=== PATIENT | female | born 2000 | race Caucasian/White ===

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

== ENCOUNTER 2021-09-24 14:06 | Inpatient (IN) ==
--- NOTE | 2021-09-24 14:42 | Emergency Department Note ---
Impression & Plan Depression with suicidal ideation, Grief reaction ED Provider Note NAME: BAUTISTA ALLRED AGE: 20 SEX: F : 2000 ARRIVES VIA: Walk-In INFORMANT: Patient, ED PROVIDER(S): Pedro Weinberg MD Chief Complaint: Suicidal ideation, depressed mood, grief HPI: Patient presents from home and states that she has been having suicidal thoughts fairly frequently and states that it is at least 5 out of 7 days a week. Patient has been taking jumping off of a parking garage to her . Patient recently is suffering grief of losing a close friend several weeks ago which is also been traumatizing. Patient has had depressed mood SI and plan. No current SI at this very moment but states that it has been very frequent. Patient states her appetite has been appropriate but the patient sleep is been poor and not sleeping as well. Patient does not have any access to guns or weapons. The patient denies any alcohol tobacco or drug use. Patient denies any HI or AVH. The patient is seeking inpatient treatment at this time. ROS: See HPI for pertinent positives and negatives. A total of 10 systems were reviewed and otherwise negative. Past medical history: See below Surgical history: See below Social history: See below Physical Exam: GENERAL: Well appearing, well nourished, NAD, wearing glasses, wearing a mask, non-toxic. EYE EXAM: Normal conjunctiva. PERRL, no anisocoria and EOM's grossly intact w/o pain. NECK: Supple, no nuchal rigidity, no adenopathy, non-tender. No signs of meningismus. LUNGS: Clear to auscultation. Normal chest wall mechanics. HEART: NSR, no MRG. ABDOMEN: Abdomen soft, non-tender, normo-active bowel sounds, no masses, no rebound or guarding. BACK: No CVA TTP. SKIN: No rashes and no bruising. UPPER EXTREMITIES: Upper extremities are grossly normal. LOWER EXTREMITIES: Grossly normal, no edema. NEURO EXAM: A&O x3, cranial nerves II-XII grossly intact, normal speech, moves all 4 extremities on command w/o issue. Good finger to nose, no drift, no sensory deficits. Psych: Positive SI, negative HI or AVH. Differential diagnoses: Mood disorder, infection, hypoglycemia, electrolyte abnormalities, cardiac sources, intracerebral event, toxicologic, trauma, neurologic, as well as other pathologies. Course: Patient was seen and evaluated the bedside. Full history physical exam was performed. MDM: Patient was seen and evaluate due to concern for mental wellness. Blood work was obtained he was deemed medically cleared. She was seen and evaluated by the classification case manager. Referral was made and the patient was accepted to [facility] for [facility] psychiatric treatment. Past Med/Surg History Medical History Gastric polyp MDD (major depressive disorder) No pertinent past medical history Surgical History H/O esophagogastroduodenoscopy No pertinent past surgical history Family History Unknown Adopted Social History Smoking Status: Never smoker Hx Alcohol Use: No Hx Substance Use: No Preferred Language: Telugu Communication Ability: Effective Paper Products Inspector Required: No Beliefs That Will Affect Care: None Feels Safe at Home: Yes Assistive Devices: Glasses Allergies Allergies Allergy/AdvReac Type Severity Reaction Status Date / Time risperidone Allergy Unknown CAN'T Verified 09/24/21 15:30 REMEMBER Home Meds Home Medications Medication Instructions Recorded Confirmed aripiprazole 400 mg intramuscular 400 mg IM MONTHLY 04/07/21 09/24/21 suspension,extended release (Abilify Maintena) benztropine 0.5 mg tablet 0.5 mg PO BID 04/07/21 09/24/21 bupropion HCl 200 mg tablet,12 hr 200 mg PO DAILY 04/07/21 09/24/21 sustained-release hydroxyzine HCl 10 mg tablet 10 mg PO HS 04/07/21 09/24/21 lithium carbonate 450 mg 450 mg PO BID 04/07/21 09/24/21 tablet,extended release prazosin 1 mg capsule 1 mg PO HS 09/24/21 09/24/21 Results & Data (ED) Vital Signs Vital Signs - 24 hr 09/24/21 14:36 09/24/21 18:05 Temperature 36.3 C L Temperature Source Temporal Artery Scan Pulse Rate 88 88 Respiratory Rate 16 16 Blood Pressure 145/72 H 108/74 Blood Pressure Mean 96 Pulse Oximetry 100 98 Oxygen Delivery Method Room Air Sepsis Recent Fever Within 48 Hours No Sepsis New/Unexplained Change in Mental Status No Sepsis Action Taken by Nursing No Action Required Home Medications Current Medication List: was personally reviewed by me Laboratory Data Attestation: I reviewed the patient's lab results. Result diagrams: 09/24/21 15:07 09/24/21 15:07 Lab Results 09/24/21 09/24/21 09/24/21 Range/Units 14:47 14:47 14:47 WBC (4.8-10.8) K/uL RBC (4.2-5.4) M/uL Hgb (12.0-16.0) g/dL Hct (37-47) % MCV (80-100) fL MCH (25-34) pg MCHC (32-36) g/dL RDW Std Deviation (36.4-46.3) fL RDW Coeff of Anali (11.5-14.5) % Plt Count (130-400) K/uL MPV (7.4-10.4) fL Immature Gran % (Auto) % Neut % (Auto) % Lymph % (Auto) % [place] % (Auto) % Eos % (Auto) % Baso % (Auto) % Neut # (Auto) (1.4-6.5) K/uL Lymph # (Auto) (1.2-3.4) K/uL [place] # (Auto) (0.11-0.59) K/uL Eos # (Auto) (0-0.5) K/uL Baso # (Auto) (0-0.2) K/uL Immature Gran # (Auto) (0.00-0.02) K/uL Sodium (136-145) mmol/L Potassium (3.5-5.1) mmol/L Chloride (98-107) mmol/L Carbon Dioxide (21-32) mmol/L Anion Gap (3-11) BUN (6-23) mg/dl Creatinine (0.6-1.2) mg/dl Est Cr Clr Drug Dosing ml/min Est GFR ( Amer) ml/min Est GFR (Non-Af Amer) ml/min BUN/Creatinine Ratio (10-20) Glucose (70-99(Fasting)) mg/dl Calcium (8.5-10.1) mg/dl Total Bilirubin (0.2-1.0) mg/dl AST (13-39) U/L ALT (7-52) U/L Alkaline Phosphatase (34-104) U/L Total Protein (6.0-8.3) gm/dl Albumin (3.4-5.0) gm/dl Globulin (2.5-4.0) gm/dl Albumin/Globulin Ratio (0.9-2) TSH (0.300-4.500) uIu/ml HCG, Qual (Negative) Urine Color Yellow Urine Appearance Clear (Clear) Urine pH 8.0 H (4.5-7.5) Ur Specific [place] 1.006 (1.000-1.030) Urine Protein Negative (Negative) Urine Glucose (UA) Negative (Negative) Urine Ketones Negative (Negative) Urine Blood Negative (Negative) Urine Nitrite Negative (Negative) Urine Bilirubin Negative (Negative) Urine Urobilinogen Negative (Negative) Ur Leukocyte Esterase 1+ H (Negative) Urine WBC (Auto) 1-5 (0-5) /hpf Urine RBC (Auto) 0-4 (0-4) /hpf U Hyaline Cast (Auto) 0 (0-5) /lpf U Epithel Cells (Auto) >30 H (0-5) /lpf Urine Bacteria (Auto) Negative (Negative) Urine Test Negative (Negative) Salicylates (3.0-30) mg/dl Urine Opiates Screen Neg (Neg) Ur Methadone, Qual Neg (Neg) Acetaminophen (10-30) ug/ml Urine Barbiturates Neg (Neg) Ur Phencyclidine (PCP) Neg (Neg) U Amphetamin/Meth Scrn Neg (Neg) MDMA (Ecstasy) Screen Neg (Neg) U Benzodiazepines Scrn Neg (Neg) Ur Cocaine Metabolite Neg (Neg) U Marijuana (THC) Screen Neg (Neg) Ethyl Alcohol mg/dL (<10.0) mg/dl 09/24/21 09/24/21 09/24/21 Range/Units 15:07 15:07 15:07 WBC 10.98 H (4.8-10.8) K/uL RBC 4.32 (4.2-5.4) M/uL Hgb 13.6 (12.0-16.0) g/dL Hct 42.1 (37-47) % MCV 97.5 (80-100) fL MCH 31.5 (25-34) pg MCHC 32.3 (32-36) g/dL RDW Std Deviation 48.1 H (36.4-46.3) fL RDW Coeff of Anali 13.5 (11.5-14.5) % Plt Count 383 (130-400) K/uL MPV 9.6 (7.4-10.4) fL Immature Gran % (Auto) 0.1 % Neut % (Auto) 81.6 % Lymph % (Auto) 10.5 % [place] % (Auto) 7.2 % Eos % (Auto) 0.4 % Baso % (Auto) 0.2 % Neut # (Auto) 8.97 H (1.4-6.5) K/uL Lymph # (Auto) 1.15 L (1.2-3.4) K/uL [place] # (Auto) 0.79 H (0.11-0.59) K/uL Eos # (Auto) 0.04 (0-0.5) K/uL Baso # (Auto) 0.02 (0-0.2) K/uL Immature Gran # (Auto) 0.01 (0.00-0.02) K/uL Sodium 138 (136-145) mmol/L Potassium 4.1 (3.5-5.1) mmol/L Chloride 106 (98-107) mmol/L Carbon Dioxide 25 (21-32) mmol/L Anion Gap 7 (3-11) BUN 10 (6-23) mg/dl Creatinine 0.81 (0.6-1.2) mg/dl Est Cr Clr Drug Dosing 90.2 ml/min Est GFR ( Amer) 121.2 ml/min Est GFR (Non-Af Amer) 104.6 ml/min BUN/Creatinine Ratio 12.3 (10-20) Glucose 92 (70-99(Fasting)) mg/dl Calcium 9.5 (8.5-10.1) mg/dl Total Bilirubin 0.4 (0.2-1.0) mg/dl AST 16 (13-39) U/L ALT 14 (7-52) U/L Alkaline Phosphatase 85 (34-104) U/L Total Protein 6.9 (6.0-8.3) gm/dl Albumin 4.3 (3.4-5.0) gm/dl Globulin 2.6 (2.5-4.0) gm/dl Albumin/Globulin Ratio 1.7 (0.9-2) TSH 0.678 (0.300-4.500) uIu/ml HCG, Qual (Negative) Urine Color Urine Appearance (Clear) Urine pH (4.5-7.5) Ur Specific [place] (1.000-1.030) Urine Protein (Negative) Urine Glucose (UA) (Negative) Urine Ketones (Negative) Urine Blood (Negative) Urine Nitrite (Negative) Urine Bilirubin (Negative) Urine Urobilinogen (Negative) Ur Leukocyte Esterase (Negative) Urine WBC (Auto) (0-5) /hpf Urine RBC (Auto) (0-4) /hpf U Hyaline Cast (Auto) (0-5) /lpf U Epithel Cells (Auto) (0-5) /lpf Urine Bacteria (Auto) (Negative) Urine Test (Negative) Salicylates (3.0-30) mg/dl Urine Opiates Screen (Neg) Ur Methadone, Qual (Neg) Acetaminophen (10-30) ug/ml Urine Barbiturates (Neg) Ur Phencyclidine (PCP) (Neg) U Amphetamin/Meth Scrn (Neg) MDMA (Ecstasy) Screen (Neg) U Benzodiazepines Scrn (Neg) Ur Cocaine Metabolite (Neg) U Marijuana (THC) Screen (Neg) Ethyl Alcohol mg/dL (<10.0) mg/dl 09/24/21 09/24/21 09/24/21 Range/Units 15:07 15:07 15:07 WBC (4.8-10.8) K/uL RBC (4.2-5.4) M/uL Hgb (12.0-16.0) g/dL Hct (37-47) % MCV (80-100) fL MCH (25-34) pg MCHC (32-36) g/dL RDW Std Deviation (36.4-46.3) fL RDW Coeff of Anali (11.5-14.5) % Plt Count (130-400) K/uL MPV (7.4-10.4) fL Immature Gran % (Auto) % Neut % (Auto) % Lymph % (Auto) % [place] % (Auto) % Eos % (Auto) % Baso % (Auto) % Neut # (Auto) (1.4-6.5) K/uL Lymph # (Auto) (1.2-3.4) K/uL [place] # (Auto) (0.11-0.59) K/uL Eos # (Auto) (0-0.5) K/uL Baso # (Auto) (0-0.2) K/uL Immature Gran # (Auto) (0.00-0.02) K/uL Sodium (136-145) mmol/L Potassium (3.5-5.1) mmol/L Chloride (98-107) mmol/L Carbon Dioxide (21-32) mmol/L Anion Gap (3-11) BUN (6-23) mg/dl Creatinine (0.6-1.2) mg/dl Est Cr Clr Drug Dosing ml/min Est GFR ( Amer) ml/min Est GFR (Non-Af Amer) ml/min BUN/Creatinine Ratio (10-20) Glucose (70-99(Fasting)) mg/dl Calcium (8.5-10.1) mg/dl Total Bilirubin (0.2-1.0) mg/dl AST (13-39) U/L ALT (7-52) U/L Alkaline Phosphatase (34-104) U/L Total Protein (6.0-8.3) gm/dl Albumin (3.4-5.0) gm/dl Globulin (2.5-4.0) gm/dl Albumin/Globulin Ratio (0.9-2) TSH (0.300-4.500) uIu/ml HCG, Qual Negative (Negative) Urine Color Urine Appearance (Clear) Urine pH (4.5-7.5) Ur Specific [place] (1.000-1.030) Urine Protein (Negative) Urine Glucose (UA) (Negative) Urine Ketones (Negative) Urine Blood (Negative) Urine Nitrite (Negative) Urine Bilirubin (Negative) Urine Urobilinogen (Negative) Ur Leukocyte Esterase (Negative) Urine WBC (Auto) (0-5) /hpf Urine RBC (Auto) (0-4) /hpf U Hyaline Cast (Auto) (0-5) /lpf U Epithel Cells (Auto) (0-5) /lpf Urine Bacteria (Auto) (Negative) Urine Test (Negative) Salicylates < 3.0 L (3.0-30) mg/dl Urine Opiates Screen (Neg) Ur Methadone, Qual (Neg) Acetaminophen < 3 L (10-30) ug/ml Urine Barbiturates (Neg) Ur Phencyclidine (PCP) (Neg) U Amphetamin/Meth Scrn (Neg) MDMA (Ecstasy) Screen (Neg) U Benzodiazepines Scrn (Neg) Ur Cocaine Metabolite (Neg) U Marijuana (THC) Screen (Neg) Ethyl Alcohol mg/dL < 10.0 (<10.0) mg/dl Administered Medications Benztropine Mesylate (Benztropine Mesylate 0.5 Mg Tab) 0.5 mg PO BID IFEOMA Stop: 10/24/21 20:59 Last Admin: 09/24/21 21:28 Dose: 0.5 mg Documented by: [id number] Hydroxyzine HCl (Hydroxyzine Hcl 10 Mg Tab) 10 mg PO HS IFEOMA Stop: 10/24/21 21:59 Last Admin: 09/24/21 21:27 Dose: 10 mg Documented by: [id number] Vona Carbonate (Vona Carbonate 450 Mg Tabcr) 450 mg PO BID IFEOMA Stop: 10/24/21 20:59 Last Admin: 09/24/21 21:28 Dose: 450 mg Documented by: [id number] Prazosin HCl (Prazosin Hcl 1 Mg Cap) 1 mg PO HS IFEOMA Stop: 10/24/21 21:59 Last Admin: 09/24/21 21:49 Dose: 1 mg Documented by: [id number] Discontinued Medications Acetaminophen (Acetaminophen 325 Mg Tab) 650 mg PO NOW STA Stop: 09/24/21 16:34 Last Admin: 09/24/21 16:41 Dose: 650 mg Documented by: [id number] Discharge Plan Visit Data Chief Complaint: Mental Health Evaluation Stated Complaint: MENTAL HEALTH EVALUATION ED Provider: Pedro Weinberg Discharge Problem: Depression with suicidal ideation, Grief reaction Patient Disposition: Admitted As Inpatient Discharge Instructions Interventions: ED Discharge Assessment Last Done: 09/24/21 18:05
[2021-09-24 15:10] LABS: Appearance Urine Clear (Clear); Bacteria Urine Automated Negative (Negative); Bilirubin Urine Negative (Negative); Blood Urine Negative (Negative); Cast Urine Automated 0 /lpf (0-5); Color Urine Yellow; Epithelial Cell Urine Auto >30 /lpf (0-5); Glucose Urine UA Negative (Negative); Ketones Urine Negative (Negative); Leukocyte Esterase Urine 1+ (Negative); Nitrite Urine Negative (Negative); Protein Urine Negative (Negative); RBC Urine Automated 0-4 /hpf (0-4); Specific Gravity Urine 1.006 (1.000-1.030); Urobilinogen Urine Negative (Negative)
[2021-09-24 15:23] LABS: Basophils # (auto) 0.02 K/uL (0-0.2); Basophils % (auto) 0.2 %; Eosinophils # (auto) 0.04 K/uL (0-0.5); Eosinophils % (auto) 0.4 %; Hematocrit (blood only) 42.1 % (37-47); Hemoglobin 13.6 g/dL (12.0-16.0); Immature Granulocytes # (auto) 0.01 K/uL (0.00-0.02); Immature Granulocytes % (auto) 0.1 %; Lymphocytes # (auto) 1.15 K/uL (1.2-3.4); Lymphocytes % (auto) 10.5 %; Mean Corpuscular Hemoglobin 31.5 pg (25-34); Mean Corpuscular Hgb Conc 32.3 g/dL (32-36); Mean Corpuscular Volume 97.5 fL (80-100); Mean Platelet Volume 9.6 fL (7.4-10.4); Monocytes # (auto) 0.79 K/uL (0.11-0.59); Monocytes % (auto) 7.2 %; Neutrophils # (auto) 8.97 K/uL (1.4-6.5); Neutrophils % (auto) 81.6 %; Platelet Count 383 K/uL (130-400); RDW Coefficient of Variation 13.5 % (11.5-14.5); RDW Standard Deviation 48.1 fL (36.4-46.3); Red Blood Count 4.32 M/uL (4.2-5.4); White Blood Count 10.98 K/uL (4.8-10.8)
[2021-09-24 15:52] LABS: Pregnancy Test, Serum Negative (Negative)
[2021-09-24 16:01] LABS: Acetaminophen < 3 ug/ml (10-30); Salicylate < 3.0 mg/dl (3.0-30)
[2021-09-24 16:04] LABS: Albumin Globulin Ratio 1.7 (0.9-2); Albumin Level 4.3 gm/dl (3.4-5.0); BUN Creatinine Ratio 12.3 (10-20); Bilirubin,Total 0.4 mg/dl (0.2-1.0); Calcium 9.5 mg/dl (8.5-10.1); Creatinine Clr Calc Pharmacy 90.2 ml/min; Est GFR (African American) 121.2 ml/min; Est GFR (Non-African American) 104.6 ml/min; Globulin 2.6 gm/dl (2.5-4.0); Potassium 4.1 mmol/L (3.5-5.1); Total Protein 6.9 gm/dl (6.0-8.3)
[2021-09-24 16:06] LABS: Amphetamines+Metham, Urine Neg (Neg); Barbiturates, Urine Neg (Neg); Benzodiazepine, Urine Neg (Neg); Cocaine, Urine Neg (Neg); MDMA (Ecstacy), Urine Neg (Neg); Methadone, Urine Neg (Neg); Opiate, Urine Neg (Neg); Phencyclidine, Urine Neg (Neg)
[2021-09-24 16:29] LABS: Pregnancy Test, Urine Negative (Negative)
[2021-09-24] MEDS ORDERED: ACETAMINOPHEN 325 MG TAB PO STA (16:33)
[2021-09-24] MEDS ORDERED: hydrOXYzine HCl 25 MG TAB PO PRN ×2 (18:09)
[2021-09-24] MEDS ORDERED: ALUMINUM/MAGNESIUM SUSP 30 ML UDC PO PRN (18:09)
[2021-09-24] MEDS ORDERED: BISMUTH SUBSALICYLATE LIQD 236 ML PO PRN (18:09)
[2021-09-24] MEDS ORDERED: MAGNESIUM HYDROXIDE SUSP 30 ML UDC PO PRN (18:09)
[2021-09-24] MEDS ORDERED: ACETAMINOPHEN 325 MG TAB PO PRN (18:09)
[2021-09-24] MEDS ORDERED: SODIUM CHLORIDE 0.65% NA SOLN 45 ML (OCEAN) PRN (18:09)
[2021-09-24] MEDS: BENZTROPINE MESYLATE 0.5 MG TAB PO SCH (21:28)
[2021-09-24] MEDS: LITHIUM CARBONATE 450 MG TABCR PO SCH (21:28)
[2021-09-24] MEDS ORDERED: hydrOXYzine HCl 10 MG TAB PO SCH (22:00)
[2021-09-24] MEDS ORDERED: PRAZOSIN HCL 1 MG CAP PO SCH (22:00)
[2021-09-24] MEDS ORDERED: FLUARIX QUADRIVALENT 0.5 ML SYR IM ONE (23:00)
[2021-09-25] MEDS: LITHIUM CARBONATE 450 MG TABCR PO SCH ×2 (08:51→20:59)
[2021-09-25] MEDS: BENZTROPINE MESYLATE 0.5 MG TAB PO SCH ×2 (08:51→20:53)
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
[2021-09-25] MEDS: buPROPion SR 100 MG TABCR PO SCH (11:58)
[2021-09-25] MEDS: PRAZOSIN HCL 1 MG CAP PO SCH (20:54)
[2021-09-26 09:54] LABS: Chol HDL Ratio 4.1 (0-5)
[2021-09-26] MEDS: BENZTROPINE MESYLATE 0.5 MG TAB PO SCH ×2 (10:55→20:44)
[2021-09-26] MEDS: buPROPion SR 100 MG TABCR PO SCH (10:55)
[2021-09-26] MEDS: LITHIUM CARBONATE 450 MG TABCR PO SCH ×2 (10:55→20:44)
--- NOTE | 2021-09-26 15:53 | Psychiatric Progress Note ---
Date of Service September 26, 2021 Impression / Recommendations Impression The patient is a 20 year old with a history of MDD with psychotic features and PTSD who was admitted for worsening depression and SI with plan to jump from parking garage. 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 The patient is deemed unstable and requires psychiatric hospitalization for diagnostic clarification, safety and stabilization, medicati on management and development of further coping skills. 09/26/21: Mood remains depressed with periods of lability. Fasting lipid panel and glucose were reviewed and normal. Li level 0.7 mmol/L and within therapeutic range for depression and encouragingly normal even in the context of her recent use of ibuprofen prior to admission. Given that lithium level is within normal range will provide prn low dose ibuprofen for pain relief though discussed risks with Hope included by not limited to interactions between Li and Ibuprofen and higher risk for renal side effects and higher risk for lithium toxicity and reviewed lithium toxicity symptoms to be aware of. She consents to have ibuprofen as a prn. (1) Grief reaction: (2) Depression with suicidal ideation: (3) MDD (major depressive disorder), recurrent episode, moderate: (4) Post traumatic stress disorder (PTSD): 09/26/21: Continue current medications. Will add low dose ibuprofen po given stable lithium level and NSAID use prior to admission and adding external cream diclofenac in effort to further minimize necessity for po NSAIDs. 09/25/21: The patient was admitted to the [facility] ([facility] mental health unit) on q15 min checks (behavioral with suicide precautions) for safety. The patient will participate in group, recreational, and milieu therapies and will be offered additional individual and family sessions as clinically appropriate. She just had her Wellbutrin increased by her outpatient psychiatric provider. Will monitor her response to this before considering further titration. Will check lithium level; Cr, TSH normal, EKG from Apr nml. She has been taking ibuprofen for ACL pain, after Li level will determine if this can be safely continued at low dose, for now having her utilize acetaminophen. -Li level qAM and fasting glucose/lipid panel -Continue current medications Inventory Assets Strengths: good outpt supports, resilient, driven Needs: acute stabilization for safety, coping skills, support processing grief Risk Factors Assessment : Yes Do You Have Access To A Gun?: No Health Problems: Yes Mental Health Diagnoses: Yes Substance Use Disorders: No Previous Attempt: Yes Previous Psychiatric Hospitalization: Yes Hopelessness: Yes Smoker: No Protective Factors Assessment Employed: Yes ([id number]) Stable Relationships: Yes Supportive Family: No Good Rapport with Provider: Yes Interval History Identifying Information BAUTISTA ALLRED is a 20-year-old woman who currently lives in [place] in an apartment through the [facility] independent living program, has a history of MDD with psychotic features and PTSD, and was admitted on 09/24/21 18:21 on a 201 voluntary commitment for worsening depression and SI with plan to jump from a parking garage. Chief Complaint "I don't think my lithium is working". Review of Systems Sleep Information Total Hours of Sleep: 6 Sleep Comments: pt on q-15 minute checks Meal Information Percent Meal Consumed - Breakfast: 100 Percent Meal Consumed - Lunch: 90 Percent Meal Consumed - Dinner: 100 Subjective Subjective Patient was seen & assessed and interval progress reviewed with treatment team nursing and social work. Bautista reported lower mood today with more depression. She had a visit with her disease case manager rn Rossana this morning on the unit. This afternoon reports her mood is "sad" and expresses concern about her lithium. Reviewed that her concern is related to frequent mood changes from minute to minute and hour to hour and discussed that lithium is not very helpful for that but rather helps with stabilization of mood from week to week. Discussed that utilizing coping skills will be most helpful for more rapid mood shifts as well as continuing to optimize treatment for depression. She continues to tolerate medications with any side effects. She experienced some SI earlier today after visit with her CM due to feeling "like I don't deserve all of these supports", processed this with her and she was able to identify struggling with "pushing people away when they get close and care about me". Her knee continues to cause a lot of pain with limited relief from acetaminophen. She was taking ibuprofen for it prior to admission and found that helpful. Physical Exam Psychiatric Orientation: alert and oriented x 3 Apperance: appropriately dressed and appropriately groomed Eye Contact: good eye contact Motor Behavior: no abnormal motor movements Speech: normal rate/rhythm/volume of speech Affect: + tearful affect and + labile affect Mood: + depressed mood and + anxious mood Thought Process: goal directed thought process and + concrete thought process Thought Content: reality based without delusions Suicidal Thoughts: denies suicidal thoughts Homicidal Thoughts: denies homicidal thoughts Hallucinations: no auditory hallucinations and no visual hallucinations Cognition: recent memory grossly intact, remote memory grossly intact, attention grossly intact and language grossly intact Estimated Intelligence: consistent with education level Insight: + limited insight Judgement: + limited judgement Vital Signs (Past 24 Hours) Last Vital Signs Temp 36.5 C 09/26/21 06:00 Pulse 105 H 09/26/21 06:23 Resp 16 09/26/21 06:00 BP 114/77 09/26/21 06:23 Pulse Ox 100 09/25/21 09:57 Results & Data ([facility]) Laboratory Results Laboratory Results - last 24 hr 09/26/21 09/26/21 09:17 09:17 Fasting Glucose 84 Triglycerides 134 Cholesterol 172 LDL Cholesterol, Calc 103 VLDL Cholesterol, Calc 27 HDL Cholesterol 42 Cholesterol/HDL Ratio 4.1 [place] 0.7 Current Inpatient Medications Current Inpatient Medications: Current Inpatient Medications Acetaminophen (Acetaminophen 325 Mg Tab) 650 mg PO Q4H PRN PRN Reason: Headache or Minor Fever Stop: 10/24/21 18:08 Al Hydrox/Mg Hydrox/Simethicone (Aluminum/Magnesium Susp 30 Ml Udc) 30 ml PO Q4H PRN PRN Reason: GI Upset Stop: 10/24/21 18:08 Benztropine Mesylate (Benztropine Mesylate 0.5 Mg Tab) 0.5 mg PO BID IFEOMA Stop: 10/25/21 20:59 Last Admin: 09/26/21 10:55 Dose: 0.5 mg Documented by: Bismuth Subsalicylate (Bismuth Subsalicylate Liqd 236 Ml) 15 ml PO PRN PRN PRN Reason: Loose Stool Stop: 10/24/21 18:08 Bupropion HCl (Bupropion Sr 100 Mg Tabcr) 200 mg PO DAILY IFEOMA Stop: 10/25/21 09:44 Last Admin: 09/26/21 10:55 Dose: 200 mg Documented by: Hydroxyzine HCl (Hydroxyzine Hcl 25 Mg Tab) 50 mg PO HSZ PRN PRN Reason: Insomnia Stop: 10/24/21 18:08 Hydroxyzine HCl (Hydroxyzine Hcl 25 Mg Tab) 25 mg PO Q4H PRN PRN Reason: Anxiety Stop: 10/24/21 18:08 [place] Carbonate ([place] Carbonate 450 Mg Tabcr) 450 mg PO BID IFEOAM Stop: 10/25/21 20:59 Last Admin: 09/26/21 10:55 Dose: 450 mg Documented by: Magnesium Hydroxide (Magnesium Hydroxide Susp 30 Ml Udc) 30 ml PO DAILY PRN PRN Reason: Constipation Stop: 10/24/21 18:08 Prazosin HCl (Prazosin Hcl 1 Mg Cap) 1 mg PO HS IFEOMA Stop: 10/25/21 21:59 Last Admin: 09/25/21 20:54 Dose: 1 mg Documented by: Sodium Chloride (Sodium Chloride 0.65% Na Soln 45 Ml ([place])) 1 - 2 sprays NA PRN PRN PRN Reason: Nasal Dryness/Congestion Stop: 10/24/21 18:08 Mental Health & Subst Abuse Tx Psychiatrist Name of Psychiatrist: Nayely Randall Psychiatrist's Date of Appointment with Psychiatrist: 10/25/21 Time of Appointment with Psychiatrist: 2:40 p.m. Psychiatric Appointment Comment: [address] [facility] Therapist Name of Therapist: Nayely Canales Therapist's Date of Therapist Appointment: 09/30/21 Time of Therapist Appointment: 9:00 a.m. Therapy Appointment Comment: [address] [facility] Bag Builder Name of Bag Builder: LEONEL Lamb Post Discharge Appointments Primary Care Physician Name Of Family Doctor: Hubert Mcpherson Primary Care Provider Appointment Comment: [address] [facility]
[2021-09-26] MEDS ORDERED: IBUPROFEN 200 MG TAB PO PRN (16:10)
[2021-09-26] MEDS: PRAZOSIN HCL 1 MG CAP PO SCH (20:44)
[2021-09-27] MEDS: buPROPion SR 100 MG TABCR PO SCH (08:03)
[2021-09-27] MEDS: LITHIUM CARBONATE 450 MG TABCR PO SCH ×2 (08:04→20:44)
[2021-09-27] MEDS: BENZTROPINE MESYLATE 0.5 MG TAB PO SCH ×2 (08:04→20:44)
--- NOTE | 2021-09-27 13:32 | Psychiatric Progress Note ---
Date of Service September 27, 2021 Impression / Recommendations Impression The patient is a 20 year old with a history of MDD with psychotic features and PTSD who was admitted for worsening depression and SI with plan to jump from parking garage. 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 The patient is deemed unstable and requires psychiatric hospitalization for diagnostic clarification, safety and stabilization, medicati on management and development of further coping skills. 09/27/21: Mood remains depressed but slowly improving, still with periods of intermittent SI driven by thoughts of friend who recently by suicide. Lower stomach pain likely due to constipation discussed miralax and colace which she consents to. Continues to tolerate medications well including recently increased Wellbutrin, could consider transition from SR to XL in coming days. (1) Grief reaction: (2) Depression with suicidal ideation: (3) MDD (major depressive disorder), recurrent episode, moderate: (4) Post traumatic stress disorder (PTSD): 09/27/21: Added miralax and colace for constipation. Consider transition from Wellbutrin SR to XL given good tolerance so far from recent SR dose increase. 09/26/21: Continue current medications. Will add low dose ibuprofen po given stable lithium level and NSAID use prior to admission and adding external cream diclofenac in effort to further minimize necessity for po NSAIDs. 09/25/21: The patient was admitted to the [facility] ([facility] mental health unit) on q15 min checks (behavioral with suicide precautions) for safety. The patient will participate in group, recreational, and milieu therapies and will be offered additional individual and family sessions as clinically appropriate. She just had her Wellbutrin increased by her outpatient psychiatric provider. Will monitor her response to this before considering further titration. Will check lithium level; Cr, TSH normal, EKG from Apr nml. She has been taking ibuprofen for ACL pain, after Li level will determine if this can be safely continued at low dose, for now having her utilize acetaminophen. -Li level qAM and fasting glucose/lipid panel -Continue current medications Inventory Assets Strengths: good outpt supports, resilient, driven Needs: acute stabilization for safety, coping skills, support processing grief Risk Factors Assessment : Yes Do You Have Access To A Gun?: No Health Problems: Yes Mental Health Diagnoses: Yes Substance Use Disorders: No Previous Attempt: Yes Previous Psychiatric Hospitalization: Yes Hopelessness: Yes Smoker: No Protective Factors Assessment Employed: Yes ([id number] Stable Relationships: Yes Supportive Family: No Good Rapport with Provider: Yes Interval History Identifying Information BAUTISTA ALLRED is a 20-year-old woman who currently lives in [place] in an apartment through the [facility] independent living program, has a history of MDD with psychotic features and PTSD, and was admitted on 09/24/21 18:21 on a 201 voluntary commitment for worsening depression and SI with plan to jump from a parking garage. Chief Complaint "I'm ok". Review of Systems Sleep Information Total Hours of Sleep: 8 Sleep Comments: pt on q-15 minute checks Meal Information Percent Meal Consumed - Breakfast: 100 Percent Meal Consumed - Lunch: 90 Percent Meal Consumed - Dinner: 90 Subjective Subjective Patient was seen & assessed and interval progress reviewed with treatment team nursing and social work. She reports feeling "ok" today. Experienced SI last night due to "thinking about my friend who ". No SI so far today. She's been having some lower stomach pain: no nausea, continues to have good appetite but hasn't had bowel movement in more than 2 days and she usually goes every day. Denies any other complaints nor medication side effects. Discussed a public affairs specialist she made with memories from her friend who by suicide recently. Physical Exam Psychiatric Orientation: alert and oriented x 3 Apperance: appropriately dressed and appropriately groomed Eye Contact: good eye contact Motor Behavior: no abnormal motor movements Speech: normal rate/rhythm/volume of speech Affect: + depressed affect Mood: + depressed mood and + anxious mood Thought Process: goal directed thought process and + concrete thought process Thought Content: reality based without delusions Suicidal Thoughts: denies suicidal plan and denies suicidal intent; + reports suicidal thoughts (intermittent SI, last in evening yesterday, feels safe in hospital ) Homicidal Thoughts: denies homicidal thoughts Hallucinations: no auditory hallucinations and no visual hallucinations Cognition: recent memory grossly intact, remote memory grossly intact, attention grossly intact and language grossly intact Estimated Intelligence: consistent with education level Insight: + limited insight Judgement: + limited judgement Vital Signs (Past 24 Hours) Last Vital Signs Temp 36.5 C 09/27/21 06:00 Pulse 99 H 09/27/21 06:11 Resp 16 09/27/21 06:00 BP 96/67 L 09/27/21 06:11 Pulse Ox 100 09/25/21 09:57 Results & Data ([facility]) Current Inpatient Medications Current Inpatient Medications: Current Inpatient Medications Acetaminophen (Acetaminophen 325 Mg Tab) 650 mg PO Q4H PRN PRN Reason: Headache or Minor Fever Stop: 10/24/21 18:08 Al Hydrox/Mg Hydrox/Simethicone (Aluminum/Magnesium Susp 30 Ml Udc) 30 ml PO Q4H PRN PRN Reason: GI Upset Stop: 10/24/21 18:08 Benztropine Mesylate (Benztropine Mesylate 0.5 Mg Tab) 0.5 mg PO BID IFEOMA Stop: 10/25/21 20:59 Last Admin: 09/27/21 08:04 Dose: 0.5 mg Documented by: Bismuth Subsalicylate (Bismuth Subsalicylate Liqd 236 Ml) 15 ml PO PRN PRN PRN Reason: Loose Stool Stop: 10/24/21 18:08 Bupropion HCl (Bupropion Sr 100 Mg Tabcr) 200 mg PO DAILY IFEOMA Stop: 10/25/21 09:44 Last Admin: 09/27/21 08:03 Dose: 200 mg Documented by: Diclofenac Sodium (Diclofenac Sod 1% Gel 100 Gm Tube) 2 gm EXT QID PRN PRN Reason: right knee pain Stop: 10/26/21 16:59 Docusate Sodium (Docusate Sodium 100 Mg Cap) 100 mg PO BID IFEOMA Stop: 10/27/21 20:59 Hydroxyzine HCl (Hydroxyzine Hcl 25 Mg Tab) 50 mg PO HSZ PRN PRN Reason: Insomnia Stop: 10/24/21 18:08 Hydroxyzine HCl (Hydroxyzine Hcl 25 Mg Tab) 25 mg PO Q4H PRN PRN Reason: Anxiety Stop: 10/24/21 18:08 Ibuprofen (Ibuprofen 200 Mg Tab) 200 mg PO BID PRN PRN Reason: right knee pain Stop: 10/26/21 16:09 [place] Carbonate ([place] Carbonate 450 Mg Tabcr) 450 mg PO BID IFEOMA Stop: 10/25/21 20:59 Last Admin: 09/27/21 08:04 Dose: 450 mg Documented by: Magnesium Hydroxide (Magnesium Hydroxide Susp 30 Ml Udc) 30 ml PO DAILY PRN PRN Reason: Constipation Stop: 10/24/21 18:08 Last Admin: 09/26/21 18:44 Dose: 30 ml Documented by: Polyethylene Glycol (Polyethylene (Miralax) 17 Gm Pack) 17 gm PO DAILY IFEOMA Stop: 10/28/21 08:59 Prazosin HCl (Prazosin Hcl 1 Mg Cap) 1 mg PO HS IFEOMA Stop: 10/25/21 21:59 Last Admin: 09/26/21 20:44 Dose: 1 mg Documented by: Sodium Chloride (Sodium Chloride 0.65% Na Soln 45 Ml ([place])) 1 - 2 sprays NA PRN PRN PRN Reason: Nasal Dryness/Congestion Stop: 10/24/21 18:08 Mental Health & Subst Abuse Tx Psychiatrist Name of Psychiatrist: Nayely Randall Psychiatrist's Date of Appointment with Psychiatrist: 10/25/21 Time of Appointment with Psychiatrist: 2:40 p.m. Psychiatric Appointment Comment: [address] [facility] Therapist Name of Therapist: Nayely Canales Therapist's Date of Therapist Appointment: 09/30/21 Time of Therapist Appointment: 12pm Therapy Appointment Comment: [address] [facility] Piler Name of Piler: LEONEL Lamb Phone Number for Piler: [phone] Post Discharge Appointments Primary Care Physician Name Of Family Doctor: Hubert Mcpherson Primary Care Provider Appointment Comment: [address] [facility] Specialist Name of Specialist: [facility]- Dr. Avila Phone Number for Specialist: Date of Appointment with Specialist: 10/16/21 Time of Appointment with Specialist: 9:45am Specialty Appointment Comment: [address], [place] [address]
[2021-09-27] MEDS: DICLOFENAC SOD 1% GEL 100 GM TUBE EXT PRN (15:17)
[2021-09-27] MEDS: PRAZOSIN HCL 1 MG CAP PO SCH (20:44)
[2021-09-27] MEDS: DOCUSATE SODIUM 100 MG CAP PO SCH (20:44)
[2021-09-28] MEDS: POLYETHYLENE (MIRALAX) 17 GM PACK PO SCH (07:59)
[2021-09-28] MEDS: DOCUSATE SODIUM 100 MG CAP PO SCH ×2 (08:00→21:34)
[2021-09-28] MEDS: buPROPion SR 100 MG TABCR PO SCH (08:01)
[2021-09-28] MEDS: LITHIUM CARBONATE 450 MG TABCR PO SCH ×2 (08:01→21:35)
[2021-09-28] MEDS: BENZTROPINE MESYLATE 0.5 MG TAB PO SCH ×2 (08:03→21:34)
--- NOTE | 2021-09-28 10:33 | Psychiatric Progress Note ---
Date of Service September 28, 2021 Impression / Recommendations Impression The patient is a 20 year old with a history of MDD with psychotic features and PTSD who was admitted for worsening depression and SI with plan to jump from parking garage. 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 The patient is deemed unstable and requires psychiatric hospitalization for diagnostic clarification, safety and stabilization, medicat ion management and development of further coping skills. 09/28/21: as per Dr. Sadler. Improving (1) MDD (major depressive disorder), recurrent episode, moderate: (2) Grief reaction: (3) Post traumatic stress disorder (PTSD): 09/28/21: Reviewed care 09/25-09/[address] Sadler. Continue current meds and tx plan. 09/27/21: Added miralax and colace for constipation. Consider transition from Wellbutrin SR to XL given good tolerance so far from recent SR dose increase. 09/26/21: Continue current medications. Will add low dose ibuprofen po given stable lithium level and NSAID use prior to admission and adding external cream diclofenac in effort to further minimize necessity for po NSAIDs. 09/25/21: The patient was admitted to the [facility] ([facility]) on q15 min checks (behavioral with suicide precautions) for safety. The patient will participate in group, recreational, and milieu therapies and will be offered additional individual and family sessions as clinically appropriate. She just had her Wellbutrin increased by her outpatient psychiatric provider. Will monitor her response to this before considering further titration. Will check lithium level; Cr, TSH normal, EKG from Apr nml. She has been taking ibuprofen for ACL pain, after Li level will determine if this can be safely continued at low dose, for now having her utilize acetaminophen. -Li level qAM and fasting glucose/lipid panel -Continue current medications Inventory Assets Strengths: good outpt supports, resilient, driven Needs: acute stabilization for safety, coping skills, support processing grief Risk Factors Assessment : Yes Do You Have Access To A Gun?: No Health Problems: Yes Mental Health Diagnoses: Yes Substance Use Disorders: No Previous Attempt: Yes Previous Psychiatric Hospitalization: Yes Hopelessness: Yes Smoker: No Protective Factors Assessment Employed: Yes ([id number]) Stable Relationships: Yes Supportive Family: No Good Rapport with Provider: Yes Interval History Identifying Information BAUTISTA ALLRED is a 20-year-old woman who currently lives in [place] in an apartment through the [facility] independent living program, has a history of MDD with psychotic features and PTSD, and was admitted on 09/24/21 18:21 on a 201 voluntary commitment for worsening depression and SI with plan to jump from a parking garage. Chief Complaint "I feel like I'm gaining coping skills, I still have a harder time in the evening". Review of Systems Sleep Information Total Hours of Sleep: 6 Sleep Comments: pt on q-15 minute checks Meal Information Percent Meal Consumed - Breakfast: 100 Percent Meal Consumed - Lunch: 50 Percent Meal Consumed - Dinner: 100 Subjective Subjective Patient was seen & assessed and interval progress reviewed with nursing and social work. She reports feeling "hyper but a heaviness" as the day goes on. Slept OK. Denies SI. Would like to transition back to her independent living soon. child protective services social worker would like a meeting around safety plan. Physical Exam Psychiatric Orientation: alert and oriented x 3 Apperance: appropriately dressed and appropriately groomed Eye Contact: good eye contact Motor Behavior: no abnormal motor movements Speech: normal rate/rhythm/volume of speech Mood: + anxious mood Thought Process: goal directed thought process Thought Content: reality based without delusions Suicidal Thoughts: denies suicidal thoughts and denies suicidal plan Homicidal Thoughts: denies homicidal thoughts Hallucinations: no auditory hallucinations and no visual hallucinations Cognition: recent memory grossly intact, remote memory grossly intact, attention grossly intact and language grossly intact Estimated Intelligence: consistent with education level Insight: + limited insight Judgement: + limited judgement Vital Signs (Past 24 Hours) Last Vital Signs Temp 36.8 C 09/28/21 06:32 Pulse 72 09/28/21 06:33 Resp 16 09/28/21 06:32 BP 107/74 09/28/21 06:33 Pulse Ox 100 09/25/21 09:57 Results & Data ([facility]) Current Inpatient Medications Current Inpatient Medications: Current Inpatient Medications Acetaminophen (Acetaminophen 325 Mg Tab) 650 mg PO Q4H PRN PRN Reason: Headache or Minor Fever Stop: 10/24/21 18:08 Al Hydrox/Mg Hydrox/Simethicone (Aluminum/Magnesium Susp 30 Ml Udc) 30 ml PO Q4H PRN PRN Reason: GI Upset Stop: 10/24/21 18:08 Benztropine Mesylate (Benztropine Mesylate 0.5 Mg Tab) 0.5 mg PO BID [facility] Stop: 10/25/21 20:59 Last Admin: 09/28/21 08:03 Dose: 0.5 mg Documented by: Bismuth Subsalicylate (Bismuth Subsalicylate Liqd 236 Ml) 15 ml PO PRN PRN PRN Reason: Loose Stool Stop: 10/24/21 18:08 Bupropion HCl (Bupropion Sr 100 Mg Tabcr) 200 mg PO DAILY [facility] Stop: 10/25/21 09:44 Last Admin: 09/28/21 08:01 Dose: 200 mg Documented by: Diclofenac Sodium (Diclofenac Sod 1% Gel 100 Gm Tube) 2 gm EXT QID PRN PRN Reason: right knee pain Stop: 10/26/21 16:59 Last Admin: 09/27/21 15:17 Dose: 2 gm Documented by: Docusate Sodium (Docusate Sodium 100 Mg Cap) 100 mg PO BID [facility] Stop: 10/27/21 20:59 Last Admin: 09/28/21 08:00 Dose: 100 mg Documented by: Hydroxyzine HCl (Hydroxyzine Hcl 25 Mg Tab) 50 mg PO HSZ PRN PRN Reason: Insomnia Stop: 10/24/21 18:08 Hydroxyzine HCl (Hydroxyzine Hcl 25 Mg Tab) 25 mg PO Q4H PRN PRN Reason: Anxiety Stop: 10/24/21 18:08 Ibuprofen (Ibuprofen 200 Mg Tab) 200 mg PO BID PRN PRN Reason: right knee pain Stop: 10/26/21 16:09 Last Admin: 09/28/21 09:40 Dose: 200 mg Documented by: Irene Carbonate (Irene Carbonate 450 Mg Tabcr) 450 mg PO BID [facility] Stop: 10/25/21 20:59 Last Admin: 09/28/21 08:01 Dose: 450 mg Documented by: Magnesium Hydroxide (Magnesium Hydroxide Susp 30 Ml Udc) 30 ml PO DAILY PRN PRN Reason: Constipation Stop: 10/24/21 18:08 Last Admin: 09/26/21 18:44 Dose: 30 ml Documented by: Polyethylene Glycol (Polyethylene (Miralax) 17 Gm Pack) 17 gm PO DAILY [facility] Stop: 10/28/21 08:59 Last Admin: 09/28/21 07:59 Dose: 17 gm Documented by: Prazosin HCl (Prazosin Hcl 1 Mg Cap) 1 mg PO HS [facility] Stop: 10/25/21 21:59 Last Admin: 09/27/21 20:44 Dose: 1 mg Documented by: Sodium Chloride (Sodium Chloride 0.65% Na Soln 45 Ml ([place])) 1 - 2 sprays NA PRN PRN PRN Reason: Nasal Dryness/Congestion Stop: 10/24/21 18:08 Mental Health & Subst Abuse Tx Psychiatrist Name of Psychiatrist: Nayely Randall Psychiatrist's Date of Appointment with Psychiatrist: 10/25/21 Time of Appointment with Psychiatrist: 2:40 p.m. Psychiatric Appointment Comment: [address] [facility] Therapist Name of Therapist: Nayely Canales Therapist's Date of Therapist Appointment: 09/30/21 Time of Therapist Appointment: 12pm Therapy Appointment Comment: [address] [facility] Property Field Adjuster Name of Property Field Adjuster: LEONEL Lamb Phone Number for Property Field Adjuster: [phone] Post Discharge Appointments Primary Care Physician Name Of Family Doctor: Hubert Mcpherson Primary Care Provider Appointment Comment: [address] [facility] Specialist Name of Specialist: [facility]- Dr. Avila Phone Number for Specialist: Date of Appointment with Specialist: 10/16/21 Time of Appointment with Specialist: 9:45am Specialty Appointment Comment: [address], [place] [address]
[2021-09-28] MEDS: DICLOFENAC SOD 1% GEL 100 GM TUBE EXT PRN (11:56)
[2021-09-28] MEDS: PRAZOSIN HCL 1 MG CAP PO SCH (21:34)
[2021-09-29] MEDS: DOCUSATE SODIUM 100 MG CAP PO SCH ×2 (07:38→21:16)
[2021-09-29] MEDS: BENZTROPINE MESYLATE 0.5 MG TAB PO SCH ×2 (07:38→21:15)
[2021-09-29] MEDS: LITHIUM CARBONATE 450 MG TABCR PO SCH ×2 (07:38→21:16)
[2021-09-29] MEDS: POLYETHYLENE (MIRALAX) 17 GM PACK PO SCH (07:38)
[2021-09-29] MEDS: buPROPion SR 100 MG TABCR PO SCH (07:38)
--- NOTE | 2021-09-29 09:10 | Psychiatric Progress Note ---
Date of Service September 29, 2021 Impression / Recommendations Impression The patient is a 20 year old with a history of MDD with psychotic features and PTSD who was admitted for worsening depression and SI with plan to jump from parking garage. 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 09/29/21: as per Dr. Sadler. Improving (1) MDD (major depressive disorder), recurrent episode, moderate: (2) Grief reaction: (3) Post traumatic stress disorder (PTSD): 09/29/21: Patient wants more time to adjust to Wellbutrin SR, continue current meds and tx plan. Safety planning. 09/28/21: Reviewed care 09/25-09/[address] Sadler. Continue current meds and tx plan. 09/27/21: Added miralax and colace for constipation. Consider transition from Wellbutrin SR to XL given good tolerance so far from recent SR dose increase. 09/26/21: Continue current medications. Will add low dose ibuprofen po given stable lithium level and NSAID use prior to admission and adding external cream diclofenac in effort to further minimize necessity for po NSAIDs. 09/25/21: The patient was [facility] on q15 min checks (behavioral with suicide precautions) for safety. The patient will participate in group, recreational, and milieu therapies and will be offered additional individual and family sessions as clinically appropriate. She just had her Wellbutrin increased by her outpatient psychiatric provider. Will monitor her response to this before considering further titration. Will check lithium level; Cr, TSH normal, EKG from Apr nml. She has been taking ibuprofen for ACL pain, after Li level will determine if this can be safely continued at low dose, for now having her utilize acetaminophen. -Li level qAM and fasting glucose/lipid panel -Continue current medications Inventory Assets Strengths: good outpt supports, resilient, driven Needs: acute stabilization for safety, coping skills, support processing grief Risk Factors Assessment : Yes Do You Have Access To A Gun?: No Health Problems: Yes Mental Health Diagnoses: Yes Substance Use Disorders: No Previous Attempt: Yes Previous Psychiatric Hospitalization: Yes Hopelessness: Yes Smoker: No Protective Factors Assessment Employed: Yes ([id number]) Stable Relationships: Yes Supportive Family: No Good Rapport with Provider: Yes Interval History Identifying Information BAUTISTA ALLRED is a 20-year-old woman who currently lives in [place] in an apartment through the [facility] independent living program, has a history of MDD with psychotic features and PTSD, and was admitted on 09/24/21 18:21 on a 201 voluntary commitment for worsening depression and SI with plan to jump from a parking garage. Chief Complaint "I like doing adult stuff". Review of Systems Sleep Information Total Hours of Sleep: 6.75 Sleep Comments: pt given vistaril per rn. pt on q-15 minute checks Meal Information Percent Meal Consumed - Breakfast: 100 Percent Meal Consumed - Lunch: 100 Percent Meal Consumed - Dinner: 90 Subjective Subjective Patient was seen & assessed and interval progress reviewed with nursing and social work. Patient states that father left her without food, etc when in school and so she feels in control by managing her appointments, meetings, getting groceries, and working. Her advocate is requesting in person meeting to review safety plan prior to discharge. c/o some N earlier but has since resolved and was active with peers. Physical Exam Psychiatric Orientation: alert and oriented x 3 Apperance: appropriately dressed and appropriately groomed Eye Contact: good eye contact Motor Behavior: no abnormal motor movements Speech: normal rate/rhythm/volume of speech Affect: euthymic affect Mood: + anxious mood Thought Process: goal directed thought process Thought Content: reality based without delusions Suicidal Thoughts: denies suicidal thoughts Homicidal Thoughts: denies homicidal thoughts Hallucinations: no auditory hallucinations and no visual hallucinations Cognition: recent memory grossly intact, remote memory grossly intact, attention grossly intact and language grossly intact Estimated Intelligence: consistent with education level Insight: + fair insight Vital Signs (Past 24 Hours) Last Vital Signs Temp 36.8 C 09/29/21 06:42 Pulse 96 H 09/29/21 06:42 Resp 16 09/29/21 06:42 BP 92/68 L 09/29/21 06:42 Pulse Ox 100 09/25/21 09:57 Results & Data ([facility]) Current Inpatient Medications Current Inpatient Medications: Current Inpatient Medications Acetaminophen (Acetaminophen 325 Mg Tab) 650 mg PO Q4H PRN PRN Reason: Headache or Minor Fever Stop: 10/24/21 18:08 Al Hydrox/Mg Hydrox/Simethicone (Aluminum/Magnesium Susp 30 Ml Udc) 30 ml PO Q4H PRN PRN Reason: GI Upset Stop: 10/24/21 18:08 Benztropine Mesylate (Benztropine Mesylate 0.5 Mg Tab) 0.5 mg PO BID [facility] Stop: 10/25/21 20:59 Last Admin: 09/29/21 07:38 Dose: 0.5 mg Documented by: Bismuth Subsalicylate (Bismuth Subsalicylate Liqd 236 Ml) 15 ml PO PRN PRN PRN Reason: Loose Stool Stop: 10/24/21 18:08 Bupropion HCl (Bupropion Sr 100 Mg Tabcr) 200 mg PO DAILY [facility] Stop: 10/25/21 09:44 Last Admin: 09/29/21 07:38 Dose: 200 mg Documented by: Diclofenac Sodium (Diclofenac Sod 1% Gel 100 Gm Tube) 2 gm EXT QID PRN PRN Reason: right knee pain Stop: 10/26/21 16:59 Last Admin: 09/28/21 11:56 Dose: 2 gm Documented by: Docusate Sodium (Docusate Sodium 100 Mg Cap) 100 mg PO BID [facility] Stop: 10/27/21 20:59 Last Admin: 09/29/21 07:38 Dose: 100 mg Documented by: Hydroxyzine HCl (Hydroxyzine Hcl 25 Mg Tab) 50 mg PO HSZ PRN PRN Reason: Insomnia Stop: 10/24/21 18:08 Last Admin: 09/29/21 02:35 Dose: 50 mg Documented by: Hydroxyzine HCl (Hydroxyzine Hcl 25 Mg Tab) 25 mg PO Q4H PRN PRN Reason: Anxiety Stop: 10/24/21 18:08 Ibuprofen (Ibuprofen 200 Mg Tab) 200 mg PO BID PRN PRN Reason: right knee pain Stop: 10/26/21 16:09 Last Admin: 09/28/21 09:40 Dose: 200 mg Documented by: Iatan Carbonate (Iatan Carbonate 450 Mg Tabcr) 450 mg PO BID [facility] Stop: 10/25/21 20:59 Last Admin: 09/29/21 07:38 Dose: 450 mg Documented by: Magnesium Hydroxide (Magnesium Hydroxide Susp 30 Ml Udc) 30 ml PO DAILY PRN PRN Reason: Constipation Stop: 10/24/21 18:08 Last Admin: 09/26/21 18:44 Dose: 30 ml Documented by: Polyethylene Glycol (Polyethylene (Miralax) 17 Gm Pack) 17 gm PO DAILY [facility] Stop: 10/28/21 08:59 Last Admin: 09/29/21 07:38 Dose: 17 gm Documented by: Prazosin HCl (Prazosin Hcl 1 Mg Cap) 1 mg PO HS [facility] Stop: 10/25/21 21:59 Last Admin: 09/28/21 21:34 Dose: 1 mg Documented by: Sodium Chloride (Sodium Chloride 0.65% Na Soln 45 Ml ([place])) 1 - 2 sprays NA PRN PRN PRN Reason: Nasal Dryness/Congestion Stop: 10/24/21 18:08 Mental Health & Subst Abuse Tx Psychiatrist Name of Psychiatrist: Nayely Randall Psychiatrist's Date of Appointment with Psychiatrist: 10/25/21 Time of Appointment with Psychiatrist: 2:40 p.m. Psychiatric Appointment Comment: [address] [facility] Therapist Name of Therapist: Nayely Canales Therapist's Date of Therapist Appointment: 09/30/21 Time of Therapist Appointment: 12pm Therapy Appointment Comment: [address] [facility] Clinical Technologist Name of Clinical Technologist: LEONEL Lamb Phone Number for Clinical Technologist: [phone] Case Management Appointment Comment: Follow up with [facility] per your regular schedule. Post Discharge Appointments Primary Care Physician Name Of Family Doctor: Hubert Mcpherson Primary Care Time of Appointment with PCP: Follow up as needed. Provider Appointment Comment: [address] [facility] Specialist Name of Specialist: [facility]- Dr. Avila Phone Number for Specialist: Date of Appointment with Specialist: 10/16/21 Time of Appointment with Specialist: 9:45am Specialty Appointment Comment: [address], [place] [address] Contact Information Discharge Discharge Address: [address] [place] [id number]
[2021-09-29] MEDS: DICLOFENAC SOD 1% GEL 100 GM TUBE EXT PRN (11:42)
[2021-09-29] MEDS: PRAZOSIN HCL 1 MG CAP PO SCH (21:15)
[2021-09-30] MEDS: buPROPion SR 100 MG TABCR PO SCH (08:02)
[2021-09-30] MEDS: BENZTROPINE MESYLATE 0.5 MG TAB PO SCH (08:03)
[2021-09-30] MEDS: LITHIUM CARBONATE 450 MG TABCR PO SCH (08:03)
[2021-09-30] MEDS: DOCUSATE SODIUM 100 MG CAP PO SCH (08:03)
[2021-09-30] MEDS: POLYETHYLENE (MIRALAX) 17 GM PACK PO SCH (08:16)
--- NOTE | 2021-09-30 09:13 | Discharge Summary ---
Date of Service September 30, 2021 History of Present Illness As per Dr. Sadler on admission: Liberty has been experiencing SI for the last three weeks which occurs 4-5 days per day lasting for about 3 hours per day but her SI has intensified in recent weeks to the point of SI with plan of jumping from a parking garage in the context of multiple stressors including recent of a close friend by suicide, ACL tear (right knee about 4 weeks ago) and conflict with her roommates. She's been having worsening depression with decreased appetite. She has many outpatient services including a fish machine feeder through [facility], therapy, case management and psychiatric provider and they encouraged her to seek inpatient care due to her intensifying SI and worsening depression. A couple days ago she was coming home from work and "had this feeling" of wanting to go to the top of the parking garage downtown and jump and . She attributes this to the fact that she's working to become more independent which has been stressful and her best friend, her peer support, by suicide which has been really difficult. She's having more SI but also can speak to deterrents including her strong supports and not wanting to upset them. She likes her job and feels well supported by her outpatient providers. She continues to have intermittent SI but feels safe in the hospital and is relieved to be here. She endorses depression with symptoms of tearfulness "crying spells", increased sleep, lower energy, decreased appetite, lower self-esteem, has been able to concentrate at work, still enjoying drawing/listening to music. She also states she can be good at "hiding her depression" so that sometimes others don't realize she is depressed unless she talks about it. She is currently prescribed [place], Wellbutrin (recently increased on 09/23/21), Cogentin, Hydroxyzine, Prazosin and abilify MORELOS (last injection was 09/23/21). She hasn't noticed any side effects from increased Wellbutrin so far. No side effects to any of her other medications except that sometimes she has dry mouth. Psychiatric ROS notable for: denies anxiety; denies any current symptoms of psychosis, in past experienced difficulty talking/writing/paranoia/romantic delusions; no history of francis; no hx violence; no OCD; no hx eating disorder; no hx self-harm. Physical Exam Psychiatric See admission H&P and DOD assessment. Vital Signs (Past 24 Hours) Last Vital Signs Temp 36.6 C 09/30/21 06:46 Pulse 91 H 09/30/21 06:47 Resp 18 09/30/21 06:46 BP 106/74 09/30/21 06:47 Pulse Ox 100 09/25/21 09:57 Principal Diagnosis major depressive disorder Psychiatric Data See daily stay summary. In short, safety was maintained and the patient was cooperative with care. As her Wellbutrin was just increased prior to admission her outpatient medications were continued. She did take stool softener and Miralax while hospitalized. She met with representatives from her independent living program on the am of discharge. A safety plan was completed prior to discharge. Day of Discharge Assessment Today the patient voices readiness for discharge. They note improvement in mood and deny thoughts to harm self or others. Thoughts remain organized and they are improved from admission. There is no evidence of psychosis. They agree to take mediations as prescribed and keep follow-up appointments. They are stable for discharge to outpatient level of care. Transition of Care Transition Of Care Record: was reviewed with the patient Advance Directives Advance Directives Information Provided: Yes Advance Directives: No Mental Health Advance Directive: No Advance Directives on File: No Living Will: No Power of Concaving Machine Operator: No Advance Directives Reason:: Declines as Mental Health Visit. Risk Factors Assessment : Yes Do You Have Access To A Gun?: No Health Problems: Yes Mental Health Diagnoses: Yes Substance Use Disorders: No Previous Attempt: Yes Previous Psychiatric Hospitalization: Yes Hopelessness: Yes Smoker: No Protective Factors Assessment Employed: Yes ([id number]) Stable Relationships: Yes Supportive Family: No Good Rapport with Provider: Yes Tobacco Cessation at Discharge Tobacco Cessation Medication Prescribed at Discharge: Not Applicable/Non-Smoker Total Time Total Time Spent: Greater Than 30 Minutes Total Time Includes: Examination of the patient, Discharge Planning and Medication Reconciliation Discharge Data Lab Results 09/24/21 09/24/21 09/24/21 14:47 14:47 14:47 WBC RBC Hgb Hct MCV MCH MCHC RDW Std Deviation RDW Coeff of Anali Plt Count MPV Immature Gran % (Auto) Neut % (Auto) Lymph % (Auto) Cecil % (Auto) Eos % (Auto) Baso % (Auto) Neut # (Auto) Lymph # (Auto) Cecil # (Auto) Eos # (Auto) Baso # (Auto) Immature Gran # (Auto) Sodium Potassium Chloride Carbon Dioxide Anion Gap BUN Creatinine Est Cr Clr Drug Dosing Est GFR ( Amer) Est GFR (Non-Af Amer) BUN/Creatinine Ratio Glucose Fasting Glucose Calcium Total Bilirubin AST ALT Alkaline Phosphatase Total Protein Albumin Globulin Albumin/Globulin Ratio Triglycerides Cholesterol LDL Cholesterol, Calc VLDL Cholesterol, Calc HDL Cholesterol Cholesterol/HDL Ratio TSH HCG, Qual Urine Color Yellow Urine Appearance Clear Urine pH 8.0 H Ur Specific [place] 1.006 Urine Protein Negative Urine Glucose (UA) Negative Urine Ketones Negative Urine Blood Negative Urine Nitrite Negative Urine Bilirubin Negative Urine Urobilinogen Negative Ur Leukocyte Esterase 1+ H Urine WBC (Auto) 1-5 Urine RBC (Auto) 0-4 U Hyaline Cast (Auto) 0 U Epithel Cells (Auto) >30 H Urine Bacteria (Auto) Negative Urine Test Negative Salicylates Urine Opiates Screen Neg Ur Methadone, Qual Neg Acetaminophen Urine Barbiturates Neg Ur Phencyclidine (PCP) Neg U Amphetamin/Meth Scrn Neg MDMA (Ecstasy) Screen Neg U Benzodiazepines Scrn Neg [place] Ur Cocaine Metabolite Neg U Marijuana (THC) Screen Neg Ethyl Alcohol mg/dL SARS-CoV-2, RNA, NAAT 09/24/21 09/24/21 09/24/21 15:07 15:07 15:07 WBC 10.98 H RBC 4.32 Hgb 13.6 Hct 42.1 MCV 97.5 MCH 31.5 MCHC 32.3 RDW Std Deviation 48.1 H RDW Coeff of Anali 13.5 Plt Count 383 MPV 9.6 Immature Gran % (Auto) 0.1 Neut % (Auto) 81.6 Lymph % (Auto) 10.5 Cecil % (Auto) 7.2 Eos % (Auto) 0.4 Baso % (Auto) 0.2 Neut # (Auto) 8.97 H Lymph # (Auto) 1.15 L Cecil # (Auto) 0.79 H Eos # (Auto) 0.04 Baso # (Auto) 0.02 Immature Gran # (Auto) 0.01 Sodium 138 Potassium 4.1 Chloride 106 Carbon Dioxide 25 Anion Gap 7 BUN 10 Creatinine 0.81 Est Cr Clr Drug Dosing 90.2 Est GFR ( Amer) 121.2 Est GFR (Non-Af Amer) 104.6 BUN/Creatinine Ratio 12.3 Glucose 92 Fasting Glucose Calcium 9.5 Total Bilirubin 0.4 AST 16 ALT 14 Alkaline Phosphatase 85 Total Protein 6.9 Albumin 4.3 Globulin 2.6 Albumin/Globulin Ratio 1.7 Triglycerides Cholesterol LDL Cholesterol, Calc VLDL Cholesterol, Calc HDL Cholesterol Cholesterol/HDL Ratio TSH 0.678 HCG, Qual Urine Color Urine Appearance Urine pH Ur Specific [place] Urine Protein Urine Glucose (UA) Urine Ketones Urine Blood Urine Nitrite Urine Bilirubin Urine Urobilinogen Ur Leukocyte Esterase Urine WBC (Auto) Urine RBC (Auto) U Hyaline Cast (Auto) U Epithel Cells (Auto) Urine Bacteria (Auto) Urine Test Salicylates Urine Opiates Screen Ur Methadone, Qual Acetaminophen Urine Barbiturates Ur Phencyclidine (PCP) U Amphetamin/Meth Scrn MDMA (Ecstasy) Screen U Benzodiazepines Scrn [place] Ur Cocaine Metabolite U Marijuana (THC) Screen Ethyl Alcohol mg/dL SARS-CoV-2, RNA, NAAT 09/24/21 09/24/21 09/24/21 15:07 15:07 15:07 WBC RBC Hgb Hct MCV MCH MCHC RDW Std Deviation RDW Coeff of Anali Plt Count MPV Immature Gran % (Auto) Neut % (Auto) Lymph % (Auto) Cecil % (Auto) Eos % (Auto) Baso % (Auto) Neut # (Auto) Lymph # (Auto) Cecil # (Auto) Eos # (Auto) Baso # (Auto) Immature Gran # (Auto) Sodium Potassium Chloride Carbon Dioxide Anion Gap BUN Creatinine Est Cr Clr Drug Dosing Est GFR ( Amer) Est GFR (Non-Af Amer) BUN/Creatinine Ratio Glucose Fasting Glucose Calcium Total Bilirubin AST ALT Alkaline Phosphatase Total Protein Albumin Globulin Albumin/Globulin Ratio Triglycerides Cholesterol LDL Cholesterol, Calc VLDL Cholesterol, Calc HDL Cholesterol Cholesterol/HDL Ratio TSH HCG, Qual Negative Urine Color Urine Appearance Urine pH Ur Specific [place] Urine Protein Urine Glucose (UA) Urine Ketones Urine Blood Urine Nitrite Urine Bilirubin Urine Urobilinogen Ur Leukocyte Esterase Urine WBC (Auto) Urine RBC (Auto) U Hyaline Cast (Auto) U Epithel Cells (Auto) Urine Bacteria (Auto) Urine Test Salicylates < 3.0 L Urine Opiates Screen Ur Methadone, Qual Acetaminophen < 3 L Urine Barbiturates Ur Phencyclidine (PCP) U Amphetamin/Meth Scrn MDMA (Ecstasy) Screen U Benzodiazepines Scrn [place] Ur Cocaine Metabolite U Marijuana (THC) Screen Ethyl Alcohol mg/dL < 10.0 SARS-CoV-2, RNA, NAAT 09/24/21 09/26/21 09/26/21 Unknown 09:17 09:17 WBC RBC Hgb Hct MCV MCH MCHC RDW Std Deviation RDW Coeff of Anali Plt Count MPV Immature Gran % (Auto) Neut % (Auto) Lymph % (Auto) Cecil % (Auto) Eos % (Auto) Baso % (Auto) Neut # (Auto) Lymph # (Auto) Cecil # (Auto) Eos # (Auto) Baso # (Auto) Immature Gran # (Auto) Sodium Potassium Chloride Carbon Dioxide Anion Gap BUN Creatinine Est Cr Clr Drug Dosing Est GFR ( Amer) Est GFR (Non-Af Amer) BUN/Creatinine Ratio Glucose Fasting Glucose 84 Calcium Total Bilirubin AST ALT Alkaline Phosphatase Total Protein Albumin Globulin Albumin/Globulin Ratio Triglycerides 134 Cholesterol 172 LDL Cholesterol, Calc 103 VLDL Cholesterol, Calc 27 HDL Cholesterol 42 Cholesterol/HDL Ratio 4.1 TSH HCG, Qual Urine Color Urine Appearance Urine pH Ur Specific [place] Urine Protein Urine Glucose (UA) Urine Ketones Urine Blood Urine Nitrite Urine Bilirubin Urine Urobilinogen Ur Leukocyte Esterase Urine WBC (Auto) Urine RBC (Auto) U Hyaline Cast (Auto) U Epithel Cells (Auto) Urine Bacteria (Auto) Urine Test Salicylates Urine Opiates Screen Ur Methadone, Qual Acetaminophen Urine Barbiturates Ur Phencyclidine (PCP) U Amphetamin/Meth Scrn MDMA (Ecstasy) Screen U Benzodiazepines Scrn [place] 0.7 Ur Cocaine Metabolite U Marijuana (THC) Screen Ethyl Alcohol mg/dL SARS-CoV-2, RNA, NAAT NEGATIVE Hospital Course (1) MDD (major depressive disorder), recurrent episode, moderate: (2) Grief reaction: (3) Post traumatic stress disorder (PTSD): 09/29/21: Patient wants more time to adjust to Wellbutrin SR, continue current meds and tx plan. Safety planning. 09/28/21: Reviewed care 09/25-09/[address] Sadler. Continue current meds and tx plan. 09/27/21: Added miralax and colace for constipation. Consider transition from Wellbutrin SR to XL given good tolerance so far from recent SR dose increase. 09/26/21: Continue current medications. Will add low dose ibuprofen po given stable lithium level and NSAID use prior to admission and adding external cream diclofenac in effort to further minimize necessity for po NSAIDs. 09/25/21: The patient was admitted to the [facility] ([facility] mental health unit) on q15 min checks (behavioral with suicide precautions) for safety. The patient will participate in group, recreational, and milieu therapies and will be offered additional individual and family sessions as clinically appropriate. She just had her Wellbutrin increased by her outpatient psychiatric provider. Will monitor her response to this before considering further titration. Will check lithium level; Cr, TSH normal, EKG from Apr nml. She has been taking ibuprofen for ACL pain, after Li level will determine if this can be safely continued at low dose, for now having her utilize acetaminophen. -Li level qAM and fasting glucose/lipid panel -Continue current medications Mental Health & Subst Abuse Tx Psychiatrist Name of Psychiatrist: Nayely Randall Psychiatrist's Date of Appointment with Psychiatrist: 10/25/21 Time of Appointment with Psychiatrist: 2:40 p.m. Psychiatric Appointment Comment: [facility] Psychiatrist Release of Information: Obtained, Reviewed and Signed Therapist Name of Therapist: Nayely Canales Therapist's Date of Therapist Appointment: 09/30/21 Time of Therapist Appointment: 12pm Therapy Appointment Comment: [facility] Therapist Release of Information: Obtained, Reviewed and Signed Glass Toughening Operator Name of Glass Toughening Operator: LEONEL Lamb Phone Number for Glass Toughening Operator: [phone] Case Management Appointment Comment: Follow up with Roro per your regular schedule. Glass Toughening Operator Release of Information: Obtained, Reviewed and Signed Post Discharge Appointments Primary Care Physician Name Of Family Doctor: Hubert Mcpherson Primary Care Time of Appointment with PCP: Follow up as needed. Provider Appointment Comment: [facility] Primary Care Release of Information: Obtained, Reviewed and Signed Specialist Name of Specialist: [facility]- Dr. Avila Phone Number for Specialist: Date of Appointment with Specialist: 10/16/21 Time of Appointment with Specialist: 9:45am Specialty Appointment Comment: [address], [place] [address] Specialist Release of Information: Obtained, Reviewed and Signed Smoking Cessation Counseling Tobacco Cessation Medication Prescribed at Discharge: Not Applicable/Non-Smoker Contact Information Discharge Discharge Address: [address] [place] [address], [facility] [address] Discharge Plan Discharge Items Patient Disposition: Home - Self-Care Reason For Visit: MENTAL HEALTH EVALUATION Discharge Diagnosis: major depressive disorder Activity: Resume your previous activity Non-emergency contact: Primary Care Provider, Psychiatrist, Therapist and Facialist Call non-emergency contact if: you have any medication questions and your symptoms worsen Follow-up/Referrals: Melody Mcpherson DO [Primary Care Provider] - Diet: Regular Addtl Attending Provider Instructions: SPECIAL CARE INSTRUCTIONS: 1. Follow through with your scheduled aftercare appointments. If unable to keep an appointment, please call to reschedule. 2. Take your medication only as prescribed. Medication should not be changed or stopped without the approval of your doctor. In the event of worsening symptoms or concerns about side effects, contact your doctor immediately. 3. Utilize new healthy coping skills, anger management skills, and stress management skills learned during your hospitalization. Journal feelings and process them with a support person. Identify stressors or situations that may result in relapse, deterioration or inappropriate behaviors and develop a plan to deal with those issues. 4. If your coping skills are ineffective and you are in crisis, contact your outpatient providers for direction. If unable to reach your providers, please call the [facility] CRISIS LINE AT , go to the [facility] walk-in center at [address], [address], [place], or go to the closest Emergency Room. 5. Avoid alcohol and un-prescribed drugs. 6. You have been provided with the Mental Health Advance Directives Pamphlet for your review. 7. Your condition is stable for discharge to outpatient level of care, but recovery is an ongoing process. Ifthoughts to harm yourself or others return, follow the safety plan developed during your stay. Planning for a safe return home includes securing weapons. Our treatment team recommends weaponsbe removed from the home until your outpatient provider reassesses your progress. In rare cases where the items themselvescannot be removed, guns and ammunitionshould be secured separatelyand keys stored by a reliable personoutside of the home. If you were admitted on an involuntary commitment, the police or other legal authorities may be involved in this process. AFTERCARE APPOINTMENTS: * Please call your insurance company prior to your scheduled appointment to confirm your aftercare providers are covered. Take your insurance information to your appointments. WHO TO CALL AND WHEN: Medical Emergencies: For questions or emergencies related to your hospital stay, please contact the Inpatient Behavioral Health Unit at [phone]. A financial solutions advisor is on-call 23/02 for the Behavioral Health Unit for emergencies At any time you feel your situation is an emergency, you may also call 911 immediately. Pending Studies at Discharge: No Stand-Alone Forms: My [facility] [place], Smoking Cessation Medications and DC Order Prescriptions: Continued lithium carbonate 450 mg tablet extended release 450 mg PO BID RF: 0 hydroxyzine HCl 10 mg tablet 10 mg PO HS RF: 0 Abilify Maintena 400 mg suspension,extended rel recon 400 mg IM MONTHLY RF: 0 prazosin 1 mg capsule 1 mg PO HS RF: 0 benztropine 0.5 mg tablet 0.5 mg PO BID 30 Days Qty: 60 RF: 0 bupropion HCl 200 mg tablet sustained-release 12 hr 200 mg PO DAILY 30 Days Qty: 30 RF: 0 Discharge Orders: Discharge Order (Routine); Ordered 09/30/21 Ordered By: Kierra Call Admission Data Admit Date/Time: 09/24/21 18:21 Attending Provider: Kierra Call Admit Provider: Kierra Call Primary Care Provider: Melody Mcpherson Other Interventions: PSY Interdisciplinary Discharge Planning Last Done: 09/29/21 07:57 Coding Level of Care Code 71662 D/C day mgmt > 30 min Diagnoses MDD (major depressive disorder), recurrent episode, moderate F33.1 Grief reaction F43.21 Post traumatic stress disorder (PTSD) F43.10
== END 2021-09-30 10:00 | disposition home or self-care (01) | DRG 885 ==
LOC: ED 14:06 → 3S 18:21

== ENCOUNTER 2022-01-02 11:59 | Inpatient (IN) ==
--- NOTE | 2022-01-02 13:01 | Emergency Department Note ---
Impression & Plan Suicidal thoughts ADMIT ED Provider Note HPI: The patient is a 21-year-old female with history of major depressive disorder, presents the emergency department voluntarily with thoughts of suicidal ideation. Patient states she was having a thought of jumping off a parking garage. She states she is previously had these thoughts as well. Patient states that she is feeling very frustrated over her inability to get a job that pays enough money for her to live the life that she would like to live. She denies any recent alcohol or drug use, denies any actual attempt to harm her self, denies any intentional drug ingestion. On arrival patient is hemodynamically stable, she is calm and cooperative on my initial assessment and otherwise in no acute distress. ROS: -Psychiatric: Suicidal thoughts *10 point review systems was conducted and is otherwise negative unless stated above *Outpatient medications and allergy history reviewed PE: General: Alert, NAD HEENT: Normocephalic, atraumatic Eyes: Extraocular eye movement is intact, no scleral erythema Pulmonary: Clear to auscultation bilaterally, no wheezing Cardio: Regular rate and rhythm GI: Abdomen is soft, nontender : No suprapubic tenderness MSK: No evidence of trauma or malformation of the extremities, no edema Skin: No evidence of rash Neuro: Alert, no focal deficits Psychiatric: Cooperative Medical Decision Making: Patient presented to the emergency department with suicidal thoughts, she has a history of major depressive disorder. She states that she was having thoughts of jumping off of a parking garage to kill herself. On arrival here to the ED she is calm and cooperative, she is otherwise in no acute distress. Patient was medically cleared for case management assessment, she will be signed and is a 201 and was accepted for admission at [facility] for inpatient [facility] care. Patient was admitted in stable condition for further management. Diagnosis: 1. Suicidal thoughts 2. Depression Disposition: ADMIT, 201 Rommel Raygoza DO Emergency Medicine Past Med/Surg History Medical History Acute medial meniscus tear of right knee Depression with suicidal ideation Gastric polyp Grief reaction Major depressive disorder with psychotic features MDD (major depressive disorder) No pertinent past medical history Partial tear of anterior cruciate ligament of knee Post traumatic stress disorder (PTSD) Right ACL tear Surgical History H/O esophagogastroduodenoscopy No pertinent past surgical history No pertinent past surgical history Family History Unknown Adopted Social History Smoking Status: Never smoker Hx Alcohol Use: No Hx Substance Use: No Preferred Language: Yakut Communication Ability: Effective Student Advisor Required: No Beliefs That Will Affect Care: None Feels Safe at Home: Yes Assistive Devices: Glasses Allergies Allergies Allergy/AdvReac Type Severity Reaction Status Date / Time risperidone Allergy Unknown Verified 11/29/21 11:44 Home Meds Home Medications Medication Instructions Recorded Confirmed aripiprazole 400 mg intramuscular 400 mg IM MONTHLY 04/07/21 10/17/21 suspension,extended release (Abilify Maintena) hydroxyzine HCl 10 mg tablet 10 mg PO HS 04/07/21 10/17/21 lithium carbonate 450 mg 450 mg PO BID 04/07/21 10/17/21 tablet,extended release prazosin 1 mg capsule 1 mg PO HS 09/24/21 10/17/21 Previous Rx's Medication Instructions Recorded benztropine 0.5 mg tablet 0.5 mg PO BID 30 Days #60 tab 09/30/21 bupropion HCl 200 mg tablet,12 hr 200 mg PO DAILY 30 Days #30 ea 09/30/21 sustained-release Results & Data (ED) Vital Signs Vital Signs - 24 hr 01/02/22 12:19 01/02/22 14:00 Temperature 36.8 C Temperature Source Temporal Artery Scan Pulse Rate 78 Pulse Rate [Finger] 80 Respiratory Rate 18 14 Respiratory Effort / Characteristics Non-Labored Respiratory Depth Normal Blood Pressure 129/76 Blood Pressure [Right Arm] 109/61 Blood Pressure Mean 93 Blood Pressure Mean [Right Arm] 77 Pulse Oximetry 97 99 Oxygen Delivery Method Room Air Room Air Sepsis Recent Fever Within 48 Hours No Sepsis New/Unexplained Change in Mental Status N/A Sepsis Action Taken by Nursing No Action Required Laboratory Data Result diagrams: 01/02/22 12:48 01/02/22 12:48 Lab Results 01/02/22 01/02/22 01/02/22 Range/Units 12:34 12:48 12:48 WBC 11.50 H (4.8-10.8) K/uL RBC 4.63 (4.2-5.4) M/uL Hgb 14.2 (12.0-16.0) g/dL Hct 42.9 (37-47) % MCV 92.7 (80-100) fL MCH 30.7 (25-34) pg MCHC 33.1 (32-36) g/dL RDW Std Deviation 52.1 H (36.4-46.3) fL RDW Coeff of Anali 15.4 H (11.5-14.5) % Plt Count 415 H (130-400) K/uL MPV 9.5 (7.4-10.4) fL Immature Gran % (Auto) 0.3 % Neut % (Auto) 74.7 % Lymph % (Auto) 17.1 % [place] % (Auto) 6.7 % Eos % (Auto) 1.0 % Baso % (Auto) 0.2 % Neut # (Auto) 8.59 H (1.4-6.5) K/uL Lymph # (Auto) 1.97 (1.2-3.4) K/uL [place] # (Auto) 0.77 H (0.11-0.59) K/uL Eos # (Auto) 0.12 (0-0.5) K/uL Baso # (Auto) 0.02 (0-0.2) K/uL Immature Gran # (Auto) 0.03 H (0.00-0.02) K/uL Sodium 139 (136-145) mmol/L Potassium 3.8 (3.5-5.1) mmol/L Chloride 106 (98-107) mmol/L Carbon Dioxide 25 (21-32) mmol/L Anion Gap 8 (3-11) BUN 12 (6-23) mg/dl Creatinine 0.92 (0.6-1.2) mg/dl Est Cr Clr Drug Dosing 80.6 ml/min Est GFR ( Amer) 103.2 ml/min Est GFR (Non-Af Amer) 89.0 ml/min BUN/Creatinine Ratio 13.0 (10-20) Glucose 90 (70-99(Fasting)) mg/dl Calcium 9.8 (8.5-10.1) mg/dl Total Bilirubin 0.3 (0.2-1.0) mg/dl AST 29 (13-39) U/L ALT 20 (7-52) U/L Alkaline Phosphatase 81 (34-104) U/L Total Protein 7.2 (6.0-8.3) gm/dl Albumin 4.4 (3.4-5.0) gm/dl Globulin 2.8 (2.5-4.0) gm/dl Albumin/Globulin Ratio 1.6 (0.9-2) TSH (0.300-4.500) uIu/ml Salicylates (3.0-30) mg/dl Urine Opiates Screen Neg (Neg) Ur Methadone, Qual Neg (Neg) Acetaminophen (10-30) ug/ml Urine Barbiturates Neg (Neg) Ur Phencyclidine (PCP) Neg (Neg) U Amphetamin/Meth Scrn Neg (Neg) MDMA (Ecstasy) Screen Neg (Neg) U Benzodiazepines Scrn Neg (Neg) Ur Cocaine Metabolite Neg (Neg) U Marijuana (THC) Screen Neg (Neg) Ethyl Alcohol mg/dL (<10.0) mg/dl SARS-CoV-2, RNA, NAAT (NEGATIVE) 01/02/22 01/02/22 01/02/22 Range/Units 12:48 12:48 12:48 WBC (4.8-10.8) K/uL RBC (4.2-5.4) M/uL Hgb (12.0-16.0) g/dL Hct (37-47) % MCV (80-100) fL MCH (25-34) pg MCHC (32-36) g/dL RDW Std Deviation (36.4-46.3) fL RDW Coeff of Anali (11.5-14.5) % Plt Count (130-400) K/uL MPV (7.4-10.4) fL Immature Gran % (Auto) % Neut % (Auto) % Lymph % (Auto) % [place] % (Auto) % Eos % (Auto) % Baso % (Auto) % Neut # (Auto) (1.4-6.5) K/uL Lymph # (Auto) (1.2-3.4) K/uL [place] # (Auto) (0.11-0.59) K/uL Eos # (Auto) (0-0.5) K/uL Baso # (Auto) (0-0.2) K/uL Immature Gran # (Auto) (0.00-0.02) K/uL Sodium (136-145) mmol/L Potassium (3.5-5.1) mmol/L Chloride (98-107) mmol/L Carbon Dioxide (21-32) mmol/L Anion Gap (3-11) BUN (6-23) mg/dl Creatinine (0.6-1.2) mg/dl Est Cr Clr Drug Dosing ml/min Est GFR ( Amer) ml/min Est GFR (Non-Af Amer) ml/min BUN/Creatinine Ratio (10-20) Glucose (70-99(Fasting)) mg/dl Calcium (8.5-10.1) mg/dl Total Bilirubin (0.2-1.0) mg/dl AST (13-39) U/L ALT (7-52) U/L Alkaline Phosphatase (34-104) U/L Total Protein (6.0-8.3) gm/dl Albumin (3.4-5.0) gm/dl Globulin (2.5-4.0) gm/dl Albumin/Globulin Ratio (0.9-2) TSH 1.428 (0.300-4.500) uIu/ml Salicylates < 3.0 L (3.0-30) mg/dl Urine Opiates Screen (Neg) Ur Methadone, Qual (Neg) Acetaminophen < 3 L (10-30) ug/ml Urine Barbiturates (Neg) Ur Phencyclidine (PCP) (Neg) U Amphetamin/Meth Scrn (Neg) MDMA (Ecstasy) Screen (Neg) U Benzodiazepines Scrn (Neg) Ur Cocaine Metabolite (Neg) U Marijuana (THC) Screen (Neg) Ethyl Alcohol mg/dL < 10.0 (<10.0) mg/dl SARS-CoV-2, RNA, NAAT (NEGATIVE) 01/02/22 Range/Units 14:10 WBC (4.8-10.8) K/uL RBC (4.2-5.4) M/uL Hgb (12.0-16.0) g/dL Hct (37-47) % MCV (80-100) fL MCH (25-34) pg MCHC (32-36) g/dL RDW Std Deviation (36.4-46.3) fL RDW Coeff of Anali (11.5-14.5) % Plt Count (130-400) K/uL MPV (7.4-10.4) fL Immature Gran % (Auto) % Neut % (Auto) % Lymph % (Auto) % [place] % (Auto) % Eos % (Auto) % Baso % (Auto) % Neut # (Auto) (1.4-6.5) K/uL Lymph # (Auto) (1.2-3.4) K/uL [place] # (Auto) (0.11-0.59) K/uL Eos # (Auto) (0-0.5) K/uL Baso # (Auto) (0-0.2) K/uL Immature Gran # (Auto) (0.00-0.02) K/uL Sodium (136-145) mmol/L Potassium (3.5-5.1) mmol/L Chloride (98-107) mmol/L Carbon Dioxide (21-32) mmol/L Anion Gap (3-11) BUN (6-23) mg/dl Creatinine (0.6-1.2) mg/dl Est Cr Clr Drug Dosing ml/min Est GFR ( Amer) ml/min Est GFR (Non-Af Amer) ml/min BUN/Creatinine Ratio (10-20) Glucose (70-99(Fasting)) mg/dl Calcium (8.5-10.1) mg/dl Total Bilirubin (0.2-1.0) mg/dl AST (13-39) U/L ALT (7-52) U/L Alkaline Phosphatase (34-104) U/L Total Protein (6.0-8.3) gm/dl Albumin (3.4-5.0) gm/dl Globulin (2.5-4.0) gm/dl Albumin/Globulin Ratio (0.9-2) TSH (0.300-4.500) uIu/ml Salicylates (3.0-30) mg/dl Urine Opiates Screen (Neg) Ur Methadone, Qual (Neg) Acetaminophen (10-30) ug/ml Urine Barbiturates (Neg) Ur Phencyclidine (PCP) (Neg) U Amphetamin/Meth Scrn (Neg) MDMA (Ecstasy) Screen (Neg) U Benzodiazepines Scrn (Neg) Ur Cocaine Metabolite (Neg) U Marijuana (THC) Screen (Neg) Ethyl Alcohol mg/dL (<10.0) mg/dl SARS-CoV-2, RNA, NAAT NEGATIVE (NEGATIVE) Discharge Plan Visit Data Chief Complaint: Mental Health Evaluation Stated Complaint: MENTAL HEALTH, SUICIDIAL THOUGHTS ED Provider: Rommel Raygoza Discharge Problem: Suicidal thoughts Forms Stand Alone Forms: [facility], Suicide Prevention Resources Prescriptions Prescriptions: No Action lithium carbonate 450 mg tablet extended release 450 mg PO BID RF: 0 hydroxyzine HCl 10 mg tablet 10 mg PO HS RF: 0 Abilify Maintena 400 mg suspension,extended rel recon 400 mg IM MONTHLY RF: 0 prazosin 1 mg capsule 1 mg PO HS RF: 0 benztropine 0.5 mg tablet 0.5 mg PO BID 30 Days Qty: 60 RF: 0 bupropion HCl 200 mg tablet sustained-release 12 hr 200 mg PO DAILY 30 Days Qty: 30 RF: 0 Referrals Referrals: Melody Mcpherson DO [Primary Care Provider] -
[2022-01-02 13:04] LABS: Basophils # (auto) 0.02 K/uL (0-0.2); Basophils % (auto) 0.2 %; Eosinophils # (auto) 0.12 K/uL (0-0.5); Hematocrit (blood only) 42.9 % (37-47); Hemoglobin 14.2 g/dL (12.0-16.0); Immature Granulocytes # (auto) 0.03 K/uL (0.00-0.02); Immature Granulocytes % (auto) 0.3 %; Lymphocytes # (auto) 1.97 K/uL (1.2-3.4); Lymphocytes % (auto) 17.1 %; Mean Corpuscular Hemoglobin 30.7 pg (25-34); Mean Corpuscular Hgb Conc 33.1 g/dL (32-36); Mean Corpuscular Volume 92.7 fL (80-100); Mean Platelet Volume 9.5 fL (7.4-10.4); Monocytes # (auto) 0.77 K/uL (0.11-0.59); Monocytes % (auto) 6.7 %; Neutrophils # (auto) 8.59 K/uL (1.4-6.5); Neutrophils % (auto) 74.7 %; Platelet Count 415 K/uL (130-400); RDW Coefficient of Variation 15.4 % (11.5-14.5); RDW Standard Deviation 52.1 fL (36.4-46.3); Red Blood Count 4.63 M/uL (4.2-5.4)
[2022-01-02 13:35] LABS: Acetaminophen < 3 ug/ml (10-30); Salicylate < 3.0 mg/dl (3.0-30)
[2022-01-02 13:36] LABS: Amphetamines+Metham, Urine Neg (Neg); Barbiturates, Urine Neg (Neg); Benzodiazepine, Urine Neg (Neg); Cocaine, Urine Neg (Neg); MDMA (Ecstacy), Urine Neg (Neg); Methadone, Urine Neg (Neg); Opiate, Urine Neg (Neg); Phencyclidine, Urine Neg (Neg)
[2022-01-02 13:37] LABS: Albumin Globulin Ratio 1.6 (0.9-2); Albumin Level 4.4 gm/dl (3.4-5.0); Bilirubin,Total 0.3 mg/dl (0.2-1.0); Calcium 9.8 mg/dl (8.5-10.1); Creatinine Clr Calc Pharmacy 80.6 ml/min; Est GFR (African American) 103.2 ml/min; Globulin 2.8 gm/dl (2.5-4.0); Potassium 3.8 mmol/L (3.5-5.1); Total Protein 7.2 gm/dl (6.0-8.3)
[2022-01-02] MEDS ORDERED: SODIUM CHLORIDE 0.65% NA SOLN 45 ML (OCEAN) PRN (16:05)
[2022-01-02] MEDS ORDERED: MAGNESIUM HYDROXIDE SUSP 30 ML UDC PO PRN (16:05)
[2022-01-02] MEDS ORDERED: ALUMINUM/MAGNESIUM SUSP 30 ML UDC PO PRN (16:05)
[2022-01-02] MEDS ORDERED: hydrOXYzine HCl 25 MG TAB PO PRN ×2 (16:05)
[2022-01-02] MEDS ORDERED: BISMUTH SUBSALICYLATE LIQD 236 ML PO PRN (16:05)
[2022-01-02] MEDS: BENZTROPINE MESYLATE 0.5 MG TAB PO SCH (20:48)
[2022-01-02] MEDS: MIRTAZAPINE TAB 15 MG TAB PO SCH (20:48)
[2022-01-02] MEDS: LITHIUM CARBONATE 450 MG TABCR PO SCH (20:48)
[2022-01-02] MEDS: ARIPiprazole 10 MG TAB PO SCH (20:48)
[2022-01-02] MEDS: hydrOXYzine HCl 10 MG TAB PO SCH (20:48)
[2022-01-02] MEDS ORDERED: PRAZOSIN HCL 1 MG CAP PO SCH (22:00)
[2022-01-02] MEDS ORDERED: cloNIDine HCL 0.1 MG TAB PO SCH (22:00)
[2022-01-03] MEDS: BENZTROPINE MESYLATE 0.5 MG TAB PO SCH ×2 (08:47→20:15)
[2022-01-03] MEDS: LITHIUM CARBONATE 450 MG TABCR PO SCH ×2 (08:48→20:15)
[2022-01-03] MEDS: hydrOXYzine HCl 10 MG TAB PO SCH ×2 (08:48→20:15)
[2022-01-03] MEDS: ACETAMINOPHEN 325 MG TAB PO PRN (08:51)
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
[2022-01-03] MEDS: MIRTAZAPINE TAB 15 MG TAB PO SCH (20:16)
[2022-01-03] MEDS: ARIPiprazole 10 MG TAB PO SCH (20:36)
[2022-01-04] MEDS: LITHIUM CARBONATE 450 MG TABCR PO SCH ×2 (08:30→21:00)
[2022-01-04] MEDS: hydrOXYzine HCl 10 MG TAB PO SCH ×2 (08:31→21:00)
[2022-01-04] MEDS: ESCITALOPRAM OXALATE 10 MG TAB PO SCH (08:31)
[2022-01-04] MEDS: BENZTROPINE MESYLATE 0.5 MG TAB PO SCH ×2 (08:32→21:00)
--- NOTE | 2022-01-04 09:07 | Psychiatric Progress Note ---
Date of Service January 04, 2022 Impression / Recommendations Impression 20 year old woman with significant trauma, MDD with psychotic features and PTSD presenting with worsening depression and SI with plan and recent command AH in the context of ACL tear and need for surgery adding to recent stress. Diagnostically consistent with MDD with psychotic features vs MDD and complex trauma. Suspect mild intellectual disability vs specific learning disability vs unspecified developmental delay superimposed on chronic childhood trauma and PTSD contributing to concrete thought process and difficulty adpating to changes/new stressors such as ACL injury and need for treatment. The patient is deemed unstable and requires psychiatric hospitalization for diagnostic clarification, safety and stabilization, medication management and development of further coping skills. 01/04/22: Continues to have depression with intermittent SI. Tolerating first dose of escitalopram. Less dizziness last night with discontinuation of clonidine. Reviewed fasting lipid panel and glucose which are normal. Last Li level was 0.9 in October 2021. No dose changes since that time and no side effects from [place] so not felt to need a new level. (1) Major depressive disorder with psychotic features: (2) MDD (major depressive disorder), recurrent episode, moderate: (3) Suicidal thoughts: (4) Acute medial meniscus tear of right knee: (5) Post traumatic stress disorder (PTSD): 01/04/22: Continue with escitalopram 5mg qd and other medications and tx plan. 01/03/2022: The patient was admitted to the [facility] ([facility] mental [facility] unit) on q15 min checks (behavioral with suicide precautions) for safety. The patient will participate in group, recreational, and milieu therapies and will be offered additional individual and family sessions as clinically appropriate. -start escitalopram 5mg qd -discontinue clonidine due to suspected orthostatic hypotension -fasting lipid panel and glucose in the morning Inventory Assets Strengths: trauma survivor, strong outpatient supports, resilient, good rapport with providers Needs: additional coping skills, medication adjustments, stabilization Suicide Risk Level Suicide Risk Level: High (q15 min suicide checks) (High-Moderate) Suicide Risk Level Comments: Current SI but feels safe in the hospital, no plans in this setting but still with SI and about jumping from parking garage if she returned to outpatient setting, able to safety contract and will alert nursing if SI intensifies/changes/she feels unable to remain safe or if command AH occur. Risk Factors Assessment : Yes Do You Have Access To A Gun?: No Health Problems: Yes Mental Health Diagnoses: Yes Substance Use Disorders: No Previous Attempt: Yes Previous Psychiatric Hospitalization: Yes Hopelessness: Yes Protective Factors Assessment Employed: No Stable Relationships: Yes Supportive Family: No Good Rapport with Provider: Yes Interval History Identifying Information BAUTISTA ALLRED is a 21-year-old woman who currently lives in [place] in an apartment through the [facility] independent living program, has a history of MDD with psychotic features and PTSD, and was admitted on 01/02/22 16:05 on a 201 voluntary commitment for worsening depression and SI with plan of jumping from a parking garage roof. Chief Complaint "I'm ok". Review of Systems Sleep Information Total Hours of Sleep: 8 Sleep Comments: pt on q-15 minute checks Meal Information Percent Meal Consumed - Breakfast: 100 Percent Meal Consumed - Lunch: 100 Percent Meal Consumed - Dinner: 100 Subjective Subjective Patient was seen & assessed and interval progress reviewed with treatment team nursing and social work. [facility] CM noted that a potential stressful trigger may have been a discussion they had with Bautista last week about eventually needing to transition out of the independent [facility] where she lives. Bautista denies that this was a stressor though later reported it a concern of hers to social work. had some SI without plan or intent yesterday evening. None so far today. Tolerating initial dose of escitalopram without any side effects. Had some dizziness yesterday evening but none after taking her qhs meds. Slept well even without the clonidine. Physical Exam Psychiatric Orientation: alert and oriented x 3 Apperance: appropriately dressed and appropriately groomed Eye Contact: good eye contact Motor Behavior: no abnormal motor movements Speech: normal rate/rhythm/volume of speech Affect: + depressed affect and + anxious affect Mood: + depressed mood and + anxious mood Thought Process: + concrete thought process Thought Content: reality based without delusions Suicidal Thoughts: denies suicidal plan and denies suicidal intent; + reports suicidal thoughts Homicidal Thoughts: denies homicidal thoughts Hallucinations: no auditory hallucinations and no visual hallucinations Cognition: recent memory grossly intact, remote memory grossly intact, attention grossly intact and language grossly intact Estimated Intelligence: consistent with education level Insight: + limited insight Judgement: + limited judgement Vital Signs (Past 24 Hours) Last Vital Signs Temp 36.5 C 01/04/22 06:39 Pulse 78 01/04/22 06:40 Resp 16 01/04/22 06:39 BP 107/76 01/04/22 06:40 Pulse Ox 100 01/02/22 16:16 Results & Data ([facility]) Laboratory Results Laboratory Results - last 24 hr 01/04/22 07:52 Fasting Glucose Pending Triglycerides Pending Cholesterol Pending LDL Cholesterol, Calc Pending VLDL Cholesterol, Calc Pending HDL Cholesterol Pending Cholesterol/HDL Ratio Pending Current Inpatient Medications Current Inpatient Medications: Current Inpatient Medications Acetaminophen (Acetaminophen 325 Mg Tab) 650 mg PO Q4H PRN PRN Reason: Headache or Minor Fever Stop: 02/01/22 16:04 Last Admin: 01/03/22 08:51 Dose: 650 mg Documented by: Al Hydrox/Mg Hydrox/Simethicone (Aluminum/Magnesium Susp 30 Ml Udc) 30 ml PO Q4H PRN PRN Reason: GI Upset Stop: 02/01/22 16:04 Aripiprazole (Aripiprazole 10 Mg Tab) 10 mg PO HS [facility] Stop: 02/01/22 21:59 Last Admin: 01/03/22 20:36 Dose: 10 mg Documented by: Benztropine Mesylate (Benztropine Mesylate 0.5 Mg Tab) 0.5 mg PO BID [facility]EOMA Stop: 02/01/22 20:59 Last Admin: 01/04/22 08:32 Dose: 0.5 mg Documented by: Bismuth Subsalicylate (Bismuth Subsalicylate Liqd 236 Ml) 15 ml PO PRN PRN PRN Reason: Loose Stool Stop: 02/01/22 16:04 Escitalopram Oxalate (Escitalopram Oxalate 10 Mg Tab) 5 mg PO QAM [facility] Stop: 02/03/22 08:59 Last Admin: 01/04/22 08:31 Dose: 5 mg Documented by: Hydroxyzine HCl (Hydroxyzine Hcl 25 Mg Tab) 50 mg PO HSZ PRN PRN Reason: Insomnia Stop: 02/01/22 16:04 Hydroxyzine HCl (Hydroxyzine Hcl 25 Mg Tab) 25 mg PO Q4H PRN PRN Reason: Anxiety Stop: 02/01/22 16:04 Hydroxyzine HCl (Hydroxyzine Hcl 10 Mg Tab) 10 mg PO BID [facility] Stop: 02/01/22 20:59 Last Admin: 01/04/22 08:31 Dose: 10 mg Documented by: [place] Carbonate ([place] Carbonate 450 Mg Tabcr) 450 mg PO BID [facility] Stop: 02/01/22 20:59 Last Admin: 01/04/22 08:30 Dose: 450 mg Documented by: Magnesium Hydroxide (Magnesium Hydroxide Susp 30 Ml Udc) 30 ml PO DAILY PRN PRN Reason: Constipation Stop: 02/01/22 16:04 Mirtazapine (Mirtazapine Tab 15 Mg Tab) 15 mg PO HS [facility] Stop: 02/01/22 21:59 Last Admin: 01/03/22 20:16 Dose: 15 mg Documented by: Sodium Chloride (Sodium Chloride 0.65% Na Soln 45 Ml ([place])) 1 - 2 sprays NA PRN PRN PRN Reason: Nasal Dryness/Congestion Stop: 02/01/22 16:04 Mental Health & Subst Abuse Tx Therapist Name of Therapist: Nayely Ashton [facility] Name of Finisher Denture: MARGARITO Dunne [facility] Post Discharge Appointments Primary Care Physician Name Of Family Doctor: Melody Mcpherson
[2022-01-04] MEDS: ARIPiprazole 10 MG TAB PO SCH (21:01)
[2022-01-04] MEDS: MIRTAZAPINE TAB 15 MG TAB PO SCH (21:01)
[2022-01-05] MEDS: hydrOXYzine HCl 10 MG TAB PO SCH ×2 (08:44→20:17)
[2022-01-05] MEDS: LITHIUM CARBONATE 450 MG TABCR PO SCH ×2 (08:44→20:17)
[2022-01-05] MEDS: ESCITALOPRAM OXALATE 10 MG TAB PO SCH (08:44)
[2022-01-05] MEDS: BENZTROPINE MESYLATE 0.5 MG TAB PO SCH ×2 (08:44→20:18)
--- NOTE | 2022-01-05 09:10 | Psychiatric Progress Note ---
Date of Service January 05, 2022 Impression / Recommendations Impression 20 year old woman with significant trauma, MDD with psychotic features and PTSD presenting with worsening depression and SI with plan and recent command AH in the context of ACL tear and need for surgery adding to recent stress. Diagnostically consistent with MDD with psychotic features vs MDD and complex trauma. Suspect mild intellectual disability vs specific learning disability vs unspecified developmental delay superimposed on chronic childhood trauma and PTSD contributing to concrete thought process and difficulty adpating to changes/new stressors such as ACL injury and need for treatment. The patient is deemed unstable and requires psychiatric hospitalization for diagnostic clarification, safety and stabilization, medication management and development of further coping skills. 01/05/22: Continues to have depression with intermittent SI. Some nausea since starting escitalopram so will hold off on dose titration for at least one more day. Some sleep difficulty but no dizziness with discontinuation of clonidine. Ongoing discussion about ways to seek support during times of stress and behavioral activation strategies. (1) Major depressive disorder with psychotic features: (2) MDD (major depressive disorder), recurrent episode, moderate: (3) Suicidal thoughts: (4) Acute medial meniscus tear of right knee: (5) Post traumatic stress disorder (PTSD): 01/05/22: Continue with current medications and tx plan. 01/04/22: Continue with escitalopram 5mg qd and other medications and tx plan. 01/03/2022: The patient was admitted to the [facility] ([facility] mental health unit) on q15 min checks (behavioral with suicide precautions) for safety. The patient will participate in group, recreational, and milieu therapies and will be offered additional individual and family sessions as clinically appropriate. -start escitalopram 5mg qd -discontinue clonidine due to suspected orthostatic hypotension -fasting lipid panel and glucose in the morning Inventory Assets Strengths: trauma survivor, strong outpatient supports, resilient, good rapport with providers Needs: additional coping skills, medication adjustments, stabilization Suicide Risk Level Suicide Risk Level: High (q15 min suicide checks) (High-Moderate) Suicide Risk Level Comments: Current SI but feels safe in the hospital, no plans in this setting but still with SI and about jumping from parking garage if she returned to outpatient setting, able to safety contract and will alert nursing if SI intensifies/changes/she feels unable to remain safe or if command AH occur. Risk Factors Assessment : Yes Do You Have Access To A Gun?: No Health Problems: Yes Mental Health Diagnoses: Yes Substance Use Disorders: No Previous Attempt: Yes Previous Psychiatric Hospitalization: Yes Hopelessness: Yes Protective Factors Assessment Employed: No Stable Relationships: Yes Supportive Family: No Good Rapport with Provider: Yes Interval History Identifying Information BAUTISTA ALLRED is a 21-year-old woman who currently lives in [place] in an apartment through the [facility] independent living program, has a history of MDD with psychotic features and PTSD, and was admitted on 01/02/22 16:05 on a 201 voluntary commitment for worsening depression and SI with plan of jumping from a parking garage roof. Chief Complaint "I'm a little better than when I first came in". Review of Systems Sleep Information Total Hours of Sleep: 7.25 Sleep Comments: pt on q-15 minute checks Meal Information Percent Meal Consumed - Breakfast: 90 Percent Meal Consumed - Lunch: 75 Percent Meal Consumed - Dinner: 75 Subjective Subjective Patient was seen & assessed and interval progress reviewed with treatment team nursing and social work. She had some nausea yesterday and again a little bit today. No other medication side effects. She continues to have intermittent SI. No dizziness last night with evening medications. Had some awakenings overnight but feels rested. Denies any knee pain. Discussed that she is recognizing she needs to spend more time "taking care of myself" and we discussed things that would be helpful for her mood such as going for walks, listening to music or playing with a new [place] car she got for her birthday. Physical Exam Psychiatric Orientation: alert and oriented x 3 Apperance: appropriately dressed and appropriately groomed Eye Contact: good eye contact Motor Behavior: no abnormal motor movements Speech: normal rate/rhythm/volume of speech Affect: + depressed affect and + anxious affect Mood: + depressed mood and + anxious mood Thought Process: + concrete thought process Thought Content: reality based without delusions Suicidal Thoughts: denies suicidal plan and denies suicidal intent; + reports suicidal thoughts Homicidal Thoughts: denies homicidal thoughts Hallucinations: no auditory hallucinations and no visual hallucinations Cognition: recent memory grossly intact, remote memory grossly intact, attention grossly intact and language grossly intact Estimated Intelligence: consistent with education level Insight: + limited insight Judgement: + limited judgement Vital Signs (Past 24 Hours) Last Vital Signs Temp 36.3 C L 01/05/22 06:38 Pulse 88 01/05/22 06:39 Resp 16 01/05/22 06:38 BP 109/72 01/05/22 06:39 Pulse Ox 100 01/02/22 16:16 Results & Data ([facility]) Laboratory Results Laboratory Results - last 24 hr 01/04/22 07:52 Fasting Glucose 95 Triglycerides 109 Cholesterol 169 LDL Cholesterol, Calc 91 VLDL Cholesterol, Calc 22 HDL Cholesterol 56 Cholesterol/HDL Ratio 3.0 Current Inpatient Medications Current Inpatient Medications: Current Inpatient Medications Acetaminophen (Acetaminophen 325 Mg Tab) 650 mg PO Q4H PRN PRN Reason: Headache or Minor Fever Stop: 02/01/22 16:04 Last Admin: 01/03/22 08:51 Dose: 650 mg Documented by: Al Hydrox/Mg Hydrox/Simethicone (Aluminum/Magnesium Susp 30 Ml Udc) 30 ml PO Q4H PRN PRN Reason: GI Upset Stop: 02/01/22 16:04 Aripiprazole (Aripiprazole 10 Mg Tab) 10 mg PO HS IFEOMA Stop: 02/01/22 21:59 Last Admin: 01/04/22 21:01 Dose: 10 mg Documented by: Benztropine Mesylate (Benztropine Mesylate 0.5 Mg Tab) 0.5 mg PO BID IFEOMA Stop: 02/01/22 20:59 Last Admin: 01/05/22 08:44 Dose: 0.5 mg Documented by: Bismuth Subsalicylate (Bismuth Subsalicylate Liqd 236 Ml) 15 ml PO PRN PRN PRN Reason: Loose Stool Stop: 02/01/22 16:04 Escitalopram Oxalate (Escitalopram Oxalate 10 Mg Tab) 5 mg PO QAM IFEOMA Stop: 02/03/22 08:59 Last Admin: 01/05/22 08:44 Dose: 5 mg Documented by: Hydroxyzine HCl (Hydroxyzine Hcl 25 Mg Tab) 50 mg PO HSZ PRN PRN Reason: Insomnia Stop: 02/01/22 16:04 Hydroxyzine HCl (Hydroxyzine Hcl 25 Mg Tab) 25 mg PO Q4H PRN PRN Reason: Anxiety Stop: 02/01/22 16:04 Hydroxyzine HCl (Hydroxyzine Hcl 10 Mg Tab) 10 mg PO BID IFEOMA Stop: 02/01/22 20:59 Last Admin: 01/05/22 08:44 Dose: 10 mg Documented by: [place] Carbonate ([place] Carbonate 450 Mg Tabcr) 450 mg PO BID IFEOMA Stop: 02/01/22 20:59 Last Admin: 01/05/22 08:44 Dose: 450 mg Documented by: Magnesium Hydroxide (Magnesium Hydroxide Susp 30 Ml Udc) 30 ml PO DAILY PRN PRN Reason: Constipation Stop: 02/01/22 16:04 Mirtazapine (Mirtazapine Tab 15 Mg Tab) 15 mg PO HS IFEOMA Stop: 02/01/22 21:59 Last Admin: 01/04/22 21:01 Dose: 15 mg Documented by: Sodium Chloride (Sodium Chloride 0.65% Na Soln 45 Ml ([place])) 1 - 2 sprays NA PRN PRN PRN Reason: Nasal Dryness/Congestion Stop: 02/01/22 16:04 Mental Health & Subst Abuse Tx Therapist Name of Therapist: Nayely Ashton [facility] Inside Sales Supervisor Name of Inside Sales Supervisor: MARGARITO Dunne [facility] Post Discharge Appointments Primary Care Physician Name Of Family Doctor: Melody Mcpherson
[2022-01-05] MEDS: MIRTAZAPINE TAB 15 MG TAB PO SCH (20:16)
[2022-01-05] MEDS: ARIPiprazole 10 MG TAB PO SCH (20:16)
[2022-01-06] MEDS: LITHIUM CARBONATE 450 MG TABCR PO SCH ×2 (08:39→20:11)
[2022-01-06] MEDS: ESCITALOPRAM OXALATE 10 MG TAB PO SCH (08:40)
[2022-01-06] MEDS: hydrOXYzine HCl 10 MG TAB PO SCH ×2 (08:40→20:11)
[2022-01-06] MEDS: BENZTROPINE MESYLATE 0.5 MG TAB PO SCH ×2 (08:41→20:11)
--- NOTE | 2022-01-06 09:12 | Psychiatric Progress Note ---
Date of Service January 06, 2022 Impression / Recommendations Impression 20 year old woman with significant trauma, MDD with psychotic features and PTSD presenting with worsening depression and SI with plan and recent command AH in the context of ACL tear and need for surgery adding to recent stress. Diagnostically consistent with MDD with psychotic features vs MDD and complex trauma. Suspect mild intellectual disability vs specific learning disability vs unspecified developmental delay superimposed on chronic childhood trauma and PTSD contributing to concrete thought process and difficulty adpating to changes/new stressors such as ACL injury and need for treatment. The patient is deemed unstable and requires psychiatric hospitalization for diagnostic clarification, safety and stabilization, medication management and development of further coping skills. 01/06/22: Continues to have depression with intermittent SI, mood improving a little bit and sleep improved. No nausea, agrees to titrate escitalopram to 10mg qd for depression. Ongoing discussion about ways to seek support during times of stress and behavioral activation strategies and incorporating gratitude practices. (1) Major depressive disorder with psychotic features: (2) MDD (major depressive disorder), recurrent episode, moderate: (3) Suicidal thoughts: (4) Acute medial meniscus tear of right knee: (5) Post traumatic stress disorder (PTSD): 01/06/22: Increase escitalopram to 10mg qd. 01/05/22: Continue with current medications and tx plan. 01/04/22: Continue with escitalopram 5mg qd and other medications and tx plan. 01/03/2022: The patient was admitted to the [facility] ([facility] mental health unit) on q15 min checks (behavioral with suicide precautions) for safety. The patient will participate in group, recreational, and milieu therapies and will be offered additional individual and family sessions as clinically appropriate. -start escitalopram 5mg qd -discontinue clonidine due to suspected orthostatic hypotension -fasting lipid panel and glucose in the morning Inventory Assets Strengths: trauma survivor, strong outpatient supports, resilient, good rapport with providers Needs: additional coping skills, medication adjustments, stabilization Suicide Risk Level Suicide Risk Level: High (q15 min suicide checks) (High-Moderate) Suicide Risk Level Comments: Current SI but feels safe in the hospital, no plans in this setting but still with SI and about jumping from parking garage if she returned to outpatient setting, able to safety contract and will alert nursing if SI intensifies/changes/she feels unable to remain safe or if command AH occur. Risk Factors Assessment : Yes Do You Have Access To A Gun?: No Health Problems: Yes Mental Health Diagnoses: Yes Substance Use Disorders: No Previous Attempt: Yes Previous Psychiatric Hospitalization: Yes Hopelessness: Yes Protective Factors Assessment Employed: No Stable Relationships: Yes Supportive Family: No Good Rapport with Provider: Yes Interval History Identifying Information BAUTISTA ALLRED is a 21-year-old woman who currently lives in [place] in an apartment through the [facility] independent living program, has a history of MDD with psychotic features and PTSD, and was admitted on 01/02/22 16:05 on a 201 voluntary commitment for worsening depression and SI with plan of jumping from a parking garage roof. Chief Complaint "Yes I still have those thoughts I'm trying to cope with it". Review of Systems Sleep Information Total Hours of Sleep: 6.75 Sleep Comments: pt on q-15 minute checks Meal Information Percent Meal Consumed - Breakfast: 90 Percent Meal Consumed - Lunch: 100 Percent Meal Consumed - Dinner: 100 Nutrition Comment: pt ate 100% of dinner and ordered additional food Subjective Subjective Patient was seen & assessed and interval progress reviewed with treatment team nursing and social work. Bautista reports some improvement in mood but continues to have intermittent SI. She does feel that the escitalopram is helping noting "I think it's working". She denies any nausea today, agreeable to increasing dose tomorrow. Attending groups. Slept well last night and no dizziness since stopping clonidine. Physical Exam Psychiatric Orientation: alert and oriented x 3 Apperance: appropriately dressed and appropriately groomed Eye Contact: good eye contact Motor Behavior: no abnormal motor movements Speech: normal rate/rhythm/volume of speech Affect: + depressed affect and + anxious affect Mood: + depressed mood and + anxious mood Thought Process: + concrete thought process Thought Content: reality based without delusions Suicidal Thoughts: denies suicidal plan and denies suicidal intent; + reports suicidal thoughts Homicidal Thoughts: denies homicidal thoughts Hallucinations: no auditory hallucinations and no visual hallucinations Cognition: recent memory grossly intact, remote memory grossly intact, attention grossly intact and language grossly intact Estimated Intelligence: consistent with education level Insight: + limited insight Judgement: + limited judgement Vital Signs (Past 24 Hours) Last Vital Signs Temp 36.5 C 01/06/22 06:00 Pulse 82 01/06/22 06:44 Resp 16 01/06/22 06:00 BP 98/76 L 01/06/22 06:44 Pulse Ox 99 01/06/22 06:00 Results & Data ([facility]) Current Inpatient Medications Current Inpatient Medications: Current Inpatient Medications Acetaminophen (Acetaminophen 325 Mg Tab) 650 mg PO Q4H PRN PRN Reason: Headache or Minor Fever Stop: 02/01/22 16:04 Last Admin: 01/03/22 08:51 Dose: 650 mg Documented by: Al Hydrox/Mg Hydrox/Simethicone (Aluminum/Magnesium Susp 30 Ml Udc) 30 ml PO Q4H PRN PRN Reason: GI Upset Stop: 02/01/22 16:04 Aripiprazole (Aripiprazole 10 Mg Tab) 10 mg PO HS IFEOMA Stop: 02/01/22 21:59 Last Admin: 01/05/22 20:16 Dose: 10 mg Documented by: Benztropine Mesylate (Benztropine Mesylate 0.5 Mg Tab) 0.5 mg PO BID IFEOMA Stop: 02/01/22 20:59 Last Admin: 01/06/22 08:41 Dose: 0.5 mg Documented by: Bismuth Subsalicylate (Bismuth Subsalicylate Liqd 236 Ml) 15 ml PO PRN PRN PRN Reason: Loose Stool Stop: 02/01/22 16:04 Escitalopram Oxalate (Escitalopram Oxalate 10 Mg Tab) 5 mg PO QAM IFEOMA Stop: 02/03/22 08:59 Last Admin: 01/06/22 08:40 Dose: 5 mg Documented by: Hydroxyzine HCl (Hydroxyzine Hcl 25 Mg Tab) 50 mg PO HSZ PRN PRN Reason: Insomnia Stop: 02/01/22 16:04 Hydroxyzine HCl (Hydroxyzine Hcl 25 Mg Tab) 25 mg PO Q4H PRN PRN Reason: Anxiety Stop: 02/01/22 16:04 Hydroxyzine HCl (Hydroxyzine Hcl 10 Mg Tab) 10 mg PO BID IFEOMA Stop: 02/01/22 20:59 Last Admin: 01/06/22 08:40 Dose: 10 mg Documented by: [place] Carbonate ([place] Carbonate 450 Mg Tabcr) 450 mg PO BID IFEOMA Stop: 02/01/22 20:59 Last Admin: 01/06/22 08:39 Dose: 450 mg Documented by: Magnesium Hydroxide (Magnesium Hydroxide Susp 30 Ml Udc) 30 ml PO DAILY PRN PRN Reason: Constipation Stop: 02/01/22 16:04 Mirtazapine (Mirtazapine Tab 15 Mg Tab) 15 mg PO HS IFEOMA Stop: 02/01/22 21:59 Last Admin: 01/05/22 20:16 Dose: 15 mg Documented by: Sodium Chloride (Sodium Chloride 0.65% Na Soln 45 Ml ([place])) 1 - 2 sprays NA PRN PRN PRN Reason: Nasal Dryness/Congestion Stop: 02/01/22 16:04 Mental Health & Subst Abuse Tx Therapist Name of Therapist: Nayely Ashton [facility] Datastage Developer Name of Datastage Developer: MARGARITO Dnune MHID Post Discharge Appointments Primary Care Physician Name Of Family Doctor: Melody Mcpherson
[2022-01-06] MEDS: ARIPiprazole 10 MG TAB PO SCH (20:11)
[2022-01-06] MEDS: MIRTAZAPINE TAB 15 MG TAB PO SCH (20:11)
--- NOTE | 2022-01-07 09:05 | Psychiatric Progress Note ---
Date of Service January 07, 2022 Impression / Recommendations Impression 20 year old woman with significant trauma, MDD with psychotic features and PTSD presenting with worsening depression and SI with plan and recent command AH in the context of ACL tear and need for surgery adding to recent stress. Diagnostically consistent with MDD with psychotic features vs MDD and complex trauma. Suspect mild intellectual disability vs specific learning disability vs unspecified developmental delay superimposed on chronic childhood trauma and PTSD contributing to concrete thought process and difficulty adpating to changes/new stressors such as ACL injury and need for treatment. The patient is deemed unstable and requires psychiatric hospitalization for diagnostic clarification, safety and stabilization, medication management and development of further coping skills. 01/07/22: Worsening of depression, anxiety and SI after diffcult meeting with her outpatient CM and YSB advocate. Unsafe to safety plan outside hospital setting. Tolerating higher dose of escitalopram 10mg. (1) Major depressive disorder with psychotic features: (2) MDD (major depressive disorder), recurrent episode, moderate: (3) Suicidal thoughts: (4) Acute medial meniscus tear of right knee: (5) Post traumatic stress disorder (PTSD): 01/07/22: Continue current medications and tx plan. 01/06/22: Increase escitalopram to 10mg qd. 01/05/22: Continue with current medications and tx plan. 01/04/22: Continue with escitalopram 5mg qd and other medications and tx plan. 01/03/2022: The patient was admitted to the [facility] ([facility] mental health unit) on q15 min checks (behavioral with suicide precautions) for safety. The patient will participate in group, recreational, and milieu therapies and will be offered additional individual and family sessions as clinically appropriate. -start escitalopram 5mg qd -discontinue clonidine due to suspected orthostatic hypotension -fasting lipid panel and glucose in the morning Inventory Assets Strengths: trauma survivor, strong outpatient supports, resilient, good rapport with providers Needs: additional coping skills, medication adjustments, stabilization Suicide Risk Level Suicide Risk Level: High (q15 min suicide checks) (High-Moderate) Suicide Risk Level Comments: Current SI but feels safe in the hospital, no plans in this setting but still with SI and about jumping from parking garage if she returned to outpatient setting, able to safety contract and will alert nursing if SI intensifies/changes/she feels unable to remain safe or if command AH occur. Risk Factors Assessment : Yes Do You Have Access To A Gun?: No Health Problems: Yes Mental Health Diagnoses: Yes Substance Use Disorders: No Previous Attempt: Yes Previous Psychiatric Hospitalization: Yes Hopelessness: Yes Protective Factors Assessment Employed: No Stable Relationships: Yes Supportive Family: No Good Rapport with Provider: Yes Interval History Identifying Information BAUTISTA ALLRED is a 21-year-old woman who currently lives in [place] in an apartment through the [facility] independent living program, has a history of MDD with psychotic features and PTSD, and was admitted on 01/02/22 16:05 on a 201 voluntary commitment for worsening depression and SI with plan of jumping from a parking garage roof. Chief Complaint "I feel like a failure". Review of Systems Sleep Information Total Hours of Sleep: 9.25 Sleep Comments: pt on q-15 minute checks Meal Information Percent Meal Consumed - Breakfast: 100 Percent Meal Consumed - Lunch: 100 Percent Meal Consumed - Dinner: 75 Nutrition Comment: pt ate 100% of dinner and ordered additional food Subjective Subjective Patient was seen & assessed and interval progress reviewed with treatment team nursing and social work. Increased distress after a call with her outpatient piano case maker yesterday. Slept well overnight. She has been able to reflect on what aspects of group are helpful. Her outpatient YSB advocate and CM visited this morning. They told her she will need to transition out of the [facility] due to her mental health needs. She was very tearful regarding this with increased SI stating "I feel like a failure" and noting that "I feel like I'm trying so hard and it's just not working" and that "It feels like I'm at work and crawling across a battlefield just trying not to get hit". She was very tearful and spoke of ongoing grief related to friend who by suicide and that she thinks she would have acted on her SI with plan had she not come to the hospital because "I'm so tired, I can't keep trying". Validated her grief and depression and efforts and praised her for seeking help and support when needed. She denies any side effects from escitalopram though asked "I think I need more of the medication, can we go higher"-reviewed that it will take time for the increased dose to take effect and she agreed with this plan. Physical Exam Psychiatric Orientation: alert and oriented x 3 Apperance: appropriately dressed and appropriately groomed Eye Contact: good eye contact Motor Behavior: no abnormal motor movements Speech: normal rate/rhythm/volume of speech Affect: + depressed affect, + anxious affect and + tearful affect Mood: + depressed mood and + anxious mood Thought Process: + concrete thought process Thought Content: reality based without delusions Suicidal Thoughts: denies suicidal plan and denies suicidal intent; + reports suicidal thoughts Homicidal Thoughts: denies homicidal thoughts Hallucinations: no auditory hallucinations and no visual hallucinations Cognition: recent memory grossly intact, remote memory grossly intact, attention grossly intact and language grossly intact Estimated Intelligence: consistent with education level Insight: + limited insight Judgement: + limited judgement Vital Signs (Past 24 Hours) Last Vital Signs Temp 36.5 C 01/07/22 06:53 Pulse 89 01/07/22 06:53 Resp 16 01/07/22 06:53 BP 100/68 01/07/22 06:53 Pulse Ox 99 01/06/22 06:00 Results & Data ([facility]) Current Inpatient Medications Current Inpatient Medications: Current Inpatient Medications Acetaminophen (Acetaminophen 325 Mg Tab) 650 mg PO Q4H PRN PRN Reason: Headache or Minor Fever Stop: 02/01/22 16:04 Last Admin: 01/03/22 08:51 Dose: 650 mg Documented by: Al Hydrox/Mg Hydrox/Simethicone (Aluminum/Magnesium Susp 30 Ml Udc) 30 ml PO Q4H PRN PRN Reason: GI Upset Stop: 02/01/22 16:04 Aripiprazole (Aripiprazole 10 Mg Tab) 10 mg PO HS IFEOMA Stop: 02/01/22 21:59 Last Admin: 01/06/22 20:11 Dose: 10 mg Documented by: Benztropine Mesylate (Benztropine Mesylate 0.5 Mg Tab) 0.5 mg PO BID IFEOMA Stop: 02/01/22 20:59 Last Admin: 01/06/22 20:11 Dose: 0.5 mg Documented by: Bismuth Subsalicylate (Bismuth Subsalicylate Liqd 236 Ml) 15 ml PO PRN PRN PRN Reason: Loose Stool Stop: 02/01/22 16:04 Escitalopram Oxalate (Escitalopram Oxalate 10 Mg Tab) 10 mg PO QAM IFEOMA Stop: 02/06/22 08:59 Hydroxyzine HCl (Hydroxyzine Hcl 25 Mg Tab) 50 mg PO HSZ PRN PRN Reason: Insomnia Stop: 02/01/22 16:04 Hydroxyzine HCl (Hydroxyzine Hcl 25 Mg Tab) 25 mg PO Q4H PRN PRN Reason: Anxiety Stop: 02/01/22 16:04 Hydroxyzine HCl (Hydroxyzine Hcl 10 Mg Tab) 10 mg PO BID IFEOMA Stop: 02/01/22 20:59 Last Admin: 01/06/22 20:11 Dose: 10 mg Documented by: [place] Carbonate ([place] Carbonate 450 Mg Tabcr) 450 mg PO BID IFEOMA Stop: 02/01/22 20:59 Last Admin: 01/06/22 20:11 Dose: 450 mg Documented by: Magnesium Hydroxide (Magnesium Hydroxide Susp 30 Ml Udc) 30 ml PO DAILY PRN PRN Reason: Constipation Stop: 02/01/22 16:04 Mirtazapine (Mirtazapine Tab 15 Mg Tab) 15 mg PO HS IFEOMA Stop: 02/01/22 21:59 Last Admin: 01/06/22 20:11 Dose: 15 mg Documented by: Sodium Chloride (Sodium Chloride 0.65% Na Soln 45 Ml ([place])) 1 - 2 sprays NA PRN PRN PRN Reason: Nasal Dryness/Congestion Stop: 02/01/22 16:04 Mental Health & Subst Abuse Tx Therapist Name of Therapist: Nayely Ashton [facility] Land Surveying Party Chief Name of Land Surveying Party Chief: MARGARITO Dunne MHID Post Discharge Appointments Primary Care Physician Name Of Family Doctor: Meloyd Mcpherson
[2022-01-07] MEDS: BENZTROPINE MESYLATE 0.5 MG TAB PO SCH ×2 (09:33→20:35)
[2022-01-07] MEDS: ESCITALOPRAM OXALATE 10 MG TAB PO SCH (09:33)
[2022-01-07] MEDS: hydrOXYzine HCl 10 MG TAB PO SCH ×2 (09:34→20:36)
[2022-01-07] MEDS: LITHIUM CARBONATE 450 MG TABCR PO SCH ×2 (09:34→20:36)
[2022-01-07] MEDS: ACETAMINOPHEN 325 MG TAB PO PRN (16:13)
[2022-01-07] MEDS: ARIPiprazole 10 MG TAB PO SCH (20:36)
[2022-01-07] MEDS: MIRTAZAPINE TAB 15 MG TAB PO SCH (20:36)
[2022-01-08] MEDS: BENZTROPINE MESYLATE 0.5 MG TAB PO SCH ×2 (08:48→20:26)
[2022-01-08] MEDS: ESCITALOPRAM OXALATE 10 MG TAB PO SCH (08:48)
[2022-01-08] MEDS: LITHIUM CARBONATE 450 MG TABCR PO SCH ×2 (08:49→20:26)
[2022-01-08] MEDS: hydrOXYzine HCl 10 MG TAB PO SCH ×2 (08:49→20:26)
--- NOTE | 2022-01-08 09:14 | Psychiatric Progress Note ---
Date of Service January 08, 2022 Impression / Recommendations Impression 20 year old woman with significant trauma, MDD with psychotic features and PTSD presenting with worsening depression and SI with plan and recent command AH in the context of ACL tear and need for surgery adding to recent stress. Diagnostically consistent with MDD with psychotic features vs MDD and complex trauma. Suspect mild intellectual disability vs specific learning disability vs unspecified developmental delay superimposed on chronic childhood trauma and PTSD contributing to concrete thought process and difficulty adpating to changes/new stressors such as ACL injury and need for treatment. The patient is deemed unstable and requires psychiatric hospitalization for diagnostic clarification, safety and stabilization, medication management and development of further coping skills. 01/08/22: Mood is improving but still with SI today (intrusive ego-dystonic thoughts today) and working on coping skills to manage this. Less tearful and anxious today. Tolerating the escitalopram. (1) Major depressive disorder with psychotic features: (2) MDD (major depressive disorder), recurrent episode, moderate: (3) Suicidal thoughts: (4) Acute medial meniscus tear of right knee: (5) Post traumatic stress disorder (PTSD): 01/08/22: Continue current medications and tx plan. 01/07/22: Continue current medications and tx plan. 01/06/22: Increase escitalopram to 10mg qd. 01/05/22: Continue with current medications and tx plan. 01/04/22: Continue with escitalopram 5mg qd and other medications and tx plan. 01/03/2022: The patient was admitted to the [facility] ([facility] unit) on q15 min checks (behavioral with suicide precautions) for safety. The patient will participate in group, recreational, and milieu therapies and will be offered additional individual and family sessions as clinically appropriate. -start escitalopram 5mg qd -discontinue clonidine due to suspected orthostatic hypotension -fasting lipid panel and glucose in the morning Inventory Assets Strengths: trauma survivor, strong outpatient supports, resilient, good rapport with providers Needs: additional coping skills, medication adjustments, stabilization Suicide Risk Level Suicide Risk Level: High (q15 min suicide checks) Suicide Risk Level Comments: Current SI but feels safe in the hospital and now thoughts are more ego-dystonic and she is better able to distract from them, able to safety contract and will alert nursing if SI intensifies/changes/she feels unable to remain safe or if command AH occur. Risk Factors Assessment : Yes Do You Have Access To A Gun?: No Health Problems: Yes Mental Health Diagnoses: Yes Substance Use Disorders: No Previous Attempt: Yes Previous Psychiatric Hospitalization: Yes Hopelessness: Yes Protective Factors Assessment Employed: No Stable Relationships: Yes Supportive Family: No Good Rapport with Provider: Yes Interval History Identifying Information BAUTISTA ALLRED is a 21-year-old woman who currently lives in [place] in an apartment through the [facility] independent living program, has a history of MDD with psychotic features and PTSD, and was admitted on 01/02/22 16:05 on a 201 voluntary commitment for worsening depression and SI with plan of jumping from a parking garage roof. Chief Complaint "I feel better today, I'm trying not to listen to the thoughts of suicide". Review of Systems Sleep Information Total Hours of Sleep: 8.75 Sleep Comments: pt on q-15 minute checks Meal Information Percent Meal Consumed - Breakfast: 100 Percent Meal Consumed - Lunch: 25 Percent Meal Consumed - Dinner: 75 Nutrition Comment: pt ate 100% of dinner and ordered additional food Subjective Subjective Patient was seen & assessed and interval progress reviewed with treatment team nursing and social work. She notes stress from upcoming transition away from [facility] services but has been able to process this more and feels better able to cope with this. She denies any active SI, notes at times she has intrusive SI but feels she has some coping skills to help keep these thoughts out of her mind. Tearful at one point when discussing the challenge of this. Reviewed ways to challenge intrusive thoughts and trying not to label or electrotype molder thoughts or emotions as good or bad or feel guilty about but rather to focus on what we do with these thoughts i.e. not acting on them, seeking support, utilizing coping skills like distraction. 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 No side effects from the escitalopram today. Had a LOUIS yesterday evening but this resolved. Physical Exam Psychiatric Orientation: alert and oriented x 3 Apperance: appropriately dressed and appropriately groomed Eye Contact: good eye contact Motor Behavior: no abnormal motor movements Speech: normal rate/rhythm/volume of speech Affect: + depressed affect, + anxious affect and + tearful affect Mood: + depressed mood and + anxious mood Thought Process: + concrete thought process Thought Content: reality based without delusions Suicidal Thoughts: denies suicidal plan and denies suicidal intent; + reports suicidal thoughts Homicidal Thoughts: denies homicidal thoughts Hallucinations: no auditory hallucinations and no visual hallucinations Cognition: recent memory grossly intact, remote memory grossly intact, attention grossly intact and language grossly intact Estimated Intelligence: consistent with education level Insight: + fair insight Judgement: + fair judgement Vital Signs (Past 24 Hours) Last Vital Signs Temp 36.9 C 01/08/22 06:53 Pulse 81 01/08/22 06:54 Resp 16 01/08/22 06:53 BP 101/70 01/08/22 06:54 Pulse Ox 99 01/06/22 06:00 Results & Data ([facility]) Current Inpatient Medications Current Inpatient Medications: Current Inpatient Medications Acetaminophen (Acetaminophen 325 Mg Tab) 650 mg PO Q4H PRN PRN Reason: Headache or Minor Fever Stop: 02/01/22 16:04 Last Admin: 01/07/22 16:13 Dose: 650 mg Documented by: Al Hydrox/Mg Hydrox/Simethicone (Aluminum/Magnesium Susp 30 Ml Udc) 30 ml PO Q4H PRN PRN Reason: GI Upset Stop: 02/01/22 16:04 Aripiprazole (Aripiprazole 10 Mg Tab) 10 mg PO HS IFEOMA Stop: 02/01/22 21:59 Last Admin: 01/07/22 20:36 Dose: 10 mg Documented by: Benztropine Mesylate (Benztropine Mesylate 0.5 Mg Tab) 0.5 mg PO BID IFEOMA Stop: 02/01/22 20:59 Last Admin: 01/08/22 08:48 Dose: 0.5 mg Documented by: Bismuth Subsalicylate (Bismuth Subsalicylate Liqd 236 Ml) 15 ml PO PRN PRN PRN Reason: Loose Stool Stop: 02/01/22 16:04 Escitalopram Oxalate (Escitalopram Oxalate 10 Mg Tab) 10 mg PO QAM IFEOMA Stop: 02/06/22 08:59 Last Admin: 01/08/22 08:48 Dose: 10 mg Documented by: Hydroxyzine HCl (Hydroxyzine Hcl 25 Mg Tab) 50 mg PO HSZ PRN PRN Reason: Insomnia Stop: 02/01/22 16:04 Hydroxyzine HCl (Hydroxyzine Hcl 25 Mg Tab) 25 mg PO Q4H PRN PRN Reason: Anxiety Stop: 02/01/22 16:04 Hydroxyzine HCl (Hydroxyzine Hcl 10 Mg Tab) 10 mg PO BID IFEOMA Stop: 02/01/22 20:59 Last Admin: 01/08/22 08:49 Dose: 10 mg Documented by: [place] Carbonate ([place] Carbonate 450 Mg Tabcr) 450 mg PO BID IFEOMA Stop: 02/01/22 20:59 Last Admin: 01/08/22 08:49 Dose: 450 mg Documented by: Magnesium Hydroxide (Magnesium Hydroxide Susp 30 Ml Udc) 30 ml PO DAILY PRN PRN Reason: Constipation Stop: 02/01/22 16:04 Mirtazapine (Mirtazapine Tab 15 Mg Tab) 15 mg PO HS IFEOMA Stop: 02/01/22 21:59 Last Admin: 01/07/22 20:36 Dose: 15 mg Documented by: Sodium Chloride (Sodium Chloride 0.65% Na Soln 45 Ml ([place])) 1 - 2 sprays NA PRN PRN PRN Reason: Nasal Dryness/Congestion Stop: 02/01/22 16:04 Mental Health & Subst Abuse Tx Therapist Name of Therapist: Nayely Ashton [facility] Name of [facility]: MARGARITO Dunne [facility] Post Discharge Appointments Primary Care Physician Name Of Family Doctor: Melody Mcpherson
[2022-01-08] MEDS: MIRTAZAPINE TAB 15 MG TAB PO SCH (20:26)
[2022-01-08] MEDS: ARIPiprazole 10 MG TAB PO SCH (20:26)
[2022-01-09] MEDS: ESCITALOPRAM OXALATE 10 MG TAB PO SCH (08:28)
[2022-01-09] MEDS: BENZTROPINE MESYLATE 0.5 MG TAB PO SCH (08:28)
[2022-01-09] MEDS: hydrOXYzine HCl 10 MG TAB PO SCH (08:28)
[2022-01-09] MEDS: LITHIUM CARBONATE 450 MG TABCR PO SCH (08:29)
--- NOTE | 2022-01-09 09:14 | Discharge Summary ---
Date of Service January 09, 2022 History of Present Illness Hope is familiar to me from her admission to [facility] in September 2021 and presents for admission to inpatient psychiatry with similar symptoms of worsening depression, intensifying SI with plan and ongoing stress related to possible ACL surgery. She states she is stressed about wanting to get ACL surgery but feeling that her employment case manager won't be able to support her if that happens. She worries about not being able to function at home because her apartment with a lot of steps. She started to have thoughts of SI two weeks ago she doesn't know why she's been having those feelings, only stressors is possible ACL surgery. She also endorses feelings of worthlessness, "that I don't mean a lot", "I feel horrible" "I have so much mental pain, I can't take the pain anymore". Sleep has been good. Appetite has been "off and on". Denies hearing any voices currently. Prior to admission, two days ago she experienced command AH which were telling her to kill herself and that "I'm not worth anything and I don't mean anything to anyone". Continues to have SI with thoughts of jumping from the parking garage. She notes these thoughts are "all day and all night". She feels safe in the hospital "This is the most safest place I've ever been to". She denies any recent self-harm. She is currently prescribed [place], Cogentin, Hydroxyzine, clonidine, abilify po and abilify MORELOS (last injection was 01/01/22). No side effects to any of her other medications except that she gets very dizzy and "my whole gets light inside" after she takes her nighttime medications. The dizziness gets worse when she tries to move around. Psychiatric ROS notable for: denies anxiety;in past experienced difficulty talking/writing/paranoia/romantic delusions; no history of francis; no hx violence; no OCD; no hx eating disorder; no hx self-harm. Physical Exam Vital Signs (Past 24 Hours) Last Vital Signs Temp 36.3 C L 01/09/22 06:57 Pulse 96 H 01/09/22 06:58 Resp 16 01/09/22 06:57 BP 103/70 01/09/22 06:58 Pulse Ox 99 01/06/22 06:00 See admission H&P and DOD summary. Principal Diagnosis Major Depressive Disorder with psychotic features Psychiatric Data See daily stay summary. In short, patient was engaged with the social/therapeut ic milieu of the unit, safety was maintained and the patient was cooperative with care. Medication changes included discontinuation of clonidine due to orthostatic hypotension/dizziness and initiation of escitalopram for depression and they tolerated this well. A support session was held with her outpatient CM and her B advocate who came in to meet with Hope. She found out she will need to transition out of [facility] housing and services given her psychiatric needs and this was upsetting for her but she coped with the news of this transition well and processed CBT and behavioral strategies she can use to deal with the uncertainty and anxiety that this change brings up for her. and safety plan was completed prior to discharge. In the days leading up to discharge her SI became less intensive and intrusive, no longer had thoughts of a plan, she felt better able to manage these thoughts and on the day of discharge she denied any SI. She actively and insightfully participated in safety planning and in discussions about ways to seek support and recognizing warning signs and utilizing coping skills. Reviewed mobile apps that could be used for additional ways to have their safety plan and contacts easily available should thoughts of SI re-emerge in the future. Reviewed importance of seeking emergency care should SI intensify, worsen or should they feel unsafe in the future which they agree to do. On the day of discharge she stated her mood was "very good" and noted her readiness for discharge stating "I feel like I could never be more ready" and remained future-oriented including us ing a new bath shower product she loves, going for walks, playing with her car, reaching out to start training for her new job and engaging in aftercare appointments for psychiatry, therapy and meeting with her top case assembler. Day of Discharge Assessment Today the patient voices readiness for discharge. They note improvement in mood and anxiety. They deny thoughts of harm to self or others. Thoughts are organized and they are clinically improved from admission. There is no evidence of psychosis. They improved in the hospital with support and medication adjustments. They agree to take medications as prescribed and keep follow-up appointments. At the time of the discharge they are deemed to be stable and appropriate for outpatient level of care. They are not deemed to be at imminent risk of harm to self or others. They are aware of emergency and crisis services. Knows to call 911 or go to nearest emergency care center if in a crisis which cannot be handled as an outpatient. Transition of Care Transition Of Care Record: was reviewed with the patient Advance Directives Advance Directives Information Provided: Yes Advance Directives: No Mental Health Advance Directive: No Advance Directives on File: No Living Will: No Power of Hvac Engineer: No Advance Directives Reason:: Declines as Mental Health Visit. Suicide Risk Level Suicide Risk Level: Low (q15 min observation checks) Suicide Risk Level Comments: Acute risk is low given improvement in mood and denial of SI, lack of access to lethal means,plan to avoid substance use,improvement in sleep,hopefulness and improvement in psychosis. Chronic risk is moderate given psychiatric co-morbid diagnoses , periods of impulsivity ,prior attempt, emotional reactivity , prior psychiatric hospitalizations ,poor social support, mood disorder, childhood trauma , but also with protective factors including resiliency, many outpatient services, stable relationships, and new job. Counseled on ways to reduce acute and chronic risk including engaging with outpatient providers, using safety plan if needed, utilizing supports, taking medication, and using coping skills. Modifiable risk factors of SI, psychosis and depression were addressed during hospitalization through development of new coping skills, family meeting, safety planning, and medication adjustments. Risk Factors Assessment : Yes Do You Have Access To A Gun?: No Health Problems: Yes Mental Health Diagnoses: Yes Substance Use Disorders: No Previous Attempt: Yes Previous Psychiatric Hospitalization: Yes Hopelessness: No Protective Factors Assessment Employed: Yes (will be starting new job soon) Stable Relationships: Yes Supportive Family: No Good Rapport with Provider: Yes Discharge Data Lab Results 01/02/22 01/02/22 01/02/22 12:34 12:48 12:48 WBC 11.50 H RBC 4.63 Hgb 14.2 Hct 42.9 MCV 92.7 MCH 30.7 MCHC 33.1 RDW Std Deviation 52.1 H RDW Coeff of Anali 15.4 H Plt Count 415 H MPV 9.5 Immature Gran % (Auto) 0.3 Neut % (Auto) 74.7 Lymph % (Auto) 17.1 [place] % (Auto) 6.7 Eos % (Auto) 1.0 Baso % (Auto) 0.2 Neut # (Auto) 8.59 H Lymph # (Auto) 1.97 [place] # (Auto) 0.77 H Eos # (Auto) 0.12 Baso # (Auto) 0.02 Immature Gran # (Auto) 0.03 H Sodium 139 Potassium 3.8 Chloride 106 Carbon Dioxide 25 Anion Gap 8 BUN 12 Creatinine 0.92 Est Cr Clr Drug Dosing 80.6 Est GFR ( Amer) 103.2 Est GFR (Non-Af Amer) 89.0 BUN/Creatinine Ratio 13.0 Glucose 90 Fasting Glucose Calcium 9.8 Total Bilirubin 0.3 AST 29 ALT 20 Alkaline Phosphatase 81 Total Protein 7.2 Albumin 4.4 Globulin 2.8 Albumin/Globulin Ratio 1.6 Triglycerides Cholesterol LDL Cholesterol, Calc VLDL Cholesterol, Calc HDL Cholesterol Cholesterol/HDL Ratio TSH Salicylates Urine Opiates Screen Neg Ur Methadone, Qual Neg Acetaminophen Urine Barbiturates Neg Ur Phencyclidine (PCP) Neg U Amphetamin/Meth Scrn Neg MDMA (Ecstasy) Screen Neg U Benzodiazepines Scrn Neg Ur Cocaine Metabolite Neg U Marijuana (THC) Screen Neg Ethyl Alcohol mg/dL SARS-CoV-2, RNA, NAAT 01/02/22 01/02/22 01/02/22 12:48 12:48 12:48 WBC RBC Hgb Hct MCV MCH MCHC RDW Std Deviation RDW Coeff of Anali Plt Count MPV Immature Gran % (Auto) Neut % (Auto) Lymph % (Auto) [place] % (Auto) Eos % (Auto) Baso % (Auto) Neut # (Auto) Lymph # (Auto) [place] # (Auto) Eos # (Auto) Baso # (Auto) Immature Gran # (Auto) Sodium Potassium Chloride Carbon Dioxide Anion Gap BUN Creatinine Est Cr Clr Drug Dosing Est GFR ( Amer) Est GFR (Non-Af Amer) BUN/Creatinine Ratio Glucose Fasting Glucose Calcium Total Bilirubin AST ALT Alkaline Phosphatase Total Protein Albumin Globulin Albumin/Globulin Ratio Triglycerides Cholesterol LDL Cholesterol, Calc VLDL Cholesterol, Calc HDL Cholesterol Cholesterol/HDL Ratio TSH 1.428 Salicylates < 3.0 L Urine Opiates Screen Ur Methadone, Qual Acetaminophen < 3 L Urine Barbiturates Ur Phencyclidine (PCP) U Amphetamin/Meth Scrn MDMA (Ecstasy) Screen U Benzodiazepines Scrn Ur Cocaine Metabolite U Marijuana (THC) Screen Ethyl Alcohol mg/dL < 10.0 SARS-CoV-2, RNA, NAAT 01/02/22 01/04/22 14:10 07:52 WBC RBC Hgb Hct MCV MCH MCHC RDW Std Deviation RDW Coeff of Anali Plt Count MPV Immature Gran % (Auto) Neut % (Auto) Lymph % (Auto) [place] % (Auto) Eos % (Auto) Baso % (Auto) Neut # (Auto) Lymph # (Auto) [place] # (Auto) Eos # (Auto) Baso # (Auto) Immature Gran # (Auto) Sodium Potassium Chloride Carbon Dioxide Anion Gap BUN Creatinine Est Cr Clr Drug Dosing Est GFR ( Amer) Est GFR (Non-Af Amer) BUN/Creatinine Ratio Glucose Fasting Glucose 95 Calcium Total Bilirubin AST ALT Alkaline Phosphatase Total Protein Albumin Globulin Albumin/Globulin Ratio Triglycerides 109 Cholesterol 169 LDL Cholesterol, Calc 91 VLDL Cholesterol, Calc 22 HDL Cholesterol 56 Cholesterol/HDL Ratio 3.0 TSH Salicylates Urine Opiates Screen Ur Methadone, Qual Acetaminophen Urine Barbiturates Ur Phencyclidine (PCP) U Amphetamin/Meth Scrn MDMA (Ecstasy) Screen U Benzodiazepines Scrn Ur Cocaine Metabolite U Marijuana (THC) Screen Ethyl Alcohol mg/dL SARS-CoV-2, RNA, NAAT NEGATIVE Hospital Course (1) Major depressive disorder with psychotic features: (2) MDD (major depressive disorder), recurrent episode, moderate: (3) Suicidal thoughts: (4) Acute medial meniscus tear of right knee: (5) Post traumatic stress disorder (PTSD): 01/09/22: Remains stable with no medication side effects. Completed safety plan. Eager for discharge and feels safe and ready. 01/08/22: Continue current medications and tx plan. 01/07/22: Continue current medications and tx plan. 01/06/22: Increase escitalopram to 10mg qd. 01/05/22: Continue with current medications and tx plan. 01/04/22: Continue with escitalopram 5mg qd and other medications and tx plan. 01/03/2022: [facility] on q15 min checks (behavioral with suicide precautions) for safety. The patient will participate in group, recreational, and milieu therapies and will be offered additional individual and family sessions as clinically appropriate. -start escitalopram 5mg qd -discontinue clonidine due to suspected orthostatic hypotension -fasting lipid panel and glucose in the morning Mental Health & Subst Abuse Tx Psychiatrist Name of Psychiatrist: Lewis Randall Psychiatrist's Phone Number: [phone] Date of Appointment with Psychiatrist: 01/16/22 Time of Appointment with Psychiatrist: 11am Psychiatric Appointment Comment: [address] [facility] Therapist Name of Therapist: [facility] Date of Therapist Appointment: 01/10/22 Time of Therapist Appointment: 10am Therapy Appointment Comment: [address] [facility] Founder And President Name of Founder And President: MARGARITO Dunne MHID, FEP cm Phone Number for Founder And President: [phone] Post Discharge Appointments Primary Care Physician Name Of Family Doctor: Mackenzie Mcpherson Primary Care Phone Number: Provider Appointment Comment: schedule as needed Primary Care Release of Information: Obtained, Reviewed and Signed Partial or Psych Rehab Name of Partial or Psych Rehab: [facility] Partial or Psych Rehab Appointment Comment: patient will contact Rice Milling Supervisor Name of Rice Milling Supervisor: Esther Alcantar Rice Milling Supervisor Appointment Comment: patient will contact- home/community Neurologist Name of Neurologist: [facility] Date of Appointment with Neurologist: 01/28/22 Time of Appointment with Neurologist: 10am Neurology Appointment Comment: [id number] Specialist Name of Specialist: [facility]- Dr. Avila Phone Number for Specialist: Date of Appointment with Specialist: 01/24/22 Time of Appointment with Specialist: 8am Specialty Appointment Comment: [address] [facility], [place] [address] Discharge Plan Discharge Items Patient Disposition: Home - Self-Care Reason For Visit: SI, MDD Discharge Diagnosis: Major Depressive Disorder with psychotic features Activity: Resume your previous activity Non-emergency contact: Primary Care Provider, Psychiatrist, Therapist and Orthopedic Shoe Maker Call non-emergency contact if: you have any medication questions and your symptoms worsen Follow-up/Referrals: Melody Mcpherson DO [Primary Care Provider] - Diet: Regular Addtl Attending Provider Instructions: Optional Mobile Apps: -Suicide Safety Plan -Virtual Hope Box SPECIAL CARE INSTRUCTIONS: 1. Follow through with your scheduled aftercare appointments. If unable to keep an appointment, please call to reschedule. 2. Take your medication only as prescribed. Medication should not be changed or stopped without the approval of your doctor. In the event of worsening symptoms or concerns about side effects, contact your doctor immediately. 3. Utilize new healthy coping skills, anger management skills, and stress management skills learned during your hospitalization. Journal feelings and process them with a support person. Identify stressors or situations that may result in relapse, deterioration or inappropriate behaviors and develop a plan to deal with those issues. 4. If your coping skills are ineffective and you are in crisis, contact your outpatient providers for direction. If unable to reach your providers, please call the [facility] CRISIS LINE AT , go to the [facility] walk-in center at [address], [address], [place], or go to the closest Emergency Room. 5. Avoid alcohol and un-prescribed drugs. 6. You have been provided with the Mental Health Advance Directives Pamphlet for your review. 7. Your condition is stable for discharge to outpatient level of care, but recovery is an ongoing process. Ifthoughts to harm yourself or others return, follow the safety plan developed during your stay. Planning for a safe return home includes securing weapons. Our treatment team recommends weaponsbe removed from the home until your outpatient provider reassesses your progress. In rare cases where the items themselvescannot be removed, guns and ammunitionshould be secured separatelyand keys stored by a reliable personoutside of the home. If you were admitted on an involuntary commitment, the police or other legal authorities may be involved in this process. AFTERCARE APPOINTMENTS: * Please call your insurance company prior to your scheduled appointment to confirm your aftercare providers are covered. Take your insurance information to your appointments. WHO TO CALL AND WHEN: Medical Emergencies: For questions or emergencies related to your hospital stay, please contact the Inpatient Behavioral Health Unit at [phone]. A speech assistant is on-call 23/02 for the Behavioral Health Unit for emergencies At any time you feel your situation is an emergency, you may also call 911 immediately. Pending Studies at Discharge: No Stand-Alone Forms: My [facility] Medications and DC Order Prescriptions: New escitalopram oxalate 10 mg Tablet 10 mg PO QAM 30 Days Qty: 30 RF: 0 Continued lithium carbonate 450 mg tablet extended release 450 mg PO BID RF: 0 hydroxyzine HCl 10 mg tablet 10 mg PO BID RF: 0 Abilify Maintena 400 mg suspension,extended rel recon 400 mg IM MONTHLY RF: 0 benztropine 0.5 mg tablet 0.5 mg PO BID 30 Days Qty: 60 RF: 0 mirtazapine 15 mg tablet 15 mg PO HS RF: 0 aripiprazole [Abilify] 10 mg Tablet 10 mg PO HS RF: 0 Discontinued clonidine HCl 0.1 mg tablet 0.1 mg PO HS RF: 0 Discharge Orders: Discharge Order (Routine); Ordered 01/09/22 Ordered By: Millie Coello/Other Patient Handouts: Depression: Tips to Help Yourself Admission Data Admit Date/Time: 01/02/22 16:05 Attending Provider: Millie Sadler Admit Provider: Millie Sadler Primary Care Provider: Melody Mcpherson Other Interventions: Discharge Summary Assessment (RN) Last Done: 01/09/22 10:09 PSY Interdisciplinary Discharge Planning Last Done: 01/09/22 11:16 Coding Level of Care Code 60525 D/C day mgmt > 30 min Diagnoses Major depressive disorder with psychotic features F32.3 MDD (major depressive disorder), recurrent episode, moderate F33.1 Suicidal thoughts R45.851 Acute medial meniscus tear of right knee S83.241A Post traumatic stress disorder (PTSD) F43.10 Time Spent (min) 35
== END 2022-01-09 13:02 | disposition home or self-care (01) | DRG 885 ==
LOC: ED 11:59 → 3S 16:05

== ENCOUNTER 2022-06-02 14:22 | Inpatient (IN) ==
--- NOTE | 2022-06-02 14:47 | Emergency Department Note ---
History of Present Illness General Chief complaint: Mental Health Evaluation Time Seen by Provider: 06/02/22 14:24 Source: patient Mode of arrival: ambulatory Limitations: no limitations History of Present Illness Provider complaint: Mental health evaluation This is a 21-year-old female who presents emergency department due to concern for suicidal ideation. Patient was seen by crisis and we were notified of her a rrival. Patient states her best friend committed suicide the beginning of the year and she has had increasing sadness since that time. She states she did previously try to overdose. She states suicidal thoughts began approximately 3 weeks ago. No homicidal ideation. She states no recent change in medications. She denies any recent illness or change in medications. Home Medications Medication Instructions Recorded Confirmed Type aripiprazole 400 mg intramuscular 400 mg IM MONTHLY 04/07/21 06/02/22 History suspension,extended release (Abilify Maintena) sertraline 50 mg DAILY 02/10/22 06/02/22 History olanzapine 5 mg tablet (Zyprexa) 5 mg PO DAILY 06/02/22 History Allergies Allergy/AdvReac Type Severity Reaction Status Date / Time risperidone Allergy Unknown Verified 05/09/22 09:23 Past Med/Surg History Medical History Acute medial meniscus tear of right knee Depression with suicidal ideation Gastric polyp Grief reaction Major depressive disorder with psychotic features MDD (major depressive disorder) No pertinent past medical history Partial tear of anterior cruciate ligament of knee Post traumatic stress disorder (PTSD) Right ACL tear Suicidal thoughts Surgical History H/O esophagogastroduodenoscopy No pertinent past surgical history No pertinent past surgical history Family History Unknown Adopted Social History Smoking Status: Never smoker Hx Alcohol Use: No Hx Substance Use: No Preferred Language: [place] Communication Ability: Effective Plug Drill Operator Required: No Beliefs That Will Affect Care: None Feels Safe at Home: Yes Assistive Devices: Brace/Splint/Immobilizer and Glasses Review of Systems A total of 10 systems reviewed and were otherwise negative All systems reviewed & are unremarkable except as noted in HPI & below Physical Exam Vital Signs Vital Signs - 24 hr 06/02/22 15:27 06/02/22 15:29 06/02/22 15:29 Temperature 37.2 C 37 C Temperature Source Oral Oral Pulse Rate 87 Pulse Rate [Left Brachial] 87 89 Pulse Rhythm [Left Brachial] Regular Pulse Strength [Left Brachial] Normal Respiratory Rate 19 18 18 Respiratory Effort / Characteristics Non-Labored Respiratory Depth Normal Blood Pressure 112/69 Blood Pressure [Left Arm] 120/76 Blood Pressure Mean 83 Blood Pressure Mean [Left Arm] 90 Pulse Oximetry 95 99 Oxygen Delivery Method Room Air Sepsis Recent Fever Within 48 Hours No Sepsis New/Unexplained Change in Mental Status No Sepsis Action Taken by Nursing No Action Required GENERAL: alert, well appearing, well nourished, no distress, non-toxic EYE EXAM: normal conjunctiva, PERRL and EOM's grossly intact OROPHARYNX: no exudate, no erythema, lips, buccal mucosa, and tongue normal and mucous membranes are moist NECK: supple, no nuchal rigidity, no adenopathy, non-tender LUNGS: Clear to auscultation. Normal chest wall mechanics, no w/r/r HEART: no murmurs, S1 normal and S2 normal ABDOMEN: abdomen soft, non-tender, normo-active bowel sounds, no masses, no rebound or guarding. BACK: Back is symmetrical on inspection and there is no deformity, no midline tenderness, no CVA tenderness. SKIN: no rashes and no bruising UPPER EXTREMITIES: upper extremities are grossly normal. FROM, nml pulses b/l. LOWER EXTREMITIES: No pitting edema. FROM, nml pulses b/l. Brace noted to right lower extremity due to partially torn ACL. Patient states she is awaiting surgery. NEURO EXAM: Normal sensorium, cranial nerves II-XII grossly intact, normal speech, no gross weakness of arms, no gross weakness of legs. Gross sensation intact. Course Administered Medications Enoxaparin Sodium (Enoxaparin Inj 40 Mg/0.4 Ml Syr) 40 mg SQ TODAY@2100 IFEOMA Stop: 07/02/22 20:59 Last Admin: 06/02/22 20:56 Dose: Not Given Documented By: BILLIE Medical Decision Making Differential Diagnosis Differential diagnoses considered include mood disorder, infection, hypoglycemia, electrolyte abnormalities, cardiac sources, intracerebral event, toxicologic, neurologic, as well as others. Medical Records Attestation: I reviewed the patient's medical records. Home Medications Current Medication List: was personally reviewed by me Laboratory Data Attestation: I reviewed the patient's lab results. Result diagrams: 06/02/22 15:20 06/02/22 15:20 Lab Results 06/02/22 06/02/22 06/02/22 Range/Units 14:35 14:35 14:47 WBC (4.8-10.8) K/ul RBC (3.93-5.22) M/uL Hgb (12.0-16.0) g/dl Hct (34.1-44.9) % MCV (80.0-100.0) fL MCH (25.0-34.0) pg MCHC (32.0-36.0) g/dL RDW Std Deviation (36.4-46.3) fL RDW Coeff of Anali (11.5-14.5) % Plt Count (130-400) K/uL MPV (9.4-12.3) fL Immature Gran % (Auto) % Neut % (Auto) % Lymph % (Auto) % [place] % (Auto) % Eos % (Auto) % Baso % (Auto) % Neut # (Auto) (1.4-6.5) K/uL Lymph # (Auto) (1.2-3.4) K/uL [place] # (Auto) (0.24-0.82) K/uL Eos # (Auto) (0-0.50) K/uL Baso # (Auto) (0-0.2) K/uL Immature Gran # (Auto) (0.00-0.02) K/uL Sodium (136-145) mmol/L Potassium (3.5-5.1) mmol/L Chloride (98-107) mmol/L Carbon Dioxide (21-32) mmol/L Anion Gap (3-11) BUN (6-23) mg/dl Creatinine (0.6-1.2) mg/dl Est Cr Clr Drug Dosing Est GFR ( Amer) ml/min Est GFR (Non-Af Amer) ml/min BUN/Creatinine Ratio (10-20) Glucose (70-99(Fasting)) mg/dl Calcium (8.5-10.1) mg/dl Total Bilirubin (0.2-1.0) mg/dl AST (13-39) U/L ALT (7-52) U/L Alkaline Phosphatase (34-104) U/L C-Reactive Protein (0-0.5) mg/dl Total Protein (6.0-8.3) gm/dl Albumin (3.4-5.0) gm/dl Globulin (2.5-4.0) gm/dl Albumin/Globulin Ratio (0.9-2) TSH (0.300-4.500) uIu/ml Free T4 (0.61-1.60) ng/dl Urine Color Yellow Urine Appearance Clear (Clear) Urine pH 5.0 (4.5-7.5) Ur Specific [place] 1.014 (1.000-1.030) Urine Protein Negative (Negative) Urine Glucose (UA) Negative (Negative) Urine Ketones Negative (Negative) Urine Blood Negative (Negative) Urine Nitrite Negative (Negative) Urine Bilirubin Negative (Negative) Urine Urobilinogen Negative (Negative) Ur Leukocyte Esterase Trace H (Negative) Urine WBC (Auto) 1-5 (0-5) /hpf Urine RBC (Auto) 0-4 (0-4) /hpf U Hyaline Cast (Auto) 0 (0-5) /lpf U Epithel Cells (Auto) 20-30 H (0-5) /lpf Urine Bacteria (Auto) Negative (Negative) Urine Test Negative (Negative) Salicylates (3.0-30) mg/dl Urine Opiates Screen Neg (Neg) Ur Methadone, Qual Neg (Neg) Acetaminophen (10-30) ug/ml Urine Barbiturates Neg (Neg) Ur Phencyclidine (PCP) Neg (Neg) U Amphetamin/Meth Scrn Neg (Neg) MDMA (Ecstasy) Screen Neg (Neg) U Benzodiazepines Scrn Neg (Neg) Ur Cocaine Metabolite Neg (Neg) U Marijuana (THC) Screen Neg (Neg) Ethyl Alcohol mg/dL (<10.0) mg/dl SARS-CoV-2, RNA, NAAT (NEGATIVE) 06/02/22 06/02/22 06/02/22 Range/Units 15:20 15:20 15:20 WBC 6.38 (4.8-10.8) K/ul RBC 4.40 (3.93-5.22) M/uL Hgb 13.1 (12.0-16.0) g/dl Hct 38.9 (34.1-44.9) % MCV 88.4 (80.0-100.0) fL MCH 29.8 (25.0-34.0) pg MCHC 33.7 (32.0-36.0) g/dL RDW Std Deviation 43.2 (36.4-46.3) fL RDW Coeff of Anali 13.2 (11.5-14.5) % Plt Count 358 (130-400) K/uL MPV 9.3 L (9.4-12.3) fL Immature Gran % (Auto) 0.3 % Neut % (Auto) 71.5 % Lymph % (Auto) 14.6 % [place] % (Auto) 10.8 % Eos % (Auto) 2.0 % Baso % (Auto) 0.8 % Neut # (Auto) 4.56 (1.4-6.5) K/uL Lymph # (Auto) 0.93 L (1.2-3.4) K/uL [place] # (Auto) 0.69 (0.24-0.82) K/uL Eos # (Auto) 0.13 (0-0.50) K/uL Baso # (Auto) 0.05 (0-0.2) K/uL Immature Gran # (Auto) 0.02 (0.00-0.02) K/uL Sodium 140 (136-145) mmol/L Potassium 3.5 (3.5-5.1) mmol/L Chloride 109 H (98-107) mmol/L Carbon Dioxide 21 (21-32) mmol/L Anion Gap 10 (3-11) BUN 5 L (6-23) mg/dl Creatinine 0.86 (0.6-1.2) mg/dl Est Cr Clr Drug Dosing Not Reportable Est GFR ( Amer) 111.9 ml/min Est GFR (Non-Af Amer) 96.6 ml/min BUN/Creatinine Ratio 5.8 L (10-20) Glucose 82 (70-99(Fasting)) mg/dl Calcium 8.8 (8.5-10.1) mg/dl Total Bilirubin 0.3 (0.2-1.0) mg/dl AST 14 (13-39) U/L ALT 21 (7-52) U/L Alkaline Phosphatase 84 (34-104) U/L C-Reactive Protein (0-0.5) mg/dl Total Protein 7.1 (6.0-8.3) gm/dl Albumin 4.1 (3.4-5.0) gm/dl Globulin 3.0 (2.5-4.0) gm/dl Albumin/Globulin Ratio 1.4 (0.9-2) TSH 0.039 L (0.300-4.500) uIu/ml Free T4 0.71 (0.61-1.60) ng/dl Urine Color Urine Appearance (Clear) Urine pH (4.5-7.5) Ur Specific [place] (1.000-1.030) Urine Protein (Negative) Urine Glucose (UA) (Negative) Urine Ketones (Negative) Urine Blood (Negative) Urine Nitrite (Negative) Urine Bilirubin (Negative) Urine Urobilinogen (Negative) Ur Leukocyte Esterase (Negative) Urine WBC (Auto) (0-5) /hpf Urine RBC (Auto) (0-4) /hpf U Hyaline Cast (Auto) (0-5) /lpf U Epithel Cells (Auto) (0-5) /lpf Urine Bacteria (Auto) (Negative) Urine Test (Negative) Salicylates (3.0-30) mg/dl Urine Opiates Screen (Neg) Ur Methadone, Qual (Neg) Acetaminophen (10-30) ug/ml Urine Barbiturates (Neg) Ur Phencyclidine (PCP) (Neg) U Amphetamin/Meth Scrn (Neg) MDMA (Ecstasy) Screen (Neg) U Benzodiazepines Scrn (Neg) Ur Cocaine Metabolite (Neg) U Marijuana (THC) Screen (Neg) Ethyl Alcohol mg/dL (<10.0) mg/dl SARS-CoV-2, RNA, NAAT (NEGATIVE) 06/02/22 06/02/22 06/02/22 Range/Units 15:20 15:20 15:20 WBC (4.8-10.8) K/ul RBC (3.93-5.22) M/uL Hgb (12.0-16.0) g/dl Hct (34.1-44.9) % MCV (80.0-100.0) fL MCH (25.0-34.0) pg MCHC (32.0-36.0) g/dL RDW Std Deviation (36.4-46.3) fL RDW Coeff of Anali (11.5-14.5) % Plt Count (130-400) K/uL MPV (9.4-12.3) fL Immature Gran % (Auto) % Neut % (Auto) % Lymph % (Auto) % [place] % (Auto) % Eos % (Auto) % Baso % (Auto) % Neut # (Auto) (1.4-6.5) K/uL Lymph # (Auto) (1.2-3.4) K/uL [place] # (Auto) (0.24-0.82) K/uL Eos # (Auto) (0-0.50) K/uL Baso # (Auto) (0-0.2) K/uL Immature Gran # (Auto) (0.00-0.02) K/uL Sodium (136-145) mmol/L Potassium (3.5-5.1) mmol/L Chloride (98-107) mmol/L Carbon Dioxide (21-32) mmol/L Anion Gap (3-11) BUN (6-23) mg/dl Creatinine (0.6-1.2) mg/dl Est Cr Clr Drug Dosing Est GFR ( Amer) ml/min Est GFR (Non-Af Amer) ml/min BUN/Creatinine Ratio (10-20) Glucose (70-99(Fasting)) mg/dl Calcium (8.5-10.1) mg/dl Total Bilirubin (0.2-1.0) mg/dl AST (13-39) U/L ALT (7-52) U/L Alkaline Phosphatase (34-104) U/L C-Reactive Protein 3.22 H (0-0.5) mg/dl Total Protein (6.0-8.3) gm/dl Albumin (3.4-5.0) gm/dl Globulin (2.5-4.0) gm/dl Albumin/Globulin Ratio (0.9-2) TSH (0.300-4.500) uIu/ml Free T4 (0.61-1.60) ng/dl Urine Color Urine Appearance (Clear) Urine pH (4.5-7.5) Ur Specific [place] (1.000-1.030) Urine Protein (Negative) Urine Glucose (UA) (Negative) Urine Ketones (Negative) Urine Blood (Negative) Urine Nitrite (Negative) Urine Bilirubin (Negative) Urine Urobilinogen (Negative) Ur Leukocyte Esterase (Negative) Urine WBC (Auto) (0-5) /hpf Urine RBC (Auto) (0-4) /hpf U Hyaline Cast (Auto) (0-5) /lpf U Epithel Cells (Auto) (0-5) /lpf Urine Bacteria (Auto) (Negative) Urine Test (Negative) Salicylates < 3.0 L (3.0-30) mg/dl Urine Opiates Screen (Neg) Ur Methadone, Qual (Neg) Acetaminophen 3 L (10-30) ug/ml Urine Barbiturates (Neg) Ur Phencyclidine (PCP) (Neg) U Amphetamin/Meth Scrn (Neg) MDMA (Ecstasy) Screen (Neg) U Benzodiazepines Scrn (Neg) Ur Cocaine Metabolite (Neg) U Marijuana (THC) Screen (Neg) Ethyl Alcohol mg/dL < 10.0 (<10.0) mg/dl SARS-CoV-2, RNA, NAAT (NEGATIVE) 06/02/22 06/02/22 Range/Units 16:06 17:12 WBC (4.8-10.8) K/ul RBC (3.93-5.22) M/uL Hgb (12.0-16.0) g/dl Hct (34.1-44.9) % MCV (80.0-100.0) fL MCH (25.0-34.0) pg MCHC (32.0-36.0) g/dL RDW Std Deviation (36.4-46.3) fL RDW Coeff of Anali (11.5-14.5) % Plt Count (130-400) K/uL MPV (9.4-12.3) fL Immature Gran % (Auto) % Neut % (Auto) % Lymph % (Auto) % [place] % (Auto) % Eos % (Auto) % Baso % (Auto) % Neut # (Auto) (1.4-6.5) K/uL Lymph # (Auto) (1.2-3.4) K/uL [place] # (Auto) (0.24-0.82) K/uL Eos # (Auto) (0-0.50) K/uL Baso # (Auto) (0-0.2) K/uL Immature Gran # (Auto) (0.00-0.02) K/uL Sodium (136-145) mmol/L Potassium (3.5-5.1) mmol/L Chloride (98-107) mmol/L Carbon Dioxide (21-32) mmol/L Anion Gap (3-11) BUN (6-23) mg/dl Creatinine (0.6-1.2) mg/dl Est Cr Clr Drug Dosing Est GFR ( Amer) ml/min Est GFR (Non-Af Amer) ml/min BUN/Creatinine Ratio (10-20) Glucose (70-99(Fasting)) mg/dl Calcium (8.5-10.1) mg/dl Total Bilirubin (0.2-1.0) mg/dl AST (13-39) U/L ALT (7-52) U/L Alkaline Phosphatase (34-104) U/L C-Reactive Protein (0-0.5) mg/dl Total Protein (6.0-8.3) gm/dl Albumin (3.4-5.0) gm/dl Globulin (2.5-4.0) gm/dl Albumin/Globulin Ratio (0.9-2) TSH (0.300-4.500) uIu/ml Free T4 (0.61-1.60) ng/dl Urine Color Urine Appearance (Clear) Urine pH (4.5-7.5) Ur Specific [place] (1.000-1.030) Urine Protein (Negative) Urine Glucose (UA) (Negative) Urine Ketones (Negative) Urine Blood (Negative) Urine Nitrite (Negative) Urine Bilirubin (Negative) Urine Urobilinogen (Negative) Ur Leukocyte Esterase (Negative) Urine WBC (Auto) (0-5) /hpf Urine RBC (Auto) (0-4) /hpf U Hyaline Cast (Auto) (0-5) /lpf U Epithel Cells (Auto) (0-5) /lpf Urine Bacteria (Auto) (Negative) Urine Test (Negative) Salicylates (3.0-30) mg/dl Urine Opiates Screen (Neg) Ur Methadone, Qual (Neg) Acetaminophen (10-30) ug/ml Urine Barbiturates (Neg) Ur Phencyclidine (PCP) (Neg) U Amphetamin/Meth Scrn (Neg) MDMA (Ecstasy) Screen (Neg) U Benzodiazepines Scrn (Neg) Ur Cocaine Metabolite (Neg) U Marijuana (THC) Screen (Neg) Ethyl Alcohol mg/dL (<10.0) mg/dl SARS-CoV-2, RNA, NAAT POSITIVE A* POSITIVE A* (NEGATIVE) MDM Narrative This is a 21 yo female here for mental health evaluation and desiring inpatient mental health treatment for her depression and SI. VS stable. Labs sent, UA/UDS performed. Patient found to be covid positive thus necessitating a medical admission and psych consult. Case discussed with hospitalist for admission. Impression & Plan Depression, Suicidal ideation, COVID-19 Discharge Plan Visit Data Chief Complaint: Mental Health Evaluation ED Provider: Julisa Verde Discharge Problem: Depression, Suicidal ideation, COVID-19 Patient Disposition: Admitted As Inpatient Discharge Instructions Interventions: ED Discharge Assessment Last Done: 06/02/22 20:58
[2022-06-02 15:01] LABS: Appearance Urine Clear (Clear); Bacteria Urine Automated Negative (Negative); Bilirubin Urine Negative (Negative); Blood Urine Negative (Negative); Cast Urine Automated 0 /lpf (0-5); Color Urine Yellow; Epithelial Cell Urine Auto 20-30 /lpf (0-5); Glucose Urine UA Negative (Negative); Ketones Urine Negative (Negative); Leukocyte Esterase Urine Trace (Negative); Nitrite Urine Negative (Negative); Protein Urine Negative (Negative); RBC Urine Automated 0-4 /hpf (0-4); Specific Gravity Urine 1.014 (1.000-1.030); Urobilinogen Urine Negative (Negative)
[2022-06-02 15:36] LABS: Amphetamines+Metham, Urine Neg (Neg); Barbiturates, Urine Neg (Neg); Benzodiazepine, Urine Neg (Neg); Cocaine, Urine Neg (Neg); MDMA (Ecstacy), Urine Neg (Neg); Methadone, Urine Neg (Neg); Opiate, Urine Neg (Neg); Phencyclidine, Urine Neg (Neg)
[2022-06-02 15:48] LABS: Basophils # (auto) 0.05 K/uL (0-0.2); Basophils % (auto) 0.8 %; Eosinophils # (auto) 0.13 K/uL (0-0.50); Hematocrit (blood only) 38.9 % (34.1-44.9); Hemoglobin 13.1 g/dl (12.0-16.0); Immature Granulocytes # (auto) 0.02 K/uL (0.00-0.02); Immature Granulocytes % (auto) 0.3 %; Lymphocytes # (auto) 0.93 K/uL (1.2-3.4); Lymphocytes % (auto) 14.6 %; Mean Corpuscular Hemoglobin 29.8 pg (25.0-34.0); Mean Corpuscular Hgb Conc 33.7 g/dL (32.0-36.0); Mean Corpuscular Volume 88.4 fL (80.0-100.0); Mean Platelet Volume 9.3 fL (9.4-12.3); Monocytes # (auto) 0.69 K/uL (0.24-0.82); Monocytes % (auto) 10.8 %; Neutrophils # (auto) 4.56 K/uL (1.4-6.5); Neutrophils % (auto) 71.5 %; Platelet Count 358 K/uL (130-400); RDW Coefficient of Variation 13.2 % (11.5-14.5); RDW Standard Deviation 43.2 fL (36.4-46.3); White Blood Count 6.38 K/ul (4.8-10.8)
[2022-06-02 15:59] LABS: Alanine Aminotransferase 21 U/L (7-52); Albumin Globulin Ratio 1.4 (0.9-2); Albumin Level 4.1 gm/dl (3.4-5.0); Alkaline Phosphatase 84 U/L (34-104); Anion Gap 10 (3-11); Aspartate Aminotransferase 14 U/L (13-39); BUN Creatinine Ratio 5.8 (10-20); Bilirubin,Total 0.3 mg/dl (0.2-1.0); Blood Urea Nitrogen 5 mg/dl (6-23); Calcium 8.8 mg/dl (8.5-10.1); Carbon Dioxide 21 mmol/L (21-32); Chloride 109 mmol/L (98-107); Est GFR (African American) 111.9 ml/min; Est GFR (Non-African American) 96.6 ml/min; Glucose 82 mg/dl (70-99(Fasting)); Potassium 3.5 mmol/L (3.5-5.1); Sodium 140 mmol/L (136-145); Total Protein 7.1 gm/dl (6.0-8.3)
[2022-06-02 16:00] LABS: Acetaminophen 3 ug/ml (10-30); Salicylate < 3.0 mg/dl (3.0-30)
[2022-06-02 16:29] LABS: Thyroid Stimulating Hormone 0.039 uIu/ml (0.300-4.500)
[2022-06-02 16:51] LABS: Pregnancy Test, Urine Negative (Negative)
[2022-06-02 17:08] LABS: T4 Free Thyroxine 0.71 ng/dl (0.61-1.60)
--- NOTE | 2022-06-02 17:58 | History & Physical Report ---
Date of Service June 02, 2022 Assessment & Plan (1) COVID-19: Plan: -Admit to med/surge -Patient is afebrile, hemodynamically stable, and stable on RA -Has been vaccinated and received 2 boosters -Has some chest congestion, will get Chest xray now -Monitor for hypoxia -PRN tyleno, albuterol, and incentive spirometry ordered (2) Suicidal ideation: Plan: -Suicide precautions ordered -Will consult psychiatry -Continue Zyprexa and sertraline for now (3) Post traumatic stress disorder (PTSD): Plan: -See suicidal ideations (4) MDD (major depressive disorder), recurrent episode, moderate: Plan: -See suicidal ideations Plan The patient was discussed with Dr. Fishman at the time of the admisison History of Present Illness Chief Complaint: Suicidal ideations Primary Care Provider: Melody Mcpherson DO [place] is a 21 year old female with a PMH significant for PTSD, depression, history of cardiac Murmur and shortened LA interval who presented to the [facility] ED on 06/02/22 with a chief complaint of suicidal ideations. In the Ed the patient was found to be afebrile, hemodynamically stable, and stable on RA. Labs were remarkable for TSH of 0.039 with free T4 of 0.71, negative urine tox screen and alcohol level, but the patient was Covid +. B ecause of this she cannot be transferred to an inpatient psychiatric facility at this time. At the time of the exam the patient was resting comfortably in bed in no acute distress. She states that for the past 2 weeks she has been having suicidal ideations. Today it was so bad that she had plans to go home and overdose on her Zyprexa and Sertraline but decided to call the crisis line instead. She states that her best friend committed suicide in August and she has been having a very hard time since. When asked, she states that she has been vaccinated and received 2 covid boosters with her last being approximately 6 months ago. She stats that she has some slight congestion in her chest otherwise is asymptomatic. Allergies Allergy/AdvReac Type Severity Reaction Status Date / Time risperidone Allergy Unknown Verified 05/09/22 09:23 Home Medications Medication Instructions Recorded Confirmed Type aripiprazole 400 mg intramuscular 400 mg IM MONTHLY 04/07/21 06/02/22 History suspension,extended release (Abilify Maintena) sertraline 50 mg DAILY 02/10/22 06/02/22 History olanzapine 5 mg tablet (Zyprexa) 5 mg PO DAILY 06/02/22 History Past Med/Surg History Medical History Acute medial meniscus tear of right knee Depression with suicidal ideation Gastric polyp Grief reaction Major depressive disorder with psychotic features MDD (major depressive disorder) No pertinent past medical history Partial tear of anterior cruciate ligament of knee Post traumatic stress disorder (PTSD) Right ACL tear Suicidal thoughts Surgical History H/O esophagogastroduodenoscopy No pertinent past surgical history No pertinent past surgical history Family History Unknown Adopted Social History Smoking Status: Never smoker Hx Alcohol Use: No Hx Substance Use: No Preferred Language: [place] Communication Ability: Effective Grab Jack Man Required: No Beliefs That Will Affect Care: None Feels Safe at Home: Yes Assistive Devices: Brace/Splint/Immobilizer and Glasses Review of Systems Review of Systems: Denies current fever, chills, headache, changes in vision, hearing, taste, and smell, chest pain, SOB, cough, abdominal pain, nausea, vomiting, diarrhea, hematemesis, melena, dysuria, hematuria, and recent falls. All systems have been reviewed and are otherwise negative. Physical Exam Physical Exam: Physical Exam: General: In no acute distress, stated age, well-nourished, good hygiene HEENT: Normocephalic, atraumatic, no scleral icterus, pupils around round, symmetrical, and reactive to light, moist mucus membranes, trachea midline, no thyromegaly Chest/Pulm: No respiratory distress, symmetrical chest expansion, clear breath sounds throughout Cardiac: RRR, systolic murmur noted Abdomen: Negative for ascites and bruising, normoactive bowel sounds, soft, non-tender to palpation throughout Musculoskeletal: Symmetrical and without signs of acute trauma, upper and lower extremities with full ROM, no atrophy, spasticity, or flaccidity Extremities: Radial, dorsalis pedis, and posterior tibial pulses are intact and symmetrical, no edema noted in the BL LE's Skin: Warm, dry, no rashes , lesions, or scars noted Neuro: Alert and oriented to person, place, month, year, and president, no focal defects, CN II-XII tested and intact, finger to nose test negative, no tremors noted Psych: No acute distress, calm and cooperative during the exam Results & Data Results & Data ([facility]) Vital Signs (Past 12 Hours) Vital Signs Temp Pulse Pulse Resp BP BP Pulse Ox 06/02/22 15:29 89 18 06/02/22 15:29 37 C 87 18 112/69 99 06/02/22 15:27 37.2 C 87 19 120/76 95 O2 Del Method 06/02/22 15:29 06/02/22 15:29 06/02/22 15:27 Room Air Laboratory Results Abnormal lab results 06/02/22 06/02/22 06/02/22 Range/Units 14:35 15:20 15:20 MPV 9.3 L (9.4-12.3) fL Lymph # (Auto) 0.93 L (1.2-3.4) K/uL Chloride 109 H (98-107) mmol/L BUN 5 L (6-23) mg/dl BUN/Creatinine Ratio 5.8 L (10-20) TSH (0.300-4.500) uIu/ml Ur Leukocyte Esterase Trace H (Negative) U Epithel Cells (Auto) 20-30 H (0-5) /lpf Salicylates (3.0-30) mg/dl Acetaminophen (10-30) ug/ml SARS-CoV-2, RNA, NAAT (NEGATIVE) 06/02/22 06/02/22 06/02/22 Range/Units 15:20 15:20 16:06 MPV (9.4-12.3) fL Lymph # (Auto) (1.2-3.4) K/uL Chloride (98-107) mmol/L BUN (6-23) mg/dl BUN/Creatinine Ratio (10-20) TSH 0.039 L (0.300-4.500) uIu/ml Ur Leukocyte Esterase (Negative) U Epithel Cells (Auto) (0-5) /lpf Salicylates < 3.0 L (3.0-30) mg/dl Acetaminophen 3 L (10-30) ug/ml SARS-CoV-2, RNA, NAAT POSITIVE A* (NEGATIVE) 06/02/22 Range/Units 17:12 MPV (9.4-12.3) fL Lymph # (Auto) (1.2-3.4) K/uL Chloride (98-107) mmol/L BUN (6-23) mg/dl BUN/Creatinine Ratio (10-20) TSH (0.300-4.500) uIu/ml Ur Leukocyte Esterase (Negative) U Epithel Cells (Auto) (0-5) /lpf Salicylates (3.0-30) mg/dl Acetaminophen (10-30) ug/ml SARS-CoV-2, RNA, NAAT POSITIVE A* (NEGATIVE) ECG Additional Comments: No ECG available at the time of the admission, will order one now Code Status & VTE Plan Code Status FUll code VTE Prophylaxis Plan VTE Prophylaxis will be ordered: Yes Supervising Physician Co-Signing Physician Notes Patient seen and examined, chart reviewed, case discussed with Eligio Petersen PA-C and I agree with the assessment and plan as above except as otherwise noted Labs and images reviewed Was a 21-year-old female with history of PTSD and depression who presented for suicidal ideation but he was found to be COVID-positive limiting ability to transfer to [facility]. From a COVID standpoint she has had no distress with no shortness of breath and satting normally on room air. Mild congestion, otherwise asymptomatic. She has had suicidal ideations for 2 weeks with plans to overdose on her antidepressant medication called crisis and was brought to the ER. Seen at bedside, endorses sinus congestion with no other symptoms. No shortness of breath, difficulty breathing, lightheadedness, chest pain, chest pressure, leg swelling. Does endorse suicidal ideation, and notes a close friend first recently committed suicide which has been challenging for her emotionally. Does feel safe reaching out to medical staff for worsening thoughts. Lungs are clear, heart rate is regular, skin is warm and dry, speech is fluent with normal volume and prosody. COVID-positive Some congestion, otherwise asymptomatic. Vaccinated. Mild sinus congestion x1 day CXR without acute findings or effusion No hypoxia, remdesivir/steroids not indicated at this time Renal function normal, no transaminitis CRP pending Supportive care, COVID DVT prophylaxis with Lovenox Suicidal ideation Psychiatry consulted With plans to overdose at home on her antidepressants Continue Zyprexa 5 mg daily, sertraline 50 mg daily Patient also on Abilify IM monthly Appreciate behavioral health recommendations One-to-one, suicide precautions Agree with management above PG Care Time/CCT Total # of Minutes Spent Total Time Spent with Patient: Total time spent is greater than 50% in coordination of care (as documented) at patient's floor/unit and/or counseling patient: [place] [address] Initial Inpt Care Lvl 2 Patient Type Established Medical Decision Making Moderate Complexity Diagnoses COVID-19 U07.1 Suicidal ideation R45.851 Post traumatic stress disorder (PTSD) F43.10 MDD (major depressive disorder), recurrent episode, moderate F33.1
[2022-06-02] MEDS ORDERED: ALBUTEROL 0.5% NEB SOLN 2.5 MG/0.5 ML VIAL NEB PRN (18:15)
--- NOTE | 2022-06-02 18:37 | XRay Report ---
XR chest 1V portable CLINICAL HISTORY: Covid + TECHNIQUE: Single frontal radiograph of the chest was obtained. Comparison: None available at the time of this dictation. FINDINGS: No lines and tubes are seen. The cardiomediastinal silhouette is normal. The lungs are clear. No evid ence of pleural effusion or pneumothorax. IMPRESSION: No acute chest disease. ACT 112: Negative or not required by law. Electronically signed by: Adin Steel M.D. 06/02/2022 6:36 PM
[2022-06-02] MEDS ORDERED: ENOXAPARIN 0.5 MG/KG SQ SCH (18:45)
[2022-06-02] MEDS: ENOXAPARIN INJ 40 MG/0.4 ML SYR SQ SCH (20:56)
[2022-06-02] MEDS ORDERED: ACETAMINOPHEN 325 MG TAB PO PRN (20:59)
[2022-06-03] MEDS ORDERED: OLANZAPINE 2.5 MG TAB PO SCH (09:00)
[2022-06-03] MEDS ORDERED: SERTRALINE HCL 50 MG TABLET PO SCH (09:00)
[2022-06-03] MEDS ORDERED: OLANZapine 5 MG TABLET PO SCH ×2 (09:00→21:00)
--- NOTE | 2022-06-03 11:08 | Electrocardiogram Report ---
Test Reason : Blood Pressure : / mmHG Vent. Rate : 093 BPM Atrial Rate : 093 BPM P-R Int : 110 ms QRS Dur : 078 ms QT Int : 368 ms P-R-T Axes : 044 048 034 degrees QTc Int : 457 ms Sinus rhythm Otherwise normal ECG When compared with ECG of 07-APR-2021 09:43, No significant change was found Confirmed by Vlad Tate ([id number]) on 06/03/2022 11:08:38 AM Referred By: REFERRED SELF Confirmed By:Sohail Tate
--- NOTE | 2022-06-03 14:42 | Hospitalist Progress Note ---
Date of Service June 03, 2022 Assessment & Plan (1) COVID-19: Plan: -Admit to med/surge -Patient is afebrile, hemodynamically stable, and stable on RA -Has been vaccinated and received 2 boosters -Chest x-ray with no acute chest disease -Monitor for hypoxia -PRN tyleno, albuterol, and incentive spirometry ordered Patient is medically cleared for discharge however unfortunately cannot be taken by any psychiatry facility due to her being COVID-positive therefore she remained in inpatient under medicine per current protocol. (2) Suicidal ideation: Plan: -Suicide precautions ordered -Appreciate psychiatry consult -will defer changing medications to psychiatry (3) Post traumatic stress disorder (PTSD): Plan: -See suicidal ideations (4) MDD (major depressive disorder), recurrent episode, moderate: Plan: -See suicidal ideations (5) Low TSH level: Plan: Patient is not on any thyroid medications. Free T4 within normal limits. This represents subclinical hypothyroidism. Patient has no risk factors for complications of subclinical hypothyroidism. Recommend repeating TSH with free T4 in 4 to 6 weeks when she is recovered from COVID-19. Plan VTE prophylaxis -low risk Diet -regular safe tray [facility] by or admitted to [facility]ry Admission and Anticipated Discharge Date Admission Date: June 02, 2022 Subjective Patient has symptoms of COVID starting a few days before admission with nasal congestion, cough, diarrhea, loss of smell. She denies any shortness of breath, chest pain, loss of taste. She has no significant risk factors of severe disease other than her BMI of 38.6. She is vaccinated and boosted as of a year ago. Review of Systems Review of Systems: All systems reviewed & are unremarkable except as noted in Subjective Physical Exam Constitutional: WD/WN, vitals as above ENMT: external ear and nose normal, oropharynx normal Respiratory: normal respiratory effort, lungs clear to auscultation Cardiovascular: RRR, no murmur, no edema Gastrointestinal (Abdomen): normal bowel sounds, soft, nontender, no hepatosplenomegaly Musculoskeletal: no cyanosis or clubbing, extremities motor strength 5/5 Skin: no rashes, warm and dry Neurologic: moves all extremities and awake; not confused Psychiatric: A+Ox3, euthymic affect Results & Data Results & Data ([facility]) Vital Signs (Past 12 Hours) Vital Signs Temp Pulse Pulse Resp BP Pulse Ox O2 Del Method 06/03/22 13:50 Room Air 06/03/22 13:44 36.9 C 112 H 16 114/72 98 Room Air 06/03/22 04:07 Room Air 06/03/22 04:07 36.9 C 97 H 18 133/75 98 Room Air PG Care Time/CCT Total # of Minutes Spent Total Time Spent with Patient: Total time spent is greater than 50% in coordination of care (as documented) at patient's floor/unit and/or counseling patient: Coding Level of Care Code 01795 Subseq Hosp Care Lvl 1 Diagnoses COVID-19 U07.1 Suicidal ideation R45.851 Post traumatic stress disorder (PTSD) F43.10 MDD (major depressive disorder), recurrent episode, moderate F33.1 Low TSH level R79.89
--- NOTE | 2022-06-03 14:59 | Psychiatric Consultation ---
Date of Consultation June 03, 2022 Impression / Recommendations Impression 21 yo woman with history of significant trauma, MDD with psychotic features and PTSD admitted medically for COVID+ status after presenting with worsening depression and SI with plan of overdosing. Today reports some improvement in mood and denies SI. Will clarify outpatient medications, may consider re- initiation of sertraline if confirmed that this was discontinued in March. Has extensive outpatient supports. If remains stable can consider discharge in coming days. Acute risk of harm to self is low given denial of SI but given intense thoughts yesterday requires ongoing monitoring to ensure stabilization and safety via medical admission due to COVID+ status. (1) Depression: (2) Post traumatic stress disorder (PTSD): (3) Adjustment disorder with depressed mood: Plan -Reviewed with Dr. Peralta, not felt to need 1-on-1 as now denying SI and able to safety contract to alert nurses should SI re-occur or she feel unsafe -Adjust medications to zyprexa 5mg qhs and hold sertraline until current medications confirmed as differing reports from [facility] versus medical team's med rec Risk Factors Assessment Do You Have Access To A Gun?: No Protective Factors Assessment Employed: No Telehealth Telehealth Options: Telephone only For the duration of the visit, provider was performing the assessment from: The same facility as the patient After establishing a telemedicine visit, patient was: Patient was verified with two unique identifiers, Patient/authorized rep acknowledged consent and understanding and Gave permission to continue telehealth session Total Time Spent (minutes): 30 Psych History Identifying Data Liberty is a 21 yo woman who lives alone in [place] admitted medically due to being COVID+ after presenting to the ED with SI with plan of overdosing on her medication. Psychiatry consulted for recommendations. Chief Complaint "I've been feeling pretty good mood-salguero today as now my thoughts are focused on having COVID". History of Present Illness Liberty is well known to me from her prior inpatient psychiatric admissions at [facility] in Sep 2021 and January 2022. She presented to the ED yesterday afternoon at recommendation of Crisis after reporting an increase in SI with plan of overdosing on her medication in context of recent stressors including thinking more about the of her friend (he in Aug 2021 from suicide) and feeling nervous about her upcoming ACL surgery which is planned for the end of June. She has been having SI for two weeks but it increased yesterday to point of thinking of taking her medications to . She was hospitalized at [facility] in March and since then has been on zyprexa 5 mg qhs and Abilify 400mg MORELOS, last injection ~ 3weeks ago. She has been eating well but decreased sleep. Has psychiatry with Nona Randall at [place], therapy with Juan at [facility], CM with KARSTEN with [facility], psych rehab twice weekly and [facility] weekly. She notes improvement in SI today denying any SI which she attributes to being now focused on COVID and thinking of other things. She notes "this is a little bump in the road" but remains hopeful and future-focused. Agrees to alert nursing if SI re-emerges and feels safe currently. Past Psychiatric History Current Psychiatric Diagnosis: Bipolar disorder Outpatient Services: see HPI-extensive Previous Psych Admissions: see HPI Do You Have Access To A Gun?: No History of Previous Suicide Attempt: Yes Past Medication Trials: multiple most recently Li and sertraline stopped during admission to [facility] in March Allergies Allergy/AdvReac Type Severity Reaction Status Date / Time risperidone Allergy Unknown Verified 05/09/22 09:23 Home Medications Medication Instructions Recorded Confirmed Type aripiprazole 400 mg intramuscular 400 mg IM MONTHLY 04/07/21 06/02/22 History suspension,extended release (Abilify Maintena) escitalopram oxalate 20 mg tablet 20 mg 06/03/22 History lamotrigine 25 mg tablet 25 mg 06/03/22 History naltrexone 50 mg tablet 50 mg 06/03/22 History olanzapine 7.5 mg tablet 7.5 mg 06/03/22 History topiramate 25 mg tablet 25 mg 06/03/22 History Personal History Living Arrangements: Apartment Highest Grade Completed: High School Graduate Employment Status: Unemployed Beliefs That Will Affect Care: None Patient History Medical History Acute medial meniscus tear of right knee Depression with suicidal ideation Gastric polyp Grief reaction Major depressive disorder with psychotic features MDD (major depressive disorder) No pertinent past medical history Partial tear of anterior cruciate ligament of knee Post traumatic stress disorder (PTSD) Right ACL tear Suicidal thoughts Surgical History H/O esophagogastroduodenoscopy No pertinent past surgical history No pertinent past surgical history Family History Unknown Adopted Social History Smoking Status: Never smoker Second Hand Exposure: No; Hx Alcohol Use: No Hx Substance Use: No Preferred Language: Turkish Communication Ability: Effective Washtub Worker Required: No Beliefs That Will Affect Care: None Current Living Situation: Alone Feels Safe at Home: Yes Assistive Devices: None Physical Exam Psychiatric: Orientation: alert and oriented x 3 Speech: normal rate/rhythm/volume of speech Mood: + depressed mood Thought Process: goal directed thought process Thought Content: reality based without delusions Suicidal Thoughts: denies suicidal thoughts, denies suicidal plan and denies suicidal intent Homicidal Thoughts: denies homicidal thoughts Hallucinations: no auditory hallucinations and no visual hallucinations In sight: + limited insight Judgement: + limited judgement Vital Signs (Past 24 Hours): Last Vital Signs Temp 36.9 C 06/03/22 13:44 Pulse 112 H 06/03/22 13:44 Resp 16 06/03/22 13:44 BP 114/72 06/03/22 13:44 Pulse Ox 98 06/03/22 13:44 O2 Del Method 06/03/22 13:50 Review of Systems All systems reviewed & are unremarkable except as noted in HPI & below (cough) Results & Data ([facility]) Medications Administered Enoxaparin Sodium (Enoxaparin Inj 40 Mg/0.4 Ml Syr) 40 mg SQ TODAY@2100 IFEOMA Stop: 07/02/22 20:59 Last Admin: 06/02/22 20:56 Dose: Not Given Documented By: BILLIE Olanzapine (Olanzapine 2.5 Mg Tab) 7.5 mg PO QAM IFEOMA Stop: 07/03/22 08:59 Last Admin: 06/03/22 10:08 Dose: 7.5 mg Documented By: WENDY Sertraline HCl (Sertraline Hcl 50 Mg Tablet) 50 mg PO DAILY IFEOMA Stop: 07/03/22 08:59 Last Admin: 06/03/22 09:41 Dose: 50 mg Documented By: WENDY Coding Level of Care Code 63837 Inpt Consult Level 3 Diagnoses Depression F32.A Post traumatic stress disorder (PTSD) F43.10 Adjustment disorder with depressed mood F43.21
[2022-06-03] MEDS: ENOXAPARIN INJ 40 MG/0.4 ML SYR SQ SCH (21:46)
--- NOTE | 2022-06-04 15:02 | Psychiatric Progress Note ---
Date of Service June 04, 2022 Impression / Recommendations Impression 21 yo woman with history of significant trauma, MDD with psychotic features and PTSD admitted medically for COVID+ status after presenting with worsening depression and SI with plan of overdosing. Today reports some improvement in mood and denies SI. Will clarify outpatient medications, may consider re- initiation of sertraline if confirmed that this was discontinued in March. Has extensive outpatient supports. If remains stable can consider discharge in coming days. Acute risk of harm to self is low given denial of SI but given intense thoughts yesterday requires ongoing monitoring to ensure stabilization and safety via medical admission due to COVID+ status. 06/04/22: Mood continues to improve, no longer endorsing depression, affect bright on interaction in-person with psych liason and no further suicidal ideation and future-oriented. Acute risk of harm to self is low given denial of SI, strong outpatient support, future-oriented and no access to lethal means. No longer in need of inpatient treatment as she desires discharge and doesn't meet involuntary criteria/302 as denying SI, HI, no evidence of francis nor psychosis nor inability to care for self. [place] to be safe for discharge from psychiatric standpoint. Medications reviewed and adjustments made to current inpatient medications ordered. She completed safety plan and reviewed this with psych liason. (1) Depression: (2) Post traumatic stress disorder (PTSD): (3) Adjustment disorder with depressed mood: Plan -Safe for discharge from psychiatric standpoint -No longer requires suicide risk/safety precautions. -Outpatient follow-up appointments confirmed by psych liason -Safety planning completed -Continue psychiatric medications as ordered in outpatient setting, she knows she needs to attend upcoming appointment for Renetta MORELOS. Risk Factors Assessment Do You Have Access To A Gun?: No Protective Factors Assessment Employed: No Interval History Identifying Information Hope is a 21 yo woman who lives alone in [place] admitted medically due to being COVID+ after presenting to the ED with SI with plan of overdosing on her medication. Psychiatry consulted for recommendations. Chief Complaint "I'm doing good, I'm ready to go home". Review of Systems Notes reports stable sleep and appetite Telehealth Telehealth Options: Telephone only For the duration of the visit, provider was performing the assessment from: The same facility as the patient After establishing a telemedicine visit, patient was: Patient was verified with two unique identifiers, Patient/authorized rep acknowledged consent and understanding and Gave permission to continue telehealth session Total Time Spent (minutes): 15 Subjective Subjective Patient was seen & assessed and interval progress reviewed with treatment team nursing and social work via interdisciplinary psychiatric standard of care. She reports her mood is "good" and denies any SI within the last 24 hours. She feels these have improved because "I've realized the positives in life". She denies any symptoms from COVID. Re-reviewed her medications with her: she confirms only taking zyprexa 7.5mg qhs, topimax 25mg qd for headaches, naltrexone 50mg qd for "my bipolar". She denies taking lamictal or sertraline or lexapro recently. Re viewed her outpatient appointments that are upcoming at [facility]. She's been talking to her outpatient CM. She is future-oriented about her surgery later this month, seeing her boyfriend, and attending follow-up appointments. Physical Exam Psychiatric Orientation: alert and oriented x 3 Speech: normal rate/rhythm/volume of speech Mood: no depressed mood and no anxious mood Thought Process: goal directed thought process Thought Content: reality based without delusions Suicidal Thoughts: denies suicidal thoughts Homicidal Thoughts: denies homicidal thoughts Hallucinations: no auditory hallucinations and no visual hallucinations Insight: + limited insight Judgement: + fair judgement Vital Signs (Past 24 Hours) Last Vital Signs Temp 36.7 C 06/04/22 07:15 Pulse 94 H 06/04/22 07:15 Resp 18 06/04/22 07:15 BP 101/72 06/04/22 07:15 Pulse Ox 99 06/04/22 07:15 O2 Del Method 06/04/22 07:15 Results & Data ([facility]) Current Inpatient Medications Current Inpatient Medications: Current Inpatient Medications Acetaminophen (Acetaminophen 325 Mg Tab) 650 mg PO Q4H PRN PRN Reason: Pain (1,2,3) Or Fever Stop: 07/02/22 20:58 Albuterol (Albuterol 0.5% Neb Soln 2.5 Mg/0.5 Ml Vial) 2.5 mg NEB Q6R PRN; Protocol PRN Reason: Wheezing Stop: 07/02/22 18:59 Enoxaparin Sodium (Enoxaparin Inj 40 Mg/0.4 Ml Syr) 40 mg SQ TODAY@2100 IFEOMA Stop: 07/02/22 20:59 Last Admin: 06/03/22 21:46 Dose: 40 mg Olanzapine (Olanzapine 5 Mg Tablet) 5 mg PO HS IFEOMA Stop: 07/03/22 20:59 Last Admin: 06/03/22 21:45 Dose: 5 mg Mental Health & Subst Abuse Tx Therapist Name of Therapist: Juan waite [facility] [employer]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 Melody Mcpherson
--- NOTE | 2022-06-04 19:16 | Hospitalist Progress Note ---
Date of Service June 04, 2022 Assessment & Plan (1) COVID-19: Plan: -Patient is afebrile, hemodynamically stable, and stable on RA -Has been vaccinated and received 2 boosters -Chest x-ray with no acute chest disease -Monitor for hypoxia -PRN tyleno, albuterol, and incentive spirometry ordered Patient is medically cleared for discharge however unfortunately cannot be taken by any psychiatry facility due to her being COVID-positive therefore she remained in inpatient under medicine per current protocol. (2) Suicidal ideation: Plan: -Suicide precautions ordered -Appreciate psychiatry consult -will defer changing medications to psychiatry (3) Post traumatic stress disorder (PTSD): Plan: -See suicidal ideations (4) MDD (major depressive disorder), recurrent episode, moderate: Plan: -See suicidal ideations (5) Low TSH level: Plan: Patient is not on any thyroid medications. Free T4 within normal limits. This represents subclinical hypothyroidism. Patient has no risk factors for complications of subclinical hypothyroidism. Recommend repeating TSH with free T4 in 4 to 6 weeks when she is recovered from COVID-19. Plan VTE prophylaxis -low risk Diet -regular safe tray Disposition -continued admission on [facility] until cleared by or admitted to psychiatry Admission and Anticipated Discharge Date Admission Date: June 02, 2022 Supervising Physician Co-Signing Physician Notes Subjective Patient has symptoms of COVID starting a few days before admission with nasal congestion, cough, diarrhea, loss of smell. She denies any shortness of breath, chest pain, loss of taste. slight improvement in sob Physical Exam Physical Exam: Head and ENT nasal congestion Cardiovascular S1-S2 heard normally Lungs bilateral air entry slightly decreased at bases Abdomen soft Extremity no edema Results & Data Results & Data ([facility]) Vital Signs (Past 12 Hours) Vital Signs Temp Pulse Resp BP Pulse Ox O2 Del Method 06/04/22 17:50 37.0 C 89 16 110/78 99 Room Air 06/04/22 07:15 36.7 C 94 H 18 101/72 99 Room Air PG Care Time/CCT Total # of Minutes Spent Total Time Spent with Patient: Total time spent is greater than 50% in coordination of care (as documented) at patient's floor/unit and/or counseling patient: Coding Level of Care Code 39345 Subseq Hosp Care Lvl 1 Diagnoses COVID-19 U07.1 Suicidal ideation R45.851 Post traumatic stress disorder (PTSD) F43.10 MDD (major depressive disorder), recurrent episode, moderate F33.1 Low TSH level R79.89
[2022-06-04] MEDS ORDERED: OLANZAPINE 2.5 MG TAB PO SCH (21:00)
[2022-06-04] MEDS: ENOXAPARIN INJ 40 MG/0.4 ML SYR SQ SCH (21:22)
[2022-06-05 07:07] LABS: Hematocrit (blood only) 40.8 % (34.1-44.9); Hemoglobin 13.7 g/dl (12.0-16.0); Mean Corpuscular Hemoglobin 29.9 pg (25.0-34.0); Mean Corpuscular Hgb Conc 33.6 g/dL (32.0-36.0); Mean Corpuscular Volume 89.1 fL (80.0-100.0); Platelet Count 310 K/uL (130-400); RDW Coefficient of Variation 13.2 % (11.5-14.5); RDW Standard Deviation 43.5 fL (36.4-46.3); Red Blood Count 4.58 M/uL (3.93-5.22); White Blood Count 5.27 K/ul (4.8-10.8)
[2022-06-05 07:35] LABS: BUN Creatinine Ratio 15.9 (10-20); Calcium 9.2 mg/dl (8.5-10.1); Creatinine Clr Calc Pharmacy 118.2 ml/min; Est GFR (African American) 144.2 ml/min; Est GFR (Non-African American) 124.4 ml/min; Potassium 4.2 mmol/L (3.5-5.1)
[2022-06-05] MEDS ORDERED: TOPIRAMATE 25 MG TAB PO SCH (09:00)
[2022-06-05] MEDS ORDERED: NALTREXONE HCL 50 MG TAB PO SCH (09:00)
--- NOTE | 2022-06-05 21:06 | Discharge Summary ---
Date of Service June 05, 2022 Admission HPI Per Admitting Provider Liberty is a 21 year old female with a PMH significant for PTSD, depression, history of cardiac Murmur and shortened CA interval who presented to the [facility] ED on 06/02/22 with a chief complaint of suicidal ideations. In the Ed the patient was found to be afebrile, hemodynamically stable, and stable on RA. Labs were remarkable for TSH of 0.039 with free T4 of 0.71, negative urine tox screen and alcohol level, but the patient was Covid +. Because of this she cannot be transferred to an inpatient psychiatric facility at this time. At the time of the exam the patient was resting comfortably in bed in no acute distress. She states that for the past 2 weeks she has been having suicidal ideations. Today it was so bad that she had plans to go home and overdose on her Zyprexa and Sertraline but decided to call the crisis line instead. She states that her best friend committed suicide in August and she has been having a very hard time since. When asked, she states that she has been vaccinated and received 2 covid boosters with her last being approximately 6 months ago. She stats that she has some slight congestion in her chest otherwise is asymptomatic. Principal Diagnosis Suicidal ideation and COVID-19 infection Discharge Exam Head and ENT nasal congestion Cardiovascular S1-S2 heard normally Lungs bilateral air entry slightly decreased at bases Abdomen soft Extremity no edema Discharge Data Allergies Allergy/AdvReac Type Severity Reaction Status Date / Time risperidone Allergy Unknown Verified 05/09/22 09:23 Consultations 06/02/22 18:08 ED Decision to Admit Stat 06/02/22 18:18 Consult Psychiatry Routine Hospital Course (1) COVID-19: -Patient is afebrile, hemodynamically stable, and stable on RA -Has been vaccinated and received 2 boosters -Chest x-ray with no acute chest disease -Monitor for hypoxia -PRN tyleno, albuterol, and incentive spirometry ordered Patient is medically cleared for discharge however unfortunately cannot be taken by any psychiatry facility due to her being COVID-positive therefore she remained in inpatient under medicine per current protocol. (2) Suicidal ideation: -Suicide precautions ordered -Appreciate psychiatry consult -will defer changing medications to psychiatry Patient seen by psychiatry and deemed to be safe to be discharged with follow-up with counseling and psychiatry (3) Post traumatic stress disorder (PTSD): -See suicidal ideations (4) MDD (major depressive disorder), recurrent episode, moderate: -See suicidal ideations (5) Low TSH level: Patient is not on any thyroid medications. Free T4 within normal limits. This represents subclinical hypothyroidism. Patient has no risk factors for complications of subclinical hypothyroidism. Recommend repeating TSH with free T4 in 4 to 6 weeks when she is recovered from COVID-19. Plan VTE prophylaxis -low risk Diet -regular safe tray Disposition -continued admission on [facility] until cleared by or admitted to psychiatry Total Time Total Time Spent Total Time Spent (In Minutes): 25 minutes Discharge Plan Discharge Items Patient Disposition: Home - Self-Care Reason For Visit: SUICIDAL IDEATIONS Discharge Diagnosis: COVID and depression disorder Activity: Resume your previous activity Lifting: Gradually increase as tolerated Bathing: No limitations Non-emergency contact: Primary Care Provider and Therapist Call non-emergency contact if: your symptoms worsen Follow-up/Referrals: [facility] [Other] - 06/18/22 2:40 pm (Abilify injection at 2:40PM then therapy at 3:00PM) [facility] - Psychiatry [Other] - 07/01/22 10:00 am Melody Mcpherson DO [Primary Care Provider] - 06/17/22 9:20 am Diet: Heart Healthy Addtl Attending Provider Instructions: f/u pschiatry appt and PCP Pending Studies at Discharge: No Stand-Alone Forms: My [place], Smoking Cessation Medications and DC Order Prescriptions: Continued Abilify Maintena 400 mg suspension,extended rel recon 400 mg IM MONTHLY lamotrigine 25 mg tablet 25 mg topiramate 25 mg tablet 25 mg olanzapine 7.5 mg tablet 7.5 mg escitalopram oxalate 20 mg tablet 20 mg naltrexone 50 mg tablet 50 mg Discharge Orders: Discharge Order (Routine); Ordered 06/05/22 Ordered By: Michael Coello/Other Patient Handouts: Disinfecting Your Home of COVID-19, 2019 Novel Coronavirus, COVID-19 Home Care, Suicide Recognize Own Warnings Admission Data Admit Date/Time: 06/02/22 17:57 Attending Provider: Yeison Peralta Admit Provider: Param Fishman Primary Care Provider: Melody Mcpherson Other Providers: Param Fishman ; Millie Sadler ; Kierra Call ; Carmen Molina ; Yeison Peralta ; Michael Hernandez Other Interventions: Discharge Summary Assessment (RN) Last Done: 06/05/22 14:20 Coding Level of Care Code D/C DAY MANAGEMENT <30 MINS Diagnoses COVID-19 U07.1 Suicidal ideation R45.851 Post traumatic stress disorder (PTSD) F43.10 MDD (major depressive disorder), recurrent episode, moderate F33.1 Low TSH level R79.89
== END 2022-06-05 16:05 | disposition home or self-care (01) | DRG 178 ==
LOC: ED 14:22 → SUATTDRO 17:57 → EDINP 17:57 → 3E 06-03 13:34

== ENCOUNTER 2022-07-07 17:38 | Inpatient (IN) ==
[2022-07-07 19:03] LABS: Basophils # (auto) 0.03 K/uL (0-0.2); Basophils % (auto) 0.3 %; Eosinophils % (auto) 1.1 %; Hematocrit (blood only) 37.3 % (34.1-44.9); Hemoglobin 12.4 g/dl (12.0-16.0); Immature Granulocytes # (auto) 0.05 K/uL (0.00-0.02); Immature Granulocytes % (auto) 0.6 %; Lymphocytes # (auto) 1.87 K/uL (1.2-3.4); Lymphocytes % (auto) 20.9 %; Mean Corpuscular Hemoglobin 29.2 pg (25.0-34.0); Mean Corpuscular Hgb Conc 33.2 g/dL (32.0-36.0); Mean Platelet Volume 9.3 fL (9.4-12.3); Monocytes # (auto) 0.77 K/uL (0.24-0.82); Monocytes % (auto) 8.6 %; Neutrophils # (auto) 6.14 K/uL (1.4-6.5); Neutrophils % (auto) 68.5 %; Platelet Count 721 K/uL (130-400); RDW Coefficient of Variation 14.1 % (11.5-14.5); RDW Standard Deviation 45.6 fL (36.4-46.3); Red Blood Count 4.24 M/uL (3.93-5.22); White Blood Count 8.96 K/ul (4.8-10.8)
[2022-07-07 19:26] LABS: Albumin Globulin Ratio 1.1 (0.9-2); Albumin Level 3.9 gm/dl (3.4-5.0); BUN Creatinine Ratio 21.1 (10-20); Bilirubin,Total 0.3 mg/dl (0.2-1.0); Calcium 9.3 mg/dl (8.5-10.1); Est GFR (Non-African American) 112.1 ml/min; Globulin 3.6 gm/dl (2.5-4.0); Potassium 3.6 mmol/L (3.5-5.1); Total Protein 7.5 gm/dl (6.0-8.3)
[2022-07-07 19:30] LABS: Acetaminophen < 3 ug/ml (10-30); Salicylate < 3.0 mg/dl (3.0-30)
--- NOTE | 2022-07-07 19:55 | Emergency Department Note ---
History of Present Illness General Chief complaint: Mental Health Evaluation Time Seen by Provider: 07/07/22 18:34 History of Present Illness Provider complaint: Mental health evaluation 21-year-old female presents emergency department for mental health evaluation. Patient reports she has been having increased auditory loose Nations and is having thoughts of wanting kill her self by overdosing on her psychiatric medications. No drugs or alcohol. No access to firearms. No chance of per patient. Home Medications Medication Instructions Recorded Confirmed Type aripiprazole 400 mg intramuscular 400 mg IM MONTHLY 04/07/21 07/07/22 History suspension,extended release (Abilify Maintena) olanzapine 7.5 mg tablet 7.5 mg PO HS 06/03/22 07/07/22 History topiramate 25 mg tablet 25 mg PO QAM 06/03/22 07/07/22 History ondansetron HCl 4 mg tablet 4 mg PO Q6H PRN nausea and 06/25/22 07/07/22 Rx vomiting #12 tabs acetaminophen 500 mg tablet 500 mg PO Q6H PRN pain #30 tabs 07/04/22 07/07/22 Rx tramadol 100 mg tablet 100 mg PO Q6H #30 tabs 07/04/22 07/07/22 Rx escitalopram oxalate 20 mg PO QAM 07/07/22 07/07/22 History hydroxyzine pamoate 25 mg PO TID PRN Anxiety 07/07/22 07/07/22 History Allergies Allergy/AdvReac Type Severity Reaction Status Date / Time risperidone Allergy Intermediate Verified 06/25/22 09:14 Past Med/Surg History Medical History Acute medial meniscus tear of right knee Adjustment disorder with depressed mood COVID-19 diagnosed 06/02/22 @ [facility]--states she hospitalized at [facility] for 3 days at the time for suicidal ideations--severe cough with mucous, headache--no symptoms now Depression Depression with suicidal ideation recent admission for this @ [facility] 06/02/22 Gastric polyp History of anesthesia reaction difficulty waking after EGD Low TSH level Major depressive disorder with psychotic features Partial tear of anterior cruciate ligament of knee Post traumatic stress disorder (PTSD) Right ACL tear Suicidal ideation recent admission to [facility] for this 06/02/22 Surgical History H/O esophagogastroduodenoscopy Family History Unknown Adopted Other Family history not known due to adoption Social History Smoking Status: Never smoker Second Hand Exposure: No; Hx Alcohol Use: No Hx Substance Use: No Preferred Language: Georgian Communication Ability: Effective Business Services Tech Required: No Beliefs That Will Affect Care: None Current Living Situation: Alone Feels Safe at Home: Yes Assistive Devices: None Review of Systems Unobtainable due to mental health condition Physical Exam Vital Signs Vital Signs - 24 hr 07/07/22 18:46 07/07/22 23:20 Temperature 36.7 C 36.8 C Temperature Source Oral Oral Pulse Rate 97 H Pulse Rate [Apical] 99 H Respiratory Rate 18 18 Respiratory Effort / Characteristics Non-Labored Respiratory Depth Normal Blood Pressure 117/87 Blood Pressure [Left Arm] 107/56 L Blood Pressure Mean 97 Blood Pressure Mean [Left Arm] 73 Pulse Oximetry 97 98 Oxygen Delivery Method Room Air Room Air Sepsis Recent Fever Within 48 Hours No Sepsis New/Unexplained Change in Mental Status No Sepsis Action Taken by Nursing No Action Required Physical Exam HENT: Exam performed. -Head: Normocephalic and atraumatic. -Right Ear: External ear normal. No mastoid tenderness. -Left Ear: External ear normal. No mastoid tenderness. -Mouth/Throat: The oropharynx is clear and moist. No trismus in the jaw. No dental abscesses or uvula swelling. No oropharyngeal exudate or tonsillar abscesses. EYES: Conjunctivae and EOM are normal. Pupils are equal, round, and reactive to light. Right eye exhibits no discharge. Left eye exhibits no discharge. No scleral icterus. NECK: Normal range of motion. Neck supple. No JVD present. No spinous process tenderness present. No carotid bruit present. No rigidity. No tracheal deviation and normal range of motion present. No Brudzinski's sign and no Kernig's sign noted. CV: Normal rate, regular rhythm, normal heart sounds and intact distal pulses. There is no peripheral edema. Palpable radial pulses bue. PULM/CHEST: Effort normal and breath sounds normal. No respiratory distress. No stridor. She has no wheezes. She has no rales. -Chest Wall: She exhibits no tenderness. ABD: The abdomen is soft and obese MUSC/SKEL: Right lower extremity is in knee brace. LYMPH: No cervical adenopathy. NEURO: SGCS eye subscore is 4. GCS verbal subscore is 5. GCS motor subscore is 6. PSYCH: Patient reports suicidal ideation and auditory hallucination. Course Course 1833: The patient was evaluated in room C2. A complete history and physical exam was performed 1954: Patient medically cleared. Awaiting psychiatric evaluation and possible placement. Patient placed in observation at this time. 0230: Vital signs stable. Awaiting placement. Night medications ordered for the patient. Case signed out to Dr. Verde. Administered Medications Discontinued Medications Olanzapine (Olanzapine 2.5 Mg Tab) 7.5 mg PO NOW STA Stop: 07/08/22 00:01 Last Admin: 07/08/22 00:22 Dose: 7.5 mg Documented By: LALO Medical Decision Making Laboratory Data Result diagrams: 07/07/22 18:38 07/07/22 18:38 Lab Results 07/07/22 07/07/22 07/07/22 Range/Units 18:38 18:38 18:38 WBC 8.96 (4.8-10.8) K/ul RBC 4.24 (3.93-5.22) M/uL Hgb 12.4 (12.0-16.0) g/dl Hct 37.3 (34.1-44.9) % MCV 88.0 (80.0-100.0) fL MCH 29.2 (25.0-34.0) pg MCHC 33.2 (32.0-36.0) g/dL RDW Std Deviation 45.6 (36.4-46.3) fL RDW Coeff of Anali 14.1 (11.5-14.5) % Plt Count 721 H (130-400) K/uL MPV 9.3 L (9.4-12.3) fL Immature Gran % (Auto) 0.6 % Neut % (Auto) 68.5 % Lymph % (Auto) 20.9 % [place] % (Auto) 8.6 % Eos % (Auto) 1.1 % Baso % (Auto) 0.3 % Neut # (Auto) 6.14 (1.4-6.5) K/uL Lymph # (Auto) 1.87 (1.2-3.4) K/uL Candler # (Auto) 0.77 (0.24-0.82) K/uL Eos # (Auto) 0.10 (0-0.50) K/uL Baso # (Auto) 0.03 (0-0.2) K/uL Immature Gran # (Auto) 0.05 H (0.00-0.02) K/uL Sodium 141 (136-145) mmol/L Potassium 3.6 (3.5-5.1) mmol/L Chloride 106 (98-107) mmol/L Carbon Dioxide 22 (21-32) mmol/L Anion Gap 13 H (3-11) BUN 16 (6-23) mg/dl Creatinine 0.76 (0.6-1.2) mg/dl Est Cr Clr Drug Dosing 106.0 ml/min Est GFR ( Amer) 130.0 ml/min Est GFR (Non-Af Amer) 112.1 ml/min BUN/Creatinine Ratio 21.1 H (10-20) Glucose 112 H (70-99(Fasting)) mg/dl Calcium 9.3 (8.5-10.1) mg/dl Total Bilirubin 0.3 (0.2-1.0) mg/dl AST 17 (13-39) U/L ALT 18 (7-52) U/L Alkaline Phosphatase 72 (34-104) U/L Total Protein 7.5 (6.0-8.3) gm/dl Albumin 3.9 (3.4-5.0) gm/dl Globulin 3.6 (2.5-4.0) gm/dl Albumin/Globulin Ratio 1.1 (0.9-2) TSH 3.687 (0.300-4.500) uIu/ml Urine Color Urine Appearance (Clear) Urine pH (4.5-7.5) Ur Specific [place] (1.000-1.030) Urine Protein (Negative) Urine Glucose (UA) (Negative) Urine Ketones (Negative) Urine Blood (Negative) Urine Nitrite (Negative) Urine Bilirubin (Negative) Urine Urobilinogen (Negative) Ur Leukocyte Esterase (Negative) Urine WBC (Auto) (0-5) /hpf Urine RBC (Auto) (0-4) /hpf U Hyaline Cast (Auto) (0-5) /lpf U Epithel Cells (Auto) (0-5) /lpf Urine Bacteria (Auto) (Negative) Urine Crystals Calcium Oxalate Crystal (None Prsent) Urine Yeast Salicylates (3.0-30) mg/dl Urine Opiates Screen (Neg) Ur Methadone, Qual (Neg) Acetaminophen (10-30) ug/ml Urine Barbiturates (Neg) Ur Phencyclidine (PCP) (Neg) U Amphetamin/Meth Scrn (Neg) MDMA (Ecstasy) Screen (Neg) U Benzodiazepines Scrn (Neg) Ur Cocaine Metabolite (Neg) U Marijuana (THC) Screen (Neg) Ethyl Alcohol mg/dL (<10.0) mg/dl SARS-CoV-2, RNA, NAAT (NEGATIVE) 07/07/22 07/07/22 07/07/22 Range/Units 18:38 18:38 18:38 WBC (4.8-10.8) K/ul RBC (3.93-5.22) M/uL Hgb (12.0-16.0) g/dl Hct (34.1-44.9) % MCV (80.0-100.0) fL MCH (25.0-34.0) pg MCHC (32.0-36.0) g/dL RDW Std Deviation (36.4-46.3) fL RDW Coeff of Anali (11.5-14.5) % Plt Count (130-400) K/uL MPV (9.4-12.3) fL Immature Gran % (Auto) % Neut % (Auto) % Lymph % (Auto) % Cand[place] % (Auto) % Eos % (Auto) % Baso % (Auto) % Neut # (Auto) (1.4-6.5) K/uL Lymph # (Auto) (1.2-3.4) K/uL Cand[place] # (Auto) (0.24-0.82) K/uL Eos # (Auto) (0-0.50) K/uL Baso # (Auto) (0-0.2) K/uL Immature Gran # (Auto) (0.00-0.02) K/uL Sodium (136-145) mmol/L Potassium (3.5-5.1) mmol/L Chloride (98-107) mmol/L Carbon Dioxide (21-32) mmol/L Anion Gap (3-11) BUN (6-23) mg/dl Creatinine (0.6-1.2) mg/dl Est Cr Clr Drug Dosing ml/min Est GFR ( Amer) ml/min Est GFR (Non-Af Amer) ml/min BUN/Creatinine Ratio (10-20) Glucose (70-99(Fasting)) mg/dl Calcium (8.5-10.1) mg/dl Total Bilirubin (0.2-1.0) mg/dl AST (13-39) U/L ALT (7-52) U/L Alkaline Phosphatase (34-104) U/L Total Protein (6.0-8.3) gm/dl Albumin (3.4-5.0) gm/dl Globulin (2.5-4.0) gm/dl Albumin/Globulin Ratio (0.9-2) TSH (0.300-4.500) uIu/ml Urine Color Urine Appearance (Clear) Urine pH (4.5-7.5) Ur Specific [place] (1.000-1.030) Urine Protein (Negative) Urine Glucose (UA) (Negative) Urine Ketones (Negative) Urine Blood (Negative) Urine Nitrite (Negative) Urine Bilirubin (Negative) Urine Urobilinogen (Negative) Ur Leukocyte Esterase (Negative) Urine WBC (Auto) (0-5) /hpf Urine RBC (Auto) (0-4) /hpf U Hyaline Cast (Auto) (0-5) /lpf U Epithel Cells (Auto) (0-5) /lpf Urine Bacteria (Auto) (Negative) Urine Crystals Calcium Oxalate Crystal (None Prsent) Urine Yeast Salicylates < 3.0 L (3.0-30) mg/dl Urine Opiates Screen (Neg) Ur Methadone, Qual (Neg) Acetaminophen < 3 L (10-30) ug/ml Urine Barbiturates (Neg) Ur Phencyclidine (PCP) (Neg) U Amphetamin/Meth Scrn (Neg) MDMA (Ecstasy) Screen (Neg) U Benzodiazepines Scrn (Neg) Ur Cocaine Metabolite (Neg) U Marijuana (THC) Screen (Neg) Ethyl Alcohol mg/dL < 10.0 (<10.0) mg/dl SARS-CoV-2, RNA, NAAT NEGATIVE (NEGATIVE) 07/07/22 07/07/22 Range/Units 20:57 20:57 WBC (4.8-10.8) K/ul RBC (3.93-5.22) M/uL Hgb (12.0-16.0) g/dl Hct (34.1-44.9) % MCV (80.0-100.0) fL MCH (25.0-34.0) pg MCHC (32.0-36.0) g/dL RDW Std Deviation (36.4-46.3) fL RDW Coeff of Anali (11.5-14.5) % Plt Count (130-400) K/uL MPV (9.4-12.3) fL Immature Gran % (Auto) % Neut % (Auto) % Lymph % (Auto) % Cand[place] % (Auto) % Eos % (Auto) % Baso % (Auto) % Neut # (Auto) (1.4-6.5) K/uL Lymph # (Auto) (1.2-3.4) K/uL [place] # (Auto) (0.24-0.82) K/uL Eos # (Auto) (0-0.50) K/uL Baso # (Auto) (0-0.2) K/uL Immature Gran # (Auto) (0.00-0.02) K/uL Sodium (136-145) mmol/L Potassium (3.5-5.1) mmol/L Chloride (98-107) mmol/L Carbon Dioxide (21-32) mmol/L Anion Gap (3-11) BUN (6-23) mg/dl Creatinine (0.6-1.2) mg/dl Est Cr Clr Drug Dosing ml/min Est GFR ( Amer) ml/min Est GFR (Non-Af Amer) ml/min BUN/Creatinine Ratio (10-20) Glucose (70-99(Fasting)) mg/dl Calcium (8.5-10.1) mg/dl Total Bilirubin (0.2-1.0) mg/dl AST (13-39) U/L ALT (7-52) U/L Alkaline Phosphatase (34-104) U/L Total Protein (6.0-8.3) gm/dl Albumin (3.4-5.0) gm/dl Globulin (2.5-4.0) gm/dl Albumin/Globulin Ratio (0.9-2) TSH (0.300-4.500) uIu/ml Urine Color Yellow Urine Appearance Clear (Clear) Urine pH 5.5 (4.5-7.5) Ur Specific [place] 1.026 (1.000-1.030) Urine Protein Negative (Negative) Urine Glucose (UA) Negative (Negative) Urine Ketones Negative (Negative) Urine Blood Negative (Negative) Urine Nitrite Negative (Negative) Urine Bilirubin Negative (Negative) Urine Urobilinogen Negative (Negative) Ur Leukocyte Esterase 2+ H (Negative) Urine WBC (Auto) >30 H (0-5) /hpf Urine RBC (Auto) 0-4 (0-4) /hpf U Hyaline Cast (Auto) 0 (0-5) /lpf U Epithel Cells (Auto) 20-30 H (0-5) /lpf Urine Bacteria (Auto) Negative (Negative) Urine Crystals Not Reportable Calcium Oxalate Crystal Present A (None Prsent) Urine Yeast Not Reportable Salicylates (3.0-30) mg/dl Urine Opiates Screen Neg (Neg) Ur Methadone, Qual Neg (Neg) Acetaminophen (10-30) ug/ml Urine Barbiturates Neg (Neg) Ur Phencyclidine (PCP) Neg (Neg) U Amphetamin/Meth Scrn Neg (Neg) MDMA (Ecstasy) Screen Neg (Neg) U Benzodiazepines Scrn Neg (Neg) Ur Cocaine Metabolite Neg (Neg) U Marijuana (THC) Screen Neg (Neg) Ethyl Alcohol mg/dL (<10.0) mg/dl SARS-CoV-2, RNA, NAAT (NEGATIVE) MDM Narrative Observation note Indication: Psych eval/placement Patient, with depression, was first seen at 1834 hrs and the observation time began at 1955 hrs and was necessary in order to have psych evaluation completed . Impression & Plan Depression with suicidal ideation Discharge Plan Visit Data Chief Complaint: Mental Health Evaluation ED Provider: Oleg Palza Discharge Problem: Depression with suicidal ideation Patient Disposition: Still a Patient Forms Stand Alone Forms: [facility], Suicide Prevention Resources Prescriptions Prescriptions: No Action Abilify Maintena 400 mg suspension,extended rel recon 400 mg IM MONTHLY hydroxyzine pamoate 25 mg 25 mg PO TID PRN (Reason: Anxiety) escitalopram oxalate 20 mg 20 mg PO QAM topiramate 25 mg tablet 25 mg PO QAM olanzapine 7.5 mg tablet 7.5 mg PO HS ondansetron HCl 4 mg tablet 4 mg PO Q6H PRN (Reason: nausea and vomiting) Qty: 12 0RF tramadol 100 mg tablet 100 mg PO Q6H Qty: 30 0RF acetaminophen 500 mg tablet 500 mg PO Q6H PRN (Reason: pain) Qty: 30 0RF Referrals Referrals: Melody Mcpherson DO [Primary Care Provider] -
[2022-07-07 22:10] LABS: Appearance Urine Clear (Clear); Bacteria Urine Automated Negative (Negative); Bilirubin Urine Negative (Negative); Blood Urine Negative (Negative); Color Urine Yellow; Epithelial Cell Urine Auto 20-30 /lpf (0-5); Glucose Urine UA Negative (Negative); Ketones Urine Negative (Negative); Leukocyte Esterase Urine 2+ (Negative); Nitrite Urine Negative (Negative); Protein Urine Negative (Negative); RBC Urine Automated 0-4 /hpf (0-4); Specific Gravity Urine 1.026 (1.000-1.030); Urobilinogen Urine Negative (Negative); WBC Urine Automated >30 /hpf (0-5); pH Urine 5.5 (4.5-7.5)
[2022-07-07 22:14] LABS: Amphetamines+Metham, Urine Neg (Neg); Barbiturates, Urine Neg (Neg); Benzodiazepine, Urine Neg (Neg); Cocaine, Urine Neg (Neg); MDMA (Ecstacy), Urine Neg (Neg); Methadone, Urine Neg (Neg); Opiate, Urine Neg (Neg); Phencyclidine, Urine Neg (Neg)
[2022-07-07 22:27] LABS: Calcium Oxalate Crystals Urine Present (None Prsent); Cast Urine Automated 0 /lpf (0-5)
[2022-07-08] MEDS ORDERED: OLANZAPINE 2.5 MG TAB PO STA
[2022-07-08] MEDS ORDERED: ACETAMINOPHEN 325 MG TAB PO STA (08:48)
--- NOTE | 2022-07-08 09:08 | Emergency Department Note ---
ED Visit Note Patient signed out to me at change of shift Dr. Plaza. Patient here with depression, auditory hallucinations, and plan to overdose. Patient medically cleared at time of signout. Patient plan for admission to [facility] in the morning. No issues reported during my shift. Patient being reviewed by Nikita. Case signed out to Dr. Herzog. .
--- NOTE | 2022-07-08 10:03 | Emergency Department Note ---
ED Visit Note Patient is a 21-year-old female who presents the ER for suicidal ideations with a plan to overdose. She was seen evaluated and medically cleared overnight. She signed out to me by Dr. Verde awaiting placement. Currently being referred for placement on a 201 with suicidal ideations. Patient resting comfortably under my care and was excepted to 3 S. under 201. .
[2022-07-08 12:18] LABS: Pregnancy Test, Urine Negative (Negative)
[2022-07-08] MEDS ORDERED: ALUMINUM/MAGNESIUM SUSP 30 ML UDC PO PRN (13:48)
[2022-07-08] MEDS ORDERED: BISMUTH SUBSALICYLATE LIQD 236 ML PO PRN (13:48)
[2022-07-08] MEDS ORDERED: SODIUM CHLORIDE 0.65% NA SOLN 45 ML (OCEAN) PRN (13:48)
[2022-07-08] MEDS ORDERED: MAGNESIUM HYDROXIDE SUSP 30 ML UDC PO PRN (13:48)
[2022-07-08] MEDS ORDERED: hydrOXYzine HCl 25 MG TAB PO PRN (13:48)
[2022-07-08] MEDS ORDERED: ONDANSETRON 4 MG OD TAB PO PRN (14:36)
[2022-07-08] MEDS ORDERED: FLUARIX QUADRIVALENT 0.5 ML SYR IM ONE (14:59)
[2022-07-08] MEDS: traMADol HCL 50 MG TABLET PO PRN (16:28)
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
[2022-07-08] MEDS: OLANZAPINE 2.5 MG TAB PO SCH (20:34)
[2022-07-09] MEDS: ESCITALOPRAM OXALATE 20 MG TAB PO SCH (09:06)
[2022-07-09] MEDS: TOPIRAMATE 25 MG TAB PO SCH (09:06)
[2022-07-09] MEDS: traMADol HCL 50 MG TABLET PO PRN ×2 (10:09→21:13)
--- NOTE | 2022-07-09 13:09 | Psychiatric Progress Note ---
Date of Service July 09, 2022 Impression / Recommendations Impression 21 yo female with a history of a variety of diagnoses (PTSD, bipolar do, psychosis) currently having SI in the context of post op pain. MNPR due to wound, limited coping at this time 07/09/22: ongoing overwhelm and SI. (1) Depression with suicidal ideation: (2) S/P ACL reconstruction: Plan 07/09/22: There is now a report of patient taking lamictal and CM states plan was for titration, records pending. Last rx appears to be early May. 07/08/22: The patient was admitted to the [facility] ([facility] health unit) on q15 min checks (behavioral with suicide precautions) for safety. The patient will participate in group, recreational, and milieu therapies and will be offered additional individual and family sessions as clinically appropriate. Risks/benefits/alternatives reviewed re: current medications. Will confirm date of last Abilify injection. Inventory Assets Strengths: accepting of services, follows crisis protocols Needs: post op care, improve coping Suicide Risk Level Suicide Risk Level: High-Moderate (q15 min suicide checks) (safety plans on unit) Risk Factors Assessment : Yes Do You Have Access To A Gun?: No Health Problems: Yes Mental Health Diagnoses: Yes Substance Use Disorders: No Previous Psychiatric Hospitalization: Yes Protective Factors Assessment Employed: No Stable Relationships: Yes Good Rapport with Provider: Yes Interval History Identifying Information BAUTISTA ALLRED is a 21-year-old F from [place], extensive psych hx, was admitted on 07/08/22 13:48 on a 201 voluntary commitment for SI. Chief Complaint "I just don't have a reason to live". Review of Systems Sleep Information Total Hours of Sleep: 6 Meal Information Percent Meal Consumed - Dinner: 100 Subjective Subjective Patient was seen & assessed and interval progress reviewed with treatment team. Patient admits she had difficulty managing her pain alone at home. She feels that her CM criticized her food choices when went shopping with her in the community. Patient has no tv or computer and [place] in [place]. She appears bright in interactions with groups but easily tearful in meeting with SW. She states the visual jaimes of arrows on the lights started before surgery/tramadol. Physical Exam Psychiatric Orientation: alert and oriented x 3 Apperance: appropriately dressed and appropriately groomed Eye Contact: good eye contact Motor Behavior: no abnormal motor movements ((just gait shift due to surgery)) Speech: normal rate/rhythm/volume of speech Affect: euthymic affect Mood: + depressed mood Thought Process: + concrete thought process Thought Content: reality based without delusions Suicidal Thoughts: denies suicidal intent; + reports suicidal thoughts (intermittent) and + reports suicidal plan (OD on meds) Homicidal Thoughts: denies homicidal thoughts Hallucinations: no auditory hallucinations and no visual hallucinations Cognition: attention grossly intact and language grossly intact Estimated Intelligence: consistent with education level Insight: + limited insight Judgement: + limited judgement Vital Signs (Past 24 Hours) Last Vital Signs Temp 36.4 C L 07/09/22 06:42 Pulse 102 H 07/09/22 06:42 Resp 18 07/09/22 06:42 BP 105/71 07/09/22 06:42 Pulse Ox 97 07/08/22 09:10 O2 Del Method 07/08/22 14:28 Results & Data ([facility]) Current Inpatient Medications Current Inpatient Medications: Current Inpatient Medications Acetaminophen (Acetaminophen 325 Mg Tab) 650 mg PO Q4H PRN PRN Reason: Headache or Minor Fever Stop: 08/07/22 13:47 Al Hydrox/Mg Hydrox/Simethicone (Aluminum/Magnesium Susp 30 Ml Udc) 30 ml PO Q4H PRN PRN Reason: GI Upset Stop: 08/07/22 13:47 Bismuth Subsalicylate (Bismuth Subsalicylate Liqd 236 Ml) 15 ml PO PRN PRN PRN Reason: Loose Stool Stop: 08/07/22 13:47 Last Admin: 07/09/22 07:54 Dose: 15 ml Escitalopram Oxalate (Escitalopram Oxalate 20 Mg Tab) 20 mg PO QAM IFEOMA Stop: 08/08/22 08:59 Last Admin: 07/09/22 09:06 Dose: 20 mg Hydroxyzine HCl (Hydroxyzine Hcl 25 Mg Tab) 50 mg PO HSZ PRN PRN Reason: Insomnia Stop: 08/07/22 13:47 Hydroxyzine HCl (Hydroxyzine Hcl 25 Mg Tab) 25 mg PO Q4H PRN PRN Reason: Anxiety Stop: 08/07/22 13:47 Magnesium Hydroxide (Magnesium Hydroxide Susp 30 Ml Udc) 30 ml PO DAILY PRN PRN Reason: Constipation Stop: 08/07/22 13:47 Olanzapine (Olanzapine 2.5 Mg Tab) 7.5 mg PO HS IFEOMA Stop: 08/07/22 21:59 Last Admin: 07/08/22 20:34 Dose: 7.5 mg Ondansetron HCl (Ondansetron 4 Mg Od Tab) 4 mg PO Q6H PRN PRN Reason: nausea and vomiting Stop: 08/07/22 14:35 Sodium Chloride (Sodium Chloride 0.65% Na Soln 45 Ml ([place])) 1 - 2 sprays NA PRN PRN PRN Reason: Nasal Dryness/Congestion Stop: 08/07/22 13:47 Topiramate (Topiramate 25 Mg Tab) 25 mg PO QAM IFEOMA Stop: 08/08/22 08:59 Last Admin: 07/09/22 09:06 Dose: 25 mg Tramadol HCl (Tramadol Hcl 50 Mg Tablet) 100 mg PO Q6H PRN PRN Reason: Pain Stop: 08/07/22 14:55 Last Admin: 07/09/22 10:09 Dose: 100 mg Mental Health & Subst Abuse Tx Psychiatrist Name of Psychiatrist: Nayely Null Psychiatrist's Date of Appointment with Psychiatrist: 07/23/22 Time of Appointment with Psychiatrist: 10am Psychiatric Appointment Comment: [address] [place], [place] Therapist Name of Therapist: Nayely Martinez Therapist's Date of Therapist Appointment: 07/14/22 Time of Therapist Appointment: 3pm Therapy Appointment Comment: [address] [place], [place] Social Worker Name of Social Worker: [facility]Rivka Keating Phone Number for Social Worker: [phone] Post Discharge Appointments Primary Care Physician Name Of Family Doctor: Nayely Mcpherson Primary Care Provider Appointment Comment: [address] [place], [place] Scrap Dealer Name of Scrap Dealer: Kris Specialist Name of Specialist: [facility] Phone Number for Specialist: Date of Appointment with Specialist: 07/16/22 Time of Appointment with Specialist: 11am Specialty Appointment Comment: [address], [place] [address] Contact Information Discharge Discharge Address: [address] [place] [address] DEJUAN Hassan [id number]
[2022-07-09] MEDS: lamoTRIgine 25 MG TAB PO SCH (16:18)
[2022-07-09] MEDS: OLANZAPINE 2.5 MG TAB PO SCH (21:10)
[2022-07-10] MEDS: ESCITALOPRAM OXALATE 20 MG TAB PO SCH (09:01)
[2022-07-10] MEDS: TOPIRAMATE 25 MG TAB PO SCH (09:01)
[2022-07-10] MEDS: lamoTRIgine 25 MG TAB PO SCH (09:01)
--- NOTE | 2022-07-10 13:13 | Psychiatric Progress Note ---
Date of Service July 10, 2022 Impression / Recommendations Impression 21 yo female with a history of a variety of diagnoses (PTSD, bipolar do, psychosis) currently having SI in the context of post op pain. MNPR due to wound, limited coping at this time 07/10/22: unchanged plus monitor for D (1) Depression with suicidal ideation: (2) S/P ACL reconstruction: Plan 07/10/22: Risks/benefits/alternatives reviewed re: Lamictal for mood stabilization. Discussion included but was not limited to slow titration to decrease risks of Kyle's Taran syndrome. Patient agrees to hold med/notify current prescriber of rash immediately. Patient is essentially a restart as couldn't picket [employer] script after rehab. First dose yesterday. 07/09/22: There is now a report of patient taking lamictal and CM states plan was for titration, records pending. Last rx appears to be early May. 07/08/22: The patient was admitted to the [facility] ([facility]) on q15 min checks (behavioral with suicide precautions) for safety. The patient will participate in group, recreational, and milieu therapies and will be offered additional individual and family sessions as clinically appropriate. Risks/benefits/alternatives reviewed re: current medications. Will confirm date of last Abilify injection. Inventory Assets Strengths: accepting of services, follows crisis protocols Needs: post op care, improve coping Suicide Risk Level Suicide Risk Level: High-Moderate (q15 min suicide checks) (safety plans on unit) Risk Factors Assessment : Yes Do You Have Access To A Gun?: No Health Problems: Yes Mental Health Diagnoses: Yes Substance Use Disorders: No Previous Psychiatric Hospitalization: Yes Protective Factors Assessment Employed: No Stable Relationships: Yes Good Rapport with Provider: Yes Interval History Identifying Information BAUTISTA ALLRED is a 21-year-old F from [place], extensive psych hx, was admitted on 07/08/22 13:48 on a 201 voluntary commitment for SI. Chief Complaint "I don't feel good". Review of Systems Sleep Information Total Hours of Sleep: 6.5 Meal Information Percent Meal Consumed - Breakfast: 100 Percent Meal Consumed - Lunch: 40 Percent Meal Consumed - Dinner: 90 Subjective Subjective Patient was seen & assessed and interval progress reviewed with nursing and social work. Patient was awake and eating 100% of breakfast, later told nursing she had had 2 loose stools overnight and is feeling tired today. She does not attribute the GI issue to starting Lamictal as took before during brief [facility] stay without incident. SW communicating with CM and hopefully payee to discuss options to increase after hours activities/support. Physical Exam Psychiatric Orientation: alert and oriented x 3 Apperance: appropriately dressed and appropriately groomed Eye Contact: good eye contact Motor Behavior: no abnormal motor movements ((just gait shift due to surgery)) Speech: normal rate/rhythm/volume of speech Affect: euthymic affect Mood: + depressed mood Thought Process: + concrete thought process Thought Content: reality based without delusions Suicidal Thoughts: denies suicidal intent; + reports suicidal thoughts (intermittent) and + reports suicidal plan (OD on meds) Homicidal Thoughts: denies homicidal thoughts Hallucinations: no auditory hallucinations and no visual hallucinations Cognition: attention grossly intact and language grossly intact Estimated Intelligence: consistent with education level Insight: + limited insight Judgement: + limited judgement Vital Signs (Past 24 Hours) Last Vital Signs Temp 36.8 C 07/10/22 06:44 Pulse 91 H 07/10/22 06:45 Resp 16 07/10/22 06:44 BP 100/70 07/10/22 06:45 Pulse Ox 97 07/08/22 09:10 O2 Del Method 07/08/22 14:28 Results & Data ([facility]) Current Inpatient Medications Current Inpatient Medications: Current Inpatient Medications Acetaminophen (Acetaminophen 325 Mg Tab) 650 mg PO Q4H PRN PRN Reason: Headache or Minor Fever Stop: 08/07/22 13:47 Al Hydrox/Mg Hydrox/Simethicone (Aluminum/Magnesium Susp 30 Ml Udc) 30 ml PO Q4H PRN PRN Reason: GI Upset Stop: 08/07/22 13:47 Bismuth Subsalicylate (Bismuth Subsalicylate Liqd 236 Ml) 15 ml PO PRN PRN PRN Reason: Loose Stool Stop: 08/07/22 13:47 Last Admin: 07/09/22 07:54 Dose: 15 ml Escitalopram Oxalate (Escitalopram Oxalate 20 Mg Tab) 20 mg PO QAM IFEOMA Stop: 08/08/22 08:59 Last Admin: 07/10/22 09:01 Dose: 20 mg Hydroxyzine HCl (Hydroxyzine Hcl 25 Mg Tab) 50 mg PO HSZ PRN PRN Reason: Insomnia Stop: 08/07/22 13:47 Hydroxyzine HCl (Hydroxyzine Hcl 25 Mg Tab) 25 mg PO Q4H PRN PRN Reason: Anxiety Stop: 08/07/22 13:47 Lamotrigine (Lamotrigine 25 Mg Tab) 25 mg PO QAM IFEOMA Stop: 08/08/22 13:59 Last Admin: 07/10/22 09:01 Dose: 25 mg Magnesium Hydroxide (Magnesium Hydroxide Susp 30 Ml Udc) 30 ml PO DAILY PRN PRN Reason: Constipation Stop: 08/07/22 13:47 Olanzapine (Olanzapine 2.5 Mg Tab) 7.5 mg PO HS IFEOMA Stop: 08/07/22 21:59 Last Admin: 07/09/22 21:10 Dose: 7.5 mg Ondansetron HCl (Ondansetron 4 Mg Od Tab) 4 mg PO Q6H PRN PRN Reason: nausea and vomiting Stop: 08/07/22 14:35 Sodium Chloride (Sodium Chloride 0.65% Na Soln 45 Ml ([place])) 1 - 2 sprays NA PRN PRN PRN Reason: Nasal Dryness/Congestion Stop: 08/07/22 13:47 Topiramate (Topiramate 25 Mg Tab) 25 mg PO QAM IFEOMA Stop: 08/08/22 08:59 Last Admin: 07/10/22 09:01 Dose: 25 mg Tramadol HCl (Tramadol Hcl 50 Mg Tablet) 100 mg PO Q6H PRN PRN Reason: Pain Stop: 08/07/22 14:55 Last Admin: 07/09/22 21:13 Dose: 100 mg Mental Health & Subst Abuse Tx Psychiatrist Name of Psychiatrist: Nayely Null Psychiatrist's Date of Appointment with Psychiatrist: 07/23/22 Time of Appointment with Psychiatrist: 10am Psychiatric Appointment Comment: [address] [place], [place] Therapist Name of Therapist: Nayely Martinez Therapist's Date of Therapist Appointment: 07/14/22 Time of Therapist Appointment: 3pm Therapy Appointment Comment: [address] [place], [place] Naval Architect Name of Naval Architect: [place] Ryann LAWTON/Chaparrita Keating Phone Number for Naval Architect: [phone] Post Discharge Appointments Primary Care Physician Name Of Family Doctor: Nayely Nlul- Melody Mcpherson Primary Care Provider Appointment Comment: [address] [place], [place] Chicken Hanger Name of Chicken Hanger: Kris Specialist Name of Specialist: [facility] Phone Number for Specialist: Date of Appointment with Specialist: 07/16/22 Time of Appointment with Specialist: 11am Specialty Appointment Comment: [address], [place] [address] Contact Information Discharge Discharge Address: [address] [place] [id number]
[2022-07-10] MEDS: traMADol HCL 50 MG TABLET PO PRN ×2 (14:48→22:09)
[2022-07-10] MEDS: OLANZAPINE 2.5 MG TAB PO SCH (22:09)
[2022-07-11] MEDS: lamoTRIgine 25 MG TAB PO SCH (10:03)
[2022-07-11] MEDS: TOPIRAMATE 25 MG TAB PO SCH (10:03)
[2022-07-11] MEDS: ESCITALOPRAM OXALATE 20 MG TAB PO SCH (10:03)
--- NOTE | 2022-07-11 11:12 | Psychiatric Progress Note ---
Date of Service July 11, 2022 Impression / Recommendations Impression 21 yo female with a history of a variety of diagnoses (PTSD, bipolar do, psychosis) currently having SI in the context of post op pain. MNPR due to wound, limited coping at this time 07/11/22: concrete in interactions, immediately hopeless outside of structured activities. (1) Depression with suicidal ideation: (2) S/P ACL reconstruction: Plan 07/11/22: continue current meds and tx plan. 07/10/22: Risks/benefits/alternatives reviewed re: Lamictal for mood stabilization. Discussion included but was not limited to slow titration to decrease risks of Kyle's Taran syndrome. Patient agrees to hold med/notify current prescriber of rash immediately. Patient is essentially a restart as couldn't sampler pickup script after rehab. First dose yesterday. 07/09/22: There is now a report of patient taking lamictal and CM states plan was for titration, records pending. Last rx appears to be early May. 07/08/22: The patient was admitted to the [facility] ([facility] mental health unit) on q15 min checks (behavioral with suicide precautions) for safety. The patient will participate in group, recreational, and milieu therapies and will be offered additional individual and family sessions as clinically appropriate. Risks/benefits/alternatives reviewed re: current medications. Will confirm date of last Abilify injection. Inventory Assets Strengths: accepting of services, follows crisis protocols Needs: post op care, improve coping Suicide Risk Level Suicide Risk Level: High-Moderate (q15 min suicide checks) Risk Factors Assessment : Yes Do You Have Access To A Gun?: No Health Problems: Yes Mental Health Diagnoses: Yes Substance Use Disorders: No Previous Psychiatric Hospitalization: Yes Protective Factors Assessment Employed: No Stable Relationships: Yes Good Rapport with Provider: Yes Interval History Identifying Information BAUTISTA ALLRED is a 21-year-old F from [place], extensive psych hx, was admitted on 07/08/22 13:48 on a 201 voluntary commitment for SI. Chief Complaint wants to be more honest, doesn't feel she is doing well. Review of Systems Sleep Information Total Hours of Sleep: 6.5 Meal Information Percent Meal Consumed - Breakfast: 100 Percent Meal Consumed - Lunch: 75 Percent Meal Consumed - Dinner: 100 Subjective Subjective Patient was seen & assessed and interval progress reviewed with treatment team. Continues to report "bathroom issues" but seems less and not impacting her activities or her eating. She was seen by PT and is ambulating well with brace/able to stand for unit activities prn. Physical Exam Psychiatric Orientation: alert and oriented x 3 Apperance: appropriately dressed and appropriately groomed Eye Contact: good eye contact Motor Behavior: no abnormal motor movements ((just gait shift due to surgery)) Speech: normal rate/rhythm/volume of speech Affect: euthymic affect Thought Process: + concrete thought process Thought Content: reality based without delusions Suicidal Thoughts: denies suicidal intent; + reports suicidal thoughts (intermittent) and + reports suicidal plan (OD on meds) Homicidal Thoughts: denies homicidal thoughts Hallucinations: no auditory hallucinations and no visual hallucinations Cognition: attention grossly intact and language grossly intact Estimated Intelligence: consistent with education level Insight: + limited insight Judgement: + limited judgement Vital Signs (Past 24 Hours) Last Vital Signs Temp 36.9 C 07/11/22 06:32 Pulse 94 H 07/11/22 06:33 Resp 16 07/11/22 06:32 BP 96/65 L 07/11/22 06:33 Pulse Ox 97 07/08/22 09:10 O2 Del Method 07/08/22 14:28 Results & Data ([facility]) Current Inpatient Medications Current Inpatient Medications: Current Inpatient Medications Acetaminophen (Acetaminophen 325 Mg Tab) 650 mg PO Q4H PRN PRN Reason: Headache or Minor Fever Stop: 08/07/22 13:47 Al Hydrox/Mg Hydrox/Simethicone (Aluminum/Magnesium Susp 30 Ml Udc) 30 ml PO Q4H PRN PRN Reason: GI Upset Stop: 08/07/22 13:47 Bismuth Subsalicylate (Bismuth Subsalicylate Liqd 236 Ml) 15 ml PO PRN PRN PRN Reason: Loose Stool Stop: 08/07/22 13:47 Last Admin: 07/09/22 07:54 Dose: 15 ml Escitalopram Oxalate (Escitalopram Oxalate 20 Mg Tab) 20 mg PO QAM IFEOMA Stop: 08/08/22 08:59 Last Admin: 07/11/22 10:03 Dose: 20 mg Hydroxyzine HCl (Hydroxyzine Hcl 25 Mg Tab) 50 mg PO HSZ PRN PRN Reason: Insomnia Stop: 08/07/22 13:47 Hydroxyzine HCl (Hydroxyzine Hcl 25 Mg Tab) 25 mg PO Q4H PRN PRN Reason: Anxiety Stop: 08/07/22 13:47 Lamotrigine (Lamotrigine 25 Mg Tab) 25 mg PO QAM IFEOMA Stop: 08/08/22 13:59 Last Admin: 07/11/22 10:03 Dose: 25 mg Magnesium Hydroxide (Magnesium Hydroxide Susp 30 Ml Udc) 30 ml PO DAILY PRN PRN Reason: Constipation Stop: 08/07/22 13:47 Olanzapine (Olanzapine 2.5 Mg Tab) 7.5 mg PO HS IFEOMA Stop: 08/07/22 21:59 Last Admin: 07/10/22 22:09 Dose: 7.5 mg Ondansetron HCl (Ondansetron 4 Mg Od Tab) 4 mg PO Q6H PRN PRN Reason: nausea and vomiting Stop: 08/07/22 14:35 Sodium Chloride (Sodium Chloride 0.65% Na Soln 45 Ml ([place])) 1 - 2 sprays NA PRN PRN PRN Reason: Nasal Dryness/Congestion Stop: 08/07/22 13:47 Topiramate (Topiramate 25 Mg Tab) 25 mg PO QAM IFEOMA Stop: 08/08/22 08:59 Last Admin: 07/11/22 10:03 Dose: 25 mg Tramadol HCl (Tramadol Hcl 50 Mg Tablet) 100 mg PO Q6H PRN PRN Reason: Pain Stop: 08/07/22 14:55 Last Admin: 07/10/22 22:09 Dose: 100 mg Mental Health & Subst Abuse Tx Psychiatrist Name of Psychiatrist: Nayely Null Psychiatrist's Date of Appointment with Psychiatrist: 07/23/22 Time of Appointment with Psychiatrist: 10am Psychiatric Appointment Comment: [address] [place], [place] Therapist Name of Therapist: Nayely Martinez Therapist's Date of Therapist Appointment: 07/14/22 Time of Therapist Appointment: 3pm Therapy Appointment Comment: [address] [place], [place] Clinical Exercise Physiologist Name of Clinical Exercise Physiologist: [facility] Annette Keating Phone Number for Clinical Exercise Physiologist: [phone] Time of Appointment with Clinical Exercise Physiologist: continued scheduled meetings as usual Post Discharge Appointments Primary Care Physician Name Of Family Doctor: Nayely Null- Melody Mcpherson Primary Care Time of Appointment with PCP: please follow up as needed Provider Appointment Comment: [address] [place], [place] Allergist/Immunologist Physician Name of Allergist/Immunologist Physician: Kris Time of Appointment with Allergist/Immunologist Physician: contunue regular schedule as usual Specialist Name of Specialist: [facility] Phone Number for Specialist: Date of Appointment with Specialist: 07/16/22 Time of Appointment with Specialist: 11am Specialty Appointment Comment: [address], [place] [address] Contact Information Discharge Discharge Address: [address] [place], [place] [address] [id number]
[2022-07-11] MEDS: traMADol HCL 50 MG TABLET PO PRN (20:49)
[2022-07-11] MEDS: OLANZAPINE 2.5 MG TAB PO SCH (20:50)
--- NOTE | 2022-07-12 09:09 | Psychiatric Progress Note ---
Date of Service July 12, 2022 Impression / Recommendations Impression 21 yo female with a history of a variety of diagnoses (PTSD, bipolar do, psychosis) currently having SI in the context of post op pain and limited social support. Diagnostically consistent with major depressive episode versus bipolar depression. She is deemed unstable and requires psychiatric hospitalization for diagnostic clarification, safety and stabilization, medication management and development of further coping skills. MNPR due to wound, limited coping at this time 07/12/22: Remains severely depressed with SI and social isolation. Reviewed interim progress per Dr. Call. Tolerating initiation of lamictal. Seems symptoms are largely driven by recent psychosocial stressors of surgery and social isolation especially as no longer has tablet to connect with others virtually/online. (1) Depression with suicidal ideation: (2) S/P ACL reconstruction: Plan 07/12/22: Continue current medications and tx plan. Recheck fasting lipid panel given she remains on abilify and olanzapine with 22 lb weight gain since last admission in January 2022. 07/11/22: continue current meds and tx plan. 07/10/22: Risks/benefits/alternatives reviewed re: Lamictal for mood stabilization. Discussion included but was not limited to slow titration to decrease risks of Kyle's Taran syndrome. Patient agrees to hold med/notify current prescriber of rash immediately. Patient is essentially a restart as couldn't pharmacy picking tech script after rehab. First dose yesterday. 07/09/22: There is now a report of patient taking lamictal and CM states plan was for titration, records pending. Last rx appears to be early May. 07/08/22: The patient was admitted to the [facility] ([facility] mental health unit) on q15 min checks (behavioral with suicide precautions) for safety. The patient will participate in group, recreational, and milieu therapies and will be offered additional individual and family sessions as clinically appropriate. Risks/benefits/alternatives reviewed re: current medications. Will confirm date of last Abilify injection. Inventory Assets Strengths: accepting of services, follows crisis protocols Needs: post op care, improve coping Suicide Risk Level Suicide Risk Level: High-Moderate (q15 min suicide checks) (severe depression with SI with plan prior to admission, feels safe in hospital and agrees to alert nursing should she feel unable to remain safe or should SI intensify to point of plan or intent for in hospital ) Risk Factors Assessment : Yes Do You Have Access To A Gun?: No Health Problems: Yes Mental Health Diagnoses: Yes Substance Use Disorders: No Previous Psychiatric Hospitalization: Yes Protective Factors Assessment Employed: No Stable Relationships: Yes Good Rapport with Provider: Yes Interval History Identifying Information BAUTISTA ALLRED is a 21-year-old F from [place], extensive psych hx, was admitted on 07/08/22 13:48 on a 201 voluntary commitment for SI. Chief Complaint "I feel really depressed". Review of Systems Sleep Information Total Hours of Sleep: 8 Meal Information Percent Meal Consumed - Breakfast: 100 Percent Meal Consumed - Lunch: 100 Percent Meal Consumed - Dinner: 100 Subjective Subjective Patient was seen & assessed and interval progress reviewed with treatment team nursing and social work. Bautista continues to feel very depressed. Today is lying in bed during mid-day and appears sad and flat. Continues to have some knee pain but finding tramadol helpful. No diarrhea today. Continues to have SI. Denies side effects from lamictal. Physical Exam Psychiatric Orientation: alert and oriented x 3 Apperance: appropriately dressed and appropriately groomed Eye Contact: + fair eye contact Motor Behavior: no abnormal motor movements ((just gait shift due to surgery)) Speech: normal rate/rhythm/volume of speech Affect: + depressed affect and + flat affect Mood: + depressed mood Thought Process: + concrete thought process Thought Content: reality based without delusions Suicidal Thoughts: denies suicidal intent; + reports suicidal thoughts (intermittent) and + reports suicidal plan (OD on meds) Homicidal Thoughts: denies homicidal thoughts Hallucinations: no auditory hallucinations and no visual hallucinations Cognition: attention grossly intact and language grossly intact Estimated Intelligence: consistent with education level Insight: + limited insight Judgement: + limited judgement Vital Signs (Past 24 Hours) Last Vital Signs Temp 36.8 C 07/12/22 06:00 Pulse 102 H 07/12/22 06:45 Resp 16 07/12/22 06:00 BP 97/51 L 07/12/22 06:45 Pulse Ox 99 07/12/22 06:00 O2 Del Method 07/12/22 06:00 Results & Data ([facility]) Current Inpatient Medications Current Inpatient Medications: Current Inpatient Medications Acetaminophen (Acetaminophen 325 Mg Tab) 650 mg PO Q4H PRN PRN Reason: Headache or Minor Fever Stop: 08/07/22 13:47 Al Hydrox/Mg Hydrox/Simethicone (Aluminum/Magnesium Susp 30 Ml Udc) 30 ml PO Q4H PRN PRN Reason: GI Upset Stop: 08/07/22 13:47 Bismuth Subsalicylate (Bismuth Subsalicylate Liqd 236 Ml) 15 ml PO PRN PRN PRN Reason: Loose Stool Stop: 08/07/22 13:47 Last Admin: 07/09/22 07:54 Dose: 15 ml Escitalopram Oxalate (Escitalopram Oxalate 20 Mg Tab) 20 mg PO [facility] Stop: 08/08/22 08:59 Last Admin: 07/11/22 10:03 Dose: 20 mg Hydroxyzine HCl (Hydroxyzine Hcl 25 Mg Tab) 50 mg PO HSZ PRN PRN Reason: Insomnia Stop: 08/07/22 13:47 Hydroxyzine HCl (Hydroxyzine Hcl 25 Mg Tab) 25 mg PO Q4H PRN PRN Reason: Anxiety Stop: 08/07/22 13:47 Lamotrigine (Lamotrigine 25 Mg Tab) 25 mg PO [facility] Stop: 08/08/22 13:59 Last Admin: 07/11/22 10:03 Dose: 25 mg Magnesium Hydroxide (Magnesium Hydroxide Susp 30 Ml Udc) 30 ml PO DAILY PRN PRN Reason: Constipation Stop: 08/07/22 13:47 Olanzapine (Olanzapine 2.5 Mg Tab) 7.5 mg PO HS [facility] Stop: 08/07/22 21:59 Last Admin: 07/11/22 20:50 Dose: 7.5 mg Ondansetron HCl (Ondansetron 4 Mg Od Tab) 4 mg PO Q6H PRN PRN Reason: nausea and vomiting Stop: 08/07/22 14:35 Sodium Chloride (Sodium Chloride 0.65% Na Soln 45 Ml ([place])) 1 - 2 sprays NA PRN PRN PRN Reason: Nasal Dryness/Congestion Stop: 08/07/22 13:47 Topiramate (Topiramate 25 Mg Tab) [facility] Stop: 08/08/22 08:59 Last Admin: 07/11/22 10:03 Dose: 25 mg Tramadol HCl (Tramadol Hcl 50 Mg Tablet) 100 mg PO Q6H PRN PRN Reason: Pain Stop: 08/07/22 14:55 Last Admin: 07/11/22 20:49 Dose: 100 mg Mental Health & Subst Abuse Tx Psychiatrist Name of Psychiatrist: Nayely Null Psychiatrist's Date of Appointment with Psychiatrist: 07/23/22 Time of Appointment with Psychiatrist: 10am Psychiatric Appointment Comment: [address] [place], [place] Therapist Name of Therapist: Nayely Null- Juan Therapist's Date of Therapist Appointment: 07/14/22 Time of Therapist Appointment: 3pm Therapy Appointment Comment: [address] [place], [place] Php Lamp Developer Name of Php Lamp Developer: [facility] JERED/IDEddie Keating Phone Number for Php Lamp Developer: [phone] Time of Appointment with Php Lamp Developer: continued scheduled meetings as usual Post Discharge Appointments Primary Care Physician Name Of Family Doctor: Nayely Mcpherson Primary Care Time of Appointment with PCP: please follow up as needed Provider Appointment Comment: [address] [place], [place] Waste Elimination Name of Waste Elimination: Kris Time of Appointment with Waste Elimination: contunue regular schedule as usual Specialist Name of Specialist: [facility] Phone Number for Specialist: Date of Appointment with Specialist: 07/16/22 Time of Appointment with Specialist: 11am Specialty Appointment Comment: [address], [place] [address] Contact Information Discharge Discharge Address: [address] [place] [id number]
[2022-07-12] MEDS: TOPIRAMATE 25 MG TAB PO SCH (09:37)
[2022-07-12] MEDS: ESCITALOPRAM OXALATE 20 MG TAB PO SCH (09:37)
[2022-07-12] MEDS: lamoTRIgine 25 MG TAB PO SCH (09:37)
[2022-07-12] MEDS: traMADol HCL 50 MG TABLET PO PRN (10:49)
[2022-07-12] MEDS: hydrOXYzine HCl 25 MG TAB PO PRN (17:32)
[2022-07-12] MEDS: OLANZAPINE 2.5 MG TAB PO SCH (21:08)
[2022-07-13 08:39] LABS: Chol HDL Ratio 4.3 (0-5)
--- NOTE | 2022-07-13 09:08 | Psychiatric Progress Note ---
Date of Service July 13, 2022 Impression / Recommendations Impression 21 yo female with a history of a variety of diagnoses (PTSD, bipolar do, psychosis) currently having SI in the context of post op pain and limited social support. Diagnostically consistent with major depressive episode versus bipolar depression. She is deemed unstable and requires psychiatric hospitalization for diagnostic clarification, safety and stabilization, medication management and development of further coping skills. MNPR due to wound, limited coping at this time 07/13/22: Remains severely depressed with SI, tearfulness, and isolative to her room at times. Reviewed fasting lipid panel which is normal with exception of low HDL. Will decrease olanzapine to see if this helps reduce daytime fatigue. Ongoing challenge of very limited psychosocial supports during holiday season which adds to her sense of loneliness and isolation. (1) Depression with suicidal ideation: (2) S/P ACL reconstruction: Plan 07/13/22: Decrease olanzapine to 5mg hs. 07/12/22: Continue current medications and tx plan. Recheck fasting lipid panel given she remains on abilify and olanzapine with 22 lb weight gain since last admission in January 2022. 07/11/22: continue current meds and tx plan. 07/10/22: Risks/benefits/alternatives reviewed re: Lamictal for mood stabilization. Discussion included but was not limited to slow titration to decrease risks of Kyle's Taran syndrome. Patient agrees to hold med/notify current prescriber of rash immediately. Patient is essentially a restart as couldn't lease picker script after rehab. First dose yesterday. 07/09/22: There is now a report of patient taking lamictal and CM states plan was for titration, records pending. Last rx appears to be early May. 07/08/22: The patient was admitted to the [facility] ([facility] mental health unit) on q15 min checks (behavioral with suicide precautions) for safety. The patient will participate in group, recreational, and milieu therapies and will be offered additional individual and family sessions as clinically appropriate. Risks/benefits/alternatives reviewed re: current medications. Will confirm date of last Abilify injection. Inventory Assets Strengths: accepting of services, follows crisis protocols Needs: post op care, improve coping Suicide Risk Level Suicide Risk Level: High-Moderate (q15 min suicide checks) (severe depression with SI with plan prior to admission, feels safe in hospital and agrees to alert nursing should she feel unable to remain safe or should SI intensify to point of plan or intent for in hospital ) Risk Factors Assessment : Yes Do You Have Access To A Gun?: No Health Problems: Yes Mental Health Diagnoses: Yes Substance Use Disorders: No Previous Psychiatric Hospitalization: Yes Protective Factors Assessment Employed: No Stable Relationships: Yes Good Rapport with Provider: Yes Interval History Identifying Information BAUTISTA ALLRED is a 21-year-old F from [place], extensive psych hx, was admitted on 07/08/22 13:48 on a 201 voluntary commitment for SI. Chief Complaint "I'm really tired". Review of Systems Sleep Information Total Hours of Sleep: 5.5 Meal Information Percent Meal Consumed - Breakfast: 90 Percent Meal Consumed - Lunch: 100 Percent Meal Consumed - Dinner: 100 Subjective Subjective Patient was seen & assessed and interval progress reviewed with treatment team nursing and social work. Very tearful suddenly during dinner last night with possible brief visual hallucination and got dose of prn Vistaril. Remains easily tearful during discussions all day with providers, SW, nursing. Isolative to her room intermittently, tells me this is due to feeling tired, even though reports good sleep last night, and due to depression with ongoing SI. Reviewed that she feels this time of year is very difficult as she is all alone for the holidays. Some knee pain today but feels tramadol is helping. Physical Exam Psychiatric Orientation: alert and oriented x 3 Apperance: appropriately dressed and appropriately groomed Eye Contact: good eye contact and + fair eye contact Motor Behavior: no abnormal motor movements ((just gait shift due to surgery)) Speech: normal rate/rhythm/volume of speech Affect: + depressed affect, + flat affect and + tearful affect Mood: + depressed mood Thought Process: + concrete thought process Thought Content: reality based without delusions Suicidal Thoughts: denies suicidal thoughts (intermittent) and denies suicidal intent; + reports suicidal plan (OD on meds outside the hospital) Homicidal Thoughts: denies homicidal thoughts Hallucinations: no auditory hallucinations and no visual hallucinations Cognition: attention grossly intact and language grossly intact Estimated Intelligence: consistent with education level Insight: + limited insight Judgement: + limited judgement Vital Signs (Past 24 Hours) Last Vital Signs Temp 37.1 C 07/13/22 06:00 Pulse 106 H 07/13/22 06:49 Resp 18 12/11/22 06:00 BP 121/78 07/13/22 06:49 Pulse Ox 97 07/13/22 06:00 O2 Del Method 07/13/22 06:00 Results & Data ([facility]) Laboratory Results Laboratory Results - last 24 hr 07/13/22 07:47 Triglycerides 132 Cholesterol 145 LDL Cholesterol, Calc 85 VLDL Cholesterol, Calc 26 HDL Cholesterol 34 Cholesterol/HDL Ratio 4.3 Current Inpatient Medications Current Inpatient Medications: Current Inpatient Medications Acetaminophen (Acetaminophen 325 Mg Tab) 650 mg PO Q4H PRN PRN Reason: Headache or Minor Fever Stop: 08/07/22 13:47 Al Hydrox/Mg Hydrox/Simethicone (Aluminum/Magnesium Susp 30 Ml Udc) 30 ml PO Q4H PRN PRN Reason: GI Upset Stop: 08/07/22 13:47 Bismuth Subsalicylate (Bismuth Subsalicylate Liqd 236 Ml) 15 ml PO PRN PRN PRN Reason: Loose Stool Stop: 08/07/22 13:47 Last Admin: 07/09/22 07:54 Dose: 15 ml Escitalopram Oxalate (Escitalopram Oxalate 20 Mg Tab) 20 mg PO QAM IFEOMA Stop: 08/08/22 08:59 Last Admin: 07/12/22 09:37 Dose: 20 mg Hydroxyzine HCl (Hydroxyzine Hcl 25 Mg Tab) 50 mg PO HSZ PRN PRN Reason: Insomnia Stop: 08/07/22 13:47 Hydroxyzine HCl (Hydroxyzine Hcl 25 Mg Tab) 25 mg PO Q4H PRN PRN Reason: Anxiety Stop: 08/07/22 13:47 Last Admin: 07/12/22 17:32 Dose: 25 mg Lamotrigine (Lamotrigine 25 Mg Tab) 25 mg PO QAM IFEOMA Stop: 08/08/22 13:59 Last Admin: 07/12/22 09:37 Dose: 25 mg Magnesium Hydroxide (Magnesium Hydroxide Susp 30 Ml Udc) 30 ml PO DAILY PRN PRN Reason: Constipation Stop: 08/07/22 13:47 Olanzapine (Olanzapine 2.5 Mg Tab) 7.5 mg PO HS IFEOMA Stop: 08/07/22 21:59 Last Admin: 07/12/22 21:08 Dose: 7.5 mg Ondansetron HCl (Ondansetron 4 Mg Od Tab) 4 mg PO Q6H PRN PRN Reason: nausea and vomiting Stop: 08/07/22 14:35 Sodium Chloride (Sodium Chloride 0.65% Na Soln 45 Ml ([place])) 1 - 2 sprays NA PRN PRN PRN Reason: Nasal Dryness/Congestion Stop: 08/07/22 13:47 Topiramate (Topiramate 25 Mg Tab) 25 mg PO QAM IFEOMA Stop: 08/08/22 08:59 Last Admin: 07/12/22 09:37 Dose: 25 mg Tramadol HCl (Tramadol Hcl 50 Mg Tablet) 100 mg PO Q6H PRN PRN Reason: Pain Stop: 08/07/22 14:55 Last Admin: 07/12/22 10:49 Dose: 100 mg Mental Health & Subst Abuse Tx Psychiatrist Name of Psychiatrist: Nayely Null Psychiatrist's Date of Appointment with Psychiatrist: 07/23/22 Time of Appointment with Psychiatrist: 10am Psychiatric Appointment Comment: [address] [place], [place] Therapist Name of Therapist: Nayely Martinez Therapist's Date of Therapist Appointment: 07/14/22 Time of Therapist Appointment: 3pm Therapy Appointment Comment: [address] [place], [place] Public Health Administrator Name of Public Health Administrator: Maggie LAWTON/IDEddie Keating Phone Number for Public Health Administrator: [phone] Time of Appointment with Public Health Administrator: continued scheduled meetings as usual Post Discharge Appointments Primary Care Physician Name Of Family Doctor: Nayely Mcpherson Primary Care Time of Appointment with PCP: please follow up as needed Provider Appointment Comment: [address] [place], [place] Security Engineer Name of Security Engineer: Kris Time of Appointment with Security Engineer: contunue regular schedule as usual Specialist Name of Specialist: [facility] Phone Number for Specialist: Date of Appointment with Specialist: 07/16/22 Time of Appointment with Specialist: 11am Specialty Appointment Comment: [address], [place] [address] Contact Information Discharge Discharge Address: [address] [place], [place] [id number]
[2022-07-13] MEDS: lamoTRIgine 25 MG TAB PO SCH (09:18)
[2022-07-13] MEDS: ESCITALOPRAM OXALATE 20 MG TAB PO SCH (09:18)
[2022-07-13] MEDS: TOPIRAMATE 25 MG TAB PO SCH (09:19)
[2022-07-13] MEDS: ACETAMINOPHEN 325 MG TAB PO PRN (12:38)
[2022-07-13] MEDS: traMADol HCL 50 MG TABLET PO PRN (17:02)
[2022-07-13] MEDS: hydrOXYzine HCl 25 MG TAB PO PRN (17:02)
[2022-07-13] MEDS: OLANZapine 5 MG TABLET PO SCH (22:03)
[2022-07-14] MEDS: traMADol HCL 50 MG TABLET PO PRN (04:39)
--- NOTE | 2022-07-14 08:59 | Psychiatric Progress Note ---
Date of Service July 14, 2022 Impression / Recommendations Impression 21 yo female with a history of a variety of diagnoses (PTSD, bipolar do, psychosis) currently having SI in the context of post op pain and limited social support. Diagnostically consistent with major depressive episode versus bipolar depression. She is deemed unstable and requires psychiatric hospitalization for diagnostic clarification, safety and stabilization, medication management and development of further coping skills. MNPR due to wound, limited coping at this time 07/14/22: Mood improving today, even with less sleep last night but not as tired today. Monitor to ensure ongoing trend toward improvement and stability. No new medication side effects. Re-engaged with her boyfriend last night by calling him and making more future-oriented plans. (1) Depression with suicidal ideation: (2) S/P ACL reconstruction: Plan 07/14/22: Continue with current medications and tx plan. 07/13/22: Decrease olanzapine to 5mg hs. 07/12/22: Continue current medications and tx plan. Recheck fasting lipid panel given she remains on abilify and olanzapine with 22 lb weight gain since last admission in January 2022. 07/11/22: continue current meds and tx plan. 07/10/22: Risks/benefits/alternatives reviewed re: Lamictal for mood stabilization. Discussion included but was not limited to slow titration to decrease risks of Kyle's Taran syndrome. Patient agrees to hold med/notify current prescriber of rash immediately. Patient is essentially a restart as couldn't quill picking machine operator script after rehab. First dose yesterday. 07/09/22: There is now a report of patient taking lamictal and CM states plan was for titration, records pending. Last rx appears to be early May. 07/08/22: The patient was admitted to the [facility] ([facility] mental health unit) on q15 min checks (behavioral with suicide precautions) for safety. The patient will participate in group, recreational, and milieu therapies and will be offered additional individual and family sessions as clinically appropriate. Risks/benefits/alternatives reviewed re: current medications. Will confirm date of last Abilify injection. Inventory Assets Strengths: accepting of services, follows crisis protocols Needs: post op care, improve coping Suicide Risk Level Suicide Risk Level: Moderate (q15 min suicide checks) (severe depression with SI with plan prior to admission, now mood improving and denies SI and feels safe in hospital and agrees to alert nursing should she feel unable to remain safe or should SI intensify to point of plan or intent for in hospital ) Risk Factors Assessment : Yes Do You Have Access To A Gun?: No Health Problems: Yes Mental Health Diagnoses: Yes Substance Use Disorders: No Previous Psychiatric Hospitalization: Yes Protective Factors Assessment Employed: No Stable Relationships: Yes Good Rapport with Provider: Yes Interval History Identifying Information BAUTISTA ALLRED is a 21-year-old F from [place], extensive psych hx, was admitted on 07/08/22 13:48 on a 201 voluntary commitment for SI. Chief Complaint "I'm feeling better today". Review of Systems Sleep Information Total Hours of Sleep: 4.5 Sleep Comments: Tramadol for pain @ 0430ish for foot pain and swelling Meal Information Percent Meal Consumed - Breakfast: 100 Percent Meal Consumed - Lunch: 100 Percent Meal Consumed - Dinner: 100 Subjective Subjective Patient was seen & assessed and interval progress reviewed with treatment team nursing and social work. Had support meeting this morning. Tells me her mood is improving today and denies SI. She attributes this to the slight reduction in olanzapine telling me "I think the medications are working". In discussion she also describes talking to her boyfriend on the phone last night and discussing spending time together later this week and celebrating [place] which seems to be improving her mood and hopefulness. She isn't sure if this is related but is glad she isn't feeling as lonely. Elevating her foot due to some mild swelling. Feels she slept well with exception of needing medication for foot pain. Physical Exam Psychiatric Orientation: alert and oriented x 3 Apperance: appropriately dressed and appropriately groomed Eye Contact: good eye contact and + fair eye contact Motor Behavior: no abnormal motor movements (just gait shift due to surgery) Speech: normal rate/rhythm/volume of speech Affect: euthymic affect Mood: + depressed mood Thought Process: + concrete thought process Thought Content: reality based without delusions Suicidal Thoughts: denies suicidal thoughts, denies suicidal plan and denies suicidal intent Homicidal Thoughts: denies homicidal thoughts Hallucinations: no auditory hallucinations and no visual hallucinations Cognition: attention grossly intact and language grossly intact Estimated Intelligence: consistent with education level Insight: + limited insight Judgement: + limited judgement Vital Signs (Past 24 Hours) Last Vital Signs Temp 36.8 C 07/14/22 06:36 Pulse 93 H 07/14/22 06:36 Resp 16 07/14/22 06:36 BP 98/63 L 07/14/22 06:36 Pulse Ox 97 07/13/22 06:00 O2 Del Method 07/13/22 06:00 Results & Data ([facility]) Current Inpatient Medications Current Inpatient Medications: Current Inpatient Medications Acetaminophen (Acetaminophen 325 Mg Tab) 650 mg PO Q4H PRN PRN Reason: Headache or Minor Fever Stop: 08/07/22 13:47 Last Admin: 07/13/22 12:38 Dose: 650 mg Al Hydrox/Mg Hydrox/Simethicone (Aluminum/Magnesium Susp 30 Ml Udc) 30 ml PO Q4H PRN PRN Reason: GI Upset Stop: 08/07/22 13:47 Bismuth Subsalicylate (Bismuth Subsalicylate Liqd 236 Ml) 15 ml PO PRN PRN PRN Reason: Loose Stool Stop: 08/07/22 13:47 Last Admin: 07/09/22 07:54 Dose: 15 ml Escitalopram Oxalate (Escitalopram Oxalate 20 Mg Tab) 20 mg PO QAM IFEOMA Stop: 08/08/22 08:59 Last Admin: 07/13/22 09:18 Dose: 20 mg Hydroxyzine HCl (Hydroxyzine Hcl 25 Mg Tab) 50 mg PO HSZ PRN PRN Reason: Insomnia Stop: 08/07/22 13:47 Hydroxyzine HCl (Hydroxyzine Hcl 25 Mg Tab) 25 mg PO Q4H PRN PRN Reason: Anxiety Stop: 08/07/22 13:47 Last Admin: 07/13/22 17:02 Dose: 25 mg Lamotrigine (Lamotrigine 25 Mg Tab) 25 mg PO QAM IFEOMA Stop: 08/08/22 13:59 Last Admin: 07/13/22 09:18 Dose: 25 mg Magnesium Hydroxide (Magnesium Hydroxide Susp 30 Ml Udc) 30 ml PO DAILY PRN PRN Reason: Constipation Stop: 08/07/22 13:47 Olanzapine (Olanzapine 5 Mg Tablet) 5 mg PO HS IFEOMA Stop: 08/12/22 21:59 Last Admin: 07/13/22 22:03 Dose: 5 mg Ondansetron HCl (Ondansetron 4 Mg Od Tab) 4 mg PO Q6H PRN PRN Reason: nausea and vomiting Stop: 08/07/22 14:35 Sodium Chloride (Sodium Chloride 0.65% Na Soln 45 Ml ([place])) 1 - 2 sprays NA PRN PRN PRN Reason: Nasal Dryness/Congestion Stop: 08/07/22 13:47 Topiramate (Topiramate 25 Mg Tab) 25 mg PO QAM IFEOMA Stop: 08/08/22 08:59 Last Admin: 07/13/22 09:19 Dose: 25 mg Tramadol HCl (Tramadol Hcl 50 Mg Tablet) 100 mg PO Q6H PRN PRN Reason: Pain Stop: 08/07/22 14:55 Last Admin: 07/14/22 04:39 Dose: 100 mg Mental Health & Subst Abuse Tx Psychiatrist Name of Psychiatrist: Nayely Null Psychiatrist's Date of Appointment with Psychiatrist: 07/23/22 Time of Appointment with Psychiatrist: 10am Psychiatric Appointment Comment: [address] [place], [place] Therapist Name of Therapist: Nayely Martinez Therapist's Date of Therapist Appointment: 07/14/22 Time of Therapist Appointment: 3pm Therapy Appointment Comment: [address] [place], [place] Laundry Press Operator Name of Laundry Press Operator: [facility]/ID-Rivka Keating Phone Number for Laundry Press Operator: [phone] Time of Appointment with Laundry Press Operator: continued scheduled meetings as usual Post Discharge Appointments Primary Care Physician Name Of Family Doctor: Nayely Mcpherson Primary Care Time of Appointment with PCP: please follow up as needed Provider Appointment Comment: [address] [place], [place] Vice President Of Software Development Name of Vice President Of Software Development: Kris Time of Appointment with Vice President Of Software Development: contunue regular schedule as usual Specialist Name of Specialist: [facility] Phone Number for Specialist: Date of Appointment with Specialist: 07/16/22 Time of Appointment with Specialist: 11am Specialty Appointment Comment: [address], [place] [address] Contact Information Discharge Discharge Address: [address] [place] [id number]
[2022-07-14] MEDS: ESCITALOPRAM OXALATE 20 MG TAB PO SCH (09:25)
[2022-07-14] MEDS: TOPIRAMATE 25 MG TAB PO SCH (09:26)
[2022-07-14] MEDS: lamoTRIgine 25 MG TAB PO SCH (09:26)
[2022-07-14] MEDS: hydrOXYzine HCl 25 MG TAB PO PRN (15:33)
[2022-07-14] MEDS: OLANZapine 5 MG TABLET PO SCH (20:41)
[2022-07-15] MEDS: lamoTRIgine 25 MG TAB PO SCH (08:01)
[2022-07-15] MEDS: ESCITALOPRAM OXALATE 20 MG TAB PO SCH (08:01)
[2022-07-15] MEDS: TOPIRAMATE 25 MG TAB PO SCH (08:02)
[2022-07-15] MEDS: hydrOXYzine HCl 25 MG TAB PO PRN ×2 (08:40→15:46)
[2022-07-15] MEDS: traMADol HCL 50 MG TABLET PO PRN (10:52)
[2022-07-15] MEDS: busPIRone 5 MG TAB PO SCH ×2 (12:19→21:36)
--- NOTE | 2022-07-15 13:34 | Psychiatric Progress Note ---
Date of Service July 15, 2022 Impression / Recommendations Impression 21 yo female with a history of a variety of diagnoses (PTSD, bipolar do, psychosis) currently having SI in the context of post op pain and limited social support. Diagnostically consistent with major depressive episode versus bipolar depression. She is deemed unstable and requires psychiatric hospitalization for diagnostic clarification, safety and stabilization, medication management and development of further coping skills. MNPR due to wound, limited coping at this time 07/15/22: Increased anxiety in context of discussions about transitioning out of the hospital. Sleep improved last night. Reviewed coping skills and ways to built more protective factors/supports in the community which she motivated to do such as finding a place to volunteer. Unclear what is causing visual hallucinations but seem most likely to be due to migraine aura versus anxiety, no signs of psychotic process contributing. Discussed medication treatment options and risks, benefits and alternatives. Patient would like to start and consented to buspar for anxiety. Reviewed side effects including but not limited to: dizziness, fatigue. (1) Depression with suicidal ideation: (2) S/P ACL reconstruction: Plan 07/15/22: Start buspar 5mg BID po. 07/14/22: Continue with current medications and tx plan. 07/13/22: Decrease olanzapine to 5mg hs. 07/12/22: Continue current medications and tx plan. Recheck fasting lipid panel given she remains on abilify and olanzapine with 22 lb weight gain since last admission in January 2022. 07/11/22: continue current meds and tx plan. 07/10/22: Risks/benefits/alternatives reviewed re: Lamictal for mood stabilization. Discussion included but was not limited to slow titration to decrease risks of Kyle's Taran syndrome. Patient agrees to hold med/notify current prescriber of rash immediately. 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 First dose yesterday. 07/09/22: There is now a report of patient taking lamictal and CM states plan was for titration, records pending. Last rx appears to be early May. 07/08/22: The patient was admitted to the [facility] ([facility]) on q15 min checks (behavioral with suicide precautions) for safety. The patient will participate in group, recreational, and milieu therapies and will be offered additional individual and family sessions as clinically appropriate. Risks/benefits/alternatives reviewed re: current medications. Will confirm date of last Abilify injection. Inventory Assets Strengths: accepting of services, follows crisis protocols Needs: post op care, improve coping Suicide Risk Level Suicide Risk Level: Moderate (q15 min suicide checks) (severe depression with SI with plan prior to admission, now mood improving and denies SI and feels safe in hospital and agrees to alert nursing should she feel unable to remain safe or should SI intensify to point of plan or intent for in hospital ) Risk Factors Assessment : Yes Do You Have Access To A Gun?: No Health Problems: Yes Mental Health Diagnoses: Yes Substance Use Disorders: No Previous Psychiatric Hospitalization: Yes Protective Factors Assessment Employed: No Stable Relationships: Yes Good Rapport with Provider: Yes Interval History Identifying Information BAUTISTA ALLRED is a 21-year-old F from [place], extensive psych hx, was admitted on 07/08/22 13:48 on a 201 voluntary commitment for SI. Chief Complaint "It's going to be really hard to be home alone". Review of Systems Sleep Information Total Hours of Sleep: 7.25 Sleep Comments: Meal Information Percent Meal Consumed - Breakfast: 100 Percent Meal Consumed - Lunch: 100 Percent Meal Consumed - Dinner: 50 Subjective Subjective Patient was seen & assessed and interval progress reviewed with treatment team nursing and social work. Bautista was anxious yesterday afternoon describing seeing shadows. This morning again with high levels of anxiety and tearful when describing concerns about being home with the type of support she has in the hospital. Discussed with her supports she does have like her outpatient providers and her boyfriend which she agrees are helpful. She identifies visual hallucinations as sometimes seeing shadows and often accompanied by a headache or fluttering at the edge of her vision. Reviewed possibility these could be due to migraines versus anxiety. She agrees to track her headaches to see if visual changes could be aura-type phenomenon. Is interested in an additional medication to help with anxiety. Started buspar and by afternoon she felt it was offering significant benefit. Physical Exam Psychiatric Orientation: alert and oriented x 3 Apperance: appropriately dressed and appropriately groomed Eye Contact: good eye contact and + fair eye contact Motor Behavior: no abnormal motor movements (just gait shift due to surgery) Speech: normal rate/rhythm/volume of speech Affect: + depressed affect, + anxious affect and + tearful affect Mood: + depressed mood and + anxious mood Thought Process: + concrete thought process Thought Content: reality based without delusions Suicidal Thoughts: denies suicidal thoughts, denies suicidal plan and denies suicidal intent Homicidal Thoughts: denies homicidal thoughts Hallucinations: no auditory hallucinations and no visual hallucinations Cognition: attention grossly intact and language grossly intact Estimated Intelligence: consistent with education level Insight: + limited insight Judgement: + limited judgement Vital Signs (Past 24 Hours) Last Vital Signs Temp 36.9 C 07/15/22 06:34 Pulse 120 H 07/15/22 06:35 Resp 16 07/15/22 06:34 BP 123/77 07/15/22 06:35 Pulse Ox 97 07/13/22 06:00 O2 Del Method 07/13/22 06:00 Results & Data ([facility]) Current Inpatient Medications Current Inpatient Medications: Current Inpatient Medications Acetaminophen (Acetaminophen 325 Mg Tab) 650 mg PO Q4H PRN PRN Reason: Headache or Minor Fever Stop: 08/07/22 13:47 Last Admin: 07/13/22 12:38 Dose: 650 mg Al Hydrox/Mg Hydrox/Simethicone (Aluminum/Magnesium Susp 30 Ml Udc) 30 ml PO Q4H PRN PRN Reason: GI Upset Stop: 08/07/22 13:47 Bismuth Subsalicylate (Bismuth Subsalicylate Liqd 236 Ml) 15 ml PO PRN PRN PRN Reason: Loose Stool Stop: 08/07/22 13:47 Last Admin: 07/09/22 07:54 Dose: 15 ml Buspirone HCl (Buspirone 5 Mg Tab) 5 mg PO BID [facility] Stop: 08/14/22 11:29 Last Admin: 07/15/22 12:19 Dose: 5 mg Escitalopram Oxalate (Escitalopram Oxalate 20 Mg Tab) 20 mg PO QAM IFEOMA Stop: 08/08/22 08:59 Last Admin: 07/15/22 08:01 Dose: 20 mg Hydroxyzine HCl (Hydroxyzine Hcl 25 Mg Tab) 50 mg PO HSZ PRN PRN Reason: Insomnia Stop: 08/07/22 13:47 Hydroxyzine HCl (Hydroxyzine Hcl 25 Mg Tab) 25 mg PO Q4H PRN PRN Reason: Anxiety Stop: 08/07/22 13:47 Last Admin: 07/15/22 08:40 Dose: 25 mg Lamotrigine (Lamotrigine 25 Mg Tab) 25 mg PO QAM IFEOMA Stop: 08/08/22 13:59 Last Admin: 07/15/22 08:01 Dose: 25 mg Magnesium Hydroxide (Magnesium Hydroxide Susp 30 Ml Udc) 30 ml PO DAILY PRN PRN Reason: Constipation Stop: 08/07/22 13:47 Olanzapine (Olanzapine 5 Mg Tablet) 5 mg PO HS IFEOMA Stop: 08/12/22 21:59 Last Admin: 07/14/22 20:41 Dose: 5 mg Ondansetron HCl (Ondansetron 4 Mg Od Tab) 4 mg PO Q6H PRN PRN Reason: nausea and vomiting Stop: 08/07/22 14:35 Sodium Chloride (Sodium Chloride 0.65% Na Soln 45 Ml (Mason)) 1 - 2 sprays NA PRN PRN PRN Reason: Nasal Dryness/Congestion Stop: 08/07/22 13:47 Topiramate (Topiramate 25 Mg Tab) 25 mg PO QAM IFEOMA Stop: 08/08/22 08:59 Last Admin: 07/15/22 08:02 Dose: 25 mg Tramadol HCl (Tramadol Hcl 50 Mg Tablet) 100 mg PO Q6H PRN PRN Reason: Pain Stop: 08/07/22 14:55 Last Admin: 07/15/22 10:52 Dose: 100 mg Mental Health & Subst Abuse Tx Psychiatrist Name of Psychiatrist: Nayely Randall Psychiatrist's Date of Appointment with Psychiatrist: 08/08/21 Time of Appointment with Psychiatrist: 11 AM Psychiatric Appointment Comment: [address] [place], [place] Therapist Name of Therapist: Nayely Martinez Therapist's Date of Therapist Appointment: 07/17/22 Time of Therapist Appointment: 9 am Therapy Appointment Comment: [address] [place], [place] Dye Tank Tender Name of Dye Tank Tender: Maggie LAWTON/Chaparrita Keating Phone Number for Dye Tank Tender: [phone] Time of Appointment with Dye Tank Tender: continued scheduled meetings as usual Post Discharge Appointments Primary Care Physician Name Of Family Doctor: Nayely Mcpherson Primary [facility] Date of Appointment with PCP: 07/23/22 Time of Appointment with PCP: 10 AM Provider Appointment Comment: [address] [place], [place] [employer]ator [employer] Name of Curator [employer]: Kris Time of Appointment with Curator [employer]: emperatriz regular schedule as usual Specialist Name of Specialist: [facility] Phone Number for Specialist: Date of Appointment with Specialist: 07/16/22 Time of Appointment with Specialist: 11am Specialty Appointment Comment: [address], [place] [address] Contact Information Discharge Discharge Address: [address] [place] [address] [id number]
[2022-07-15] MEDS: ACETAMINOPHEN 325 MG TAB PO PRN (19:04)
[2022-07-15] MEDS: OLANZapine 5 MG TABLET PO SCH (21:36)
[2022-07-16] MEDS: lamoTRIgine 25 MG TAB PO SCH (08:47)
[2022-07-16] MEDS: ESCITALOPRAM OXALATE 20 MG TAB PO SCH (08:47)
[2022-07-16] MEDS: TOPIRAMATE 25 MG TAB PO SCH (08:47)
[2022-07-16] MEDS: busPIRone 5 MG TAB PO SCH (08:47)
--- NOTE | 2022-07-16 09:16 | Discharge Summary ---
Date of Service July 16, 2022 History of Present Illness Patient was last seen by our service in late May, she was housed on the medical floor for SI due to COVID+. Since that time she has continued to follow up with multiple community services. She reports she was doing relatively well until her ACL surgery 06/25/22. Since that time she was seen in the ED on 07/04 for breakthrough pain with fleeting thoughts to OD on pain pills. The patient represented yesterday pm with Recycling Operations Manager and stated the thoughts were more persistent despite switch and did report some visual phenomena/jaimes of flashing light on the ceiling with sensitivity to light causing a LOUIS (?side effect of tramadol). Patient denies other symptoms of serotonin syndrome and appears bright and interactive on arrival to the unit. She denies complaints other than pain at surgical site at this time. She denies any intent or plan to harm herself on our unit. Physical Exam Vital Signs (Past 24 Hours) Last Vital Signs Temp 36.9 C 07/16/22 07:36 Pulse 96 H 07/16/22 07:36 Resp 16 07/16/22 07:36 BP 133/80 07/16/22 07:36 Pulse Ox 97 07/16/22 07:36 O2 Del Method 07/13/22 06:00 See admission H&P and DOD summary. Principal Diagnosis Major Depressive Disorder Psychiatric Data See daily stay summary. In short, patient was engaged with the social/therapeutic milieu of the unit, safety was maintained and the patient was cooperative with care. Medication changes included re-initiation of lamictal, dose reduction of olanzapine due to dayime fatigue and initiation of Buspar for anxiety and they tolerated this well. Baseline labs of fasting glucose, fasting lipid profile, and weight were preformed and WNL with exception of elevated fasting glucose (112 mg/dl) elevated BMI. Recommend repeat weight, fasting glucose and HbA1c in one month. Recommend goal of tapering olanzapine to disco ntinuation over the next 1-2 months as lamictal takes effect for mood stabilization and given ongoing use of abilify MORELOS. A support session was held and safety plan was completed prior to discharge. She participated in safety planning and in discussions about ways to seek support and recognizing warning signs and utilizing coping skills. Reviewed importance of seeking emergency care should SI intensify, worsen or should they feel unsafe in the future which they agree to do. On the day of discharge she stated her mood was "I feel great and I'm ready to go home" and remained future- oriented including spending time with her boyfriend,coloring, listening to music, seeing her cat and engaging in aftercare appointments for psychiatry, therapy, case management and orthopedics. Day of Discharge Assessment Today the patient voices readiness for discharge. They note improvement in mood and anxiety. They deny thoughts of harm to self or others. Thoughts are organized and they are clinically improved from admission. There is no evidence of psychosis. They improved in the hospital with support and medication adjustments. They agree to take medications as prescribed and keep follow-up appointments. At the time of the discharge they are deemed to be stable and appropriate for outpatient level of care. They are not deemed to be at imminent risk of harm to self or others. They are aware of emergency and crisis services. Knows to call 911 or go to nearest emergency care center if in a crisis which cannot be handled as an outpatient. Transition of Care Transition Of Care Record: was reviewed with the patient Advance Directives Advance Directives Information Provided: Yes Advance Directives: No Mental Health Advance Directive: No Advance Directives on File: No Living Will: No Power of Bath Mix Operator: No Advance Directives Reason:: Declines as Mental Health Visit. Suicide Risk Level Suicide Risk Level Comments: Acute risk is low given improvement in mood and denial of SI, lack of access to lethal means, improvement in sleep, hopefulness. Chronic risk is moderate given multiple non-modifiable risk factors including psychiatric co-morbid diagnoses, periods of impulsivity, prior attempt, emotional reactivity, prior psychiatric hospitalizations, poor social support, mood disorder, childhood trauma but also with protective factors including good potential for establishing positive rapport, boyfriend, outpatient providers, and desire to engage with more outpatient activities like volunteering. Counseled on ways to reduce acute and chronic risk including engaging with outpatient providers, using safety plan if needed, utilizing supports, taking medication, and using coping skills. Modifiable risk factors of SI and depression were addressed during hospitalization through development of new coping skills, family meeting, safety planning, and medication adjustments Encourage Hope and her outpatient team to find additional ways to get her involved in community groups through volunteeri ng or a part-time job. Risk Factors Assessment : Yes Do You Have Access To A Gun?: No Health Problems: Yes Mental Health Diagnoses: Yes Substance Use Disorders: No Previous Attempt: Yes Family History of Suicide: No Previous Psychiatric Hospitalization: Yes Hopelessness: No Protective Factors Assessment Employed: No Stable Relationships: Yes Good Rapport with Provider: Yes Antipsychotic Medications She has had three prior failed trials of antipsychotic monotherapy and recommendation is for ongoing cross-taper of olanzapine (this was started in the hospital) with goal of Abilify monotherapy. Discharge Data Lab Results 07/07/22 07/07/22 07/07/22 18:38 18:38 18:38 WBC 8.96 RBC 4.24 Hgb 12.4 Hct 37.3 MCV 88.0 MCH 29.2 MCHC 33.2 RDW Std Deviation 45.6 RDW Coeff of Anali 14.1 Plt Count 721 H MPV 9.3 L Immature Gran % (Auto) 0.6 Neut % (Auto) 68.5 Lymph % (Auto) 20.9 Hubbard % (Auto) 8.6 Eos % (Auto) 1.1 Baso % (Auto) 0.3 Neut # (Auto) 6.14 Lymph # (Auto) 1.87 Hubbard # (Auto) 0.77 Eos # (Auto) 0.10 Baso # (Auto) 0.03 Immature Gran # (Auto) 0.05 H Sodium 141 Potassium 3.6 Chloride 106 Carbon Dioxide 22 Anion Gap 13 H BUN 16 Creatinine 0.76 Est Cr Clr Drug Dosing 106.0 Est GFR ( Amer) 130.0 Est GFR (Non-Af Amer) 112.1 BUN/Creatinine Ratio 21.1 H Glucose 112 H Calcium 9.3 Total Bilirubin 0.3 AST 17 ALT 18 Alkaline Phosphatase 72 Total Protein 7.5 Albumin 3.9 Globulin 3.6 Albumin/Globulin Ratio 1.1 Triglycerides Cholesterol LDL Cholesterol, Calc VLDL Cholesterol, Calc HDL Cholesterol Cholesterol/HDL Ratio TSH 3.687 Urine Color Urine Appearance Urine pH Ur Specific Towson Urine Protein Urine Glucose (UA) Urine Ketones Urine Blood Urine Nitrite Urine Bilirubin Urine Urobilinogen Ur Leukocyte Esterase Urine WBC (Auto) Urine RBC (Auto) U Hyaline Cast (Auto) U Epithel Cells (Auto) Urine Bacteria (Auto) Urine Crystals Calcium Oxalate Crystal Urine Yeast Urine Test Salicylates Urine Opiates Screen Ur Methadone, Qual Acetaminophen Urine Barbiturates Ur Phencyclidine (PCP) U Amphetamin/Meth Scrn MDMA (Ecstasy) Screen U Benzodiazepines Scrn Ur Cocaine Metabolite U Marijuana (THC) Screen Ethyl Alcohol mg/dL SARS-CoV-2, RNA, NAAT 07/07/22 07/07/22 07/07/22 18:38 18:38 18:38 WBC RBC Hgb Hct MCV MCH MCHC RDW Std Deviation RDW Coeff of Anali Plt Count MPV Immature Gran % (Auto) Neut % (Auto) Lymph % (Auto) Hubbard % (Auto) Eos % (Auto) Baso % (Auto) Neut # (Auto) Lymph # (Auto) Hubbard # (Auto) Eos # (Auto) Baso # (Auto) Immature Gran # (Auto) Sodium Potassium Chloride Carbon Dioxide Anion Gap BUN Creatinine Est Cr Clr Drug Dosing Est GFR ( Amer) Est GFR (Non-Af Amer) BUN/Creatinine Ratio Glucose Calcium Total Bilirubin AST ALT Alkaline Phosphatase Total Protein Albumin Globulin Albumin/Globulin Ratio Triglycerides Cholesterol LDL Cholesterol, Calc VLDL Cholesterol, Calc HDL Cholesterol Cholesterol/HDL Ratio TSH Urine Color Urine Appearance Urine pH Ur Specific Towson Urine Protein Urine Glucose (UA) Urine Ketones Urine Blood Urine Nitrite Urine Bilirubin Urine Urobilinogen Ur Leukocyte Esterase Urine WBC (Auto) Urine RBC (Auto) U Hyaline Cast (Auto) U Epithel Cells (Auto) Urine Bacteria (Auto) Urine Crystals Calcium Oxalate Crystal Urine Yeast Urine Test Salicylates < 3.0 L Urine Opiates Screen Ur Methadone, Qual Acetaminophen < 3 L Urine Barbiturates Ur Phencyclidine (PCP) U Amphetamin/Meth Scrn MDMA (Ecstasy) Screen U Benzodiazepines Scrn Ur Cocaine Metabolite U Marijuana (THC) Screen Ethyl Alcohol mg/dL < 10.0 SARS-CoV-2, RNA, NAAT NEGATIVE 07/07/22 07/07/22 07/07/22 20:57 20:57 20:57 WBC RBC Hgb Hct MCV MCH MCHC RDW Std Deviation RDW Coeff of Anali Plt Count MPV Immature Gran % (Auto) Neut % (Auto) Lymph % (Auto) Hubbard % (Auto) Eos % (Auto) Baso % (Auto) Neut # (Auto) Lymph # (Auto) Hubbard # (Auto) Eos # (Auto) Baso # (Auto) Immature Gran # (Auto) Sodium Potassium Chloride Carbon Dioxide Anion Gap BUN Creatinine Est Cr Clr Drug Dosing Est GFR ( Amer) Est GFR (Non-Af Amer) BUN/Creatinine Ratio Glucose Calcium Total Bilirubin AST ALT Alkaline Phosphatase Total Protein Albumin Globulin Albumin/Globulin Ratio Triglycerides Cholesterol LDL Cholesterol, Calc VLDL Cholesterol, Calc HDL Cholesterol Cholesterol/HDL Ratio TSH Urine Color Yellow Urine Appearance Clear Urine pH 5.5 Ur Specific Towson 1.026 Urine Protein Negative Urine Glucose (UA) Negative Urine Ketones Negative Urine Blood Negative Urine Nitrite Negative Urine Bilirubin Negative Urine Urobilinogen Negative Ur Leukocyte Esterase 2+ H Urine WBC (Auto) >30 H Urine RBC (Auto) 0-4 U Hyaline Cast (Auto) 0 U Epithel Cells (Auto) 20-30 H Urine Bacteria (Auto) Negative Urine Crystals Not Reportable Calcium Oxalate Crystal Present A Urine Yeast Not Reportable Urine Test Negative Salicylates Urine Opiates Screen Neg Ur Methadone, Qual Neg Acetaminophen Urine Barbiturates Neg Ur Phencyclidine (PCP) Neg U Amphetamin/Meth Scrn Neg MDMA (Ecstasy) Screen Neg U Benzodiazepines Scrn Neg Ur Cocaine Metabolite Neg U Marijuana (THC) Screen Neg Ethyl Alcohol mg/dL SARS-CoV-2, RNA, NAAT 07/13/22 07:47 WBC RBC Hgb Hct MCV MCH MCHC RDW Std Deviation RDW Coeff of Anali Plt Count MPV Immature Gran % (Auto) Neut % (Auto) Lymph % (Auto) Hubbard % (Auto) Eos % (Auto) Baso % (Auto) Neut # (Auto) Lymph # (Auto) Hubbard # (Auto) Eos # (Auto) Baso # (Auto) Immature Gran # (Auto) Sodium Potassium Chloride Carbon Dioxide Anion Gap BUN Creatinine Est Cr Clr Drug Dosing Est GFR ( Amer) Est GFR (Non-Af Amer) BUN/Creatinine Ratio Glucose Calcium Total Bilirubin AST ALT Alkaline Phosphatase Total Protein Albumin Globulin Albumin/Globulin Ratio Triglycerides 132 Cholesterol 145 LDL Cholesterol, Calc 85 VLDL Cholesterol, Calc 26 HDL Cholesterol 34 Cholesterol/HDL Ratio 4.3 TSH Urine Color Urine Appearance Urine pH Ur Specific Towson Urine Protein Urine Glucose (UA) Urine Ketones Urine Blood Urine Nitrite Urine Bilirubin Urine Urobilinogen Ur Leukocyte Esterase Urine WBC (Auto) Urine RBC (Auto) U Hyaline Cast (Auto) U Epithel Cells (Auto) Urine Bacteria (Auto) Urine Crystals Calcium Oxalate Crystal Urine Yeast Urine Test Salicylates Urine Opiates Screen Ur Methadone, Qual Acetaminophen Urine Barbiturates Ur Phencyclidine (PCP) U Amphetamin/Meth Scrn MDMA (Ecstasy) Screen U Benzodiazepines Scrn Ur Cocaine Metabolite U Marijuana (THC) Screen Ethyl Alcohol mg/dL SARS-CoV-2, RNA, NAAT Hospital Course (1) MDD (major depressive disorder), recurrent episode, severe: (2) Post traumatic stress disorder (PTSD): (3) Depression with suicidal ideation: (4) S/P ACL reconstruction: Plan 07/15/22: Start buspar 5mg BID po. 07/14/22: Continue with current medications and tx plan. 07/13/22: Decrease olanzapine to 5mg hs. 07/12/22: Continue current medications and tx plan. Recheck fasting lipid panel given she remains on abilify and olanzapine with 22 lb weight gain since last ad mission in January 2022. 07/11/22: continue current meds and tx plan. 07/10/22: Risks/benefits/alternatives reviewed re: Lamictal for mood stabilization. Discussion included but was not limited to slow titration to decrease risks of Kyle's Taran syndrome. Patient agrees to hold med/notify current prescriber of rash immediately. Patient is essentially a restart as couldn't chart picker script after rehab. First dose yesterday. 07/09/22: There is now a report of patient taking lamictal and CM states plan was for titration, records pending. Last rx appears to be early May. 07/08/22: The patient was admitted to the [facility] ([facility] unit) on q15 min checks (behavioral with suicide precautions) for safety. The patient will participate in group, recreational, and milieu therapies and will be offered additional individual and family sessions as clinically appropriate. Risks/benefits/alternatives reviewed re: current medications. Will confirm date of last Abilify injection. Mental Health & Subst Abuse Tx Psychiatrist Name of Psychiatrist: Nayely Randall Psychiatrist's Date of Appointment with Psychiatrist: 08/08/21 Time of Appointment with Psychiatrist: 11 AM Psychiatric Appointment Comment: [address] [place], [place] Therapist Name of Therapist: Nayely Martinez Therapist's Date of Therapist Appointment: 07/17/22 Time of Therapist Appointment: 9 am Therapy Appointment Comment: [address] [place], [place] Potline Monitor Name of Potline Monitor: [facility] MH/ID-Rivka Keating Phone Number for Potline Monitor: [phone] Time of Appointment with Potline Monitor: continued scheduled meetings as usual Post Discharge Appointments Primary Care Physician Name Of Family Doctor: Nayely Null- Melody Mcpherson Primary Care Date of Appointment with PCP: 07/23/22 Time of Appointment with PCP: 10 AM Provider Appointment Comment: [address] [place], [place] Citrix Architect Name of Citrix Architect: Kris Time of Appointment with Citrix Architect: emperatriz regular schedule as usual Specialist Name of Specialist: [facility] Phone Number for Specialist: Date of Appointment with Specialist: 07/16/22 Time of Appointment with Specialist: 11am Specialty Appointment Comment: [address], [place] [address] Contact Information Discharge Discharge [address]: [address] [place] [address] Discharge Plan Discharge Items Patient Disposition: Home - Self-Care Reason For Visit: MDD Discharge Diagnosis: Major Depressive Disorder Activity: Resume your previous activity Non-emergency contact: Primary Care Provider, Psychiatrist, Therapist and Inside Sales Agent Call non-emergency contact if: you have any medication questions and your symptoms worsen Follow-up/Referrals: Melody Mcpherson DO [Primary Care Provider] - Diet: Regular Addtl Attending Provider Instructions: SPECIAL CARE INSTRUCTIONS: 1. Follow through with your scheduled aftercare appointments. If unable to keep an appointment, please call to reschedule. 2. Take your medication only as prescribed. Medication should not be changed or stopped without the approval of your doctor. In the event of worsening symptoms or concerns about side effects, contact your doctor immediately. 3. Utilize new healthy coping skills, anger management skills, and stress management skills learned during your hospitalization. Journal feelings and process them with a support person. Identify stressors or situations that may result in relapse, deterioration or inappropriate behaviors and develop a plan to deal with those issues. 4. If your coping skills are ineffective and you are in crisis, contact your outpatient providers for direction. If unable to reach your providers, please call the [facility] CRISIS LINE AT , go to the [facility] walk-in center at [address], [address], [place], or go to the closest Emergency Room. 5. Avoid alcohol and un-prescribed drugs. 6. You have been provided with the Mental Health Advance Directives Pamphlet for your review. 7. Your condition is stable for discharge to outpatient level of care, but recovery is an ongoing process. Ifthoughts to harm yourself or others return, follow the safety plan developed during your stay. Planning for a safe return home includes securing weapons. Our treatment team recommends weaponsbe removed from the home until your outpatient provider reassesses your progress. In rare cases where the items themselvescannot be removed, guns and ammunitionshould be secured separatelyand keys stored by a reliable personoutside of the home. If you were admitted on an involuntary commitment, the police or other legal authorities may be involved in this process. AFTERCARE APPOINTMENTS: * Please call your insurance company prior to your scheduled appointment to confirm your aftercare providers are covered. Take your insurance information to your appointments. WHO TO CALL AND WHEN: Medical Emergencies: For questions or emergencies related to your hospital stay, please contact the Inpatient Behavioral Health Unit at [phone]. A oven tender bagels is on-call 23/02 for the Behavioral Health Unit for emergencies At any time you feel your situation is an emergency, you may also call 911 immediately. Pending Studies at Discharge: No Stand-Alone Forms: My [facility] Medications and DC Order Prescriptions: New escitalopram oxalate 20 mg Tablet 20 mg PO QAM 30 Days Qty: 30 0RF olanzapine 5 mg Tablet 5 mg PO HS 30 Days Qty: 30 0RF topiramate 25 mg Tablet 25 mg PO QAM 30 Days Qty: 30 0RF buspirone 5 mg Tablet 5 mg PO BID 30 Days Qty: 60 0RF hydroxyzine HCl 25 mg Tablet 25 mg PO BID PRN (Reason: anxiety/insomnia) 30 Days Qty: 60 0RF lamotrigine [Lamictal] 25 mg Tablet 25 mg PO QAM 30 Days Qty: 30 0RF Continued Abilify Maintena 400 mg suspension,extended rel recon 400 mg IM MONTHLY ondansetron HCl 4 mg tablet 4 mg PO Q6H PRN (Reason: nausea and vomiting) Qty: 12 0RF tramadol 100 mg tablet 100 mg PO Q6H Qty: 30 0RF acetaminophen 500 mg tablet 500 mg PO Q6H PRN (Reason: pain) Qty: 30 0RF Discontinued hydroxyzine pamoate 25 mg Capsule 25 mg PO TID PRN (Reason: Anxiety) aripiprazole 10 mg tablet 10 mg PO HS naltrexone 50 mg tablet 50 mg PO QPM olanzapine 7.5 mg tablet 7.5 mg PO HS Discharge Orders: Discharge Order (Routine); Ordered 07/16/22 Ordered By: Millie Sadler Admission Data Admit Date/Time: 07/08/22 13:48 Attending Provider: Kierra Call Admit Provider: Kierra Call Primary Care Provider: Melody Mcpherson Other Interventions: Discharge Summary Assessment (RN) Last Done: 07/16/22 09:30 PSY Interdisciplinary Discharge Planning Last Done: 07/15/22 08:58 Coding Level of Care Code 67317 D/C day mgmt > 30 min Diagnoses MDD (major depressive disorder), recurrent episode, severe F33.2 Post traumatic stress disorder (PTSD) F43.10 Depression with suicidal ideation F32.A; R45.851 S/P ACL reconstruction Z98.890 Time Spent (min) 40
[2022-07-16] MEDS: traMADol HCL 50 MG TABLET PO PRN (09:51)
== END 2022-07-16 09:54 | disposition home or self-care (01) | DRG 885 ==
LOC: ED 17:38 → 3S 07-08 13:48

== ENCOUNTER 2022-07-19 15:25 | Inpatient (IN) ==
--- NOTE | 2022-07-19 15:53 | Emergency Department Note ---
History of Present Illness General Chief complaint: Overdose (Intentional) Time Seen by Provider: 07/19/22 15:32 Source: patient Mode of arrival: EMS Limitations: no limitations History of Present Illness Provider complaint: Intentional overdose This is a 21-year-old female presents emergency department following an intentional overdose. Patient states that approximately 2:45 PM she ingested the remaining pills in her bottle of escitalopram and hydroxyzine. Vitals at bedside show escitalopram 20 mg tablets just filled on July 16 and hydroxyzine 25 mg tablets also just filled on July 16. Patient admits to increased depression and suicidal ideation. Patient does have a history of MDD. Patient denies any additional coingestions including no other [id number] medications and no alcohol. Patient denies any current symptoms. Home Medications Medication Instructions Recorded Confirmed Type aripiprazole 400 mg intramuscular 400 mg IM MONTHLY 04/07/21 07/19/22 History suspension,extended release (Abilifnena Maintena) ondansetron HCl 4 mg tablet 4 mg PO Q6H PRN nausea and 06/25/22 07/19/22 Rx vomiting #12 tabs acetaminophen 500 mg tablet 500 mg PO Q6H PRN pain #30 tabs 07/04/22 07/19/22 Rx tramadol 100 mg tablet 100 mg PO Q6H #30 tabs 07/04/22 07/19/22 Rx buspirone 5 mg tablet 5 mg PO BID KYLIE 30 days #60 tabs 07/16/22 07/19/22 Rx escitalopram oxalate 20 mg tablet 20 mg PO QAM MDD 30 days #30 tabs 07/16/22 07/19/22 Rx hydroxyzine HCl 25 mg tablet 25 mg PO BID PRN anxiety/insomnia 07/16/22 07/19/22 Rx 30 days #60 tabs lamotrigine 25 mg tablet (Lamictal) 25 mg PO QAM BPAD 30 days #30 tabs 07/16/22 07/19/22 Rx olanzapine 5 mg tablet 5 mg PO HS MDD with psychosis 30 07/16/22 07/19/22 Rx days #30 tabs topiramate 25 mg tablet 25 mg PO QAM LOUIS 30 days #30 tabs 07/16/22 07/19/22 Rx Allergies Allergy/AdvReac Type Severity Reaction Status Date / Time risperidone Allergy Intermediate Verified 06/25/22 09:14 Past Med/Surg History Medical History Acute medial meniscus tear of right knee Adjustment disorder with depressed mood COVID-19 diagnosed 06/02/22 @ [facility]--states she hospitalized at [facility] for 3 days at the time for suicidal ideations--severe cough with mucous, headache--no symptoms now Depression Depression with suicidal ideation recent admission for this @ [facility] 06/02/22 Gastric polyp History of anesthesia reaction difficulty waking after EGD Low TSH level Major depressive disorder with psychotic features Partial tear of anterior cruciate ligament of knee Post traumatic stress disorder (PTSD) Right ACL tear Suicidal ideation recent admission to [facility] for this 06/02/22 Surgical History H/O esophagogastroduodenoscopy Family History Unknown Adopted Other Family history not known due to adoption Social History Smoking Status: Never smoker Second Hand Exposure: No; Hx Alcohol Use: No Hx Substance Use: No Preferred Language: Turkish Communication Ability: Effective Commercial [employer] Required: No Beliefs That Will Affect Care: None Current Living Situation: Alone Other Information That Helps Us Care for You: No Feels Safe at Home: No Is there a partner from a previous relationship who is making you feel unsafe now?: No Any Concerns about Your Family Situation: No Would You Like to Speak to Someone About Your Situation: Yes Safety Concerns: Afraid for Self Assistive Devices: Glasses Review of Systems A total of 10 systems reviewed and were otherwise negative All systems reviewed & are unremarkable except as noted in HPI & below Physical Exam Vital Signs Vital Signs - 24 hr 07/20/22 01:31 07/20/22 02:39 Pulse Rate [Radial] 77 76 Respiratory Rate 20 20 Blood Pressure [Left Arm] 103/89 117/79 Blood Pressure Mean [Left Arm] 93 91 Pulse Oximetry 97 97 Oxygen Delivery Method Room Air Room Air GENERAL: alert, well appearing, well nourished, no distress, non-toxic EYE EXAM: normal conjunctiva, PERRL and EOM's grossly intact OROPHARYNX: no exudate, no erythema, lips, buccal mucosa, and tongue normal and mucous membranes are moist NECK: supple, no nuchal rigidity, no adenopathy, non-tender LUNGS: Clear to auscultation. Normal chest wall mechanics, no w/r/r HEART: no murmurs, S1 normal and S2 normal ABDOMEN: abdomen soft, non-tender, normo-active bowel sounds, no masses, no rebound or guarding. BACK: Back is symmetrical on inspection and there is no deformity, no midline tenderness, no CVA tenderness. SKIN: no rashes and no bruising UPPER EXTREMITIES: upper extremities are grossly normal. FROM, nml pulses b/l. LOWER EXTREMITIES: No pitting edema. FROM, nml pulses b/l. Right lower extremity in a knee immobilizer. NEURO EXAM: Normal sensorium, cranial nerves II-XII grossly intact, normal speech, no gross weakness of arms, no gross weakness of legs. Gross sensation intact. Course Course 1629: Discussed with poison control. Recommends 8 hour obs. Repeat ekg at that time. 1644: Pt states she is now having intermittent chest pain. 1909: Vital signs stable. Patient updated on results. No new or evolving symptoms. 2057: Patient states she is feeling improved. She did vomit once while here though has no current nausea, abdominal pain, chest pain, shortness of breath, headaches, or fatigue. Patient signed out to Dr. Ashton awaiting mental health evaluation. Repeat EKG still with prolonged QTC. Additional magnesium ordered. 2129: Updated poison control. They state because her QTC is still prolonged, they would wait 4 hours before rechecking an EKG. If the EKG at that point in time shows a QTC less than 500 ms they would then deem her medically clear for psychiatric evaluation. Administered Medications Sodium Chloride (Nss 1000ml) 1,000 mls @ 125 mls/hr IV .Q8H IFEOMA Stop: 08/18/22 15:59 Last Admin: 07/20/22 18:22 Dose: 125 mls/hr Documented By: Infusion: 07/20/22 17:54 Dose: 125 mls/hr Documented By: Admin: 07/20/22 09:54 Dose: 125 mls/hr Documented By: Infusion: 07/20/22 07:32 Dose: 125 mls/hr Documented By: Admin: 07/19/22 23:32 Dose: 125 mls/hr Documented By: LUIS A Infusion: 07/19/22 23:32 Dose: 125 mls/hr Documented By: LUIS A Admin: 07/19/22 16:02 Dose: 125 mls/hr Documented By: MIKAELA Discontinued Medications Acetaminophen (Acetaminophen 325 Mg Tab) 650 mg PO NOW STA Stop: 07/20/22 06:19 Last Admin: 07/20/22 06:31 Dose: 650 mg Documented By: LISETTE Al Hydrox/Mg Hydrox/Simethicone (Gi Cocktail Ed Use) 1 dose PO ONE ONE Stop: 07/19/22 23:12 Last Admin: 07/19/22 23:29 Dose: 1 dose Documented By: LUIS A Magnesium Sulfate/Dextrose (Magnesium Sulfate / D5w) 1 gm in 100 mls @ 100 mls/hr IV NOW STA Stop: 07/19/22 17:35 Last Infusion: 07/19/22 17:45 Dose: 0 mls/hr Documented By: Admin: 07/19/22 16:42 Dose: 100 mls/hr Documented By: MIKAELA Famotidine (Pepcid 20mg Iv Push) 20 mg in 5 mls @ 2.5 mls/min IV NOW STA Stop: 07/19/22 20:15 Last Admin: 07/19/22 20:30 Dose: 2.5 mls/min Documented By: MIKAELA Sodium Chloride (Nss 1000ml) 500 mls @ 999 mls/hr IV .Q31M ONE Stop: 07/19/22 21:40 Last Infusion: 07/19/22 22:05 Dose: 0 mls/hr Documented By: Admin: 07/19/22 21:27 Dose: 999 mls/hr Documented By: MIKAELA Magnesium Sulfate/Dextrose (Magnesium Sulfate / D5w) 1 gm in 100 mls @ 100 mls/hr IV NOW STA Stop: 07/19/22 22:19 Last Infusion: 07/19/22 23:36 Dose: 0 mls/hr Documented By: LUIS A Admin: 07/19/22 21:28 Dose: 100 mls/hr Documented By: MIKAELA Magnesium Sulfate/Dextrose (Magnesium Sulfate / D5w) 1 gm in 100 mls @ 200 mls/hr IV Q30M IFEOMA Stop: 07/20/22 03:59 Last Infusion: 07/20/22 04:40 Dose: 0 mls/hr Documented By: Admin: 07/20/22 03:52 Dose: 200 mls/hr Documented By: Infusion: 07/20/22 03:52 Dose: 0 mls/hr Documented By: Admin: 07/20/22 03:07 Dose: 200 mls/hr Documented By: ZEKE Ioversol (Optiray 320 500ml) 115 ml IV ONCE ONE Stop: 07/19/22 17:57 Last Admin: 07/19/22 18:01 Dose: 115 ml Documented By: DEYVI Lorazepam (Lorazepam 1 Mg/1 Ml Syr) 0.5 mg IV NOW STA; Protocol Stop: 07/19/22 16:37 Last Admin: 07/19/22 16:42 Dose: 0.5 mg Documented By: KT Lorazepam (Lorazepam 1 Mg/1 Ml Syr) 1 mg IV NOW STA; Protocol Stop: 07/19/22 17:07 Last Admin: 07/19/22 17:21 Dose: 1 mg Documented By: KT Potassium Chloride (Potassium Chloride Crtab 20 Meq Tabcr) 40 meq PO NOW STA Stop: 07/20/22 22:33 Last Admin: 07/20/22 22:51 Dose: 40 meq Documented By: CF Critical Care Time Critical Care Time: Yes Total Critical Care Time: 52 Critical care of 52 min performed to assess and manage high likelihood of life- threatening intentional overdose, involving labs and imaging performed with assessment to evaluate intentional overdose and prolonged QTC diagnosis with frequent reassessment. This time includes bedside time, treatment discussions with patient/family/consultants, documentation time and excludes procedure time. Medical Decision Making Differential Diagnosis Overdose, toxicologic, infection, hypoglycemia, electrolyte abnormalities, cardiac sources, intracerebral event, neurologic, trauma, as well as other pathologies. Medical Records Attestation: I reviewed the patient's medical records. Home Medications Current Medication List: was personally reviewed by me Laboratory Data Attestation: I reviewed the patient's lab results. Result diagrams: 07/19/22 15:42 07/19/22 15:42 Lab Results 07/19/22 07/19/22 07/19/22 Range/Units 15:42 15:42 15:42 WBC 8.12 (4.8-10.8) K/ul RBC 4.36 (3.93-5.22) M/uL Hgb 13.4 (12.0-16.0) g/dl Hct 38.2 (34.1-44.9) % MCV 87.6 (80.0-100.0) fL MCH 30.7 (25.0-34.0) pg MCHC 35.1 (32.0-36.0) g/dL RDW Std Deviation 44.0 (36.4-46.3) fL RDW Coeff of Anali 13.7 (11.5-14.5) % Plt Count 495 H (130-400) K/uL MPV 9.1 L (9.4-12.3) fL Immature Gran % (Auto) 0.4 % Neut % (Auto) 66.6 % Lymph % (Auto) 24.8 % [place] % (Auto) 7.6 % Eos % (Auto) 0.5 % Baso % (Auto) 0.1 % Neut # (Auto) 5.41 (1.4-6.5) K/uL Lymph # (Auto) 2.01 (1.2-3.4) K/uL [place] # (Auto) 0.62 (0.24-0.82) K/uL Eos # (Auto) 0.04 (0-0.50) K/uL Baso # (Auto) 0.01 (0-0.2) K/uL Immature Gran # (Auto) 0.03 H (0.00-0.02) K/uL Sodium 138 (136-145) mmol/L Potassium 3.6 (3.5-5.1) mmol/L Chloride 106 (98-107) mmol/L Carbon Dioxide 23 (21-32) mmol/L Anion Gap 9 (3-11) BUN 13 (6-23) mg/dl Creatinine 0.73 (0.6-1.2) mg/dl Est Cr Clr Drug Dosing 115.0 ml/min Est GFR ( Amer) 136.5 ml/min Est GFR (Non-Af Amer) 117.7 ml/min BUN/Creatinine Ratio 17.8 (10-20) Glucose 119 H (70-99(Fasting)) mg/dl Calcium 8.8 (8.5-10.1) mg/dl Magnesium 2.1 (1.7-2.4) mg/dl Total Bilirubin 0.3 (0.2-1.0) mg/dl AST 12 L (13-39) U/L ALT 16 (7-52) U/L Alkaline Phosphatase 94 (34-104) U/L Total Protein 7.4 (6.0-8.3) gm/dl Albumin 4.0 (3.4-5.0) gm/dl Globulin 3.4 (2.5-4.0) gm/dl Albumin/Globulin Ratio 1.2 (0.9-2) HCG, Qual (Negative) Salicylates < 3.0 L (3.0-30) mg/dl Urine Opiates Screen (Neg) Ur Methadone, Qual (Neg) Acetaminophen < 3 L (10-30) ug/ml Urine Barbiturates (Neg) Ur Phencyclidine (PCP) (Neg) U Amphetamin/Meth Scrn (Neg) MDMA (Ecstasy) Screen (Neg) U Benzodiazepines Scrn (Neg) Ur Cocaine Metabolite (Neg) U Marijuana (THC) Screen (Neg) Ethyl Alcohol mg/dL (<10.0) mg/dl SARS-CoV-2, RNA, NAAT (NEGATIVE) 07/19/22 07/19/22 07/19/22 Range/Units 15:42 15:42 15:57 WBC (4.8-10.8) K/ul RBC (3.93-5.22) M/uL Hgb (12.0-16.0) g/dl Hct (34.1-44.9) % MCV (80.0-100.0) fL MCH (25.0-34.0) pg MCHC (32.0-36.0) g/dL RDW Std Deviation (36.4-46.3) fL RDW Coeff of Anali (11.5-14.5) % Plt Count (130-400) K/uL MPV (9.4-12.3) fL Immature Gran % (Auto) % Neut % (Auto) % Lymph % (Auto) % [place] % (Auto) % Eos % (Auto) % Baso % (Auto) % Neut # (Auto) (1.4-6.5) K/uL Lymph # (Auto) (1.2-3.4) K/uL [place] # (Auto) (0.24-0.82) K/uL Eos # (Auto) (0-0.50) K/uL Baso # (Auto) (0-0.2) K/uL Immature Gran # (Auto) (0.00-0.02) K/uL Sodium (136-145) mmol/L Potassium (3.5-5.1) mmol/L Chloride (98-107) mmol/L Carbon Dioxide (21-32) mmol/L Anion Gap (3-11) BUN (6-23) mg/dl Creatinine (0.6-1.2) mg/dl Est Cr Clr Drug Dosing ml/min Est GFR ( Amer) ml/min Est GFR (Non-Af Amer) ml/min BUN/Creatinine Ratio (10-20) Glucose (70-99(Fasting)) mg/dl Calcium (8.5-10.1) mg/dl Magnesium (1.7-2.4) mg/dl Total Bilirubin (0.2-1.0) mg/dl AST (13-39) U/L ALT (7-52) U/L Alkaline Phosphatase (34-104) U/L Total Protein (6.0-8.3) gm/dl Albumin (3.4-5.0) gm/dl Globulin (2.5-4.0) gm/dl Albumin/Globulin Ratio (0.9-2) HCG, Qual Negative (Negative) Salicylates (3.0-30) mg/dl Urine Opiates Screen (Neg) Ur Methadone, Qual (Neg) Acetaminophen (10-30) ug/ml Urine Barbiturates (Neg) Ur Phencyclidine (PCP) (Neg) U Amphetamin/Meth Scrn (Neg) MDMA (Ecstasy) Screen (Neg) U Benzodiazepines Scrn (Neg) Ur Cocaine Metabolite (Neg) U Marijuana (THC) Screen (Neg) Ethyl Alcohol mg/dL < 10.0 (<10.0) mg/dl SARS-CoV-2, RNA, NAAT NEGATIVE (NEGATIVE) 07/19/22 Range/Units 19:18 WBC (4.8-10.8) K/ul RBC (3.93-5.22) M/uL Hgb (12.0-16.0) g/dl Hct (34.1-44.9) % MCV (80.0-100.0) fL MCH (25.0-34.0) pg MCHC (32.0-36.0) g/dL RDW Std Deviation (36.4-46.3) fL RDW Coeff of Anali (11.5-14.5) % Plt Count (130-400) K/uL MPV (9.4-12.3) fL Immature Gran % (Auto) % Neut % (Auto) % Lymph % (Auto) % [place] % (Auto) % Eos % (Auto) % Baso % (Auto) % Neut # (Auto) (1.4-6.5) K/uL Lymph # (Auto) (1.2-3.4) K/uL [place] # (Auto) (0.24-0.82) K/uL Eos # (Auto) (0-0.50) K/uL Baso # (Auto) (0-0.2) K/uL Immature Gran # (Auto) (0.00-0.02) K/uL Sodium (136-145) mmol/L Potassium (3.5-5.1) mmol/L Chloride (98-107) mmol/L Carbon Dioxide (21-32) mmol/L Anion Gap (3-11) BUN (6-23) mg/dl Creatinine (0.6-1.2) mg/dl Est Cr Clr Drug Dosing ml/min Est GFR ( Amer) ml/min Est GFR (Non-Af Amer) ml/min BUN/Creatinine Ratio (10-20) Glucose (70-99(Fasting)) mg/dl Calcium (8.5-10.1) mg/dl Magnesium (1.7-2.4) mg/dl Total Bilirubin (0.2-1.0) mg/dl AST (13-39) U/L ALT (7-52) U/L Alkaline Phosphatase (34-104) U/L Total Protein (6.0-8.3) gm/dl Albumin (3.4-5.0) gm/dl Globulin (2.5-4.0) gm/dl Albumin/Globulin Ratio (0.9-2) HCG, Qual (Negative) Salicylates (3.0-30) mg/dl Urine Opiates Screen Neg (Neg) Ur Methadone, Qual Neg (Neg) Acetaminophen (10-30) ug/ml Urine Barbiturates Neg (Neg) Ur Phencyclidine (PCP) Neg (Neg) U Amphetamin/Meth Scrn Neg (Neg) MDMA (Ecstasy) Screen Neg (Neg) U Benzodiazepines Scrn Neg (Neg) Ur Cocaine Metabolite Neg (Neg) U Marijuana (THC) Screen Neg (Neg) Ethyl Alcohol mg/dL (<10.0) mg/dl SARS-CoV-2, RNA, NAAT (NEGATIVE) Imaging Data Radiologist's Impression: Chest CTA 07/19/22 17:39 CT ANGIOGRAM OF THE CHEST CLINICAL HISTORY: Atypical chest pain. COMPARISON STUDY: Chest x-ray dated 06/02/2022. TECHNIQUE: Following the IV administration of 115 cc of Optiray 320, CT mariano ogram of the chest was performed from the upper abdomen to the thoracic inlet utilizing the pulmonary embolus protocol. Images are reviewed in the axial, sagittal, and coronal planes. 3-D MIPS images are created and assessed. IV contrast was administered without complication. A dose lowering technique was utilized adhering to the principles of ALARA. The examination is compromised by motion artifact. CT DOSE: 406.83 mGy.cm FINDINGS: Thyroid: Mildly enlarged and heterogeneous. Thoracic aorta: The thoracic aorta is normal in caliber and demonstrates standard 3-vessel arch anatomy. No dissection is seen. Pulmonary vasculature: The pulmonary trunk is normal in caliber. There are no filling defects identified in main, lobar, or proximal segmental pulmonary branches to suggest pulmonary embolus. The segmental and subsegmental branches are suboptimally assessed due to motion artifact. Heart: There is cardiac enlargement. No pericardial effusion is seen. Lungs and pleural spaces: Evaluation of the lung parenchyma is significantly degraded by motion artifact. No airspace consolidation or pleural effusion is i dentified. The trachea and central airways appear clear. Mediastinum: There is no mediastinal lymphadenopathy. Camilla: Clear. Axillae: There is no axillary lymphadenopathy. Upper abdomen: Partially visualized upper abdominal viscera is within normal limits. Skeletal structures: There is an indeterminate lucency at the junction of the body and manubrium of the sternum. This is best seen on the sagittal images and measures up to 1.5 cm, and there is questionable adjacent bony erosion. There may be faint overlying induration. No additional similar appearing bone lesions are seen. IMPRESSION: 1. Motion compromised examination. 2. There is no evidence of central pulmonary embolus in the main, lobar, or proximal segmental pulmonary arteries. The segmental and subsegmental branches are not well assessed due to motion artifact. 3. The lungs are clear. 4. Mild cardiac enlargement. 5. An indeterminate lucency is seen at the sternomanubrial junction, with possible adjacent erosive change. This is of indeterminate etiology and significance. Although this could potentially represent a developmental variant, an infectious or neoplastic etiology would be impossible to exclude. Clinical correlation will be essential. Consider short-term (several weeks) CT follow-up for reassessment. 6. Additional findings as above. ACT 112: Negative or not required by law. Electronically signed by: Yossi Blanca M.D. 07/19/2022 6:26 PM ECG Data Attestation: I personally reviewed and interpreted this ECG as follows: Indication: + toxicologic Rate (beats per minute): 98 Rhythm: + normal sinus ECG Intervals/blocks: + Normal QRS and + Normal QT ECG Hagaman: + Normal ECG ST segments: + Nonspecific ST abnormalities Additional Comments: Repeat EKG with prolonged QTC, no other acute changes noted MDM Narrative An order was placed for continuous cardiac monitoring. The monitor shows a rate of _83__ with _normal sinus_ rhythm. This is a 21-year-old female presents following an intentional overdose. Patient initially asymptomatic although did develop some episodes of intermittent chest pain. Due to recent orthopedic surgery to the right knee she was sent for CT angiography which was reassuring. Patient's other labs reassuring. She was given a dose of Ativan here with improvement. Patient monitored for several hours, she was hydrated, and had no other worsening symptoms. Patient did unfortunately have borderline QTC prolongation initially. This was rechecked many hours later and was still found to be prolonged. Additional IV magnesium was added and case discussed again with poison control. They recommended additional observation time and repeat EKG. Patient signed out to Dr. Ashton pending this additional monitoring and repeat EKG prior to being able to be medically cleared and evaluated psychiatrically. Impression & Plan Intentional overdose, Depression with suicidal ideation, Right ACL tear, MDD (major depressive disorder), QT prolongation Discharge Plan Visit Data Chief Complaint: Overdose (Intentional) ED Provider: Seng Ashton Discharge Problem: Intentional overdose, Depression with suicidal ideation, Right ACL tear, MDD (major depressive disorder), QT prolongation Patient Disposition: Admitted As Inpatient Discharge Instructions Interventions: ED Discharge Assessment Last Done: 07/20/22 05:54
[2022-07-19 15:57] LABS: Basophils # (auto) 0.01 K/uL (0-0.2); Basophils % (auto) 0.1 %; Eosinophils # (auto) 0.04 K/uL (0-0.50); Eosinophils % (auto) 0.5 %; Hematocrit (blood only) 38.2 % (34.1-44.9); Hemoglobin 13.4 g/dl (12.0-16.0); Immature Granulocytes # (auto) 0.03 K/uL (0.00-0.02); Immature Granulocytes % (auto) 0.4 %; Lymphocytes # (auto) 2.01 K/uL (1.2-3.4); Lymphocytes % (auto) 24.8 %; Mean Corpuscular Hemoglobin 30.7 pg (25.0-34.0); Mean Corpuscular Hgb Conc 35.1 g/dL (32.0-36.0); Mean Corpuscular Volume 87.6 fL (80.0-100.0); Mean Platelet Volume 9.1 fL (9.4-12.3); Monocytes # (auto) 0.62 K/uL (0.24-0.82); Monocytes % (auto) 7.6 %; Neutrophils # (auto) 5.41 K/uL (1.4-6.5); Neutrophils % (auto) 66.6 %; Platelet Count 495 K/uL (130-400); RDW Coefficient of Variation 13.7 % (11.5-14.5); Red Blood Count 4.36 M/uL (3.93-5.22); White Blood Count 8.12 K/ul (4.8-10.8)
[2022-07-19] MEDS: SODIUM CHLORIDE 0.9% 1000ML 1,000 ML IV SCH ×2 (16:02→23:32)
[2022-07-19 16:17] LABS: Pregnancy Test, Serum Negative (Negative)
[2022-07-19 16:28] LABS: Acetaminophen < 3 ug/ml (10-30); Albumin Globulin Ratio 1.2 (0.9-2); BUN Creatinine Ratio 17.8 (10-20); Bilirubin,Total 0.3 mg/dl (0.2-1.0); Calcium 8.8 mg/dl (8.5-10.1); Est GFR (African American) 136.5 ml/min; Est GFR (Non-African American) 117.7 ml/min; Globulin 3.4 gm/dl (2.5-4.0); Magnesium 2.1 mg/dl (1.7-2.4); Potassium 3.6 mmol/L (3.5-5.1); Salicylate < 3.0 mg/dl (3.0-30); Total Protein 7.4 gm/dl (6.0-8.3)
[2022-07-19] MEDS ORDERED: LORazepam 2 MG/1 ML VIAL IV STA ×2 (16:36→17:06)
[2022-07-19] MEDS ORDERED: MAGNESIUM SULFATE / D5W 1 GM/100 ML BAG IV STA ×2 (16:36→21:20)
[2022-07-19] MEDS ORDERED: OPTIRAY 320 500ml IV ONE (17:56)
--- NOTE | 2022-07-19 18:28 | CT Scan Report ---
CT ANGIOGRAM OF THE CHEST CLINICAL HISTORY: Atypical chest pain. COMPARISON STUDY: Chest x-ray dated 06/02/2022. TECHNIQUE: Following the IV administration of 115 cc of Optiray 320, CT angiogram of the chest was pe rformed from the upper abdomen to the thoracic inlet utilizing the pulmonary embolus protocol. Images are reviewed in the axial, sagittal, and coronal planes. 3-D MIPS images are created and assessed. I V contrast was administered without complication. A dose lowering technique was utilized adhering to the principles of ALARA. The examination is compromised by motion artifact. CT DOSE: 406.83 mGy.cm FINDINGS: Thyroid: Mildly enlarged and heterogeneous. Thoracic aorta: The thoracic aorta is normal in caliber and demonstrates standard 3-vessel arch anato my. No dissection is seen. Pulmonary vasculature: The pulmonary trunk is normal in caliber. There are no filling defects identif ied in main, lobar, or proximal segmental pulmonary branches to suggest pulmonary embolus. The segmen hannah and subsegmental branches are suboptimally assessed due to motion artifact. Heart: There is cardiac enlargement. No pericardial effusion is seen. Lungs and pleural spaces: Evaluation of the lung parenchyma is significantly degraded by motion artif act. No airspace consolidation or pleural effusion is identified. The trachea and central airways ly ear clear. Mediastinum: There is no mediastinal lymphadenopathy. Camilla: Clear. Axillae: There is no axillary lymphadenopathy. Upper abdomen: Partially visualized upper abdominal viscera is within normal limits. Skeletal structures: There is an indeterminate lucency at the junction of the body and manubrium of t he sternum. This is best seen on the sagittal images and measures up to 1.5 cm, and there is question able adjacent bony erosion. There may be faint overlying induration. No additional similar appearing bone lesions are seen. IMPRESSION: 1. Motion compromised examination. 2. There is no evidence of central pulmonary embolus in the main, lobar, or proximal segmental pulmon romain arteries. The segmental and subsegmental branches are not well assessed due to motion artifact. 3. The lungs are clear. 4. Mild cardiac enlargement. 5. An indeterminate lucency is seen at the sternomanubrial junction, with possible adjacent erosive c hange. This is of indeterminate etiology and significance. Although this could potentially represent a developmental variant, an infectious or neoplastic etiology would be impossible to exclude. Clinica l correlation will be essential. Consider short-term (several weeks) CT follow-up for reassessment. 6. Additional findings as above. ACT 112: Negative or not required by law. Electronically signed by: Yossi Blanca M.D. 07/19/2022 6:26 PM
[2022-07-19] MEDS ORDERED: FAMOTIDINE 20MG IV PUSH 20 MG/5 ML SYR IV STA (20:14)
[2022-07-19 20:53] LABS: Amphetamines+Metham, Urine Neg (Neg); Barbiturates, Urine Neg (Neg); Benzodiazepine, Urine Neg (Neg); Cocaine, Urine Neg (Neg); MDMA (Ecstacy), Urine Neg (Neg); Methadone, Urine Neg (Neg); Opiate, Urine Neg (Neg); Phencyclidine, Urine Neg (Neg)
[2022-07-19] MEDS ORDERED: SODIUM CHLORIDE 0.9% 1000ML 500 ML IV ONE (21:10)
--- NOTE | 2022-07-19 22:20 | Emergency Department Note ---
ED Visit Note The patient was signed out to me awaiting placement. No placement during my shift. Signed out to Dr. Ashton. No issues during my shift. .
--- NOTE | 2022-07-19 22:22 | Emergency Department Note ---
ED Visit Note Received this patient in signout from Dr. Verde. Previously had blood work and EKGs here earlier after an intentional overdose. Awaiting medical clearance as she had a prolonged QTC. Repeat EKG later this evening from guidance of poison control to ensure QTC is improving. Patient resting. Plan for psychiatric evaluation and likely placement given the overdose attempt once medically clear. Patient later complaining of some nausea as well as a little bit of left chest discomfort. Similar to what she had earlier and she did vomit. 1 to be careful avoiding QTC prolonging medicines if possible. Repeat EKG was completed for some chest discomfort that showed sinus rhythm at 74 bpm. No PVC or PAC noted. No acute ST segment elevation with a QTC of 515. Similar morphologies compared to earlier EKGs this evening. We will try GI cocktail to see if this may help with symptoms. Repeat EKG around 1:30 AM showed QTC of 538 ms sinus rhythm. This corresponds with an increase in QTC as opposed to decrease we were hoping for. Still does not appear horribly serotonergic or in any distress. Has been resting. Poison control recommended again repeating EKG in 6 hours. Magnesium will be additionally supplemented. Given her continued prolonged QTC will discuss with the hospitalist for further observation. .
[2022-07-19] MEDS ORDERED: GI COCKTAIL ED USE PO ONE (23:11)
--- NOTE | 2022-07-20 02:49 | History & Physical Report ---
Date of Service July 20, 2022 Assessment & Plan (1) QT prolongation: Plan: Liberty Carlton is a 21-year-old with complicated psychiatric history including PTSD, bipolar disorder, psychosis, past instances of active SI who presented due to an intentional overdose with escitalopram and hydroxyzine. Admission recommended for monitoring of prolonged QT. 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 MDD with suicidal attempt Management as above Will require psych placement once medically stabilized DVT prophylaxis: SCDs Diet: Regular Dispo: Admit to telemetry for cardiac monitoring, placement pending medical stability CODE STATUS: Full (2) Intentional overdose: (3) MDD (major depressive disorder): (4) Post traumatic stress disorder (PTSD): (5) Depression with suicidal ideation: History of Present Illness Primary Care Provider: Melody Mcpherson DO Liberty Carlton is a 21-year-old female with complicated psychiatric history including PTSD, bipolar disorder, psychosis, past instances of active SI who presented due to an intentional overdose with escitalopram and hydroxyzine. The patient admitted to having ingested all her remaining escitalopram and hydroxyzine pills she had filled both prescriptions on July 16. She does admit to higher level of depression and suicidal ideation as of late. She denies any additional medication ingestion or any illicit drugs. She did complain of some nausea and chest discomfort, for which she had an initial EKG showing QT prolongation. Successive EKGs have shown worsening QT prolongation, for which the patient was administered a total of 4 g magnesium sulfate in the ED. Poison control was contacted and recommended serial EKGs every 6 hours. Patient's lab work was largely unremarkable with negative tox screen, normal electrolytes. Magnesium level of 2.1. At time of my evaluation, patient is resting comfortably. She is alert and conversing appropriately, still reporting some anterior chest discomfort. She mentioned that her pain was recreated even with light touch of my stethoscope. Also reports a mild headache. Currently denying nausea, palpitations, shortness of breath, weakness, numbness, tingling, fever, chills, diaphoresis, tremors. Allergies Allergy/AdvReac Type Severity Reaction Status Date / Time risperidone Allergy Intermediate Verified 06/25/22 09:14 Home Medications Medication Instructions Recorded Confirmed Type aripiprazole 400 mg intramuscular 400 mg IM MONTHLY 04/07/21 07/19/22 History suspension,extended release (Abilify Maintena) ondansetron HCl 4 mg tablet 4 mg PO Q6H PRN nausea and 06/25/22 07/19/22 Rx vomiting #12 tabs acetaminophen 500 mg tablet 500 mg PO Q6H PRN pain #30 tabs 07/04/22 07/19/22 Rx tramadol 100 mg tablet 100 mg PO Q6H #30 tabs 07/04/22 07/19/22 Rx buspirone 5 mg tablet 5 mg PO BID KYLIE 30 days #60 tabs 07/16/22 07/19/22 Rx escitalopram oxalate 20 mg tablet 20 mg PO QAM MDD 30 days #30 tabs 07/16/22 07/19/22 Rx hydroxyzine HCl 25 mg tablet 25 mg PO BID PRN anxiety/insomnia 07/16/22 07/19/22 Rx 30 days #60 tabs lamotrigine 25 mg tablet (Lamictal) 25 mg PO QAM BPAD 30 days #30 tabs 07/16/22 07/19/22 Rx olanzapine 5 mg tablet 5 mg PO HS MDD with psychosis 30 07/16/22 07/19/22 Rx days #30 tabs topiramate 25 mg tablet 25 mg PO QAM LOUIS 30 days #30 tabs 07/16/22 07/19/22 Rx Past Med/Surg History Medical History Acute medial meniscus tear of right knee Adjustment disorder with depressed mood COVID-19 diagnosed 06/02/22 @ [facility]--states she hospitalized at [facility] for 3 days at the time for suicidal ideations--severe cough with mucous, headache--no symptoms now Depression Depression with suicidal ideation recent admission for this @ [facility] 06/02/22 Gastric polyp History of anesthesia reaction difficulty waking after EGD Low TSH level Major depressive disorder with psychotic features Partial tear of anterior cruciate ligament of knee Post traumatic stress disorder (PTSD) Right ACL tear Suicidal ideation recent admission to [facility] for this 06/02/22 Surgical History H/O esophagogastroduodenoscopy Family History Unknown Adopted Other Family history not known due to adoption Social History Smoking Status: Never smoker Second Hand Exposure: No; Hx Alcohol Use: No Hx Substance Use: No Preferred Language: Portuguese Communication Ability: Effective Staff Genetic Counselor Required: No Beliefs That Will Affect Care: None Current Living Situation: Alone Other Information That Helps Us Care for You: No Feels Safe at Home: No Is there a partner from a previous relationship who is making you feel unsafe now?: No Any Concerns about Your Family Situation: No Would You Like to Speak to Someone About Your Situation: Yes Safety Concerns: Afraid for Self Assistive Devices: Glasses Physical Exam Physical Exam: GENERAL: A&Ox3. NAD. HEENT: PERRL, EOMI. Moist mucous membranes. CHEST/LUNGS: CTAB A/P. No crackles, wheezes, rales, rhonchi. HEART: RRR. No m/g/r. No carotid bruits. ABDOMEN: NT/ND, soft. BS+ x4 EXTREMITIES: No cyanosis, no clubbing, no edema SKIN: Warm and dry. No rashes or lesions. PSYCHIATRIC: Euthymic affect, no SI, no pressured speech, no hallucinations NEUROLOGIC: No FND. Results & Data Results & Data ([facility]) Vital Signs (Past 12 Hours) Vital Signs Temp Pulse Pulse Resp BP BP Pulse Ox 07/20/22 02:39 76 20 117/79 97 07/20/22 01:31 77 20 103/89 97 07/20/22 00:34 84 20 116/79 98 07/19/22 23:00 87 18 131/90 98 07/19/22 22:00 84 14 106/68 99 07/19/22 21:28 79 20 104/67 99 07/19/22 20:11 82 17 07/19/22 20:11 99/62 L 07/19/22 20:10 82 17 07/19/22 20:00 80 23 07/19/22 19:50 78 22 12/17/22 19:40 87 20 07/19/22 19:30 88 07/19/22 19:20 85 99 07/19/22 19:10 85 21 98 07/19/22 19:07 120/67 07/19/22 19:07 84 29 H 98 07/19/22 19:00 93 H 23 97 07/19/22 18:50 94 H 27 H 98 07/19/22 18:40 89 29 H 98 07/19/22 18:30 94 H 22 99 07/19/22 18:20 97 H 30 H 98 07/19/22 18:10 95 H 15 99 07/19/22 18:06 91 H 27 H 99 07/19/22 18:05 104/70 07/19/22 17:52 100 H 26 H 98 07/19/22 17:50 100 H 28 H 97 07/19/22 17:40 100 H 98 07/19/22 17:30 110 H 20 98 07/19/22 17:20 108 H 99 07/19/22 17:12 133/71 07/19/22 17:12 108 H 24 99 07/19/22 17:10 105 H 24 99 07/19/22 17:00 106 H 23 98 07/19/22 16:50 109 H 17 98 07/19/22 16:48 107/41 L 07/19/22 16:48 109 H 25 H 96 07/19/22 16:40 103 H 22 98 07/19/22 16:30 105 H 22 97 07/19/22 16:20 110 H 19 98 07/19/22 16:10 101 H 19 99 07/19/22 16:00 98 H 07/19/22 15:50 100 H 98 07/19/22 15:41 101 H 20 98 07/19/22 15:41 115/79 07/19/22 15:47 37 C 97 H 18 97 07/19/22 15:47 37 C 95 H 18 156/86 H 97 O2 Del Method 07/20/22 02:39 Room Air 07/20/22 01:31 Room Air 07/20/22 00:34 Room Air 07/19/22 23:00 07/19/22 22:00 07/19/22 21:28 07/19/22 20:11 07/19/22 20:11 07/19/22 20:10 07/19/22 20:00 07/19/22 19:50 07/19/22 19:40 07/19/22 19:30 07/19/22 19:20 07/19/22 19:10 07/19/22 19:07 07/19/22 19:07 07/19/22 19:00 07/19/22 18:50 07/19/22 18:40 07/19/22 18:30 07/19/22 18:20 07/19/22 18:10 07/19/22 18:06 07/19/22 18:05 07/19/22 17:52 07/19/22 17:50 07/19/22 17:40 07/19/22 17:30 07/19/22 17:20 07/19/22 17:12 07/19/22 17:12 07/19/22 17:10 07/19/22 17:00 07/19/22 16:50 07/19/22 16:48 07/19/22 16:48 07/19/22 16:40 07/19/22 16:30 07/19/22 16:20 07/19/22 16:10 07/19/22 16:00 07/19/22 15:50 07/19/22 15:41 07/19/22 15:41 07/19/22 15:47 07/19/22 15:47 Room Air Supervising Physician Co-Signing Physician Notes Patient seen and examined, chart reviewed, case discussed with Dr. Nicolasa Ramos and I agree with the assessment and plan as above. In brief, patient is a 21yo female with complex psychiatric history presenting with intentional overdose with escitalopram and hydrozyzine. Patient with QT prolongation which has been treated with Mg, is receiving serial EKGs. On exam she is resting comfortably, NAD Skin - intact HEENT - NC/AT, PERRL, MMM Heart - +S1/S2, regular, no m/r/g Lungs - CTA Abd - +BS, soft, NT/ND Labs and images reviewed Assessment/Plan -Continue to monitor EKGs -Mg and HCO3 as needed -Psychiatry consultation appreciated -Remainder as above Resident Activity Tracking Resident Involvement: Resident Care Provided Care Provided: [facility]
[2022-07-20] MEDS: MAGNESIUM SULFATE / D5W 1 GM/100 ML BAG IV SCH ×2 (03:07→03:52)
[2022-07-20] MEDS ORDERED: ACETAMINOPHEN 325 MG TAB PO STA (06:18)
[2022-07-20] MEDS ORDERED: ACETAMINOPHEN 325 MG TAB PO PRN (06:18)
--- NOTE | 2022-07-20 07:39 | Hospitalist Progress Note ---
Date of Service July 20, 2022 Assessment & Plan (1) QT prolongation: Plan: Liberty Carlton is a 21-year-old with complicated psychiatric history including PTSD, bipolar disorder, psychosis, past instances of active SI who presented due to an intentional overdose with escitalopram and hydroxyzine. Admission recommended for monitoring of prolonged QT. QT prolongation secondary to intentional escitalopram and hydroxyzine overdose Last QTC at 1300 on 07/20 was 548, further prolonged from 531 at 0700 on 07/20, recheck ekg in AM At time of admission had received 2 g magnesium sulfate Patient on compliance monitor showing NSR without signs of arrhythmia continue cardiac monitoring Half life of lexapro and hydroxyzine is approx 28 hours and 20 hours in adults respectively, expect decline in QT length over next 24 hours due to ingestion occurring at 1400 on 07/19 Continue to hold home medication regimen until QT normalizes IV fluids discontinued as patient is tolerating PO intake - Tox screen negative Magnesium level, BMP in a.m. - recheck ekg ordered for am. MDD with suicidal attempt PTSD Management as above Will require psych placement once medically stabilized - added prn lorazepam 0.5mgs tid for anxiety while routine meds on hold due to OD. DVT prophylaxis: SCDs Diet: Regular Dispo: telemetry for cardiac monitoring, placement pending medical stability CODE STATUS: Full (2) Intentional overdose: (3) MDD (major depressive disorder): (4) Post traumatic stress disorder (PTSD): (5) Depression with suicidal ideation: Admission and Anticipated Discharge Date Admission Date: July 20, 2022 Supervising Physician Co-Signing Physician Notes Resident Physician Supervision Note: I independently interviewed and examined the patient and verified the gallardo history and physical, reviewed labs and image studies and agree with resident findings and care plan. Subjective Patient seen at bedside this morning. Patient is awake and is pleasant this morning with euthymic affect. She is coloring with Avis with the one-to-one this morning. Patient reports that she felt very alone yesterday and hopeless which is why she decided to attempt overdosing. Overall she seems to be feeling well but she does have some weird chest sensation as she describes as chest lightness but she is not having any pain or shortness of breath. Patient ate breakfast this morning without difficulty. No nausea or vomiting. No headache. No other complaints this morning. Review of Systems Review of Systems: All systems reviewed & are unremarkable except as noted in HPI & below Physical Exam Constitutional: WD/WN, vitals as above + obese Eyes: + anicteric sclerae Neck: trachea midline, no thyromegaly Respiratory: normal respiratory effort, lungs clear to auscultation Cardiovascular: RRR, no murmur, no edema Gastrointestinal (Abdomen): normal bowel sounds, soft, nontender, no hepatosplenomegaly Musculoskeletal: Head/Neck/Chest: head atraumatic Skin: no rashes, warm and dry Psychiatric: Orientation: alert and oriented x 3 Eye Contact: good eye contact Results & Data Results & Data ([facility]) Vital Signs (Past 12 Hours) Vital Signs Temp Pulse Pulse Resp BP BP Pulse Ox 07/20/22 07:35 85 07/20/22 06:18 07/20/22 06:18 36.8 C 93 H 18 129/83 99 07/20/22 05:38 21 135/105 H 99 07/20/22 03:51 82 23 110/73 98 07/20/22 02:39 76 20 117/79 97 07/20/22 01:31 77 20 103/89 97 07/20/22 00:34 84 20 116/79 98 07/19/22 23:00 87 18 131/90 98 07/19/22 22:00 84 14 106/68 99 07/19/22 21:28 79 20 104/67 99 07/19/22 20:11 82 17 07/19/22 20:11 99/62 L 07/19/22 20:10 82 17 07/19/22 20:00 80 23 07/19/22 19:50 78 22 07/19/22 19:40 87 20 Pulse Ox O2 Del Method O2 Del Method 07/20/22 07:35 07/20/22 06:18 99 Room Air 07/20/22 06:18 Room Air 07/20/22 05:38 Room Air 07/20/22 03:51 Room Air 07/20/22 02:39 Room Air 07/20/22 01:31 Room Air 07/20/22 00:34 Room Air 07/19/22 23:00 07/19/22 22:00 07/19/22 21:28 07/19/22 20:11 07/19/22 20:11 07/19/22 20:10 07/19/22 20:00 12/17/22 19:50 07/19/22 19:40
[2022-07-20] MEDS: SODIUM CHLORIDE 0.9% 1000ML 1,000 ML IV SCH ×2 (09:54→18:22)
--- NOTE | 2022-07-20 15:27 | Psychiatric Consultation ---
Date of Consultation July 20, 2022 Impression / Recommendations Impression 21 yo female with a history of mood dysregulation, complex trauma hx, worsening depression on transition to living indpendently as an adult, limited coping skills tested by ACL repair. (1) QT prolongation: (2) Intentional overdose: (3) MDD (major depressive disorder), recurrent episode, severe: (4) Post traumatic stress disorder (PTSD): (5) S/P ACL reconstruction: Plan continue 1 on pending medical clearance and voluntary psych placement, given OD and risk factors is unable to leave AMA. I believe patient is almost due for Abilify MORELOS but will need to give late given OD agree with hold psych meds though if needs rx for anxiety would support low dose Ativan or Buspar prn. Psych History Identifying Data 21 yo female from [place], recent discharge from on 07/16/22, readmit to hospitalist service following intention OD Vistaril and Lexapro. Chief Complaint QTc prolongation History of Present Illness Patient has been experiencing gradual decline since her ACL repair last month. She lives alone and was relocated to [place] from [facility] and some of her personal items were misplaced (her i pad) so limited activities she can do at home. Despite compliance with MORELOS Abilify and meds she was having thoughts to OD on pain meds and/or reaction to toradol and presented to [facility] earlier this month with SI and visual fisher of seeing arrows around lights. She also doesn't get out as much as [place]. She has a variety of community supports (CM, med management, peers support) but otherwise no family support having aged out of services. She continued to feel hopeless and lonely following her discharge on 07/16/22 and ingested unclear amount of remaining Vistaril and Lexapro as an OD attempt and was admitted for telemetry monitoring for consistently prolonged QTc on EKG. Allergies Allergy/AdvReac Type Severity Reaction Status Date / Time risperidone Allergy Intermediate Verified 06/25/22 09:14 Home Medications Medication Instructions Recorded Confirmed Type aripiprazole 400 mg intramuscular 400 mg IM MONTHLY 04/07/21 07/19/22 History suspension,extended release (Abilify Maintena) ondansetron HCl 4 mg tablet 4 mg PO Q6H PRN nausea and 06/25/22 07/19/22 Rx vomiting #12 tabs acetaminophen 500 mg tablet 500 mg PO Q6H PRN pain #30 tabs 07/04/22 07/19/22 Rx tramadol 100 mg tablet 100 mg PO Q6H #30 tabs 07/04/22 07/19/22 Rx buspirone 5 mg tablet 5 mg PO BID KYLIE 30 days #60 tabs 07/16/22 07/19/22 Rx escitalopram oxalate 20 mg tablet 20 mg PO QAM MDD 30 days #30 tabs 07/16/22 07/19/22 Rx hydroxyzine HCl 25 mg tablet 25 mg PO BID PRN anxiety/insomnia 07/16/22 07/19/22 Rx 30 days #60 tabs lamotrigine 25 mg tablet (Lamictal) 25 mg PO QAM BPAD 30 days #30 tabs 07/16/22 07/19/22 Rx olanzapine 5 mg tablet 5 mg PO HS MDD with psychosis 30 07/16/22 07/19/22 Rx days #30 tabs topiramate 25 mg tablet 25 mg PO QAM LOUIS 30 days #30 tabs 07/16/22 07/19/22 Rx Personal History Beliefs That Will Affect Care: None Patient History Medical History Acute medial meniscus tear of right knee Adjustment disorder with depressed mood COVID-19 diagnosed 06/02/22 @ [facility]--states she hospitalized at [facility] for 3 days at the time for suicidal ideations--severe cough with mucous, headache--no symptoms now Depression Depression with suicidal ideation recent admission for this @ [facility] 06/02/22 Gastric polyp History of anesthesia reaction difficulty waking after EGD Low TSH level Major depressive disorder with psychotic features Partial tear of anterior cruciate ligament of knee Post traumatic stress disorder (PTSD) Right ACL tear Suicidal ideation recent admission to [facility] for this 06/02/22 Surgical History H/O esophagogastroduodenoscopy Family History Unknown Adopted Other Family history not known due to adoption Social History Smoking Status: Never smoker Second Hand Exposure: No; Hx Alcohol Use: No Hx Substance Use: No Preferred Language: Sierra Leonean Communication Ability: Effective Cigar Binder Required: No Beliefs That Will Affect Care: None Current Living Situation: Alone Other Information That Helps Us Care for You: No Feels Safe at Home: No Is there a partner from a previous relationship who is making you feel unsafe now?: No Any Concerns about Your Family Situation: No Would You Like to Speak to Someone About Your Situation: Yes Safety Concerns: Afraid for Self Assistive Devices: Glasses Physical Exam Psychiatric: Orientation: alert and oriented x 3 Apperance: appropriately groomed Eye Contact: good eye contact Motor Behavior: no abnormal motor movements Speech: normal rate/rhythm/volume of speech Affect: + depressed affect Mood: + depressed mood Thought Process: + concrete thought process Thought Content: reality based without delusions Suicidal Thoughts: denies suicidal thoughts (in hospital, can't safety plan) Homicidal Thoughts: denies homicidal thoughts Hallucinations: no auditory hallucinations and no visual hallucinations Cognition: attention grossly intact and language grossly intact Estimated Intelligence: consistent with education level Insight: + limited insight Judgement: + limited judgement Vital Signs (Past 24 Hours): Last Vital Signs Temp 36.9 C 07/20/22 15:15 Pulse 82 07/20/22 15:15 Resp 19 07/20/22 15:15 BP 113/76 07/20/22 15:15 Pulse Ox 99 07/20/22 15:15 O2 Del Method 07/20/22 15:15 Review of Systems All systems reviewed & are unremarkable except as noted in HPI & below Results & Data (PSY) Laboratory Results 07/19/22 07/19/22 07/19/22 Range/Units 19:18 15:57 15:42 WBC (4.8-10.8) K/ul RBC (3.93-5.22) M/uL Hgb (12.0-16.0) g/dl Hct (34.1-44.9) % MCV (80.0-100.0) fL MCH (25.0-34.0) pg MCHC (32.0-36.0) g/dL RDW Std Deviation (36.4-46.3) fL RDW Coeff of Anali (11.5-14.5) % Plt Count (130-400) K/uL MPV (9.4-12.3) fL Immature Gran % (Auto) % Neut % (Auto) % Lymph % (Auto) % Glasscock % (Auto) % Eos % (Auto) % Baso % (Auto) % Neut # (Auto) (1.4-6.5) K/uL Lymph # (Auto) (1.2-3.4) K/uL Glasscock # (Auto) (0.24-0.82) K/uL Eos # (Auto) (0-0.50) K/uL Baso # (Auto) (0-0.2) K/uL Immature Gran # (Auto) (0.00-0.02) K/uL Sodium (136-145) mmol/L Potassium (3.5-5.1) mmol/L Chloride (98-107) mmol/L Carbon Dioxide (21-32) mmol/L Anion Gap (3-11) BUN (6-23) mg/dl Creatinine (0.6-1.2) mg/dl Est Cr Clr Drug Dosing ml/min Est GFR ( Amer) ml/min Est GFR (Non-Af Amer) ml/min BUN/Creatinine Ratio (10-20) Glucose (70-99(Fasting)) mg/dl Calcium (8.5-10.1) mg/dl Magnesium (1.7-2.4) mg/dl Total Bilirubin (0.2-1.0) mg/dl AST (13-39) U/L ALT (7-52) U/L Alkaline Phosphatase (34-104) U/L Total Protein (6.0-8.3) gm/dl Albumin (3.4-5.0) gm/dl Globulin (2.5-4.0) gm/dl Albumin/Globulin Ratio (0.9-2) HCG, Qual (Negative) Salicylates (3.0-30) mg/dl Urine Opiates Screen Neg (Neg) Ur Methadone, Qual Neg (Neg) Acetaminophen (10-30) ug/ml Urine Barbiturates Neg (Neg) Lamotrigine Pending Ur Phencyclidine (PCP) Neg (Neg) U Amphetamin/Meth Scrn Neg (Neg) MDMA (Ecstasy) Screen Neg (Neg) U Benzodiazepines Scrn Neg (Neg) Ur Cocaine Metabolite Neg (Neg) U Marijuana (THC) Screen Neg (Neg) Ethyl Alcohol mg/dL (<10.0) mg/dl SARS-CoV-2, RNA, NAAT NEGATIVE (NEGATIVE) 07/19/22 07/19/22 07/19/22 Range/Units 15:42 15:42 15:42 WBC (4.8-10.8) K/ul RBC (3.93-5.22) M/uL Hgb (12.0-16.0) g/dl Hct (34.1-44.9) % MCV (80.0-100.0) fL MCH (25.0-34.0) pg MCHC (32.0-36.0) g/dL RDW Std Deviation (36.4-46.3) fL RDW Coeff of Anali (11.5-14.5) % Plt Count (130-400) K/uL MPV (9.4-12.3) fL Immature Gran % (Auto) % Neut % (Auto) % Lymph % (Auto) % Glasscock % (Auto) % Eos % (Auto) % Baso % (Auto) % Neut # (Auto) (1.4-6.5) K/uL Lymph # (Auto) (1.2-3.4) K/uL Glasscock # (Auto) (0.24-0.82) K/uL Eos # (Auto) (0-0.50) K/uL Baso # (Auto) (0-0.2) K/uL Immature Gran # (Auto) (0.00-0.02) K/uL Sodium (136-145) mmol/L Potassium (3.5-5.1) mmol/L Chloride (98-107) mmol/L Carbon Dioxide (21-32) mmol/L Anion Gap (3-11) BUN (6-23) mg/dl Creatinine (0.6-1.2) mg/dl Est Cr Clr Drug Dosing ml/min Est GFR ( Amer) ml/min Est GFR (Non-Af Amer) ml/min BUN/Creatinine Ratio (10-20) Glucose (70-99(Fasting)) mg/dl Calcium (8.5-10.1) mg/dl Magnesium (1.7-2.4) mg/dl Total Bilirubin (0.2-1.0) mg/dl AST (13-39) U/L ALT (7-52) U/L Alkaline Phosphatase (34-104) U/L Total Protein (6.0-8.3) gm/dl Albumin (3.4-5.0) gm/dl Globulin (2.5-4.0) gm/dl Albumin/Globulin Ratio (0.9-2) HCG, Qual Negative (Negative) Salicylates < 3.0 L (3.0-30) mg/dl Urine Opiates Screen (Neg) Ur Methadone, Qual (Neg) Acetaminophen < 3 L (10-30) ug/ml Urine Barbiturates (Neg) Lamotrigine Ur Phencyclidine (PCP) (Neg) U Amphetamin/Meth Scrn (Neg) MDMA (Ecstasy) Screen (Neg) U Benzodiazepines Scrn (Neg) Ur Cocaine Metabolite (Neg) U Marijuana (THC) Screen (Neg) Ethyl Alcohol mg/dL < 10.0 (<10.0) mg/dl SARS-CoV-2, RNA, NAAT (NEGATIVE) 07/19/22 07/19/22 Range/Units 15:42 15:42 WBC 8.12 (4.8-10.8) K/ul RBC 4.36 (3.93-5.22) M/uL Hgb 13.4 (12.0-16.0) g/dl Hct 38.2 (34.1-44.9) % MCV 87.6 (80.0-100.0) fL MCH 30.7 (25.0-34.0) pg MCHC 35.1 (32.0-36.0) g/dL RDW Std Deviation 44.0 (36.4-46.3) fL RDW Coeff of Anali 13.7 (11.5-14.5) % Plt Count 495 H (130-400) K/uL MPV 9.1 L (9.4-12.3) fL Immature Gran % (Auto) 0.4 % Neut % (Auto) 66.6 % Lymph % (Auto) 24.8 % Glasscock % (Auto) 7.6 % Eos % (Auto) 0.5 % Baso % (Auto) 0.1 % Neut # (Auto) 5.41 (1.4-6.5) K/uL Lymph # (Auto) 2.01 (1.2-3.4) K/uL Glasscock # (Auto) 0.62 (0.24-0.82) K/uL Eos # (Auto) 0.04 (0-0.50) K/uL Baso # (Auto) 0.01 (0-0.2) K/uL Immature Gran # (Auto) 0.03 H (0.00-0.02) K/uL Sodium 138 (136-145) mmol/L Potassium 3.6 (3.5-5.1) mmol/L Chloride 106 (98-107) mmol/L Carbon Dioxide 23 (21-32) mmol/L Anion Gap 9 (3-11) BUN 13 (6-23) mg/dl Creatinine 0.73 (0.6-1.2) mg/dl Est Cr Clr Drug Dosing 115.0 ml/min Est GFR ( Amer) 136.5 ml/min Est GFR (Non-Af Amer) 117.7 ml/min BUN/Creatinine Ratio 17.8 (10-20) Glucose 119 H (70-99(Fasting)) mg/dl Calcium 8.8 (8.5-10.1) mg/dl Magnesium 2.1 (1.7-2.4) mg/dl Total Bilirubin 0.3 (0.2-1.0) mg/dl AST 12 L (13-39) U/L ALT 16 (7-52) U/L Alkaline Phosphatase 94 (34-104) U/L Total Protein 7.4 (6.0-8.3) gm/dl Albumin 4.0 (3.4-5.0) gm/dl Globulin 3.4 (2.5-4.0) gm/dl Albumin/Globulin Ratio 1.2 (0.9-2) HCG, Qual (Negative) Salicylates (3.0-30) mg/dl Urine Opiates Screen (Neg) Ur Methadone, Qual (Neg) Acetaminophen (10-30) ug/ml Urine Barbiturates (Neg) Lamotrigine Ur Phencyclidine (PCP) (Neg) U Amphetamin/Meth Scrn (Neg) MDMA (Ecstasy) Screen (Neg) U Benzodiazepines Scrn (Neg) Ur Cocaine Metabolite (Neg) U Marijuana (THC) Screen (Neg) Ethyl Alcohol mg/dL (<10.0) mg/dl SARS-CoV-2, RNA, NAAT (NEGATIVE) Medications Administered Sodium Chloride (Nss 1000ml) 1,000 mls @ 125 mls/hr IV .Q8H IFEOMA Stop: 08/18/22 15:59 Last Admin: 07/20/22 09:54 Dose: 125 mls/hr Documented By: Infusion: 07/20/22 07:32 Dose: 125 mls/hr Documented By: Admin: 07/19/22 23:32 Dose: 125 mls/hr Documented By: Infusion: 07/19/22 23:32 Dose: 125 mls/hr Documented By: Admin: 07/19/22 16:02 Dose: 125 mls/hr Documented By: KT Coding Level of Care Code 26797 [facility] Intl Hosp Care Lvl 2 Diagnoses QT prolongation R94.31 Intentional overdose T50.902A MDD (major depressive disorder), recurrent episode, severe F33.2 Post traumatic stress disorder (PTSD) F43.10 S/P ACL reconstruction Z98.890
[2022-07-20] MEDS ORDERED: LORazepam 0.5 MG TAB PO PRN (16:19)
--- NOTE | 2022-07-20 19:38 | Billing Data ---
Date of Service July 20, 2022 Coding Level of Care Code 03046 Initial Inpt Care Lvl 2
[2022-07-20] MEDS ORDERED: POTASSIUM CHLORIDE CRTAB 20 MEQ TABCR PO STA (22:32)
[2022-07-21] MEDS: SODIUM CHLORIDE 0.9% 1000ML 1,000 ML IV SCH ×2 (01:38→10:13)
--- NOTE | 2022-07-21 05:22 | Electrocardiogram Report ---
Test Reason : Blood Pressure : / mmHG Vent. Rate : 098 BPM Atrial Rate : 098 BPM P-R Int : 102 ms QRS Dur : 078 ms QT Int : 384 ms P-R-T Axes : 041 054 039 degrees QTc Int : 490 ms Sinus rhythm with short NE Normal ECG When compared with ECG of 02-JUN-2022 18:52, No significant change was found Confirmed by Mau Hanna ([id number]) on 07/21/2022 5:22:37 AM Referred By: REFERRED SELF Confirmed By:Mau Hanna
--- NOTE | 2022-07-21 05:24 | Electrocardiogram Report ---
Test Reason : Blood Pressure : / mmHG Vent. Rate : 102 BPM Atrial Rate : 102 BPM P-R Int : 100 ms QRS Dur : 078 ms QT Int : 396 ms P-R-T Axes : 042 057 040 degrees QTc Int : 516 ms Sinus tachycardia with short NV Nonspecific T wave abnormality Abnormal ECG When compared with ECG of 19-JUL-2022 15:53, (unconfirmed) No significant change was found Confirmed by Mau Hanna ([id number]) on 07/21/2022 5:24:35 AM Referred By: REFERRED SELF Confirmed By:Mau Hanna
--- NOTE | 2022-07-21 05:31 | Electrocardiogram Report ---
Test Reason : Blood Pressure : / mmHG Vent. Rate : 110 BPM Atrial Rate : 110 BPM P-R Int : 096 ms QRS Dur : 084 ms QT Int : 488 ms P-R-T Axes : 007 -03 014 degrees QTc Int : 660 ms Poor data quality, interpretation may be adversely affected Suspect L arm L leg lead reversal Sinus tachycardia with short IL Moderate voltage criteria for LVH, may be normal variant Abnormal ECG When compared with ECG of 19-JUL-2022 16:25, (unconfirmed) No significant change taking lead reversal into account Confirmed by Mau Hanna ([id number]) on 07/21/2022 5:31:14 AM Referred By: REFERRED SELF Confirmed By:Mau Hanna
--- NOTE | 2022-07-21 05:44 | Electrocardiogram Report ---
Test Reason : Blood Pressure : / mmHG Vent. Rate : 074 BPM Atrial Rate : 074 BPM P-R Int : 098 ms QRS Dur : 086 ms QT Int : 464 ms P-R-T Axes : 004 054 033 degrees QTc Int : 515 ms Sinus rhythm with short NH Nonspecific T wave abnormality Prolonged QT Abnormal ECG When compared with ECG of 19-JUL-2022 17:27, (unconfirmed) Vent. rate has decreased BY 36 BPM Prior tracing has leas reversal Confirmed by Mau Hanna ([id number]) on 07/21/2022 5:43:37 AM Referred By: REFERRED SELF Confirmed By:Mau Hanna
--- NOTE | 2022-07-21 05:45 | Electrocardiogram Report ---
Test Reason : Blood Pressure : / mmHG Vent. Rate : 075 BPM Atrial Rate : 075 BPM P-R Int : 100 ms QRS Dur : 086 ms QT Int : 468 ms P-R-T Axes : 008 049 031 degrees QTc Int : 522 ms Sinus rhythm with short HI Prolonged QT Abnormal ECG When compared with ECG of 19-JUL-2022 22:41, (unconfirmed) No significant change was found Confirmed by Mau Hanna ([id number]) on 07/21/2022 5:45:47 AM Referred By: REFERRED SELF Confirmed By:Mau Hanna
--- NOTE | 2022-07-21 05:52 | Electrocardiogram Report ---
Test Reason : Blood Pressure : / mmHG Vent. Rate : 077 BPM Atrial Rate : 077 BPM P-R Int : 092 ms QRS Dur : 084 ms QT Int : 476 ms P-R-T Axes : 009 050 033 degrees QTc Int : 538 ms Sinus rhythm with short IN Nonspecific T wave abnormality Prolonged QT Abnormal ECG When compared with ECG of 19-JUL-2022 23:40, (unconfirmed) No significant change was found Confirmed by Mau Hanna ([id number]) on 07/21/2022 5:52:18 AM Referred By: REFERRED SELF Confirmed By:Mau Hanna
--- NOTE | 2022-07-21 06:01 | Electrocardiogram Report ---
Test Reason : Blood Pressure : / mmHG Vent. Rate : 084 BPM Atrial Rate : 084 BPM P-R Int : 120 ms QRS Dur : 088 ms QT Int : 450 ms P-R-T Axes : 045 046 032 degrees QTc Int : 531 ms Normal sinus rhythm Prolonged QT Abnormal ECG When compared with ECG of 20-JUL-2022 01:28, (unconfirmed) No significant change was found Confirmed by Mau Hanna ([id number]) on 07/21/2022 6:01:11 AM Referred By: REFERRED SELF Confirmed By:Mau Hanna
--- NOTE | 2022-07-21 06:20 | Electrocardiogram Report ---
Test Reason : Blood Pressure : / mmHG Vent. Rate : 084 BPM Atrial Rate : 084 BPM P-R Int : 106 ms QRS Dur : 084 ms QT Int : 464 ms P-R-T Axes : 049 060 049 degrees QTc Int : 548 ms Sinus rhythm with short KS Prolonged QT Abnormal ECG When compared with ECG of 20-JUL-2022 06:48, (unconfirmed) No significant change was found Confirmed by Mau Hanna ([id number]) on 07/21/2022 6:19:54 AM Referred By: REFERRED SELF Confirmed By:Mau Hanna
[2022-07-21] MEDS ORDERED: LORazepam 1 MG in SYRINGE 0 ML IV STA (07:08)
[2022-07-21 07:17] LABS: Basophils # (auto) 0.03 K/uL (0-0.2); Basophils % (auto) 0.5 %; Eosinophils % (auto) 1.7 %; Hematocrit (blood only) 39.3 % (34.1-44.9); Hemoglobin 12.9 g/dl (12.0-16.0); Immature Granulocytes # (auto) 0.03 K/uL (0.00-0.02); Immature Granulocytes % (auto) 0.5 %; Lymphocytes # (auto) 1.84 K/uL (1.2-3.4); Lymphocytes % (auto) 31.1 %; Mean Corpuscular Hgb Conc 32.8 g/dL (32.0-36.0); Mean Corpuscular Volume 88.3 fL (80.0-100.0); Mean Platelet Volume 8.9 fL (9.4-12.3); Monocytes # (auto) 0.49 K/uL (0.24-0.82); Monocytes % (auto) 8.3 %; Neutrophils # (auto) 3.43 K/uL (1.4-6.5); Neutrophils % (auto) 57.9 %; Platelet Count 371 K/uL (130-400); RDW Coefficient of Variation 14.4 % (11.5-14.5); RDW Standard Deviation 46.4 fL (36.4-46.3); Red Blood Count 4.45 M/uL (3.93-5.22); White Blood Count 5.92 K/ul (4.8-10.8)
--- NOTE | 2022-07-21 07:32 | Hospitalist Progress Note ---
Date of Service July 21, 2022 Assessment & Plan (1) QT prolongation: Plan: 21yo female with complicated psychiatric history including PTSD, bipolar disorder, psychosis, past instances of active SI who presented after an intentional overdose with escitalopram and hydroxyzine. Admission recommended for monitoring of prolonged QT. 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 without signs of arrhythmia continue cardiac monitoring Half-life of lexapro is ~28hrs, hydroxyzine is ~20hrs; anticipate QTc improvement through 07/20 and 07/21 Continue to hold home medication regimen until QTc normalizes UDS negative Trend BMP, serum magnesium 07/21: discussed with attending psychiatrist, who recommended: Restarting buspar 5mg bid with meals Repeat EKG after dinner If QTc remains <500, patient will be medically cleared for transfer to the behavioral health unit Parasuicidal behavior, MDD Management as above Nausea Patient had a brief episode of nausea on 07/21 in the morning Resolved with ativan 1mg IV (x1) If recurs, caution with antiemetic choice given that most prolong QTc Continue to monitor FEN: regular diet Code status: full code DVT ppx: SCDs Consults: psychiatry Dispo: PCU (2) Intentional overdose: (3) MDD (major depressive disorder): (4) Post traumatic stress disorder (PTSD): (5) Depression with suicidal ideation: Admission and Anticipated Discharge Date Admission Date: July 20, 2022 Supervising Physician Co-Signing Physician Notes I personally examined the patient and verified all gallardo points of history and exam, discussed case, and agree with decision making with Dr Morillo Feeling better. Happy that she is likely to go to inpatient psych today. Is a late addendumEKG with improved and reassuring QTCfor inpatient psych today. Vitals noted, in general she is awake and alert pleasant no distress. HEENT normocephalic atraumatic mucous membranes moist. Breathing unlabored no accessory muscle use good effort. Skin shows no rashes no pallor or icterus. Depression with overdoseQTC shortening, stable for transfer to inpatient psych. Otherwise as above Subjective Patient seen and evaluated at bedside this morning. Patient is watching TV and has a 1-1 sitter at bedside. Patient feels well at this time and denies any acute complaints. Patient did have an episode of nausea this morning which resolved after receiving ativan 1mg IV. Patient denies CP, SOB, abdominal pain, vomiting, lightheadedness, dizziness, and diarrhea. Review of Systems Review of Systems: See HPI Physical Exam Physical Exam: Constitutional: well-appearing, no acute distress CV: extremities well-perfused Resp: breathing non-labored Skin: faint excoriation scars noted on chest and lower back bilaterally Neuro: alert, oriented, no focal neurologic deficit appreciated Appearance: fairly-groomed, wearing hospital gown Behavior: calm, cooperative, eye contact good Mood: "okay" Affect: pleasant, affect congruent with mood Speech: appropriate rate/quantity/volume Thought process: linear, coherent Thought content: appropriate to topic of discussion, denies SI/HI Results & Data Results & Data ([facility]) Vital Signs (Past 12 Hours) Vital Signs Temp Pulse Pulse Resp BP BP Pulse Ox 07/21/22 02:34 36.3 C L 77 16 106/73 99 07/20/22 23:37 69 07/20/22 22:42 36.8 C 70 14 110/76 100 07/20/22 20:21 36.9 C 84 18 109/74 98 O2 Del Method 07/21/22 02:34 Room Air 07/20/22 23:37 07/20/22 22:42 Room Air 07/20/22 20:21 Room Air Resident Activity Tracking Resident Involvement: Resident Care Provided Care Provided: Adult [facility] Medicine
[2022-07-21 08:31] LABS: Albumin Globulin Ratio 1.3 (0.9-2); Albumin Level 4.1 gm/dl (3.4-5.0); BUN Creatinine Ratio 12.9 (10-20); Bilirubin,Total 0.3 mg/dl (0.2-1.0); Calcium 8.8 mg/dl (8.5-10.1); Creatinine Clr Calc Pharmacy 119.2 ml/min; Est GFR (African American) 143.5 ml/min; Est GFR (Non-African American) 123.9 ml/min; Globulin 3.2 gm/dl (2.5-4.0); Potassium 4.6 mmol/L (3.5-5.1); Total Protein 7.3 gm/dl (6.0-8.3)
[2022-07-21] MEDS ORDERED: busPIRone 5 MG TAB PO SCH (12:00)
--- NOTE | 2022-07-21 13:01 | Communication Note ---
Date of Service: July 21, [address] Morillo. Will resume Buspar 5 mg BID with meals and repeat EKG after 2 doses for anticipated transfer later pm if QTc remains st able. Liaison updated.
--- NOTE | 2022-07-21 18:08 | Discharge Summary ---
Date of Service July 21, 2022 Admission HPI Per Admitting Provider Liberty Carlton is a 21-year-old female with complicated psychiatric history including PTSD, bipolar disorder, psychosis, past instances of active SI who presented due to an intentional overdose with escitalopram and hydroxyzine. The patient admitted to having ingested all her remaining escitalopram and hydroxyzine pills she had filled both prescriptions on July 16. She does admit to higher level of depression and suicidal ideation as of late. She denies any additional medication ingestion or any illicit drugs. She did complain of some nausea and chest discomfort, for which she had an initial EKG showing QT prolongation. Successive EKGs have shown worsening QT prolongation, for which the patient was administered a total of 4 g magnesium sulfate in the ED. Poison control was contacted and recommended serial EKGs every 6 hours. Patient's lab work was largely unremarkable with negative tox screen, normal electrolytes. Magnesium level of 2.1. At time of my evaluation, patient is resting comfortably. She is alert and conversing appropriately, still reporting some anterior chest discomfort. She mentioned that her pain was recreated even with light touch of my stethoscope. Also reports a mild headache. Currently denying nausea, palpitations, shortness of breath, weakness, numbness, tingling, fever, chills, diaphoresis, tremors. Admission Exam Per Admitting Provider GENERAL: A&Ox3. NAD. HEENT: PERRL, EOMI. Moist mucous membranes. CHEST/LUNGS: CTAB A/P. No crackles, wheezes, rales, rhonchi. HEART: RRR. No m/g/r. No carotid bruits. ABDOMEN: NT/ND, soft. BS+ x4 EXTREMITIES: No cyanosis, no clubbing, no edema SKIN: Warm and dry. No rashes or lesions. PSYCHIATRIC: Euthymic affect, no SI, no pressured speech, no hallucinations NEUROLOGIC: No FND. Principal Diagnosis Intentional overdose, SSRI toxicity, anticholinergic toxicity, QTc prolongation Discharge Exam Constitutional: well-appearing, no acute distress CV: extremities well-perfused Resp: breathing non-labored Skin: faint excoriation scars noted on chest and lower back bilaterally Neuro: alert, oriented, no focal neurologic deficit appreciated Appearance: fairly-groomed, wearing hospital gown Behavior: calm, cooperative, eye contact good Mood: "okay" Affect: pleasant, affect congruent with mood Speech: appropriate rate/quantity/volume Thought process: linear, coherent Thought content: appropriate to topic of discussion, denies SI/HI Discharge Data Allergies Allergy/AdvReac Type Severity Reaction Status Date / Time risperidone Allergy Intermediate Verified 06/25/22 09:14 Consultations 07/20/22 02:50 ED Decision to Admit Stat 07/20/22 06:49 Consult Psychiatry Routine Ordered Studies 07/19/22 17:39 CT angio chest PE protocol Stat Hospital Course (1) QT prolongation: 21yo female with complicated psychiatric history including PTSD, bipolar disorder, psychosis, past instances of active SI who presented after an intentional overdose with escitalopram and hydroxyzine. Admission recommended for monitoring of prolonged QT. 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 of arrhythmia continue cardiac monitoring Half-life of lexapro is ~28hrs, hydroxyzine is ~20hrs; anticipate QTc improvement through 07/20 and 07/21 Continue to hold home medication regimen until QTc normalizes UDS negative Trend BMP, serum magnesium 07/21: discussed with attending psychiatrist, who recommended: Restarting buspar 5mg bid with meals Repeat EKG after dinner - QTc 491 - patient is medically cleared for transfer to the behavioral health unit Parasuicidal behavior, MDD Management as above Nausea Patient had a brief episode of nausea on 07/21 in the morning Resolved with ativan 1mg IV (x1) If recurs, caution with antiemetic choice given that most prolong QTc Continue to monitor (2) Intentional overdose: (3) MDD (major depressive disorder): (4) Post traumatic stress disorder (PTSD): (5) Depression with suicidal ideation: Total Time Total Time Spent Total Time Spent (In Minutes): <30 Discharge Plan Discharge Items Patient Disposition: Transfer Behavioral Health Fac Reason For Visit: INTENTIONAL OVERDOSE Discharge Diagnosis: intentional overdose of lexapro and hydroxyzine, QTc prolongation Activity: Resume your previous activity Non-emergency contact: Primary Care Provider and Psychiatrist Call non-emergency contact if: you have any medication questions and your symptoms worsen Follow-up/Referrals: Melody Mcpherson DO [Primary Care Provider] - Diet: Regular Addtl Attending Provider Instructions: 21yo female with complicated psychiatric history including PTSD, bipolar disorder, psychosis, past instances of active SI who presented after an intentional overdose with escitalopram and hydroxyzine. Admission recommended for monitoring of prolonged QT. 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 of arrhythmia continue cardiac monitoring Half-life of lexapro is ~28hrs, hydroxyzine is ~20hrs; anticipate QTc improvement through 07/20 and 07/21 Continue to hold home medication regimen until QTc normalizes UDS negative Trend BMP, serum magnesium 07/21: discussed with attending psychiatrist, who recommended: Restarting buspar 5mg bid with meals Repeat EKG after dinner - QTc 491 - patient is medically cleared for transfer to the behavioral health unit Parasuicidal behavior, MDD Management as above Nausea Patient had a brief episode of nausea on 07/21 in the morning Resolved with ativan 1mg IV (x1) If recurs, caution with antiemetic choice given that most prolong QTc Pending Studies at Discharge: No Stand-Alone Forms: My [facility] Medications and DC Order Prescriptions: Continued Abilify Maintena 400 mg suspension,extended rel recon 400 mg IM MONTHLY escitalopram oxalate 20 mg Tablet 20 mg PO QAM 30 Days Qty: 30 0RF olanzapine 5 mg Tablet 5 mg PO HS 30 Days Qty: 30 0RF topiramate 25 mg Tablet 25 mg PO QAM 30 Days Qty: 30 0RF buspirone 5 mg Tablet 5 mg PO BID 30 Days Qty: 60 0RF hydroxyzine HCl 25 mg Tablet 25 mg PO BID PRN (Reason: anxiety/insomnia) 30 Days Qty: 60 0RF lamotrigine [Lamictal] 25 mg Tablet 25 mg PO QAM 30 Days Qty: 30 0RF ondansetron HCl 4 mg tablet 4 mg PO Q6H PRN (Reason: nausea and vomiting) Qty: 12 0RF tramadol 100 mg tablet 100 mg PO Q6H Qty: 30 0RF acetaminophen 500 mg tablet 500 mg PO Q6H PRN (Reason: pain) Qty: 30 0RF Discharge Orders: Discharge Order (Routine); Ordered 07/21/22 Ordered By: Pedro Morillo Admission Data Admit Date/Time: 07/20/22 03:08 Attending Provider: Albert Tan Admit Provider: Roel Newton Primary Care Provider: Melody Mcpherson Other Providers: Geno Saldana ; Millie Sadler ; Kierra Call ; Le James Other Interventions: Discharge Summary Assessment (RN) Last Done: 07/21/22 18:07 Supervising Physician Co-Signing Physician Notes I personally examined the patient and verified all gallardo points of history and exam, discussed case, and agree with decision making with Dr Morillo Feeling better. Happy that she is likely to go to inpatient psych today. Is a late addendumEKG with improved and reassuring QTCfor inpatient psych today. Vitals noted, in general she is awake and alert pleasant no distress. HEENT normocephalic atraumatic mucous membranes moist. Breathing unlabored no accessory muscle use good effort. Skin shows no rashes no pallor or icterus. Depression with overdoseQTC shortening, stable for transfer to inpatient psych. Otherwise as above Resident Activity Tracking Resident Involvement: Resident Care Provided Care Provided: Adult Hospital Medicine
--- NOTE | 2022-07-21 20:13 | Billing Data ---
Date of Service July 21, 2022 Coding Level of Care Code D/C DAY MANAGEMENT <30 MINS
--- NOTE | 2022-07-21 20:14 | Billing Data ---
Date of Service July 21, 2022 Coding Level of Care Code D/C DAY MANAGEMENT <30 MINS
--- NOTE | 2022-07-22 06:54 | Electrocardiogram Report ---
Test Reason : Blood Pressure : / mmHG Vent. Rate : 071 BPM Atrial Rate : 071 BPM P-R Int : 116 ms QRS Dur : 088 ms QT Int : 478 ms P-R-T Axes : 048 054 048 degrees QTc Int : 519 ms Normal sinus rhythm Prolonged QT Abnormal ECG When compared with ECG of 20-JUL-2022 14:05, No significant change was found Confirmed by Bradford Joseph ([id number]) on 07/22/2022 6:54:09 AM Referred By: REFERRED SELF Confirmed By:Bradford Joseph
--- NOTE | 2022-07-22 21:55 | Electrocardiogram Report ---
Test Reason : Blood Pressure : / mmHG Vent. Rate : 068 BPM Atrial Rate : 068 BPM P-R Int : 114 ms QRS Dur : 078 ms QT Int : 474 ms P-R-T Axes : 041 056 047 degrees QTc Int : 504 ms Normal sinus rhythm Prolonged QT Abnormal ECG When compared with ECG of 20-JUL-2022 22:38, No significant change was found Confirmed by Bradford Joseph ([id number]) on 07/22/2022 9:55:32 PM Referred By: REFERRED SELF Confirmed By:Bradford Joseph
--- NOTE | 2022-07-22 22:23 | Electrocardiogram Report ---
Test Reason : Blood Pressure : / mmHG Vent. Rate : 077 BPM Atrial Rate : 077 BPM P-R Int : 122 ms QRS Dur : 080 ms QT Int : 434 ms P-R-T Axes : 051 044 037 degrees QTc Int : 491 ms Normal sinus rhythm Prolonged QT Abnormal ECG When compared with ECG of 21-JUL-2022 06:10, No significant change was found Confirmed by Bradford Joseph ([id number]) on 07/22/2022 10:22:44 PM Referred By: REFERRED SELF Confirmed By:Bradford Joseph
--- NOTE | 2022-07-23 21:26 | Electrocardiogram Report ---
Test Reason : Blood Pressure : / mmHG Vent. Rate : 077 BPM Atrial Rate : 077 BPM P-R Int : 114 ms QRS Dur : 084 ms QT Int : 434 ms P-R-T Axes : 034 044 033 degrees QTc Int : 491 ms Normal sinus rhythm Prolonged QT Abnormal ECG When compared with ECG of 21-JUL-2022 11:35, No significant change was found Confirmed by Bradford Joseph ([id number]) on 07/23/2022 9:26:13 PM Referred By: REFERRED SELF Confirmed By:Bradford Joseph
== END 2022-07-21 18:29 | DRG 918 ==
LOC: ED 15:25 → SUATTDRO 07-20 03:08 → 2S 07-20 03:08

== ENCOUNTER 2022-07-21 18:17 | Inpatient (IN) ==
[2022-07-21] MEDS ORDERED: BISMUTH SUBSALICYLATE LIQD 236 ML PO PRN (18:19)
[2022-07-21] MEDS ORDERED: SODIUM CHLORIDE 0.65% NA SOLN 45 ML (OCEAN) PRN (18:19)
[2022-07-21] MEDS ORDERED: MAGNESIUM HYDROXIDE SUSP 30 ML UDC PO PRN (18:19)
[2022-07-22] MEDS ORDERED: busPIRone 5 MG TAB PO PRN (11:40)
[2022-07-22] MEDS: PANTOprazole 40 MG TAB PO SCH ×2 (12:48→20:23)
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
[2022-07-22] MEDS ORDERED: busPIRone 5 MG TAB PO SCH (17:45)
[2022-07-22] MEDS: lamoTRIgine 25 MG TAB PO SCH (20:44)
[2022-07-23] MEDS ORDERED: LORazepam 1 MG TAB PO STA (04:37)
[2022-07-23] MEDS: PANTOprazole 40 MG TAB PO SCH ×2 (08:52→20:33)
[2022-07-23] MEDS ORDERED: ONDANSETRON 8MG OD TAB PO STA (09:32)
[2022-07-23] MEDS ORDERED: ONDANSETRON 8MG OD TAB PO PRN (09:32)
[2022-07-23 11:10] LABS: Albumin Level 4.3 gm/dl (3.4-5.0); BUN Creatinine Ratio 18.3 (10-20); Calcium 9.5 mg/dl (8.5-10.1); Creatinine Clr Calc Pharmacy 100.3 ml/min; Est GFR (African American) 118.6 ml/min; Est GFR (Non-African American) 102.3 ml/min; Magnesium 2.1 mg/dl (1.7-2.4); Phosphorus 3.4 mg/dl (2.5-4.9); Potassium 4.1 mmol/L (3.5-5.1)
--- NOTE | 2022-07-23 12:54 | Psychiatric Progress Note ---
Date of Service July 23, 2022 Impression / Recommendations Impression 21 yo female with a history of mood dysregulation, complex trauma hx, worsening depression on transition to living independently as an adult, limited coping skills tested by ACL repair. MNPR due to social skills, knee recovery, limited distress tolerance 07/23/22: patient with possible activation from Buspar, ongoing QTc prolongation (1) Post traumatic stress disorder (PTSD): (2) Depression with suicidal ideation: (3) Intentional overdose: (4) QT prolongation: (5) S/P ACL reconstruction: Plan 07/23/22: d/c Buspar as may be having residual serotonergic sensitivity, daily EKG per hospitalist recommendation, repeat labs unremarkable, vitals stable. Zofran prn. Hold Abilify maintenna due to day given QTc. 07/22/22: The patient was [facility] unit) on q15 min checks (behavioral with suicide precautions) for safety. The patient will participate in group, recreational, and milieu therapies and will be offered additional individual and family sessions as clinically appropriate. Restarted Buspar on medical floor, repeat EKG in am to determine appropriateness of Abilify maintenna that is due. Hold Zyprexa. She is aware that would not recommend resume Vistaril or Lexapro. Will offer Buspar 5 mg TID prn as well as frequently requests prn and want to avoid benzos. Restart lamictal as plan of outpatient provider and has never titrated. PT consult as still receiving outpatient PT. Explore possible state hospital referral given need for longer term hospitalization. Inventory Assets Strengths: accepting of services, cooperative with unit routines Needs: improve coping skills, ongoing CM involvement in placement options Suicide Risk Level Suicide Risk Level: High-Moderate (q15 min suicide checks) Risk Factors Assessment : Yes Do You Have Access To A Gun?: No Health Problems: Yes Mental Health Diagnoses: Yes Substance Use Disorders: No Previous Psychiatric Hospitalization: Yes Protective Factors Assessment Stable Relationships: Yes Interval History Identifying Information BAUTISTA ALLRED is a 21-year-old F who currently lives in [place], has a history of several inpatient stays on 3 S (most recently 07/24), and was admitted on 07/21/22 18:29 on a 201 voluntary commitment s/p medical admission for suicide attempt by OD. Chief Complaint "I threw up, my chest still flutters" Review of Systems Sleep Information Total Hours of Sleep: 8 Sleep Comments: felt sick throughout night, up multiple times Meal Information Percent Meal Consumed - Breakfast: 100 Percent Meal Consumed - Lunch: 100 Percent Meal Consumed - Dinner: 100 Subjective Subjective Patient was seen & assessed and interval progress reviewed with treatment team. CM to reach out to [facility] re: referrals options for longer term care. Patient had unwitnessed emesis this am after breakfast. was up early complaining of same feeling in chest. Reports little benefit from Ativan. Physical Exam Psychiatric Orientation: alert and oriented x 3 Apperance: appropriately dressed and appropriately groomed Eye Contact: good eye contact Motor Behavior: no abnormal motor movements Speech: normal rate/rhythm/volume of speech Affect: + depressed affect Mood: + depressed mood Thought Process: goal directed thought process Thought Content: reality based without delusions Suicidal Thoughts: denies suicidal plan and denies suicidal intent; + reports suicidal thoughts Homicidal Thoughts: denies homicidal thoughts Hallucinations: no auditory hallucinations and no visual hallucinations Cognition: attention grossly intact and language grossly intact Estimated Intelligence: consistent with education level Insight: + limited insight Judgement: + limited judgement Vital Signs (Past 24 Hours) Last Vital Signs Temp 36.7 C 07/23/22 05:13 Pulse 102 H 07/23/22 04:24 Resp 20 07/23/22 04:24 BP 111/73 07/23/22 04:24 Pulse Ox 99 07/21/22 20:25 O2 Del Method 07/21/22 20:25 Results & Data (U) Laboratory Results Laboratory Results - last 24 hr 07/23/22 10:13 Sodium 137 Potassium 4.1 Chloride 104 Carbon Dioxide 24 Anion Gap 9 BUN 15 Creatinine 0.82 Est Cr Clr Drug Dosing 100.3 Est GFR ( Amer) 118.6 Est GFR (Non-Af Amer) 102.3 BUN/Creatinine Ratio 18.3 Glucose 125 H Calcium 9.5 Phosphorus 3.4 Magnesium 2.1 Albumin 4.3 Amylase 28 Diagnostic Findings repeat EKG QTc 505 Current Inpatient Medications Current Inpatient Medications: Current Inpatient Medications Acetaminophen (Acetaminophen 325 Mg Tab) 650 mg PO Q4H PRN PRN Reason: Headache or Minor Fever Stop: 08/20/22 18:18 Al Hydrox/Mg Hydrox/Simethicone (Aluminum/Magnesium Susp 30 Ml Udc) 30 ml PO Q4H PRN PRN Reason: GI Upset Stop: 08/20/22 18:18 Bismuth Subsalicylate (Bismuth Subsalicylate Liqd 236 Ml) 15 ml PO PRN PRN PRN Reason: Loose Stool Stop: 08/20/22 18:18 Lamotrigine (Lamotrigine 25 Mg Tab) 25 mg PO HS IFEOMA Stop: 08/21/22 21:59 Last Admin: 07/22/22 20:44 Dose: 25 mg Magnesium Hydroxide (Magnesium Hydroxide Susp 30 Ml Udc) 30 ml PO DAILY PRN PRN Reason: Constipation Stop: 08/20/22 18:18 Ondansetron HCl (Ondansetron 4 Mg Od Tab) 4 mg PO Q6H PRN PRN Reason: Nausea Stop: 08/22/22 09:31 Pantoprazole Sodium (Pantoprazole 40 Mg Tab) 40 mg PO BID IFEOMA Stop: 08/21/22 11:44 Last Admin: 07/23/22 08:52 Dose: 40 mg Sodium Chloride (Sodium Chloride 0.65% Na Soln 45 Ml ([place])) 1 - 2 sprays NA PRN PRN PRN Reason: Nasal Dryness/Congestion Stop: 08/20/22 18:18 Mental Health & Subst Abuse Tx Therapist Name of Therapist: Hubert Martinez Sheriff'S Sergeant Name of Sheriff'S Sergeant: DANIE Watkins Post Discharge Appointments Primary Care Physician Name Of Family Doctor: Hubert Mcpherson
[2022-07-23] MEDS: ACETAMINOPHEN 325 MG TAB PO PRN (17:53)
[2022-07-23] MEDS: lamoTRIgine 25 MG TAB PO SCH (20:32)
[2022-07-24] MEDS: ONDANSETRON 4 MG OD TAB PO PRN (05:26)
[2022-07-24] MEDS: PANTOprazole 40 MG TAB PO SCH ×2 (08:22→20:27)
--- NOTE | 2022-07-24 10:54 | Psychiatric Progress Note ---
Date of Service July 24, 2022 Impression / Recommendations Impression 21 yo female with a history of mood dysregulation, complex trauma hx, worsening depression on transition to living independently as an adult, limited coping skills tested by ACL repair. MNPR due to social skills, knee recovery, limited distress tolerance 07/24/22: patient remains somatic, QTc improved today (1) Post traumatic stress disorder (PTSD): (2) Depression with suicidal ideation: (3) Intentional overdose: (4) QT prolongation: (5) S/P ACL reconstruction: Plan 07/24/22: risks/benefits/alternatives reviewed re: Klonopin trial given random breakthrough anxiety. Discussed resuming Abilify oral dosing so can adjust/monitor QTc. Daily EKG ordered. patient agreeable and will start Abilify 5 mg daily today and Klonopin 0.25 mg po BID. She is ambulating well without her brace. consult PT for final exercises. 07/23/22: d/c Buspar as may be having residual serotonergic sensitivity, daily EKG per hospitalist recommendation, repeat labs unremarkable, vitals stable. Zofran prn. Hold Abilify maintenna due to day given QTc. 07/22/22: The patient was [facility] ([facility] inpatient mental health unit) on q15 min checks (behavioral with suicide precautions) for safety. The patient will participate in group, recreational, and milieu therapies and will be offered additional individual and family sessions as clinically appropriate. Restarted Buspar on medical floor, repeat EKG in am to determine appropriateness of Abilify maintenna that is due. Hold Zyprexa. She is aware that would not recommend resume Vistaril or Lexapro. Will offer Buspar 5 mg TID prn as well as frequently requests prn and want to avoid benzos. Restart lamictal as plan of outpatient provider and has never titrated. PT consult as still receiving outpatient PT. Explore possible state hospital referral given need for longer term hospitalization. Inventory Assets Strengths: accepting of services, cooperative with unit routines Needs: improve coping skills, ongoing CM involvement in placement options Suicide Risk Level Suicide Risk Level: High-Moderate (q15 min suicide checks) Risk Factors Assessment : Yes Do You Have Access To A Gun?: No Health Problems: Yes Mental Health Diagnoses: Yes Substance Use Disorders: No Previous Psychiatric Hospitalization: Yes Protective Factors Assessment Stable Relationships: Yes Interval History Identifying Information BAUTISTA ALLRED is a 21-year-old F who currently lives in [place], has a history of several inpatient stays on 3 S (most recently 07/24), and was admitted on 07/21/22 18:29 on a 201 voluntary commitment s/p medical admission for suicide attempt by OD. Chief Complaint "I had that flutter again but it wasn't anxiety." Review of Systems Sleep Information Total Hours of Sleep: 7.5 Meal Information Percent Meal Consumed - Breakfast: 100 Percent Meal Consumed - Lunch: 100 Percent Meal Consumed - Dinner: 100 Subjective Subjective Patient was seen & assessed and interval progress reviewed with nursing and social work. Patient was bright and interactive this am but rated mood as 1 and guilty last pm. Denies N. Seemed reassured after review of repeat EKG. Physical Exam Psychiatric Orientation: alert and oriented x 3 Apperance: appropriately dressed and appropriately groomed Eye Contact: good eye contact Motor Behavior: no abnormal motor movements Speech: normal rate/rhythm/volume of speech Affect: + depressed affect Mood: + depressed mood Thought Process: goal directed thought process Thought Content: reality based without delusions Suicidal Thoughts: denies suicidal plan and denies suicidal intent; + reports suicidal thoughts Homicidal Thoughts: denies homicidal thoughts Hallucinations: no auditory hallucinations and no visual hallucinations Cognition: attention grossly intact and language grossly intact Estimated Intelligence: consistent with education level Insight: + limited insight Judgement: + limited judgement Vital Signs (Past 24 Hours) Last Vital Signs Temp 36.4 C L 07/24/22 06:26 Pulse 89 07/24/22 06:27 Resp 18 07/24/22 06:26 BP 96/65 L 07/24/22 06:27 Pulse Ox 99 07/23/22 22:00 O2 Del Method 07/23/22 22:00 Results & Data ([facility]) Laboratory Results Laboratory Results - last 24 hr 07/23/22 10:13 Sodium 137 Potassium 4.1 Chloride 104 Carbon Dioxide 24 Anion Gap 9 BUN 15 Creatinine 0.82 Est Cr Clr Drug Dosing 100.3 Est GFR ( Amer) 118.6 Est GFR (Non-Af Amer) 102.3 BUN/Creatinine Ratio 18.3 Glucose 125 H Calcium 9.5 Phosphorus 3.4 Magnesium 2.1 Albumin 4.3 Amylase 28 Current Inpatient Medications Current Inpatient Medications: Current Inpatient Medications Acetaminophen (Acetaminophen 325 Mg Tab) 650 mg PO Q4H PRN PRN Reason: Headache or Minor Fever Stop: 08/20/22 18:18 Last Admin: 07/23/22 17:53 Dose: 650 mg Al Hydrox/Mg Hydrox/Simethicone (Aluminum/Magnesium Susp 30 Ml Udc) 30 ml PO Q4H PRN PRN Reason: GI Upset Stop: 08/20/22 18:18 Bismuth Subsalicylate (Bismuth Subsalicylate Liqd 236 Ml) 15 ml PO PRN PRN PRN Reason: Loose Stool Stop: 08/20/22 18:18 Lamotrigine (Lamotrigine 25 Mg Tab) 25 mg PO HS IFEOMA Stop: 08/21/22 21:59 Last Admin: 07/23/22 20:32 Dose: 25 mg Magnesium Hydroxide (Magnesium Hydroxide Susp 30 Ml Udc) 30 ml PO DAILY PRN PRN Reason: Constipation Stop: 08/20/22 18:18 Ondansetron HCl (Ondansetron 4 Mg Od Tab) 4 mg PO Q6H PRN PRN Reason: Nausea Stop: 08/22/22 09:31 Last Admin: 07/24/22 05:26 Dose: 4 mg Pantoprazole Sodium (Pantoprazole 40 Mg Tab) 40 mg PO BID IFEOMA Stop: 08/21/22 11:44 Last Admin: 07/24/22 08:22 Dose: 40 mg Sodium Chloride (Sodium Chloride 0.65% Na Soln 45 Ml ([place])) 1 - 2 sprays NA PRN PRN PRN Reason: Nasal Dryness/Congestion Stop: 08/20/22 18:18 Mental Health & Subst Abuse Tx Therapist Name of Therapist: Hubert Martinez Projection Welding Machine Operator Name of Projection Welding Machine Operator: DANIE Watkins Post Discharge Appointments Primary Care Physician Name Of Family Doctor: Hubert Mcpherson
[2022-07-24] MEDS: clonazePAM 0.25 MG TAB PO SCH ×2 (11:09→17:19)
[2022-07-24] MEDS: ARIPiprazole 5 MG TAB PO SCH (11:09)
[2022-07-24] MEDS: ACETAMINOPHEN 325 MG TAB PO PRN (19:43)
[2022-07-24] MEDS: lamoTRIgine 25 MG TAB PO SCH (20:27)
--- NOTE | 2022-07-24 23:45 | Electrocardiogram Report ---
Test Reason : Blood Pressure : / mmHG Vent. Rate : 083 BPM Atrial Rate : 083 BPM P-R Int : 108 ms QRS Dur : 080 ms QT Int : 430 ms P-R-T Axes : 049 057 047 degrees QTc Int : 505 ms Sinus rhythm Prolonged QT Abnormal ECG When compared with ECG of 21-JUL-2022 17:53, No significant change was found Confirmed by Bradford Joseph ([id number]) on 07/24/2022 11:44:51 PM Referred By: Kierra Call Confirmed By:Bradford Joseph
[2022-07-25] MEDS: ONDANSETRON 4 MG OD TAB PO PRN (06:28)
[2022-07-25] MEDS: ARIPiprazole 5 MG TAB PO SCH (08:30)
[2022-07-25] MEDS: clonazePAM 0.25 MG TAB PO SCH ×2 (08:30→20:47)
[2022-07-25] MEDS: PANTOprazole 40 MG TAB PO SCH ×2 (08:30→20:47)
[2022-07-25] MEDS: ALUMINUM/MAGNESIUM SUSP 30 ML UDC PO PRN (10:05)
--- NOTE | 2022-07-25 10:56 | Psychiatric Progress Note ---
Date of Service July 25, 2022 Impression / Recommendations Impression 21 yo female with a history of mood dysregulation, complex trauma hx, worsening depression on transition to living independently as an adult, limited coping skills tested by ACL repair. MNPR due to social skills, knee recovery, limited distress tolerance 07/25/22: ongoing SI, discussed longer term hospital referral (1) Post traumatic stress disorder (PTSD): (2) Depression with suicidal ideation: (3) Intentional overdose: (4) QT prolongation: (5) S/P ACL reconstruction: Plan 07/25/22: continue daily ekGs to titrate Abilify to 20 mg in intervals. Monitor sedation on Klonopin, gait is steady, will move 2nd dose to hs. CXR for TB clearance for anticipated state hospital referral. 07/24/22: risks/benefits/alternatives reviewed re: Klonopin trial given random breakthrough anxiety. Discussed resuming Abilify oral dosing so can adjust/monitor QTc. Daily EKG ordered. patient agreeable and will start Abilify 5 mg daily today and Klonopin 0.25 mg po BID. She is ambulating well without her brace. consult PT for final exercises. 07/23/22: d/c Buspar as may be having residual serotonergic sensitivity, daily EKG per hospitalist recommendation, repeat labs unremarkable, vitals stable. Zofran prn. Hold Abilify maintenna due to day given QTc. 07/22/22: The patient was admitted to the [facility] ([facility] mental health unit) on q15 min checks (behavioral with suicide precautions) for safety. The patient will participate in group, recreational, and milieu therapies and will be offered additional individual and family sessions as clinically appropriate. Restarted Buspar on medical floor, repeat EKG in am to determine appropriateness of Abilify maintenna that is due. Hold Zyprexa. She is aware that would not recommend resume Vistaril or Lexapro. Will offer Buspar 5 mg TID prn as well as frequently requests prn and want to avoid benzos. Restart lamictal as plan of outpatient provider and has never titrated. PT consult as still receiving outpatient PT. Explore possible state hospital referral given need for longer term hospitalization. Inventory Assets Strengths: accepting of services, cooperative with unit routines Needs: improve coping skills, ongoing CM involvement in placement options Suicide Risk Level Suicide Risk Level: High-Moderate (q15 min suicide checks) Risk Factors Assessment : Yes Do You Have Access To A Gun?: No Health Problems: Yes Mental Health Diagnoses: Yes Substance Use Disorders: No Previous Psychiatric Hospitalization: Yes Protective Factors Assessment Stable Relationships: Yes Interval History Identifying Information BAUTISTA ALLRED is a 21-year-old F who currently lives in [place], has a history of several inpatient stays on 3 S (most recently 07/24), and was admitted on 07/21/22 18:29 on a 201 voluntary commitment s/p medical admission for suicide attempt by OD. Chief Complaint "I don't want to be here". Review of Systems Sleep Information Total Hours of Sleep: 8.25 Meal Information Percent Meal Consumed - Breakfast: 100 Percent Meal Consumed - Lunch: 100 Percent Meal Consumed - Dinner: 100 Subjective Subjective Patient was seen & assessed and interval progress reviewed with treatment team. She can appear bright and interactive in groups, didn't have any more chest discomfort since starting Klonopin but did have some mild sedation (napped in evening and didn't attend group). appeared bright then stating she felt angry that symptoms taking so long to clear. Physical Exam Psychiatric Orientation: alert and oriented x 3 Apperance: appropriately dressed and appropriately groomed Eye Contact: good eye contact Motor Behavior: no abnormal motor movements Speech: normal rate/rhythm/volume of speech Affect: + depressed affect Mood: + depressed mood Thought Process: goal directed thought process Thought Content: reality based without delusions Suicidal Thoughts: denies suicidal plan and denies suicidal intent; + reports suicidal thoughts Homicidal Thoughts: denies homicidal thoughts Hallucinations: no auditory hallucinations and no visual hallucinations Cognition: attention grossly intact and language grossly intact Estimated Intelligence: consistent with education level Insight: + limited insight Judgement: + limited judgement Vital Signs (Past 24 Hours) Last Vital Signs Temp 36.8 C 07/25/22 06:31 Pulse 104 H 07/25/22 06:31 Resp 18 07/25/22 06:31 BP 110/74 07/25/22 06:31 Pulse Ox 99 07/23/22 22:00 O2 Del Method 07/23/22 22:00 Results & Data ([facility]) Current Inpatient Medications Current Inpatient Medications: Current Inpatient Medications Acetaminophen (Acetaminophen 325 Mg Tab) 650 mg PO Q4H PRN PRN Reason: Headache or Minor Fever Stop: 08/20/22 18:18 Last Admin: 07/24/22 19:43 Dose: 650 mg Al Hydrox/Mg Hydrox/Simethicone (Aluminum/Magnesium Susp 30 Ml Udc) 30 ml PO Q4H PRN PRN Reason: GI Upset Stop: 08/20/22 18:18 Last Admin: 07/25/22 10:05 Dose: 30 ml Aripiprazole (Aripiprazole 5 Mg Tab) 5 mg PO QAM [facility] Stop: 08/23/22 10:59 Last Admin: 07/25/22 08:30 Dose: 5 mg Bismuth Subsalicylate (Bismuth Subsalicylate Liqd 236 Ml) 15 ml PO PRN PRN PRN Reason: Loose Stool Stop: 08/20/22 18:18 Clonazepam (Clonazepam 0.25 Mg Tab) 0.25 mg PO BIDM [facility] Stop: 08/23/22 10:47 Last Admin: 07/25/22 08:30 Dose: 0.25 mg Lamotrigine (Lamotrigine 25 Mg Tab) 25 mg PO HS [facility] Stop: 08/21/22 21:59 Last Admin: 07/24/22 20:27 Dose: 25 mg Magnesium Hydroxide (Magnesium Hydroxide Susp 30 Ml Udc) 30 ml PO DAILY PRN PRN Reason: Constipation Stop: 08/20/22 18:18 Ondansetron HCl (Ondansetron 4 Mg Od Tab) 4 mg PO Q6H PRN PRN Reason: Nausea Stop: 08/22/22 09:31 Last Admin: 07/25/22 06:28 Dose: 4 mg Pantoprazole Sodium (Pantoprazole 40 Mg Tab) 40 mg PO BID [facility] Stop: 08/21/22 11:44 Last Admin: 07/25/22 08:30 Dose: 40 mg Sodium Chloride (Sodium Chloride 0.65% Na Soln 45 Ml ([place])) 1 - 2 sprays NA PRN PRN PRN Reason: Nasal Dryness/Congestion Stop: 08/20/22 18:18 Mental Health & Subst Abuse Tx Therapist Name of Therapist: Hubert Martinez Preparatory Technician Name of Preparatory Technician: DANIE Watkins Post Discharge Appointments Primary Care Physician Name Of Family Doctor: Hubert Mcpherson
--- NOTE | 2022-07-25 12:18 | XRay Report ---
XR chest 1V portable HISTORY: screening for TB COMPARISON: Chest 06/02/2022. FINDINGS: The lungs are clear. Cardiac silhouette is normal in size. No pleural effusions. No pneumot horax. IMPRESSION: No acute process. ACT 112: Negative or not required by law. Electronically signed by: Kamron Clayton M.D. 07/25/2022 12:17 PM
[2022-07-25] MEDS: lamoTRIgine 25 MG TAB PO SCH (20:47)
--- NOTE | 2022-07-26 06:16 | Electrocardiogram Report ---
Test Reason : Blood Pressure : / mmHG Vent. Rate : 072 BPM Atrial Rate : 072 BPM P-R Int : 110 ms QRS Dur : 082 ms QT Int : 418 ms P-R-T Axes : 062 061 045 degrees QTc Int : 457 ms Sinus rhythm with sinus arrhythmia with short [place] Otherwise normal ECG When compared with ECG of 23-JUL-2022 04:44, No significant change was found Confirmed by Bradford Joseph ([id number]) on 07/26/2022 6:16:01 AM Referred By: Kierra Call Confirmed By:Bradford Joseph
--- NOTE | 2022-07-26 07:21 | Electrocardiogram Report ---
Test Reason : Blood Pressure : / mmHG Vent. Rate : 082 BPM Atrial Rate : 082 BPM P-R Int : 114 ms QRS Dur : 088 ms QT Int : 406 ms P-R-T Axes : 044 048 039 degrees QTc Int : 474 ms Normal sinus rhythm When compared with ECG of 24-JUL-2022 10:09, No significant change was found Confirmed by Bradford Joseph ([id number]) on 07/26/2022 7:21:07 AM Referred By: Kierra Call Confirmed By:Bradford Joseph
[2022-07-26] MEDS: ARIPiprazole 5 MG TAB PO SCH (08:58)
[2022-07-26] MEDS: PANTOprazole 40 MG TAB PO SCH ×2 (08:58→21:23)
[2022-07-26] MEDS: clonazePAM 0.25 MG TAB PO SCH ×2 (08:59→21:24)
--- NOTE | 2022-07-26 12:23 | Psychiatric Progress Note ---
Date of Service July 26, 2022 Impression / Recommendations Impression 21 yo female with a history of mood dysregulation, complex trauma hx, worsening depression on transition to living independently as an adult, limited coping skills tested by ACL repair. MNPR due to social skills, knee recovery, limited distress tolerance 07/26/22: brighter today, sleep improved (1) Post traumatic stress disorder (PTSD): (2) Depression with suicidal ideation: (3) Intentional overdose: (4) QT prolongation: (5) S/P ACL reconstruction: Plan 07/26/22: titrate Abilify to 10 mg starting tomorrow 07/25/22: continue daily ekGs to titrate Abilify to 20 mg in intervals. Monitor sedation on Klonopin, gait is steady, will move 2nd dose to hs. CXR for TB clearance for anticipated state hospital referral. 07/24/22: risks/benefits/alternatives reviewed re: Klonopin trial given random breakthrough anxiety. Discussed resuming Abilify oral dosing so can adjust/monitor QTc. Daily EKG ordered. patient agreeable and will start Abilify 5 mg daily today and Klonopin 0.25 mg po BID. She is ambulating well without her brace. consult PT for final exercises. 07/23/22: d/c Buspar as may be having residual serotonergic sensitivity, daily EKG per hospitalist recommendation, repeat labs unremarkable, vitals stable. Zofran prn. Hold Abilify maintenna due to day given QTc. 07/22/22: The patient was admitted to the [facility] ([facility] inpatient mental health unit) on q15 min checks (behavioral with suicide precautions) for safety. The patient will participate in group, recreational, and milieu therapies and will be offered additional individual and family sessions as clinically appropriate. Restarted Buspar on medical floor, repeat EKG in am to determine appropriateness of Abilify maintenna that is due. Hold Zyprexa. She is aware that would not recommend resume Vistaril or Lexapro. Will offer Buspar 5 mg TID prn as well as frequently requests prn and want to avoid benzos. Restart lamictal as plan of outpatient provider and has never titrated. PT consult as still receiving outpatient PT. Explore possible state hospital referral given need for longer term hospitalization. Inventory Assets Strengths: accepting of services, cooperative with unit routines Needs: improve coping skills, ongoing CM involvement in placement options Suicide Risk Level Suicide Risk Level: Moderate (q15 min suicide checks) Risk Factors Assessment : Yes Do You Have Access To A Gun?: No Health Problems: Yes Mental Health Diagnoses: Yes Substance Use Disorders: No Previous Psychiatric Hospitalization: Yes Protective Factors Assessment Stable Relationships: Yes Interval History Identifying Information BAUTISTA ALLRED is a 21-year-old F who currently lives in [place], has a history of several inpatient stays on 3 S (most recently 07/24), and was admitted on 07/21/22 18:29 on a 201 voluntary commitment s/p medical admission for suicide attempt by OD. Chief Complaint "I'm physically feeling better today, can I get my shot?" Review of Systems Sleep Information Total Hours of Sleep: 10.5 Meal Information Percent Meal Consumed - Breakfast: 100 Percent Meal Consumed - Lunch: 100 Percent Meal Consumed - Dinner: 100 Subjective Subjective Patient was seen & assessed and interval progress reviewed with nursing and social work. Patient slept very well overnight. Feels that klonopin has been helpful for anxiety but notes minimal daytime sedation. She was cooperative with repeat EKG/CXR. Physical Exam Psychiatric Orientation: alert and oriented x 3 Apperance: appropriately dressed and appropriately groomed Eye Contact: good eye contact Motor Behavior: no abnormal motor movements Speech: normal rate/rhythm/volume of speech Affect: + depressed affect Mood: + depressed mood Thought Process: goal directed thought process Thought Content: reality based without delusions Suicidal Thoughts: denies suicidal plan and denies suicidal intent; + reports suicidal thoughts (intermittent, less) Homicidal Thoughts: denies homicidal thoughts Hallucinations: no auditory hallucinations and no visual hallucinations Cognition: attention grossly intact and language grossly intact Estimated Intelligence: consistent with education level Insight: + limited insight Judgement: + limited judgement Vital Signs (Past 24 Hours) Last Vital Signs Temp 37.7 C H 07/26/22 06:47 Pulse 99 H 07/26/22 06:47 Resp 18 07/26/22 06:47 BP 109/72 07/26/22 06:47 Pulse Ox 99 07/23/22 22:00 O2 Del Method 07/23/22 22:00 Results & Data ([facility]) Current Inpatient Medications Current Inpatient Medications: Current Inpatient Medications Acetaminophen (Acetaminophen 325 Mg Tab) 650 mg PO Q4H PRN PRN Reason: Headache or Minor Fever Stop: 08/20/22 18:18 Last Admin: 07/24/22 19:43 Dose: 650 mg Al Hydrox/Mg Hydrox/Simethicone (Aluminum/Magnesium Susp 30 Ml Udc) 30 ml PO Q4H PRN PRN Reason: GI Upset Stop: 08/20/22 18:18 Last Admin: 07/25/22 10:05 Dose: 30 ml Aripiprazole (Aripiprazole 5 Mg Tab) 5 mg PO QAM [facility] Stop: 08/23/22 10:59 Last Admin: 07/26/22 08:58 Dose: 5 mg Bismuth Subsalicylate (Bismuth Subsalicylate Liqd 236 Ml) 15 ml PO PRN PRN PRN Reason: Loose Stool Stop: 08/20/22 18:18 Clonazepam (Clonazepam 0.25 Mg Tab) 0.25 mg PO BID [facility] Stop: 08/24/22 20:59 Last Admin: 07/26/22 08:59 Dose: 0.25 mg Lamotrigine (Lamotrigine 25 Mg Tab) 25 mg PO HS [facility] Stop: 08/21/22 21:59 Last Admin: 07/25/22 20:47 Dose: 25 mg Magnesium Hydroxide (Magnesium Hydroxide Susp 30 Ml Udc) 30 ml PO DAILY PRN PRN Reason: Constipation Stop: 08/20/22 18:18 Ondansetron HCl (Ondansetron 4 Mg Od Tab) 4 mg PO Q6H PRN PRN Reason: Nausea Stop: 08/22/22 09:31 Last Admin: 07/25/22 06:28 Dose: 4 mg Pantoprazole Sodium (Pantoprazole 40 Mg Tab) 40 mg PO BID [facility] Stop: 08/21/22 11:44 Last Admin: 07/26/22 08:58 Dose: 40 mg Sodium Chloride (Sodium Chloride 0.65% Na Soln 45 Ml ([place])) 1 - 2 sprays NA PRN PRN PRN Reason: Nasal Dryness/Congestion Stop: 08/20/22 18:18 Mental Health & Subst Abuse Tx Therapist Name of Therapist: Hubert Martinez Social Services Assistant Name of Social Services Assistant: DANIE Watkins Post Discharge Appointments Primary Care Physician Name Of Family Doctor: Hubert Mcpherson
[2022-07-26] MEDS: lamoTRIgine 25 MG TAB PO SCH (21:24)
[2022-07-27] MEDS: ARIPiprazole 10 MG TAB PO SCH (08:10)
[2022-07-27] MEDS: PANTOprazole 40 MG TAB PO SCH ×2 (08:10→21:06)
[2022-07-27] MEDS: clonazePAM 0.25 MG TAB PO SCH ×2 (08:11→21:06)
--- NOTE | 2022-07-27 10:31 | Electrocardiogram Report ---
Test Reason : Blood Pressure : / mmHG Vent. Rate : 075 BPM Atrial Rate : 075 BPM P-R Int : 118 ms QRS Dur : 084 ms QT Int : 408 ms P-R-T Axes : 049 054 052 degrees QTc Int : 455 ms Normal sinus rhythm Normal ECG When compared with ECG of 25-JUL-2022 14:09, No significant change was found Confirmed by Dru Pryor ([id number]) on 07/27/2022 10:30:31 AM Referred By: Kierra Call Confirmed By:Dru Pryor
--- NOTE | 2022-07-27 13:03 | Psychiatric Progress Note ---
Date of Service July 27, 2022 Impression / Recommendations Impression 21 yo female with a history of mood dysregulation, complex trauma hx, worsening depression on transition to living independently as an adult, limited coping skills tested by ACL repair. Diagnostically consistent with recurrent MDD in context of limited coping skills and social isolation. MNPR due to social skills, knee recovery, limited distress tolerance 07/27/22: very depressed today, possibly due to the holiday and few supports. Still feels safe in the hospital but more behaviorally agitated today, threw herself back on the bed and almost hit her head on side of the bed due to distress from depression. QTc wnl today on repeat EKG. Will continue with abilify 10mg qd for now. Reviewed interim progress per Dr. Call's notes. (1) Depression with suicidal ideation: (2) Post traumatic stress disorder (PTSD): (3) Intentional overdose: (4) QT prolongation: (5) S/P ACL reconstruction: (6) MDD (major depressive disorder), recurrent episode, severe: Plan 07/27/22: Continue with current medications and tx plan. 07/26/22: titrate Abilify to 10 mg starting tomorrow 07/25/22: continue daily ekGs to titrate Abilify to 20 mg in intervals. Monitor sedation on Klonopin, gait is steady, will move 2nd dose to hs. CXR for TB clearance for anticipated [facility] referral. 07/24/22: risks/benefits/alternatives reviewed re: Klonopin trial given random breakthrough anxiety. Discussed resuming Abilify oral dosing so can adjust/monitor QTc. Daily EKG ordered. patient agreeable and will start Abilify 5 mg daily today and Klonopin 0.25 mg po BID. She is ambulating well without her brace. consult PT for final exercises. 07/23/22: d/c Buspar as may be having residual serotonergic sensitivity, daily EKG per hospitalist recommendation, repeat labs unremarkable, vitals stable. Zofran prn. Hold Abilify maintenna due to day given QTc. 07/22/22: The patient was [facility] the [facility] on q15 min checks (behavioral with suicide precautions) for safety. The patient will participate in group, recreational, and milieu therapies and will be offered additional individual and family sessions as clinically appropriate. Restarted Buspar on medical floor, repeat EKG in am to determine appropriateness of Abilify maintenna that is due. Hold Zyprexa. She is aware that would not recommend resume Vistaril or Lexapro. Will offer Buspar 5 mg TID prn as well as frequently requests prn and want to avoid benzos. Restart lamictal as plan of outpatient provider and has never titrated. PT consult as still receiving outpatient PT. Explore possible state hospital referral given need for longer term hospitalization. Inventory Assets Strengths: accepting of services, cooperative with unit routines Needs: improve coping skills, ongoing CM involvement in placement options Suicide Risk Level Suicide Risk Level: High-Moderate (q15 min suicide checks) (given severe depression with attempt prior to admission and regretful that she surivived with ongoing SI but feels safe in the hospital, denies any plans for in the hospital and agrees to alert nursing if she feels unable to remain safe, SI worsens or plan or inten or if she needs additional support) Risk Factors Assessment : Yes Do You Have Access To A Gun?: No Health Problems: Yes Mental Health Diagnoses: Yes Substance Use Disorders: No Previous Psychiatric Hospitalization: Yes Protective Factors Assessment Stable Relationships: Yes Interval History Identifying Information BAUTISTA ALLRED is a 21-year-old F who currently lives in [place], has a history of several inpatient stays on 3 S (most recently 07/24), and was admitted on 07/21/22 18:29 on a 201 voluntary commitment s/p medical admission for suicide attempt by OD. Chief Complaint "If I could overdose again I would". Review of Systems Sleep Information Total Hours of Sleep: 6 Sleep Comments: Awoke in AM with nausea and an emesis Meal Information Percent Meal Consumed - Breakfast: 100 Percent Meal Consumed - Lunch: 100 Percent Meal Consumed - Dinner: 100 Subjective Subjective Patient was seen & assessed and interval progress reviewed with treatment team nursing and social work. Was bright this morning and laughing with peers but by mid-afternoon on meeting with her she reported ongoing intense depression and SI with regret that her attempt was not successful. Remains unable to speak to what changed between recent discharge and re-admission except that she was lonely and her boyfriend did not come into town as planned to visit her and they are now broken up. Tolerating higher dose of abilify. No palpitations or chest pain. Physical Exam Psychiatric Orientation: alert and oriented x 3 Apperance: appropriately dressed and appropriately groomed Eye Contact: good eye contact Motor Behavior: no abnormal motor movements (purposefully threw herself back on bed near side panel on the bed) Speech: normal rate/rhythm/volume of speech Affect: + depressed affect, + tearful affect and + irritable affect Mood: + depressed mood Thought Process: goal directed thought process Thought Content: reality based without delusions Suicidal Thoughts: denies suicidal plan (none for the hospital, regrets that alive from attempt prior to admission ) and denies suicidal intent; + reports suicidal thoughts (intermittent) Homicidal Thoughts: denies homicidal thoughts Hallucinations: no auditory hallucinations and no visual hallucinations Cognition: attention grossly intact and language grossly intact Estimated Intelligence: consistent with education level Insight: + limited insight Judgement: + limited judgement Vital Signs (Past 24 Hours) Last Vital Signs Temp 37.4 C 07/27/22 06:00 Pulse 96 H 07/27/22 06:47 Resp 16 07/27/22 06:00 BP 129/87 07/27/22 06:47 Pulse Ox 98 07/27/22 06:00 O2 Del Method 07/27/22 06:00 Results & Data ([facility]) Current Inpatient Medications Current Inpatient Medications: Current Inpatient Medications Acetaminophen (Acetaminophen 325 Mg Tab) 650 mg PO Q4H PRN PRN Reason: Headache or Minor Fever Stop: 08/20/22 18:18 Last Admin: 07/24/22 19:43 Dose: 650 mg Al Hydrox/Mg Hydrox/Simethicone (Aluminum/Magnesium Susp 30 Ml Udc) 30 ml PO Q4H PRN PRN Reason: GI Upset Stop: 08/20/22 18:18 Last Admin: 07/25/22 10:05 Dose: 30 ml Aripiprazole (Aripiprazole 10 Mg Tab) 10 mg PO QAM [facility] Stop: 08/26/22 08:59 Last Admin: 07/27/22 08:10 Dose: 10 mg Bismuth Subsalicylate (Bismuth Subsalicylate Liqd 236 Ml) 15 ml PO PRN PRN PRN Reason: Loose Stool Stop: 08/20/22 18:18 Clonazepam (Clonazepam 0.25 Mg Tab) 0.25 mg PO BID [facility] Stop: 08/24/22 20:59 Last Admin: 07/27/22 08:11 Dose: 0.25 mg Lamotrigine (Lamotrigine 25 Mg Tab) 25 mg PO HS [facility] Stop: 08/21/22 21:59 Last Admin: 07/26/22 21:24 Dose: 25 mg Magnesium Hydroxide (Magnesium Hydroxide Susp 30 Ml Udc) 30 ml PO DAILY PRN PRN Reason: Constipation Stop: 08/20/22 18:18 Ondansetron HCl (Ondansetron 4 Mg Od Tab) 4 mg PO Q6H PRN PRN Reason: Nausea Stop: 08/22/22 09:31 Last Admin: 07/25/22 06:28 Dose: 4 mg Pantoprazole Sodium (Pantoprazole 40 Mg Tab) 40 mg PO BID [facility] Stop: 08/21/22 11:44 Last Admin: 07/27/22 08:10 Dose: 40 mg Sodium Chloride (Sodium Chloride 0.65% Na Soln 45 Ml ([place])) 1 - 2 sprays NA PRN PRN PRN Reason: Nasal Dryness/Congestion Stop: 08/20/22 18:18 Mental Health & Subst Abuse Tx Therapist Name of Therapist: Hubert Martienz Steam Boiler Fireman Name of Steam Boiler Fireman: DANIE Watkins Post Discharge Appointments Primary Care Physician Name Of Family Doctor: Hubert Mcpherson
[2022-07-27] MEDS: ALUMINUM/MAGNESIUM SUSP 30 ML UDC PO PRN (14:20)
--- NOTE | 2022-07-27 14:55 | Electrocardiogram Report ---
Test Reason : Blood Pressure : / mmHG Vent. Rate : 084 BPM Atrial Rate : 084 BPM P-R Int : 118 ms QRS Dur : 084 ms QT Int : 400 ms P-R-T Axes : 047 051 046 degrees QTc Int : 472 ms Normal sinus rhythm Normal ECG When compared with ECG of 26-JUL-2022 13:43, No significant change was found Confirmed by Dru Pryor ([id number]) on 07/27/2022 2:55:03 PM Referred By: Kierra Call Confirmed By:Dru Pryor
[2022-07-27] MEDS: lamoTRIgine 25 MG TAB PO SCH (21:06)
[2022-07-28] MEDS: ARIPiprazole 10 MG TAB PO SCH (09:15)
[2022-07-28] MEDS: PANTOprazole 40 MG TAB PO SCH ×2 (09:15→20:26)
[2022-07-28] MEDS: clonazePAM 0.25 MG TAB PO SCH ×2 (09:15→20:29)
--- NOTE | 2022-07-28 12:08 | Psychiatric Progress Note ---
Date of Service July 28, 2022 Impression / Recommendations Impression 21 yo female with a history of mood dysregulation, complex trauma hx, worsening depression on transition to living independently as an adult, limited coping skills tested by ACL repair. Diagnostically consistent with recurrent MDD in context of limited coping skills and social isolation and increasingly presents with likely cluster B traits/BPD given chronicity of her SI and very limited coping skills for emotional distress/self-harm urges. MNPR due to social skills, knee recovery, limited distress tolerance 07/28/22: remains very depressed, frustrated that there are no age matched peers on the unit. Distress increases when attention goes to other peers. Increase abilify tomorrow as tolerating well. Buspar prn added for anxiety per her request. (1) Depression with suicidal ideation: (2) Post traumatic stress disorder (PTSD): (3) Intentional overdose: (4) QT prolongation: (5) S/P ACL reconstruction: (6) MDD (major depressive disorder), recurrent episode, severe: Plan 07/28/22: Increase abilify to 15mg tomorrow morning 07/27/22: Continue with current medications and tx plan. 07/26/22: titrate Abilify to 10 mg starting tomorrow 07/25/22: continue daily ekGs to titrate Abilify to 20 mg in intervals. Monitor sedation on Klonopin, gait is steady, will move 2nd dose to hs. CXR for TB clearance for anticipated [facility] referral. 07/24/22: risks/benefits/alternatives reviewed re: Klonopin trial given random breakthrough anxiety. Discussed resuming Abilify oral dosing so can adjust/monitor QTc. Daily EKG ordered. patient agreeable and will start Abilify 5 mg daily today and Klonopin 0.25 mg po BID. She is ambulating well without her brace. consult PT for final exercises. 07/23/22: d/c Buspar as may be having residual serotonergic sensitivity, daily EKG per hospitalist recommendation, repeat labs unremarkable, vitals stable. Zofran prn. Hold Abilify maintenna due to day given QTc. 07/22/22: The patient was [facility] to [facility]) on q15 min checks (behavioral with suicide precautions) for safety. The patient will participate in group, recreational, and milieu therapies and will be offered additional individual and family sessions as clinically appropriate. Restarted Buspar on medical floor, repeat EKG in am to determine appropriateness of Abilify maintenna that is due. Hold Zyprexa. She is aware that would not recommend resume Vistaril or Lexapro. Will offer Buspar 5 mg TID prn as well as frequently requests prn and want to avoid benzos. Restart lamictal as plan of outpatient provider and has never titrated. PT consult as still receiving outpatient PT. Explore possible state hospital referral given need for longer term hospitalization. Inventory Assets Strengths: accepting of services, cooperative with unit routines Needs: improve coping skills, ongoing CM involvement in placement options Suicide Risk Level Suicide Risk Level: High-Moderate (q15 min suicide checks) (given severe depression with attempt prior to admission and regretful that she surivived with ongoing SI but feels safe in the hospital, denies any plans for in the hospital and agrees to alert nursing if she feels unable to remain safe, SI worsens or plan or inten or if she needs additional support) Risk Factors Assessment : Yes Do You Have Access To A Gun?: No Health Problems: Yes Mental Health Diagnoses: Yes Substance Use Disorders: No Previous Psychiatric Hospitalization: Yes Protective Factors Assessment Stable Relationships: Yes Interval History Identifying Information BAUTISTA ALLRED is a 21-year-old F who currently lives in [place], has a history of several inpatient stays on 3 S (most recently 07/24), and was admitted on 07/21/22 18:29 on a 201 voluntary commitment s/p medical admission for suicide attempt by OD. Chief Complaint "I just hurt so much". Review of Systems Sleep Information Total Hours of Sleep: 8.5 Sleep Comments: Meal Information Percent Meal Consumed - Breakfast: 100 Percent Meal Consumed - Lunch: 100 Percent Meal Consumed - Dinner: 50 Subjective Subjective Patient was seen & assessed and interval progress reviewed with treatment team nursing and social work. This morning presented to nurses station and told them she tried to self-harm by holding her neck, no bruising or cuts. Responding well to redirection but remains intermittently tearful. Continues to feel very depressed and focused on symptoms being entirely due to her medications and need for medication adjustments. Reviewed role of social isolation which she identifies as challenging but struggles to correlate as potentially impacting her mood changes. Continues to endorse SI and remains regretful that attempt was unsuccessful. Frustrated at times with lack of age matched peers to interact with which is what she typically enjoys and finds helpful for improving her mood during inpatient admissions. Physical Exam Psychiatric Orientation: alert and oriented x 3 Apperance: appropriately dressed and appropriately groomed Eye Contact: good eye contact Motor Behavior: no abnormal motor movements Speech: normal rate/rhythm/volume of speech Affect: + depressed affect, + tearful affect and + irritable affect Mood: + depressed mood and + irritable mood Thought Process: goal directed thought process Thought Content: reality based without delusions Suicidal Thoughts: denies suicidal plan (none for the hospital, regrets that alive from attempt prior to admission ) and denies suicidal intent; + reports suicidal thoughts (intermittent) Homicidal Thoughts: denies homicidal thoughts Hallucinations: no auditory hallucinations and no visual hallucinations Cognition: attention grossly intact and language grossly intact Estimated Intelligence: consistent with education level Insight: + limited insight Judgement: + limited judgement Vital Signs (Past 24 Hours) Last Vital Signs Temp 36.7 C 07/27/22 21:17 Pulse 96 H 07/27/22 06:47 Resp 16 07/27/22 06:00 BP 129/87 07/27/22 06:47 Pulse Ox 98 07/27/22 06:00 O2 Del Method 07/27/22 06:00 Results & Data ([facility]) Current Inpatient Medications Current Inpatient Medications: Current Inpatient Medications Acetaminophen (Acetaminophen 325 Mg Tab) 650 mg PO Q4H PRN PRN Reason: Headache or Minor Fever Stop: 08/20/22 18:18 Last Admin: 07/24/22 19:43 Dose: 650 mg Al Hydrox/Mg Hydrox/Simethicone (Aluminum/Magnesium Susp 30 Ml Udc) 30 ml PO Q4H PRN PRN Reason: GI Upset Stop: 08/20/22 18:18 Last Admin: 07/27/22 14:20 Dose: 30 ml Aripiprazole (Aripiprazole 15 Mg Tab) 15 mg PO QAM [facility] Stop: 08/28/22 08:59 Bismuth Subsalicylate (Bismuth Subsalicylate Liqd 236 Ml) 15 ml PO PRN PRN PRN Reason: Loose Stool Stop: 08/20/22 18:18 Clonazepam (Clonazepam 0.25 Mg Tab) 0.25 mg PO BID [facility] Stop: 08/24/22 20:59 Last Admin: 07/28/22 09:15 Dose: 0.25 mg Lamotrigine (Lamotrigine 25 Mg Tab) 25 mg PO HS [facility] Stop: 08/21/22 21:59 Last Admin: 07/27/22 21:06 Dose: 25 mg Magnesium Hydroxide (Magnesium Hydroxide Susp 30 Ml Udc) 30 ml PO DAILY PRN PRN Reason: Constipation Stop: 08/20/22 18:18 Ondansetron HCl (Ondansetron 4 Mg Od Tab) 4 mg PO Q6H PRN PRN Reason: Nausea Stop: 08/22/22 09:31 Last Admin: 07/25/22 06:28 Dose: 4 mg Pantoprazole Sodium (Pantoprazole 40 Mg Tab) 40 mg PO BID [facility] Stop: 08/21/22 11:44 Last Admin: 07/28/22 09:15 Dose: 40 mg Sodium Chloride (Sodium Chloride 0.65% Na Soln 45 Ml ([place])) 1 - 2 sprays NA PRN PRN PRN Reason: Nasal Dryness/Congestion Stop: 08/20/22 18:18 Mental Health & Subst Abuse Tx Therapist Name of Therapist: Hubert Martinez Storeroom Clerk Name of Storeroom Clerk: DANIE Watkins Post Discharge Appointments Primary Care Physician Name Of Family Doctor: Hubert Mcpherson
[2022-07-28] MEDS: busPIRone 5 MG TAB PO PRN (14:09)
[2022-07-28] MEDS: lamoTRIgine 25 MG TAB PO SCH (20:26)
[2022-07-29] MEDS: clonazePAM 0.25 MG TAB PO SCH ×2 (07:50→20:14)
[2022-07-29] MEDS: PANTOprazole 40 MG TAB PO SCH ×2 (07:51→20:15)
[2022-07-29] MEDS: ARIPiprazole 15 MG TAB PO SCH (07:52)
--- NOTE | 2022-07-29 08:41 | Psychiatric Progress Note ---
Date of Service July 29, 2022 Impression / Recommendations Impression 21 yo female with a history of mood dysregulation, complex trauma hx, worsening depression on transition to living independently as an adult, limited coping skills tested by ACL repair. Diagnostically consistent with recurrent MDD in context of limited coping skills and social isolation and increasingly presents with likely cluster B traits/BPD given chronicity of her SI and very limited coping skills for emotional distress/self-harm urges. MNPR due to social skills, knee recovery, limited distress tolerance 07/29/22: remains depressed but SI lessening a bit, feels better today about surviving attempt. Tolerating higher dose of abilify without any side effects. Unclear if some of her SI and tearfulness is triggered by isolation/lack of attention, seeming to be an aspect of limited coping skills/getting her needs met. (1) Depression with suicidal ideation: (2) Post traumatic stress disorder (PTSD): (3) Intentional overdose: (4) QT prolongation: (5) S/P ACL reconstruction: (6) MDD (major depressive disorder), recurrent episode, severe: Plan 07/29/22: Continue with current medications and tx plan. 07/28/22: Increase abilify to 15mg tomorrow morning 07/27/22: Continue with current medications and tx plan. 07/26/22: titrate Abilify to 10 mg starting tomorrow 07/25/22: continue daily ekGs to titrate Abilify to 20 mg in intervals. Monitor sedation on Klonopin, gait is steady, will move 2nd dose to hs. CX[facility]. 07/24/22: risks/benefits/alternatives reviewed re: Klonopin trial given random breakthrough anxiety. Discussed resuming Abilify oral dosing so can adjust/monitor QTc. Daily EKG ordered. patient agreeable and will start Abilify 5 mg daily today and Klonopin 0.25 mg po BID. She is ambulating well without her brace. consult PT for final exercises. 07/23/22: d/c Buspar as may be having residual serotonergic sensitivity, daily E KG per hospitalist recommendation, repeat labs unremarkable, vitals stable. Zofran prn. Hold Abilify maintenna due to day given QTc. 07/22/22: The patient was admitted to the [facility] (locked inpatient mental health unit) on q15 min checks (behavioral with suicide precautions) for safety. The patient will participate in group, recreational, and milieu therapies and will be offered additional individual and family sessions as clinically appropriate. Restarted Buspar on medical floor, repeat EKG in am to determine appropriateness of Abilify maintenna that is due. Hold Zyprexa. She is aware that would not recommend resume Vistaril or Lexapro. Will offer Buspar 5 mg TID prn as well as frequently requests prn and want to avoid benzos. Restart lamictal as plan of outpatient provider and has never titrated. PT consult as still receiving outpatient PT. Explore possible state hospital referral given need for longer term hospitalization. Inventory Assets Strengths: accepting of services, cooperative with unit routines Needs: improve coping skills, ongoing CM involvement in placement options Suicide Risk Level Suicide Risk Level: High-Moderate (q15 min suicide checks) (given severe depression with attempt prior to admission and with ongoing SI but feels safe in the hospital, denies any plans for in the hospital and agrees to alert nursing if she feels unable to remain safe, SI worsens or plan or inten or if she needs additional support) Risk Factors Assessment : Yes Do You Have Access To A Gun?: No Health Problems: Yes Mental Health Diagnoses: Yes Substance Use Disorders: No Previous Psychiatric Hospitalization: Yes Protective Factors Assessment Stable Relationships: Yes Interval History Identifying Information BAUTISTA ALLRED is a 21-year-old F who currently lives in [place], has a history of several inpatient stays on [facility] (most recently 07/24), and was admitted on 07/21/22 18:29 on a 201 voluntary commitment s/p medical admission for suicide attempt by OD. Chief Complaint "I'm ok, a little better than yesterday". Review of Systems Sleep Information Total Hours of Sleep: 10 Meal Information Percent Meal Consumed - Breakfast: 100 Percent Meal Consumed - Lunch: 100 Percent Meal Consumed - Dinner: 100 Subjective Subjective Patient was seen & assessed and interval progress reviewed with treatment team nursing and social work. Participating in groups. Still intermittently tearful at times especially when not engaged by staff. Today reports her mood remains depressed but a bit better because "I'm been really thinking about things" but cannot elaborate on this. No side effects from the higher dose of Abilify. Still would like the Abilify MORELOS once she confirms higher dose and we ensure QTc remains stable. Physical Exam Psychiatric Orientation: alert and oriented x 3 Apperance: appropriately dressed and appropriately groomed Eye Contact: good eye contact Motor Behavior: no abnormal motor movements Speech: normal rate/rhythm/volume of speech Affect: + depressed affect and + tearful affect Mood: + depressed mood and + anxious mood Thought Process: goal directed thought process Thought Content: reality based without delusions Suicidal Thoughts: denies suicidal plan (none for the hospital, feeling more remorseful about attempt ) and denies suicidal intent; + reports suicidal thoughts (intermittent) Homicidal Thoughts: denies homicidal thoughts Hallucinations: no auditory hallucinations and no visual hallucinations Cognition: attention grossly intact and language grossly intact Estimated Intelligence: consistent with education level Insight: + limited insight Judgement: + limited judgement Vital Signs (Past 24 Hours) Last Vital Signs Temp 36.8 C 07/29/22 06:20 Pulse 92 H 07/29/22 06:20 Resp 18 07/29/22 06:20 BP 94/68 L 07/29/22 06:21 Pulse Ox 99 07/29/22 06:20 O2 Del Method 07/29/22 06:20 Results & Data ([facility]) Current Inpatient Medications Current Inpatient Medications: Current Inpatient Medications Acetaminophen (Acetaminophen 325 Mg Tab) 650 mg PO Q4H PRN PRN Reason: Headache or Minor Fever Stop: 08/20/22 18:18 Last Admin: 07/24/22 19:43 Dose: 650 mg Al Hydrox/Mg Hydrox/Simethicone (Aluminum/Magnesium Susp 30 Ml Udc) 30 ml PO Q4H PRN PRN Reason: GI Upset Stop: 08/20/22 18:18 Last Admin: 07/27/22 14:20 Dose: 30 ml Aripiprazole (Aripiprazole 15 Mg Tab) 15 mg PO QAM IFEOMA Stop: 08/28/22 08:59 Last Admin: 07/29/22 07:52 Dose: 15 mg Bismuth Subsalicylate (Bismuth Subsalicylate Liqd 236 Ml) 15 ml PO PRN PRN PRN Reason: Loose Stool Stop: 08/20/22 18:18 Buspirone HCl (Buspirone 5 Mg Tab) 5 mg PO TID PRN PRN Reason: Anxiety/Agitation Stop: 08/27/22 13:59 Last Admin: 07/28/22 14:09 Dose: 5 mg Clonazepam (Clonazepam 0.25 Mg Tab) 0.25 mg PO BID IFEOMA Stop: 08/24/22 20:59 Last Admin: 07/29/22 07:50 Dose: 0.25 mg Lamotrigine (Lamotrigine 25 Mg Tab) 25 mg PO HS IFEOMA Stop: 08/21/22 21:59 Last Admin: 07/28/22 20:26 Dose: 25 mg Magnesium Hydroxide (Magnesium Hydroxide Susp 30 Ml Udc) 30 ml PO DAILY PRN PRN Reason: Constipation Stop: 08/20/22 18:18 Ondansetron HCl (Ondansetron 4 Mg Od Tab) 4 mg PO Q6H PRN PRN Reason: Nausea Stop: 08/22/22 09:31 Last Admin: 07/25/22 06:28 Dose: 4 mg Pantoprazole Sodium (Pantoprazole 40 Mg Tab) 40 mg PO BID IFEOMA Stop: 08/21/22 11:44 Last Admin: 07/29/22 07:51 Dose: 40 mg Sodium Chloride (Sodium Chloride 0.65% Na Soln 45 Ml ([place])) 1 - 2 sprays NA PRN PRN PRN Reason: Nasal Dryness/Congestion Stop: 08/20/22 18:18 Mental Health & Subst Abuse Tx Therapist Name of Therapist: Hubert Martinez Veterinary Pathologist Name of Veterinary Pathologist: DANIE Watkins Post Discharge Appointments Primary Care Physician Name Of Family Doctor: Hubert Mcpherson
[2022-07-29] MEDS: busPIRone 5 MG TAB PO PRN (13:02)
[2022-07-29] MEDS: lamoTRIgine 25 MG TAB PO SCH (20:15)
--- NOTE | 2022-07-30 08:37 | Psychiatric Progress Note ---
Date of Service July 30, 2022 Impression / Recommendations Impression 21 yo female with a history of mood dysregulation, complex trauma hx, worsening depression on transition to living independently as an adult, limited coping skills tested by ACL repair. Diagnostically consistent with recurrent MDD in context of limited coping skills and social isolation and increasingly presents with likely cluster B traits/BPD given chronicity of her SI and very limited coping skills for emotional distress/self-harm urges. MNPR due to social skills, knee recovery, limited distress tolerance 07/29/22: Mood quite labile today, went from bright affect and positive mood to extreme hopelessness and helplessness with limited insight and judgment which remains very concerning given her history of rapid decompensation in outpatient setting and high emotional reactivity leading to suicide attempt. Continues to find abilify helpful and desires dose increase, will then recheck EKG prior to consider for MORELOS. Benefit of MORELOS is reduced risk for medication overdose so may make sense to attempt titration to MORELOS monotherapy. (1) Depression with suicidal ideation: (2) Post traumatic stress disorder (PTSD): (3) Intentional overdose: (4) QT prolongation: (5) S/P ACL reconstruction: (6) MDD (major depressive disorder), recurrent episode, severe: Plan 07/30/22: Increase abilify to 20mg qd. 07/29/22: Continue with current medications and tx plan. 07/28/22: Increase abilify to 15mg tomorrow morning 07/27/22: Continue with current medications and tx plan. 07/26/22: titrate Abilify to 10 mg starting tomorrow 07/25/22: continue daily ekGs to titrate Abilify to 20 mg in intervals. Monitor sedation on Klonopin, gait is steady, will move 2nd dose to hs. CXR for TB clearance for anticipated [facility] hospital referral. 07/24/22: risks/benefits/alternatives reviewed re: Klonopin trial given random breakthrough anxiety. Discussed resuming Abilify oral dosing so can adjust/monitor QTc. Daily EKG ordered. patient agreeable and will start Abilify 5 mg daily today and Klonopin 0.25 mg po BID. She is ambulating well without her brace. consult PT for final exercises. 07/23/22: d/c Buspar as may be having residual serotonergic sensitivity, daily EKG per hospitalist recommendation, repeat labs unremarkable, vitals stable. Zofran prn. Hold Abilify maintenna due to day given QTc. 07/22/22: The patient was admitted [facility] ([facility] mental health unit) on q15 min checks (behavioral with suicide precautions) for safety. The patient will participate in group, recreational, and milieu therapies and will be offered additional individual and family sessions as clinically appropriate. Restarted Buspar on medical floor, repeat EKG in am to determine appropriateness of Abilify maintenna that is due. Hold Zyprexa. She is aware that would not recommend resume Vistaril or Lexapro. Will offer Buspar 5 mg TID prn as well as frequently requests prn and want to avoid benzos. Restart lamictal as plan of outpatient provider and has never titrated. PT consult as still receiving outpatient PT. Explore possible state hospital referral given need for longer term hospitalization. Inventory Assets Strengths: accepting of services, cooperative with unit routines Needs: improve coping skills, ongoing CM involvement in placement options Suicide Risk Level Suicide Risk Level: High-Moderate (q15 min suicide checks) (given severe depression with attempt prior to admission and with ongoing SI and mood lability but feels safe in the hospital, denies any plans for in the hospital and agrees to alert nursing if she feels unable to remain safe, SI worsens or plan or inten or if she needs additional support) Risk Factors Assessment : Yes Do You Have Access To A Gun?: No Health Problems: Yes Mental Health Diagnoses: Yes Substance Use Disorders: No Previous Psychiatric Hospitalization: Yes Protective Factors Assessment Stable Relationships: Yes Interval History Identifying Information BAUTISTA ALLRED is a 21-year-old F who currently lives in [place], has a history of several inpatient stays on [facility] (most recently 07/24), and was admitted on 07/21/22 18:29 on a 201 voluntary commitment s/p medical admission for suicide attempt by OD. Chief Complaint "I'm ok". Review of Systems Sleep Information Total Hours of Sleep: 7 Meal Information Percent Meal Consumed - Breakfast: 100 Percent Meal Consumed - Lunch: 100 Percent Meal Consumed - Dinner: 50 Subjective Subjective Patient was seen & assessed and interval progress reviewed with treatment team nursing and social work. Eager for new peers on the unit. Engaging in groups. This morning had bright affect and reported good mood on meeting with me and was smiling but about 15 minutes later became very tearful expressing terrible mood, slamming fists on the table due to frustration and expressed feeling lack of control due to hospitalization and desire to sign a 72 hour notice which she signed. Remained very tearful despite multiple attempts to help her process emotions. Physical Exam Psychiatric Orientation: alert and oriented x 3 Apperance: appropriately dressed and appropriately groomed Eye Contact: good eye contact Motor Behavior: no abnormal motor movements Speech: normal rate/rhythm/volume of speech Affect: euthymic affect, + depressed affect, + tearful affect, + labile affect and + irritable affect Mood: + depressed mood, + anxious mood and + irritable mood Thought Process: + circumstantial thought process and + concrete thought process Thought Content: reality based without delusions Suicidal Thoughts: denies suicidal plan (none for the hospital, feeling more remorseful about attempt ) and denies suicidal intent; + reports suicidal thoughts (intermittent, come on quickly and intensely going right to hopelessness) Homicidal Thoughts: denies homicidal thoughts Hallucinations: no auditory hallucinations and no visual hallucinations Cognition: attention grossly intact and language grossly intact Estimated Intelligence: consistent with education level Insight: + limited insight Judgement: + limited judgement Vital Signs (Past 24 Hours) Last Vital Signs Temp 36.7 C 07/30/22 06:17 Pulse 72 07/30/22 06:17 Resp 18 07/30/22 06:17 BP 101/68 07/30/22 06:25 Pulse Ox 99 07/29/22 06:20 O2 Del Method 07/29/22 06:20 Results & Data ([facility]) Current Inpatient Medications Current Inpatient Medications: Current Inpatient Medications Acetaminophen (Acetaminophen 325 Mg Tab) 650 mg PO Q4H PRN PRN Reason: Headache or Minor Fever Stop: 08/20/22 18:18 Last Admin: 07/24/22 19:43 Dose: 650 mg Al Hydrox/Mg Hydrox/Simethicone (Aluminum/Magnesium Susp 30 Ml Udc) 30 ml PO Q4H PRN PRN Reason: GI Upset Stop: 08/20/22 18:18 Last Admin: 07/27/22 14:20 Dose: 30 ml Aripiprazole (Aripiprazole 15 Mg Tab) 15 mg PO QAM IFEOMA Stop: 08/28/22 08:59 Last Admin: 07/29/22 07:52 Dose: 15 mg Bismuth Subsalicylate (Bismuth Subsalicylate Liqd 236 Ml) 15 ml PO PRN PRN PRN Reason: Loose Stool Stop: 08/20/22 18:18 Buspirone HCl (Buspirone 5 Mg Tab) 5 mg PO TID PRN PRN Reason: Anxiety/Agitation Stop: 08/27/22 13:59 Last Admin: 07/29/22 13:02 Dose: 5 mg Clonazepam (Clonazepam 0.25 Mg Tab) 0.25 mg PO BID [facility] Stop: 08/24/22 20:59 Last Admin: 07/29/22 20:14 Dose: 0.25 mg Lamotrigine (Lamotrigine 25 Mg Tab) 25 mg PO HS [facility] Stop: 08/21/22 21:59 Last Admin: 07/29/22 20:15 Dose: 25 mg Magnesium Hydroxide (Magnesium Hydroxide Susp 30 Ml Udc) 30 ml PO DAILY PRN PRN Reason: Constipation Stop: 08/20/22 18:18 Ondansetron HCl (Ondansetron 4 Mg Od Tab) 4 mg PO Q6H PRN PRN Reason: Nausea Stop: 08/22/22 09:31 Last Admin: 07/25/22 06:28 Dose: 4 mg Pantoprazole Sodium (Pantoprazole 40 Mg Tab) 40 mg PO BID [facility] Stop: 08/21/22 11:44 Last Admin: 07/29/22 20:15 Dose: 40 mg Sodium Chloride (Sodium Chloride 0.65% Na Soln 45 Ml ([place])) 1 - 2 sprays NA PRN PRN PRN Reason: Nasal Dryness/Congestion Stop: 08/20/22 18:18 Mental Health & Subst Abuse Tx Therapist Name of Therapist: Hubert Martinez Control Engineer Name of Control Engineer: DANIE Watkins Post Discharge Appointments Primary Care Physician Name Of Family Doctor: Hubret Mcpherson
[2022-07-30] MEDS: PANTOprazole 40 MG TAB PO SCH ×2 (09:19→20:23)
[2022-07-30] MEDS: clonazePAM 0.25 MG TAB PO SCH ×2 (09:19→20:22)
[2022-07-30] MEDS: ARIPiprazole 15 MG TAB PO SCH (09:19)
[2022-07-30] MEDS: EUCERIN CR 120 GM JAR EXT PRN (13:43)
[2022-07-30] MEDS: lamoTRIgine 25 MG TAB PO SCH (20:23)
[2022-07-30] MEDS: ACETAMINOPHEN 325 MG TAB PO PRN (20:23)
[2022-07-31] MEDS: PANTOprazole 40 MG TAB PO SCH ×2 (08:59→20:22)
[2022-07-31] MEDS: clonazePAM 0.25 MG TAB PO SCH ×2 (08:59→20:22)
[2022-07-31] MEDS: ARIPiprazole 10 MG TAB PO SCH (08:59)
--- NOTE | 2022-07-31 12:10 | Psychiatric Progress Note ---
Date of Service July 31, 2022 Impression / Recommendations Impression 21 yo female with a history of mood dysregulation, complex trauma hx, worsening depression on transition to living independently as an adult, limited coping skills tested by ACL repair. Diagnostically consistent with recurrent MDD in context of limited coping skills and social isolation and increasingly presents with likely cluster B traits/BPD given chronicity of her SI and very limited coping skills for emotional distress/self-harm urges. MNPR due to social skills, knee recovery, limited distress tolerance 07/31/22: Ongoing mood lability with poor insight into factors leading to suicide attempt. Tolerating higher dose of abilify. Will recheck EKG QTc tomorrow after second dose of 20mg. (1) Post traumatic stress disorder (PTSD): (2) Intentional overdose: (3) QT prolongation: (4) S/P ACL reconstruction: (5) MDD (major depressive disorder), recurrent episode, severe: (6) Intellectual disability: Plan 07/31/22: Continue with current medications and tx plan. EKG tomorrow to reassess QTc. 07/30/22: Increase abilify to 20mg qd. 07/29/22: Continue with current medications and tx plan. 07/28/22: Increase abilify to 15mg tomorrow morning 07/27/22: Continue with current medications and tx plan. 07/26/22: titrate Abilify to 10 mg starting tomorrow 07/25/22: continue daily ekGs to titrate Abilify to 20 mg in intervals. Monitor sedation on Klonopin, gait is steady, will move 2nd dose to hs. CXR for TB clearance for anticipated [facility] referral. 07/24/22: risks/benefits/alternatives reviewed re: Klonopin trial given random breakthrough anxiety. Discussed resuming Abilify oral dosing so can adjust/monitor QTc. Daily EKG ordered. patient agreeable and will start Abilify 5 mg daily today and Klonopin 0.25 mg po BID. She is ambulating well without her brace. consult PT for final exercises. 07/23/22: d/c Buspar as may be having residual serotonergic sensitivity, daily EKG per hospitalist recommendation, repeat labs unremarkable, vitals stable. Zofran prn. Hold Abilify maintenna due to day given QTc. 07/22/22: The patient was admitted to the [facility] ([facility] inpatient mental health unit) on q15 min checks (behavioral with suicide precautions) for safety. The patient will participate in group, recreational, and milieu therapies and will be offered additional individual and family sessions as clinically appropriate. Restarted Buspar on medical floor, repeat EKG in am to determine appropriateness of Abilify maintenna that is due. Hold Zyprexa. She is aware that would not recommend resume Vistaril or Lexapro. Will offer Buspar 5 mg TID prn as well as frequently requests prn and want to avoid benzos. Restart lamictal as plan of outpatient provider and has never titrated. PT consult as still receiving outpatient PT. Explore possible state hospital referral given need for longer term hospitalization. Inventory Assets Strengths: accepting of services, cooperative with unit routines Needs: improve coping skills, ongoing CM involvement in placement options Suicide Risk Level Suicide Risk Level: High-Moderate (q15 min suicide checks) (given severe depression with attempt prior to admission and with ongoing SI and mood lability but feels safe in the hospital, denies any plans for in the hospital and agrees to alert nursing if she feels unable to remain safe, SI worsens or plan or inten or if she needs additional support) Risk Factors Assessment : Yes Do You Have Access To A Gun?: No Health Problems: Yes Mental Health Diagnoses: Yes Substance Use Disorders: No Previous Psychiatric Hospitalization: Yes Protective Factors Assessment Stable Relationships: Yes Interval History Identifying Information BAUTISTA ALLRED is a 21-year-old F who currently lives in [place], has a history of several inpatient stays on 3 (most recently 07/24), and was admitted on 07/21/22 18:29 on a 201 voluntary commitment s/p medical admission for suicide attempt by OD. Chief Complaint "I'm doing good". Review of Systems Sleep Information Total Hours of Sleep: 7 Meal Information Percent Meal Consumed - Breakfast: 100 Percent Meal Consumed - Lunch: 100 Percent Meal Consumed - Dinner: 100 Subjective Subjective Patient was seen & assessed and interval progress reviewed with treatment team nursing and social work. Mood and affect continue to fluctuate dramatically throughout the day. This morning bright with peers but later more despondent and isolative to her room. Rescinded her 72 hour notice. Tells me she is sick of being in the hospital but remains unable to discuss any potential precipitants or causes of her suicide attempt. Engaged root cause analysis of the attempt at developmental appropriate level but she was unable to identify anything leading up to attempt or engage in meaningful discussion about this. Does like higher dose of abilify and remains hopeful to get Abilify MORELOS as she feels the shot "works better and always levels out my mood". Noted she wishes she were at a different hospital stating "I don't like it here, it's not comfortable" but also unable to tell me anything we can do to help her feel more comfortable or make things more comfortable for her. Has not been doing any of her PT exercises but agrees to discuss this with PT if they come by today to see her. Physical Exam Psychiatric Orientation: alert and oriented x 3 Apperance: appropriately dressed and appropriately groomed Eye Contact: good eye contact Motor Behavior: no abnormal motor movements Speech: normal rate/rhythm/volume of speech Affect: + labile affect Mood: + depressed mood, + anxious mood and + irritable mood Thought Process: + circumstantial thought process and + concrete thought process Thought Content: reality based without delusions Suicidal Thoughts: denies suicidal plan (none for the hospital, feeling more remorseful about attempt ) and denies suicidal intent; + reports suicidal thoughts (intermittent, come on quickly and intensely going right to hopelessness) Homicidal Thoughts: denies homicidal thoughts Hallucinations: no auditory hallucinations and no visual hallucinations Cognition: attention grossly intact and language grossly intact Estimated Intelligence: consistent with education level Insight: + limited insight Judgement: + limited judgement Vital Signs (Past 24 Hours) Last Vital Signs Temp 36.3 C L 07/31/22 06:22 Pulse 73 07/31/22 06:22 Resp 18 07/31/22 06:22 BP 162/88 H 07/31/22 06:25 Pulse Ox 99 07/29/22 06:20 O2 Del Method 07/29/22 06:20 Results & Data ([facility]) Current Inpatient Medications Current Inpatient Medications: Current Inpatient Medications Acetaminophen (Acetaminophen 325 Mg Tab) 650 mg PO Q4H PRN PRN Reason: Headache or Minor Fever Stop: 08/20/22 18:18 Last Admin: 07/30/22 20:23 Dose: 650 mg Al Hydrox/Mg Hydrox/Simethicone (Aluminum/Magnesium Susp 30 Ml Udc) 30 ml PO Q4H PRN PRN Reason: GI Upset Stop: 08/20/22 18:18 Last Admin: 07/27/22 14:20 Dose: 30 ml Aripiprazole (Aripiprazole 10 Mg Tab) 20 mg PO QAM [facility] Stop: 08/30/22 08:59 Last Admin: 07/31/22 08:59 Dose: 20 mg Bismuth Subsalicylate (Bismuth Subsalicylate Liqd 236 Ml) 15 ml PO PRN PRN PRN Reason: Loose Stool Stop: 08/20/22 18:18 Buspirone HCl (Buspirone 5 Mg Tab) 5 mg PO TID PRN PRN Reason: Anxiety/Agitation Stop: 08/27/22 13:59 Last Admin: 07/29/22 13:02 Dose: 5 mg Clonazepam (Clonazepam 0.25 Mg Tab) 0.25 mg PO BID [facility] Stop: 08/24/22 20:59 Last Admin: 07/31/22 08:59 Dose: 0.25 mg Lamotrigine (Lamotrigine 25 Mg Tab) 25 mg PO HS [facility] Stop: 08/21/22 21:59 Last Admin: 07/30/22 20:23 Dose: 25 mg Magnesium Hydroxide (Magnesium Hydroxide Susp 30 Ml Udc) 30 ml PO DAILY PRN PRN Reason: Constipation Stop: 08/20/22 18:18 Multi-Ingredient Cream (Eucerin Cr 120 Gm Jar) 1 appln EXT DAILY PRN PRN Reason: dry skin over knee Stop: 08/29/22 12:40 Last Admin: 07/30/22 13:43 Dose: 1 appln Ondansetron HCl (Ondansetron 4 Mg Od Tab) 4 mg PO Q6H PRN PRN Reason: Nausea Stop: 08/22/22 09:31 Last Admin: 07/25/22 06:28 Dose: 4 mg Pantoprazole Sodium (Pantoprazole 40 Mg Tab) 40 mg PO BID [facility] Stop: 08/21/22 11:44 Last Admin: 07/31/22 08:59 Dose: 40 mg Sodium Chloride (Sodium Chloride 0.65% Na Soln 45 Ml ([place])) 1 - 2 sprays NA PRN PRN PRN Reason: Nasal Dryness/Congestion Stop: 08/20/22 18:18 Mental Health & Subst Abuse Tx Therapist Name of Therapist: Hubert Martinez Technician Preventative Medicine Name of Technician Preventative Medicine: DANIE Watkins Post Discharge Appointments Primary Care Physician Name Of Family Doctor: Hubert Mcpherson
[2022-07-31] MEDS: lamoTRIgine 25 MG TAB PO SCH (20:22)
[2022-07-31] MEDS: ACETAMINOPHEN 325 MG TAB PO PRN (20:48)
[2022-08-01] MEDS: clonazePAM 0.25 MG TAB PO SCH ×2 (08:36→21:51)
[2022-08-01] MEDS: PANTOprazole 40 MG TAB PO SCH ×2 (08:36→21:51)
[2022-08-01] MEDS: ARIPiprazole 10 MG TAB PO SCH (08:36)
--- NOTE | 2022-08-01 09:40 | Psychiatric Progress Note ---
Date of Service August 01, 2022 Impression / Recommendations Impression 21 yo female with a history of mood dysregulation, complex trauma hx, worsening depression on transition to living independently as an adult, limited coping skills tested by ACL repair. Diagnostically consistent with recurrent MDD in context of limited coping skills and social isolation and increasingly presents with likely cluster B traits/BPD given chronicity of her SI and very limited coping skills for emotional distress/self-harm urges. MNPR due to social skills, knee recovery, limited distress tolerance 08/01/22: Ongoing mood lability with poor insight into factors leading to suicide attempt and difficulty utilizing coping skills. Tolerating higher dose of abilify. EKG repeated and QTc normal and <500ms and normal sinus rhythm. Will plan for Abilify MORELOS in 2 days if she continues to tolerate po dose. (1) Post traumatic stress disorder (PTSD): (2) Intentional overdose: (3) QT prolongation: (4) S/P ACL reconstruction: (5) MDD (major depressive disorder), recurrent episode, severe: (6) Intellectual disability: Plan 08/01/22: Continue with current medications and tx plan. 07/31/22: Continue with current medications and tx plan. EKG tomorrow to reassess QTc. 07/30/22: Increase abilify to 20mg qd. 07/29/22: Continue with current medications and tx plan. 07/28/22: Increase abilify to 15mg tomorrow morning 07/27/22: Continue with current medications and tx plan. 07/26/22: titrate Abilify to 10 mg starting tomorrow 07/25/22: continue daily ekGs to titrate Abilify to 20 mg in intervals. Monitor sedation on Klonopin, gait is steady, will move 2nd dose to hs. CXR for TB clearance for anticipated [facility] hospital referral. 07/24/22: risks/benefits/alternatives reviewed re: Klonopin trial given random breakthrough anxiety. Discussed resuming Abilify oral dosing so can adjust/monitor QTc. Daily EKG ordered. patient agreeable and will start Abilify 5 mg daily today and Klonopin 0.25 mg po BID. She is ambulating well without her brace. consult PT for final exercises. 07/23/22: d/c Buspar as may be having residual serotonergic sensitivity, daily EKG per hospitalist recommendation, repeat labs unremarkable, vitals stable. Zofran prn. Hold Abilify maintenna due to day given QTc. 07/22/22: The patient was [facility] to the [facility] on q15 min checks (behavioral with suicide precautions) for safety. The patient will participate in group, recreational, and milieu therapies and will be offered additional individual and family sessions as clinically appropriate. Restarted Buspar on medical floor, repeat EKG in am to determine appropriateness of Abilify maintenna that is due. Hold Zyprexa. She is aware that would not recommend resume Vistaril or Lexapro. Will offer Buspar 5 mg TID prn as well as frequently requests prn and want to avoid benzos. Restart lamictal as plan of outpatient provider and has never titrated. PT consult as still receiving outpatient PT. Explore possible state hospital referral given need for longer term hospitalization. Inventory Assets Strengths: accepting of services, cooperative with unit routines Needs: improve coping skills, ongoing CM involvement in placement options Suicide Risk Level Suicide Risk Level: High-Moderate (q15 min suicide checks) (given severe depression with attempt prior to admission and with ongoing SI and mood lability but feels safe in the hospital, denies any plans for in the hospital and agrees to alert nursing if she feels unable to remain safe, SI worsens or plan or inten or if she needs additional support) Risk Factors Assessment : Yes Do You Have Access To A Gun?: No Health Problems: Yes Mental Health Diagnoses: Yes Substance Use Disorders: No Previous Psychiatric Hospitalization: Yes Protective Factors Assessment Stable Relationships: Yes Interval History Identifying Information BAUTISTA ALLRED is a 21-year-old F who currently lives in [place], has a history of several inpatient stays on 3 S (most recently 07/24), and was admitted on 07/21/22 18:29 on a 201 voluntary commitment s/p medical admission for suicide attempt by OD. Chief Complaint "I'm good". Review of Systems Sleep Information Total Hours of Sleep: 5.25 Sleep Comments: Pt up to day room once, but returned to room when asked. Meal Information Percent Meal Consumed - Breakfast: 100 Percent Meal Consumed - Lunch: 100 Percent Meal Consumed - Dinner: 100 Subjective Subjective Patient was seen & assessed and interval progress reviewed with treatment team nursing and social work. Superficially bright at times but can decompensate quickly and become tearful or isolative at various points during the day. Enjoys interacting with peers. Denies any side effects from Abilify. Remains agreeable to EKG. Remains very concrete with limited reasoning skills. Physical Exam Psychiatric Orientation: alert and oriented x 3 Apperance: appropriately dressed and appropriately groomed Eye Contact: good eye contact Motor Behavior: no abnormal motor movements Speech: normal rate/rhythm/volume of speech Affect: + labile affect Mood: + depressed mood, + anxious mood and + irritable mood Thought Process: + circumstantial thought process and + concrete thought process Thought Content: reality based without delusions Suicidal Thoughts: denies suicidal plan (none for the hospital ) and denies suicidal intent; + reports suicidal thoughts (intermittent, come on quickly and intensely going right to hopelessness) Homicidal Thoughts: denies homicidal thoughts Hallucinations: no auditory hallucinations and no visual hallucinations Cognition: attention grossly intact and language grossly intact Estimated Intelligence: consistent with education level Insight: + limited insight Judgement: + limited judgement Vital Signs (Past 24 Hours) Last Vital Signs Temp 36.4 C 08/01/22 06:29 Pulse 79 08/01/22 06:29 Resp 18 08/01/22 06:29 BP 95/64 L 08/01/22 06:32 Pulse Ox 99 07/29/22 06:20 O2 Del Method 07/29/22 06:20 Results & Data ([facility]) Current Inpatient Medications Current Inpatient Medications: Current Inpatient Medications Acetaminophen (Acetaminophen 325 Mg Tab) 650 mg PO Q4H PRN PRN Reason: Headache or Minor Fever Stop: 08/20/22 18:18 Last Admin: 07/31/22 20:48 Dose: 650 mg Al Hydrox/Mg Hydrox/Simethicone (Aluminum/Magnesium Susp 30 Ml Udc) 30 ml PO Q4H PRN PRN Reason: GI Upset Stop: 08/20/22 18:18 Last Admin: 07/27/22 14:20 Dose: 30 ml Aripiprazole (Aripiprazole 10 Mg Tab) 20 mg PO QAM [facility] Stop: 08/30/22 08:59 Last Admin: 08/01/22 08:36 Dose: 20 mg Bismuth Subsalicylate (Bismuth Subsalicylate Liqd 236 Ml) 15 ml PO PRN PRN PRN Reason: Loose Stool Stop: 08/20/22 18:18 Last Admin: 07/31/22 13:35 Dose: 15 ml Buspirone HCl (Buspirone 5 Mg Tab) 5 mg PO TID PRN PRN Reason: Anxiety/Agitation Stop: 08/27/22 13:59 Last Admin: 07/29/22 13:02 Dose: 5 mg Clonazepam (Clonazepam 0.25 Mg Tab) 0.25 mg PO BID [facility] Stop: 08/24/22 20:59 Last Admin: 08/01/22 08:36 Dose: 0.25 mg Lamotrigine (Lamotrigine 25 Mg Tab) 25 mg PO HS [facility] Stop: 08/21/22 21:59 Last Admin: 07/31/22 20:22 Dose: 25 mg Magnesium Hydroxide (Magnesium Hydroxide Susp 30 Ml Udc) 30 ml PO DAILY PRN PRN Reason: Constipation Stop: 08/20/22 18:18 Multi-Ingredient Cream (Eucerin Cr 120 Gm Jar) 1 appln EXT DAILY PRN PRN Reason: dry skin over knee Stop: 08/29/22 12:40 Last Admin: 07/30/22 13:43 Dose: 1 appln Ondansetron HCl (Ondansetron 4 Mg Od Tab) 4 mg PO Q6H PRN PRN Reason: Nausea Stop: 08/22/22 09:31 Last Admin: 07/25/22 06:28 Dose: 4 mg Pantoprazole Sodium (Pantoprazole 40 Mg Tab) 40 mg PO BID [facility] Stop: 08/21/22 11:44 Last Admin: 08/01/22 08:36 Dose: 40 mg Sodium Chloride (Sodium Chloride 0.65% Na Soln 45 Ml ([place])) 1 - 2 sprays NA PRN PRN PRN Reason: Nasal Dryness/Congestion Stop: 08/20/22 18:18 Mental Health & Subst Abuse Tx Therapist Name of Therapist: Hubert Martinez Shower Doors And Panels Fabricator Name of Shower Doors And Panels Fabricator: DANIE Watkins Post Discharge Appointments Primary Care Physician Name Of Family Doctor/PCP: Hubert Mcpherson
--- NOTE | 2022-08-01 18:17 | Electrocardiogram Report ---
Test Reason : Blood Pressure : / mmHG Vent. Rate : 069 BPM Atrial Rate : 069 BPM P-R Int : 118 ms QRS Dur : 082 ms QT Int : 388 ms P-R-T Axes : 051 051 035 degrees QTc Int : 415 ms Normal sinus rhythm Normal ECG When compared with ECG of 27-JUL-2022 10:19, QT has shortened Confirmed by Vlad Tate ([id number] on 08/01/2022 6:17:39 PM Referred By: Kierra Call Confirmed By:Sohail Tate
[2022-08-01] MEDS: EUCERIN CR 120 GM JAR EXT PRN (18:36)
[2022-08-01] MEDS: lamoTRIgine 25 MG TAB PO SCH (21:51)
[2022-08-01] MEDS: busPIRone 5 MG TAB PO PRN (21:52)
[2022-08-02] MEDS: ARIPiprazole 10 MG TAB PO SCH (08:40)
[2022-08-02] MEDS: PANTOprazole 40 MG TAB PO SCH ×2 (08:40→22:00)
[2022-08-02] MEDS: clonazePAM 0.25 MG TAB PO SCH ×2 (08:40→21:59)
--- NOTE | 2022-08-02 13:49 | Psychiatric Progress Note ---
Date of Service August 02, 2022 Impression / Recommendations Impression 21 yo female with a history of mood dysregulation, complex trauma hx, worsening depression on transition to living independently as an adult, limited coping skills tested by ACL repair. Diagnostically consistent with recurrent MDD in context of limited coping skills and social isolation and increasingly presents with likely cluster B traits/BPD given chronicity of her SI and very limited coping skills for emotional distress/self-harm urges. MNPR due to social skills, knee recovery, limited distress tolerance 08/02/22: Ongoing mood lability with poor insight into factors leading to suicide attempt and difficulty utilizing coping skills. More depressed and tearful today with SI. Tolerating higher dose of abilify, brief episode of visual changes which seems to be due to anxiety and not medication side effect but will continue to monitor. Will plan for Abilify MORELOS tomorrow if she continues to tolerate po dose and no worsening of vision changes. (1) Post traumatic stress disorder (PTSD): (2) Intentional overdose: (3) QT prolongation: (4) S/P ACL reconstruction: (5) MDD (major depressive disorder), recurrent episode, severe: (6) Intellectual disability: Plan 08/02/22: Ongoing insight-oriented approach. Continue current medications and tx plan. 08/01/22: Continue with current medications and tx plan. 07/31/22: Continue with current medications and tx plan. EKG tomorrow to reassess QTc. 07/30/22: Increase abilify to 20mg qd. 07/29/22: Continue with current medications and tx plan. 07/28/22: Increase abilify to 15mg tomorrow morning 07/27/22: Continue with current medications and tx plan. 07/26/22: titrate Abilify to 10 mg starting tomorrow 07/25/22: continue daily ekGs to titrate Abilify to 20 mg in intervals. Monitor sedation on Klonopin, gait is steady, will move 2nd dose to hs. CXR for TB clearance for anticipated [facility] hospital referral. 07/24/22: risks/benefits/alternatives reviewed re: Klonopin trial given random breakthrough anxiety. Discussed resuming Abilify oral dosing so can adjust/monitor QTc. Daily EKG ordered. patient agreeable and will start Abilify 5 mg daily today and Klonopin 0.25 mg po BID. She is ambulating well without her brace. consult PT for final exercises. 07/23/22: d/c Buspar as may be having residual serotonergic sensitivity, daily EKG per hospitalist recommendation, repeat labs unremarkable, vitals stable. Zofran prn. Hold Abilify maintenna due to day given QTc. 07/22/22: The patient was admitted to the [facility] ([facility] mental health unit) on q15 min checks (behavioral with suicide precautions) for safety. The patient will participate in group, recreational, and milieu therapies and will be offered additional individual and family sessions as clinically appropriate. Restarted Buspar on medical floor, repeat EKG in am to determine appropriateness of Abilify maintenna that is due. Hold Zyprexa. She is aware that would not recommend resume Vistaril or Lexapro. Will offer Buspar 5 mg TID prn as well as frequently requests prn and want to avoid benzos. Restart lamictal as plan of outpatient provider and has never titrated. PT consult as still receiving outpatient PT. Explore possible [facility] hospital referral given need for longer term hospitalization. Inventory Assets Strengths: accepting of services, cooperative with unit routines Needs: improve coping skills, ongoing CM involvement in placement options Suicide Risk Level Suicide Risk Level: High-Moderate (q15 min suicide checks) (given severe depression with attempt prior to admission and with ongoing SI and mood lability but feels safe in the hospital, denies any plans for in the hospital and agrees to alert nursing if she feels unable to remain safe, SI worsens or plan or inten or if she needs additional support) Risk Factors Assessment : Yes Do You Have Access To A Gun?: No Health Problems: Yes Mental Health Diagnoses: Yes Substance Use Disorders: No Previous Psychiatric Hospitalization: Yes Protective Factors Assessment Stable Relationships: Yes Interval History Identifying Information BAUTISTA ALLRED is a 21-year-old F who currently lives in [place], has a history of several inpatient stays on 3 S (most recently 07/24), and was admitted on 07/21/22 18:29 on a 201 voluntary commitment s/p medical admission for suicide attempt by OD. Chief Complaint "I'm not good, I'm really panicky". Review of Systems Sleep Information Total Hours of Sleep: 6 Sleep Comments: Pt up to day room once, but returned to room when asked. Meal Information Percent Meal Consumed - Breakfast: 100 Percent Meal Consumed - Lunch: 100 Percent Meal Consumed - Dinner: 90 Subjective Subjective Patient was seen & assessed and interval progress reviewed with treatment team nursing and social work. More frustrated last night. isolative to her room requesting time to rest this morning. This afternoon endorsing increased depression, SI and tearful. With encouragement can state maybe feeling increased distress due to thinking about the suicide attempt and feels guilt that she did this. Low self-esteem/self-worth impacting mood and she thinks contribution from her period which started yesterday as she feels her hormones are "all over". Endorses some double vision which started when she felt anxious and tearful and resolved quickly. No dizziness, LOUIS, gait changes. Agrees to listen to music and do some coloring to help herself feel better. Physical Exam Psychiatric Orientation: alert and oriented x 3 Apperance: appropriately dressed and appropriately groomed Eye Contact: good eye contact Motor Behavior: no abnormal motor movements Speech: normal rate/rhythm/volume of speech Affect: + depressed affect, + tearful affect and + labile affect Mood: + depressed mood, + anxious mood and + irritable mood Thought Process: + circumstantial thought process and + concrete thought process Thought Content: reality based without delusions Suicidal Thoughts: denies suicidal plan (none for the hospital ) and denies suicidal intent; + reports suicidal thoughts (intermittent, come on quickly and intensely going right to hopelessness) Homicidal Thoughts: denies homicidal thoughts Hallucinations: no auditory hallucinations and no visual hallucinations Cognition: attention grossly intact and language grossly intact Estimated Intelligence: consistent with education level Insight: + limited insight Judgement: + limited judgement Vital Signs (Past 24 Hours) Last Vital Signs Temp 36.4 C L 08/02/22 06:39 Pulse 102 H 08/02/22 06:41 Resp 18 08/02/22 06:39 BP 101/70 08/02/22 06:41 Pulse Ox 99 07/29/22 06:20 O2 Del Method 07/29/22 06:20 Results & Data ([facility]) Current Inpatient Medications Current Inpatient Medications: Current Inpatient Medications Acetaminophen (Acetaminophen 325 Mg Tab) 650 mg PO Q4H PRN PRN Reason: Headache or Minor Fever Stop: 08/20/22 18:18 Last Admin: 07/31/22 20:48 Dose: 650 mg Al Hydrox/Mg Hydrox/Simethicone (Aluminum/Magnesium Susp 30 Ml Udc) 30 ml PO Q4H PRN PRN Reason: GI Upset Stop: 08/20/22 18:18 Last Admin: 07/27/22 14:20 Dose: 30 ml Aripiprazole (Aripiprazole 10 Mg Tab) 20 mg PO QAM [facility] Stop: 08/30/22 08:59 Last Admin: 08/02/22 08:40 Dose: 20 mg Bismuth Subsalicylate (Bismuth Subsalicylate Liqd 236 Ml) 15 ml PO PRN PRN PRN Reason: Loose Stool Stop: 08/20/22 18:18 Last Admin: 07/31/22 13:35 Dose: 15 ml Buspirone HCl (Buspirone 5 Mg Tab) 5 mg PO TID PRN PRN Reason: Anxiety/Agitation Stop: 08/27/22 13:59 Last Admin: 08/01/22 21:52 Dose: 5 mg Clonazepam (Clonazepam 0.25 Mg Tab) 0.25 mg PO BID [facility] Stop: 08/24/22 20:59 Last Admin: 08/02/22 08:40 Dose: 0.25 mg Lamotrigine (Lamotrigine 25 Mg Tab) 25 mg PO HS [facility] Stop: 08/21/22 21:59 Last Admin: 08/01/22 21:51 Dose: 25 mg Magnesium Hydroxide (Magnesium Hydroxide Susp 30 Ml Udc) 30 ml PO DAILY PRN PRN Reason: Constipation Stop: 08/20/22 18:18 Multi-Ingredient Cream (Eucerin Cr 120 Gm Jar) 1 appln EXT DAILY PRN PRN Reason: dry skin over knee Stop: 08/29/22 12:40 Last Admin: 08/01/22 18:36 Dose: 1 appln Ondansetron HCl (Ondansetron 4 Mg Od Tab) 4 mg PO Q6H PRN PRN Reason: Nausea Stop: 08/22/22 09:31 Last Admin: 07/25/22 06:28 Dose: 4 mg Pantoprazole Sodium (Pantoprazole 40 Mg Tab) 40 mg PO BID [facility] Stop: 08/21/22 11:44 Last Admin: 08/02/22 08:40 Dose: 40 mg Sodium Chloride (Sodium Chloride 0.65% Na Soln 45 Ml ([place])) 1 - 2 sprays NA PRN PRN PRN Reason: Nasal Dryness/Congestion Stop: 08/20/22 18:18 Mental Health & Subst Abuse Tx Therapist Name of Therapist: Hubert Martinez Lead Ramp Service Man Name of Lead Ramp Service Man: DANIE Watkins Post Discharge Appointments Primary Care Physician Name Of Family Doctor/PCP: Hubert Mcpherson
[2022-08-02] MEDS: lamoTRIgine 25 MG TAB PO SCH (22:00)
[2022-08-03] MEDS: PANTOprazole 40 MG TAB PO SCH ×2 (09:02→21:25)
[2022-08-03] MEDS: ARIPiprazole 10 MG TAB PO SCH (09:02)
[2022-08-03] MEDS: clonazePAM 0.25 MG TAB PO SCH ×2 (09:03→21:25)
--- NOTE | 2022-08-03 11:12 | Psychiatric Progress Note ---
Date of Service August 03, 2022 Impression / Recommendations Impression 21 yo female with a history of mood dysregulation, complex trauma hx, worsening depression on transition to living independently as an adult, limited coping skills tested by ACL repair. Diagnostically consistent with recurrent MDD in context of limited coping skills and social isolation and increasingly presents with likely cluster B traits/BPD given chronicity of her SI and very limited coping skills for emotional distress/self-harm urges. MNPR due to social skills, knee recovery, limited distress tolerance 08/03/2022: Ongoing mood lability with poor insight into factors leading to suicide attempt and difficulty utilizing coping skills. Remains labile, laughing with peers last evening then a few minutes later reported episode of self-harm due to psychic distress. Continues to report somatic symptoms variably which come and go abruptly and she often declines medications for which seem to be directly related to her level of anxiety and availability of providers for 1-on-1 attention. Isolative and flat today consistent with worsened depression. Tolerating higher dose of abilify,will delay dose of abilify MORELOS given her limited interaction today and increased somatic complaints last evening. Consider tomorrow. (1) Post traumatic stress disorder (PTSD): (2) Intentional overdose: (3) QT prolongation: (4) S/P ACL reconstruction: (5) MDD (major depressive disorder), recurrent episode, severe: (6) Intellectual disability: Plan 08/03/2022: Continue current medications and tx plan. Option for abilify MORELOS t omorrow if she is interested. 08/02/22: Ongoing insight-oriented approach. Continue current medications and tx plan. 08/01/22: Continue with current medications and tx plan. 07/31/22: Continue with current medications and tx plan. EKG tomorrow to reassess QTc. 07/30/22: Increase abilify to 20mg qd. 07/29/22: Continue with current medications and tx plan. 07/28/22: Increase abilify to 15mg tomorrow morning 07/27/22: Continue with current medications and tx plan. 07/26/22: titrate Abilify to 10 mg starting tomorrow 07/25/22: continue daily ekGs to titrate Abilify to 20 mg in intervals. Monitor sedation on Klonopin, gait is steady, will move 2nd dose to hs. CXR for TB clearance for anticipated state hospital referral. 07/24/22: risks/benefits/alternatives reviewed re: Klonopin trial given random breakthrough anxiety. Discussed resuming Abilify oral dosing so can adjust/monitor QTc. Daily EKG ordered. patient agreeable and will start Abilify 5 mg daily today and Klonopin 0.25 mg po BID. She is ambulating well without her brace. consult PT for final exercises. 07/23/22: d/c Buspar as may be having residual serotonergic sensitivity, daily EKG per hospitalist recommendation, repeat labs unremarkable, vitals stable. Zofran prn. Hold Abilify maintenna due to day given QTc. 07/22/22: The patient was [facility] ([facility] mental health unit) on q15 min checks (behavioral with suicide precautions) for safety. The patient will participate in group, recreational, and milieu therapies and will be offered additional individual and family sessions as clinically appropriate. Restarted Buspar on medical floor, repeat EKG in am to determine appropriateness of Abilify maintenna that is due. Hold Zyprexa. She is aware that would not recommend resume Vistaril or Lexapro. Will offer Buspar 5 mg TID prn as well as frequently requests prn and want to avoid benzos. Restart lamictal as plan of outpatient provider and has never titrated. PT consult as still receiving outpatient PT. Explore possible state hospital referral given need for longer term hospitalization. Inventory Assets Strengths: accepting of services, cooperative with unit routines Needs: improve coping skills, ongoing CM involvement in placement options Suicide Risk Level Suicide Risk Level: High-Moderate (q15 min suicide checks) (given severe depression with attempt prior to admission and with ongoing SI, self-harm and mood lability but feels safe in the hospital, denies any plans for in the hospital and agrees to alert nursing if she feels unable to remain safe, SI worsens or plan or inten or if she needs additional support) Risk Factors Assessment : Yes Do You Have Access To A Gun?: No Health Problems: Yes Mental Health Diagnoses: Yes Substance Use Disorders: No Previous Psychiatric Hospitalization: Yes Protective Factors Assessment Stable Relationships: Yes Interval History Identifying Information BAUTISTA ALLRED is a 21-year-old F who currently lives in [place], has a history of several inpatient stays on 3 S (most recently 07/24), and was admitted on 07/21/22 18:29 on a 201 voluntary commitment s/p medical admission for suicide attempt by OD. Chief Complaint "Mhm". Review of Systems Sleep Information Total Hours of Sleep: 6.5 Sleep Comments: Pt up to day room once, but returned to room when asked. Meal Information Percent Meal Consumed - Breakfast: 100 Percent Meal Consumed - Lunch: 100 Percent Meal Consumed - Dinner: 90 Subjective Subjective Patient was seen & assessed and interval progress reviewed with treatment team nursing and social work. Had difficult evening, self-harmed via scratching her neck and then told nurses. Continues to deny this was due to SI but rather reiterates to me this was for self-harm as she felt distressed and overwhelmed by her emotions. Having SI today but feels able to remain safe and agrees to let nursing know if she has urges for self-harm. Lying in bed, isolative and declining to attend groups. Cannot speak to why she feels depressed today. Was able to talk briefly about her stuffed animal turtle, [place], but otherwise less interactive and flat compared to usual. Denies any physical complaints other than menstrual cramps. Discussed option to request pain medications to help with this and found heating pad somewhat helpful. Denies any new side effects from abilify. At times reporting brief chest pain or LOUIS to nurses but this symptoms resolve quickly and seem correlated to her anxiety. Denies any current CP, SOB, palpitations, diaphoresis. Denies any further vision changes today. Physical Exam Psychiatric Orientation: alert and oriented x 3 Apperance: appropriately dressed and appropriately groomed Eye Contact: good eye contact Motor Behavior: no abnormal motor movements Speech: normal rate/rhythm/volume of speech Affect: + depressed affect, + flat affect, + labile affect and + irritable affect Mood: + depressed mood, + anxious mood and + irritable mood Thought Process: + circumstantial thought process (sparse) and + concrete thought process Thought Content: reality based without delusions Suicidal Thoughts: denies suicidal plan (none for the hospital ) and denies suicidal intent; + reports suicidal thoughts (intermittent, come on quickly and intensely going right to hopelessness ) Homicidal Thoughts: denies homicidal thoughts Hallucinations: no auditory hallucinations and no visual hallucinations Cognition: attention grossly intact and language grossly intact Estimated Intelligence: consistent with education level Insight: + limited insight Judgement: + limited judgement Vital Signs (Past 24 Hours) Last Vital Signs Temp 36.8 C 08/03/22 06:38 Pulse 90 08/03/22 06:38 Resp 16 08/03/22 06:38 BP 95/62 L 08/03/22 06:38 Pulse Ox 99 07/29/22 06:20 O2 Del Method 07/29/22 06:20 Results & Data ([facility]) Current Inpatient Medications Current Inpatient Medications: Current Inpatient Medications Acetaminophen (Acetaminophen 325 Mg Tab) 650 mg PO Q4H PRN PRN Reason: Headache or Minor Fever Stop: 08/20/22 18:18 Last Admin: 07/31/22 20:48 Dose: 650 mg Al Hydrox/Mg Hydrox/Simethicone (Aluminum/Magnesium Susp 30 Ml Udc) 30 ml PO Q4H PRN PRN Reason: GI Upset Stop: 08/20/22 18:18 Last Admin: 07/27/22 14:20 Dose: 30 ml Aripiprazole (Aripiprazole 10 Mg Tab) 20 mg PO QAM [facility] Stop: 08/30/22 08:59 Last Admin: 08/03/22 09:02 Dose: 20 mg Bismuth Subsalicylate (Bismuth Subsalicylate Liqd 236 Ml) 15 ml PO PRN PRN PRN Reason: Loose Stool Stop: 08/20/22 18:18 Last Admin: 07/31/22 13:35 Dose: 15 ml Buspirone HCl (Buspirone 5 Mg Tab) 5 mg PO TID PRN PRN Reason: Anxiety/Agitation Stop: 08/27/22 13:59 Last Admin: 08/01/22 21:52 Dose: 5 mg Clonazepam (Clonazepam 0.25 Mg Tab) 0.25 mg PO BID [facility] Stop: 08/24/22 20:59 Last Admin: 08/03/22 09:03 Dose: 0.25 mg Lamotrigine (Lamotrigine 25 Mg Tab) 25 mg PO HS [facility] Stop: 08/21/22 21:59 Last Admin: 08/02/22 22:00 Dose: 25 mg Magnesium Hydroxide (Magnesium Hydroxide Susp 30 Ml Udc) 30 ml PO DAILY PRN PRN Reason: Constipation Stop: 08/20/22 18:18 Multi-Ingredient Cream (Eucerin Cr 120 Gm Jar) 1 appln EXT DAILY PRN PRN Reason: dry skin over knee Stop: 08/29/22 12:40 Last Admin: 08/01/22 18:36 Dose: 1 appln Ondansetron HCl (Ondansetron 4 Mg Od Tab) 4 mg PO Q6H PRN PRN Reason: Nausea Stop: 08/22/22 09:31 Last Admin: 07/25/22 06:28 Dose: 4 mg Pantoprazole Sodium (Pantoprazole 40 Mg Tab) 40 mg PO BID [facility] Stop: 08/21/22 11:44 Last Admin: 08/03/22 09:02 Dose: 40 mg Sodium Chloride (Sodium Chloride 0.65% Na Soln 45 Ml ([place])) 1 - 2 sprays NA PRN PRN PRN Reason: Nasal Dryness/Congestion Stop: 08/20/22 18:18 Mental Health & Subst Abuse Tx Therapist Name of Therapist: Hubert Martinez Photo Technologist Name of Photo Technologist: DANIE Watkins Post Discharge Appointments Primary Care Physician Name Of Family Doctor/PCP: Hubert Mcpherson
[2022-08-03] MEDS: lamoTRIgine 25 MG TAB PO SCH (21:25)
[2022-08-04] MEDS: ARIPiprazole 10 MG TAB PO SCH (08:35)
[2022-08-04] MEDS: PANTOprazole 40 MG TAB PO SCH ×2 (08:36→20:44)
[2022-08-04] MEDS: clonazePAM 0.25 MG TAB PO SCH ×2 (08:36→20:43)
[2022-08-04] MEDS ORDERED: ARIPiprazole 400 MG PRE-FILLED SYRINGE IM SCH (11:30)
--- NOTE | 2022-08-04 12:54 | Psychiatric Progress Note ---
Date of Service August 04, 2022 Impression / Recommendations Impression 21 yo female with a history of mood dysregulation, complex trauma hx, worsening depression on transition to living independently as an adult, limited coping skills tested by ACL repair. Diagnostically consistent with recurrent MDD in context of limited coping skills and social isolation and increasingly presents with likely cluster B traits/BPD given chronicity of her SI and very limited coping skills for emotional distress/self-harm urges. MNPR due to social skills, knee recovery, limited distress tolerance 08/04/2022: tolerating Abilify, will give maintenna today and not continue PO crossover as was not a new Abilify maintenna start. (1) Post traumatic stress disorder (PTSD): (2) Intentional overdose: (3) QT prolongation: (4) S/P ACL reconstruction: (5) MDD (major depressive disorder), recurrent episode, severe: (6) Intellectual disability: Plan 08/04/2022: Abilify maintenna today, awaiting addition input from CM on diversion 08/03/2022: Continue current medications and tx plan. Option for abilify MORELOS tomorrow if she is interested. 08/02/22: Ongoing insight-oriented approach. Continue current medications and tx plan. 08/01/22: Continue with current medications and tx plan. 07/31/22: Continue with current medications and tx plan. EKG tomorrow to reassess QTc. 07/30/22: Increase abilify to 20mg qd. 07/29/22: Continue with current medications and tx plan. 07/28/22: Increase abilify to 15mg tomorrow morning 07/27/22: Continue with current medications and tx plan. 07/26/22: titrate Abilify to 10 mg starting tomorrow 07/25/22: continue daily ekGs to titrate Abilify to 20 mg in intervals. Monitor sedation on Klonopin, gait is steady, will move 2nd dose to hs. CXR for TB clearance for anticipated [facility] referral. 07/24/22: risks/benefits/alternatives reviewed re: Klonopin trial given random breakthrough anxiety. Discussed resuming Abilify oral dosing so can adjust/monitor QTc. Daily EKG ordered. patient agreeable and will start Abilify 5 mg daily today and Klonopin 0.25 mg po BID. She is ambulating well without her brace. consult PT for final exercises. 07/23/22: d/c Buspar as may be having residual serotonergic sensitivity, daily EKG per hospitalist recommendation, repeat labs unremarkable, vitals stable. Zofran prn. Hold Abilify maintenna due to day given QTc. 07/22/22: The patient was admitted to the [facility] ([facility] mental health unit) on q15 min checks (behavioral with suicide precautions) for safety. The patient will participate in group, recreational, and milieu therapies and will be offered additional individual and family sessions as clinically appropriate. Restarted Buspar on medical floor, repeat EKG in am to determine appropriateness of Abilify maintenna that is due. Hold Zyprexa. She is aware that would not recommend resume Vistaril or Lexapro. Will offer Buspar 5 mg TID prn as well as frequently requests prn and want to avoid benzos. Restart lamictal as plan of outpatient provider and has never titrated. PT consult as still receiving outpatient PT. Explore possible [facility] referral given need for longer term hospitalization. Inventory Assets Strengths: accepting of services, cooperative with unit routines Needs: improve coping skills, ongoing CM involvement in placement options Suicide Risk Level Suicide Risk Level: Moderate (q15 min suicide checks) Risk Factors Assessment : Yes Do You Have Access To A Gun?: No Health Problems: Yes Mental Health Diagnoses: Yes Substance Use Disorders: No Previous Psychiatric Hospitalization: Yes Protective Factors Assessment Stable Relationships: Yes Interval History Identifying Information BAUTISTA ALLRED is a 21-year-old F who currently lives in [place], has a history of several inpatient stays on 3 S (most recently 07/24), and was admitted on 07/21/22 18:29 on a 201 voluntary commitment s/p medical admission for suicide attempt by OD. Chief Complaint "It's been rough but I understand". Review of Systems Sleep Information Total Hours of Sleep: 8.25 Sleep Comments: Pt up to day room once, but returned to room when asked. Meal Information Percent Meal Consumed - Breakfast: 100 Percent Meal Consumed - Lunch: 100 Percent Meal Consumed - Dinner: 100 Subjective Subjective Patient was seen & assessed and interval progress reviewed with treatment team. Interim care reviewed. Repeat EKGs show normalization of QTc. Patient is still requesting Abilify maintenna. Replaced by [facility], etc working on adaptive functioning scales to see if candidate for diversion options through an ID designation. Physical Exam Psychiatric Orientation: alert and oriented x 3 Apperance: appropriately dressed and appropriately groomed Eye Contact: good eye contact Motor Behavior: no abnormal motor movements Speech: normal rate/rhythm/volume of speech Affect: euthymic affect Mood: + depressed mood and + anxious mood Thought Process: + concrete thought process Thought Content: reality based without delusions Suicidal Thoughts: denies suicidal plan (none for the hospital ) and denies suicidal intent; + reports suicidal thoughts (intermittent, come on quickly and intensely going right to hopelessness ) Homicidal Thoughts: denies homicidal thoughts Hallucinations: no auditory hallucinations and no visual hallucinations Cognition: attention grossly intact and language grossly intact Estimated Intelligence: consistent with education level Insight: + limited insight Judgement: + limited judgement Vital Signs (Past 24 Hours) Last Vital Signs Temp 36.6 C 08/03/22 21:50 Pulse 90 08/03/22 06:38 Resp 16 08/03/22 06:38 BP 95/62 L 08/03/22 06:38 Pulse Ox 99 07/29/22 06:20 O2 Del Method 07/29/22 06:20 Results & Data ([facility]) Current Inpatient Medications Current Inpatient Medications: Current Inpatient Medications Acetaminophen (Acetaminophen 325 Mg Tab) 650 mg PO Q4H PRN PRN Reason: Headache or Minor Fever Stop: 08/20/22 18:18 Last Admin: 07/31/22 20:48 Dose: 650 mg Al Hydrox/Mg Hydrox/Simethicone (Aluminum/Magnesium Susp 30 Ml Udc) 30 ml PO Q4H PRN PRN Reason: GI Upset Stop: 08/20/22 18:18 Last Admin: 07/27/22 14:20 Dose: 30 ml Bismuth Subsalicylate (Bismuth Subsalicylate Liqd 236 Ml) 15 ml PO PRN PRN PRN Reason: Loose Stool Stop: 08/20/22 18:18 Last Admin: 07/31/22 13:35 Dose: 15 ml Buspirone HCl (Buspirone 5 Mg Tab) 5 mg PO TID PRN PRN Reason: Anxiety/Agitation Stop: 08/27/22 13:59 Last Admin: 12/30/22 21:52 Dose: 5 mg Clonazepam (Clonazepam 0.25 Mg Tab) 0.25 mg PO BID IFEOMA Stop: 08/24/22 20:59 Last Admin: 08/04/22 08:36 Dose: 0.25 mg Lamotrigine (Lamotrigine 25 Mg Tab) 25 mg PO HS [facility] Stop: 08/21/22 21:59 Last Admin: 08/03/22 21:25 Dose: 25 mg Magnesium Hydroxide (Magnesium Hydroxide Susp 30 Ml Udc) 30 ml PO DAILY PRN PRN Reason: Constipation Stop: 08/20/22 18:18 Multi-Ingredient Cream (Eucerin Cr 120 Gm Jar) 1 appln EXT DAILY PRN PRN Reason: dry skin over knee Stop: 08/29/22 12:40 Last Admin: 08/01/22 18:36 Dose: 1 appln Ondansetron HCl (Ondansetron 4 Mg Od Tab) 4 mg PO Q6H PRN PRN Reason: Nausea Stop: 08/22/22 09:31 Last Admin: 07/25/22 06:28 Dose: 4 mg Pantoprazole Sodium (Pantoprazole 40 Mg Tab) 40 mg PO BID IFEOMA Stop: 08/21/22 11:44 Last Admin: 08/04/22 08:36 Dose: 40 mg Sodium Chloride (Sodium Chloride 0.65% Na Soln 45 Ml ([place])) 1 - 2 sprays NA PRN PRN PRN Reason: Nasal Dryness/Congestion Stop: 08/20/22 18:18 Mental Health & Subst Abuse Tx Therapist Name of Therapist: Hubert Martinez Community Fundraiser Name of Community Fundraiser: DANIE Watkins Post Discharge Appointments Primary Care Physician Name Of Family Doctor/PCP: Hubert Mcpherson
[2022-08-04] MEDS: busPIRone 5 MG TAB PO PRN (13:14)
[2022-08-04] MEDS: lamoTRIgine 25 MG TAB PO SCH (20:44)
[2022-08-05] MEDS: PANTOprazole 40 MG TAB PO SCH ×2 (08:47→20:44)
[2022-08-05] MEDS: clonazePAM 0.25 MG TAB PO SCH ×2 (08:47→20:44)
--- NOTE | 2022-08-05 11:32 | Psychiatric Progress Note ---
Date of Service August 05, 2022 Impression / Recommendations Impression 21 yo female with a history of mood dysregulation, complex trauma hx, worsening depression on transition to living independently as an adult, limited coping skills tested by ACL repair. Diagnostically consistent with recurrent MDD in context of limited coping skills and social isolation and increasingly presents with likely cluster B traits/BPD given chronicity of her SI and very limited coping skills for emotional distress/self-harm urges. MNPR due to social skills, knee recovery, limited distress tolerance 08/05/2022: stabilized in structured milieu. Plan: continue current meds and tx plan. (1) Post traumatic stress disorder (PTSD): (2) Intentional overdose: (3) QT prolongation: (4) S/P ACL reconstruction: (5) MDD (major depressive disorder), recurrent episode, severe: (6) Intellectual disability: Inventory Assets Strengths: accepting of services, cooperative with unit routines Needs: improve coping skills, ongoing CM involvement in placement options Suicide Risk Level Suicide Risk Level: Moderate (q15 min suicide checks) Risk Factors Assessment : Yes Do You Have Access To A Gun?: No Health Problems: Yes Mental Health Diagnoses: Yes Substance Use Disorders: No Previous Psychiatric Hospitalization: Yes Protective Factors Assessment Stable Relationships: Yes Interval History Identifying Information BAUTISTA ALLRED is a 21-year-old F who currently lives in [place], has a history of several inpatient stays on 3 S (most recently 07/24), and was admitted on 07/21/22 18:29 on a 201 voluntary commitment s/p medical admission for suicide attempt by OD. Chief Complaint "I like your backpack, I enjoyed the football game". Review of Systems Sleep Information Total Hours of Sleep: 7 Sleep Comments: Pt not observed awake until 0600. Meal Information Percent Meal Consumed - Breakfast: 100 Percent Meal Consumed - Lunch: 100 Percent Meal Consumed - Dinner: 10 Subjective Subjective Patient was seen & assessed and interval progress reviewed with nursing and social work. Remains somatic but more redirectible. excited with subjective tachy after [place] win but responded readily to reassurance, otherwise asymptomatic. Tolerated Abilify maintenna injection 08/04/22. Physical Exam Psychiatric Orientation: alert and oriented x 3 Apperance: appropriately dressed and appropriately groomed Eye Contact: good eye contact Motor Behavior: no abnormal motor movements Speech: normal rate/rhythm/volume of speech Affect: euthymic affect Mood: + depressed mood Thought Process: + concrete thought process Thought Content: reality based without delusions Suicidal Thoughts: denies suicidal thoughts Homicidal Thoughts: denies homicidal thoughts Hallucinations: no auditory hallucinations and no visual hallucinations Cognition: attention grossly intact and language grossly intact Insight: + limited insight Judgement: + limited judgement Vital Signs (Past 24 Hours) Last Vital Signs Temp 36.3 C L 08/05/22 06:00 Pulse 94 H 08/05/22 06:41 Resp 18 08/05/22 06:00 BP 116/85 08/05/22 06:41 Pulse Ox 99 07/29/22 06:20 O2 Del Method 08/05/22 06:00 Results & Data ([facility]) Current Inpatient Medications Current Inpatient Medications: Current Inpatient Medications Acetaminophen (Acetaminophen 325 Mg Tab) 650 mg PO Q4H PRN PRN Reason: Headache or Minor Fever Stop: 08/20/22 18:18 Last Admin: 07/31/22 20:48 Dose: 650 mg Al Hydrox/Mg Hydrox/Simethicone (Aluminum/Magnesium Susp 30 Ml Udc) 30 ml PO Q4H PRN PRN Reason: GI Upset Stop: 08/20/22 18:18 Last Admin: 07/27/22 14:20 Dose: 30 ml Bismuth Subsalicylate (Bismuth Subsalicylate Liqd 236 Ml) 15 ml PO PRN PRN PRN Reason: Loose Stool Stop: 08/20/22 18:18 Last Admin: 07/31/22 13:35 Dose: 15 ml Buspirone HCl (Buspirone 5 Mg Tab) 5 mg PO TID PRN PRN Reason: Anxiety/Agitation Stop: 08/27/22 13:59 Last Admin: 08/04/22 13:14 Dose: 5 mg Clonazepam (Clonazepam 0.25 Mg Tab) 0.25 mg PO BID IFEOMA Stop: 08/24/22 20:59 Last Admin: 08/05/22 08:47 Dose: 0.25 mg Lamotrigine (Lamotrigine 25 Mg Tab) 25 mg PO HS IFEOMA Stop: 08/21/22 21:59 Last Admin: 08/04/22 20:44 Dose: 25 mg Magnesium Hydroxide (Magnesium Hydroxide Susp 30 Ml Udc) 30 ml PO DAILY PRN PRN Reason: Constipation Stop: 08/20/22 18:18 Multi-Ingredient Cream (Eucerin Cr 120 Gm Jar) 1 appln EXT DAILY PRN PRN Reason: dry skin over knee Stop: 08/29/22 12:40 Last Admin: 08/01/22 18:36 Dose: 1 appln Ondansetron HCl (Ondansetron 4 Mg Od Tab) 4 mg PO Q6H PRN PRN Reason: Nausea Stop: 08/22/22 09:31 Last Admin: 07/25/22 06:28 Dose: 4 mg Pantoprazole Sodium (Pantoprazole 40 Mg Tab) 40 mg PO BID IFEOMA Stop: 08/21/22 11:44 Last Admin: 08/05/22 08:47 Dose: 40 mg Sodium Chloride (Sodium Chloride 0.65% Na Soln 45 Ml ([place])) 1 - 2 sprays NA PRN PRN PRN Reason: Nasal Dryness/Congestion Stop: 08/20/22 18:18 Mental Health & Subst Abuse Tx Therapist Name of Therapist: Hubert Martinez Technical Business Systems Analyst Name of Technical Business Systems Analyst: DANIE Watkins Post Discharge Appointments Primary Care Physician Name Of Family Doctor/PCP: Hubert Mcpherson Specialist Name of Specialist: [facility] - Dr. Avila Phone Number for Specialist: Date of Appointment with Specialist: 09/05/22 Time of Appointment with Specialist: 3:40 PM Specialty Appointment Comment: [address]; [address], [place], [place]
[2022-08-05] MEDS: busPIRone 5 MG TAB PO PRN (19:12)
[2022-08-05] MEDS: lamoTRIgine 25 MG TAB PO SCH (20:44)
[2022-08-06] MEDS: clonazePAM 0.25 MG TAB PO SCH ×2 (08:32→20:39)
[2022-08-06] MEDS: PANTOprazole 40 MG TAB PO SCH ×2 (08:33→20:39)
--- NOTE | 2022-08-06 11:38 | Psychiatric Progress Note ---
Date of Service August 06, 2022 Impression / Recommendations Impression 21 yo female with a history of mood dysregulation, complex trauma hx, worsening depression on transition to living independently as an adult, limited coping skills tested by ACL repair. Diagnostically consistent with recurrent MDD in context of limited coping skills and social isolation and increasingly presents with likely cluster B traits/BPD given chronicity of her SI and very limited coping skills for emotional distress/self-harm urges. MNPR due to social skills, knee recovery, limited distress tolerance 08/06/2022: improving Plan: continue current meds and tx plan. (1) Post traumatic stress disorder (PTSD): (2) S/P ACL reconstruction: (3) MDD (major depressive disorder), recurrent episode, severe: (4) Intellectual disability: Inventory Assets Strengths: accepting of services, cooperative with unit routines Needs: improve coping skills, ongoing CM involvement in placement options Suicide Risk Level Suicide Risk Level: Moderate (q15 min suicide checks) Risk Factors Assessment : Yes Do You Have Access To A Gun?: No Health Problems: Yes Mental Health Diagnoses: Yes Substance Use Disorders: No Previous Psychiatric Hospitalization: Yes Protective Factors Assessment Stable Relationships: Yes Interval History Identifying Information BAUTISTA ALLRED is a 21-year-old F who currently lives in [place], has a history of several inpatient stays on 3 S (most recently 07/24), and was admitted on 07/21/22 18:29 on a 201 voluntary commitment s/p medical admission for suicide attempt by OD. Chief Complaint "I feel pretty positive". Review of Systems Sleep Information Total Hours of Sleep: 7.25 Sleep Comments: Pt not observed awake until 0600. Meal Information Percent Meal Consumed - Breakfast: 100 Percent Meal Consumed - Lunch: 100 Percent Meal Consumed - Dinner: 100 Telehealth Telehealth Options: Telephone only For the duration of the visit, provider was performing the assessment from: A different facility than the patient After establishing a telemedicine visit, patient was: Patient/authorized rep acknowledged consent and understanding and Gave permission to continue telehealth session Total Time Spent (minutes): 7 Subjective Subjective Patient was seen & assessed and interval progress reviewed with [treatment team] [nursing and social work] Physical Exam Psychiatric Orientation: alert Speech: normal rate/rhythm/volume of speech Mood: + depressed mood Thought Process: goal directed thought process Thought Content: reality based without delusions Cognition: attention grossly intact and language grossly intact Vital Signs (Past 24 Hours) Last Vital Signs Temp 36.7 C 08/05/22 20:00 Pulse 94 H 08/05/22 06:41 Resp 18 08/05/22 06:00 BP 116/85 08/05/22 06:41 Pulse Ox 99 07/29/22 06:20 O2 Del Method 08/05/22 06:00 Results & Data ([facility]) Current Inpatient Medications Current Inpatient Medications: Current Inpatient Medications Acetaminophen (Acetaminophen 325 Mg Tab) 650 mg PO Q4H PRN PRN Reason: Headache or Minor Fever Stop: 08/20/22 18:18 Last Admin: 07/31/22 20:48 Dose: 650 mg Al Hydrox/Mg Hydrox/Simethicone (Aluminum/Magnesium Susp 30 Ml Udc) 30 ml PO Q4H PRN PRN Reason: GI Upset Stop: 08/20/22 18:18 Last Admin: 07/27/22 14:20 Dose: 30 ml Bismuth Subsalicylate (Bismuth Subsalicylate Liqd 236 Ml) 15 ml PO PRN PRN PRN Reason: Loose Stool Stop: 08/20/22 18:18 Last Admin: 07/31/22 13:35 Dose: 15 ml Buspirone HCl (Buspirone 5 Mg Tab) 5 mg PO TID PRN PRN Reason: Anxiety/Agitation Stop: 08/27/22 13:59 Last Admin: 08/05/22 19:12 Dose: 5 mg Clonazepam (Clonazepam 0.25 Mg Tab) 0.25 mg PO BID [facility] Stop: 08/24/22 20:59 Last Admin: 08/06/22 08:32 Dose: 0.25 mg Lamotrigine (Lamotrigine 25 Mg Tab) 25 mg PO HS IFEOMA Stop: 08/21/22 21:59 Last Admin: 08/05/22 20:44 Dose: 25 mg Magnesium Hydroxide (Magnesium Hydroxide Susp 30 Ml Udc) 30 ml PO DAILY PRN PRN Reason: Constipation Stop: 08/20/22 18:18 Multi-Ingredient Cream (Eucerin Cr 120 Gm Jar) 1 appln EXT DAILY PRN PRN Reason: dry skin over knee Stop: 08/29/22 12:40 Last Admin: 08/01/22 18:36 Dose: 1 appln Ondansetron HCl (Ondansetron 4 Mg Od Tab) 4 mg PO Q6H PRN PRN Reason: Nausea Stop: 08/22/22 09:31 Last Admin: 07/25/22 06:28 Dose: 4 mg Pantoprazole Sodium (Pantoprazole 40 Mg Tab) 40 mg PO BID IFEOMA Stop: 08/21/22 11:44 Last Admin: 08/06/22 08:33 Dose: 40 mg Sodium Chloride (Sodium Chloride 0.65% Na Soln 45 Ml ([place])) 1 - 2 sprays NA PRN PRN PRN Reason: Nasal Dryness/Congestion Stop: 08/20/22 18:18 Mental Health & Subst Abuse Tx Therapist Name of Therapist: Hubert Martinez Vp Packaging Name of Vp Packaging: DANIE Watkins Post Discharge Appointments Primary Care Physician Name Of Family Doctor/PCP: Hubert Mcpherson Specialist Name of Specialist: [facility] - Dr. Avila Phone Number for Specialist: Date of Appointment with Specialist: 09/05/22 Time of Appointment with Specialist: 3:40 PM Specialty Appointment Comment: [address]; [address], [place], [place]
[2022-08-06] MEDS: busPIRone 5 MG TAB PO PRN (16:16)
[2022-08-06] MEDS: ALUMINUM/MAGNESIUM SUSP 30 ML UDC PO PRN (18:14)
[2022-08-06] MEDS: lamoTRIgine 25 MG TAB PO SCH (20:39)
[2022-08-07] MEDS: clonazePAM 0.25 MG TAB PO SCH ×2 (09:03→22:11)
[2022-08-07] MEDS: PANTOprazole 40 MG TAB PO SCH ×2 (09:03→22:12)
--- NOTE | 2022-08-07 12:05 | Psychiatric Progress Note ---
Date of Service August 07, 2022 Impression / Recommendations Impression 21 yo female with a history of mood dysregulation, complex trauma hx, worsening depression on transition to living independently as an adult, limited coping skills tested by ACL repair. Diagnostically consistent with recurrent MDD in context of limited coping skills and social isolation and increasingly presents with likely cluster B traits/BPD given chronicity of her SI and very limited coping skills for emotional distress/self-harm urges. MNPR due to social skills, knee recovery, limited distress tolerance 08/07/2022: variable response to interventions (1) Post traumatic stress disorder (PTSD): (2) S/P ACL reconstruction: (3) MDD (major depressive disorder), recurrent episode, severe: (4) Intellectual disability: Plan 08/07/2022: titrate lamictal 08/04/2022: Abilify maintenna today, awaiting addition input from CM on diversion 08/03/2022: Continue current medications and tx plan. Option for abilify MORELOS tomorrow if she is interested. 08/02/22: Ongoing insight-oriented approach. Continue current medications and tx plan. 08/01/22: Continue with current medications and tx plan. 07/31/22: Continue with current medications and tx plan. EKG tomorrow to reassess QTc. 07/30/22: Increase abilify to 20mg qd. 07/29/22: Continue with current medications and tx plan. 07/28/22: Increase abilify to 15mg tomorrow morning 07/27/22: Continue with current medications and tx plan. 07/26/22: titrate Abilify to 10 mg starting tomorrow 07/25/22: continue daily ekGs to titrate Abilify to 20 mg in intervals. Monitor sedation on Klonopin, gait is steady, will move 2nd dose to hs. CXR for TB clearance for anticipated [facility] hospital referral. 07/24/22: risks/benefits/alternatives reviewed re: Klonopin trial given random breakthrough anxiety. Discussed resuming Abilify oral dosing so can adjust/monitor QTc. Daily EKG ordered. patient agreeable and will start Abilify 5 mg daily today and Klonopin 0.25 mg po BID. She is ambulating well without her brace. consult PT for final exercises. 07/23/22: d/c Buspar as may be having residual serotonergic sensitivity, daily EKG per hospitalist recommendation, repeat labs unremarkable, vitals stable. Zofran prn. Hold Abilify maintenna due to day given QTc. 07/22/22: The patient was admitted to [facility] ([facility]) on q15 min checks (behavioral with suicide precautions) for safety. The patient will participate in group, recreational, and milieu therapies and will be offered additional individual and family sessions as clinically appropriate. Restarted Buspar on medical floor, repeat EKG in am to determine appropriateness of Abilify maintenna that is due. Hold Zyprexa. She is aware that would not recommend resume Vistaril or Lexapro. Will offer Buspar 5 mg TID prn as well as frequently requests prn and want to avoid benzos. Restart lamictal as plan of outpatient provider and has never titrated. PT consult as still receiving outpatient PT. Explore possible state hospital referral given need for longer term hospitalization. Inventory Assets Strengths: accepting of services, cooperative with unit routines Needs: improve coping skills, ongoing CM involvement in placement options Suicide Risk Level Suicide Risk Level: Moderate (q15 min suicide checks) Risk Factors Assessment : Yes Do You Have Access To A Gun?: No Health Problems: Yes Mental Health Diagnoses: Yes Substance Use Disorders: No Previous Psychiatric Hospitalization: Yes Protective Factors Assessment Stable Relationships: Yes Interval History Identifying Information BAUTISTA ALLRED is a 21-year-old F who currently lives in [place], has a history of several inpatient stays on 3 S (most recently 07/24), and was admitted on 07/21/22 18:29 on a 201 voluntary commitment s/p medical admission for suicide attempt by OD. Chief Complaint requested nail and cooperative with nail care Review of Systems Sleep Information Total Hours of Sleep: 6 Meal Information Percent Meal Consumed - Breakfast: 100 Percent Meal Consumed - Lunch: 75 Percent Meal Consumed - Dinner: 90 Subjective Subjective Patient was seen & assessed and interval progress reviewed with nursing and social work. Attention seeking and somewhat emotionally labile in pms. Rated mood low in community meeting then laughing in lounge area soon after. Physical Exam Psychiatric Orientation: alert Eye Contact: good eye contact Motor Behavior: no abnormal motor movements Speech: normal rate/rhythm/volume of speech Affect: + depressed affect Mood: + depressed mood Thought Process: + concrete thought process Thought Content: reality based without delusions Suicidal Thoughts: denies suicidal thoughts Homicidal Thoughts: denies homicidal thoughts Hallucinations: no auditory hallucinations and no visual hallucinations Cognition: attention grossly intact and language grossly intact Estimated Intelligence: consistent with education level Insight: + limited insight Judgement: + limited judgement Vital Signs (Past 24 Hours) Last Vital Signs Temp 36.3 C L 08/07/22 06:00 Pulse 84 08/07/22 06:00 Resp 16 08/07/22 06:00 BP 108/78 08/07/22 06:37 Pulse Ox 99 07/29/22 06:20 O2 Del Method 08/07/22 06:00 Results & Data ([facility]) Current Inpatient Medications Current Inpatient Medications: Current Inpatient Medications Acetaminophen (Acetaminophen 325 Mg Tab) 650 mg PO Q4H PRN PRN Reason: Headache or Minor Fever Stop: 08/20/22 18:18 Last Admin: 07/31/22 20:48 Dose: 650 mg Al Hydrox/Mg Hydrox/Simethicone (Aluminum/Magnesium Susp 30 Ml Udc) 30 ml PO Q4H PRN PRN Reason: GI Upset Stop: 08/20/22 18:18 Last Admin: 08/06/22 18:14 Dose: 30 ml Bismuth Subsalicylate (Bismuth Subsalicylate Liqd 236 Ml) 15 ml PO PRN PRN PRN Reason: Loose Stool Stop: 08/20/22 18:18 Last Admin: 07/31/22 13:35 Dose: 15 ml Buspirone HCl (Buspirone 5 Mg Tab) 5 mg PO TID PRN PRN Reason: Anxiety/Agitation Stop: 08/27/22 13:59 Last Admin: 08/06/22 16:16 Dose: 5 mg Clonazepam (Clonazepam 0.25 Mg Tab) 0.25 mg PO BID [facility] Stop: 08/24/22 20:59 Last Admin: 08/07/22 09:03 Dose: 0.25 mg Lamotrigine (Lamotrigine 25 Mg Tab) 50 mg PO HS [facility] Stop: 09/06/22 21:59 Magnesium Hydroxide (Magnesium Hydroxide Susp 30 Ml Udc) 30 ml PO DAILY PRN PRN Reason: Constipation Stop: 08/20/22 18:18 Multi-Ingredient Cream (Eucerin Cr 120 Gm Jar) 1 appln EXT DAILY PRN PRN Reason: dry skin over knee Stop: 08/29/22 12:40 Last Admin: 08/01/22 18:36 Dose: 1 appln Ondansetron HCl (Ondansetron 4 Mg Od Tab) 4 mg PO Q6H PRN PRN Reason: Nausea Stop: 08/22/22 09:31 Last Admin: 07/25/22 06:28 Dose: 4 mg Pantoprazole Sodium (Pantoprazole 40 Mg Tab) 40 mg PO BID [facility] Stop: 08/21/22 11:44 Last Admin: 08/07/22 09:03 Dose: 40 mg Sodium Chloride (Sodium Chloride 0.65% Na Soln 45 Ml ([place])) 1 - 2 sprays NA PRN PRN PRN Reason: Nasal Dryness/Congestion Stop: 08/20/22 18:18 Mental Health & Subst Abuse Tx Therapist Name of Therapist: Hubert Martinez Cleaner Wall Name of Cleaner Wall: DANIE Watkins Post Discharge Appointments Primary Care Physician Name Of Family Doctor/PCP: Hubert Mcpherson Specialist Name of Specialist: [facility] - Dr. Avila Phone Number for Specialist: Date of Appointment with Specialist: 09/05/22 Time of Appointment with Specialist: 3:40 PM Specialty Appointment Comment: [address]; [address], [place], [place]
[2022-08-07] MEDS: lamoTRIgine 25 MG TAB PO SCH (22:12)
[2022-08-08] MEDS: clonazePAM 0.25 MG TAB PO SCH ×2 (09:27→20:58)
[2022-08-08] MEDS: PANTOprazole 40 MG TAB PO SCH ×2 (09:27→20:57)
--- NOTE | 2022-08-08 16:36 | Psychiatric Progress Note ---
Date of Service August 08, 2022 Impression / Recommendations Impression 21 yo female with a history of mood dysregulation, complex trauma hx, worsening depression on transition to living independently as an adult, limited coping skills tested by ACL repair. Diagnostically consistent with recurrent MDD in context of limited coping skills and social isolation and increasingly presents with likely cluster B traits/BPD given chronicity of her SI and very limited coping skills for emotional distress/self-harm urges. MNPR due to social skills, knee recovery, limited distress tolerance 08/08/2022: reviewed interim progress per Dr. Call, continues to fluctuate in terms of mood, SI and engagement. Will re-attempt higher dose of lamictal tonight, she consents to this. (1) Post traumatic stress disorder (PTSD): (2) S/P ACL reconstruction: (3) MDD (major depressive disorder), recurrent episode, severe: (4) Intellectual disability: Plan 08/08/2022: Continue current medications and tx plan. 08/07/2022: titrate lamictal 08/04/2022: Abilify darryltenna today, awaiting addition input from CM on diversion 08/03/2022: Continue current medications and tx plan. Option for abilify MORELOS tomorrow if she is interested. 08/02/22: Ongoing insight-oriented approach. Continue current medications and tx plan. 08/01/22: Continue with current medications and tx plan. 07/31/22: Continue with current medications and tx plan. EKG tomorrow to reassess QTc. 07/30/22: Increase abilify to 20mg qd. 07/29/22: Continue with current medications and tx plan. 07/28/22: Increase abilify to 15mg tomorrow morning 07/27/22: Continue with current medications and tx plan. 07/26/22: titrate Abilify to 10 mg starting tomorrow 07/25/22: continue daily ekGs to titrate Abilify to 20 mg in intervals. Monitor sedation on Klonopin, gait is steady, will move 2nd dose to hs. CXR for TB clearance for anticipated [facility] hospital referral. 07/24/22: risks/benefits/alternatives reviewed re: Klonopin trial given random breakthrough anxiety. Discussed resuming Abilify oral dosing so can adjust/monitor QTc. Daily EKG ordered. patient agreeable and will start Abilify 5 mg daily today and Klonopin 0.25 mg po BID. She is ambulating well without her brace. consult PT for final exercises. 07/23/22: d/c Buspar as may be having residual serotonergic sensitivity, daily EKG per hospitalist recommendation, repeat labs unremarkable, vitals stable. Zofran prn. Hold Abilify maintenna due to day given QTc. 07/22/22: The patient was admitted to the [facility] ([facility] mental health unit) on q15 min checks (behavioral with suicide precautions) for safety. The patient will participate in group, recreational, and milieu therapies and will be offered additional individual and family sessions as clinically appropriate. Restarted Buspar on medical floor, repeat EKG in am to determine appropriateness of Abilify maintenna that is due. Hold Zyprexa. She is aware that would not recommend resume Vistaril or Lexapro. Will offer Buspar 5 mg TID prn as well as frequently requests prn and want to avoid benzos. Restart lamictal as plan of outpatient provider and has never titrated. PT consult as still receiving o utpatient PT. Explore possible state hospital referral given need for longer term hospitalization. Inventory Assets Strengths: accepting of services, cooperative with unit routines Needs: improve coping skills, ongoing CM involvement in placement options Suicide Risk Level Suicide Risk Level: High-Moderate (q15 min suicide checks) (labile mood with periods of depression and SI, able to safety contract that she will alert nursing if she feels unable to remain safe or develops SI with plan or intent) Risk Factors Assessment : Yes Do You Have Access To A Gun?: No Health Problems: Yes Mental Health Diagnoses: Yes Substance Use Disorders: No Previous Psychiatric Hospitalization: Yes Protective Factors Assessment Stable Relationships: Yes Interval History Identifying Information BAUTISTA ALLRED is a 21-year-old F who currently lives in [place], has a history of several inpatient stays on 3 S (most recently 07/24), and was admitted on 07/21/22 18:29 on a 201 voluntary commitment s/p medical admission for suicide attempt by OD. Chief Complaint "I feel depressed, I'm really sleepy". Review of Systems Sleep Information Total Hours of Sleep: 9.25 Sleep Comments: Pt not observed awake until 0600. Meal Information Percent Meal Consumed - Breakfast: 100 Percent Meal Consumed - Lunch: 100 Percent Meal Consumed - Dinner: 100 Subjective Subjective Patient was seen & assessed and interval progress reviewed with treatment team nursing and social work. Continues to fluctuate from moment to moment. Refused her [facility] medications last night, tells me this is beacuse she was depressed, cannot expand further on this rationale. Denies medication side effects, likes that she got Abilify MORELOS. Today feel tired and thinks this is because she is depressed. Minimal engagement with interview. Physical Exam Psychiatric Orientation: alert Eye Contact: good eye contact Motor Behavior: no abnormal motor movements Speech: normal rate/rhythm/volume of speech Affect: + depressed affect and + blunted affect Mood: + depressed mood Thought Process: + concrete thought process Thought Content: reality based without delusions Suicidal Thoughts: denies suicidal thoughts Homicidal Thoughts: denies homicidal thoughts Hallucinations: no auditory hallucinations and no visual hallucinations Cognition: attention grossly intact and language grossly intact Estimated Intelligence: + below average estimated intelligence Insight: + limited insight Judgement: + limited judgement Vital Signs (Past 24 Hours) Last Vital Signs Temp 36.8 C 08/07/22 19:50 Pulse 84 08/07/22 06:00 Resp 16 08/07/22 06:00 BP 108/78 08/07/22 06:37 Pulse Ox 99 07/29/22 06:20 O2 Del Method 08/07/22 06:00 Results & Data ([facility]) Current Inpatient Medications Current Inpatient Medications: Current Inpatient Medications Acetaminophen (Acetaminophen 325 Mg Tab) 650 mg PO Q4H PRN PRN Reason: Headache or Minor Fever Stop: 08/20/22 18:18 Last Admin: 07/31/22 20:48 Dose: 650 mg Al Hydrox/Mg Hydrox/Simethicone (Aluminum/Magnesium Susp 30 Ml Udc) 30 ml PO Q4H PRN PRN Reason: GI Upset Stop: 08/20/22 18:18 Last Admin: 08/06/22 18:14 Dose: 30 ml Bismuth Subsalicylate (Bismuth Subsalicylate Liqd 236 Ml) 15 ml PO PRN PRN PRN Reason: Loose Stool Stop: 08/20/22 18:18 Last Admin: 07/31/22 13:35 Dose: 15 ml Buspirone HCl (Buspirone 5 Mg Tab) 5 mg PO TID PRN PRN Reason: Anxiety/Agitation Stop: 08/27/22 13:59 Last Admin: 08/06/22 16:16 Dose: 5 mg Clonazepam (Clonazepam 0.25 Mg Tab) 0.25 mg PO BID [facility] Stop: 08/24/22 20:59 Last Admin: 08/08/22 09:27 Dose: 0.25 mg Lamotrigine (Lamotrigine 25 Mg Tab) 50 mg PO HS [facility] Stop: 09/06/22 21:59 Last Admin: 08/07/22 22:12 Dose: Not Given Magnesium Hydroxide (Magnesium Hydroxide Susp 30 Ml Udc) 30 ml PO DAILY PRN PRN Reason: Constipation Stop: 08/20/22 18:18 Multi-Ingredient Cream (Eucerin Cr 120 Gm Jar) 1 appln EXT DAILY PRN PRN Reason: dry skin over knee Stop: 08/29/22 12:40 Last Admin: 08/01/22 18:36 Dose: 1 appln Ondansetron HCl (Ondansetron 4 Mg Od Tab) 4 mg PO Q6H PRN PRN Reason: Nausea Stop: 08/22/22 09:31 Last Admin: 07/25/22 06:28 Dose: 4 mg Pantoprazole Sodium (Pantoprazole 40 Mg Tab) 40 mg PO BID [facility] Stop: 08/21/22 11:44 Last Admin: 08/08/22 09:27 Dose: 40 mg Sodium Chloride (Sodium Chloride 0.65% Na Soln 45 Ml ([place])) 1 - 2 sprays NA PRN PRN PRN Reason: Nasal Dryness/Congestion Stop: 08/20/22 18:18 Mental Health & Subst Abuse Tx Therapist Name of Therapist: Hubert Martinez Kiln Worker Name of Kiln Worker: DANIE Watkins Post Discharge Appointments Primary Care Physician Name Of Family Doctor/PCP: Hubert Mcpherson Specialist Name of Specialist[facility] - Dr. Avila Phone Number for Specialist: Date of Appointment with Specialist: 09/05/22 Time of Appointment with Specialist: 3:40 PM Specialty Appointment Comment: [address]; [address], [place], [place]
[2022-08-08] MEDS: lamoTRIgine 25 MG TAB PO SCH (20:57)
--- NOTE | 2022-08-09 09:12 | Psychiatric Progress Note ---
Date of Service August 09, 2022 Impression / Recommendations Impression 21 yo female with a history of mood dysregulation, complex trauma hx, worsening depression on transition to living independently as an adult, limited coping skills tested by ACL repair. Diagnostically consistent with recurrent MDD in context of limited coping skills and social isolation and increasingly presents with likely cluster B traits/BPD given chronicity of her SI and very limited coping skills for emotional distress/self-harm urges. MNPR due to social skills, knee recovery, limited distress tolerance 08/09/2022: ongoing mood fluctuation, increased depression and anger today. No side effects from higher dose of lamictal last night. Continued efforts to establish increased supports/supervised living environment given her inability to safely live independently. May consider taper of Klonopin as possible it's contributing to disinhibition/mood lability. (1) Post traumatic stress disorder (PTSD): (2) S/P ACL reconstruction: (3) MDD (major depressive disorder), recurrent episode, severe: (4) Intellectual disability: Plan 08/09/22: Continue current medications and tx plan. 08/08/2022: Continue current medications and tx plan. 08/07/2022: titrate lamictal to 50mg qhs. 08/04/2022: Abilify maintenna today, awaiting addition input from CM on diversion 08/03/2022: Continue current medications and tx plan. Option for abilify MORELOS tomorrow if she is interested. 08/02/22: Ongoing insight-oriented approach. Continue current medications and tx plan. 08/01/22: Continue with current medications and tx plan. 07/31/22: Continue with current medications and tx plan. EKG tomorrow to reassess QTc. 07/30/22: Increase abilify to 20mg qd. 07/29/22: Continue with current medications and tx plan. 07/28/22: Increase abilify to 15mg tomorrow morning 07/27/22: Continue with current medications and tx plan. 07/26/22: titrate Abilify to 10 mg starting tomorrow 07/25/22: continue daily ekGs to titrate Abilify to 20 mg in intervals. Monitor sedation on Klonopin, gait is steady, will move 2nd dose to hs. CXR for TB clearance for anticipated state hospital referral. 07/24/22: risks/benefits/alternatives reviewed re: Klonopin trial given random breakthrough anxiety. Discussed resuming Abilify oral dosing so can adjust/monitor QTc. Daily EKG ordered. patient agreeable and will start Abilify 5 mg daily today and Klonopin 0.25 mg po BID. She is ambulating well without her brace. consult PT for final exercises. 07/23/22: d/c Buspar as may be having residual serotonergic sensitivity, daily EKG per hospitalist recommendation, repeat labs unremarkable, vitals stable. Zofran prn. Hold Abilify maintenna due to day given QTc. 07/22/22: The patient was [facility] ([facility] mental health unit) on q15 min checks (behavioral with suicide precautions) for safety. The patient will participate in group, recreational, and milieu therapies and will be offered additional individual and family sessions as clinically appropriate. Restarted Buspar on medical floor, repeat EKG in am to determine appropriateness of Abilify maintenna that is due. Hold Zyprexa. She is aware that would not recommend resume Vistaril or Lexapro. Will offer Buspar 5 mg TID prn as well as frequently requests prn and want to avoid benzos. Restart lamictal as plan of outpatient provider and has never titrated. PT consult as still receiving outpatient PT. Explore possible state hospital referral given need for longer term hospitalization. Inventory Assets Strengths: accepting of services, cooperative with unit routines Needs: improve coping skills, ongoing CM involvement in placement options Suicide Risk Level Suicide Risk Level: High-Moderate (q15 min suicide checks) (labile mood with periods of depression and SI, able to safety contract that she will alert nursing if she feels unable to remain safe or develops SI with plan or intent) Risk Factors Assessment : Yes Do You Have Access To A Gun?: No Health Problems: Yes Mental Health Diagnoses: Yes Substance Use Disorders: No Previous Psychiatric Hospitalization: Yes Protective Factors Assessment Stable Relationships: Yes Interval History Identifying Information BAUTISTA ALLRED is a 21-year-old F who currently lives in [place], has a history of several inpatient stays on 3 S (most recently 07/24), and was admitted on 07/21/22 18:29 on a 201 voluntary commitment s/p medical admission for suicide attempt by OD. Chief Complaint "I would do it all over again if I could". Review of Systems Sleep Information Total Hours of Sleep: 7.75 Sleep Comments: Pt not observed awake until 0600. Meal Information Percent Meal Consumed - Breakfast: 100 Percent Meal Consumed - Lunch: 100 Percent Meal Consumed - Dinner: 100 Subjective Subjective Patient was seen & assessed and interval progress reviewed with treatment team nursing and social work. Took her medications yesterday. Yesterday made request to RN about ways to lose weight and medications to help with weight loss. Today is initially bright and laughing. Tells me her mood is "good" but during our conversation becomes increasingly despondent and tearful then angry. Frustrated with being in the hospital stating she wishes she didn't attempt suicide but then a few minutes later tells me she would attempt all over again. Notes she feels "stuck" and frustrated that there aren't medications that can work immediately and "fix everything". Unwilling to engage further with explorations about mood changes, ways to change thought patterns, build a routine or ways to increase self efficacy. Physical Exam Psychiatric Orientation: alert Eye Contact: good eye contact Motor Behavior: no abnormal motor movements Speech: normal rate/rhythm/volume of speech Affect: euthymic affect, + depressed affect, + tearful affect, + labile affect and + angry affect Mood: + depressed mood and + angry mood Thought Process: + concrete thought process Thought Content: reality based without delusions Suicidal Thoughts: denies suicidal thoughts (but states regret at surviving suicide attempt) Homicidal Thoughts: denies homicidal thoughts Hallucinations: no auditory hallucinations and no visual hallucinations Cognition: attention grossly intact and language grossly intact Estimated Intelligence: + below average estimated intelligence Insight: + limited insight Judgement: + limited judgement Vital Signs (Past 24 Hours) Last Vital Signs Temp 36.9 C 08/08/22 20:50 Pulse 84 08/07/22 06:00 Resp 16 08/07/22 06:00 BP 108/78 08/07/22 06:37 Pulse Ox 99 07/29/22 06:20 O2 Del Method 08/07/22 06:00 Results & Data ([facility]) Current Inpatient Medications Current Inpatient Medications: Current Inpatient Medications Acetaminophen (Acetaminophen 325 Mg Tab) 650 mg PO Q4H PRN PRN Reason: Headache or Minor Fever Stop: 08/20/22 18:18 Last Admin: 07/31/22 20:48 Dose: 650 mg Al Hydrox/Mg Hydrox/Simethicone (Aluminum/Magnesium Susp 30 Ml Udc) 30 ml PO Q4H PRN PRN Reason: GI Upset Stop: 08/20/22 18:18 Last Admin: 08/06/22 18:14 Dose: 30 ml Bismuth Subsalicylate (Bismuth Subsalicylate Liqd 236 Ml) 15 ml PO PRN PRN PRN Reason: Loose Stool Stop: 08/20/22 18:18 Last Admin: 07/31/22 13:35 Dose: 15 ml Buspirone HCl (Buspirone 5 Mg Tab) 5 mg PO TID PRN PRN Reason: Anxiety/Agitation Stop: 08/27/22 13:59 Last Admin: 08/06/22 16:16 Dose: 5 mg Clonazepam (Clonazepam 0.25 Mg Tab) 0.25 mg PO BID [facility] Stop: 08/24/22 20:59 Last Admin: 08/08/22 20:58 Dose: 0.25 mg Lamotrigine (Lamotrigine 25 Mg Tab) 50 mg PO HS [facility] Stop: 09/06/22 21:59 Last Admin: 08/08/22 20:57 Dose: 50 mg Magnesium Hydroxide (Magnesium Hydroxide Susp 30 Ml Udc) 30 ml PO DAILY PRN PRN Reason: Constipation Stop: 08/20/22 18:18 Multi-Ingredient Cream (Eucerin Cr 120 Gm Jar) 1 appln EXT DAILY PRN PRN Reason: dry skin over knee Stop: 08/29/22 12:40 Last Admin: 08/01/22 18:36 Dose: 1 appln Ondansetron HCl (Ondansetron 4 Mg Od Tab) 4 mg PO Q6H PRN PRN Reason: Nausea Stop: 08/22/22 09:31 Last Admin: 07/25/22 06:28 Dose: 4 mg Pantoprazole Sodium (Pantoprazole 40 Mg Tab) 40 mg PO BID [facility] Stop: 08/21/22 11:44 Last Admin: 08/08/22 20:57 Dose: 40 mg Sodium Chloride (Sodium Chloride 0.65% Na Soln 45 Ml ([employer])) 1 - 2 sprays NA PRN PRN PRN Reason: Nasal Dryness/Congestion Stop: 08/20/22 18:18 Mental Health & Subst Abuse Tx Therapist Name of Therapist: Hubert Martinez Technical Programs Manager Name of Technical Programs Manager: DANIE Watkins Post Discharge Appointments Primary Care Physician Name Of Family Doctor/PCP: Hubert Mcpherson Specialist Name of Specialist: [facility] - Dr. Avila Phone Number for Specialist: Date of Appointment with Specialist: 09/05/22 Time of Appointment with Specialist: 3:40 PM Specialty Appointment Comment: [address]; [address], [place], [place]
[2022-08-09] MEDS: PANTOprazole 40 MG TAB PO SCH ×2 (09:17→20:47)
[2022-08-09] MEDS: clonazePAM 0.25 MG TAB PO SCH ×2 (09:17→20:48)
[2022-08-09] MEDS: lamoTRIgine 25 MG TAB PO SCH (20:47)
[2022-08-09] MEDS: busPIRone 5 MG TAB PO PRN (21:03)
--- NOTE | 2022-08-10 09:02 | Psychiatric Progress Note ---
Date of Service August 10, 2022 Impression / Recommendations Impression 21 yo female with a history of mood dysregulation, complex trauma hx, worsening depression on transition to living independently as an adult, limited coping skills tested by ACL repair. Diagnostically consistent with recurrent MDD in context of limited coping skills and social isolation and increasingly presents with likely cluster B traits/BPD given chronicity of her SI and very limited coping skills for emotional distress/self-harm urges. MNPR due to social skills, knee recovery, limited distress tolerance 08/10/2022: ongoing mood fluctuation, increased sadness today due to anniversary of her friend's by suicide. (1) Post traumatic stress disorder (PTSD): (2) S/P ACL reconstruction: (3) MDD (major depressive disorder), recurrent episode, severe: (4) Intellectual disability: Plan 08/10/22: Taper Klonopin to 0.25mg qd given concerns of disinhibition. 08/09/22: Continue current medications and tx plan. 08/08/2022: Continue current medications and tx plan. 08/07/2022: titrate lamictal to 50mg qhs. 08/04/2022: Abilify maintenna today, awaiting addition input from CM on diversion 08/03/2022: Continue current medications and tx plan. Option for abilify MORELOS tomorrow if she is interested. 08/02/22: Ongoing insight-oriented approach. Continue current medications and tx plan. 08/01/22: Continue with current medications and tx plan. 07/31/22: Continue with current medications and tx plan. EKG tomorrow to reassess QTc. 07/30/22: Increase abilify to 20mg qd. 07/29/22: Continue with current medications and tx plan. 07/28/22: Increase abilify to 15mg tomorrow morning 07/27/22: Continue with current medications and tx plan. 07/26/22: titrate Abilify to 10 mg starting tomorrow 07/25/22: continue daily ekGs to titrate Abilify to 20 mg in intervals. Monitor sedation on Klonopin, gait is steady, will move 2nd dose to hs. CXR for TB clearance for anticipated [facility] referral. 07/24/22: risks/benefits/alternatives reviewed re: Klonopin trial given random breakthrough anxiety. Discussed resuming Abilify oral dosing so can adjust/monitor QTc. Daily EKG ordered. patient agreeable and will start Abilify 5 mg daily today and Klonopin 0.25 mg po BID. She is ambulating well without her brace. consult PT for final exercises. 07/23/22: d/c Buspar as may be having residual serotonergic sensitivity, daily EKG per hospitalist recommendation, repeat labs unremarkable, vitals stable. Zofran prn. Hold Abilify maintenna due to day given QTc. 07/22/22: The patient was admitted to the [facility] ([facility] mental health unit) on q15 min checks (behavioral with suicide precautions) for safety. The patient will participate in group, recreational, and milieu therapies and will be offered additional individual and family sessions as clinically appropriate. Restarted Buspar on medical floor, repeat EKG in am to determine appropriateness of Abilify maintenna that is due. Hold Zyprexa. She is aware that would not recommend resume Vistaril or Lexapro. Will offer Buspar 5 mg TID prn as well as frequently requests prn and want to avoid benzos. Restart lamictal as plan of outpatient provider and has never titrated. PT consult as still receiving outpatient PT. Explore possible state hospital referral given need for longer term hospitalization. Inventory Assets Strengths: accepting of services, cooperative with unit routines Needs: improve coping skills, ongoing CM involvement in placement options Suicide Risk Level Suicide Risk Level: High-Moderate (q15 min suicide checks) (labile mood with periods of depression and SI, able to safety contract that she will alert nursing if she feels unable to remain safe or develops SI with plan or intent) Risk Factors Assessment : Yes Do You Have Access To A Gun?: No Health Problems: Yes Mental Health Diagnoses: Yes Substance Use Disorders: No Previous Psychiatric Hospitalization: Yes Protective Factors Assessment Stable Relationships: Yes Interval History Identifying Information BAUTISTA ALLRED is a 21-year-old F who currently lives in [place], has a history of several inpatient stays on 3 S (most recently 07/24), and was admitted on 07/21/22 18:29 on a 201 voluntary commitment s/p medical admission for suicide attempt by OD. Chief Complaint "It's a really emotional day for me". Review of Systems Sleep Information Total Hours of Sleep: 6 Sleep Comments: Pt not observed awake until 0600. Meal Information Percent Meal Consumed - Breakfast: 100 Percent Meal Consumed - Lunch: 100 Percent Meal Consumed - Dinner: 100 Subjective Subjective Patient was seen & assessed and interval progress reviewed with treatment team nursing and social work. Today is the one year anniversary of her friend's by suicide. She spoke last evening with the friend's family. Slept well. Showered but then went back to bed. Notes she is feeling a lot of emotions today but a lot of grief and sadness. Discussed ways to honor her friend's memory and to create a ritual that can remind her of the good memories and interests they shared. She agreed to try a meditation and to create a memory box. Denies any medication side effects. Remains very labile-going from cheerful to tearful. Physical Exam Psychiatric Orientation: alert Eye Contact: good eye contact Motor Behavior: no abnormal motor movements Speech: normal rate/rhythm/volume of speech Affect: euthymic affect, + depressed affect, + tearful affect and + labile affect Mood: + depressed mood Thought Process: + concrete thought process Thought Content: reality based without delusions Suicidal Thoughts: denies suicidal thoughts (but intermittently states regret at surviving suicide attempt) Homicidal Thoughts: denies homicidal thoughts Hallucinations: no auditory hallucinations and no visual hallucinations Cognition: attention grossly intact and language grossly intact Estimated Intelligence: + below average estimated intelligence Insight: + limited insight Judgement: + limited judgement Vital Signs (Past 24 Hours) Last Vital Signs Temp 36.7 C 08/10/22 06:37 Pulse 103 H 08/10/22 06:38 Resp 18 08/10/22 06:37 BP 124/83 08/10/22 06:38 Pulse Ox 99 07/29/22 06:20 O2 Del Method 08/07/22 06:00 Results & Data ([facility]) Current Inpatient Medications Current Inpatient Medications: Current Inpatient Medications Acetaminophen (Acetaminophen 325 Mg Tab) 650 mg PO Q4H PRN PRN Reason: Headache or Minor Fever Stop: 08/20/22 18:18 Last Admin: 07/31/22 20:48 Dose: 650 mg Al Hydrox/Mg Hydrox/Simethicone (Aluminum/Magnesium Susp 30 Ml Udc) 30 ml PO Q4H PRN PRN Reason: GI Upset Stop: 08/20/22 18:18 Last Admin: 08/06/22 18:14 Dose: 30 ml Bismuth Subsalicylate (Bismuth Subsalicylate Liqd 236 Ml) 15 ml PO PRN PRN PRN Reason: Loose Stool Stop: 08/20/22 18:18 Last Admin: 07/31/22 13:35 Dose: 15 ml Buspirone HCl (Buspirone 5 Mg Tab) 5 mg PO TID PRN PRN Reason: Anxiety/Agitation Stop: 08/27/22 13:59 Last Admin: 08/09/22 21:03 Dose: 5 mg Clonazepam (Clonazepam 0.25 Mg Tab) 0.25 mg PO BID [facility] Stop: 08/24/22 20:59 Last Admin: 08/09/22 20:48 Dose: 0.25 mg Lamotrigine (Lamotrigine 25 Mg Tab) 50 mg PO HS [facility] Stop: 09/06/22 21:59 Last Admin: 08/09/22 20:47 Dose: 50 mg Magnesium Hydroxide (Magnesium Hydroxide Susp 30 Ml Udc) 30 ml PO DAILY PRN PRN Reason: Constipation Stop: 08/20/22 18:18 Multi-Ingredient Cream (Eucerin Cr 120 Gm Jar) 1 appln EXT DAILY PRN PRN Reason: dry skin over knee Stop: 08/29/22 12:40 Last Admin: 08/01/22 18:36 Dose: 1 appln Ondansetron HCl (Ondansetron 4 Mg Od Tab) 4 mg PO Q6H PRN PRN Reason: Nausea Stop: 08/22/22 09:31 Last Admin: 07/25/22 06:28 Dose: 4 mg Pantoprazole Sodium (Pantoprazole 40 Mg Tab) 40 mg PO BID [facility] Stop: 08/21/22 11:44 Last Admin: 08/09/22 20:47 Dose: 40 mg Sodium Chloride (Sodium Chloride 0.65% Na Soln 45 Ml ([place])) 1 - 2 sprays NA PRN PRN PRN Reason: Nasal Dryness/Congestion Stop: 08/20/22 18:18 Mental Health & Subst Abuse Tx Therapist Name of Therapist: Hubert Martinez Screw Machine Tender Name of Screw Machine Tender: DANIE Watkins Post Discharge Appointments Primary Care Physician Name Of Family Doctor/PCP: Hubert Mcpherson Specialist Name of Specialist: [facility] [place] [facility]. Avila Phone Number for Specialist: Date of Appointment with Specialist: 09/05/22 Time of Appointment with Specialist: 3:40 PM Specialty Appointment Comment: [address]; [address], [place], [place]
[2022-08-10] MEDS: clonazePAM 0.25 MG TAB PO SCH (09:30)
[2022-08-10] MEDS: PANTOprazole 40 MG TAB PO SCH ×2 (09:30→21:02)
[2022-08-10] MEDS: lamoTRIgine 25 MG TAB PO SCH (21:03)
[2022-08-10] MEDS: EUCERIN CR 120 GM JAR EXT PRN (21:49)
[2022-08-11] MEDS: clonazePAM 0.25 MG TAB PO SCH (08:48)
[2022-08-11] MEDS: PANTOprazole 40 MG TAB PO SCH ×2 (08:48→20:21)
--- NOTE | 2022-08-11 15:20 | Psychiatric Progress Note ---
Date of Service August 11, 2022 Impression / Recommendations Impression 21 yo female with a history of mood dysregulation, complex trauma hx, worsening depression on transition to living independently as an adult, limited coping skills tested by ACL repair. Diagnostically consistent with recurrent MDD in context of limited coping skills and social isolation and increasingly presents with likely cluster B traits/BPD given chronicity of her SI and very limited coping skills for emotional distress/self-harm urges. MNPR due to social skills, knee recovery, limited distress tolerance 08/11/2022: ongoing mood fluctuation, slight improvement in mood today. Reviewed updated scores from neuropsych evaluation notable for significant reduction in adaptive scores. Pursue possible CSRU options. (1) Post traumatic stress disorder (PTSD): (2) S/P ACL reconstruction: (3) MDD (major depressive disorder), recurrent episode, severe: (4) Intellectual disability: Plan 08/11/22: Continue current medications and tx plan. Ongoing coordination with [facility] regarding potential services for co-morbid intellectual disability. 08/10/22: Taper Klonopin to 0.25mg qd given concerns of disinhibition. 08/09/22: Continue current medications and tx plan. 08/08/2022: Continue current medications and tx plan. 08/07/2022: titrate lamictal to 50mg qhs. 08/04/2022: Abilify darryltenna today, awaiting addition input from CM on diversion 08/03/2022: Continue current medications and tx plan. Option for abilify MORELOS tomorrow if she is interested. 08/02/22: Ongoing insight-oriented approach. Continue current medications and tx plan. 08/01/22: Continue with current medications and tx plan. 07/31/22: Continue with current medications and tx plan. EKG tomorrow to reassess QTc. 07/30/22: Increase abilify to 20mg qd. 07/29/22: Continue with current medications and tx plan. 07/28/22: Increase abilify to 15mg tomorrow morning 07/27/22: Continue with current medications and tx plan. 07/26/22: titrate Abilify to 10 mg starting tomorrow 07/25/22: continue daily ekGs to titrate Abilify to 20 mg in intervals. Monitor sedation on Klonopin, gait is steady, will move 2nd dose to hs. CXR for TB clearance for anticipated state hospital referral. 07/24/22: risks/benefits/alternatives reviewed re: Klonopin trial given random breakthrough anxiety. Discussed resuming Abilify oral dosing so can adjust/adriana tor QTc. Daily EKG ordered. patient agreeable and will start Abilify 5 mg daily today and Klonopin 0.25 mg po BID. She is ambulating well without her brace. consult PT for final exercises. 07/23/22: d/c Buspar as may be having residual serotonergic sensitivity, daily EKG per hospitalist recommendation, repeat labs unremarkable, vitals stable. Zofran prn. Hold Abilify maintenna due to day given QTc. 07/22/22: [facility]) on q15 min checks (behavioral with suicide precautions) for safety. The patient will participate in group, recreational, and milieu therapies and will be offered additional individual and family sessions as clinically appropriate. Restarted Buspar on medical floor, repeat EKG in am to determine appropriateness of Abilify maintenna that is due. Hold Zyprexa. She is aware that would not recommend resume Vistaril or Lexapro. Will offer Buspar 5 mg TID prn as well as frequently requests prn and want to avoid benzos. Restart lamictal as plan of outpatient provider and has never titrated. PT consult as still receiving outpatient PT. Explore possible state hospital referral given need for longer term hospitalization. Inventory Assets Strengths: accepting of services, cooperative with unit routines Needs: improve coping skills, ongoing CM involvement in placement options Suicide Risk Level Suicide Risk Level: High-Moderate (q15 min suicide checks) (labile mood with periods of depression and SI, able to safety contract that she will alert nursing if she feels unable to remain safe or develops SI with plan or intent) Risk Factors Assessment : Yes Do You Have Access To A Gun?: No Health Problems: Yes Mental Health Diagnoses: Yes Substance Use Disorders: No Previous Psychiatric Hospitalization: Yes Protective Factors Assessment Stable Relationships: Yes Interval History Identifying Information BAUTISTA ALLRED is a 21-year-old F who currently lives in [place], has a history of several inpatient stays on 3 S (most recently 07/24), and was admitted on 07/21/22 18:29 on a 201 voluntary commitment s/p medical admission for suicide attempt by OD. Chief Complaint "I'm good". Review of Systems Sleep Information Total Hours of Sleep: 4.5 Sleep Comments: early riser- around 0400 Meal Information Percent Meal Consumed - Breakfast: 100 Percent Meal Consumed - Lunch: 100 Percent Meal Consumed - Dinner: 100 Subjective Subjective Patient was seen & assessed and interval progress reviewed with treatment team nursing and social work. More depressed mood yesterday due to grief. Today reports improved mood as she feels she is finding more ways to cope with her emotions such as listening to music and doing art. Met with her outpatient watch caser. Denies any medication side effects. Slept poorly last night, isn't sure why. Physical Exam Psychiatric Orientation: alert and oriented x 3 Eye Contact: good eye contact Motor Behavior: no abnormal motor movements Speech: normal rate/rhythm/volume of speech Affect: euthymic affect and + labile affect Mood: + depressed mood and + anxious mood Thought Process: + concrete thought process Thought Content: reality based without delusions Suicidal Thoughts: denies suicidal thoughts (intermittent SI ) Homicidal Thoughts: denies homicidal thoughts Hallucinations: no auditory hallucinations and no visual hallucinations Cognition: attention grossly intact and language grossly intact Estimated Intelligence: + below average estimated intelligence Insight: + limited insight Judgement: + limited judgement Vital Signs (Past 24 Hours) Last Vital Signs Temp 36.8 C 08/10/22 22:21 Pulse 103 H 08/10/22 06:38 Resp 18 08/10/22 06:37 BP 124/83 08/10/22 06:38 Pulse Ox 99 07/29/22 06:20 O2 Del Method 08/07/22 06:00 Results & Data ([facility]) Current Inpatient Medications Current Inpatient Medications: Current Inpatient Medications Acetaminophen (Acetaminophen 325 Mg Tab) 650 mg PO Q4H PRN PRN Reason: Headache or Minor Fever Stop: 08/20/22 18:18 Last Admin: 07/31/22 20:48 Dose: 650 mg Al Hydrox/Mg Hydrox/Simethicone (Aluminum/Magnesium Susp 30 Ml Udc) 30 ml PO Q4H PRN PRN Reason: GI Upset Stop: 08/20/22 18:18 Last Admin: 08/06/22 18:14 Dose: 30 ml Bismuth Subsalicylate (Bismuth Subsalicylate Liqd 236 Ml) 15 ml PO PRN PRN PRN Reason: Loose Stool Stop: 08/20/22 18:18 Last Admin: 07/31/22 13:35 Dose: 15 ml Buspirone HCl (Buspirone 5 Mg Tab) 5 mg PO TID PRN PRN Reason: Anxiety/Agitation Stop: 08/27/22 13:59 Last Admin: 08/09/22 21:03 Dose: 5 mg Clonazepam (Clonazepam 0.25 Mg Tab) 0.25 mg PO QD@08 [facility] Stop: 09/10/22 07:59 Last Admin: 08/11/22 08:48 Dose: 0.25 mg Lamotrigine (Lamotrigine 25 Mg Tab) 50 mg PO HS [facility] Stop: 09/06/22 21:59 Last Admin: 08/10/22 21:03 Dose: 50 mg Magnesium Hydroxide (Magnesium Hydroxide Susp 30 Ml Udc) 30 ml PO DAILY PRN PRN Reason: Constipation Stop: 08/20/22 18:18 Multi-Ingredient Cream (Eucerin Cr 120 Gm Jar) 1 appln EXT DAILY PRN PRN Reason: dry skin over knee Stop: 08/29/22 12:40 Last Admin: 08/10/22 21:49 Dose: 1 appln Ondansetron HCl (Ondansetron 4 Mg Od Tab) 4 mg PO Q6H PRN PRN Reason: Nausea Stop: 08/22/22 09:31 Last Admin: 07/25/22 06:28 Dose: 4 mg Pantoprazole Sodium (Pantoprazole 40 Mg Tab) 40 mg PO BID [facility] Stop: 08/21/22 11:44 Last Admin: 08/11/22 08:48 Dose: 40 mg Sodium Chloride (Sodium Chloride 0.65% Na Soln 45 Ml ([place])) 1 - 2 sprays NA PRN PRN PRN Reason: Nasal Dryness/Congestion Stop: 08/20/22 18:18 Mental Health & Subst Abuse Tx Therapist Name of Therapist: Hubert Martinez Vet Tech Name of Vet Tech: DANEI Watkins Post Discharge Appointments Primary Care Physician Name Of Family Doctor/PCP: Hubert Mcpherson Specialist Name of Specialist: [facility] - Dr. Avila Phone Number for Specialist: Date of Appointment with Specialist: 09/05/22 Time of Appointment with Specialist: 3:40 PM Specialty Appointment Comment: [id number]; [address], [place], [place]
[2022-08-11] MEDS: lamoTRIgine 25 MG TAB PO SCH (20:21)
[2022-08-11] MEDS: busPIRone 5 MG TAB PO PRN (23:09)
[2022-08-12] MEDS: clonazePAM 0.25 MG TAB PO SCH (08:00)
[2022-08-12] MEDS: PANTOprazole 40 MG TAB PO SCH ×2 (08:00→20:59)
--- NOTE | 2022-08-12 08:42 | Psychiatric Progress Note ---
Date of Service August 12, 2022 Impression / Recommendations Impression 21 yo female with a history of mood dysregulation, complex trauma hx, worsening depression on transition to living independently as an adult, limited coping skills tested by ACL repair. Diagnostically consistent with recurrent MDD in context of limited coping skills and social isolation and increasingly presents with likely cluster B traits/BPD given chronicity of her SI and very limited coping skills for emotional distress/self-harm urges. MNPR due to social skills, knee recovery, limited distress tolerance 08/12/2022: ongoing mood fluctuation, panic attack yesterday evening coinciding with taper of Klonopin. Will continue to monitor as overall slightly less labile suggesting possible disinhibition component. Continuing to pursue possible CSRU option for longer term supervised setting given inability to safely function independently. (1) Post traumatic stress disorder (PTSD): (2) S/P ACL reconstruction: (3) MDD (major depressive disorder), recurrent episode, severe: (4) Intellectual disability: Plan 08/12/22: Continue current medications and tx plan. 08/11/22: Continue current medications and tx plan. Ongoing coordination with [facility] regarding potential services for co-morbid intellectual disability. 08/10/22: Taper Klonopin to 0.25mg qd given concerns of disinhibition. 08/09/22: Continue current medications and tx plan. 08/08/2022: Continue current medications and tx plan. 08/07/2022: titrate lamictal to 50mg qhs. 08/04/2022: Abilify maintenna today, awaiting addition input from CM on diversion 08/03/2022: Continue current medications and tx plan. Option for abilify MORELOS tomorrow if she is interested. 08/02/22: Ongoing insight-oriented approach. Continue current medications and tx plan. 08/01/22: Continue with current medications and tx plan. 07/31/22: Continue with current medications and tx plan. EKG tomorrow to reassess QTc. 07/30/22: Increase abilify to 20mg qd. 07/29/22: Continue with current medications and tx plan. 07/28/22: Increase abilify to 15mg tomorrow morning 07/27/22: Continue with current medications and tx plan. 07/26/22: titrate Abilify to 10 mg starting tomorrow 07/25/22: continue daily ekGs to titrate Abilify to 20 mg in intervals. Monitor sedation on Klonopin, gait is steady, will move 2nd dose to hs. CXR for TB clearance for anticipated state hospital referral. 07/24/22: risks/benefits/alternatives reviewed re: Klonopin trial given random breakthrough anxiety. Discussed resuming Abilify oral dosing so can adjust/monitor QTc. Daily EKG ordered. patient agreeable and will start Abilify 5 mg daily today and Klonopin 0.25 mg po BID. She is ambulating well without her brace. consult PT for final exercises. 07/23/22: d/c Buspar as may be having residual serotonergic sensitivity, daily EKG per hospitalist recommendation, repeat labs unremarkable, vitals stable. Zofran prn. Hold Abilify maintenna due to day given QTc. 07/22/22: The patient was admitted to the [facility] (health [facility] mental health unit) on q15 min checks (behavioral with suicide precautions) for safety. The patient will participate in group, recreational, and milieu therapies and will be offered additional individual and family sessions as clinically appropriate. Restarted Buspar on medical floor, repeat EKG in am to determine appropriateness of Abilify maintenna that is due. Hold Zyprexa. She is aware that would not recommend resume Vistaril or Lexapro. Will offer Buspar 5 mg TID prn as well as frequently requests prn and want to avoid benzos. Restart lamictal as plan of outpatient provider and has never titrated. PT consult as still receiving outpatient PT. Explore possible state hospital referral given need for longer term hospitalization. Inventory Assets Strengths: accepting of services, cooperative with unit routines Needs: improve coping skills, ongoing CM involvement in placement options Suicide Risk Level Suicide Risk Level: High-Moderate (q15 min suicide checks) (labile mood with periods of depression and SI, able to safety contract that she will alert nursing if she feels unable to remain safe or develops SI with plan or intent) Risk Factors Assessment : Yes Do You Have Access To A Gun?: No Health Problems: Yes Mental Health Diagnoses: Yes Substance Use Disorders: No Previous Psychiatric Hospitalization: Yes Protective Factors Assessment Stable Relationships: Yes Interval History Identifying Information BAUTISTA ALLRED is a 21-year-old F who currently lives in [place], has a history of several inpatient stays on 3 S (most recently 07/24), and was admitted on 07/21/22 18:29 on a 201 voluntary commitment s/p medical admission for suicide attempt by OD. Chief Complaint "I had a really bad panic attack last night". Review of Systems Sleep Information Total Hours of Sleep: 4 Sleep Comments: early riser- around 0400 Meal Information Percent Meal Consumed - Breakfast: 100 Percent Meal Consumed - Lunch: 100 Percent Meal Consumed - Dinner: 100 Subjective Subjective Patient was seen & assessed and interval progress reviewed with treatment team nursing and social work. Met with Sound[employer] Mechanic last evening and affect was brighter. Had panic attack yesterday evening and today reports this caused her to feel more depressed and tearful. Was able to try walking, processing with RN, took prn medication and then was able to fall asleep. Today mood is a little better but remains labile. Did not sleep well last night. Physical Exam Psychiatric Orientation: alert and oriented x 3 Eye Contact: good eye contact Motor Behavior: no abnormal motor movements Speech: normal rate/rhythm/volume of speech Affect: + labile affect Mood: + depressed mood and + anxious mood Thought Process: + concrete thought process Thought Content: reality based without delusions Suicidal Thoughts: denies suicidal thoughts (intermittent SI ) Homicidal Thoughts: denies homicidal thoughts Hallucinations: no auditory hallucinations and no visual hallucinations Cognition: attention grossly intact and language grossly intact Estimated Intelligence: + below average estimated intelligence Insight: + limited insight Judgement: + limited judgement Vital Signs (Past 24 Hours) Last Vital Signs Temp 36.4 C L 08/12/22 06:35 Pulse 91 H 08/12/22 06:35 Resp 18 08/12/22 06:35 BP 106/72 08/12/22 06:35 Pulse Ox 99 07/29/22 06:20 O2 Del Method 08/07/22 06:00 Results & Data ([facility]) Current Inpatient Medications Current Inpatient Medications: Current Inpatient Medications Acetaminophen (Acetaminophen 325 Mg Tab) 650 mg PO Q4H PRN PRN Reason: Headache or Minor Fever Stop: 08/20/22 18:18 Last Admin: 07/31/22 20:48 Dose: 650 mg Al Hydrox/Mg Hydrox/Simethicone (Aluminum/Magnesium Susp 30 Ml Udc) 30 ml PO Q4H PRN PRN Reason: GI Upset Stop: 08/20/22 18:18 Last Admin: 08/06/22 18:14 Dose: 30 ml Bismuth Subsalicylate (Bismuth Subsalicylate Liqd 236 Ml) 15 ml PO PRN PRN PRN Reason: Loose Stool Stop: 08/20/22 18:18 Last Admin: 07/31/22 13:35 Dose: 15 ml Buspirone HCl (Buspirone 5 Mg Tab) 5 mg PO TID PRN PRN Reason: Anxiety/Agitation Stop: 08/27/22 13:59 Last Admin: 08/11/22 23:09 Dose: 5 mg Clonazepam (Clonazepam 0.25 Mg Tab) 0.25 mg PO QD@08 [facility] Stop: 09/10/22 07:59 Last Admin: 08/12/22 08:00 Dose: 0.25 mg Lamotrigine (Lamotrigine 25 Mg Tab) 50 mg PO HS [facility] Stop: 09/06/22 21:59 Last Admin: 08/11/22 20:21 Dose: 50 mg Magnesium Hydroxide (Magnesium Hydroxide Susp 30 Ml Udc) 30 ml PO DAILY PRN PRN Reason: Constipation Stop: 08/20/22 18:18 Multi-Ingredient Cream (Eucerin Cr 120 Gm Jar) 1 appln EXT DAILY PRN PRN Reason: dry skin over knee Stop: 08/29/22 12:40 Last Admin: 08/10/22 21:49 Dose: 1 appln Ondansetron HCl (Ondansetron 4 Mg Od Tab) 4 mg PO Q6H PRN PRN Reason: Nausea Stop: 08/22/22 09:31 Last Admin: 07/25/22 06:28 Dose: 4 mg Pantoprazole Sodium (Pantoprazole 40 Mg Tab) 40 mg PO BID [facility] Stop: 08/21/22 11:44 Last Admin: 08/12/22 08:00 Dose: 40 mg Sodium Chloride (Sodium Chloride 0.65% Na Soln 45 Ml ([place])) 1 - 2 sprays NA PRN PRN PRN Reason: Nasal Dryness/Congestion Stop: 08/20/22 18:18 Mental Health & Subst Abuse Tx Therapist Name of Therapist: Hubert Martinez Bin Filler Name of Bin Filler: DANIE Watkins Post Discharge Appointments Primary Care Physician Name Of Family Doctor/PCP: [place]- Dr. Mcpherson Specialist Name of Specialist: [facility] - Dr. Avila Phone Number for Specialist: Date of Appointment with Specialist: 09/05/22 Time of Appointment with Specialist: 3:40 PM Specialty Appointment Comment: [address]; [address], [place], [place]
[2022-08-12] MEDS: busPIRone 5 MG TAB PO PRN (15:06)
[2022-08-12] MEDS: lamoTRIgine 25 MG TAB PO SCH (20:58)
[2022-08-13] MEDS: PANTOprazole 40 MG TAB PO SCH ×2 (08:54→20:15)
[2022-08-13] MEDS: clonazePAM 0.25 MG TAB PO SCH (08:54)
--- NOTE | 2022-08-13 08:56 | Psychiatric Progress Note ---
Date of Service August 13, 2022 Impression / Recommendations Impression 21 yo female with a history of mood dysregulation, complex trauma hx, worsening depression on transition to living independently as an adult, limited coping skills tested by ACL repair. Diagnostically consistent with recurrent MDD in context of limited coping skills and social isolation and increasingly presents with likely cluster B traits/BPD given chronicity of her SI and very limited coping skills for emotional distress/self-harm urges. MNPR due to social skills, knee recovery, limited distress tolerance 08/13/2022: ongoing mood fluctuation, slightly better today. Continuing to pursue possible CSRU option for longer term supervised setting given inability to safely function independently. (1) Post traumatic stress disorder (PTSD): (2) S/P ACL reconstruction: (3) MDD (major depressive disorder), recurrent episode, severe: (4) Intellectual disability: Plan 08/13/22: Continue current medications and tx plan. 08/12/22: Continue current medications and tx plan. 08/11/22: Continue current medications and tx plan. Ongoing coordination with [facility] regarding potential services for co-morbid intellectual disability. 08/10/22: Taper Klonopin to 0.25mg qd given concerns of disinhibition. 08/09/22: Continue current medications and tx plan. 08/08/2022: Continue current medications and tx plan. 08/07/2022: titrate lamictal to 50mg qhs. 08/04/2022: Abilify maintenna today, awaiting addition input from CM on diversion 08/03/2022: Continue current medications and tx plan. Option for abilify MORELOS tomorrow if she is interested. 08/02/22: Ongoing insight-oriented approach. Continue current medications and tx plan. 08/01/22: Continue with current medications and tx plan. 07/31/22: Continue with current medications and tx plan. EKG tomorrow to reassess QTc. 07/30/22: Increase abilify to 20mg qd. 07/29/22: Continue with current medications and tx plan. 07/28/22: Increase abilify to 15mg tomorrow morning 07/27/22: Continue with current medications and tx plan. 07/26/22: titrate Abilify to 10 mg starting tomorrow 07/25/22: continue daily ekGs to titrate Abilify to 20 mg in intervals. Monitor sedation on Klonopin, gait is steady, will move 2nd dose to hs. CXR for TB clearance for anticipated state hospital referral. 07/24/22: risks/benefits/alternatives reviewed re: Klonopin trial given random breakthrough anxiety. Discussed resuming Abilify oral dosing so can adjust/monitor QTc. Daily EKG ordered. patient agreeable and will start Abilify 5 mg daily today and Klonopin 0.25 mg po BID. She is ambulating well without her brace. consult PT for final exercises. 07/23/22: d/c Buspar as may be having residual serotonergic sensitivity, daily EKG per hospitalist recommendation, repeat labs unremarkable, vitals stable. Zofran prn. Hold Abilify maintenna due to day given QTc. 07/22/22: The patient was admitted to the [facility] ([facility] mental health unit) on q15 min checks (behavioral with suicide precautions) for safety. The patient will participate in group, recreational, and milieu therapies and will be offered additional individual and family sessions as clinically appropriate. Restarted Buspar on medical floor, repeat EKG in am to determine appropriateness of Abilify maintenna that is due. Hold Zyprexa. She is aware that would not recommend resume Vistaril or Lexapro. Will offer Buspar 5 mg TID prn as well as frequently requests prn and want to avoid benzos. Restart lamictal as plan of outpatient provider and has never titrated. PT consult as still receiving outpatient PT. Explore possible state hospital referral given need for longer term hospitalization. Inventory Assets Strengths: accepting of services, cooperative with unit routines Needs: improve coping skills, ongoing CM involvement in placement options Suicide Risk Level Suicide Risk Level: High-Moderate (q15 min suicide checks) (labile mood with periods of depression and SI, able to safety contract that she will alert nursing if she feels unable to remain safe or develops SI with plan or intent) Risk Factors Assessment : Yes Do You Have Access To A Gun?: No Health Problems: Yes Mental Health Diagnoses: Yes Substance Use Disorders: No Previous Psychiatric Hospitalization: Yes Protective Factors Assessment Stable Relationships: Yes Interval History Identifying Information BAUTISTA ALLRED is a 21-year-old F who currently lives in [place], has a history of several inpatient stays on 3 S (most recently 07/24), and was admitted on 07/21/22 18:29 on a 201 voluntary commitment s/p medical admission for suicide attempt by OD. Chief Complaint "I was a little sad last night". Review of Systems Sleep Information Total Hours of Sleep: 7 Sleep Comments: early riser- around 0400 Meal Information Percent Meal Consumed - Breakfast: 100 Percent Meal Consumed - Lunch: 100 Percent Meal Consumed - Dinner: 100 Nutrition Comment: pt. reports episode of emesis Subjective Subjective Patient was seen & assessed and interval progress reviewed with treatment team nursing and social work. Slightly less irritable. Last evening more isolative to her room. Today reports her mood is a little better, she likes walking and finding showering is a helpful coping skills. Wants to work on "making my moods more stable". Liked meeting with the saloonkeeper is going to focus on eating more protein with her meals. Physical Exam Psychiatric Orientation: alert and oriented x 3 Eye Contact: good eye contact Motor Behavior: no abnormal motor movements Speech: normal rate/rhythm/volume of speech Affect: + labile affect Mood: + depressed mood and + anxious mood Thought Process: + concrete thought process Thought Content: reality based without delusions Suicidal Thoughts: denies suicidal thoughts (intermittent SI ) Homicidal Thoughts: denies homicidal thoughts Hallucinations: no auditory hallucinations and no visual hallucinations Cognition: attention grossly intact and language grossly intact Estimated Intelligence: + below average estimated intelligence Insight: + limited insight Judgement: + limited judgement Vital Signs (Past 24 Hours) Last Vital Signs Temp 37.3 C 08/12/22 20:00 Pulse 91 H 08/12/22 06:35 Resp 18 08/12/22 06:35 BP 106/72 08/12/22 06:35 Pulse Ox 99 07/29/22 06:20 O2 Del Method 08/07/22 06:00 Results & Data ([facility]) Current Inpatient Medications Current Inpatient Medications: Current Inpatient Medications Acetaminophen (Acetaminophen 325 Mg Tab) 650 mg PO Q4H PRN PRN Reason: Headache or Minor Fever Stop: 08/20/22 18:18 Last Admin: 07/31/22 20:48 Dose: 650 mg Al Hydrox/Mg Hydrox/Simethicone (Aluminum/Magnesium Susp 30 Ml Udc) 30 ml PO Q4H PRN PRN Reason: GI Upset Stop: 08/20/22 18:18 Last Admin: 08/06/22 18:14 Dose: 30 ml Bismuth Subsalicylate (Bismuth Subsalicylate Liqd 236 Ml) 15 ml PO PRN PRN PRN Reason: Loose Stool Stop: 08/20/22 18:18 Last Admin: 07/31/22 13:35 Dose: 15 ml Buspirone HCl (Buspirone 5 Mg Tab) 5 mg PO TID PRN PRN Reason: Anxiety/Agitation Stop: 08/27/22 13:59 Last Admin: 08/12/22 15:06 Dose: 5 mg Clonazepam (Clonazepam 0.25 Mg Tab) 0.25 mg PO QD@08 [facility] Stop: 09/10/22 07:59 Last Admin: 08/13/22 08:54 Dose: 0.25 mg Lamotrigine (Lamotrigine 25 Mg Tab) 50 mg PO HS [facility] Stop: 09/06/22 21:59 Last Admin: 08/12/22 20:58 Dose: 50 mg Magnesium Hydroxide (Magnesium Hydroxide Susp 30 Ml Udc) 30 ml PO DAILY PRN PRN Reason: Constipation Stop: 08/20/22 18:18 Multi-Ingredient Cream (Eucerin Cr 120 Gm Jar) 1 appln EXT DAILY PRN PRN Reason: dry skin over knee Stop: 08/29/22 12:40 Last Admin: 08/10/22 21:49 Dose: 1 appln Ondansetron HCl (Ondansetron 4 Mg Od Tab) 4 mg PO Q6H PRN PRN Reason: Nausea Stop: 08/22/22 09:31 Last Admin: 07/25/22 06:28 Dose: 4 mg Pantoprazole Sodium (Pantoprazole 40 Mg Tab) 40 mg PO BID [facility] Stop: 08/21/22 11:44 Last Admin: 08/13/22 08:54 Dose: 40 mg Sodium Chloride (Sodium Chloride 0.65% Na Soln 45 Ml ([place])) 1 - 2 sprays NA PRN PRN PRN Reason: Nasal Dryness/Congestion Stop: 08/20/22 18:18 Mental Health & Subst Abuse Tx Therapist Name of Therapist: Hubert Martinez Sales Support Rep Name of Sales Support Rep: DANIE Watkins Post Discharge Appointments Primary Care Physician Name Of Family Doctor/PCP: Hubert Mcpherson Specialist Name of Specialist: [facility] - Dr. Avila Phone Number for Specialist: Date of Appointment with Specialist: 09/05/22 Time of Appointment with Specialist: 3:40 PM Specialty Appointment Comment: [address]; [address], [place], [place]
[2022-08-13] MEDS: lamoTRIgine 25 MG TAB PO SCH (20:15)
[2022-08-14] MEDS: clonazePAM 0.25 MG TAB PO SCH (08:43)
[2022-08-14] MEDS: PANTOprazole 40 MG TAB PO SCH ×2 (08:43→20:09)
--- NOTE | 2022-08-14 09:56 | Psychiatric Progress Note ---
Date of Service August 14, 2022 Impression / Recommendations Impression 21 yo female with a history of mood dysregulation, complex trauma hx, worsening depression on transition to living independently as an adult, limited coping skills tested by ACL repair. Diagnostically consistent with recurrent MDD in context of limited coping skills and social isolation and increasingly presents with likely cluster B traits/BPD given chronicity of her SI and very limited coping skills for emotional distress/self-harm urges. MNPR due to social skills, knee recovery, limited distress tolerance 08/14/2022: ongoing mood fluctuation, but slightly more future-oriented. C ontinuing to pursue possible CSRU option for longer term supervised setting given inability to safely function independently and [facility] is in support of this plan. Overall, I spent a total of 65 minutes with this case including review of chart records, direct evaluation of the patient at bedside, counseling the patient, discussion of the patient during clinical rounds, completion of MA-51 applicat ion for CSRU process for referral and documentation in the electronic health record. (1) MDD (major depressive disorder), recurrent episode, severe: (2) Post traumatic stress disorder (PTSD): (3) S/P ACL reconstruction: (4) Intellectual disability: Plan 08/14/22: Continue current medications and tx plan. 08/13/22: Continue current medications and tx plan. 08/12/22: Continue current medications and tx plan. 08/11/22: Continue current medications and tx plan. Ongoing coordination with [facility] regarding potential services for co-morbid intellectual disability. 08/10/22: Taper Klonopin to 0.25mg qd given concerns of disinhibition. 08/09/22: Continue current medications and tx plan. 08/08/2022: Continue current medications and tx plan. 08/07/2022: titrate lamictal to 50mg qhs. 08/04/2022: Abilify maintenna today, awaiting addition input from CM on diversion 08/03/2022: Continue current medications and tx plan. Option for abilify MORELOS tomorrow if she is interested. 08/02/22: Ongoing insight-oriented approach. Continue current medications and tx plan. 08/01/22: Continue with current medications and tx plan. 07/31/22: Continue with current medications and tx plan. EKG tomorrow to reassess QTc. 07/30/22: Increase abilify to 20mg qd. 07/29/22: Continue with current medications and tx plan. 07/28/22: Increase abilify to 15mg tomorrow morning 07/27/22: Continue with current medications and tx plan. 07/26/22: titrate Abilify to 10 mg starting tomorrow 07/25/22: continue daily ekGs to titrate Abilify to 20 mg in intervals. Monitor sedation on Klonopin, gait is steady, will move 2nd dose to hs. CXR for TB clearance for anticipated state hospital referral. 07/24/22: risks/benefits/alternatives reviewed re: Klonopin trial given random breakthrough anxiety. Discussed resuming Abilify oral dosing so can adjust/monitor QTc. Daily EKG ordered. patient agreeable and will start Abilify 5 mg daily today and Klonopin 0.25 mg po BID. She is ambulating well without her brace. consult PT for final exercises. 07/23/22: d/c Buspar as may be having residual serotonergic sensitivity, daily EKG per hospitalist recommendation, repeat labs unremarkable, vitals stable. Zofran prn. Hold Abilify maintenna due to day given QTc. 07/22/22: The patient [facility] on q15 min checks (behavioral with suicide precautions) for safety. The patient will participate in group, recreational, and milieu therapies and will be offered additional individual and family sessions as clinically appropriate. Restarted Buspar on medical floor, repeat EKG in am to determine appropriateness of Abilify maintenna that is due. Hold Zyprexa. She is aware that would not valeriano mmend resume Vistaril or Lexapro. Will offer Buspar 5 mg TID prn as well as frequently requests prn and want to avoid benzos. Restart lamictal as plan of outpatient provider and has never titrated. PT consult as still receiving outpatient PT. Explore possible state hospital referral given need for longer term hospitalization. Inventory Assets Strengths: accepting of services, cooperative with unit routines Needs: improve coping skills, ongoing CM involvement in placement options Suicide Risk Level Suicide Risk Level: High-Moderate (q15 min suicide checks) (labile mood with periods of depression and SI, able to safety contract that she will alert nursing if she feels unable to remain safe or develops SI with plan or intent) Risk Factors Assessment : Yes Do You Have Access To A Gun?: No Health Problems: Yes Mental Health Diagnoses: Yes Substance Use Disorders: No Previous Psychiatric Hospitalization: Yes Protective Factors Assessment Stable Relationships: Yes Interval History Identifying Information BAUTISTA ALLRED is a 21-year-old F who currently lives in [place], has a history of several inpatient stays on 3 S (most recently 07/24), and was admitted on 07/21/22 18:29 on a 201 voluntary commitment s/p medical admission for suicide attempt by OD. Chief Complaint "My knee hurts". Review of Systems Sleep Information Total Hours of Sleep: 5.75 Sleep Comments: early riser- around 0400 Meal Information Percent Meal Consumed - Breakfast: 100 Percent Meal Consumed - Lunch: 100 Percent Meal Consumed - Dinner: 100 Nutrition Comment: pt. reports episode of emesis Subjective Subjective Patient was seen & assessed and interval progress reviewed with treatment team nursing and social work. Continues to have dramatic shifts in mood, did well last evening but then this morning was upset and refusing to attend. Then did with encouragement and mood improved. Was initially reporting good mood in meeting with me and social work then reported worsening depression as she thought about her knee and missing outpatient PT. Offered option for inpatient PT to come see her which she declined. Reviewed CSRU packet and she feels this would be helpful and likes the sound of the program. Slightly more future- oriented. Physical Exam Psychiatric Orientation: alert and oriented x 3 Eye Contact: good eye contact Motor Behavior: no abnormal motor movements Speech: normal rate/rhythm/volume of speech Affect: + labile affect Mood: + depressed mood and + anxious mood Thought Process: + concrete thought process Thought Content: reality based without delusions Suicidal Thoughts: denies suicidal plan; + reports suicidal thoughts (intermittent SI ) Homicidal Thoughts: denies homicidal thoughts Hallucinations: no auditory hallucinations and no visual hallucinations Cognition: attention grossly intact and language grossly intact Estimated Intelligence: + below average estimated intelligence Insight: + limited insight Judgement: + limited judgement Vital Signs (Past 24 Hours) Last Vital Signs Temp 37.1 C 08/13/22 20:00 Pulse 91 H 08/12/22 06:35 Resp 18 08/12/22 06:35 BP 106/72 08/12/22 06:35 Pulse Ox 99 07/29/22 06:20 O2 Del Method 08/07/22 06:00 Results & Data ([facility]) Current Inpatient Medications Current Inpatient Medications: Current Inpatient Medications Acetaminophen (Acetaminophen 325 Mg Tab) 650 mg PO Q4H PRN PRN Reason: Headache or Minor Fever Stop: 08/20/22 18:18 Last Admin: 07/31/22 20:48 Dose: 650 mg Al Hydrox/Mg Hydrox/Simethicone (Aluminum/Magnesium Susp 30 Ml Udc) 30 ml PO Q4H PRN PRN Reason: GI Upset Stop: 08/20/22 18:18 Last Admin: 08/06/22 18:14 Dose: 30 ml Bismuth Subsalicylate (Bismuth Subsalicylate Liqd 236 Ml) 15 ml PO PRN PRN PRN Reason: Loose Stool Stop: 08/20/22 18:18 Last Admin: 07/31/22 13:35 Dose: 15 ml Buspirone HCl (Buspirone 5 Mg Tab) 5 mg PO TID PRN PRN Reason: Anxiety/Agitation Stop: 08/27/22 13:59 Last Admin: 08/12/22 15:06 Dose: 5 mg Clonazepam (Clonazepam 0.25 Mg Tab) 0.25 mg PO QD@08 [facility] Stop: 09/10/22 07:59 Last Admin: 08/14/22 08:43 Dose: 0.25 mg Lamotrigine (Lamotrigine 25 Mg Tab) 50 mg PO HS [facility] Stop: 09/06/22 21:59 Last Admin: 08/13/22 20:15 Dose: 50 mg Magnesium Hydroxide (Magnesium Hydroxide Susp 30 Ml Udc) 30 ml PO DAILY PRN PRN Reason: Constipation Stop: 08/20/22 18:18 Multi-Ingredient Cream (Eucerin Cr 120 Gm Jar) 1 appln EXT DAILY PRN PRN Reason: dry skin over knee Stop: 08/29/22 12:40 Last Admin: 08/10/22 21:49 Dose: 1 appln Ondansetron HCl (Ondansetron 4 Mg Od Tab) 4 mg PO Q6H PRN PRN Reason: Nausea Stop: 08/22/22 09:31 Last Admin: 07/25/22 06:28 Dose: 4 mg Pantoprazole Sodium (Pantoprazole 40 Mg Tab) 40 mg PO BID [facility] Stop: 08/21/22 11:44 Last Admin: 08/14/22 08:43 Dose: 40 mg Sodium Chloride (Sodium Chloride 0.65% Na Soln 45 Ml ([place])) 1 - 2 sprays NA PRN PRN PRN Reason: Nasal Dryness/Congestion Stop: 08/20/22 18:18 Mental Health & Subst Abuse Tx Therapist Name of Therapist: Hubert Martinez Player Manager Name of Player Manager: DANIE Watkins Post Discharge Appointments Primary Care Physician Name Of Family Doctor/PCP: Hubert Mcpherson Specialist [facility] Phone Number for Specialist: Date of Appointment with Specialist: 09/05/22 Time of Appointment with Specialist: 3:40 PM Specialty Appointment Comment: [address]; [address], [place], [place]
[2022-08-14] MEDS: busPIRone 5 MG TAB PO PRN (10:03)
[2022-08-14] MEDS: lamoTRIgine 25 MG TAB PO SCH (20:09)
[2022-08-15] MEDS: clonazePAM 0.25 MG TAB PO SCH (08:03)
[2022-08-15] MEDS: PANTOprazole 40 MG TAB PO SCH ×2 (08:37→22:03)
--- NOTE | 2022-08-15 12:36 | Psychiatric Progress Note ---
Date of Service August 15, 2022 Impression / Recommendations Impression 21 yo female with a history of mood dysregulation, complex trauma hx, worsening depression on transition to living independently as an adult, limited coping skills tested by ACL repair. Diagnostically consistent with recurrent MDD in context of limited coping skills and social isolation and increasingly presents with likely cluster B traits/BPD given chronicity of her SI and very limited coping skills for emotional distress/self-harm urges. MNPR due to social skills, knee recovery, limited distress tolerance 08/15/2022: ongoing mood fluctuation, with periods of depression fluctuating with more elevated mood. Continuing to pursue possible CSRU option for longer term supervised setting given inability to safely function independently and [facility] is in support of this plan. (1) MDD (major depressive disorder), recurrent episode, severe: (2) Post traumatic stress disorder (PTSD): (3) S/P ACL reconstruction: (4) Intellectual disability: Plan 08/15/22: Continue current medications and tx plan. 08/14/22: Continue current medications and tx plan. 08/13/22: Continue current medications and tx plan. 08/12/22: Continue current medications and tx plan. 08/11/22: Continue current medications and tx plan. Ongoing coordination with [facility] regarding potential services for co-morbid intellectual disability. 08/10/22: Taper Klonopin to 0.25mg qd given concerns of disinhibition. 08/09/22: Continue current medications and tx plan. 08/08/2022: Continue current medications and tx plan. 08/07/2022: titrate lamictal to 50mg qhs. 08/04/2022: Abilify darryltenna today, awaiting addition input from CM on diversion 08/03/2022: Continue current medications and tx plan. Option for abilify MORELOS tomorrow if she is interested. 08/02/22: Ongoing insight-oriented approach. Continue current medications and tx plan. 08/01/22: Continue with current medications and tx plan. 07/31/22: Continue with current medications and tx plan. EKG tomorrow to reassess QTc. 07/30/22: Increase abilify to 20mg qd. 07/29/22: Continue with current medications and tx plan. 07/28/22: Increase abilify to 15mg tomorrow morning 07/27/22: Continue with current medications and tx plan. 07/26/22: titrate Abilify to 10 mg starting tomorrow 07/25/22: continue daily ekGs to titrate Abilify to 20 mg in intervals. Monitor sedation on Klonopin, gait is steady, will move 2nd dose to hs. CXR for TB clearance for anticipated state hospital referral. 07/24/22: risks/benefits/alternatives reviewed re: Klonopin trial given random breakthrough anxiety. Discussed resuming Abilify oral dosing so can adjust/monitor QTc. Daily EKG ordered. patient agreeable and will start Abilify 5 mg daily today and Klonopin 0.25 mg po BID. She is ambulating well without her brace. consult PT for final exercises. 07/23/22: d/c Buspar as may be having residual serotonergic sensitivity, daily EKG per hospitalist recommendation, repeat labs unremarkable, vitals stable. Zofran prn. Hold Abilify maintenna due to day given QTc. 07/22/22: The patient was admitted to the [facility] ([facility] mental health unit) on q15 min checks (behavioral with suicide precautions) for safety. The patient will participate in group, recreational, and milieu therapies and will be offered additional individual and family sessions as clinically appropriate. Restarted Buspar on medical floor, repeat EKG in am to determine appropriateness of Abilify maintenna that is due. Hold Zyprexa. She is aware that would not recommend resume Vistaril or Lexapro. Will offer Buspar 5 mg TID prn as well as frequently requests prn and want to avoid benzos. Restart lamictal as plan of outpatient provider and has never titrated. PT consult as still receiving outpatient PT. Explore possible state hospital referral given need for longer term hospitalization. Inventory Assets Strengths: accepting of services, cooperative with unit routines Needs: improve coping skills, ongoing CM involvement in placement options Suicide Risk Level Suicide Risk Level: High-Moderate (q15 min suicide checks) (labile mood with periods of depression and SI, able to safety contract that she will alert landon sing if she feels unable to remain safe or develops SI with plan or intent) Risk Factors Assessment : Yes Do You Have Access To A Gun?: No Health Problems: Yes Mental Health Diagnoses: Yes Substance Use Disorders: No Previous Psychiatric Hospitalization: Yes Protective Factors Assessment Stable Relationships: Yes Interval History Identifying Information BAUTISTA ALLRED is a 21-year-old F who currently lives in [place], has a history of several inpatient stays on 3 S (most recently 07/24), and was admitted on 07/21/22 18:29 on a 201 voluntary commitment s/p medical admission for suicide attempt by OD. Chief Complaint "I'm good-see my new glasses". Review of Systems Sleep Information Total Hours of Sleep: 8 Sleep Comments: early riser- around 0400 Meal Information Percent Meal Consumed - Breakfast: 100 Percent Meal Consumed - Lunch: 100 Percent Meal Consumed - Dinner: 100 Nutrition Comment: pt. reports episode of emesis Subjective Subjective Patient was seen & assessed and interval progress reviewed with treatment team nursing and social work. Mood better this morning after her outpt CM dropped off her new glasses. Denies knee pain today and walking well. Denies any medication side effects. Slept "like a baby" last night. Engaging with process of paperwork for CSRU referral. Physical Exam Psychiatric Orientation: alert and oriented x 3 Eye Contact: good eye contact Motor Behavior: no abnormal motor movements Speech: normal rate/rhythm/volume of speech Affect: euthymic affect and + labile affect Mood: + depressed mood and + anxious mood Thought Process: + concrete thought process Thought Content: reality based without delusions Suicidal Thoughts: denies suicidal plan; + reports suicidal thoughts (intermittent SI ) Homicidal Thoughts: denies homicidal thoughts Hallucinations: no auditory hallucinations and no visual hallucinations Cognition: attention grossly intact and language grossly intact Estimated Intelligence: + below average estimated intelligence Insight: + limited insight Judgement: + limited judgement Vital Signs (Past 24 Hours) Last Vital Signs Temp 36.7 C 08/15/22 06:47 Pulse 95 H 08/15/22 06:48 Resp 18 08/15/22 06:47 BP 89/59 L 08/15/22 06:48 Pulse Ox 99 07/29/22 06:20 O2 Del Method 08/07/22 06:00 Results & Data ([facility]) Current Inpatient Medications Current Inpatient Medications: Current Inpatient Medications Acetaminophen (Acetaminophen 325 Mg Tab) 650 mg PO Q4H PRN PRN Reason: Headache or Minor Fever Stop: 08/20/22 18:18 Last Admin: 07/31/22 20:48 Dose: 650 mg Al Hydrox/Mg Hydrox/Simethicone (Aluminum/Magnesium Susp 30 Ml Udc) 30 ml PO Q4H PRN PRN Reason: GI Upset Stop: 08/20/22 18:18 Last Admin: 08/06/22 18:14 Dose: 30 ml Bismuth Subsalicylate (Bismuth Subsalicylate Liqd 236 Ml) 15 ml PO PRN PRN PRN Reason: Loose Stool Stop: 08/20/22 18:18 Last Admin: 07/31/22 13:35 Dose: 15 ml Buspirone HCl (Buspirone 5 Mg Tab) 5 mg PO TID PRN PRN Reason: Anxiety/Agitation Stop: 08/27/22 13:59 Last Admin: 08/14/22 10:03 Dose: 5 mg Clonazepam (Clonazepam 0.25 Mg Tab) 0.25 mg PO QD@08 [facility] Stop: 09/10/22 07:59 Last Admin: 08/15/22 08:03 Dose: 0.25 mg Lamotrigine (Lamotrigine 25 Mg Tab) 50 mg PO HS [facility] Stop: 09/06/22 21:59 Last Admin: 08/14/22 20:09 Dose: 50 mg Magnesium Hydroxide (Magnesium Hydroxide Susp 30 Ml Udc) 30 ml PO DAILY PRN PRN Reason: Constipation Stop: 08/20/22 18:18 Multi-Ingredient Cream (Eucerin Cr 120 Gm Jar) 1 appln EXT DAILY PRN PRN Reason: dry skin over knee Stop: 08/29/22 12:40 Last Admin: 08/10/22 21:49 Dose: 1 appln Ondansetron HCl (Ondansetron 4 Mg Od Tab) 4 mg PO Q6H PRN PRN Reason: Nausea Stop: 08/22/22 09:31 Last Admin: 07/25/22 06:28 Dose: 4 mg Pantoprazole Sodium (Pantoprazole 40 Mg Tab) 40 mg PO BID [facility] Stop: 08/21/22 11:44 Last Admin: 08/15/22 08:37 Dose: 40 mg Sodium Chloride (Sodium Chloride 0.65% Na Soln 45 Ml ([place])) 1 - 2 sprays NA PRN PRN PRN Reason: Nasal Dryness/Congestion Stop: 08/20/22 18:18 Mental Health & Subst Abuse Tx Therapist Name of Therapist: Hubert Martinez Damage Inside Adjuster Name of Damage Inside Adjuster: DANIE Watkins Post Discharge Appointments Primary Care Physician Name Of Family Doctor/PCP: Hubert Mcpherson Specialist Name of Specialist: [facility] - Dr. Avila Phone Number for Specialist: Date of Appointment with Specialist: 09/05/22 Time of Appointment with Specialist: 3:40 PM Specialty Appointment Comment: [address]; [address], [place], [place]
[2022-08-15] MEDS: lamoTRIgine 25 MG TAB PO SCH (22:02)
[2022-08-16] MEDS: clonazePAM 0.25 MG TAB PO SCH (08:13)
[2022-08-16] MEDS: PANTOprazole 40 MG TAB PO SCH ×2 (08:14→20:41)
--- NOTE | 2022-08-16 08:50 | Psychiatric Progress Note ---
Date of Service August 16, 2022 Impression / Recommendations Impression 21 yo female with a history of mood dysregulation, complex trauma hx, worsening depression on transition to living independently as an adult, limited coping skills tested by ACL repair. Diagnostically consistent with recurrent MDD in context of limited coping skills and social isolation and increasingly presents with likely cluster B traits/BPD given chronicity of her SI and very limited coping skills for emotional distress/self-harm urges. MNPR due to social skills, knee recovery, limited distress tolerance 08/16/2022: ongoing mood fluctuation, more depressed today and with SI. Co ntinuing to pursue possible CSRU option for longer term supervised setting given inability to safely function independently and [facility] is in support of this plan. (1) MDD (major depressive disorder), recurrent episode, severe: (2) Post traumatic stress disorder (PTSD): (3) S/P ACL reconstruction: (4) Intellectual disability: Plan 08/16/22: Discontinue Klonopin as may be contributing to daytime fatigue. 08/15/22: Continue current medications and tx plan. 08/14/22: Continue current medications and tx plan. 08/13/22: Continue current medications and tx plan. 08/12/22: Continue current medications and tx plan. 08/11/22: Continue current medications and tx plan. Ongoing coordination with [facility] regarding potential services for co-morbid intellectual disability. 08/10/22: Taper Klonopin to 0.25mg qd given concerns of disinhibition. 08/09/22: Continue current medications and tx plan. 08/08/2022: Continue current medications and tx plan. 08/07/2022: titrate lamictal to 50mg qhs. 08/04/2022: Abilify maintenna today, awaiting addition input from CM on diversion 08/03/2022: Continue current medications and tx plan. Option for abilify MORELOS tomorrow if she is interested. 08/02/22: Ongoing insight-oriented approach. Continue current medications and tx plan. 08/01/22: Continue with current medications and tx plan. 07/31/22: Continue with current medications and tx plan. EKG tomorrow to reassess QTc. 07/30/22: Increase abilify to 20mg qd. 07/29/22: Continue with current medications and tx plan. 07/28/22: Increase abilify to 15mg tomorrow morning 07/27/22: Continue with current medications and tx plan. 07/26/22: titrate Abilify to 10 mg starting tomorrow 07/25/22: continue daily ekGs to titrate Abilify to 20 mg in intervals. Monitor sedation on Klonopin, gait is steady, will move 2nd dose to hs. CXR for TB clearance for anticipated state hospital referral. 07/24/22: risks/benefits/alternatives reviewed re: Klonopin trial given random breakthrough anxiety. Discussed resuming Abilify oral dosing so can adjust/monitor QTc. Daily EKG ordered. patient agreeable and will start Abilify 5 mg daily today and Klonopin 0.25 mg po BID. She is ambulating well without her brace. consult PT for final exercises. 07/23/22: d/c Buspar as may be having residual serotonergic sensitivity, daily EKG per hospitalist recommendation, repeat labs unremarkable, vitals stable. Zofran prn. Hold Abilify maintenna due to day given QTc. 07/22/22: The patient was admitted to the [facility] ([facility] mental health unit) on q15 min checks (behavioral with suicide precautions) for safety. The patient will participate in group, recreational, and milieu therapies and will be offered additional individual and family sessions as clinically appropriate. Restarted Buspar on medical floor, repeat EKG in am to determine appropriateness of Abilify maintenna that is due. Hold Zyprexa. She is aware that would not recommend resume Vistaril or Lexapro. Will offer Buspar 5 mg TID prn as well as frequently requests prn and want to avoid benzos. Restart lamictal as plan of outpatient provider and has never titrated. PT consult as still receiving outpatient PT. Explore possible state hospital referral given need for longer term hospitalization. Inventory Assets Strengths: accepting of services, cooperative with unit routines Needs: improve coping skills, ongoing CM involvement in placement options Suicide Risk Level Suicide Risk Level: High-Moderate (q15 min suicide checks) (labile mood with periods of depression and SI, able to safety contract that she will alert nursing if she feels unable to remain safe or develops SI with plan or intent) Risk Factors Assessment : Yes Do You Have Access To A Gun?: No Health Problems: Yes Mental Health Diagnoses: Yes Substance Use Disorders: No Previous Psychiatric Hospitalization: Yes Protective Factors Assessment Stable Relationships: Yes Interval History Identifying Information BAUTISTA ALLRED is a 21-year-old F who currently lives in [place], has a history of several inpatient stays on 3 S (most recently 07/24), and was admitted on 07/21/22 18:29 on a 201 voluntary commitment s/p medical admission for suicide attempt by OD. Chief Complaint "I'm just sad and sleepy". Review of Systems Sleep Information Total Hours of Sleep: 7.25 Sleep Comments: early riser- around 0400 Meal Information Percent Meal Consumed - Breakfast: 100 Percent Meal Consumed - Lunch: 100 Percent Meal Consumed - Dinner: 100 Nutrition Comment: Subjective Subjective Patient was seen & assessed and interval progress reviewed with treatment team nursing and social work. More irritable yesterday evening. Slept well but today isolative to her room, more irritable and declining all groups. Refused to speak with social work. With me laid in bed and made minimal eye contact. Required encouragement to engage. Told me she's thinking about her friend who by fletcher abebe and this makes her sad. Endorses SI but no plan. Physical Exam Psychiatric Orientation: alert and oriented x 3 Eye Contact: + poor eye contact Motor Behavior: no abnormal motor movements Speech: normal rate/rhythm/volume of speech Affect: + depressed affect and + labile affect Mood: + depressed mood and + anxious mood Thought Process: + concrete thought process Thought Content: reality based without delusions Suicidal Thoughts: denies suicidal plan; + reports suicidal thoughts (intermittent SI ) Homicidal Thoughts: denies homicidal thoughts Hallucinations: no auditory hallucinations and no visual hallucinations Cognition: attention grossly intact and language grossly intact Estimated Intelligence: + below average estimated intelligence Insight: + limited insight Judgement: + limited judgement Vital Signs (Past 24 Hours) Last Vital Signs Temp 36.6 C 08/16/22 06:43 Pulse 89 08/16/22 06:43 Resp 16 08/16/22 06:43 BP 100/68 08/16/22 06:43 Pulse Ox 99 07/29/22 06:20 O2 Del Method 08/07/22 06:00 Results & Data ([facility]) Current Inpatient Medications Current Inpatient Medications: Current Inpatient Medications Acetaminophen (Acetaminophen 325 Mg Tab) 650 mg PO Q4H PRN PRN Reason: Headache or Minor Fever Stop: 08/20/22 18:18 Last Admin: 07/31/22 20:48 Dose: 650 mg Al Hydrox/Mg Hydrox/Simethicone (Aluminum/Magnesium Susp 30 Ml Udc) 30 ml PO Q4H PRN PRN Reason: GI Upset Stop: 08/20/22 18:18 Last Admin: 08/06/22 18:14 Dose: 30 ml Bismuth Subsalicylate (Bismuth Subsalicylate Liqd 236 Ml) 15 ml PO PRN PRN PRN Reason: Loose Stool Stop: 08/20/22 18:18 Last Admin: 07/31/22 13:35 Dose: 15 ml Buspirone HCl (Buspirone 5 Mg Tab) 5 mg PO TID PRN PRN Reason: Anxiety/Agitation Stop: 08/27/22 13:59 Last Admin: 08/14/22 10:03 Dose: 5 mg Clonazepam (Clonazepam 0.25 Mg Tab) 0.25 mg PO QD@08 [facility] Stop: 09/10/22 07:59 Last Admin: 08/16/22 08:13 Dose: 0.25 mg Lamotrigine (Lamotrigine 25 Mg Tab) 50 mg PO HS [facility] Stop: 09/06/22 21:59 Last Admin: 08/15/22 22:02 Dose: 50 mg Magnesium Hydroxide (Magnesium Hydroxide Susp 30 Ml Udc) 30 ml PO DAILY PRN PRN Reason: Constipation Stop: 08/20/22 18:18 Multi-Ingredient Cream (Eucerin Cr 120 Gm Jar) 1 appln EXT DAILY PRN PRN Reason: dry skin over knee Stop: 08/29/22 12:40 Last Admin: 08/10/22 21:49 Dose: 1 appln Ondansetron HCl (Ondansetron 4 Mg Od Tab) 4 mg PO Q6H PRN PRN Reason: Nausea Stop: 08/22/22 09:31 Last Admin: 07/25/22 06:28 Dose: 4 mg Pantoprazole Sodium (Pantoprazole 40 Mg Tab) 40 mg PO BID [facility] Stop: 08/21/22 11:44 Last Admin: 08/16/22 08:14 Dose: 40 mg Sodium Chloride (Sodium Chloride 0.65% Na Soln 45 Ml ([place])) 1 - 2 sprays NA PRN PRN PRN Reason: Nasal Dryness/Congestion Stop: 08/20/22 18:18 Mental Health & Subst Abuse Tx Therapist Name of Therapist: Hubert Martinez Remedy Developer Name of Remedy Developer: DANIE Watkins Post Discharge Appointments Primary Care Physician Name Of Family Doctor/PCP: Hubert Mcpherson Specialist Name of Specialist: [facility] - Dr. Avila Phone Number for Specialist: Date of Appointment with Specialist: 09/05/22 Time of Appointment with Specialist: 3:40 PM Specialty Appointment Comment: [address]; [address], [place], [place]
[2022-08-16] MEDS: lamoTRIgine 25 MG TAB PO SCH (20:41)
--- NOTE | 2022-08-17 08:45 | Psychiatric Progress Note ---
Date of Service August 17, 2022 Impression / Recommendations Impression 21 yo female with a history of mood dysregulation, complex trauma hx, worsening depression on transition to living independently as an adult, limited coping skills tested by ACL repair. Diagnostically consistent with recurrent MDD in context of limited coping skills and social isolation and increasingly presents with likely cluster B traits/BPD given chronicity of her SI and very limited coping skills for emotional distress/self-harm urges. MNPR due to social skills, knee recovery, limited distress tolerance 08/17/2022: ongoing mood fluctuation, does seem to be doing slightly better off Klonopin though hard to determine if normal fluctuation or due to medication disinhibition. Continuing to pursue possible [facility] option for longer term supervised setting given inability to safely function independently and [facility] is in support of this plan. (1) MDD (major depressive disorder), recurrent episode, severe: (2) Post traumatic stress disorder (PTSD): (3) S/P ACL reconstruction: (4) Intellectual disability: Plan 08/17/22: Continue current medications and tx plan. 08/16/22: Discontinue Klonopin as may be contributing to daytime fatigue. 08/15/22: Continue current medications and tx plan. 08/14/22: Continue current medications and tx plan. 08/13/22: Continue current medications and tx plan. 08/12/22: Continue current medications and tx plan. 08/11/22: Continue current medications and tx plan. Ongoing coordination with [facility] regarding potential services for co-morbid intellectual disability. 08/10/22: Taper Klonopin to 0.25mg qd given concerns of disinhibition. 08/09/22: Continue current medications and tx plan. 08/08/2022: Continue current medications and tx plan. 08/07/2022: titrate lamictal to 50mg qhs. 08/04/2022: Abilify maintenna today, awaiting addition input from CM on diversion 08/03/2022: Continue current medications and tx plan. Option for abilify MORELOS tomorrow if she is interested. 08/02/22: Ongoing insight-oriented approach. Continue current medications and tx plan. 08/01/22: Continue with current medications and tx plan. 07/31/22: Continue with current medications and tx plan. EKG tomorrow to reassess QTc. 07/30/22: Increase abilify to 20mg qd. 07/29/22: Continue with current medications and tx plan. 07/28/22: Increase abilify to 15mg tomorrow morning 07/27/22: Continue with current medications and tx plan. 07/26/22: titrate Abilify to 10 mg starting tomorrow 07/25/22: continue daily ekGs to titrate Abilify to 20 mg in intervals. Monitor sedation on Klonopin, gait is steady, will move 2nd dose to hs. CXR for TB clearance for anticipated state hospital referral. 07/24/22: risks/benefits/alternatives reviewed re: Klonopin trial given random breakthrough anxiety. Discussed resuming Abilify oral dosing so can adjust/monitor QTc. Daily EKG ordered. patient agreeable and will start Abilify 5 mg daily today and Klonopin 0.25 mg po BID. She is ambulating well without her brace. consult PT for final exercises. 07/23/22: d/c Buspar as may be having residual serotonergic sensitivity, daily EKG per hospitalist recommendation, repeat labs unremarkable, vitals stable. Zofran prn. Hold Abilify maintenna due to day given QTc. 07/22/22: [facility]) on q15 min checks (behavioral with suicide precautions) for safety. The patient will participate in group, recreational, and milieu therapies and will be offered additional individual and family sessions as clinically appropriate. Restarted Buspar on medical floor, repeat EKG in am to determine appropriateness of Abilify maintenna that is due. Hold Zyprexa. She is aware that would not recommend resume Vistaril or Lexapro. Will offer Buspar 5 mg TID prn as well as frequently requests prn and want to avoid benzos. Restart lamictal as plan of outpatient provider and has never titrated. PT consult as still receiving outpatient PT. Explore possible state hospital referral given need for longer term hospitalization. Inventory Assets Strengths: accepting of services, cooperative with unit routines Needs: improve coping skills, ongoing CM involvement in placement options Suicide Risk Level Suicide Risk Level: High-Moderate (q15 min suicide checks) (labile mood with periods of depression and SI, able to safety contract that she will alert fabi negro if she feels unable to remain safe or develops SI with plan or intent) Risk Factors Assessment : Yes Do You Have Access To A Gun?: No Health Problems: Yes Mental Health Diagnoses: Yes Substance Use Disorders: No Previous Psychiatric Hospitalization: Yes Protective Factors Assessment Stable Relationships: Yes Interval History Identifying Information BAUTISTA ALLRED is a 21-year-old F who currently lives in [place], has a history of several inpatient stays on [facility] S (most recently 07/24), and was admitted on 07/21/22 18:29 on a 201 voluntary commitment s/p medical admission for suicide attempt by OD. Chief Complaint "I'm good". Review of Systems Sleep Information Total Hours of Sleep: 8.25 Sleep Comments: early riser- around 0400 Meal Information Percent Meal Consumed - Breakfast: 100 Percent Meal Consumed - Lunch: 100 Percent Meal Consumed - Dinner: 100 Subjective Subjective Patient was seen & assessed and interval progress reviewed with treatment team nursing and social work. Last evening less isolative and attended groups. Was telling social work last night "I've never been happy". This morning was initially in a positive mood and very happy when I saw her reporting she no longer felt sad but could not say what had changed. rather reflected that last night "I was just down and sad" but that today she was "focused on doing what I need to". However, about 30 minutes later was once again very upset and isolative to her room and reporting depressed mood and would not engage with any coping strategies. Physical Exam Psychiatric Orientation: alert and oriented x 3 Eye Contact: good eye contact Motor Behavior: no abnormal motor movements Speech: normal rate/rhythm/volume of speech Affect: euthymic affect, + depressed affect and + labile affect Mood: + depressed mood and + anxious mood Thought Process: + concrete thought process Thought Content: reality based without delusions Suicidal Thoughts: denies suicidal plan; + reports suicidal thoughts (intermittent SI ) Homicidal Thoughts: denies homicidal thoughts Hallucinations: no auditory hallucinations and no visual hallucinations Cognition: attention grossly intact and language grossly intact Estimated Intelligence: + below average estimated intelligence Insight: + limited insight Judgement: + limited judgement Vital Signs (Past 24 Hours) Last Vital Signs Temp 36.9 C 08/17/22 06:36 Pulse 88 08/17/22 06:37 Resp 16 08/17/22 06:36 BP 105/72 08/17/22 06:37 Pulse Ox 99 07/29/22 06:20 O2 Del Method 08/07/22 06:00 Results & Data ([facility]) Current Inpatient Medications Current Inpatient Medications: Current Inpatient Medications Acetaminophen (Acetaminophen 325 Mg Tab) 650 mg PO Q4H PRN PRN Reason: Headache or Minor Fever Stop: 08/20/22 18:18 Last Admin: 07/31/22 20:48 Dose: 650 mg Al Hydrox/Mg Hydrox/Simethicone (Aluminum/Magnesium Susp 30 Ml Udc) 30 ml PO Q4H PRN PRN Reason: GI Upset Stop: 08/20/22 18:18 Last Admin: 08/06/22 18:14 Dose: 30 ml Bismuth Subsalicylate (Bismuth Subsalicylate Liqd 236 Ml) 15 ml PO PRN PRN PRN Reason: Loose Stool Stop: 08/20/22 18:18 Last Admin: 07/31/22 13:35 Dose: 15 ml Buspirone HCl (Buspirone 5 Mg Tab) 5 mg PO TID PRN PRN Reason: Anxiety/Agitation Stop: 08/27/22 13:59 Last Admin: 08/14/22 10:03 Dose: 5 mg Lamotrigine (Lamotrigine 25 Mg Tab) 50 mg PO HS [facility] Stop: 09/06/22 21:59 Last Admin: 08/16/22 20:41 Dose: 50 mg Magnesium Hydroxide (Magnesium Hydroxide Susp 30 Ml Udc) 30 ml PO DAILY PRN PRN Reason: Constipation Stop: 08/20/22 18:18 Multi-Ingredient Cream (Eucerin Cr 120 Gm Jar) 1 appln EXT DAILY PRN PRN Reason: dry skin over knee Stop: 08/29/22 12:40 Last Admin: 08/10/22 21:49 Dose: 1 appln Ondansetron HCl (Ondansetron 4 Mg Od Tab) 4 mg PO Q6H PRN PRN Reason: Nausea Stop: 08/22/22 09:31 Last Admin: 07/25/22 06:28 Dose: 4 mg Pantoprazole Sodium (Pantoprazole 40 Mg Tab) 40 mg PO BID [facility] Stop: 08/21/22 11:44 Last Admin: 08/16/22 20:41 Dose: 40 mg Sodium Chloride (Sodium Chloride 0.65% Na Soln 45 Ml ([place])) 1 - 2 sprays NA PRN PRN PRN Reason: Nasal Dryness/Congestion Stop: 08/20/22 18:18 Mental Health & Subst Abuse Tx Therapist Name of Therapist: Hubert Martinez Director Of Undergraduate Admissions Name of Director Of Undergraduate Admissions: DANIE Watkins Post Discharge Appointments Primary Care Physician Name Of Family Doctor/PCP: Hubert Mcpherson Specialist Name of Specialist: [facility] - Dr. Avila Phone Number for Specialist: Date of Appointment with Specialist: 09/05/22 Time of Appointment with Specialist: 3:40 PM Specialty Appointment Comment: [address]; [address], [place], [place]
[2022-08-17] MEDS: PANTOprazole 40 MG TAB PO SCH ×2 (08:59→21:36)
[2022-08-17] MEDS: ACETAMINOPHEN 325 MG TAB PO PRN ×2 (13:25→17:58)
[2022-08-17] MEDS: lamoTRIgine 25 MG TAB PO SCH (21:36)
[2022-08-18] MEDS: PANTOprazole 40 MG TAB PO SCH ×2 (08:22→20:15)
--- NOTE | 2022-08-18 08:56 | Psychiatric Progress Note ---
Date of Service August 18, 2022 Impression / Recommendations Impression 21 yo female with a history of mood dysregulation, complex trauma hx, worsening depression on transition to living independently as an adult, limited coping skills tested by ACL repair. Diagnostically consistent with recurrent MDD in context of limited coping skills and social isolation and increasingly presents with likely cluster B traits/BPD given chronicity of her SI and very limited coping skills for emotional distress/self-harm urges. MNPR due to social skills, knee recovery, limited distress tolerance 08/18/2022: ongoing mood fluctuation, some anxiety today about what CSRU might be about but also excited about possibility. Continuing to pursue possible [facility] option for longer term supervised setting given inability to safely function independently and [facility] is in support of this plan. (1) MDD (major depressive disorder), recurrent episode, severe: (2) Post traumatic stress disorder (PTSD): (3) S/P ACL reconstruction: (4) Intellectual disability: Plan 08/18/22: Continue current medications and tx plan. 08/17/22: Continue current medications and tx plan. 08/16/22: Discontinue Klonopin as may be contributing to daytime fatigue. 08/15/22: Continue current medications and tx plan. 08/14/22: Continue current medications and tx plan. 08/13/22: Continue current medications and tx plan. 08/12/22: Continue current medications and tx plan. 08/11/22: Continue current medications and tx plan. Ongoing coordination with [facility] regarding potential services for co-morbid intellectual disability. 08/10/22: Taper Klonopin to 0.25mg qd given concerns of disinhibition. 08/09/22: Continue current medications and tx plan. 08/08/2022: Continue current medications and tx plan. 08/07/2022: titrate lamictal to 50mg qhs. 08/04/2022: Abilify maintenna today, awaiting addition input from CM on diversion 08/03/2022: Continue current medications and tx plan. Option for abilify MORELOS tomorrow if she is interested. 08/02/22: Ongoing insight-oriented approach. Continue current medications and tx plan. 08/01/22: Continue with current medications and tx plan. 07/31/22: Continue with current medications and tx plan. EKG tomorrow to reassess QTc. 07/30/22: Increase abilify to 20mg qd. 07/29/22: Continue with current medications and tx plan. 07/28/22: Increase abilify to 15mg tomorrow morning 07/27/22: Continue with current medications and tx plan. 07/26/22: titrate Abilify to 10 mg starting tomorrow 07/25/22: continue daily ekGs to titrate Abilify to 20 mg in intervals. Monitor sedation on Klonopin, gait is steady, will move 2nd dose to hs. CXR for TB clearance for anticipated state hospital referral. 07/24/22: risks/benefits/alternatives reviewed re: Klonopin trial given random breakthrough anxiety. Discussed resuming Abilify oral dosing so can adjust/monitor QTc. Daily EKG ordered. patient agreeable and will start Abilify 5 mg daily today and Klonopin 0.25 mg po BID. She is ambulating well without her brace. consult PT for final exercises. 07/23/22: d/c Buspar as may be having residual serotonergic sensitivity, daily EKG per hospitalist recommendation, repeat labs unremarkable, vitals stable. Zofran prn. Hold Abilify maintenna due to day given QTc. 07/22/22: [facility] on q15 min checks (behavioral with suicide precautions) for safety. The patient will participate in group, recreational, and milieu therapies and will be offered additional individual and family sessions as clinically appropriate. Restarted Buspar on medical floor, repeat EKG in am to determine appropriateness of Abilify maintenna that is due. Hold Zyprexa. She is aware that would not recommend resume Vistaril or Lexapro. Will offer Buspar 5 mg TID prn as well as frequently requests prn and want to avoid benzos. Restart lamictal as plan of outpatient provider and has never titrated. PT consult as still receiving outpatient PT. Explore possible state hospital referral given need for longer term hospitalization. Inventory Assets Strengths: accepting of services, cooperative with unit routines Needs: improve coping skills, ongoing CM involvement in placement options Suicide Risk Level Suicide Risk Level: Moderate (q15 min suicide checks) (labile mood with periods of depression and SI, able to safety contract that she will alert nursing if she feels unable to remain safe or develops SI with plan or intent) Risk Factors Assessment : Yes Do You Have Access To A Gun?: No Health Problems: Yes Mental Health Diagnoses: Yes Substance Use Disorders: No Previous Psychiatric Hospitalization: Yes Protective Factors Assessment Stable Relationships: Yes Interval History Identifying Information BAUTISTA ALLRED is a 21-year-old F who currently lives in [place], has a history of several inpatient stays on 3 S (most recently 07/24), and was admitted on 07/21/22 18:29 on a 201 voluntary commitment s/p medical admission for suicide attempt by OD. Chief Complaint "I'm ok". Review of Systems Sleep Information Total Hours of Sleep: 6.5 Sleep Comments: early riser- around 0400 Meal Information Percent Meal Consumed - Breakfast: 100 Percent Meal Consumed - Lunch: 100 Percent Meal Consumed - Dinner: 100 Subjective Subjective Patient was seen & assessed and interval progress reviewed with treatment team nursing and social work. Had some hip pain yesterday. Mood continues to fluctuate. Went to a few groups. Today more focused on what the [facility] looks like and thinking about upcoming call on Thursday. Physical Exam Psychiatric Orientation: alert and oriented x 3 Eye Contact: good eye contact Motor Behavior: no abnormal motor movements Speech: normal rate/rhythm/volume of speech Affect: + labile affect Mood: + anxious mood Thought Process: + concrete thought process Thought Content: reality based without delusions Suicidal Thoughts: denies suicidal thoughts (intermittent SI ) Homicidal Thoughts: denies homicidal thoughts Hallucinations: no auditory hallucinations and no visual hallucinations Cognition: attention grossly intact and language grossly intact Estimated Intelligence: + below average estimated intelligence Insight: + limited insight Judgement: + limited judgement Vital Signs (Past 24 Hours) Last Vital Signs Temp 36.3 C L 08/17/22 20:00 Pulse 88 08/17/22 06:37 Resp 16 08/17/22 06:36 BP 105/72 08/17/22 06:37 Pulse Ox 99 07/29/22 06:20 O2 Del Method 08/07/22 06:00 Results & Data (U) Current Inpatient Medications Current Inpatient Medications: Current Inpatient Medications Acetaminophen (Acetaminophen 325 Mg Tab) 650 mg PO Q4H PRN PRN Reason: Headache or Minor Fever Stop: 08/20/22 18:18 Last Admin: 08/17/22 17:58 Dose: 650 mg Al Hydrox/Mg Hydrox/Simethicone (Aluminum/Magnesium Susp 30 Ml Udc) 30 ml PO Q4H PRN PRN Reason: GI Upset Stop: 08/20/22 18:18 Last Admin: 08/06/22 18:14 Dose: 30 ml Bismuth Subsalicylate (Bismuth Subsalicylate Liqd 236 Ml) 15 ml PO PRN PRN PRN Reason: Loose Stool Stop: 08/20/22 18:18 Last Admin: 07/31/22 13:35 Dose: 15 ml Buspirone HCl (Buspirone 5 Mg Tab) 5 mg PO TID PRN PRN Reason: Anxiety/Agitation Stop: 08/27/22 13:59 Last Admin: 08/14/22 10:03 Dose: 5 mg Lamotrigine (Lamotrigine 25 Mg Tab) 50 mg PO HS [facility] Stop: 09/06/22 21:59 Last Admin: 08/17/22 21:36 Dose: 50 mg Magnesium Hydroxide (Magnesium Hydroxide Susp 30 Ml Udc) 30 ml PO DAILY PRN PRN Reason: Constipation Stop: 08/20/22 18:18 Multi-Ingredient Cream (Eucerin Cr 120 Gm Jar) 1 appln EXT DAILY PRN PRN Reason: dry skin over knee Stop: 08/29/22 12:40 Last Admin: 08/10/22 21:49 Dose: 1 appln Ondansetron HCl (Ondansetron 4 Mg Od Tab) 4 mg PO Q6H PRN PRN Reason: Nausea Stop: 08/22/22 09:31 Last Admin: 07/25/22 06:28 Dose: 4 mg Pantoprazole Sodium (Pantoprazole 40 Mg Tab) 40 mg PO BID [facility] Stop: 08/21/22 11:44 Last Admin: 08/18/22 08:22 Dose: 40 mg Sodium Chloride (Sodium Chloride 0.65% Na Soln 45 Ml ([place])) 1 - 2 sprays NA PRN PRN PRN Reason: Nasal Dryness/Congestion Stop: 08/20/22 18:18 Mental Health & Subst Abuse Tx Therapist Name of Therapist: Hubert Martinez Bill Checker Name of Bill Checker: DANIE Watkins Post Discharge Appointments Primary Care Physician Name Of Family Doctor/PCP: Hubert Mcpherson Specialist Name of Specialist: [facility] Orthopedics - Dr. Avila Phone Number for Specialist: Date of Appointment with Specialist: 09/05/22 Time of Appointment with Specialist: 3:40 PM Specialty Appointment Comment: [address]; [address], [place], [place]
[2022-08-18] MEDS: ACETAMINOPHEN 325 MG TAB PO PRN ×2 (10:57→17:43)
[2022-08-18] MEDS: busPIRone 5 MG TAB PO PRN (17:29)
[2022-08-18] MEDS: lamoTRIgine 25 MG TAB PO SCH (20:15)
[2022-08-19] MEDS: PANTOprazole 40 MG TAB PO SCH ×2 (08:34→20:28)
--- NOTE | 2022-08-19 08:34 | Psychiatric Progress Note ---
Date of Service August 19, 2022 Impression / Recommendations Impression 21 yo female with a history of mood dysregulation, complex trauma hx, worsening depression on transition to living independently as an adult, limited coping skills tested by ACL repair. Diagnostically consistent with recurrent MDD in context of limited coping skills and social isolation and increasingly presents with likely cluster B traits/BPD given chronicity of her SI and very limited coping skills for emotional distress/self-harm urges. MNPR due to social skills, knee recovery, limited distress tolerance 08/19/2022: ongoing mood fluctuation, increased anxiety last night with panic attack, suspect likely due to anticipation of [facility] meeting tomorrow and potential for upcoming transition. Since no longer requiring scheduled Klonopin will add prn dose for case of future panic attacks. Continuing to pursue possible [facility] option for longer term supervised setting given inability to safely function independently and [facility] is in support of this plan. Re-ordered all of her scheduled and prn medications as she is approaching 30 days of admission when medication orders . Will be due for lamictal dose increase on 08/22/2022. (1) MDD (major depressive disorder), recurrent episode, severe: (2) Post traumatic stress disorder (PTSD): (3) S/P ACL reconstruction: (4) Intellectual disability: Plan 08/19/22: Add KLonopin 0.25mg daily prn for panic attacks. 08/18/22: Continue current medications and tx plan. 08/17/22: Continue current medications and tx plan. 08/16/22: Discontinue Klonopin as may be contributing to daytime fatigue. 08/15/22: Continue current medications and tx plan. 08/14/22: Continue current medications and tx plan. 08/13/22: Continue current medications and tx plan. 08/12/22: Continue current medications and tx plan. 08/11/22: Continue current medications and tx plan. Ongoing coordination with [facility] regarding potential services for co-morbid intellectual disability. 08/10/22: Taper Klonopin to 0.25mg qd given concerns of disinhibition. 08/09/22: Continue current medications and tx plan. 08/08/2022: Continue current medications and tx plan. 08/07/2022: titrate lamictal to 50mg qhs. 08/04/2022: [facility] today, awaiting addition input from CM on diversion 08/03/2022: Continue current medications and tx plan. Option for abilify MORELOS tomorrow if she is interested. 08/02/22: Ongoing insight-oriented approach. Continue current medications and tx plan. 08/01/22: Continue with current medications and tx plan. 07/31/22: Continue with current medications and tx plan. EKG tomorrow to reassess QTc. 07/30/22: Increase abilify to 20mg qd. 07/29/22: Continue with current medications and tx plan. 07/28/22: Increase abilify to 15mg tomorrow morning 07/27/22: Continue with current medications and tx plan. 07/26/22: titrate Abilify to 10 mg starting tomorrow 07/25/22: continue daily ekGs to titrate Abilify to 20 mg in intervals. Monitor sedation on Klonopin, gait is steady, will move 2nd dose to hs. CXR for TB clearance for anticipated [facility] referral. 07/24/22: risks/benefits/alternatives reviewed re: Klonopin trial given random breakthrough anxiety. Discussed resuming Abilify oral dosing so can adjust/monitor QTc. Daily EKG ordered. patient agreeable and will start Abilify 5 mg daily today and Klonopin 0.25 mg po BID. She is ambulating well without her brace. consult PT for final exercises. 07/23/22: d/c Buspar as may be having residual serotonergic sensitivity, daily EKG per hospitalist recommendation, repeat labs unremarkable, vitals stable. Zofran prn. Hold Abilify maintenna due to day given QTc. 07/22/22: The patient was admitted to the [facility] ([facility] mental health unit) on q15 min checks (behavioral with suicide precautions) for safety. The patient will participate in group, recreational, and milieu therapies and will be offered additional individual and family sessions as clinically appropriate. Restarted Buspar on medical floor, repeat EKG in am to determine appropriateness of Abilify maintenna that is due. Hold Zyprexa. She is aware that would not recommend resume Vistaril or Lexapro. Will offer Buspar 5 mg TID prn as well as frequently requests prn and want to avoid benzos. Restart lamictal as plan of outpatient provider and has never titrated. PT consult as still receiving outpatient PT. Explore possible state hospital referral given need for longer term hospitalization. Inventory Assets Strengths: accepting of services, cooperative with unit routines Needs: improve coping skills, ongoing CM involvement in placement options Suicide Risk Level Suicide Risk Level: Moderate (q15 min suicide checks) (labile mood with periods of depression and SI, able to safety contract that she will alert nursing if she feels unable to remain safe or develops SI with plan or intent) Risk Factors Assessment : Yes Do You Have Access To A Gun?: No Health Problems: Yes Mental Health Diagnoses: Yes Substance Use Disorders: No Previous Psychiatric Hospitalization: Yes Protective Factors Assessment Stable Relationships: Yes Interval History Identifying Information BAUTISTA ALLRED is a 21-year-old F who currently lives in [place], has a history of several inpatient stays on 3 S (most recently 07/24), and was admitted on 18:29 on a 201 voluntary commitment s/p medical admission for suicide attempt by OD. Chief Complaint "I had real bad anxiety last night, I was crying and it hurt my whole body". Review of Systems Sleep Information Total Hours of Sleep: 8.25 Sleep Comments: Meal Information Percent Meal Consumed - Breakfast: 100 Percent Meal Consumed - Lunch: 100 Percent Meal Consumed - Dinner: 100 Subjective Subjective Patient was seen & assessed and interval progress reviewed with treatment team nursing and social work. Went to evening groups but more labile with some anxiety last night. Finds it hard to see other patients admitted and discharged before her. But future-focused on CSRU meeting tomorrow. Having some intermittent bilateral hip pain that responds well to tylenol that has been present since she had her knee surgery. Today states "good" mood but becomes close to tears when describing distress from panic attack last night. [place] a lot of physical symptoms, isn't sure what precipitated it. Received prn buspar which she found helpful. Reviewed option to have prn Klonopin for panic attack which she thinks could be helpful and would like to try. Physical Exam Psychiatric Orientation: alert and oriented x 3 Eye Contact: good eye contact Motor Behavior: no abnormal motor movements Speech: normal rate/rhythm/volume of speech Affect: + labile affect Mood: + anxious mood Thought Process: + concrete thought process Thought Content: reality based without delusions Suicidal Thoughts: denies suicidal thoughts (intermittent SI ) Homicidal Thoughts: denies homicidal thoughts Hallucinations: no auditory hallucinations and no visual hallucinations Cognition: attention grossly intact and language grossly intact Estimated Intelligence: + below average estimated intelligence Insight: + limited insight Judgement: + limited judgement Vital Signs (Past 24 Hours) Last Vital Signs Temp 37.1 C 08/18/22 19:42 Pulse 88 08/17/22 06:37 Resp 16 08/17/22 06:36 BP 105/72 08/17/22 06:37 Pulse Ox 99 07/29/22 06:20 O2 Del Method 08/07/22 06:00 Results & Data ([facility]) Current Inpatient Medications Current Inpatient Medications: Current Inpatient Medications Acetaminophen (Acetaminophen 325 Mg Tab) 650 mg PO Q4H PRN PRN Reason: Headache or Minor Fever Stop: 08/20/22 18:18 Last Admin: 08/18/22 17:43 Dose: 650 mg Al Hydrox/Mg Hydrox/Simethicone (Aluminum/Magnesium Susp 30 Ml Udc) 30 ml PO Q4H PRN PRN Reason: GI Upset Stop: 08/20/22 18:18 Last Admin: 08/06/22 18:14 Dose: 30 ml Bismuth Subsalicylate (Bismuth Subsalicylate Liqd 236 Ml) 15 ml PO PRN PRN PRN Reason: Loose Stool Stop: 08/20/22 18:18 Last Admin: 07/31/22 13:35 Dose: 15 ml Buspirone HCl (Buspirone 5 Mg Tab) 5 mg PO TID PRN PRN Reason: Anxiety/Agitation Stop: 08/27/22 13:59 Last Admin: 08/18/22 17:29 Dose: 5 mg Lamotrigine (Lamotrigine 25 Mg Tab) 50 mg PO HS IFEOMA Stop: 09/06/22 21:59 Last Admin: 08/18/22 20:15 Dose: 50 mg Magnesium Hydroxide (Magnesium Hydroxide Susp 30 Ml Udc) 30 ml PO DAILY PRN PRN Reason: Constipation Stop: 08/20/22 18:18 Multi-Ingredient Cream (Eucerin Cr 120 Gm Jar) 1 appln EXT DAILY PRN PRN Reason: dry skin over knee Stop: 08/29/22 12:40 Last Admin: 08/10/22 21:49 Dose: 1 appln Ondansetron HCl (Ondansetron 4 Mg Od Tab) 4 mg PO Q6H PRN PRN Reason: Nausea Stop: 08/22/22 09:31 Last Admin: 07/25/22 06:28 Dose: 4 mg Pantoprazole Sodium (Pantoprazole 40 Mg Tab) 40 mg PO BID IFEOMA Stop: 08/21/22 11:44 Last Admin: 08/18/22 20:15 Dose: 40 mg Sodium Chloride (Sodium Chloride 0.65% Na Soln 45 Ml ([place])) 1 - 2 sprays NA PRN PRN PRN Reason: Nasal Dryness/Congestion Stop: 08/20/22 18:18 Mental Health & Subst Abuse Tx Therapist Name of Therapist: Hubert Martinez Shot Hole Shooter Name of Shot Hole Shooter: DANIE Watkins Post Discharge Appointments Primary Care Physician Name Of Family Doctor/PCP: Hubert Mcpherson Specialist Name of Specialist: [facility] - Dr. Avila Phone Number for Specialist: Date of Appointment with Specialist: 09/05/22 Time of Appointment with Specialist: 3:40 PM Specialty Appointment Comment: [address]; [address], [place], [place]
[2022-08-19] MEDS: busPIRone 5 MG TAB PO PRN (09:17)
[2022-08-19] MEDS ORDERED: ALUMINUM/MAGNESIUM SUSP 30 ML UDC PO PRN (13:02)
[2022-08-19] MEDS ORDERED: MAGNESIUM HYDROXIDE SUSP 30 ML UDC PO PRN (13:02)
[2022-08-19] MEDS ORDERED: ONDANSETRON 4 MG OD TAB PO PRN (13:02)
[2022-08-19] MEDS ORDERED: EUCERIN CR 120 GM JAR EXT PRN (13:02)
[2022-08-19] MEDS ORDERED: SODIUM CHLORIDE 0.65% NA SOLN 45 ML (OCEAN) PRN (13:05)
[2022-08-19] MEDS ORDERED: clonazePAM 0.25 MG TAB PO PRN (13:55)
[2022-08-19] MEDS: lamoTRIgine 25 MG TAB PO SCH (20:28)
[2022-08-20] MEDS: PANTOprazole 40 MG TAB PO SCH ×2 (09:36→21:08)
[2022-08-20] MEDS: ACETAMINOPHEN 325 MG TAB PO PRN (12:39)
--- NOTE | 2022-08-20 17:09 | Psychiatric Progress Note ---
Date of Service August 20, 2022 Impression / Recommendations Impression 21 yo female with a history of mood dysregulation, complex trauma hx, worsening depression on transition to living independently as an adult, limited coping skills tested by ACL repair. Diagnostically consistent with recurrent MDD in context of limited coping skills and social isolation and increasingly presents with likely cluster B traits/BPD given chronicity of her SI and very limited coping skills for emotional distress/self-harm urges. MNPR due to social skills, knee recovery, limited distress tolerance 08/20/2022: awaiting diversion option, improved from last contact Plan: anticipating acceptance to [facility]. Will titrate lamictal on 08/22/22. (1) MDD (major depressive disorder), recurrent episode, severe: (2) Post traumatic stress disorder (PTSD): (3) S/P ACL reconstruction: (4) Intellectual disability: Inventory Assets Strengths: accepting of services, cooperative with unit routines Needs: improve coping skills, ongoing CM involvement in placement options Suicide Risk Level Suicide Risk Level: Moderate (q15 min suicide checks) (labile mood with periods of depression and SI, able to safety contract that she will alert nursing if she feels unable to remain safe or develops SI with plan or intent) Risk Factors Assessment : Yes Do You Have Access To A Gun?: No Health Problems: Yes Mental Health Diagnoses: Yes Substance Use Disorders: No Previous Psychiatric Hospitalization: Yes Protective Factors Assessment Stable Relationships: Yes Interval History Identifying Information BAUTISTA ALLRED is a 21-year-old F who currently lives in [place], has a history of several inpatient stays on 3 S (most recently 07/24), and was admitted on 07/21/22 18:29 on a 201 voluntary commitment s/p medical admission for suicide attempt by OD. Chief Complaint 30 day review Review of Systems Sleep Information Total Hours of Sleep: 6 Meal Information Percent Meal Consumed - Breakfast: 0 Percent Meal Consumed - Lunch: 100 Percent Meal Consumed - Dinner: 100 Subjective Subjective Patient was seen & assessed and interval progress reviewed with treatment team. Patient enjoyed her therapeutic rec outside today. cooperative with CSRU assessment process. Completed violence risk assessment as requested by [facility], rated low risk. Physical Exam Psychiatric Orientation: alert and oriented x 3 Apperance: appropriately dressed and appropriately groomed Eye Contact: good eye contact Motor Behavior: no abnormal motor movements Speech: normal rate/rhythm/volume of speech Affect: euthymic affect Mood: + anxious mood Thought Process: + concrete thought process Thought Content: reality based without delusions Suicidal Thoughts: denies suicidal thoughts Homicidal Thoughts: denies homicidal thoughts Hallucinations: no auditory hallucinations and no visual hallucinations Cognition: attention grossly intact and language grossly intact Estimated Intelligence: consistent with education level Insight: + limited insight Vital Signs (Past 24 Hours) Last Vital Signs Temp 36.9 C 08/19/22 19:52 Pulse 88 08/17/22 06:37 Resp 16 08/17/22 06:36 BP 105/72 08/17/22 06:37 Pulse Ox 99 07/29/22 06:20 O2 Del Method 08/07/22 06:00 Results & Data ([facility]) Current Inpatient Medications Current Inpatient Medications: Current Inpatient Medications Acetaminophen (Acetaminophen 325 Mg Tab) 650 mg PO Q4H PRN PRN Reason: Headache or Minor Fever Stop: 09/18/22 12:59 Last Admin: 08/20/22 12:39 Dose: 650 mg Al Hydrox/Mg Hydrox/Simethicone (Aluminum/Magnesium Susp 30 Ml Udc) 30 ml PO Q4H PRN PRN Reason: GI Upset Stop: 09/18/22 12:59 Bismuth Subsalicylate (Bismuth Subsalicylate Liqd 236 Ml) 15 ml PO PRN PRN PRN Reason: Loose Stool Stop: 09/18/22 12:59 Buspirone HCl (Buspirone 5 Mg Tab) 5 mg PO TID PRN PRN Reason: Anxiety/Agitation Stop: 09/18/22 12:59 Clonazepam (Clonazepam 0.25 Mg Tab) 0.25 mg PO DAILY PRN PRN Reason: panic attack Stop: 09/18/22 13:54 Last Admin: 08/19/22 21:54 Dose: 0.25 mg Lamotrigine (Lamotrigine 25 Mg Tab) 50 mg PO HS IFEOMA Stop: 09/06/22 21:59 Last Admin: 08/19/22 20:28 Dose: 50 mg Magnesium Hydroxide (Magnesium Hydroxide Susp 30 Ml Udc) 30 ml PO DAILY PRN PRN Reason: Constipation Stop: 09/18/22 12:59 Multi-Ingredient Cream (Eucerin Cr 120 Gm Jar) 1 appln EXT DAILY PRN PRN Reason: dry skin over knee Stop: 09/18/22 12:59 Ondansetron HCl (Ondansetron 4 Mg Od Tab) 4 mg PO Q6H PRN PRN Reason: Nausea Stop: 09/18/22 12:59 Pantoprazole Sodium (Pantoprazole 40 Mg Tab) 40 mg PO BID IFEOMA Stop: 09/18/22 20:59 Last Admin: 08/20/22 09:36 Dose: Not Given Sodium Chloride (Sodium Chloride 0.65% Na Soln 45 Ml ([place])) 1 - 2 sprays NA PRN PRN PRN Reason: Nasal Dryness/Congestion Stop: 09/18/22 13:04 Mental Health & Subst Abuse Tx Therapist Name of Therapist: Hubert Martinez Partition Setter Name of Partition Setter: ADNIE Watkins Post Discharge Appointments Primary Care Physician Name Of Family Doctor/PCP: Hubert Mcpherson Specialist Name of Specialist: [facility] - Dr. Avila Phone Number for Specialist: Date of Appointment with Specialist: 09/05/22 Time of Appointment with Specialist: 3:40 PM Specialty Appointment Comment: [address]; [address], [place], [place]
[2022-08-20] MEDS: lamoTRIgine 25 MG TAB PO SCH (21:08)
[2022-08-21] MEDS: PANTOprazole 40 MG TAB PO SCH ×2 (08:33→20:31)
--- NOTE | 2022-08-21 15:39 | Psychiatric Progress Note ---
Date of Service August 21, 2022 Impression / Recommendations Impression 21 yo female with a history of mood dysregulation, complex trauma hx, worsening depression on transition to living independently as an adult, limited coping skills tested by ACL repair. Diagnostically consistent with recurrent MDD in context of limited coping skills and social isolation and increasingly presents with likely cluster B traits/BPD given chronicity of her SI and very limited coping skills for emotional distress/self-harm urges. MNPR due to social skills, knee recovery, limited distress tolerance 08/21/2022: awaiting CSR[facility] acceptance (1) MDD (major depressive disorder), recurrent episode, severe: (2) Post traumatic stress disorder (PTSD): (3) S/P ACL reconstruction: (4) Intellectual disability: Plan 08/21/2022: titrate Lamictal 100 mg daily. 08/19/22: Add KLonopin 0.25mg daily prn for panic attacks. 08/18/22: Continue current medications and tx plan. 08/17/22: Continue current medications and tx plan. 08/16/22: Discontinue Klonopin as may be contributing to daytime fatigue. 08/15/22: Continue current medications and tx plan. 08/14/22: Continue current medications and tx plan. 08/13/22: Continue current medications and tx plan. 08/12/22: Continue current medications and tx plan. 08/11/22: Continue current medications and tx plan. Ongoing coordination with [facility] regarding potential services for co-morbid intellectual disability. 08/10/22: Taper Klonopin to 0.25mg qd given concerns of disinhibition. 08/09/22: Continue current medications and tx plan. 08/08/2022: Continue current medications and tx plan. 08/07/2022: titrate lamictal to 50mg qhs. 08/04/2022: Abilify maintenna today, awaiting addition input from CM on diversion 08/03/2022: Continue current medications and tx plan. Option for abilify MORELOS tomorrow if she is interested. 08/02/22: Ongoing insight-oriented approach. Continue current medications and tx plan. 08/01/22: Continue with current medications and tx plan. 07/31/22: Continue with current medications and tx plan. EKG tomorrow to reassess QTc. 07/30/22: Increase abilify to 20mg qd. 07/29/22: Continue with current medications and tx plan. 07/28/22: Increase abilify to 15mg tomorrow morning 07/27/22: Continue with current medications and tx plan. 07/26/22: titrate Abilify to 10 mg starting tomorrow 07/25/22: continue daily ekGs to titrate Abilify to 20 mg in intervals. Monitor sedation on Klonopin, gait is steady, will move 2nd dose to hs. CXR for TB clearance for anticipated state hospital referral. 07/24/22: risks/benefits/alternatives reviewed re: Klonopin trial given random breakthrough anxiety. Discussed resuming Abilify oral dosing so can adjust/monitor QTc. Daily EKG ordered. patient agreeable and will start Abilify 5 mg daily today and Klonopin 0.25 mg po BID. She is ambulating well without her brace. consult PT for final exercises. 07/23/22: d/c Buspar as may be having residual serotonergic sensitivity, daily EKG per hospitalist recommendation, repeat labs unremarkable, vitals stable. Zofran prn. Hold Abilify maintenna due to day given QTc. 07/22/22: The patient was [facility] ([facility] inpatient mental health unit) on q15 min checks (behavioral with suicide precautions) for safety. The patient will participate in group, recreational, and milieu therapies and will be offered additional individual and family sessions as clinically appropriate. Restarted Buspar on medical floor, repeat EKG in am to determine appropriateness of Abilify maintenna that is due. Hold Zyprexa. She is aware that would not recommend resume Vistaril or Lexapro. Will offer Buspar 5 mg TID prn as well as frequently requests prn and want to avoid benzos. Restart lamictal as plan of outpatient provider and has never titrated. PT consult as still receiving outpatient PT. Explore possible state hospital referral given need for longer term hospitalization. Inventory Assets Strengths: accepting of services, cooperative with unit routines Needs: improve coping skills, ongoing CM involvement in placement options Suicide Risk Level Suicide Risk Level: Moderate (q15 min suicide checks) (labile mood with periods of depression and SI, able to safety contract that she will alert nursing if she feels unable to remain safe or develops SI with plan or intent) Risk Factors Assessment : Yes Do You Have Access To A Gun?: No Health Problems: Yes Mental Health Diagnoses: Yes Substance Use Disorders: No Previous Psychiatric Hospitalization: Yes Protective Factors Assessment Stable Relationships: Yes Interval History Identifying Information BAUTISTA ALLRED is a 21-year-old F who currently lives in [place], has a history of several inpatient stays on 3 S (most recently 07/24), and was admitted on 07/21/22 18:29 on a 201 voluntary commitment s/p medical admission for suicide attempt by OD. Chief Complaint "Im OK". Review of Systems Sleep Information Total Hours of Sleep: 9 Meal Information Percent Meal Consumed - Breakfast: 100 Percent Meal Consumed - Lunch: 100 Percent Meal Consumed - Dinner: 100 Subjective Subjective Patient was seen & assessed and interval progress reviewed with nursing and social work. No acute issues overnight. Awaiting call back/formal acceptance to [facility]. Patient cooperative in milieu, less attention seeking and somatic overall. Physical Exam Psychiatric Orientation: alert Apperance: appropriately dressed and appropriately groomed Eye Contact: good eye contact Motor Behavior: no abnormal motor movements Speech: normal rate/rhythm/volume of speech Mood: + depressed mood Thought Process: goal directed thought process Thought Content: reality based without delusions Suicidal Thoughts: denies suicidal thoughts Homicidal Thoughts: denies homicidal thoughts Hallucinations: no auditory hallucinations and no visual hallucinations Cognition: attention grossly intact and language grossly intact Estimated Intelligence: consistent with education level Insight: + limited insight Judgement: + limited judgement Vital Signs (Past 24 Hours) Last Vital Signs Temp 36.7 C 08/20/22 21:28 Pulse 88 08/17/22 06:37 Resp 16 08/17/22 06:36 BP 105/72 08/17/22 06:37 Pulse Ox 99 07/29/22 06:20 O2 Del Method 08/07/22 06:00 Results & Data (U) Current Inpatient Medications Current Inpatient Medications: Current Inpatient Medications Acetaminophen (Acetaminophen 325 Mg Tab) 650 mg PO Q4H PRN PRN Reason: Headache or Minor Fever Stop: 09/18/22 12:59 Last Admin: 08/20/22 12:39 Dose: 650 mg Al Hydrox/Mg Hydrox/Simethicone (Aluminum/Magnesium Susp 30 Ml Udc) 30 ml PO Q4H PRN PRN Reason: GI Upset Stop: 09/18/22 12:59 Bismuth Subsalicylate (Bismuth Subsalicylate Liqd 236 Ml) 15 ml PO PRN PRN PRN Reason: Loose Stool Stop: 09/18/22 12:59 Buspirone HCl (Buspirone 5 Mg Tab) 5 mg PO TID PRN PRN Reason: Anxiety/Agitation Stop: 09/18/22 12:59 Clonazepam (Clonazepam 0.25 Mg Tab) 0.25 mg PO DAILY PRN PRN Reason: panic attack Stop: 09/18/22 13:54 Last Admin: 08/19/22 21:54 Dose: 0.25 mg Lamotrigine (Lamotrigine 25 Mg Tab) 50 mg PO HS IFEOMA Stop: 09/06/22 21:59 Last Admin: 08/20/22 21:08 Dose: 50 mg Magnesium Hydroxide (Magnesium Hydroxide Susp 30 Ml Udc) 30 ml PO DAILY PRN PRN Reason: Constipation Stop: 09/18/22 12:59 Multi-Ingredient Cream (Eucerin Cr 120 Gm Jar) 1 appln EXT DAILY PRN PRN Reason: dry skin over knee Stop: 09/18/22 12:59 Ondansetron HCl (Ondansetron 4 Mg Od Tab) 4 mg PO Q6H PRN PRN Reason: Nausea Stop: 09/18/22 12:59 Pantoprazole Sodium (Pantoprazole 40 Mg Tab) 40 mg PO BID IFEOMA Stop: 09/18/22 20:59 Last Admin: 08/21/22 08:33 Dose: 40 mg Sodium Chloride (Sodium Chloride 0.65% Na Soln 45 Ml ([place])) 1 - 2 sprays NA PRN PRN PRN Reason: Nasal Dryness/Congestion Stop: 09/18/22 13:04 Mental Health & Subst Abuse Tx Therapist Name of Therapist: Hubert Martinez Doughnut Batter Mixer Name of Doughnut Batter Mixer: DANIE Watkins Post Discharge Appointments Primary Care Physician Name Of Family Doctor/PCP: Hubert Mcpherson Specialist Name of Specialist: [facility] - Dr. Avila Phone Number for Specialist: Date of Appointment with Specialist: 09/05/22 Time of Appointment with Specialist: 3:40 PM Specialty Appointment Comment: [address]; [address], [place], [place]
[2022-08-21] MEDS: HYDROCORTISONE 1% CRM 30 GM TUBE EXT PRN (19:31)
[2022-08-21] MEDS: busPIRone 5 MG TAB PO PRN (20:26)
[2022-08-21] MEDS: lamoTRIgine 25 MG TAB PO SCH (20:31)
[2022-08-21] MEDS ORDERED: lamoTRIgine 100 MG TAB PO SCH (22:00)
[2022-08-22] MEDS: PANTOprazole 40 MG TAB PO SCH ×2 (08:39→20:26)
[2022-08-22] MEDS: HYDROCORTISONE 1% CRM 30 GM TUBE EXT PRN (10:54)
--- NOTE | 2022-08-22 15:47 | Psychiatric Progress Note ---
Date of Service August 22, 2022 Impression / Recommendations Impression 21 yo female with a history of mood dysregulation, complex trauma hx, worsening depression on transition to living independently as an adult, limited coping skills tested by ACL repair. Diagnostically consistent with recurrent MDD in context of limited coping skills and social isolation and increasingly presents with likely cluster B traits/BPD given chronicity of her SI and very limited coping skills for emotional distress/self-harm urges. MNPR due to social skills, knee recovery, limited distress tolerance 08/22/2022: still awaiting [facility] acceptance, no evidence of drug rash, combined papules to lower abdomen consistent with excoriation (1) MDD (major depressive disorder), recurrent episode, severe: (2) Post traumatic stress disorder (PTSD): (3) S/P ACL reconstruction: (4) Intellectual disability: Plan 08/22/22: holding Lamictal at 50 mg until "rash" resolves per patient request. 08/21/2022: titrate Lamictal 100 mg daily. 08/19/22: Add KLonopin 0.25mg daily prn for panic attacks. 08/18/22: Continue current medications and tx plan. 08/17/22: Continue current medications and tx plan. 08/16/22: Discontinue Klonopin as may be contributing to daytime fatigue. 08/15/22: Continue current medications and tx plan. 08/14/22: Continue current medications and tx plan. 08/13/22: Continue current medications and tx plan. 08/12/22: Continue current medications and tx plan. 08/11/22: Continue current medications and tx plan. Ongoing coordination with on license of [facility] regarding potential services for co-morbid intellectual disability. 08/10/22: Taper Klonopin to 0.25mg qd given concerns of disinhibition. 08/09/22: Continue current medications and tx plan. 08/08/2022: Continue current medications and tx plan. 08/07/2022: titrate lamictal to 50mg qhs. 08/04/2022: Abilify maintenna today, awaiting addition input from CM on diversion 08/03/2022: Continue current medications and tx plan. Option for abilify MORELOS tomorrow if she is interested. 08/02/22: Ongoing insight-oriented approach. Continue current medications and tx plan. 08/01/22: Continue with current medications and tx plan. 07/31/22: Continue with current medications and tx plan. EKG tomorrow to reassess QTc. 07/30/22: Increase abilify to 20mg qd. 07/29/22: Continue with current medications and tx plan. 07/28/22: Increase abilify to 15mg tomorrow morning 07/27/22: Continue with current medications and tx plan. 07/26/22: titrate Abilify to 10 mg starting tomorrow 07/25/22: continue daily ekGs to titrate Abilify to 20 mg in intervals. Monitor sedation on Klonopin, gait is steady, will move 2nd dose to hs. CXR for TB clearance for anticipated state hospital referral. 07/24/22: risks/benefits/alternatives reviewed re: Klonopin trial given random breakthrough anxiety. Discussed resuming Abilify oral dosing so can adjust/monitor QTc. Daily EKG ordered. patient agreeable and will start Abilify 5 mg daily today and Klonopin 0.25 mg po BID. She is ambulating well without her brace. consult PT for final exercises. 07/23/22: d/c Buspar as may be having residual serotonergic sensitivity, daily EKG per hospitalist recommendation, repeat labs unremarkable, vitals stable. Zofran prn. Hold Abilify maintenna due to day given QTc. 07/22/22: The patient was admitted to the [facility] ([facility] unit) on q15 min checks (behavioral with suicide precautions) for safety. The patient will participate in group, recreational, and milieu therapies and will be offered additional individual and family sessions as clinically appropriate. Restarted Buspar on medical floor, repeat EKG in am to determine appropriateness of Abilify maintenna that is due. Hold Zyprexa. She is aware that would not recommend resume Vistaril or Lexapro. Will offer Buspar 5 mg TID prn as well as frequently requests prn and want to avoid benzos. Restart lamictal as plan of outpatient provider and has never titrated. PT consult as still receiving outpatient PT. Explore possible state hospital referral given need for longer term hospitalization. Inventory Assets Strengths: accepting of services, cooperative with unit routines Needs: improve coping skills, ongoing CM involvement in placement options Suicide Risk Level Suicide Risk Level: Moderate (q15 min suicide checks) Risk Factors Assessment : Yes Do You Have Access To A Gun?: No Health Problems: Yes Mental Health Diagnoses: Yes Substance Use Disorders: No Previous Psychiatric Hospitalization: Yes Protective Factors Assessment Stable Relationships: Yes Interval History Identifying Information BAUTISTA ALLRED is a 21-year-old F who currently lives in [place], has a history of several inpatient stays on 3 S (most recently 07/24), and was admitted on 07/21/22 18:29 on a 201 voluntary commitment s/p medical admission for suicide attempt by OD. Chief Complaint "it's still itchy", referring to excoriation on lower abdomen Review of Systems Sleep Information Total Hours of Sleep: 8 Meal Information Percent Meal Consumed - Breakfast: 100 Percent Meal Consumed - Lunch: 100 Percent Meal Consumed - Dinner: 100 Subjective Subjective Patient was seen & assessed and interval progress reviewed with treatment team. Patient's lamictal stayed at 50 mg last pm as she complained about rash a few hours after meeting with me. Appears to have scratched at dry skin around abdominal striae and although declines that hydrocotrisone cream helping it appears less red, no evidence of spreading, essentially combined to a few papules. No crusting or evidence of yeast. Physical Exam Psychiatric Orientation: alert and oriented x 3 Apperance: appropriately dressed and appropriately groomed Eye Contact: good eye contact Motor Behavior: no abnormal motor movements Speech: normal rate/rhythm/volume of speech Affect: euthymic affect Mood: + anxious mood Thought Process: + concrete thought process Thought Content: reality based without delusions Suicidal Thoughts: denies suicidal intent Homicidal Thoughts: denies homicidal thoughts Hallucinations: no auditory hallucinations and no visual hallucinations Cognition: attention grossly intact and language grossly intact Estimated Intelligence: + below average estimated intelligence Insight: + limited insight Judgement: + limited judgement Vital Signs (Past 24 Hours) Last Vital Signs Temp 36.3 C L 08/21/22 20:00 Pulse 88 08/17/22 06:37 Resp 16 08/17/22 06:36 BP 105/72 08/17/22 06:37 Pulse Ox 99 07/29/22 06:20 O2 Del Method 08/07/22 06:00 Results & Data ([facility]) Current Inpatient Medications Current Inpatient Medications: Current Inpatient Medications Acetaminophen (Acetaminophen 325 Mg Tab) 650 mg PO Q4H PRN PRN Reason: Headache or Minor Fever Stop: 09/18/22 12:59 Last Admin: 08/20/22 12:39 Dose: 650 mg Al Hydrox/Mg Hydrox/Simethicone (Aluminum/Magnesium Susp 30 Ml Udc) 30 ml PO Q4H PRN PRN Reason: GI Upset Stop: 09/18/22 12:59 Bismuth Subsalicylate (Bismuth Subsalicylate Liqd 236 Ml) 15 ml PO PRN PRN PRN Reason: Loose Stool Stop: 09/18/22 12:59 Buspirone HCl (Buspirone 5 Mg Tab) 5 mg PO TID PRN PRN Reason: Anxiety/Agitation Stop: 09/18/22 12:59 Last Admin: 08/21/22 20:26 Dose: 5 mg Clonazepam (Clonazepam 0.25 Mg Tab) 0.25 mg PO DAILY PRN PRN Reason: panic attack Stop: 09/18/22 13:54 Last Admin: 08/19/22 21:54 Dose: 0.25 mg Hydrocortisone (Hydrocortisone 1% Crm 30 Gm Tube) 1 appln EXT BID PRN PRN Reason: itchy rash Stop: 08/24/22 18:19 Last Admin: 08/22/22 10:54 Dose: 1 appln Lamotrigine (Lamotrigine 25 Mg Tab) 50 mg PO HS [facility] Stop: 09/20/22 20:59 Last Admin: 08/21/22 20:31 Dose: 50 mg Magnesium Hydroxide (Magnesium Hydroxide Susp 30 Ml Udc) 30 ml PO DAILY PRN PRN Reason: Constipation Stop: 09/18/22 12:59 Multi-Ingredient Cream (Eucerin Cr 120 Gm Jar) 1 appln EXT DAILY PRN PRN Reason: dry skin over knee Stop: 09/18/22 12:59 Ondansetron HCl (Ondansetron 4 Mg Od Tab) 4 mg PO Q6H PRN PRN Reason: Nausea Stop: 09/18/22 12:59 Pantoprazole Sodium (Pantoprazole 40 Mg Tab) 40 mg PO BID IFEOMA Stop: 09/18/22 20:59 Last Admin: 08/22/22 08:39 Dose: 40 mg Sodium Chloride (Sodium Chloride 0.65% Na Soln 45 Ml ([place])) 1 - 2 sprays NA PRN PRN PRN Reason: Nasal Dryness/Congestion Stop: 09/18/22 13:04 Mental Health & Subst Abuse Tx Therapist Name of Therapist: Hubert Martinez Edi Specialist Name of Edi Specialist: DANIE Watkins Post Discharge Appointments Primary Care Physician Name Of Family Doctor/PCP: Hubert Mcpherson Specialist Name of Specialist: [facility] - Dr. Avila Phone Number for Specialist: Date of Appointment with Specialist: 09/05/22 Time of Appointment with Specialist: 3:40 PM Specialty Appointment Comment: [address]; [address], [place], [place]
[2022-08-22] MEDS: lamoTRIgine 25 MG TAB PO SCH (20:26)
--- NOTE | 2022-08-23 07:32 | Psychiatric Progress Note ---
Date of Service August 23, 2022 Impression / Recommendations Impression 21 yo female with a history of mood dysregulation, complex trauma hx, worsening depression on transition to living independently as an adult, limited coping skills tested by ACL repair. Diagnostically consistent with recurrent MDD in context of limited coping skills and social isolation and increasingly presents with likely cluster B traits/BPD given chronicity of her SI and very limited coping skills for emotional distress/self-harm urges. MNPR due to social skills, knee recovery, limited distress tolerance 08/23/2022: still awaiting [facility] acceptance, no evidence of drug rash Plan: continue current meds and tx plan (1) MDD (major depressive disorder), recurrent episode, severe: (2) Post traumatic stress disorder (PTSD): (3) S/P ACL reconstruction: (4) Intellectual disability: Inventory Assets Strengths: accepting of services, cooperative with unit routines Needs: improve coping skills, ongoing CM involvement in placement options Suicide Risk Level Suicide Risk Level: Moderate (q15 min suicide checks) Risk Factors Assessment : Yes Do You Have Access To A Gun?: No Health Problems: Yes Mental Health Diagnoses: Yes Substance Use Disorders: No Previous Psychiatric Hospitalization: Yes Protective Factors Assessment Stable Relationships: Yes Interval History Identifying Information BAUTISTA ALLRED is a 21-year-old F who currently lives in [place], has a history of several inpatient stays on 3 S (most recently 07/24), and was admitted on 07/21/22 18:29 on a 201 voluntary commitment s/p medical admission for suicide attempt by OD. Chief Complaint staff report "playing possum" Review of Systems Sleep Information Total Hours of Sleep: 7 Meal Information Percent Meal Consumed - Breakfast: 100 Percent Meal Consumed - Lunch: 100 Percent Meal Consumed - Dinner: 100 Subjective Subjective Patient was seen & assessed and interval progress reviewed with nursing and social work. Patient will pretend to be sleeping or c/o stomach upset when doesn't want to attend to a task but otherwise appears bright. Physical Exam Psychiatric Orientation: alert Apperance: appropriately groomed Eye Contact: good eye contact Motor Behavior: no abnormal motor movements Speech: normal rate/rhythm/volume of speech Mood: + depressed mood Thought Content: reality based without delusions Suicidal Thoughts: denies suicidal thoughts Homicidal Thoughts: denies homicidal thoughts Hallucinations: no auditory hallucinations and no visual hallucinations Cognition: attention grossly intact and language grossly intact Estimated Intelligence: consistent with education level Insight: + limited insight Judgement: + limited judgement Vital Signs (Past 24 Hours) Last Vital Signs Temp 36.9 C 08/23/22 06:00 Pulse 93 H 08/23/22 06:00 Resp 18 08/23/22 06:00 BP 88/60 L 08/23/22 06:00 Pulse Ox 98 08/23/22 06:00 O2 Del Method 08/23/22 06:00 Results & Data ([facility]) Current Inpatient Medications Current Inpatient Medications: Current Inpatient Medications Acetaminophen (Acetaminophen 325 Mg Tab) 650 mg PO Q4H PRN PRN Reason: Headache or Minor Fever Stop: 09/18/22 12:59 Last Admin: 08/20/22 12:39 Dose: 650 mg Al Hydrox/Mg Hydrox/Simethicone (Aluminum/Magnesium Susp 30 Ml Udc) 30 ml PO Q4H PRN PRN Reason: GI Upset Stop: 09/18/22 12:59 Bismuth Subsalicylate (Bismuth Subsalicylate Liqd 236 Ml) 15 ml PO PRN PRN PRN Reason: Loose Stool Stop: 09/18/22 12:59 Buspirone HCl (Buspirone 5 Mg Tab) 5 mg PO TID PRN PRN Reason: Anxiety/Agitation Stop: 09/18/22 12:59 Last Admin: 08/21/22 20:26 Dose: 5 mg Clonazepam (Clonazepam 0.25 Mg Tab) 0.25 mg PO DAILY PRN PRN Reason: panic attack Stop: 09/18/22 13:54 Last Admin: 08/19/22 21:54 Dose: 0.25 mg Hydrocortisone (Hydrocortisone 1% Crm 30 Gm Tube) 1 appln EXT BID PRN PRN Reason: itchy rash Stop: 08/24/22 18:19 Last Admin: 08/22/22 10:54 Dose: 1 appln Lamotrigine (Lamotrigine 25 Mg Tab) 50 mg PO HS IFEOAM Stop: 09/20/22 20:59 Last Admin: 08/22/22 20:26 Dose: 50 mg Magnesium Hydroxide (Magnesium Hydroxide Susp 30 Ml Udc) 30 ml PO DAILY PRN PRN Reason: Constipation Stop: 09/18/22 12:59 Multi-Ingredient Cream (Eucerin Cr 120 Gm Jar) 1 appln EXT DAILY PRN PRN Reason: dry skin over knee Stop: 09/18/22 12:59 Ondansetron HCl (Ondansetron 4 Mg Od Tab) 4 mg PO Q6H PRN PRN Reason: Nausea Stop: 09/18/22 12:59 Pantoprazole Sodium (Pantoprazole 40 Mg Tab) 40 mg PO BID IFEOMA Stop: 09/18/22 20:59 Last Admin: 08/22/22 20:26 Dose: 40 mg Sodium Chloride (Sodium Chloride 0.65% Na Soln 45 Ml ([place])) 1 - 2 sprays NA PRN PRN PRN Reason: Nasal Dryness/Congestion Stop: 09/18/22 13:04 Mental Health & Subst Abuse Tx Therapist Name of Therapist: Hubert Martinez Salvage Grinder Name of Salvage Grinder: DANIE Watkins Post Discharge Appointments Primary Care Physician Name Of Family Doctor/PCP: Hubert Mcpherson Specialist Name of Specialist: [facility] - Dr. Avila Phone Number for Specialist: Date of Appointment with Specialist: 09/05/22 Time of Appointment with Specialist: 3:40 PM Specialty Appointment Comment: [address]; [address], [place], [place]
[2022-08-23] MEDS: PANTOprazole 40 MG TAB PO SCH ×2 (09:55→21:05)
[2022-08-23] MEDS: lamoTRIgine 25 MG TAB PO SCH (21:05)
[2022-08-24] MEDS: PANTOprazole 40 MG TAB PO SCH ×2 (09:29→20:47)
--- NOTE | 2022-08-24 13:59 | Psychiatric Progress Note ---
Date of Service August 24, 2022 Impression / Recommendations Impression 21 yo female with a history of mood dysregulation, complex trauma hx, worsening depression on transition to living independently as an adult, limited coping skills tested by ACL repair. Diagnostically consistent with recurrent MDD in context of limited coping skills and social isolation and increasingly presents with likely cluster B traits/BPD given chronicity of her SI and very limited coping skills for emotional distress/self-harm urges. MNPR due to social skills, knee recovery, limited distress tolerance 08/24/2022: still awaiting [facility] acceptance, no evidence of drug rash, patient is now declining lamictal titration, consider d/c. Plan: continue current meds and tx plan (1) MDD (major depressive disorder), recurrent episode, severe: (2) Post traumatic stress disorder (PTSD): (3) S/P ACL reconstruction: (4) Intellectual disability: Inventory Assets Strengths: accepting of services, cooperative with unit routines Needs: improve coping skills, ongoing CM involvement in placement options Suicide Risk Level Suicide Risk Level: Moderate (q15 min suicide checks) Risk Factors Assessment : Yes Do You Have Access To A Gun?: No Health Problems: Yes Mental Health Diagnoses: Yes Substance Use Disorders: No Previous Psychiatric Hospitalization: Yes Protective Factors Assessment Stable Relationships: Yes Interval History Identifying Information BAUTISTA ALLRED is a 21-year-old F who currently lives in [place], has a history of several inpatient stays on 3 S (most recently 07/24), and was admitted on 07/21/22 18:29 on a 201 voluntary commitment s/p medical admission for suicide attempt by OD. Chief Complaint "I'm fine". Review of Systems Sleep Information Total Hours of Sleep: 7 Meal Information Percent Meal Consumed - Breakfast: 100 Percent Meal Consumed - Lunch: 100 Percent Meal Consumed - Dinner: 100 Subjective Subjective Patient was seen & assessed and interval progress reviewed with nursing and social work. No acute issues overnight. Exocoriations on abdomen resolving. Physical Exam Psychiatric Orientation: alert Apperance: appropriately dressed and appropriately groomed Eye Contact: good eye contact Motor Behavior: no abnormal motor movements Speech: normal rate/rhythm/volume of speech Mood: + depressed mood Thought Process: goal directed thought process Thought Content: reality based without delusions Suicidal Thoughts: denies suicidal thoughts Homicidal Thoughts: denies homicidal thoughts Hallucinations: no auditory hallucinations and no visual hallucinations Cognition: attention grossly intact and language grossly intact Vital Signs (Past 24 Hours) Last Vital Signs Temp 37.0 C 08/24/22 06:00 Pulse 80 08/24/22 06:00 Resp 18 08/24/22 06:00 BP 98/64 L 08/24/22 06:29 Pulse Ox 98 08/24/22 06:00 O2 Del Method 08/24/22 06:00 Results & Data ([facility]) Current Inpatient Medications Current Inpatient Medications: Current Inpatient Medications Acetaminophen (Acetaminophen 325 Mg Tab) 650 mg PO Q4H PRN PRN Reason: Headache or Minor Fever Stop: 09/18/22 12:59 Last Admin: 08/20/22 12:39 Dose: 650 mg Al Hydrox/Mg Hydrox/Simethicone (Aluminum/Magnesium Susp 30 Ml Udc) 30 ml PO Q4H PRN PRN Reason: GI Upset Stop: 09/18/22 12:59 Bismuth Subsalicylate (Bismuth Subsalicylate Liqd 236 Ml) 15 ml PO PRN PRN PRN Reason: Loose Stool Stop: 09/18/22 12:59 Buspirone HCl (Buspirone 5 Mg Tab) 5 mg PO TID PRN PRN Reason: Anxiety/Agitation Stop: 09/18/22 12:59 Last Admin: 08/21/22 20:26 Dose: 5 mg Clonazepam (Clonazepam 0.25 Mg Tab) 0.25 mg PO DAILY PRN PRN Reason: panic attack Stop: 09/18/22 13:54 Last Admin: 08/19/22 21:54 Dose: 0.25 mg Hydrocortisone (Hydrocortisone 1% Crm 30 Gm Tube) 1 appln EXT BID PRN PRN Reason: itchy rash Stop: 08/24/22 18:19 Last Admin: 08/22/22 10:54 Dose: 1 appln Lamotrigine (Lamotrigine 25 Mg Tab) 50 mg PO HS IFEOMA Stop: 09/20/22 20:59 Last Admin: 08/23/22 21:05 Dose: 50 mg Magnesium Hydroxide (Magnesium Hydroxide Susp 30 Ml Udc) 30 ml PO DAILY PRN PRN Reason: Constipation Stop: 09/18/22 12:59 Multi-Ingredient Cream (Eucerin Cr 120 Gm Jar) 1 appln EXT DAILY PRN PRN Reason: dry skin over knee Stop: 09/18/22 12:59 Ondansetron HCl (Ondansetron 4 Mg Od Tab) 4 mg PO Q6H PRN PRN Reason: Nausea Stop: 09/18/22 12:59 Pantoprazole Sodium (Pantoprazole 40 Mg Tab) 40 mg PO BID IFEOMA Stop: 09/18/22 20:59 Last Admin: 08/24/22 09:29 Dose: 40 mg Sodium Chloride (Sodium Chloride 0.65% Na Soln 45 Ml ([place])) 1 - 2 sprays NA PRN PRN PRN Reason: Nasal Dryness/Congestion Stop: 09/18/22 13:04 Mental Health & Subst Abuse Tx Therapist Name of Therapist: Hubert Martinez Title Officer Name of Title Officer: DANIE Watkins Post Discharge Appointments Primary Care Physician Name Of Family Doctor/PCP: Hubert Mcpherson Specialist Name of Specialist: [facility] - Dr. Avila Phone Number for Specialist: Date of Appointment with Specialist: 09/05/22 Time of Appointment with Specialist: 3:40 PM Specialty Appointment Comment: [address]; [address], [place], [place]
[2022-08-24] MEDS: lamoTRIgine 25 MG TAB PO SCH (20:47)
[2022-08-25] MEDS: PANTOprazole 40 MG TAB PO SCH (09:07)
[2022-08-25] MEDS: busPIRone 5 MG TAB PO PRN (13:15)
--- NOTE | 2022-08-25 17:01 | Psychiatric Progress Note ---
Date of Service August 25, 2022 Impression / Recommendations Impression 21 yo female with a history of mood dysregulation, complex trauma hx, worsening depression on transition to living independently as an adult, limited coping skills tested by ACL repair. Diagnostically consistent with recurrent MDD in context of limited coping skills and social isolation and increasingly presents with likely cluster B traits/BPD given chronicity of her SI and very limited coping skills for emotional distress/self-harm urges. MNPR due to social skills, knee recovery, limited distress tolerance 08/25/2022: still awaiting [facility] acceptance, patient desires d/c Lamictal trial. (1) MDD (major depressive disorder), recurrent episode, severe: (2) Post traumatic stress disorder (PTSD): (3) S/P ACL reconstruction: (4) Intellectual disability: Plan 08/25/22: d/c Lamictal. Desires trial of d/c antacid to once daily to minimize number of pills. Abilify maintenna due 09/03/22. 08/22/22: holding Lamictal at 50 mg until "rash" resolves per patient request. 08/21/2022: titrate Lamictal 100 mg daily. 08/19/22: Add KLonopin 0.25mg daily prn for panic attacks. 08/18/22: Continue current medications and tx plan. 08/17/22: Continue current medications and tx plan. 08/16/22: Discontinue Klonopin as may be contributing to daytime fatigue. 08/15/22: Continue current medications and tx plan. 08/14/22: Continue current medications and tx plan. 08/13/22: Continue current medications and tx plan. 08/12/22: Continue current medications and tx plan. 08/11/22: Continue current medications and tx plan. Ongoing coordination with [facility] regarding potential services for co-morbid intellectual disability. 08/10/22: Taper Klonopin to 0.25mg qd given concerns of disinhibition. 08/09/22: Continue current medications and tx plan. 08/08/2022: Continue current medications and tx plan. 08/07/2022: titrate lamictal to 50mg qhs. 08/04/2022: Abilify maintenna today, awaiting addition input from CM on diversion 08/03/2022: Continue current medications and tx plan. Option for abilify MORELOS tomorrow if she is interested. 08/02/22: Ongoing insight-oriented approach. Continue current medications and tx plan. 08/01/22: Continue with current medications and tx plan. 07/31/22: Continue with current medications and tx plan. EKG tomorrow to reassess QTc. 07/30/22: Increase abilify to 20mg qd. 07/29/22: Continue with current medications and tx plan. 07/28/22: Increase abilify to 15mg tomorrow morning 07/27/22: Continue with current medications and tx plan. 07/26/22: titrate Abilify to 10 mg starting tomorrow 07/25/22: continue daily ekGs to titrate Abilify to 20 mg in intervals. Monitor sedation on Klonopin, gait is steady, will move 2nd dose to hs. CXR for TB clearance for anticipated [facility] referral. 07/24/22: risks/benefits/alternatives reviewed re: Klonopin trial given random breakthrough anxiety. Discussed resuming Abilify oral dosing so can adjust/monitor QTc. Daily EKG ordered. patient agreeable and will start Abilify 5 mg daily today and Klonopin 0.25 mg po BID. She is ambulating well without her brace. consult PT for final exercises. 07/23/22: d/c Buspar as may be having residual serotonergic sensitivity, daily EKG per hospitalist recommendation, repeat labs unremarkable, vitals stable. Zofran prn. Hold Abilify maintenna due to day given QTc. 07/22/22: The patient was admitted to the [facility] ([facility]) on q15 min checks (behavioral with suicide precautions) for safety. The patient will participate in group, recreational, and milieu therapies and will be offered additional individual and family sessions as clinically appropriate. Restarted Buspar on medical floor, repeat EKG in am to determine appropriateness of Abilify maintenna that is due. Hold Zyprexa. She is aware that would not recommend resume Vistaril or Lexapro. Will offer Buspar 5 mg TID prn as well as frequently requests prn and want to avoid benzos. Restart lamictal as plan of outpatient provider and has never titrated. PT consult as still receiving outpatient PT. Explore possible state hospital referral given need for longer term hospitalization. Inventory Assets Strengths: accepting of services, cooperative with unit routines Needs: improve coping skills, ongoing CM involvement in placement options Suicide Risk Level Suicide Risk Level: Moderate (q15 min suicide checks) Risk Factors Assessment : Yes Do You Have Access To A Gun?: No Health Problems: Yes Mental Health Diagnoses: Yes Substance Use Disorders: No Previous Psychiatric Hospitalization: Yes Protective Factors Assessment Stable Relationships: Yes Interval History Identifying Information BAUTISTA ALLRED is a 21-year-old F who currently lives in [place], has a history of several inpatient stays on 3 S (most recently 07/24), and was admitted on 07/21/22 18:29 on a 201 voluntary commitment s/p medical admission for suicide attempt by OD. Chief Complaint "I just want to take less medication". Review of Systems Sleep Information Total Hours of Sleep: 8 Meal Information Percent Meal Consumed - Breakfast: 100 Percent Meal Consumed - Lunch: 100 Percent Meal Consumed - Dinner: 100 Subjective Subjective Patient was seen & assessed and interval progress reviewed with treatment team. no new issues, relating well despite difficult milieu Physical Exam Psychiatric Orientation: alert Apperance: appropriately dressed and appropriately groomed Eye Contact: good eye contact Motor Behavior: no abnormal motor movements Speech: normal rate/rhythm/volume of speech Affect: euthymic affect Mood: + anxious mood Thought Process: + concrete thought process Thought Content: reality based without delusions Suicidal Thoughts: denies suicidal thoughts Homicidal Thoughts: denies homicidal thoughts Hallucinations: no auditory hallucinations and no visual hallucinations Cognition: attention grossly intact and language grossly intact Estimated Intelligence: consistent with education level and + below average estimated intelligence Insight: + limited insight Judgement: + limited judgement Vital Signs (Past 24 Hours) Last Vital Signs Temp 36.8 C 08/25/22 06:00 Pulse 107 H 08/25/22 06:00 Resp 18 08/25/22 06:00 BP 93/53 L 08/25/22 06:00 Pulse Ox 97 08/25/22 06:00 O2 Del Method 08/25/22 06:00 Results & Data ([facility]) Current Inpatient Medications Current Inpatient Medications: Current Inpatient Medications Acetaminophen (Acetaminophen 325 Mg Tab) 650 mg PO Q4H PRN PRN Reason: Headache or Minor Fever Stop: 09/18/22 12:59 Last Admin: 08/20/22 12:39 Dose: 650 mg Al Hydrox/Mg Hydrox/Simethicone (Aluminum/Magnesium Susp 30 Ml Udc) 30 ml PO Q4H PRN PRN Reason: GI Upset Stop: 09/18/22 12:59 Bismuth Subsalicylate (Bismuth Subsalicylate Liqd 236 Ml) 15 ml PO PRN PRN PRN Reason: Loose Stool Stop: 09/18/22 12:59 Buspirone HCl (Buspirone 5 Mg Tab) 5 mg PO TID PRN PRN Reason: Anxiety/Agitation Stop: 09/18/22 12:59 Last Admin: 08/25/22 13:15 Dose: 5 mg Clonazepam (Clonazepam 0.25 Mg Tab) 0.25 mg PO DAILY PRN PRN Reason: panic attack Stop: 09/18/22 13:54 Last Admin: 08/19/22 21:54 Dose: 0.25 mg Lamotrigine (Lamotrigine 25 Mg Tab) 50 mg PO HS IFEOMA Stop: 09/20/22 20:59 Last Admin: 08/24/22 20:47 Dose: 50 mg Magnesium Hydroxide (Magnesium Hydroxide Susp 30 Ml Udc) 30 ml PO DAILY PRN PRN Reason: Constipation Stop: 09/18/22 12:59 Multi-Ingredient Cream (Eucerin Cr 120 Gm Jar) 1 appln EXT DAILY PRN PRN Reason: dry skin over knee Stop: 09/18/22 12:59 Ondansetron HCl (Ondansetron 4 Mg Od Tab) 4 mg PO Q6H PRN PRN Reason: Nausea Stop: 09/18/22 12:59 Pantoprazole Sodium (Pantoprazole 40 Mg Tab) 40 mg PO BID IFEOMA Stop: 09/18/22 20:59 Last Admin: 08/25/22 09:07 Dose: 40 mg Sodium Chloride (Sodium Chloride 0.65% Na Soln 45 Ml ([place])) 1 - 2 sprays NA PRN PRN PRN Reason: Nasal Dryness/Congestion Stop: 09/18/22 13:04 Mental Health & Subst Abuse Tx Therapist Name of Therapist: Hubert Martinez Bath Tester Name of Bath Tester: DANIE Watkins Post Discharge Appointments Primary Care Physician Name Of Family Doctor/PCP: Hubert Mcpherson Specialist Name of Specialist: [facility] [place] Orthopedics - Dr. Avila Phone Number for Specialist: Date of Appointment with Specialist: 09/05/22 Time of Appointment with Specialist: 3:40 PM Specialty Appointment Comment: [address]; [address], [place], [place]
[2022-08-26] MEDS: PANTOprazole 40 MG TAB PO SCH (10:01)
--- NOTE | 2022-08-26 11:19 | Psychiatric Progress Note ---
Date of Service August 26, 2022 Impression / Recommendations Impression 21 yo female with a history of mood dysregulation, complex trauma hx, worsening depression on transition to living independently as an adult, limited coping skills tested by ACL repair. Diagnostically consistent with recurrent MDD in context of limited coping skills and social isolation and increasingly presents with likely cluster B traits/BPD given chronicity of her SI and very limited coping skills for emotional distress/self-harm urges. MNPR due to social skills, knee recovery, limited distress tolerance 08/26/2022: still awaiting [facility] acceptance, therapeutic time outside as remains cooperative Plan: continue current treatment plan. (1) MDD (major depressive disorder), recurrent episode, severe: (2) Post traumatic stress disorder (PTSD): (3) S/P ACL reconstruction: (4) Intellectual disability: Inventory Assets Strengths: accepting of services, cooperative with unit routines Needs: improve coping skills, ongoing CM involvement in placement options Suicide Risk Level Suicide Risk Level: Moderate (q15 min suicide checks) Risk Factors Assessment : Yes Do You Have Access To A Gun?: No Health Problems: Yes Mental Health Diagnoses: Yes Substance Use Disorders: No Previous Psychiatric Hospitalization: Yes Protective Factors Assessment Stable Relationships: Yes Interval History Identifying Information BAUTISTA ALLRED is a 21-year-old F who currently lives in [place], has a history of several inpatient stays on 3 S (most recently 07/24), and was admitted on 07/21/22 18:29 on a 201 voluntary commitment s/p medical admission for suicide attempt by OD. Chief Complaint "I'd like to go outside today." Review of Systems Sleep Information Total Hours of Sleep: 7.75 Meal Information Percent Meal Consumed - Breakfast: 100 Percent Meal Consumed - Lunch: 100 Percent Meal Consumed - Dinner: 100 Subjective Subjective Patient was seen & assessed and interval progress reviewed with nursing and social work. No acute issues overnight. Physical Exam Psychiatric Orientation: alert Apperance: appropriately dressed and appropriately groomed Eye Contact: good eye contact Motor Behavior: no abnormal motor movements Speech: normal rate/rhythm/volume of speech Affect: euthymic affect Mood: no depressed mood Thought Process: goal directed thought process Thought Content: reality based without delusions Suicidal Thoughts: denies suicidal thoughts Homicidal Thoughts: denies homicidal thoughts Hallucinations: no auditory hallucinations and no visual hallucinations Cognition: attention grossly intact and language grossly intact Estimated Intelligence: consistent with education level Insight: + limited insight Judgement: + limited judgement Vital Signs (Past 24 Hours) Last Vital Signs Temp 36.5 C 08/26/22 06:38 Pulse 102 H 08/26/22 06:39 Resp 16 08/26/22 06:38 BP 113/83 08/26/22 06:39 Pulse Ox 97 08/25/22 06:00 O2 Del Method 08/25/22 06:00 Results & Data ([facility]) Current Inpatient Medications Current Inpatient Medications: Current Inpatient Medications Acetaminophen (Acetaminophen 325 Mg Tab) 650 mg PO Q4H PRN PRN Reason: Headache or Minor Fever Stop: 09/18/22 12:59 Last Admin: 08/20/22 12:39 Dose: 650 mg Al Hydrox/Mg Hydrox/Simethicone (Aluminum/Magnesium Susp 30 Ml Udc) 30 ml PO Q4H PRN PRN Reason: GI Upset Stop: 09/18/22 12:59 Bismuth Subsalicylate (Bismuth Subsalicylate Liqd 236 Ml) 15 ml PO PRN PRN PRN Reason: Loose Stool Stop: 09/18/22 12:59 Buspirone HCl (Buspirone 5 Mg Tab) 5 mg PO TID PRN PRN Reason: Anxiety/Agitation Stop: 09/18/22 12:59 Last Admin: 08/25/22 13:15 Dose: 5 mg Clonazepam (Clonazepam 0.25 Mg Tab) 0.25 mg PO DAILY PRN PRN Reason: panic attack Stop: 09/18/22 13:54 Last Admin: 08/19/22 21:54 Dose: 0.25 mg Magnesium Hydroxide (Magnesium Hydroxide Susp 30 Ml Udc) 30 ml PO DAILY PRN PRN Reason: Constipation Stop: 09/18/22 12:59 Multi-Ingredient Cream (Eucerin Cr 120 Gm Jar) 1 appln EXT DAILY PRN PRN Reason: dry skin over knee Stop: 09/18/22 12:59 Ondansetron HCl (Ondansetron 4 Mg Od Tab) 4 mg PO Q6H PRN PRN Reason: Nausea Stop: 09/18/22 12:59 Pantoprazole Sodium (Pantoprazole 40 Mg Tab) 40 mg PO QAM IFEOMA Stop: 09/25/22 08:59 Last Admin: 08/26/22 10:01 Dose: 40 mg Sodium Chloride (Sodium Chloride 0.65% Na Soln 45 Ml ([place])) 1 - 2 sprays NA PRN PRN PRN Reason: Nasal Dryness/Congestion Stop: 09/18/22 13:04 Mental Health & Subst Abuse Tx Therapist Name of Therapist: Hubert Martinez Stringed Instrument Tuner Name of Stringed Instrument Tuner: DANIE Watkins Post Discharge Appointments Primary Care Physician Name Of Family Doctor/PCP: Hubert Mcpherson Specialist Name of Specialist: [facility] - Dr. Avila Phone Number for Specialist: Date of Appointment with Specialist: 09/05/22 Time of Appointment with Specialist: 3:40 PM Specialty Appointment Comment: [address]; [address], [place], [place]
[2022-08-27] MEDS: PANTOprazole 40 MG TAB PO SCH (09:25)
--- NOTE | 2022-08-27 15:14 | Psychiatric Progress Note ---
Date of Service August 27, 2022 Impression / Recommendations Impression 21 yo female with a history of mood dysregulation, complex trauma hx, worsening depression on transition to living independently as an adult, limited coping skills tested by ACL repair. Diagnostically consistent with recurrent MDD in context of limited coping skills and social isolation and increasingly presents with likely cluster B traits/BPD given chronicity of her SI and very limited coping skills for emotional distress/self-harm urges. MNPR due to social skills, knee recovery, limited distress tolerance 08/27/2022: improved (1) MDD (major depressive disorder), recurrent episode, severe: (2) Post traumatic stress disorder (PTSD): (3) S/P ACL reconstruction: (4) Intellectual disability: Plan 08/27/22: accepted to [facility], unable to be safely discharged to the community without [facility] level of support or would readily decompensate. 08/25/22: d/c Lamictal. Desires trial of d/c antacid to once daily to minimize number of pills. [facility] due 09/03/22. 08/22/22: holding Lamictal at 50 mg until "rash" resolves per patient request. 08/21/2022: titrate Lamictal 100 mg daily. 08/19/22: Add KLonopin 0.25mg daily prn for panic attacks. 08/18/22: Continue current medications and tx plan. 08/17/22: Continue current medications and tx plan. 08/16/22: Discontinue Klonopin as may be contributing to daytime fatigue. 08/15/22: Continue current medications and tx plan. 08/14/22: Continue current medications and tx plan. 08/13/22: Continue current medications and tx plan. 08/12/22: Continue current medications and tx plan. 08/11/22: Continue current medications and tx plan. Ongoing coordination with [facility] regarding potential services for co-morbid intellectual disability. 08/10/22: Taper Klonopin to 0.25mg qd given concerns of disinhibition. 08/09/22: Continue current medications and tx plan. 08/08/2022: Continue current medications and tx plan. 08/07/2022: titrate lamictal to 50mg qhs. 08/04/2022: [facility] today, awaiting addition input from CM on diversion 08/03/2022: Continue current medications and tx plan. Option for abilify MORELOS tomorrow if she is interested. 08/02/22: Ongoing insight-oriented approach. Continue current medications and tx plan. 08/01/22: Continue with current medications and tx plan. 07/31/22: Continue with current medications and tx plan. EKG tomorrow to reassess QTc. 07/30/22: Increase abilify to 20mg qd. 07/29/22: Continue with current medications and tx plan. 07/28/22: Increase abilify to 15mg tomorrow morning 07/27/22: Continue with current medications and tx plan. 07/26/22: titrate Abilify to 10 mg starting tomorrow 07/25/22: continue daily ekGs to titrate Abilify to 20 mg in intervals. Monitor sedation on Klonopin, gait is steady, will move 2nd dose to hs. CXR for TB clearance for anticipated [facility] referral. 07/24/22: risks/benefits/alternatives reviewed re: Klonopin trial given random breakthrough anxiety. Discussed resuming Abilify oral dosing so can adjust/monitor QTc. Daily EKG ordered. patient agreeable and will start Abilify 5 mg daily today and Klonopin 0.25 mg po BID. She is ambulating well without her brace. consult PT for final exercises. 07/23/22: d/c Buspar as may be having residual serotonergic sensitivity, daily EKG per hospitalist recommendation, repeat labs unremarkable, vitals stable. Zofran prn. Hold Abilify maintenna due to day given QTc. 07/22/22: The patient was admitted to the [facility] ([facility] inpatient mental health unit) on q15 min checks (behavioral with suicide precautions) for safety. The patient will participate in group, recreational, and milieu therapies and will be offered additional individual and family sessions as clinically appropriate. Restarted Buspar on medical floor, repeat EKG in am to determine appropriateness of Abilify maintenna that is due. Hold Zyprexa. She is aware that would not recommend resume Vistaril or Lexapro. Will offer Buspar 5 mg TID prn as well as frequently requests prn and want to avoid benzos. Restart lamictal as plan of outpatient provider and has never titrated. PT consult as still receiving outpatient PT. Explore possible state hospital referral given need for longer term hospitalization. Inventory Assets Strengths: accepting of services, cooperative with unit routines Needs: improve coping skills, ongoing CM involvement in placement options Suicide Risk Level Suicide Risk Level: Moderate (q15 min suicide checks) Risk Factors Assessment : Yes Do You Have Access To A Gun?: No Health Problems: Yes Mental Health Diagnoses: Yes Substance Use Disorders: No Previous Psychiatric Hospitalization: Yes Protective Factors Assessment Stable Relationships: Yes Interval History Identifying Information BAUTISTA ALLRED is a 21-year-old F who currently lives in [place], has a history of several inpatient stays on 3 S (most recently 07/24), and was admitted on 07/21/22 18:29 on a 201 voluntary commitment s/p medical admission for suicide attempt by OD. Chief Complaint "I got a place!" Review of Systems Sleep Information Total Hours of Sleep: 8.25 Meal Information Percent Meal Consumed - Breakfast: 100 Percent Meal Consumed - Lunch: 100 Percent Meal Consumed - Dinner: 100 Subjective Subjective Patient was seen & assessed and interval progress reviewed with treatment team. Patient was accepted to [facility] with anticipated bed date of 09/08. Physical Exam Psychiatric Orientation: alert Apperance: appropriately dressed and appropriately groomed Eye Contact: good eye contact Motor Behavior: no abnormal motor movements Speech: normal rate/rhythm/volume of speech Affect: euthymic affect Mood: no depressed mood Thought Process: goal directed thought process Thought Content: reality based without delusions Suicidal Thoughts: denies suicidal thoughts Homicidal Thoughts: denies homicidal thoughts Hallucinations: no auditory hallucinations and no visual hallucinations Cognition: attention grossly intact Vital Signs (Past 24 Hours) Last Vital Signs Temp 36.4 C 08/26/22 20:00 Pulse 102 H 08/26/22 06:39 Resp 16 08/26/22 06:38 BP 113/83 08/26/22 06:39 Pulse Ox 97 08/25/22 06:00 O2 Del Method 08/25/22 06:00 Results & Data ([facility]) Current Inpatient Medications Current Inpatient Medications: Current Inpatient Medications Acetaminophen (Acetaminophen 325 Mg Tab) 650 mg PO Q4H PRN PRN Reason: Headache or Minor Fever Stop: 09/18/22 12:59 Last Admin: 08/20/22 12:39 Dose: 650 mg Al Hydrox/Mg Hydrox/Simethicone (Aluminum/Magnesium Susp 30 Ml Udc) 30 ml PO Q4H PRN PRN Reason: GI Upset Stop: 09/18/22 12:59 Aripiprazole (Aripiprazole 400 Mg Pre-Filled Syringe) 400 mg IM TODAY@ IFEOMA Stop: 09/03/22 09:01 Bismuth Subsalicylate (Bismuth Subsalicylate Liqd 236 Ml) 15 ml PO PRN PRN PRN Reason: Loose Stool Stop: 09/18/22 12:59 Buspirone HCl (Buspirone 5 Mg Tab) 5 mg PO TID PRN PRN Reason: Anxiety/Agitation Stop: 09/18/22 12:59 Last Admin: 08/25/22 13:15 Dose: 5 mg Clonazepam (Clonazepam 0.25 Mg Tab) 0.25 mg PO DAILY PRN PRN Reason: panic attack Stop: 09/18/22 13:54 Last Admin: 08/19/22 21:54 Dose: 0.25 mg Magnesium Hydroxide (Magnesium Hydroxide Susp 30 Ml Udc) 30 ml PO DAILY PRN PRN Reason: Constipation Stop: 09/18/22 12:59 Multi-Ingredient Cream (Eucerin Cr 120 Gm Jar) 1 appln EXT DAILY PRN PRN Reason: dry skin over knee Stop: 09/18/22 12:59 Ondansetron HCl (Ondansetron 4 Mg Od Tab) 4 mg PO Q6H PRN PRN Reason: Nausea Stop: 09/18/22 12:59 Last Admin: 08/27/22 13:34 Dose: 4 mg Pantoprazole Sodium (Pantoprazole 40 Mg Tab) 40 mg PO QAM [facility] Stop: 09/25/22 08:59 Last Admin: 08/27/22 09:25 Dose: 40 mg Sodium Chloride (Sodium Chloride 0.65% Na Soln 45 Ml ([place])) 1 - 2 sprays NA PRN PRN PRN Reason: Nasal Dryness/Congestion Stop: 09/18/22 13:04 Mental Health & Subst Abuse Tx Therapist Name of Therapist: Hubert Martinez Acid Tank Liner Name of Acid Tank Liner: DANIE Watkins Post Discharge Appointments Primary Care Physician Name Of Family Doctor/PCP: Hubert Mcpherson Specialist Name of Specialist: [facility] - Dr. Avila Phone Number for Specialist: Date of Appointment with Specialist: 09/10/22 Time of Appointment with Specialist: 3:30pm Specialty Appointment Comment: [address]; [address], [place], [place]
[2022-08-28] MEDS: PANTOprazole 40 MG TAB PO SCH (08:53)
--- NOTE | 2022-08-28 13:42 | Psychiatric Progress Note ---
Date of Service August 28, 2022 Impression / Recommendations Impression 21 yo female with a history of mood dysregulation, complex trauma hx, worsening depression on transition to living independently as an adult, limited coping skills tested by ACL repair. Diagnostically consistent with recurrent MDD in context of limited coping skills and social isolation and increasingly presents with likely cluster B traits/BPD given chronicity of her SI and very limited coping skills for emotional distress/self-harm urges. MNPR due to social skills, knee recovery, limited distress tolerance 08/28/2022: prepping for transition to [facility] (1) MDD (major depressive disorder), recurrent episode, severe: (2) Post traumatic stress disorder (PTSD): (3) S/P ACL reconstruction: (4) Intellectual disability: Inventory Assets Strengths: accepting of services, cooperative with unit routines Needs: improve coping skills, ongoing CM involvement in placement options Suicide Risk Level Suicide Risk Level: Moderate (q15 min suicide checks) Risk Factors Assessment : Yes Do You Have Access To A Gun?: No Health Problems: Yes Mental Health Diagnoses: Yes Substance Use Disorders: No Previous Psychiatric Hospitalization: Yes Protective Factors Assessment Stable Relationships: Yes Interval History Identifying Information BAUTISTA ALLRED is a 21-year-old F who currently lives in [place], has a history of several inpatient stays on 3 S (most recently 07/24), and was admitted on 07/21/22 18:29 on a 201 voluntary commitment s/p medical admission for suicide attempt by OD. Chief Complaint "I'm good". Review of Systems Sleep Information Total Hours of Sleep: 7 Meal Information Percent Meal Consumed - Breakfast: 100 Percent Meal Consumed - Lunch: 100 Percent Meal Consumed - Dinner: 100 Nutrition Comment: per paper documentation Subjective Subjective Patient was seen & assessed and interval progress reviewed with nursing and social work. No acute issues overnight. More spontaneous in conversation. Extensive intake paperwork filled out for [facility] by this MD Physical Exam Psychiatric alert, cooperative, no SI/hI/fisher, thoughts organized but concrete Vital Signs (Past 24 Hours) Last Vital Signs Temp 37.0 C 08/27/22 20:00 Pulse 102 H 08/26/22 06:39 Resp 16 08/26/22 06:38 BP 113/83 08/26/22 06:39 Pulse Ox 97 08/25/22 06:00 O2 Del Method 08/25/22 06:00 Results & Data ([facility]) Current Inpatient Medications Current Inpatient Medications: Current Inpatient Medications Acetaminophen (Acetaminophen 325 Mg Tab) 650 mg PO Q4H PRN PRN Reason: Headache or Minor Fever Stop: 09/18/22 12:59 Last Admin: 08/20/22 12:39 Dose: 650 mg Al Hydrox/Mg Hydrox/Simethicone (Aluminum/Magnesium Susp 30 Ml Udc) 30 ml PO Q4H PRN PRN Reason: GI Upset Stop: 09/18/22 12:59 Aripiprazole (Aripiprazole 400 Mg Pre-Filled Syringe) 400 mg IM TODAY@0900 [facility] Stop: 09/03/22 09:01 Bismuth Subsalicylate (Bismuth Subsalicylate Liqd 236 Ml) 15 ml PO PRN PRN PRN Reason: Loose Stool Stop: 09/18/22 12:59 Buspirone HCl (Buspirone 5 Mg Tab) 5 mg PO TID PRN PRN Reason: Anxiety/Agitation Stop: 09/18/22 12:59 Last Admin: 08/25/22 13:15 Dose: 5 mg Clonazepam (Clonazepam 0.25 Mg Tab) 0.25 mg PO DAILY PRN PRN Reason: panic attack Stop: 09/18/22 13:54 Last Admin: 08/19/22 21:54 Dose: 0.25 mg Magnesium Hydroxide (Magnesium Hydroxide Susp 30 Ml Udc) 30 ml PO DAILY PRN PRN Reason: Constipation Stop: 09/18/22 12:59 Multi-Ingredient Cream (Eucerin Cr 120 Gm Jar) 1 appln EXT DAILY PRN PRN Reason: dry skin over knee Stop: 09/18/22 12:59 Ondansetron HCl (Ondansetron 4 Mg Od Tab) 4 mg PO Q6H PRN PRN Reason: Nausea Stop: 09/18/22 12:59 Last Admin: 08/27/22 13:34 Dose: 4 mg Pantoprazole Sodium (Pantoprazole 40 Mg Tab) 40 mg PO QAM IFEOMA Stop: 09/25/22 08:59 Last Admin: 08/28/22 08:53 Dose: 40 mg Sodium Chloride (Sodium Chloride 0.65% Na Soln 45 Ml ([place])) 1 - 2 sprays NA PRN PRN PRN Reason: Nasal Dryness/Congestion Stop: 09/18/22 13:04 Mental Health & Subst Abuse Tx Therapist Name of Therapist: Hubert [facility] Assisted Living Care Manager Name of Assisted Living Care Manager: DANIE Watkins Post Discharge Appointments Primary Care Physician Name Of Family Doctor/PCP: Hubert Mcpherson Specialist Name of Specialist: [facility] - Dr. Avila Phone Number for Specialist: Date of Appointment with Specialist: 09/10/22 Time of Appointment with Specialist: 3:30pm Specialty Appointment Comment: [address]; [address], [place], [place]
[2022-08-29] MEDS: PANTOprazole 40 MG TAB PO SCH (09:18)
--- NOTE | 2022-08-29 18:13 | Psychiatric Progress Note ---
Date of Service August 29, 2022 Impression / Recommendations Impression 21 yo female with a history of mood dysregulation, complex trauma hx, worsening depression on transition to living independently as an adult, limited coping skills tested by ACL repair. Diagnostically consistent with recurrent MDD in context of limited coping skills and social isolation and increasingly presents with likely cluster B traits/BPD given chronicity of her SI and very limited coping skills for emotional distress/self-harm urges. MNPR due to social skills, knee recovery, limited distress tolerance 08/29/22: Continues slowly to improve, participating more appropriately in the milieu. Her limited insight and emotional vocabulary make it difficult for her to describe in much detail her symptoms. However, she says she thinks "the medications are OK" and attributes no side effects to them. 08/28/2022: prepping for transition to [facility] (1) MDD (major depressive disorder), recurrent episode, severe: (2) Post traumatic stress disorder (PTSD): (3) S/P ACL reconstruction: (4) Intellectual disability: Plan 08/29/22: pt requests no change in medication as she says she thinks she is seeing some benefit 08/27/22: accepted to [facility], unable to be safely discharged to the community without [facility] level of support or would readily decompensate. 08/25/22: d/c Lamictal. Desires trial of d/c antacid to once daily to minimize number of pills. Renetta andrewstenna due 09/03/22. 08/22/22: holding Lamictal at 50 mg until "rash" resolves per patient request. 08/21/2022: titrate Lamictal 100 mg daily. 08/19/22: Add KLonopin 0.25mg daily prn for panic attacks. 08/18/22: Continue current medications and tx plan. 08/17/22: Continue current medications and tx plan. 08/16/22: Discontinue Klonopin as may be contributing to daytime fatigue. 08/15/22: Continue current medications and tx plan. 08/14/22: Continue current medications and tx plan. 08/13/22: Continue current medications and tx plan. 08/12/22: Continue current medications and tx plan. 08/11/22: Continue current medications and tx plan. Ongoing coordination with [facility] regarding potential services for co-morbid intellectual disability. 08/10/22: Taper Klonopin to 0.25mg qd given concerns of disinhibition. 08/09/22: Continue current medications and tx plan. 08/08/2022: Continue current medications and tx plan. 08/07/2022: titrate lamictal to 50mg qhs. 08/04/2022: Abilify maintenna today, awaiting addition input from CM on diversion 08/03/2022: Continue current medications and tx plan. Option for abilify MORELOS tomorrow if she is interested. 08/02/22: Ongoing insight-oriented approach. Continue current medications and tx plan. 08/01/22: Continue with current medications and tx plan. 07/31/22: Continue with current medications and tx plan. EKG tomorrow to reassess QTc. 07/30/22: Increase abilify to 20mg qd. 07/29/22: Continue with current medications and tx plan. 07/28/22: Increase abilify to 15mg tomorrow morning 07/27/22: Continue with current medications and tx plan. 07/26/22: titrate Abilify to 10 mg starting tomorrow 07/25/22: continue daily ekGs to titrate Abilify to 20 mg in intervals. Monitor sedation on Klonopin, gait is steady, will move 2nd dose to hs. CXR for TB clearance for anticipated [facility] referral. 07/24/22: risks/benefits/alternatives reviewed re: Klonopin trial given random breakthrough anxiety. Discussed resuming Abilify oral dosing so can adjust/monitor QTc. Daily EKG ordered. patient agreeable and will start Abilify 5 mg daily today and Klonopin 0.25 mg po BID. She is ambulating well without her brace. consult PT for final exercises. 07/23/22: d/c Buspar as may be having residual serotonergic sensitivity, daily EKG per hospitalist recommendation, repeat labs unremarkable, vitals stable. Zofran prn. Hold Abilify maintenna due to day given QTc. 07/22/22: The patient was admitted to the [facility] ([facility] mental health unit) on q15 min checks (behavioral with suicide precautions) for safety. The patient will participate in group, recreational, and milieu therapies and will be offered additional individual and family sessions as clinically appropriate. Restarted Buspar on medical floor, repeat EKG in am to determine appropriateness of Abilify maintenna that is due. Hold Zyprexa. She is aware that would not recommend resume Vistaril or Lexapro. Will offer Buspar 5 mg TID prn as well as frequently requests prn and want to avoid benzos. Restart lamictal as plan of outpatient provider and has never titrated. PT consult as still receiving outpatient PT. Explore possible state hospital referral given need for longer term hospitalization. Inventory Assets Strengths: accepting of services, cooperative with unit routines Needs: improve coping skills, ongoing CM involvement in placement options Suicide Risk Level Suicide Risk Level: Moderate (q15 min suicide checks) Risk Factors Assessment Male: No : Yes Do You Have Access To A Gun?: No Health Problems: Yes Mental Health Diagnoses: Yes Substance Use Disorders: No Previous Psychiatric Hospitalization: Yes Protective Factors Assessment Stable Relationships: Yes Interval History Identifying Information BAUTISTA ALLRED is a 21-year-old F who currently lives in [place], has a history of several inpatient stays on 3 S (most recently 07/24), and was admitted on 07/21/22 18:29 on a 201 voluntary commitment s/p medical admission for suicide attempt by OD. Chief Complaint "A little better". Review of Systems Sleep Information Total Hours of Sleep: 8.25 Meal Information Percent Meal Consumed - Breakfast: 100 Percent Meal Consumed - Lunch: 100 Percent Meal Consumed - Dinner: 50 Nutrition Comment: per paper documentation Subjective Subjective Patient was seen & assessed and interval progress reviewed with treatment team nursing and social work. She was reasonably interactive with me, if a bit reserved. She says she's "looking forward to going to the [facility]", though she couldn't tell me what that was. Physical Exam Psychiatric Orientation: alert and oriented x 3 Apperance: appropriately dressed and appropriately groomed Eye Contact: + fair eye contact Motor Behavior: no abnormal motor movements Speech: normal rate/rhythm/volume of speech Affect: euthymic affect Mood: + anxious mood; no depressed mood, no irritable mood and no angry mood Thought Process: + circumstantial thought process (sparse) and + concrete thought process Thought Content: reality based without delusions Suicidal Thoughts: denies suicidal thoughts, denies suicidal plan and denies suicidal intent Homicidal Thoughts: denies homicidal thoughts Hallucinations: no auditory hallucinations and no visual hallucinations Cognition: attention grossly intact and language grossly intact Estimated Intelligence: consistent with education level and + below average estimated intelligence Insight: + limited insight Judgement: + limited judgement Vital Signs (Past 24 Hours) Last Vital Signs Temp 37.1 C 08/28/22 19:26 Pulse 102 H 08/26/22 06:39 Resp 16 08/26/22 06:38 BP 113/83 08/26/22 06:39 Pulse Ox 97 08/25/22 06:00 O2 Del Method 08/25/22 06:00 Results & Data ([facility]) Current Inpatient Medications Current Inpatient Medications: Current Inpatient Medications Acetaminophen (Acetaminophen 325 Mg Tab) 650 mg PO Q4H PRN PRN Reason: Headache or Minor Fever Stop: 09/18/22 12:59 Last Admin: 08/20/22 12:39 Dose: 650 mg Al Hydrox/Mg Hydrox/Simethicone (Aluminum/Magnesium Susp 30 Ml Udc) 30 ml PO Q4H PRN PRN Reason: GI Upset Stop: 09/18/22 12:59 Aripiprazole (Aripiprazole 400 Mg Pre-Filled Syringe) 400 mg IM TODAY@0900 IFEOMA Stop: 09/03/22 09:01 Bismuth Subsalicylate (Bismuth Subsalicylate Liqd 236 Ml) 15 ml PO PRN PRN PRN Reason: Loose Stool Stop: 09/18/22 12:59 Buspirone HCl (Buspirone 5 Mg Tab) 5 mg PO TID PRN PRN Reason: Anxiety/Agitation Stop: 09/18/22 12:59 Last Admin: 08/25/22 13:15 Dose: 5 mg Clonazepam (Clonazepam 0.25 Mg Tab) 0.25 mg PO DAILY PRN PRN Reason: panic attack Stop: 09/18/22 13:54 Last Admin: 08/19/22 21:54 Dose: 0.25 mg Magnesium Hydroxide (Magnesium Hydroxide Susp 30 Ml Udc) 30 ml PO DAILY PRN PRN Reason: Constipation Stop: 09/18/22 12:59 Multi-Ingredient Cream (Eucerin Cr 120 Gm Jar) 1 appln EXT DAILY PRN PRN Reason: dry skin over knee Stop: 09/18/22 12:59 Ondansetron HCl (Ondansetron 4 Mg Od Tab) 4 mg PO Q6H PRN PRN Reason: Nausea Stop: 09/18/22 12:59 Last Admin: 08/27/22 13:34 Dose: 4 mg Pantoprazole Sodium (Pantoprazole 40 Mg Tab) 40 mg PO QAM IFEOMA Stop: 09/25/22 08:59 Last Admin: 08/29/22 09:18 Dose: 40 mg Sodium Chloride (Sodium Chloride 0.65% Na Soln 45 Ml ([place])) 1 - 2 sprays NA PRN PRN PRN Reason: Nasal Dryness/Congestion Stop: 09/18/22 13:04 Mental Health & Subst Abuse Tx Therapist Name of Therapist: Hubert Martinez Childcare Teacher Name of Childcare Teacher: DANIE Watkins Post Discharge Appointments Primary Care Physician Name Of Family Doctor/PCP: Hubert Mcpherson Specialist [facility] Dr. Avila Phone Number for Specialist: Date of Appointment with Specialist: 09/10/22 Time of Appointment with Specialist: 3:30pm Specialty Appointment Comment: [address]; [address], [place], [place]
[2022-08-29] MEDS: BISMUTH SUBSALICYLATE LIQD 236 ML PO PRN ×2 (18:17→20:12)
[2022-08-30] MEDS: PANTOprazole 40 MG TAB PO SCH (08:50)
--- NOTE | 2022-08-31 07:57 | Psychiatric Progress Note ---
Date of Service August 30, 2022 Impression / Recommendations Impression 21 yo female with a history of mood dysregulation, complex trauma hx, worsening depression on transition to living independently as an adult, limited coping skills tested by ACL repair. Diagnostically consistent with recurrent MDD in context of limited coping skills and social isolation and increasingly presents with likely cluster B traits/BPD given chronicity of her SI and very limited coping skills for emotional distress/self-harm urges. MNPR due to social skills, knee recovery, limited distress tolerance 08/30/22: Has been out and participating in the milieu. Exhibits episodes of irritability but is redirectable. 08/29/22: Continues slowly to improve, participating more appropriately in the milieu. Her limited insight and emotional vocabulary make it difficult for her to describe in much detail her symptoms. However, she says she thinks "the medications are OK" and attributes no side effects to them. 08/28/2022: prepping for transition to [facility] (1) MDD (major depressive disorder), recurrent episode, severe: (2) Post traumatic stress disorder (PTSD): (3) S/P ACL reconstruction: (4) Intellectual disability: Plan 08/30/22: Continue current medications and treatment plan 08/29/22: pt requests no change in medication as she says she thinks she is seeing some benefit 08/27/22: accepted to [facility], unable to be safely discharged to the community without [facility] level of support or would readily decompensate. 08/25/22: d/c Lamictal. Desires trial of d/c antacid to once daily to minimize number of pills. Abilify darryltenna due 09/03/22. 08/22/22: holding Lamictal at 50 mg until "rash" resolves per patient request. 08/21/2022: titrate Lamictal 100 mg daily. 08/19/22: Add KLonopin 0.25mg daily prn for panic attacks. 08/18/22: Continue current medications and tx plan. 08/17/22: Continue current medications and tx plan. 08/16/22: Discontinue Klonopin as may be contributing to daytime fatigue. 08/15/22: Continue current medications and tx plan. 08/14/22: Continue current medications and tx plan. 08/13/22: Continue current medications and tx plan. 08/12/22: Continue current medications and tx plan. 08/11/22: Continue current medications and tx plan. Ongoing coordination with community health regarding potential services for co-morbid intellectual disability. 08/10/22: Taper Klonopin to 0.25mg qd given concerns of disinhibition. 08/09/22: Continue current medications and tx plan. 08/08/2022: Continue current medications and tx plan. 08/07/2022: titrate lamictal to 50mg qhs. 08/04/2022: Abilify maintenna today, awaiting addition input from CM on diversion 08/03/2022: Continue current medications and tx plan. Option for abilify MORELOS tomorrow if she is interested. 08/02/22: Ongoing insight-oriented approach. Continue current medications and tx plan. 08/01/22: Continue with current medications and tx plan. 07/31/22: Continue with current medications and tx plan. EKG tomorrow to reassess QTc. 07/30/22: Increase abilify to 20mg qd. 07/29/22: Continue with current medications and tx plan. 07/28/22: Increase abilify to 15mg tomorrow morning 07/27/22: Continue with current medications and tx plan. 07/26/22: titrate Abilify to 10 mg starting tomorrow 07/25/22: continue daily ekGs to titrate Abilify to 20 mg in intervals. Monitor sedation on Klonopin, gait is steady, will move 2nd dose to hs. CXR for TB clearance for anticipated [facility] referral. 07/24/22: risks/benefits/alternatives reviewed re: Klonopin trial given random breakthrough anxiety. Discussed resuming Abilify oral dosing so can adjust/monitor QTc. Daily EKG ordered. patient agreeable and will start Abilify 5 mg daily today and Klonopin 0.25 mg po BID. She is ambulating well without her brace. consult PT for final exercises. 07/23/22: d/c Buspar as may be having residual serotonergic sensitivity, daily EKG per hospitalist recommendation, repeat labs unremarkable, vitals stable. Zofran prn. Hold Abilify maintenna due to day given QTc. 07/22/22: The patient was admitted to the [facility] (locked inpatient mental health unit) on q15 min checks (behavioral with suicide precautions) for safety. The patient will participate in group, recreational, and milieu therapies and will be offered additional individual and family sessions as clinically appropriate. Restarted Buspar on medical floor, repeat EKG in am to determine appropriateness of Abilify maintenna that is due. Hold Zyprexa. She is aware that would not recommend resume Vistaril or Lexapro. Will offer Buspar 5 mg TID prn as well as frequently requests prn and want to avoid benzos. Restart lamictal as plan of outpatient provider and has never titrated. PT consult as still receiving outpatient PT. Explore possible state hospital referral given need for longer term hospitalization. Inventory Assets Strengths: accepting of services, cooperative with unit routines Needs: improve coping skills, ongoing CM involvement in placement options Suicide Risk Level Suicide Risk Level: Moderate (q15 min suicide checks) Risk Factors Assessment Male: No : Yes Do You Have Access To A Gun?: No Health Problems: Yes Mental Health Diagnoses: Yes Substance Use Disorders: No Previous Psychiatric Hospitalization: Yes Protective Factors Assessment Stable Relationships: Yes Interval History Identifying Information BAUTISTA ALLRED is a 21-year-old F who currently lives in [place], has a history of several inpatient stays on 3 S (most recently 07/24), and was admitted on 07/21/22 18:29 on a 201 voluntary commitment s/p medical admission for suicide attempt by OD. Chief Complaint "[I'm OK]". Review of Systems Sleep Information Total Hours of Sleep: 7.5 Meal Information Percent Meal Consumed - Breakfast: 100 Percent Meal Consumed - Lunch: 100 Percent Meal Consumed - Dinner: 100 Nutrition Comment: per paper documentation Subjective Subjective Patient was seen & assessed and interval progress reviewed with treatment team nursing and social work Physical Exam Psychiatric Orientation: alert and oriented x 3 Apperance: appropriately dressed and appropriately groomed Eye Contact: + fair eye contact Motor Behavior: no abnormal motor movements Speech: normal rate/rhythm/volume of speech Affect: + blunted affect Mood: + anxious mood; no depressed mood, no irritable mood and no angry mood Thought Process: + circumstantial thought process (sparse) and + concrete thought process Thought Content: reality based without delusions Suicidal Thoughts: denies suicidal thoughts, denies suicidal plan and denies suicidal intent Homicidal Thoughts: denies homicidal thoughts Hallucinations: no auditory hallucinations and no visual hallucinations Cognition: attention grossly intact and language grossly intact Estimated Intelligence: consistent with education level and + below average estimated intelligence Insight: + limited insight Judgement: + limited judgement Vital Signs (Past 24 Hours) Last Vital Signs Temp 36.6 C 08/30/22 20:00 Pulse 102 H 08/26/22 06:39 Resp 16 08/26/22 06:38 BP 113/83 08/26/22 06:39 Pulse Ox 97 08/25/22 06:00 O2 Del Method 08/25/22 06:00 Results & Data ([facility]) Current Inpatient Medications Current Inpatient Medications: Current Inpatient Medications Acetaminophen (Acetaminophen 325 Mg Tab) 650 mg PO Q4H PRN PRN Reason: Headache or Minor Fever Stop: 09/18/22 12:59 Last Admin: 08/20/22 12:39 Dose: 650 mg Al Hydrox/Mg Hydrox/Simethicone (Aluminum/Magnesium Susp 30 Ml Udc) 30 ml PO Q4H PRN PRN Reason: GI Upset Stop: 09/18/22 12:59 Aripiprazole (Aripiprazole 400 Mg Pre-Filled Syringe) 400 mg IM TODAY@0900 IFEOMA Stop: 09/03/22 09:01 Bismuth Subsalicylate (Bismuth Subsalicylate Liqd 236 Ml) 15 ml PO PRN PRN PRN Reason: Loose Stool Stop: 09/18/22 12:59 Last Admin: 08/29/22 20:12 Dose: 15 ml Buspirone HCl (Buspirone 5 Mg Tab) 5 mg PO TID PRN PRN Reason: Anxiety/Agitation Stop: 09/18/22 12:59 Last Admin: 08/25/22 13:15 Dose: 5 mg Clonazepam (Clonazepam 0.25 Mg Tab) 0.25 mg PO DAILY PRN PRN Reason: panic attack Stop: 09/18/22 13:54 Last Admin: 08/19/22 21:54 Dose: 0.25 mg Magnesium Hydroxide (Magnesium Hydroxide Susp 30 Ml Udc) 30 ml PO DAILY PRN PRN Reason: Constipation Stop: 09/18/22 12:59 Multi-Ingredient Cream (Eucerin Cr 120 Gm Jar) 1 appln EXT DAILY PRN PRN Reason: dry skin over knee Stop: 09/18/22 12:59 Ondansetron HCl (Ondansetron 4 Mg Od Tab) 4 mg PO Q6H PRN PRN Reason: Nausea Stop: 09/18/22 12:59 Last Admin: 08/27/22 13:34 Dose: 4 mg Pantoprazole Sodium (Pantoprazole 40 Mg Tab) 40 mg PO QAM IFEOMA Stop: 09/25/22 08:59 Last Admin: 08/30/22 08:50 Dose: 40 mg Sodium Chloride (Sodium Chloride 0.65% Na Soln 45 Ml ([place])) 1 - 2 sprays NA PRN PRN PRN Reason: Nasal Dryness/Congestion Stop: 09/18/22 13:04 Mental Health & Subst Abuse Tx Therapist Name of Therapist: Hubert Martinez Line Clearance Foreman Name of Line Clearance Foreman: DANIE Watkins Post Discharge Appointments Primary Care Physician Name Of Family Doctor/PCP: Hubert Mcpherson Specialist Name of Specialist: [facility] - Dr. Avila Phone Number for Specialist: Date of Appointment with Specialist: 09/10/22 Time of Appointment with Specialist: 3:30pm Specialty Appointment Comment: [address]; [address], [place], [place]
[2022-08-31] MEDS: PANTOprazole 40 MG TAB PO SCH (08:09)
--- NOTE | 2022-08-31 12:16 | Psychiatric Progress Note ---
Date of Service August 31, 2022 Impression / Recommendations Impression 21 yo female with a history of mood dysregulation, complex trauma hx, worsening depression on transition to living independently as an adult, limited coping skills tested by ACL repair. Diagnostically consistent with recurrent MDD in context of limited coping skills and social isolation and increasingly presents with likely cluster B traits/BPD given chronicity of her SI and very limited coping skills for emotional distress/self-harm urges. MNPR due to social skills, knee recovery, limited distress tolerance 08/21/22: Has "been happy about new people" admitted to the unit yesterday and today. Affect appropriate. No evidence of side effects attributable to medication. Pt continues to look forward to planned discharge. 08/30/22: Has been out and participating in the milieu. Exhibits episodes of irritability but is redirectable. 08/29/22: Continues slowly to improve, participating more appropriately in the milieu. Her limited insight and emotional vocabulary make it difficult for her to describe in much detail her symptoms. However, she says she thinks "the medications are OK" and attributes no side effects to them. 08/28/2022: prepping for transition to [facility] (1) MDD (major depressive disorder), recurrent episode, severe: (2) Post traumatic stress disorder (PTSD): (3) S/P ACL reconstruction: (4) Intellectual disability: Plan 08/31/22: No change in medication indicated. She should probably have a HgbA1c soon. 08/30/22: Continue current medications and treatment plan 08/29/22: pt requests no change in medication as she says she thinks she is seeing some benefit 08/27/22: accepted to [facility], unable to be safely discharged to the community without [facility] level of support or would readily decompensate. 08/25/22: d/c Lamictal. Desires trial of d/c antacid to once daily to minimize number of pills. Abilify josé miguelna due 09/03/22. 08/22/22: holding Lamictal at 50 mg until "rash" resolves per patient request. 08/21/2022: titrate Lamictal 100 mg daily. 08/19/22: Add KLonopin 0.25mg daily prn for panic attacks. 08/18/22: Continue current medications and tx plan. 08/17/22: Continue current medications and tx plan. 08/16/22: Discontinue Klonopin as may be contributing to daytime fatigue. 08/15/22: Continue current medications and tx plan. 08/14/22: Continue current medications and tx plan. 08/13/22: Continue current medications and tx plan. 08/12/22: Continue current medications and tx plan. 08/11/22: Continue current medications and tx plan. Ongoing coordination with [facility] regarding potential services for co-morbid intellectual disability. 08/10/22: Taper Klonopin to 0.25mg qd given concerns of disinhibition. 08/09/22: Continue current medications and tx plan. 08/08/2022: Continue current medications and tx plan. 08/07/2022: titrate lamictal to 50mg qhs. 08/04/2022: Abilify maintenna today, awaiting addition input from CM on diversion 08/03/2022: Continue current medications and tx plan. Option for abilify MORELOS tomorrow if she is interested. 08/02/22: Ongoing insight-oriented approach. Continue current medications and tx plan. 08/01/22: Continue with current medications and tx plan. 07/31/22: Continue with current medications and tx plan. EKG tomorrow to reassess QTc. 07/30/22: Increase abilify to 20mg qd. 07/29/22: Continue with current medications and tx plan. 07/28/22: Increase abilify to 15mg tomorrow morning 07/27/22: Continue with current medications and tx plan. 07/26/22: titrate Abilify to 10 mg starting tomorrow 07/25/22: continue daily ekGs to titrate Abilify to 20 mg in intervals. Monitor sedation on Klonopin, gait is steady, will move 2nd dose to hs. CXR for TB clearance for anticipated [facility] referral. 07/24/22: risks/benefits/alternatives reviewed re: Klonopin trial given random breakthrough anxiety. Discussed resuming Abilify oral dosing so can adjust/monitor QTc. Daily EKG ordered. patient agreeable and will start Abilify 5 mg daily today and Klonopin 0.25 mg po BID. She is ambulating well without her brace. consult PT for final exercises. 07/23/22: d/c Buspar as may be having residual serotonergic sensitivity, daily EKG per hospitalist recommendation, repeat labs unremarkable, vitals stable. Zofran prn. Hold Abilify maintenna due to day given QTc. 07/22/22: [facility] on q15 min checks (behavioral with suicide precautions) for safety. The patient will participate in group, recreational, and milieu therapies and will be offered additional individual and family sessions as clinically appropriate. Restarted Buspar on medical floor, repeat EKG in am to determine appropriateness of Abilify maintenna that is due. Hold Zyprexa. She is aware that would not recommend resume Vistaril or Lexapro. Will offer Buspar 5 mg TID prn as well as frequently requests prn and want to avoid benzos. Restart lamictal as plan of outpatient provider and has never titrated. PT consult as still receiving outpatient PT. Explore possible [facility] referral given need for longer term hospitalization. Inventory Assets Strengths: accepting of services, cooperative with unit routines Needs: improve coping skills, ongoing CM involvement in placement options Suicide Risk Level Suicide Risk Level: Moderate (q15 min suicide checks) Risk Factors Assessment Male: No : Yes Do You Have Access To A Gun?: No Health Problems: Yes Mental Health Diagnoses: Yes Substance Use Disorders: No Previous Psychiatric Hospitalization: Yes Protective Factors Assessment Stable Relationships: Yes Interval History Identifying Information BAUTISTA ALLRED is a 21-year-old F who currently lives in [place], has a history of several inpatient stays on 3 S (most recently 07/24), and was admitted on 07/21/22 18:29 on a 201 voluntary commitment s/p medical admission for suicide attempt by OD. Chief Complaint "Not bad". Review of Systems Sleep Information Total Hours of Sleep: 7.5 Meal Information Percent Meal Consumed - Breakfast: 100 Percent Meal Consumed - Lunch: 100 Percent Meal Consumed - Dinner: 100 Nutrition Comment: per paper documentation Subjective Subjective Patient was seen & assessed and interval progress reviewed with treatment team nursing and social work Physical Exam Psychiatric Orientation: alert and oriented x 3 Apperance: appropriately dressed and appropriately groomed Eye Contact: + fair eye contact Motor Behavior: no abnormal motor movements Speech: normal rate/rhythm/volume of speech Affect: + blunted affect Mood: + anxious mood; no depressed mood, no irritable mood and no angry mood Thought Process: + circumstantial thought process (sparse) and + concrete th ought process Thought Content: reality based without delusions Suicidal Thoughts: denies suicidal thoughts, denies suicidal plan and denies suicidal intent Homicidal Thoughts: denies homicidal thoughts Hallucinations: no auditory hallucinations and no visual hallucinations Cognition: attention grossly intact and language grossly intact Estimated Intelligence: + below average estimated intelligence Insight: + limited insight Judgement: + limited judgement Vital Signs (Past 24 Hours) Last Vital Signs Temp 36.6 C 08/30/22 20:00 Pulse 102 H 08/26/22 06:39 Resp 16 08/26/22 06:38 BP 113/83 08/26/22 06:39 Pulse Ox 97 08/25/22 06:00 O2 Del Method 08/25/22 06:00 Results & Data ([facility]) Current Inpatient Medications Current Inpatient Medications: Current Inpatient Medications Acetaminophen (Acetaminophen 325 Mg Tab) 650 mg PO Q4H PRN PRN Reason: Headache or Minor Fever Stop: 09/18/22 12:59 Last Admin: 08/20/22 12:39 Dose: 650 mg Al Hydrox/Mg Hydrox/Simethicone (Aluminum/Magnesium Susp 30 Ml Udc) 30 ml PO Q4H PRN PRN Reason: GI Upset Stop: 09/18/22 12:59 Aripiprazole (Aripiprazole 400 Mg Pre-Filled Syringe) 400 mg IM TODAY@0900 IFEOMA Stop: 09/03/22 09:01 Bismuth Subsalicylate (Bismuth Subsalicylate Liqd 236 Ml) 15 ml PO PRN PRN PRN Reason: Loose Stool Stop: 09/18/22 12:59 Last Admin: 08/29/22 20:12 Dose: 15 ml Buspirone HCl (Buspirone 5 Mg Tab) 5 mg PO TID PRN PRN Reason: Anxiety/Agitation Stop: 09/18/22 12:59 Last Admin: 08/25/22 13:15 Dose: 5 mg Clonazepam (Clonazepam 0.25 Mg Tab) 0.25 mg PO DAILY PRN PRN Reason: panic attack Stop: 09/18/22 13:54 Last Admin: 08/19/22 21:54 Dose: 0.25 mg Magnesium Hydroxide (Magnesium Hydroxide Susp 30 Ml Udc) 30 ml PO DAILY PRN PRN Reason: Constipation Stop: 09/18/22 12:59 Multi-Ingredient Cream (Eucerin Cr 120 Gm Jar) 1 appln EXT DAILY PRN PRN Reason: dry skin over knee Stop: 09/18/22 12:59 Ondansetron HCl (Ondansetron 4 Mg Od Tab) 4 mg PO Q6H PRN PRN Reason: Nausea Stop: 09/18/22 12:59 Last Admin: 08/27/22 13:34 Dose: 4 mg Pantoprazole Sodium (Pantoprazole 40 Mg Tab) 40 mg PO QAM IFEOMA Stop: 09/25/22 08:59 Last Admin: 08/31/22 08:09 Dose: 40 mg Sodium Chloride (Sodium Chloride 0.65% Na Soln 45 Ml ([employer])) 1 - 2 sprays NA PRN PRN PRN Reason: Nasal Dryness/Congestion Stop: 09/18/22 13:04 Mental Health & Subst Abuse Tx Therapist Name of Therapist: Hubert Martinez Entry Writer Name of Entry Writer: DANIE Watkins Post Discharge Appointments Primary Care Physician Name Of Family Doctor/PCP: Hubert Mcpherson Specialist Name of Specialist: [facility] - Dr. Avila Phone Number for Specialist: Date of Appointment with Specialist: 09/10/22 Time of Appointment with Specialist: 3:30pm Specialty Appointment Comment: [address]; [address], [place], [place]
[2022-08-31] MEDS: busPIRone 5 MG TAB PO PRN (19:45)
--- NOTE | 2022-09-01 07:35 | Psychiatric Progress Note ---
Date of Service September 01, 2022 Impression / Recommendations Impression 21 yo female with a history of mood dysregulation, complex trauma hx, worsening depression on transition to living independently as an adult, limited coping skills tested by ACL repair. Diagnostically consistent with recurrent MDD in context of limited coping skills and social isolation and increasingly presents with likely cluster B traits/BPD given chronicity of her SI and very limited coping skills for emotional distress/self-harm urges. MNPR due to social skills, knee recovery, limited distress tolerance 09/01/22: Tells me her "medicine isn't working anymore". Can't identify any new or worse symptoms other than feeling "just a little off". Discussed this at some length, especially in light of her regimen that includes 7 medications prescribed for psychiatric reasons and my concern that making changes might be just as likely to make her feel worse rather than better. Recent changes in the milieu (discharges and admissions yesterday) may account for her feeling "off". 08/31/22: Has "been happy about new people" admitted to the unit yesterday and today. Affect appropriate. No evidence of side effects attributable to medication. Pt continues to look forward to planned discharge. 08/30/22: Has been out and participating in the milieu. Exhibits episodes of irritability but is redirectable. 08/29/22: Continues slowly to improve, participating more appropriately in the milieu. Her limited insight and emotional vocabulary make it difficult for her to describe in much detail her symptoms. However, she says she thinks "the medications are OK" and attributes no side effects to them. 08/28/2022: prepping for transition to [facility] (1) MDD (major depressive disorder), recurrent episode, severe: (2) Post traumatic stress disorder (PTSD): (3) S/P ACL reconstruction: (4) Intellectual disability: Plan 09/01/22: Will avoid making medication changes in the absence of clear symptom targets but will monitor closely. 08/31/22: No change in medication indicated. She should probably have a HgbA1c soon. 08/30/22: Continue current medications and treatment plan 08/29/22: pt requests no change in medication as she says she thinks she is seeing some benefit 08/27/22: accepted to [facility], unable to be safely discharged to the community without [facility] level of support or would readily decompensate. 08/25/22: d/c Lamictal. Desires trial of d/c antacid to once daily to minimize number of pills. Abilify maintenna due 09/03/22. 08/22/22: holding Lamictal at 50 mg until "rash" resolves per patient request. 08/21/2022: titrate Lamictal 100 mg daily. 08/19/22: Add KLonopin 0.25mg daily prn for panic attacks. 08/18/22: Continue current medications and tx plan. 08/17/22: Continue current medications and tx plan. 08/16/22: Discontinue Klonopin as may be contributing to daytime fatigue. 08/15/22: Continue current medications and tx plan. 08/14/22: Continue current medications and tx plan. 08/13/22: Continue current medications and tx plan. 08/12/22: Continue current medications and tx plan. 08/11/22: Continue current medications and tx plan. Ongoing coordination with [facility] regarding potential services for co-morbid intellectual disability. 08/10/22: Taper Klonopin to 0.25mg qd given concerns of disinhibition. 08/09/22: Continue current medications and tx plan. 08/08/2022: Continue current medications and tx plan. 08/07/2022: titrate lamictal to 50mg qhs. 08/04/2022: Abilify maintenna today, awaiting addition input from CM on diversion 08/03/2022: Continue current medications and tx plan. Option for abilify MORELOS tomorrow if she is interested. 08/02/22: Ongoing insight-oriented approach. Continue current medications and tx plan. 08/01/22: Continue with current medications and tx plan. 07/31/22: Continue with current medications and tx plan. EKG tomorrow to reassess QTc. 07/30/22: Increase abilify to 20mg qd. 07/29/22: Continue with current medications and tx plan. 07/28/22: Increase abilify to 15mg tomorrow morning 07/27/22: Continue with current medications and tx plan. 07/26/22: titrate Abilify to 10 mg starting tomorrow 07/25/22: continue daily ekGs to titrate Abilify to 20 mg in intervals. Monitor sedation on Klonopin, gait is steady, will move 2nd dose to hs. CXR for TB clearance for [facility]. 07/24/22: risks/benefits/alternatives reviewed re: Klonopin trial given random breakthrough anxiety. Discussed resuming Abilify oral dosing so can adjust/monitor QTc. Daily EKG ordered. patient agreeable and will start Abilify 5 mg daily today and Klonopin 0.25 mg po BID. She is ambulating well without her brace. consult PT for final exercises. 07/23/22: d/c Buspar as may be having residual serotonergic sensitivity, daily EKG per hospitalist recommendation, repeat labs unremarkable, vitals stable. Zofran prn. Hold Abilify maintenna due to day given QTc. 07/22/22: The patient was admitted to the [facility] ([facility] mental health unit) on q15 min checks (behavioral with suicide precautions) for safety. The patient will participate in group, recreational, and milieu therapies and will be offered additional individual and family sessions as clinically appropriate. Restarted Buspar on medical floor, repeat EKG in am to determine appropriateness of Abilify maintenna that is due. Hold Zyprexa. She is aware that would not recommend resume Vistaril or Lexapro. Will offer Buspar 5 mg TID prn as well as frequently requests prn and want to avoid benzos. Restart lamictal as plan of outpatient provider and has never titrated. PT consult as still receiving outpatient PT. Explore possible state hospital referral given need for longer term hospitalization. Inventory Assets Strengths: accepting of services, cooperative with unit routines Needs: improve coping skills, ongoing CM involvement in placement options Suicide Risk Level Suicide Risk Level: Moderate (q15 min suicide checks) Risk Factors Assessment Male: No : Yes Do You Have Access To A Gun?: No Health Problems: Yes Mental Health Diagnoses: Yes Substance Use Disorders: No Previous Psychiatric Hospitalization: Yes Protective Factors Assessment Stable Relationships: Yes Interval History Identifying Information BAUTISTA ALLRED is a 21-year-old F who currently lives in [place], has a history of several inpatient stays on 3 S (most recently 07/24), and was admitted on 07/21/22 18:29 on a 201 voluntary commitment s/p medical admission for suicide attempt by OD. Chief Complaint "My medicine isn't working". Review of Systems Sleep Information Total Hours of Sleep: 7.5 Meal Information Percent Meal Consumed - Breakfast: 100 Percent Meal Consumed - Lunch: 100 Percent Meal Consumed - Dinner: 100 Nutrition Comment: per paper documentation Subjective Subjective Patient was seen & assessed and interval progress reviewed with treatment team nursing and social work Physical Exam Psychiatric Orientation: alert and oriented x 3 Apperance: appropriately dressed and appropriately groomed Eye Contact: + fair eye contact Motor Behavior: no abnormal motor movements Speech: normal rate/rhythm/volume of speech Affect: + blunted affect Mood: + anxious mood; no depressed mood, no irritable mood and no angry mood Thought Process: + circumstantial thought process (sparse) and + concrete thought process Thought Content: reality based without delusions Suicidal Thoughts: denies suicidal thoughts, denies suicidal plan and denies suicidal intent Homicidal Thoughts: denies homicidal thoughts Hallucinations: no auditory hallucinations and no visual hallucinations Cognition: attention grossly intact and language grossly intact Estimated Intelligence: + below average estimated intelligence Insight: + limited insight Judgement: + limited judgement Vital Signs (Past 24 Hours) Last Vital Signs Temp 36.7 C 08/31/22 20:00 Pulse 102 H 08/26/22 06:39 Resp 16 08/26/22 06:38 BP 113/83 08/26/22 06:39 Pulse Ox 97 08/25/22 06:00 O2 Del Method 08/25/22 06:00 Results & Data ([facility]) Current Inpatient Medications Current Inpatient Medications: Current Inpatient Medications Acetaminophen (Acetaminophen 325 Mg Tab) 650 mg PO Q4H PRN PRN Reason: Headache or Minor Fever Stop: 09/18/22 12:59 Last Admin: 08/20/22 12:39 Dose: 650 mg Al Hydrox/Mg Hydrox/Simethicone (Aluminum/Magnesium Susp 30 Ml Udc) 30 ml PO Q4H PRN PRN Reason: GI Upset Stop: 09/18/22 12:59 Aripiprazole (Aripiprazole 400 Mg Pre-Filled Syringe) 400 mg IM TODAY@0900 IFEOMA Stop: 09/03/22 09:01 Bismuth Subsalicylate (Bismuth Subsalicylate Liqd 236 Ml) 15 ml PO PRN PRN PRN Reason: Loose Stool Stop: 09/18/22 12:59 Last Admin: 08/29/22 20:12 Dose: 15 ml Buspirone HCl (Buspirone 5 Mg Tab) 5 mg PO TID PRN PRN Reason: Anxiety/Agitation Stop: 09/18/22 12:59 Last Admin: 08/31/22 19:45 Dose: 5 mg Clonazepam (Clonazepam 0.25 Mg Tab) 0.25 mg PO DAILY PRN PRN Reason: panic attack Stop: 09/18/22 13:54 Last Admin: 08/19/22 21:54 Dose: 0.25 mg Magnesium Hydroxide (Magnesium Hydroxide Susp 30 Ml Udc) 30 ml PO DAILY PRN PRN Reason: Constipation Stop: 09/18/22 12:59 Multi-Ingredient Cream (Eucerin Cr 120 Gm Jar) 1 appln EXT DAILY PRN PRN Reason: dry skin over knee Stop: 09/18/22 12:59 Ondansetron HCl (Ondansetron 4 Mg Od Tab) 4 mg PO Q6H PRN PRN Reason: Nausea Stop: 09/18/22 12:59 Last Admin: 08/27/22 13:34 Dose: 4 mg Pantoprazole Sodium (Pantoprazole 40 Mg Tab) 40 mg PO QAM IFEOMA Stop: 09/25/22 08:59 Last Admin: 08/31/22 08:09 Dose: 40 mg Sodium Chloride (Sodium Chloride 0.65% Na Soln 45 Ml ([place])) 1 - 2 sprays NA PRN PRN PRN Reason: Nasal Dryness/Congestion Stop: 09/18/22 13:04 Mental Health & Subst Abuse Tx Therapist Name of Therapist: Hubert Martinez Political Science Chair Name of Political Science Chair: DANIE Watkins Post Discharge Appointments Primary Care Physician Name Of Family Doctor/PCP: Hubert Mcpherson Special[facility]. Avila Phone Number for Specialist: Date of Appointment with Specialist: 09/10/22 Time of Appointment with Specialist: 3:30pm Specialty Appointment Comment: [address]; [address], [place], [place]
[2022-09-01] MEDS: PANTOprazole 40 MG TAB PO SCH (08:40)
[2022-09-01] MEDS: ACETAMINOPHEN 325 MG TAB PO PRN (17:34)
--- NOTE | 2022-09-02 07:55 | Psychiatric Progress Note ---
Date of Service September 02, 2022 Impression / Recommendations Impression 21 yo female with a history of mood dysregulation, complex trauma hx, worsening depression on transition to living independently as an adult, limited coping skills tested by ACL repair. Diagnostically consistent with recurrent MDD in context of limited coping skills and social isolation and increasingly presents with likely cluster B traits/BPD given chronicity of her SI and very limited coping skills for emotional distress/self-harm urges. MNPR due to social skills, knee recovery, limited distress tolerance 09/02/22: Much less interactive than I've seen her before. In bed at 1130 AM, difficult to awaken. Pulls covers over her head several times. Staff report that this has been seen previously and that her behavior yesterday evening was unremarkable. 09/01/22: Tells me her "medicine isn't working anymore". Can't identify any new or worse symptoms other than feeling "just a little off". Discussed this at some length, especially in light of her regimen that includes 7 medications prescribed for psychiatric reasons and my concern that making changes might be just as likely to make her feel worse rather than better. Recent changes in the milieu (discharges and admissions yesterday) may account for her feeling "off". 08/31/22: Has "been happy about new people" admitted to the unit yesterday and today. Affect appropriate. No evidence of side effects attributable to med ication. Pt continues to look forward to planned discharge. 08/30/22: Has been out and participating in the milieu. Exhibits episodes of irritability but is redirectable. 08/29/22: Continues slowly to improve, participating more appropriately in the milieu. Her limited insight and emotional vocabulary make it difficult for her to describe in much detail her symptoms. However, she says she thinks "the medications are OK" and attributes no side effects to them. 08/28/2022: prepping for transition to [facility] (1) MDD (major depressive disorder), recurrent episode, severe: (2) Post traumatic stress disorder (PTSD): (3) S/P ACL reconstruction: (4) Intellectual disability: Plan 09/02/22: Doubt the bed-seeking behavior represents medication side effects, so will avoid making changes in the medication plan. 09/01/22: Will avoid making medication changes in the absence of clear symptom targets but will monitor closely. 08/31/22: No change in medication indicated. She should probably have a HgbA1c soon. 08/30/22: Continue current medications and treatment plan 08/29/22: pt requests no change in medication as she says she thinks she is seeing some benefit 08/27/22: accepted to [facility], unable to be safely discharged to the community without [facility] level of support or would readily decompensate. 08/25/22: d/c Lamictal. Desires trial of d/c antacid to once daily to minimize number of pills. Abilify maintenna due 09/03/22. 08/22/22: holding Lamictal at 50 mg until "rash" resolves per patient request. 08/21/2022: titrate Lamictal 100 mg daily. 08/19/22: Add KLonopin 0.25mg daily prn for panic attacks. 08/18/22: Continue current medications and tx plan. 08/17/22: Continue current medications and tx plan. 08/16/22: Discontinue Klonopin as may be contributing to daytime fatigue. 08/15/22: Continue current medications and tx plan. 08/14/22: Continue current medications and tx plan. 08/13/22: Continue current medications and tx plan. 08/12/22: Continue current medications and tx plan. 08/11/22: Continue current medications and tx plan. Ongoing coordination with [facility] regarding potential services for co-morbid intellectual disability. 08/10/22: Taper Klonopin to 0.25mg qd given concerns of disinhibition. 08/09/22: Continue current medications and tx plan. 08/08/2022: Continue current medications and tx plan. 08/07/2022: titrate lamictal to 50mg qhs. 08/04/2022: Abilify maintenna today, awaiting addition input from CM on diversion 08/03/2022: Continue current medications and tx plan. Option for abilify MORELOS tomorrow if she is interested. 08/02/22: Ongoing insight-oriented approach. Continue current medications and tx plan. 08/01/22: Continue with current medications and tx plan. 07/31/22: Continue with current medications and tx plan. EKG tomorrow to reassess QTc. 07/30/22: Increase abilify to 20mg qd. 07/29/22: Continue with current medications and tx plan. 07/28/22: Increase abilify to 15mg tomorrow morning 07/27/22: Continue with current medications and tx plan. 07/26/22: titrate Abilify to 10 mg starting tomorrow 07/25/22: continue daily ekGs to titrate Abilify to 20 mg in intervals. Monitor sedation on Klonopin, gait is steady, will move 2nd dose to hs. CXR for TB clearance for anticipated state hospital referral. 07/24/22: risks/benefits/alternatives reviewed re: Klonopin trial given random breakthrough anxiety. Discussed resuming Abilify oral dosing so can adjust/monitor QTc. Daily EKG ordered. patient agreeable and will start Abilify 5 mg daily today and Klonopin 0.25 mg po BID. She is ambulating well without her brace. consult PT for final exercises. 07/23/22: d/c Buspar as may be having residual serotonergic sensitivity, daily EKG per hospitalist recommendation, repeat labs unremarkable, vitals stable. Zofran prn. Hold Abilify maintenna due to day given QTc. 07/22/22: [facility] on q15 min checks (behavioral with suicide precautions) for safety. The patient will participate in group, recreational, and milieu therapies and will be offered additional individual and family sessions as clinically appropriate. Restarted Buspar on medical floor, repeat EKG in am to determine appropriateness of Abilify maintenna that is due. Hold Zyprexa. She is aware that would not recommend resume Vistaril or Lexapro. Will offer Buspar 5 mg TID prn as well as frequently requests prn and want to avoid benzos. Restart lamictal as plan of outpatient provider and has never titrated. PT consult as still receiving outpatient PT. Explore possible state hospital referral given need for longer term hospitalization. Inventory Assets Strengths: accepting of services, cooperative with unit routines Needs: improve coping skills, ongoing CM involvement in placement options Suicide Risk Level Suicide Risk Level: Moderate (q15 min suicide checks) Risk Factors Assessment Male: No : Yes Do You Have Access To A Gun?: No Health Problems: Yes Mental Health Diagnoses: Yes Substance Use Disorders: No Previous Psychiatric Hospitalization: Yes Protective Factors Assessment Stable Relationships: Yes Interval History Identifying Information BAUTISTA ALLRED is a 21-year-old F who currently lives in [place], has a history of several inpatient stays on 3 S (most recently 07/24), and was admitted on 07/21/22 18:29 on a 201 voluntary commitment s/p medical admission for suicide attempt by OD. Chief Complaint "Go away". Review of Systems Sleep Information Total Hours of Sleep: 9 Meal Information Percent Meal Consumed - Breakfast: 100 Percent Meal Consumed - Lunch: 100 Percent Meal Consumed - Dinner: 100 Nutrition Comment: per paper documentation Subjective Subjective Patient was seen & assessed and interval progress reviewed with treatment team nursing and social work Physical Exam Psychiatric Participated very poorly with exam, pulling the covers over her head repeatedly Orientation: oriented to person and oriented to place; + not alert Apperance: appropriately dressed and appropriately groomed Eye Contact: + poor eye contact Motor Behavior: no abnormal motor movements Speech: + mute Affect: + blunted affect Mood: + anxious mood; no depressed mood, no irritable mood and no angry mood Thought Process: + concrete thought process Thought Content: reality based without delusions Suicidal Thoughts: denies suicidal thoughts, denies suicidal plan and denies suicidal intent Homicidal Thoughts: denies homicidal thoughts Hallucinations: no auditory hallucinations and no visual hallucinations Cognition: attention grossly intact and language grossly intact Estimated Intelligence: consistent with education level and + below average estimated intelligence Insight: + limited insight Judgment: + limited judgement Vital Signs (Past 24 Hours) Last Vital Signs Temp 37.2 C 09/01/22 20:00 Pulse 102 H 08/26/22 06:39 Resp 16 08/26/22 06:38 BP 113/83 08/26/22 06:39 Pulse Ox 97 08/25/22 06:00 O2 Del Method 08/25/22 06:00 Results & Data (U) Current Inpatient Medications Current Inpatient Medications: Current Inpatient Medications Acetaminophen (Acetaminophen 325 Mg Tab) 650 mg PO Q4H PRN PRN Reason: Headache or Minor Fever Stop: 09/18/22 12:59 Last Admin: 09/01/22 17:34 Dose: 650 mg Al Hydrox/Mg Hydrox/Simethicone (Aluminum/Magnesium Susp 30 Ml Udc) 30 ml PO Q4H PRN PRN Reason: GI Upset Stop: 09/18/22 12:59 Aripiprazole (Aripiprazole 400 Mg Pre-Filled Syringe) 400 mg IM TODAY@0900 [facility] Stop: 09/03/22 09:01 Bismuth Subsalicylate (Bismuth Subsalicylate Liqd 236 Ml) 15 ml PO PRN PRN PRN Reason: Loose Stool Stop: 09/18/22 12:59 Last Admin: 08/29/22 20:12 Dose: 15 ml Buspirone HCl (Buspirone 5 Mg Tab) 5 mg PO TID PRN PRN Reason: Anxiety/Agitation Stop: 09/18/22 12:59 Last Admin: 08/31/22 19:45 Dose: 5 mg Clonazepam (Clonazepam 0.25 Mg Tab) 0.25 mg PO DAILY PRN PRN Reason: panic attack Stop: 09/18/22 13:54 Last Admin: 08/19/22 21:54 Dose: 0.25 mg Magnesium Hydroxide (Magnesium Hydroxide Susp 30 Ml Udc) 30 ml PO DAILY PRN PRN Reason: Constipation Stop: 09/18/22 12:59 Multi-Ingredient Cream (Eucerin Cr 120 Gm Jar) 1 appln EXT DAILY PRN PRN Reason: dry skin over knee Stop: 09/18/22 12:59 Ondansetron HCl (Ondansetron 4 Mg Od Tab) 4 mg PO Q6H PRN PRN Reason: Nausea Stop: 09/18/22 12:59 Last Admin: 08/27/22 13:34 Dose: 4 mg Pantoprazole Sodium (Pantoprazole 40 Mg Tab) 40 mg PO QAM IFEOMA Stop: 09/25/22 08:59 Last Admin: 09/01/22 08:40 Dose: 40 mg Sodium Chloride (Sodium Chloride 0.65% Na Soln 45 Ml ([place])) 1 - 2 sprays NA PRN PRN PRN Reason: Nasal Dryness/Congestion Stop: 09/18/22 13:04 Mental Health & Subst Abuse Tx Therapist Name of Therapist: Hubert Martinez Engineering Drawings Checker Name of Engineering Drawings Checker: DANIE Watkins Post Discharge Appointments Primary Care Physician Name Of Family Doctor/PCP: Hubert Mcpherson Specialist Name of Specialist: [facility] - Dr. Avila Phone Number for Specialist: Date of Appointment with Specialist: 09/10/22 Time of Appointment with Specialist: 3:30pm Specialty Appointment Comment: [address]; [address], [place], [place]
[2022-09-02] MEDS: PANTOprazole 40 MG TAB PO SCH (08:18)
[2022-09-03] MEDS: PANTOprazole 40 MG TAB PO SCH (08:40)
--- NOTE | 2022-09-03 08:57 | Psychiatric Progress Note ---
Date of Service September 03, 2022 Impression / Recommendations Impression 21 yo female with a history of mood dysregulation, complex trauma hx, worsening depression on transition to living independently as an adult, limited coping skills tested by ACL repair. Diagnostically consistent with recurrent MDD in context of limited coping skills and social isolation and increasingly presents with likely cluster B traits/BPD given chronicity of her SI and very limited coping skills for emotional distress/self-harm urges. MNPR due to social skills, knee recovery, limited distress tolerance 09/03/22: Mood remains labile, would not interact in any prolonged manner with me but later laughing and engaging with activity group and brightening. Received abilify MORELOS and tolerating well so far. Will order repeat glucose and HbA1c labwork for tomorrow. (1) MDD (major depressive disorder), recurrent episode, severe: (2) Post traumatic stress disorder (PTSD): (3) S/P ACL reconstruction: (4) Intellectual disability: Plan 09/03/22: Continue current medications and treatment plan. HbA1c and fasting glucose tomorrow given ongoing abilify MORELOS use. 09/02/22: Doubt the bed-seeking behavior represents medication side effects, so will avoid making changes in the medication plan. 09/01/22: Will avoid making medication changes in the absence of clear symptom targets but will monitor closely. 08/31/22: No change in medication indicated. She should probably have a HgbA1c soon. 08/30/22: Continue current medications and treatment plan 08/29/22: pt requests no change in medication as she says she thinks she is seeing some benefit 08/27/22: accepted to [facility], unable to be safely discharged to the community without [facility] level of support or would readily decompensate. 08/25/22: d/c Lamictal. Desires trial of d/c antacid to once daily to minimize number of pills. Abilify maintenna due 09/03/22. 08/22/22: holding Lamictal at 50 mg until "rash" resolves per patient request. 08/21/2022: titrate Lamictal 100 mg daily. 08/19/22: Add KLonopin 0.25mg daily prn for panic attacks. 08/18/22: Continue current medications and tx plan. 08/17/22: Continue current medications and tx plan. 08/16/22: Discontinue Klonopin as may be contributing to daytime fatigue. 08/15/22: Continue current medications and tx plan. 08/14/22: Continue current medications and tx plan. 08/13/22: Continue current medications and tx plan. 08/12/22: Continue current medications and tx plan. 08/11/22: Continue current medications and tx plan. Ongoing coordination with [facility] regarding potential services for co-morbid intellectual disability. 08/10/22: Taper Klonopin to 0.25mg qd given concerns of disinhibition. 08/09/22: Continue current medications and tx plan. 08/08/2022: Continue current medications and tx plan. 08/07/2022: titrate lamictal to 50mg qhs. 08/04/2022: Abilify maintenna today, awaiting addition input from CM on diversion 08/03/2022: Continue current medications and tx plan. Option for abilify MORELOS tomorrow if she is interested. 08/02/22: Ongoing insight-oriented approach. Continue current medications and tx plan. 08/01/22: Continue with current medications and tx plan. 07/31/22: Continue with current medications and tx plan. EKG tomorrow to reassess QTc. 07/30/22: Increase abilify to 20mg qd. 07/29/22: Continue with current medications and tx plan. 07/28/22: Increase abilify to 15mg tomorrow morning 07/27/22: Continue with current medications and tx plan. 07/26/22: titrate Abilify to 10 mg starting tomorrow 07/25/22: continue daily ekGs to titrate Abilify to 20 mg in intervals. Monitor sedation on Klonopin, gait is steady, will move 2nd dose to hs. CXR for TB clearance for anticipated critical access hospital hospital referral. 07/24/22: risks/benefits/alternatives reviewed re: Klonopin trial given random breakthrough anxiety. Discussed resuming Abilify oral dosing so can adjust/monitor QTc. Daily EKG ordered. patient agreeable and will start Abilify 5 mg daily today and Klonopin 0.25 mg po BID. She is ambulating well without her brace. consult PT for final exercises. 07/23/22: d/c Buspar as may be having residual serotonergic sensitivity, daily EKG per hospitalist recommendation, repeat labs unremarkable, vitals stable. Zofran prn. Hold Abilify maintenna due to day given QTc. 07/22/22: [facility]) on q15 min checks (behavioral with suicide precautions) for safety. The patient will participate in group, recreational, and milieu therapies and will be offered additional individual and family sessions as clinically appropriate. Restarted Buspar on medical floor, repeat EKG in am to determine appropriateness of Abilify maintenna that is due. Hold Zyprexa. She is aware that would not recommend resume Vistaril or Lexapro. Will offer Buspar 5 mg TID prn as well as frequently requests prn and want to avoid benzos. Restart lamictal as plan of outpatient provider and has never titrated. PT consult as still receiving outpatient PT. Explore possible state hospital referral given need for longer term hospitalization. Inventory Assets Strengths: accepting of services, cooperative with unit routines Needs: improve coping skills, ongoing CM involvement in placement options Suicide Risk Level Suicide Risk Level: Moderate (q15 min suicide checks) (periods of increased depression and SI but feels safe and agrees to let nursing know if she feels unsafe or unable to remain safe without additional support) Risk Factors Assessment Male: No : Yes Do You Have Access To A Gun?: No Health Problems: Yes Mental Health Diagnoses: Yes Substance Use Disorders: No Previous Psychiatric Hospitalization: Yes Protective Factors Assessment Stable Relationships: Yes Interval History Identifying Information BAUTISTA ALLRED is a 21-year-old F who currently lives in [place], has a history of several inpatient stays on 3 S (most recently 07/24), and was admitted on 07/21/22 18:29 on a 201 voluntary commitment s/p medical admission for suicide attempt by OD. Chief Complaint "I don't want to talk". Review of Systems Sleep Information Total Hours of Sleep: 9 Meal Information Percent Meal Consumed - Breakfast: 25 Percent Meal Consumed - Lunch: 100 Percent Meal Consumed - Dinner: 100 Nutrition Comment: per paper documentation Subjective Subjective Patient was seen & assessed and interval progress reviewed with treatment team nursing and social work. Due for next Abilify Maintena dose today and received this and she denies any reaction or side effects from this. Nervous but also excited about [facility] but not willing to discuss this in any further detail with me. Declines to speak with me in her room or meet elsewhere for more prolonged discussion, only agreeable to answering a few questions. Is interested in trying to go outside today. Declined to review treatment team information, more isolative and flat. Physical Exam Psychiatric Orientation: alert and oriented x 3 Eye Contact: + fair eye contact Motor Behavior: no abnormal motor movements Speech: normal rate/rhythm/volume of speech Affect: + flat affect Mood: + depressed mood and + irritable mood Thought Process: + concrete thought process Thought Content: reality based without delusions Suicidal Thoughts: denies suicidal thoughts (intermittent SI ), denies suicidal plan and denies suicidal intent Homicidal Thoughts: denies homicidal thoughts Hallucinations: no auditory hallucinations and no visual hallucinations Cognition: attention grossly intact and language grossly intact Estimated Intelligence: + below average estimated intelligence Insight: + limited insight Judgment: + limited judgement Vital Signs (Past 24 Hours) Last Vital Signs Temp 36.9 C 09/02/22 19:51 Pulse 102 H 08/26/22 06:39 Resp 16 08/26/22 06:38 BP 113/83 08/26/22 06:39 Pulse Ox 97 08/25/22 06:00 O2 Del Method 08/25/22 06:00 [facility] & Data [facility] Current Inpatient Medications Current Inpatient Medications: Current Inpatient Medications Acetaminophen (Acetaminophen 325 Mg Tab) 650 mg PO Q4H PRN PRN Reason: Headache or Minor Fever Stop: 09/18/22 12:59 Last Admin: 09/01/22 17:34 Dose: 650 mg Al Hydrox/Mg Hydrox/Simethicone (Aluminum/Magnesium Susp 30 Ml Udc) 30 ml PO Q4H PRN PRN Reason: GI Upset Stop: 09/18/22 12:59 Aripiprazole (Aripiprazole 400 Mg Pre-Filled Syringe) 400 mg IM TODAY@0900 IFEOMA Stop: 09/03/22 09:01 Bismuth Subsalicylate (Bismuth Subsalicylate Liqd 236 Ml) 15 ml PO PRN PRN PRN Reason: Loose Stool Stop: 09/18/22 12:59 Last Admin: 08/29/22 20:12 Dose: 15 ml Buspirone HCl (Buspirone 5 Mg Tab) 5 mg PO TID PRN PRN Reason: Anxiety/Agitation Stop: 09/18/22 12:59 Last Admin: 08/31/22 19:45 Dose: 5 mg Clonazepam (Clonazepam 0.25 Mg Tab) 0.25 mg PO DAILY PRN PRN Reason: panic attack Stop: 09/18/22 13:54 Last Admin: 08/19/22 21:54 Dose: 0.25 mg Magnesium Hydroxide (Magnesium Hydroxide Susp 30 Ml Udc) 30 ml PO DAILY PRN PRN Reason: Constipation Stop: 09/18/22 12:59 Multi-Ingredient Cream (Eucerin Cr 120 Gm Jar) 1 appln EXT DAILY PRN PRN Reason: dry skin over knee Stop: 09/18/22 12:59 Ondansetron HCl (Ondansetron 4 Mg Od Tab) 4 mg PO Q6H PRN PRN Reason: Nausea Stop: 09/18/22 12:59 Last Admin: 08/27/22 13:34 Dose: 4 mg Pantoprazole Sodium (Pantoprazole 40 Mg Tab) 40 mg PO QAM IFEOMA Stop: 09/25/22 08:59 Last Admin: 09/03/22 08:40 Dose: 40 mg Sodium Chloride (Sodium Chloride 0.65% Na Soln 45 Ml ([place])) 1 - 2 sprays NA PRN PRN PRN Reason: Nasal Dryness/Congestion Stop: 09/18/22 13:04 Mental Health & Subst Abuse Tx Therapist Name of Therapist: Hubert Martinez Director Of Corporate Sales Name of Director Of Corporate Sales: DANIE Watkins Post Discharge Appointments Primary Care Physician Name Of Family Doctor/PCP: Hubert Mcpherson Specialist Name of Specialist: [facility] - Dr. Avila Phone Number for Specialist: Date of Appointment with Specialist: 09/10/22 Time of Appointment with Specialist: 3:30pm Specialty Appointment Comment: [address]; [address], [place], [place]
[2022-09-03] MEDS ORDERED: ARIPiprazole 400 MG PRE-FILLED SYRINGE IM SCH (09:00)
[2022-09-03] MEDS: busPIRone 5 MG TAB PO PRN (19:29)
[2022-09-04] MEDS: PANTOprazole 40 MG TAB PO SCH (07:51)
[2022-09-04 09:28] LABS: Estimated Average Glucose 108 mg/dl; Hemoglobin A1C 5.4 % (4.5-5.6)
--- NOTE | 2022-09-04 16:47 | Psychiatric Progress Note ---
Date of Service September 04, 2022 Impression / Recommendations Impression 21 yo female with a history of mood dysregulation, complex trauma hx, worsening depression on transition to living independently as an adult, limited coping skills tested by ACL repair. Diagnostically consistent with recurrent MDD in context of limited coping skills and social isolation and increasingly presents with likely cluster B traits/BPD given chronicity of her SI and very limited coping skills for emotional distress/self-harm urges. MNPR due to social skills, knee recovery, limited distress tolerance 09/04/22: Mood remains labile, more tearful with SI and depressed today. Wants to start fluoxetine for depression which she's taken before and found helpful. Discussed risks, benefits and alternatives. Patient would like to start and consented to fluoxetine for depression. Reviewed side effects including but not limited to: GI, LOUIS, sexual side effects, and counseled on black box warning of potential for emergence of or increased SI and need to let staff know should this occur or should they feel unsafe. Also discussed importance of seeking emergency care following discharge if this side effect occurs in the future. Reviewed HbA1c and fasting glucose results which were normal. (1) MDD (major depressive disorder), recurrent episode, severe: (2) Post traumatic stress disorder (PTSD): (3) S/P ACL reconstruction: (4) Intellectual disability: Plan 09/04/22: Start fluoxetine 20mg daily with dinner (timing per her preference) for depression. 09/03/22: Continue current medications and treatment plan. HbA1c and fasting glucose tomorrow given ongoing abilify MORELOS use. 09/02/22: Doubt the bed-seeking behavior represents medication side effects, so will avoid making changes in the medication plan. 09/01/22: Will avoid making medication changes in the absence of clear symptom targets but will monitor closely. 08/31/22: No change in medication indicated. She should probably have a HgbA1c soon. 08/30/22: Continue current medications and treatment plan 08/29/22: pt requests no change in medication as she says she thinks she is seeing some benefit 08/27/22: accepted to [facility], unable to be safely discharged to the community without [facility] level of support or would readily decompensate. 08/25/22: d/c Lamictal. Desires trial of d/c antacid to once daily to minimize number of pills. Abilify maintenna due 09/03/22. 08/22/22: holding Lamictal at 50 mg until "rash" resolves per patient request. 08/21/2022: titrate Lamictal 100 mg daily. 08/19/22: Add KLonopin 0.25mg daily prn for panic attacks. 08/18/22: Continue current medications and tx plan. 08/17/22: Continue current medications and tx plan. 08/16/22: Discontinue Klonopin as may be contributing to daytime fatigue. 08/15/22: Continue current medications and tx plan. 08/14/22: Continue current medications and tx plan. 08/13/22: Continue current medications and tx plan. 08/12/22: Continue current medications and tx plan. 08/11/22: Continue current medications and tx plan. Ongoing coordination with [facility] regarding potential services for co-morbid intellectual disability. 08/10/22: Taper Klonopin to 0.25mg qd given concerns of disinhibition. 08/09/22: Continue current medications and tx plan. 08/08/2022: Continue current medications and tx plan. 08/07/2022: titrate lamictal to 50mg qhs. 08/04/2022: [facility] today, awaiting addition input from CM on diversion 08/03/2022: Continue current medications and tx plan. Option for abilify MORELOS tomorrow if she is interested. 08/02/22: Ongoing insight-oriented approach. Continue current medications and tx plan. 08/01/22: Continue with current medications and tx plan. 07/31/22: Continue with current medications and tx plan. EKG tomorrow to reassess QTc. 07/30/22: Increase abilify to 20mg qd. 07/29/22: Continue with current medications and tx plan. 07/28/22: Increase abilify to 15mg tomorrow morning 07/27/22: Continue with current medications and tx plan. 07/26/22: titrate Abilify to 10 mg starting tomorrow 07/25/22: continue daily ekGs to titrate Abilify to 20 mg in intervals. Monitor sedation on Klonopin, gait is steady, will move 2nd dose to hs. CXR for TB clearance for anticipated [facility] referral. 07/24/22: risks/benefits/alternatives reviewed re: Klonopin trial given random breakthrough anxiety. Discussed resuming Abilify oral dosing so can adjust/monitor QTc. Daily EKG ordered. patient agreeable and will start Abilify 5 mg daily today and Klonopin 0.25 mg po BID. She is ambulating well without her brace. consult PT for final exercises. 07/23/22: d/c Buspar as may be having residual serotonergic sensitivity, daily EKG per hospitalist recommendation, repeat labs unremarkable, vitals stable. Zofran prn. Hold Abilify maintenna due to day given QTc. 07/22/22: [facility] on q15 min checks (behavioral with suicide precautions) for safety. The patient will participate in group, recreational, and milieu therapies and will be offered additional individual and family sessions as clinically appropriate. Restarted Buspar on medical floor, repeat EKG in am to determine appropriateness of Abilify maintenna that is due. Hold Zyprexa. She is aware that would not recommend resume Vistaril or Lexapro. Will offer Buspar 5 mg TID prn as well as frequently requests prn and want to avoid benzos. Restart lamictal as plan of outpatient provider and has never titrated. PT consult as still receiving outpatient PT. Explore possible state hospital referral given need for longer term hospitalization. Inventory Assets Strengths: accepting of services, cooperative with unit routines Needs: improve coping skills, ongoing CM involvement in placement options Suicide Risk Level Suicide Risk Level: Moderate (q15 min suicide checks) (periods of increased depression and SI but feels safe and agrees to let nursing know if she feels unsafe or unable to remain safe without additional support) Risk Factors Assessment Male: No : Yes Do You Have Access To A Gun?: No Health Problems: Yes Mental Health Diagnoses: Yes Substance Use Disorders: No Previous Psychiatric Hospitalization: Yes Protective Factors Assessment Stable Relationships: Yes Interval History Identifying Information BAUTISTA ALLRED is a 21-year-old F who currently lives in [place], has a history of several inpatient stays on 3 S (most recently 07/24), and was admitted on 07/21/22 18:29 on a 201 voluntary commitment s/p medical admission for suicide attempt by OD. Chief Complaint "I don't feel like the old Hope". Review of Systems Sleep Information Total Hours of Sleep: 7.5 Meal Information Percent Meal Consumed - Breakfast: 100 Percent Meal Consumed - Lunch: 50 Percent Meal Consumed - Dinner: 100 Nutrition Comment: per paper documentation Subjective Subjective Patient was seen & assessed and interval progress reviewed with treatment team nursing and social work. Hope is tearful expressing worsened depression today and "not feeling like me". She struggles to articulate what if any symptoms she is having but ultimately states "I'm afarid I'm going to mess up again" and attempt suicide. Confirmed that currently she feels safe though continues to have intermittent SI but no plans or intent. She wants to start fluoxetine again for depression which she tried in the past. Reviewed non-pharmacological strategies as well and reflected on upcoming big transition but she doesn't feel this is related to her mood changes. Physical Exam Psychiatric Orientation: alert and oriented x 3 Eye Contact: + fair eye contact Motor Behavior: no abnormal motor movements Speech: normal rate/rhythm/volume of speech Affect: + tearful affect Mood: + depressed mood Thought Process: + concrete thought process Thought Content: reality based without delusions Suicidal Thoughts: denies suicidal plan and denies suicidal intent; + reports suicidal thoughts (intermittent SI ) Homicidal Thoughts: denies homicidal thoughts Hallucinations: no auditory hallucinations and no visual hallucinations Cognition: attention grossly intact and language grossly intact Estimated Intelligence: + below average estimated intelligence Insight: + limited insight Judgment: + limited judgement Vital Signs (Past 24 Hours) Last Vital Signs Temp 36.9 C 09/03/22 20:00 Pulse 102 H 08/26/22 06:39 Resp 16 08/26/22 06:38 BP 113/83 08/26/22 06:39 Pulse Ox 97 08/25/22 06:00 O2 Del Method 08/25/22 06:00 Results & Data ([facility]) Laboratory Results Laboratory Results - last 24 hr 09/04/22 09/04/22 07:01 07:01 Fasting Glucose 88 Estimat Average Glucose 108 Hemoglobin A1c 5.4 Current Inpatient Medications Current Inpatient Medications: Current Inpatient Medications Acetaminophen (Acetaminophen 325 Mg Tab) 650 mg PO Q4H PRN PRN Reason: Headache or Minor Fever Stop: 09/18/22 12:59 Last Admin: 09/01/22 17:34 Dose: 650 mg Al Hydrox/Mg Hydrox/Simethicone (Aluminum/Magnesium Susp 30 Ml Udc) 30 ml PO Q4H PRN PRN Reason: GI Upset Stop: 09/18/22 12:59 Bismuth Subsalicylate (Bismuth Subsalicylate Liqd 236 Ml) 15 ml PO PRN PRN PRN Reason: Loose Stool Stop: 09/18/22 12:59 Last Admin: 08/29/22 20:12 Dose: 15 ml Buspirone HCl (Buspirone 5 Mg Tab) 5 mg PO TID PRN PRN Reason: Anxiety/Agitation Stop: 09/18/22 12:59 Last Admin: 09/03/22 19:29 Dose: 5 mg Clonazepam (Clonazepam 0.25 Mg Tab) 0.25 mg PO DAILY PRN PRN Reason: panic attack Stop: 09/18/22 13:54 Last Admin: 08/19/22 21:54 Dose: 0.25 mg Fluoxetine HCl (Fluoxetine Hcl 10 Mg Cap) 10 mg PO DAILYBD IFEOMA Stop: 10/04/22 17:14 Magnesium Hydroxide (Magnesium Hydroxide Susp 30 Ml Udc) 30 ml PO DAILY PRN PRN Reason: Constipation Stop: 09/18/22 12:59 Multi-Ingredient Cream (Eucerin Cr 120 Gm Jar) 1 appln EXT DAILY PRN PRN Reason: dry skin over knee Stop: 09/18/22 12:59 Ondansetron HCl (Ondansetron 4 Mg Od Tab) 4 mg PO Q6H PRN PRN Reason: Nausea Stop: 09/18/22 12:59 Last Admin: 08/27/22 13:34 Dose: 4 mg Pantoprazole Sodium (Pantoprazole 40 Mg Tab) 40 mg PO QAM IFEOMA Stop: 09/25/22 08:59 Last Admin: 09/04/22 07:51 Dose: 40 mg Sodium Chloride (Sodium Chloride 0.65% Na Soln 45 Ml ([place])) 1 - 2 sprays NA PRN PRN PRN Reason: Nasal Dryness/Congestion Stop: 09/18/22 13:04 Mental Health & Subst Abuse Tx Therapist Name of Therapist: Hubert Martinez Student Finance Advisor Name of Student Finance Advisor: DANIE Watkins Post Discharge Appointments Primary Care Physician Name Of Family Doctor/PCP: [place]- Dr. Shippert Specialist Name of Specialist: [facility] - Dr. Avila Phone Number for Specialist: Date of Appointment with Specialist: 09/10/22 Time of Appointment with Specialist: 3:30pm Specialty Appointment Comment: [address]; [address], [place], [place]
[2022-09-04] MEDS: FLUoxetine HCL 10 MG CAP PO SCH (17:05)
[2022-09-05] MEDS: PANTOprazole 40 MG TAB PO SCH (08:35)
[2022-09-05] MEDS ORDERED: FLUoxetine HCL 10 MG CAP PO SCH (09:00)
--- NOTE | 2022-09-05 12:42 | Psychiatric Progress Note ---
Date of Service September 05, 2022 Impression / Recommendations Impression 21 yo female with a history of mood dysregulation, complex trauma hx, worsening depression on transition to living independently as an adult, limited coping skills tested by ACL repair. Diagnostically consistent with recurrent MDD in context of limited coping skills and social isolation and increasingly presents with likely cluster B traits/BPD given chronicity of her SI and very limited coping skills for emotional distress/self-harm urges. MNPR due to social skills, knee recovery, limited distress tolerance 09/05/22: Mood remains labile, but very bright today with laughing and happy mood. Denies SI. Tolerating fluoxetine without any side effects. Future oriented about [facility]. (1) MDD (major depressive disorder), recurrent episode, severe: (2) Post traumatic stress disorder (PTSD): (3) S/P ACL reconstruction: (4) Intellectual disability: Plan 09/05/22: Continue current medications and tx plan. Plan for [facility] once bed is available. 09/04/22: Start fluoxetine 20mg daily with dinner (timing per her preference) for depression. 09/03/22: Continue current medications and treatment plan. HbA1c and fasting glucose tomorrow given ongoing abilify MORELOS use. 09/02/22: Doubt the bed-seeking behavior represents medication side effects, so will avoid making changes in the medication plan. 09/01/22: Will avoid making medication changes in the absence of clear symptom targets but will monitor closely. 08/31/22: No change in medication indicated. She should probably have a HgbA1c soon. 08/30/22: Continue current medications and treatment plan 08/29/22: pt requests no change in medication as she says she thinks she is seeing some benefit 08/27/22: accepted to [facility], unable to be safely discharged to the community without [facility] level of support or would readily decompensate. 08/25/22: d/c Lamictal. Desires trial of d/c antacid to once daily to minimize number of pills. Abilify maintenna due 09/03/22. 08/22/22: holding Lamictal at 50 mg until "rash" resolves per patient request. 08/21/2022: titrate Lamictal 100 mg daily. 08/19/22: Add KLonopin 0.25mg daily prn for panic attacks. 08/18/22: Continue current medications and tx plan. 08/17/22: Continue current medications and tx plan. 08/16/22: Discontinue Klonopin as may be contributing to daytime fatigue. 08/15/22: Continue current medications and tx plan. 08/14/22: Continue current medications and tx plan. 08/13/22: Continue current medications and tx plan. 08/12/22: Continue current medications and tx plan. 08/11/22: Continue current medications and tx plan. Ongoing coordination with [facility] regarding potential services for co-morbid intellectual disability. 08/10/22: Taper Klonopin to 0.25mg qd given concerns of disinhibition. 08/09/22: Continue current medications and tx plan. 08/08/2022: Continue current medications and tx plan. 08/07/2022: titrate lamictal to 50mg qhs. 08/04/2022: Abilify maintenna today, awaiting addition input from CM on diversion 08/03/2022: Continue current medications and tx plan. Option for abilify MORELOS tomorrow if she is interested. 08/02/22: Ongoing insight-oriented approach. Continue current medications and tx plan. 08/01/22: Continue with current medications and tx plan. 07/31/22: Continue with current medications and tx plan. EKG tomorrow to reassess QTc. 07/30/22: Increase abilify to 20mg qd. 07/29/22: Continue with current medications and tx plan. 07/28/22: Increase abilify to 15mg tomorrow morning 07/27/22: Continue with current medications and tx plan. 07/26/22: titrate Abilify to 10 mg starting tomorrow 07/25/22: continue daily ekGs to titrate Abilify to 20 mg in intervals. Monitor sedation on Klonopin, gait is steady, will move 2nd dose to hs. CXR for TB clearance for anticipated critical access hospital hospital referral. 07/24/22: risks/benefits/alternatives reviewed re: Klonopin trial given random breakthrough anxiety. Discussed resuming Abilify oral dosing so can adjust/monitor QTc. Daily EKG ordered. patient agreeable and will start Abilify 5 mg daily today and Klonopin 0.25 mg po BID. She is ambulating well without her brace. consult PT for final exercises. 07/23/22: d/c Buspar as may be having residual serotonergic sensitivity, daily EKG per hospitalist recommendation, repeat labs unremarkable, vitals stable. Zofran prn. Hold Abilify maintenna due to day given QTc. 07/22/22: The patient was admitted to the [facility] ([facility] mental health unit) on q15 min checks (behavioral with suicide precautions) for safety. The patient will participate in group, recreational, and milieu therapies and will be offered additional individual and family sessions as clinically appropriate. Restarted Buspar on medical floor, repeat EKG in am to determine appropriateness of Abilify maintenna that is due. Hold Zyprexa. She is aware that would not recommend resume Vistaril or Lexapro. Will offer Buspar 5 mg TID prn as well as frequently requests prn and want to avoid benzos. Restart lamictal as plan of outpatient provider and has never titrated. PT consult as still receiving outpatient PT. Explore possible critical access hospital hospital referral given need for longer term hospitalization. Inventory Assets Strengths: accepting of services, cooperative with unit routines Needs: improve coping skills, ongoing CM involvement in placement options Suicide Risk Level Suicide Risk Level: Moderate (q15 min suicide checks) (periods of increased depression and SI but feels safe and agrees to let nursing know if she feels unsafe or unable to remain safe without additional support) Risk Factors Assessment Male: No : Yes Do You Have Access To A Gun?: No Health Problems: Yes Mental Health Diagnoses: Yes Substance Use Disorders: No Previous Psychiatric Hospitalization: Yes Protective Factors Assessment Stable Relationships: Yes Interval History Identifying Information BAUTISTA ALLRED is a 21-year-old F who currently lives in [place], has a history of several inpatient stays on 3 S (most recently 07/24), and was admitted on 07/21/22 18:29 on a 201 voluntary commitment s/p medical admission for suicide attempt by OD. Chief Complaint "I'm good". Review of Systems Sleep Information Total Hours of Sleep: 7.25 Meal Information Percent Meal Consumed - Breakfast: 100 Percent Meal Consumed - Lunch: 50 Percent Meal Consumed - Dinner: 100 Nutrition Comment: per paper documentation Subjective Subjective Patient was seen & assessed and interval progress reviewed with treatment team nursing and social work. Much brighter affect today laughing and engaging with groups and all providers. She's unsure what caused significant shift in mood from yesterday to today. Bringing her stuffed animal, Chip, around unit with her and enjoying singing along with music. Denies SI. Feels her mood is good and denies any side effects from fluoxetine. Physical Exam Psychiatric Orientation: alert and oriented x 3 Eye Contact: good eye contact Motor Behavior: no abnormal motor movements Speech: normal rate/rhythm/volume of speech Affect: euthymic affect Mood: no depressed mood and no anxious mood Thought Process: + concrete thought process Thought Content: reality based without delusions Suicidal Thoughts: denies suicidal thoughts (intermittent SI ), denies suicidal plan and denies suicidal intent Homicidal Thoughts: denies homicidal thoughts Hallucinations: no auditory hallucinations and no visual hallucinations Cognition: attention grossly intact and language grossly intact Estimated Intelligence: + below average estimated intelligence Insight: + limited insight Judgment: + limited judgement Vital Signs (Past 24 Hours) Last Vital Signs Temp 36.9 C 09/03/22 20:00 Pulse 102 H 08/26/22 06:39 Resp 16 08/26/22 06:38 BP 113/83 08/26/22 06:39 Pulse Ox 97 08/25/22 06:00 O2 Del Method 08/25/22 06:00 Results & Data ([facility]) Current Inpatient Medications Current Inpatient Medications: Current Inpatient Medications Acetaminophen (Acetaminophen 325 Mg Tab) 650 mg PO Q4H PRN PRN Reason: Headache or Minor Fever Stop: 09/18/22 12:59 Last Admin: 09/01/22 17:34 Dose: 650 mg Al Hydrox/Mg Hydrox/Simethicone (Aluminum/Magnesium Susp 30 Ml Udc) 30 ml PO Q4H PRN PRN Reason: GI Upset Stop: 09/18/22 12:59 Bismuth Subsalicylate (Bismuth Subsalicylate Liqd 236 Ml) 15 ml PO PRN PRN PRN Reason: Loose Stool Stop: 09/18/22 12:59 Last Admin: 08/29/22 20:12 Dose: 15 ml Buspirone HCl (Buspirone 5 Mg Tab) 5 mg PO TID PRN PRN Reason: Anxiety/Agitation Stop: 09/18/22 12:59 Last Admin: 09/03/22 19:29 Dose: 5 mg Clonazepam (Clonazepam 0.25 Mg Tab) 0.25 mg PO DAILY PRN PRN Reason: panic attack Stop: 09/18/22 13:54 Last Admin: 08/19/22 21:54 Dose: 0.25 mg Fluoxetine HCl (Fluoxetine Hcl 10 Mg Cap) 10 mg PO DAILYBD IFEOMA Stop: 10/04/22 17:14 Last Admin: 09/04/22 17:05 Dose: 10 mg Magnesium Hydroxide (Magnesium Hydroxide Susp 30 Ml Udc) 30 ml PO DAILY PRN PRN Reason: Constipation Stop: 09/18/22 12:59 Multi-Ingredient Cream (Eucerin Cr 120 Gm Jar) 1 appln EXT DAILY PRN PRN Reason: dry skin over knee Stop: 09/18/22 12:59 Ondansetron HCl (Ondansetron 4 Mg Od Tab) 4 mg PO Q6H PRN PRN Reason: Nausea Stop: 09/18/22 12:59 Last Admin: 08/27/22 13:34 Dose: 4 mg Pantoprazole Sodium (Pantoprazole 40 Mg Tab) 40 mg PO QAM IFEOMA Stop: 09/25/22 08:59 Last Admin: 09/05/22 08:35 Dose: 40 mg Sodium Chloride (Sodium Chloride 0.65% Na Soln 45 Ml ([place])) 1 - 2 sprays NA PRN PRN PRN Reason: Nasal Dryness/Congestion Stop: 09/18/22 13:04 Mental Health & Subst Abuse Tx Therapist Name of Therapist: Hubert Martinez Conveyor Attendant Name of Conveyor Attendant: DANIE Watkins Post Discharge Appointments Primary Care Physician Name Of Family Doctor/PCP: Hubert Mcpherson Specialist Name of Specialist: [facility] - Dr. Avila Phone Number for Specialist: Date of Appointment with Specialist: 09/10/22 Time of Appointment with Specialist: 3:30pm Specialty Appointment Comment: [address]; [address], [place], [place]
[2022-09-05] MEDS: FLUoxetine HCL 10 MG CAP PO SCH (17:51)
[2022-09-05] MEDS: ACETAMINOPHEN 325 MG TAB PO PRN (17:51)
[2022-09-05] MEDS: busPIRone 5 MG TAB PO PRN (19:30)
--- NOTE | 2022-09-06 08:56 | Psychiatric Progress Note ---
Date of Service September 06, 2022 Impression / Recommendations Impression 21 yo female with a history of mood dysregulation, complex trauma hx, worsening depression on transition to living independently as an adult, limited coping skills tested by ACL repair. Diagnostically consistent with recurrent MDD in context of limited coping skills and social isolation and increasingly presents with likely cluster B traits/BPD given chronicity of her SI and very limited coping skills for emotional distress/self-harm urges. MNPR due to social skills, knee recovery, limited distress tolerance 09/06/22: Mood remains labile, more anxious today due to PCR test but using distraction skills well. Denies SI. Tolerating fluoxetine without any side effects. PCR test done for [facility] admission requirements and result is negative. (1) MDD (major depressive disorder), recurrent episode, severe: (2) Post traumatic stress disorder (PTSD): (3) S/P ACL reconstruction: (4) Intellectual disability: Plan 09/06/22: Negative PCR result. Plan for [facility] once bed available, remains unable to be safely discharged to the community 09/05/22: Continue current medications and tx plan. Plan for [facility] once bed is available. 09/04/22: Start fluoxetine 20mg daily with dinner (timing per her preference) for depression. 09/03/22: Continue current medications and treatment plan. HbA1c and fasting glucose tomorrow given ongoing abilify MORELOS use. 09/02/22: Doubt the bed-seeking behavior represents medication side effects, so will avoid making changes in the medication plan. 09/01/22: Will avoid making medication changes in the absence of clear symptom targets but will monitor closely. 08/31/22: No change in medication indicated. She should probably have a HgbA1c soon. 08/30/22: Continue current medications and treatment plan 08/29/22: pt requests no change in medication as she says she thinks she is seeing some benefit 08/27/22: accepted to [facility], unable to be safely discharged to the community without [facility] level of support or would readily decompensate. 08/25/22: d/c Lamictal. Desires trial of d/c antacid to once daily to minimize number of pills. Abilify maintenna due 09/03/22. 08/22/22: holding Lamictal at 50 mg until "rash" resolves per patient request. 08/21/2022: titrate Lamictal 100 mg daily. 08/19/22: Add KLonopin 0.25mg daily prn for panic attacks. 08/18/22: Continue current medications and tx plan. 08/17/22: Continue current medications and tx plan. 08/16/22: Discontinue Klonopin as may be contributing to daytime fatigue. 08/15/22: Continue current medications and tx plan. 08/14/22: Continue current medications and tx plan. 08/13/22: Continue current medications and tx plan. 08/12/22: Continue current medications and tx plan. 08/11/22: Continue current medications and tx plan. Ongoing coordination with [facility] regarding potential services for co-morbid intellectual disability. 08/10/22: Taper Klonopin to 0.25mg qd given concerns of disinhibition. 08/09/22: Continue current medications and tx plan. 08/08/2022: Continue current medications and tx plan. 08/07/2022: titrate lamictal to 50mg qhs. 08/04/2022: Abilify ranjit today, awaiting addition input from CM on diversion 08/03/2022: Continue current medications and tx plan. Option for abilify MORELOS tomorrow if she is interested. 08/02/22: Ongoing insight-oriented approach. Continue current medications and tx plan. 08/01/22: Continue with current medications and tx plan. 07/31/22: Continue with current medications and tx plan. EKG tomorrow to reassess QTc. 07/30/22: Increase abilify to 20mg qd. 07/29/22: Continue with current medications and tx plan. 07/28/22: Increase abilify to 15mg tomorrow morning 07/27/22: Continue with current medications and tx plan. 07/26/22: titrate Abilify to 10 mg starting tomorrow 07/25/22: continue daily ekGs to titrate Abilify to 20 mg in intervals. Monitor sedation on Klonopin, gait is steady, will move 2nd dose to hs. CXR for TB clearance for anticipated [facility] hospital referral. 07/24/22: risks/benefits/alternatives reviewed re: Klonopin trial given random breakthrough anxiety. Discussed resuming Abilify oral dosing so can adjust/monitor QTc. Daily EKG ordered. patient agreeable and will start Abilify 5 mg daily today and Klonopin 0.25 mg po BID. She is ambulating well without her brace. consult PT for final exercises. 07/23/22: d/c Buspar as may be having residual serotonergic sensitivity, daily EKG per hospitalist recommendation, repeat labs unremarkable, vitals stable. Zofran prn. Hold Abilify maintenna due to day given QTc. 07/22/22: The patient was admitted to the [facility] ([facility] mental health unit) on q15 min checks (behavioral with suicide precautions) for safety. The patient will participate in group, recreational, and milieu therapies and will be offered additional individual and family sessions as clinically appropriate. Restarted Buspar on medical floor, repeat EKG in am to determine appropriateness of Abilify maintenna that is due. Hold Zyprexa. She is aware that would not recommend resume Vistaril or Lexapro. Will offer Buspar 5 mg TID prn as well as frequently requests prn and want to avoid benzos. Restart lamictal as plan of outpatient provider and has never titrated. PT consult as still receiving outpatient PT. Explore possible state hospital referral given need for longer term hospitalization. Inventory Assets Strengths: accepting of services, cooperative with unit routines Needs: improve coping skills, ongoing CM involvement in placement options Suicide Risk Level Suicide Risk Level: Moderate (q15 min suicide checks) (periods of mood lability with episodes of increased depression and SI but feels safe and agrees to let nursing know if she feels unsafe or unable to remain safe without additional support) Risk Factors Assessment Male: No : Yes Do You Have Access To A Gun?: No Health Problems: Yes Mental Health Diagnoses: Yes Substance Use Disorders: No Previous Psychiatric Hospitalization: Yes Protective Factors Assessment Stable Relationships: Yes Interval History Identifying Information BAUTISTA ALLRED is a 21-year-old F who currently lives in [place], has a history of several inpatient stays on 3 S (most recently 07/24), and was admitted on 07/21/22 18:29 on a 201 voluntary commitment s/p medical admission for suicide attempt by OD. Chief Complaint "I'm ok". Review of Systems Sleep Information Total Hours of Sleep: 7 Meal Information Percent Meal Consumed - Breakfast: 100 Percent Meal Consumed - Lunch: 50 Percent Meal Consumed - Dinner: 95 Nutrition Comment: per paper documentation Subjective Subjective Patient was seen & assessed and interval progress reviewed with treatment team nursing and social work. More anxious last evening but took prn buspar with b enefit. Up early and showered and mood better. Feels "ok" today. Slept well. Nervous about her PCR test today which is required for [facility] admission. Socializing with some peers. Declined morning group. Physical Exam Psychiatric Orientation: alert and oriented x 3 Eye Contact: good eye contact Motor Behavior: no abnormal motor movements Speech: normal rate/rhythm/volume of speech Affect: + anxious affect Mood: + depressed mood and + anxious mood Thought Process: + concrete thought process Thought Content: reality based without delusions Suicidal Thoughts: denies suicidal thoughts (intermittent SI ), denies suicidal plan and denies suicidal intent Homicidal Thoughts: denies homicidal thoughts Hallucinations: no auditory hallucinations and no visual hallucinations Cognition: attention grossly intact and language grossly intact Estimated Intelligence: + below average estimated intelligence Insight: + limited insight Judgment: + limited judgement Vital Signs (Past 24 Hours) Last Vital Signs Temp 36.7 C 09/05/22 20:00 Pulse 102 H 08/26/22 06:39 Resp 16 08/26/22 06:38 BP 113/83 08/26/22 06:39 Pulse Ox 97 08/25/22 06:00 O2 Del Method 08/25/22 06:00 Results & Data ([facility]) Current Inpatient Medications Current Inpatient Medications: Current Inpatient Medications Acetaminophen (Acetaminophen 325 Mg Tab) 650 mg PO Q4H PRN PRN Reason: Headache or Minor Fever Stop: 09/18/22 12:59 Last Admin: 09/05/22 17:51 Dose: 650 mg Al Hydrox/Mg Hydrox/Simethicone (Aluminum/Magnesium Susp 30 Ml Udc) 30 ml PO Q4H PRN PRN Reason: GI Upset Stop: 09/18/22 12:59 Bismuth Subsalicylate (Bismuth Subsalicylate Liqd 236 Ml) 15 ml PO PRN PRN PRN Reason: Loose Stool Stop: 09/18/22 12:59 Last Admin: 08/29/22 20:12 Dose: 15 ml Buspirone HCl (Buspirone 5 Mg Tab) 5 mg PO TID PRN PRN Reason: Anxiety/Agitation Stop: 09/18/22 12:59 Last Admin: 09/05/22 19:30 Dose: 5 mg Clonazepam (Clonazepam 0.25 Mg Tab) 0.25 mg PO DAILY PRN PRN Reason: panic attack Stop: 09/18/22 13:54 Last Admin: 08/19/22 21:54 Dose: 0.25 mg Fluoxetine HCl (Fluoxetine Hcl 10 Mg Cap) 10 mg PO DAILYBD IFEOMA Stop: 10/04/22 17:14 Last Admin: 09/05/22 17:51 Dose: 10 mg Magnesium Hydroxide (Magnesium Hydroxide Susp 30 Ml Udc) 30 ml PO DAILY PRN PRN Reason: Constipation Stop: 09/18/22 12:59 Multi-Ingredient Cream (Eucerin Cr 120 Gm Jar) 1 appln EXT DAILY PRN PRN Reason: dry skin over knee Stop: 09/18/22 12:59 Ondansetron HCl (Ondansetron 4 Mg Od Tab) 4 mg PO Q6H PRN PRN Reason: Nausea Stop: 09/18/22 12:59 Last Admin: 08/27/22 13:34 Dose: 4 mg Pantoprazole Sodium (Pantoprazole 40 Mg Tab) 40 mg PO QAM IFEOMA Stop: 09/25/22 08:59 Last Admin: 09/05/22 08:35 Dose: 40 mg Sodium Chloride (Sodium Chloride 0.65% Na Soln 45 Ml ([place])) 1 - 2 sprays NA PRN PRN PRN Reason: Nasal Dryness/Congestion Stop: 09/18/22 13:04 Mental Health & Subst Abuse Tx Therapist Name of Therapist: Hubert Martinez Mortgage Loan Closer Name of Mortgage Loan Closer: DANIE Waktins Post Discharge Appointments Primary Care Physician Name Of Family Doctor/PCP: Hubert Mcpherson Specialist Name of Specialist: [facility] - Dr. Avila Phone Number for Specialist: Date of Appointment with Specialist: 09/10/22 Time of Appointment with Specialist: 3:30pm Specialty Appointment Comment: [address]; [address], [place], [place]
[2022-09-06] MEDS: PANTOprazole 40 MG TAB PO SCH (10:05)
[2022-09-06] MEDS: FLUoxetine HCL 10 MG CAP PO SCH (16:58)
--- NOTE | 2022-09-07 08:44 | Psychiatric Progress Note ---
Date of Service September 07, 2022 Impression / Recommendations Impression 21 yo female with a history of mood dysregulation, complex trauma hx, worsening depression on transition to living independently as an adult, limited coping skills tested by ACL repair. Diagnostically consistent with recurrent MDD in context of limited coping skills and social isolation and increasingly presents with likely cluster B traits/BPD given chronicity of her SI and very limited coping skills for emotional distress/self-harm urges. MNPR due to social skills, knee recovery, limited distress tolerance 09/07/22: Mood remains labile, more anxious and depressed at times when she thinks about upcoming transition to [facility]. Tolerating fluoxetine without any side effects. (1) MDD (major depressive disorder), recurrent episode, severe: (2) Post traumatic stress disorder (PTSD): (3) S/P ACL reconstruction: (4) Intellectual disability: Plan 09/07/22: Continue current medications and tx plan. 09/06/22: Negative PCR result. Plan for [facility] once bed available, remains unable to be safely discharged to the community 09/05/22: Continue current medications and tx plan. Plan for [facility] once bed is available. 09/04/22: Start fluoxetine 20mg daily with dinner (timing per her preference) for depression. 09/03/22: Continue current medications and treatment plan. HbA1c and fasting glucose tomorrow given ongoing abilify MORELOS use. 09/02/22: Doubt the bed-seeking behavior represents medication side effects, so will avoid making changes in the medication plan. 09/01/22: Will avoid making medication changes in the absence of clear symptom targets but will monitor closely. 08/31/22: No change in medication indicated. She should probably have a HgbA1c soon. 08/30/22: Continue current medications and treatment plan 08/29/22: pt requests no change in medication as she says she thinks she is seeing some benefit 08/27/22: accepted to [facility], unable to be safely discharged to the community without [facility] level of support or would readily decompensate. 08/25/22: d/c Lamictal. Desires trial of d/c antacid to once daily to minimize number of pills. Abilify maintenna due 09/03/22. 08/22/22: holding Lamictal at 50 mg until "rash" resolves per patient request. 08/21/2022: titrate Lamictal 100 mg daily. 08/19/22: Add KLonopin 0.25mg daily prn for panic attacks. 08/18/22: Continue current medications and tx plan. 08/17/22: Continue current medications and tx plan. 08/16/22: Discontinue Klonopin as may be contributing to daytime fatigue. 08/15/22: Continue current medications and tx plan. 08/14/22: Continue current medications and tx plan. 08/13/22: Continue current medications and tx plan. 08/12/22: Continue current medications and tx plan. 08/11/22: Continue current medications and tx plan. Ongoing coordination with [facility] regarding potential services for co-morbid intellectual disability. 08/10/22: Taper Klonopin to 0.25mg qd given concerns of disinhibition. 08/09/22: Continue current medications and tx plan. 08/08/2022: Continue current medications and tx plan. 08/07/2022: titrate lamictal to 50mg qhs. 08/04/2022: Abilify darryltenna today, awaiting addition input from CM on diversion 08/03/2022: Continue current medications and tx plan. Option for abilify MORELOS tomorrow if she is interested. 08/02/22: Ongoing insight-oriented approach. Continue current medications and tx plan. 08/01/22: Continue with current medications and tx plan. 07/31/22: Continue with current medications and tx plan. EKG tomorrow to reassess QTc. 07/30/22: Increase abilify to 20mg qd. 07/29/22: Continue with current medications and tx plan. 07/28/22: Increase abilify to 15mg tomorrow morning 07/27/22: Continue with current medications and tx plan. 07/26/22: titrate Abilify to 10 mg starting tomorrow 07/25/22: continue daily ekGs to titrate Abilify to 20 mg in intervals. Monitor sedation on Klonopin, gait is steady, will move 2nd dose to hs. CXR for TB clearance for anticipated [facility] hospital referral. 07/24/22: risks/benefits/alternatives reviewed re: Klonopin trial given random breakthrough anxiety. Discussed resuming Abilify oral dosing so can adjust/monitor QTc. Daily EKG ordered. patient agreeable and will start Abilify 5 mg daily today and Klonopin 0.25 mg po BID. She is ambulating well without her brace. consult PT for final exercises. 07/23/22: d/c Buspar as may be having residual serotonergic sensitivity, daily EKG per hospitalist recommendation, repeat labs unremarkable, vitals stable. Zofran prn. Hold Abilify maintenna due to day given QTc. 07/22/22: The patient was admitted to the [facility] ([facility] mental health unit) on q15 min checks (behavioral with suicide precautions) for safety. The patient will participate in group, recreational, and milieu therapies and will be offered additional individual and family sessions as clinically appropriate. Restarted Buspar on medical floor, repeat EKG in am to determine appropriateness of Abilify maintenna that is due. Hold Zyprexa. She is aware that would not recommend resume Vistaril or Lexapro. Will offer Buspar 5 mg TID prn as well as frequently requests prn and want to avoid benzos. Restart lamictal as plan of outpatient provider and has never titrated. PT consult as still receiving outpatient PT. Explore possible state hospital referral given need for longer term hospitalization. Inventory Assets Strengths: accepting of services, cooperative with unit routines Needs: improve coping skills, ongoing CM involvement in placement options Suicide Risk Level Suicide Risk Level: Moderate (q15 min suicide checks) (periods of mood lability with episodes of increased depression and SI but feels safe and agrees to let nursing know if she feels unsafe or unable to remain safe without additional support) Risk Factors Assessment Male: No : Yes Do You Have Access To A Gun?: No Health Problems: Yes Mental Health Diagnoses: Yes Substance Use Disorders: No Previous Psychiatric Hospitalization: Yes Protective Factors Assessment Stable Relationships: Yes Interval History Identifying Information BAUTISTA ALLRED is a 21-year-old F who currently lives in [place], has a history of several inpatient stays on 3 S (most recently 07/24), and was admitted on 07/21/22 18:29 on a 201 voluntary commitment s/p medical admission for suicide attempt by OD. Chief Complaint "I'm not good". Review of Systems Sleep Information Total Hours of Sleep: 8 Meal Information Percent Meal Consumed - Breakfast: 0 Percent Meal Consumed - Lunch: 90 Percent Meal Consumed - Dinner: 90 Nutrition Comment: per paper documentation Subjective Subjective Patient was seen & assessed and interval progress reviewed with treatment team nursing and social work. Took two showers yesterday to cope with anxiety. Went to bed early so missed evening community meeting. This morning was bright during community meeting but then retreated to her bed. When I saw her would only engage briefly to say she feels "not good" and is anxious about transition to [facility]. Intermittent SI. Physical Exam Psychiatric Orientation: alert and oriented x 3 Eye Contact: good eye contact Motor Behavior: no abnormal motor movements Speech: normal rate/rhythm/volume of speech Affect: + anxious affect and + constricted affect Mood: + depressed mood and + anxious mood Thought Process: + concrete thought process Thought Content: reality based without delusions Suicidal Thoughts: denies suicidal thoughts (intermittent SI ), denies suicidal plan and denies suicidal intent Homicidal Thoughts: denies homicidal thoughts Hallucinations: no auditory hallucinations and no visual hallucinations Cognition: attention grossly intact and language grossly intact Estimated Intelligence: + below average estimated intelligence Insight: + limited insight Judgment: + limited judgement Vital Signs (Past 24 Hours) Last Vital Signs Temp 36.7 C 09/05/22 20:00 Pulse 102 H 08/26/22 06:39 Resp 16 08/26/22 06:38 BP 113/83 08/26/22 06:39 Pulse Ox 97 08/25/22 06:00 O2 Del Method 08/25/22 06:00 Results & Data ([facility]) Laboratory Results Laboratory Results - last 24 hr 09/06/22 13:50 SARS-CoV-2 (PCR) NEGATIVE Current Inpatient Medications Current Inpatient Medications: Current Inpatient Medications Acetaminophen (Acetaminophen 325 Mg Tab) 650 mg PO Q4H PRN PRN Reason: Headache or Minor Fever Stop: 09/18/22 12:59 Last Admin: 09/05/22 17:51 Dose: 650 mg Al Hydrox/Mg Hydrox/Simethicone (Aluminum/Magnesium Susp 30 Ml Udc) 30 ml PO Q4H PRN PRN Reason: GI Upset Stop: 09/18/22 12:59 Bismuth Subsalicylate (Bismuth Subsalicylate Liqd 236 Ml) 15 ml PO PRN PRN PRN Reason: Loose Stool Stop: 09/18/22 12:59 Last Admin: 08/29/22 20:12 Dose: 15 ml Buspirone HCl (Buspirone 5 Mg Tab) 5 mg PO TID PRN PRN Reason: Anxiety/Agitation Stop: 09/18/22 12:59 Last Admin: 09/05/22 19:30 Dose: 5 mg Clonazepam (Clonazepam 0.25 Mg Tab) 0.25 mg PO DAILY PRN PRN Reason: panic attack Stop: 09/18/22 13:54 Last Admin: 08/19/22 21:54 Dose: 0.25 mg Fluoxetine HCl (Fluoxetine Hcl 10 Mg Cap) 10 mg PO DAILYBD IFEOMA Stop: 10/04/22 17:14 Last Admin: 09/06/22 16:58 Dose: 10 mg Magnesium Hydroxide (Magnesium Hydroxide Susp 30 Ml Udc) 30 ml PO DAILY PRN PRN Reason: Constipation Stop: 09/18/22 12:59 Multi-Ingredient Cream (Eucerin Cr 120 Gm Jar) 1 appln EXT DAILY PRN PRN Reason: dry skin over knee Stop: 09/18/22 12:59 Ondansetron HCl (Ondansetron 4 Mg Od Tab) 4 mg PO Q6H PRN PRN Reason: Nausea Stop: 09/18/22 12:59 Last Admin: 08/27/22 13:34 Dose: 4 mg Pantoprazole Sodium (Pantoprazole 40 Mg Tab) 40 mg PO QAM IFEOMA Stop: 09/25/22 08:59 Last Admin: 09/06/22 10:05 Dose: Not Given Sodium Chloride (Sodium Chloride 0.65% Na Soln 45 Ml ([place])) 1 - 2 sprays NA PRN PRN PRN Reason: Nasal Dryness/Congestion Stop: 09/18/22 13:04 Mental Health & Subst Abuse Tx Therapist Name of Therapist: Hubert Martinez Transplant Rn Name of Transplant Rn: DANIE Watkins Post Discharge Appointments Primary Care Physician Name Of Family Doctor/PCP: Hubert Mcpherson Specialist Name of Specialist: [facility] - Dr. Avila Phone Number for Specialist: Date of Appointment with Specialist: 09/10/22 Time of Appointment with Specialist: 3:30pm Specialty Appointment Comment: [address]; [address], [place], [place]
[2022-09-07] MEDS: PANTOprazole 40 MG TAB PO SCH (08:59)
[2022-09-07] MEDS: FLUoxetine HCL 10 MG CAP PO SCH (17:23)
--- NOTE | 2022-09-08 08:39 | Psychiatric Progress Note ---
Date of Service September 08, 2022 Impression / Recommendations Impression 21 yo female with a history of mood dysregulation, complex trauma hx, worsening depression on transition to living independently as an adult, limited coping skills tested by ACL repair. Diagnostically consistent with recurrent MDD in context of limited coping skills and social isolation and increasingly presents with likely cluster B traits/BPD given chronicity of her SI and very limited coping skills for emotional distress/self-harm urges. MNPR due to social skills, knee recovery, limited distress tolerance 09/08/22: Bright affect and good mood today, excited about transition to [facility]. (1) MDD (major depressive disorder), recurrent episode, severe: (2) Post traumatic stress disorder (PTSD): (3) S/P ACL reconstruction: (4) Intellectual disability: Plan 09/08/22: Medications sent to outpatient pharmacy that [facility] uses. Plan for discharge to [facility] tomorrow when they can accept her. 09/07/22: Continue current medications and tx plan. 09/06/22: Negative PCR result. Plan for [facility] once bed available, remains unable to be safely discharged to the community 09/05/22: Continue current medications and tx plan. Plan for [facility] once bed is available. 09/04/22: Start fluoxetine 20mg daily with dinner (timing per her preference) for depression. 09/03/22: Continue current medications and treatment plan. HbA1c and fasting glucose tomorrow given ongoing abilify MORELOS use. 09/02/22: Doubt the bed-seeking behavior represents medication side effects, so will avoid making changes in the medication plan. 09/01/22: Will avoid making medication changes in the absence of clear symptom targets but will monitor closely. 08/31/22: No change in medication indicated. She should probably have a HgbA1c soon. 08/30/22: Continue current medications and treatment plan 08/29/22: pt requests no change in medication as she says she thinks she is seeing some benefit 08/27/22: accepted to [facility], unable to be safely discharged to the community without [facility] level of support or would readily decompensate. 08/25/22: d/c Lamictal. Desires trial of d/c antacid to once daily to minimize number of pills. Abilify maintenna due 09/03/22. 08/22/22: holding Lamictal at 50 mg until "rash" resolves per patient request. 08/21/2022: titrate Lamictal 100 mg daily. 08/19/22: Add KLonopin 0.25mg daily prn for panic attacks. 08/18/22: Continue current medications and tx plan. 08/17/22: Continue current medications and tx plan. 08/16/22: Discontinue Klonopin as may be contributing to daytime fatigue. 08/15/22: Continue current medications and tx plan. 08/14/22: Continue current medications and tx plan. 08/13/22: Continue current medications and tx plan. 08/12/22: Continue current medications and tx plan. 08/11/22: Continue current medications and tx plan. Ongoing coordination with [facility] regarding potential services for co-morbid intellectual disability. 08/10/22: Taper Klonopin to 0.25mg qd given concerns of disinhibition. 08/09/22: Continue current medications and tx plan. 08/08/2022: Continue current medications and tx plan. 08/07/2022: titrate lamictal to 50mg qhs. 08/04/2022: Abilify maintenna today, awaiting addition input from CM on diversion 08/03/2022: Continue current medications and tx plan. Option for abilify MORELOS tomorrow if she is interested. 08/02/22: Ongoing insight-oriented approach. Continue current medications and tx plan. 08/01/22: Continue with current medications and tx plan. 07/31/22: Continue with current medications and tx plan. EKG tomorrow to reassess QTc. 07/30/22: Increase abilify to 20mg qd. 07/29/22: Continue with current medications and tx plan. 07/28/22: Increase abilify to 15mg tomorrow morning 07/27/22: Continue with current medications and tx plan. 07/26/22: titrate Abilify to 10 mg starting tomorrow 07/25/22: continue daily ekGs to titrate Abilify to 20 mg in intervals. Monitor sedation on Klonopin, gait is steady, will move 2nd dose to hs. CXR for TB clear ance for anticipated [facility] referral. 07/24/22: risks/benefits/alternatives reviewed re: Klonopin trial given random breakthrough anxiety. Discussed resuming Abilify oral dosing so can adjust /monitor QTc. Daily EKG ordered. patient agreeable and will start Abilify 5 mg daily today and Klonopin 0.25 mg po BID. She is ambulating well without her brace. consult PT for final exercises. 07/23/22: d/c Buspar as may be having residual serotonergic sensitivity, daily EKG per hospitalist recommendation, repeat labs unremarkable, vitals stable. Zofran prn. Hold Abilify maintenna due to day given QTc. 07/22/22: The patient was [facility] unit) on q15 min checks (behavioral with suicide precautions) for safety. The patient will participate in group, recreational, and milieu therapies and will be offered additional individual and family sessions as clinically appropriate. Restarted Buspar on medical floor, repeat EKG in am to determine appropriateness of Abilify maintenna that is due. Hold Zyprexa. She is aware that would not recommend resume Vistaril or Lexapro. Will offer Buspar 5 mg TID prn as well as frequently requests prn and want to avoid benzos. Restart lamictal as plan of outpatient provider and has never titrated. PT consult as still receiving outpatient PT. Explore possible state hospital referral given need for longer term hospitalization. Inventory Assets Strengths: accepting of services, cooperative with unit routines Needs: improve coping skills, ongoing CM involvement in placement options Suicide Risk Level Suicide Risk Level: Moderate (q15 min suicide checks) (periods of mood lability with episodes of increased depression but currently denies SI and positive mood and feels safe and agrees to let nursing know if she feels unsafe or unable to remain safe without additional support) Risk Factors Assessment Male: No : Yes Do You Have Access To A Gun?: No Health Problems: Yes Mental Health Diagnoses: Yes Substance Use Disorders: No Previous Psychiatric Hospitalization: Yes Protective Factors Assessment Stable Relationships: Yes Interval History Identifying Information BAUTISTA ALLRED is a 21-year-old F who currently lives in [place], has a history of several inpatient stays on [facility] (most recently 07/24), and was admitted on 07/21/22 18:29 on a 201 voluntary commitment s/p medical admission for suicide attempt by OD. Chief Complaint "I'm ready". Review of Systems Sleep Information Total Hours of Sleep: 8 Meal Information Percent Meal Consumed - Breakfast: 100 Percent Meal Consumed - Lunch: 100 Percent Meal Consumed - Dinner: 100 Nutrition Comment: per paper documentation Subjective Subjective Patient was seen & assessed and interval progress reviewed with treatment team nursing and social work. Attending groups. Showering. Eating her meals. Today reports her mood is "good" due to plan for [facility] admission tomorrow. Excited about transition, denies any anxiety. Denies any medication side effects. Physical Exam Psychiatric Orientation: alert and oriented x 3 Eye Contact: good eye contact Motor Behavior: no abnormal motor movements Speech: normal rate/rhythm/volume of speech Affect: euthymic affect Mood: no depressed mood and no anxious mood Thought Process: + concrete thought process Thought Content: reality based without delusions Suicidal Thoughts: denies suicidal thoughts, denies suicidal plan and denies suicidal intent Homicidal Thoughts: denies homicidal thoughts Hallucinations: no auditory hallucinations and no visual hallucinations Cognition: attention grossly intact and language grossly intact Estimated Intelligence: + below average estimated intelligence Insight: + limited insight Judgment: + limited judgement Vital Signs (Past 24 Hours) Last Vital Signs Temp 36.9 C 09/07/22 19:39 Pulse 102 H 08/26/22 06:39 Resp 16 08/26/22 06:38 BP 113/83 08/26/22 06:39 Pulse Ox 97 08/25/22 06:00 O2 Del Method 08/25/22 06:00 Results & Data ([facility]) Current Inpatient Medications Current Inpatient Medications: Current Inpatient Medications Acetaminophen (Acetaminophen 325 Mg Tab) 650 mg PO Q4H PRN PRN Reason: Headache or Minor Fever Stop: 09/18/22 12:59 Last Admin: 09/05/22 17:51 Dose: 650 mg Al Hydrox/Mg Hydrox/Simethicone (Aluminum/Magnesium Susp 30 Ml Udc) 30 ml PO Q4H PRN PRN Reason: GI Upset Stop: 09/18/22 12:59 Bismuth Subsalicylate (Bismuth Subsalicylate Liqd 236 Ml) 15 ml PO PRN PRN PRN Reason: Loose Stool Stop: 09/18/22 12:59 Last Admin: 08/29/22 20:12 Dose: 15 ml Buspirone HCl (Buspirone 5 Mg Tab) 5 mg PO TID PRN PRN Reason: Anxiety/Agitation Stop: 09/18/22 12:59 Last Admin: 09/05/22 19:30 Dose: 5 mg Clonazepam (Clonazepam 0.25 Mg Tab) 0.25 mg PO DAILY PRN PRN Reason: panic attack Stop: 09/18/22 13:54 Last Admin: 08/19/22 21:54 Dose: 0.25 mg Fluoxetine HCl (Fluoxetine Hcl 10 Mg Cap) 10 mg PO DAILYBD IFEOMA Stop: 10/04/22 17:14 Last Admin: 09/07/22 17:23 Dose: 10 mg Magnesium Hydroxide (Magnesium Hydroxide Susp 30 Ml Udc) 30 ml PO DAILY PRN PRN Reason: Constipation Stop: 09/18/22 12:59 Multi-Ingredient Cream (Eucerin Cr 120 Gm Jar) 1 appln EXT DAILY PRN PRN Reason: dry skin over knee Stop: 09/18/22 12:59 Ondansetron HCl (Ondansetron 4 Mg Od Tab) 4 mg PO Q6H PRN PRN Reason: Nausea Stop: 09/18/22 12:59 Last Admin: 08/27/22 13:34 Dose: 4 mg Pantoprazole Sodium (Pantoprazole 40 Mg Tab) 40 mg PO QAM IFEOMA Stop: 09/25/22 08:59 Last Admin: 09/07/22 08:59 Dose: 40 mg Sodium Chloride (Sodium Chloride 0.65% Na Soln 45 Ml ([place])) 1 - 2 sprays NA PRN PRN PRN Reason: Nasal Dryness/Congestion Stop: 09/18/22 13:04 Mental Health & Subst Abuse Tx Therapist Name of Therapist: Hubert Martinez Mixologist Name of Mixologist: DANIE Watkins Post Discharge Appointments Primary Care Physician Name Of Family Doctor/PCP: Hubert Mcpherson Specialist Name of Specialist: [facility] - Dr. Avila Phone Number for Specialist: Date of Appointment with Specialist: 09/10/22 Time of Appointment with Specialist: 3:30pm Specialty Appointment Comment: [address]; [address], [place], [place]
[2022-09-08] MEDS: PANTOprazole 40 MG TAB PO SCH (08:44)
[2022-09-08] MEDS: busPIRone 5 MG TAB PO PRN (13:02)
[2022-09-08] MEDS: FLUoxetine HCL 10 MG CAP PO SCH (17:22)
--- NOTE | 2022-09-09 06:42 | Discharge Summary ---
Date of Service September 09, 2022 History of Present Illness Liberty was discharged from on 07/16/22 and readmited to hospitalist service 07/20/22 following an intentional OD of Vistaril and Lexapro on 07/19/22. As per psychiatric consultation on 07/30/22: Patient has been experiencing gradual decline since her ACL repair last month. She lives alone and was relocated to [place] from [facility] and some of her personal items were misplaced (her i pad) so limited activities she can do at home. Despite compliance with MORELOS Abilify and meds she was having thoughts to OD on pain meds and/or reaction to toradol and presented to [facility] earlier this month with SI and visual fisher of seeing arrows around lights. She also doesn't get out as much as [place]. She has a variety of community supports (CM, med management, peers support) but otherwise no family support having aged out of services. She continued to feel hopeless and lonely following her discharge on 07/16/22 and ingested unclear amount of remaining Vistaril and Lexapro as an OD attempt and was admitted for telemetry monitoring for consistently prolonged QTc on EKG. Today she denies SI while in the hospital but is unable to describe what she can do differently. Is somatic in interactions with staff. Appears in NAD. Physical Exam Vital Signs (Past 24 Hours) Last Vital Signs Temp 37 C 09/09/22 06:36 Pulse 128 H 09/09/22 06:36 Resp 16 09/09/22 06:36 BP 96/66 L 09/09/22 06:36 Pulse Ox 97 08/25/22 06:00 O2 Del Method 08/25/22 06:00 See admission H&P and DOD summary. Principal Diagnosis Major Depressive Disorder, Intellectual Disability Psychiatric Data In short, safety was maintained and the patient was cooperative with care. Liberty had an extended hospitalization due to multiple recent inpatient admissions over the last year and re-admission days after discharge for a serious suicide attempt with ongoing poor insight and limited coping skills. She has a history of mood dysregulation, complex trauma history, with worsening depression on transition to living independently as an adult, limited coping skills tested by ACL repair in the late fall. Diagnostically her presentation was felt to be consistent with recurrent major depressive disorder in context of limited coping skills and social isolation and increasingly was felt to present with likely cluster B traits given the chronicity of her SI and very limited coping skills for emotional distress/self-harm urges. Her limited insight, poor coping skills and significant emotional reactivity and lability was also felt to be significantly impacted by her intellectual disability. Due to her intellectual disability and concrete thought process she struggles to understand, retain and utilize strategies to cope with emotional distress and often oscillates from bright/happy mood with laughter to severe depression/tearfulness/suicidal thoughts within minutes. This made the idea of independent living, without additional focused skills, untenable from a safety standpoint. The decision for longer term placement to work on additional coping skills, build insight, and have increased support was made with referral and acceptance to the [facility] program. Medications have not been particularly helpful in the past with the exception of Abilify MORELOS which Hope identifies as beneficial for mood stabilization and depression. Medication changes during this admission included ongoing use of Abilify Maintena 400mg IM qmonth, addition of Buspar as needed for anxiety and fluoxetine 10mg qd for depression and they tolerated this well. Baseline labs of fasting glucose, fasting lipid profile, were preformed and normal. Recommend repeat fasting glucose, HbA1c and fasting lipid profile at least annually. If symptoms arise recommend checking BP, EKG, prolactin level as clinically indica jony or relevant. A safety plan was completed prior to discharge. On the day of discharge she stated her mood was "good" and remained future- oriented including going to the [facility]. Day of Discharge Assessment Today the patient voices readiness for discharge. They note improvement in mood and anxiety. They deny thoughts of harm to self or others. Thoughts are organized and they are clinically improved from admission. There is no evidence of psychosis. They improved in the hospital with support and medication adjustments. They agree to take medications as prescribed and keep follow-up appointments. At the time of the discharge they are deemed to be stable and appropriate for outpatient level of care. They are not deemed to be at imminent risk of harm to self or others. They are aware of emergency and crisis services. Knows to call 911 or go to nearest emergency care center if in a crisis which cannot be handled as an outpatient. Transition of Care Transition Of Care Record: was reviewed with the patient Advance Directives Advance Directives Information Provided: Yes Advance Directives: No Mental Health Advance Directive: No Advance Directives on File: No Living Will: No Power of Editor Managing Director: No Advance Directives Reason:: Declines as Mental Health Visit. Suicide Risk Level Suicide Risk Level Comments: Acute risk is low given improvement in mood and recent denial of SI, lack of access to lethal means, improvement in psychosis and starting [facility] program with supervision and intensive support. Chronic risk is moderate to high given multiple non-modifiable risk factors: psychiatric co-morbid diagnoses, periods of impulsivity, prior attempts,emotional reactivity, prior psychiatric hospitalizations, poor social support, mood disorder, possible cluster B personality disorder, childhood trauma, but also with protective factors including outpatient care in place, willing to engage with [facility] program to learn more coping skills, capacity to establish therapeutic alliance, willingness to engage with treatment. Counseled on ways to reduce acute and chronic risk including engaging with [facility], using safety plan if needed, utilizing supports, taking medication, and using coping skills. Modifiable risk factors of SI, anxiety and depression were addressed during hospitalization through development of new coping skills, safety planning, medication adjustments and disposition planning of [facility] for increased support. Risk Factors Assessment Male: No : Yes Do You Have Access To A Gun?: No Health Problems: Yes Mental Health Diagnoses: Yes Substance Use Disorders: No Previous Attempt: Yes Previous Psychiatric Hospitalization: Yes Hopelessness: No Protective Factors Assessment Stable Relationships: Yes Discharge Data Consultations 08/09/22 16:13 Consult Nutrition Routine Lab Results 07/23/22 09/04/22 09/04/22 10:13 07:01 07:01 Sodium 137 Potassium 4.1 Chloride 104 Carbon Dioxide 24 Anion Gap 9 BUN 15 Creatinine 0.82 Est Cr Clr Drug Dosing 100.3 Est GFR ( Amer) 118.6 Est GFR (Non-Af Amer) 102.3 BUN/Creatinine Ratio 18.3 Glucose 125 H Fasting Glucose 88 Estimat Average Glucose 108 Hemoglobin A1c 5.4 Calcium 9.5 Phosphorus 3.4 Magnesium 2.1 Albumin 4.3 Amylase 28 SARS-CoV-2 (PCR) 09/06/22 13:50 Sodium Potassium Chloride Carbon Dioxide Anion Gap BUN Creatinine Est Cr Clr Drug Dosing Est GFR ( Amer) Est GFR (Non-Af Amer) BUN/Creatinine Ratio Glucose Fasting Glucose Estimat Average Glucose Hemoglobin A1c Calcium Phosphorus Magnesium Albumin Amylase SARS-CoV-2 (PCR) NEGATIVE Hospital Course (1) MDD (major depressive disorder), recurrent episode, severe: (2) Post traumatic stress disorder (PTSD): (3) S/P ACL reconstruction: (4) Intellectual disability: Plan 09/08/22: Medications sent to outpatient pharmacy that [facility] uses. Plan for discharge to [facility] tomorrow when they can accept her. 09/07/22: Continue current medications and tx plan. 09/06/22: Negative PCR result. Plan for [facility] once bed available, remains unable to be safely discharged to the community 09/05/22: Continue current medications and tx plan. Plan for [facility] once bed is available. 09/04/22: Start fluoxetine 20mg daily with dinner (timing per her preference) for depression. 09/03/22: Continue current medications and treatment plan. HbA1c and fasting glucose tomorrow given ongoing abilify MORELOS use. 09/02/22: Doubt the bed-seeking behavior represents medication side effects, so will avoid making changes in the medication plan. 09/01/22: Will avoid making medication changes in the absence of clear symptom targets but will monitor closely. 08/31/22: No change in medication indicated. She should probably have a HgbA1c soon. 08/30/22: Continue current medications and treatment plan 08/29/22: pt requests no change in medication as she says she thinks she is seeing some benefit 08/27/22: accepted to [facility], unable to be safely discharged to the community w [facility] level of support or would readily decompensate. 08/25/22: d/c Lamictal. Desires trial of d/c antacid to once daily to minimize number of pills. Renetta maintenna due 09/03/22. 08/22/22: holding Lamictal at 50 mg until "rash" resolves per patient request. 08/21/2022: titrate Lamictal 100 mg daily. 08/19/22: Add KLonopin 0.25mg daily prn for panic attacks. 08/18/22: Continue current medications and tx plan. 08/17/22: Continue current medications and tx plan. 08/16/22: Discontinue Klonopin as may be contributing to daytime fatigue. 08/15/22: Continue current medications and tx plan. 08/14/22: Continue current medications and tx plan. 08/13/22: Continue current medications and tx plan. 08/12/22: Continue current medications and tx plan. 08/11/22: Continue current medications and tx plan. Ongoing coordination with [facility] regarding potential services for co-morbid intellectual disability. 08/10/22: Taper Klonopin to 0.25mg qd given concerns of disinhibition. 08/09/22: Continue current medications and tx plan. 08/08/2022: Continue current medications and tx plan. 08/07/2022: titrate lamictal to 50mg qhs. 08/04/2022: Abilify maintenna today, awaiting addition input from CM on diversion 08/03/2022: Continue current medications and tx plan. Option for abilify MORELOS tomorrow if she is interested. 08/02/22: Ongoing insight-oriented approach. Continue current medications and tx plan. 08/01/22: Continue with current medications and tx plan. 07/31/22: Continue with current medications and tx plan. EKG tomorrow to reassess QTc. 07/30/22: Increase abilify to 20mg qd. 07/29/22: Continue with current medications and tx plan. 07/28/22: Increase abilify to 15mg tomorrow morning 07/27/22: Continue with current medications and tx plan. 07/26/22: titrate Abilify to 10 mg starting tomorrow 07/25/22: continue daily ekGs to titrate Abilify to 20 mg in intervals. Monitor sedation on Klonopin, gait is steady, will move 2nd dose to hs. CXR for TB clearance for anticipated [facility] hospital referral. 07/24/22: risks/benefits/alternatives reviewed re: Klonopin trial given random breakthrough anxiety. Discussed resuming Abilify oral dosing so can adjust/monitor QTc. Daily EKG ordered. patient agreeable and will start Abilify 5 mg daily today and Klonopin 0.25 mg po BID. She is ambulating well without her brace. consult PT for final exercises. 07/23/22: d/c Buspar as may be having residual serotonergic sensitivity, daily EKG per hospitalist recommendation, repeat labs unremarkable, vitals stable. Zofran prn. Hold Abilify maintenna due to day given QTc. 07/22/22: The patient was admitted to the [facility] ([facility] unit) on q15 min checks (behavioral with suicide precautions) for safety. The patient will participate in group, recreational, and milieu therapies and will be offered additional individual and family sessions as clinically appropriate. Restarted Buspar on medical floor, repeat EKG in am to determine appropriateness of Abilify maintenna that is due. Hold Zyprexa. She is aware that would not recommend resume Vistaril or Lexapro. Will offer Buspar 5 mg TID prn as well as frequently requests prn and want to avoid benzos. Restart lamictal as plan of outpatient provider and has never titrated. PT consult as still receiving outpatient PT. Explore possible state hospital referral given need for longer term hospitalization. Mental Health & Subst Abuse Tx Therapist Name of Therapist: Hubert Martinez Health Outcomes Liaison Name of Health Outcomes Liaison: DANIE Watkins Post Discharge Appointments Primary Care Physician Name Of Family Doctor/PCP: Hubert Mcpherson Specialist Name of Specialist: [facility] - Dr. Avila Phone Number for Specialist: Date of Appointment with Specialist: 09/10/22 Time of Appointment with Specialist: 3:30pm Specialty Appointment Comment: [address]; [address], [place], [place] Other #1: Name of Aftercare Appointment: [facility] Phone Number of Aftercare Appointment: [phone] Aftercare Appointment Comment: [place] [address] Discharge Plan Discharge Items Patient Disposition: Home - Self-Care Reason For Visit: INTENTIONAL OVERDOSE Discharge Diagnosis: Major Depressive Disorder, Intellectual Disability Activity: Resume your previous activity Non-emergency contact: Primary Care Provider, Psychiatrist and Control System Computer Scientist Call non-emergency contact if: you have any medication questions and your symptoms worsen Follow-up/Referrals: Melody Mcpherson, [Primary Care Provider] - Diet: Regular Addtl Attending Provider Instructions: SPECIAL CARE INSTRUCTIONS: 1. Follow through with your scheduled aftercare appointments. If unable to keep an appointment, please call to reschedule. 2. Take your medication only as prescribed. Medication should not be changed or stopped without the approval of your doctor. In the event of worsening symptoms or concerns about side effects, contact your doctor immediately. 3. Utilize new healthy coping skills, anger management skills, and stress management skills learned during your hospitalization. Journal feelings and process them with a support person. Identify stressors or situations that may result in relapse, deterioration or inappropriate behaviors and develop a plan to deal with those issues. 4. If your coping skills are ineffective and you are in crisis, contact your outpatient providers for direction. If unable to reach your providers, please call the [facility] CRISIS LINE AT , go to the [facility] walk-in center at [address], [place], or go to the closest Emergency Room. 5. Avoid alcohol and un-prescribed drugs. 6. You have been provided with the Mental Health Advance Directives Pamphlet for your review. 7. Your condition is stable for discharge to outpatient level of care, but recovery is an ongoing process. Ifthoughts to harm yourself or others return, follow the safety plan developed during your stay. Planning for a safe return home includes securing weapons. Our treatment team recommends weaponsbe removed from the home until your outpatient provider reassesses your progress. In rare cases where the items themselvescannot be removed, guns and ammunitionshould be secured separatelyand keys stored by a reliable personoutside of the home. If you were admitted on an involuntary commitment, the police or other legal authorities may be involved in this process. AFTERCARE APPOINTMENTS: * Please call your insurance company prior to your scheduled appointment to confirm your aftercare providers are covered. Take your insurance information to your appointments. WHO TO CALL AND WHEN: Medical Emergencies: For questions or emergencies related to your hospital stay, please contact the Inpatient Behavioral Health Unit at [phone]. A psychiatric secretary is on-call 23/02 for the Behavioral Health Unit for emergencies At any time you feel your situation is an emergency, you may also call 911 immediately. Pending Studies at Discharge: No Stand-Alone Forms: My [facility] Medications and DC Order Prescriptions: New buspirone 5 mg Tablet 5 mg PO BID PRN (Reason: anxiety) 30 Days Qty: 60 0RF fluoxetine 10 mg Capsule 10 mg PO DAILYBD 30 Days Qty: 30 0RF pantoprazole 40 mg Tablet,Delayed Release (Dr/Ec) 40 mg PO QAM 30 Days Qty: 30 0RF Abilify Maintena 400 mg suspension,extended rel recon 400 mg IM Q28D Qty: 1 0RF Rx Instructions: Next dose to be given on 10/01/2022. Start date: 10/01/2022. Discontinued escitalopram oxalate 20 mg Tablet 20 mg PO QAM 30 Days Qty: 30 0RF olanzapine 5 mg Tablet 5 mg PO HS 30 Days Qty: 30 0RF topiramate 25 mg Tablet 25 mg PO QAM 30 Days Qty: 30 0RF buspirone 5 mg Tablet 5 mg PO BID 30 Days Qty: 60 0RF hydroxyzine HCl 25 mg Tablet 25 mg PO BID PRN (Reason: anxiety/insomnia) 30 Days Qty: 60 0RF lamotrigine [Lamictal] 25 mg Tablet 25 mg PO QAM 30 Days Qty: 30 0RF tramadol 100 mg tablet 100 mg PO Q6H Qty: 30 0RF Discharge Orders: Discharge Order (Routine); Ordered 09/09/22 Ordered By: Millie Sadler Admission Data Admit Date/Time: 07/21/22 18:29 Attending Provider: Millie Sadler Admit Provider: Kierra Call Primary Care Provider: Melody Mcpherson Other Providers: Millie Sadler Other Interventions: Discharge Summary Assessment (RN) Last Done: 09/09/22 07:55 PSY Interdisciplinary Discharge Planning Last Done: 09/09/22 08:05 Coding Level of Care Code 70462 D/C day mgmt > 30 min Diagnoses MDD (major depressive disorder), recurrent episode, severe F33.2 Post traumatic stress disorder (PTSD) F43.10 S/P ACL reconstruction Z98.890 Intellectual disability F79 Time Spent (min) 35
[2022-09-09] MEDS: PANTOprazole 40 MG TAB PO SCH (07:17)
== END 2022-09-09 08:32 | disposition home or self-care (01) | DRG 918 ==
LOC: 3S 18:29 → SUATTDRO 18:29
DX: F43.10 Post-traumatic stress disorder, unspecified; T43.222A Poisoning by selective serotonin reuptake inhibitors, intentional self-harm, initial encounter; R94.31 Abnormal electrocardiogram [ECG] [EKG]; Z88.8 Allergy status to other drugs, medicaments and biological substances; T43.592A Poisoning by other antipsychotics and neuroleptics, intentional self-harm, initial encounter; R45.851 Suicidal ideations; M25.551 Pain in right hip; Y92.230 Patient room in hospital as the place of occurrence of the external cause; Z98.890 Other specified postprocedural states; X58.XXXA Exposure to other specified factors, initial encounter; F79 Unspecified intellectual disabilities; M25.552 Pain in left hip; F41.9 Anxiety disorder, unspecified; Z79.899 Other long term (current) drug therapy; S30.811A Abrasion of abdominal wall, initial encounter; F32.2 Major depressive disorder, single episode, severe without psychotic features; Y93.89 Activity, other specified